=== PATIENT | female | born 1950 | race Caucasian/White ===

== ENCOUNTER 2023-10-12 13:54 | Outpatient (OUT) | payer MEDICARE, SELFPAY ==
--- NOTE | 2023-10-12 13:55 | VEIN_ITS ---
Patient Name: JACQUELIN SORTO MR#: [id number] : 1950 Exam Date: 10/12/2023 Ordering Doctor: DR JB LI M.D. RADIOLOGY REPORT PROCEDURE: VC EXT VENOUS REFLUX KAYLIE LMTD COMPARISON: None. INDICATIONS: I83.813 Pain due to varicose veins of bilateral legs TECHNIQUE: Duplex imaging of the lower extremity to assess the deep and superficial venous system for the presence of deep or superficial venous incompetence and to document the location and severity of disease. The study includes evaluation of the great saphenous vein (GSV), anterior accessory saphenous vein (AASV) and small saphenous vein (SSV). Patient scanned in reverse Trendelenburg and standing. FINDINGS: RIGHT LOWER EXTREMITY: Saphenofemoral Junction Reflux: Yes 7.9mm 3.0 sec GSV: Diam (mm) Reflux/ Time (sec) Proximal Thigh 9.0 Yes 0.9 Mid Thigh 4.0 Yes 2.5 Distal Thigh N/A Prox Calf N/A Mid Calf N/A Saphenopopliteal Junction Reflux: 5.8mm Yes 0.9 SSV: Proximal Calf 5.9 Yes 0.7 Mid Calf 1.9 Yes 0.4 AASV: Not present Thrombi: No acute or chronic thrombus. Compressibility: Normal. Flow: Mild deep venous reflux. Preforator: Dist/med lower leg 3.2 mm, 0.9s reflux. Prox/med lower leg 3.1 mm, 3.3s reflux. Multiple perfs connected to VV in thigh anterior. Largest 3.9 mm. Tech Note: GSV was previously treated. Incompetent varicose vein medial/anterior knee measures 4.1 mm with 0.6s reflux. Varicose vein medial/anterior/distal thigh measures 4.2 mm with 1.5s reflux. LEFT LOWER EXTREMITY: Saphenofemoral Junction Reflux: Yes 8.4 mm 4.8 sec GSV: Diam (mm) Reflux/Time (sec) Proximal Thigh 8.1 Yes 1.5 Mid Thigh 3.0 Yes 0.5 Distal Thigh 3.2 Yes 0.5 Prox Calf 2.4 Yes 0.9 Mid Calf 2.0 Yes 0.4 Saphenopopliteal Junction Relux: 4.1 mm Yes 0.4 SSV: Proximal Calf 6.0 Yes 0.3 Mid Calf 2.4 No AASV: Proximal Thigh 3.9 Yes 1.7 Mid Thigh 2.3 Yes 0.6 Distal Thigh Thrombi: No acute or chronic thrombus. Compressibility: Normal. Flow: Minimal deep venous reflux. Online Communications Manager: Mid medial lower leg 2.6 mm with 0.7s reflux. Prox anterior lower leg 1.8 mm with 0.4s reflux. Tech Note: Edema noted in proximal anterior lower leg in area of pain. Incompetent varicose vein proximal anterior lower leg measures 3.1 mm with 0.5s reflux. CONCLUSION: 1. Venous insufficiency in the remainder of the proximal right great saphenous vein with no associated varicosities 2. Kndt-pm-[id number] venous insufficiency left great saphenous vein with saphenopopliteal junction reflux and dilatation 3. Axpl-bz-brrrppei reflux left anterior accessory saphenous vein without dilatation 4. Bilateral incompetent varicose veins Dictated by: Jb Li MD on 10/12/2023 at 15:23 Approved by: Jb Li MD on 10/12/2023 at 15:28
--- NOTE | 2023-10-12 13:55 | VEIN_ITS ---
Patient Name: JACQUELIN SORTO MR#: [id number] : 1950 Exam Date: 10/12/2023 Ordering Doctor: DR JB LI M.D. RADIOLOGY REPORT PROCEDURE: [facility] [place] - OFFICE VISIT INITIAL COMPARISON: None. PROGRESS NOTES: 72-year-old female who presents with a long history of lower extremity pain swelling and varicose veins going back more than 20 years. The patient has previously been treated in the [facility] with intravenous laser ablation of the right great saphenous vein in 2001 followed by injection sclerotherapy in 2016. The patient reports aching heavy dull pain rating the pain as a 5 on a scale of 1-10. The patient's symptoms are significantly exacerbated by prolonged standing and are only partially relieved by rest, leg elevation, exercise, support stockings which she has worn for many years and over the counter Advil. The patient has had 2 episodes of acute right leg hemorrhage related to razor trauma from pre hemorrhagic veins. The patient denies any signs and symptoms to suggest arterial ischemia. The patient describes a family history significant for hypertension in her mother fluid heart disease in her father. . Fourth grandchildren. Patient's medical history is significant for breast cancer 15 years ago, hypertension, hyperparathyroidism, squamous cell carcinoma. Past surgical history significant for appendectomy, , parathyroidectomy, shoulder surgery, total hysterectomy, left knee replacement. The patient occasionally drinks alcohol. The patient has never smoked. No illicit drug use. No history of deep venous thrombus or pulmonary embolus. See separate history and physical for medication list. The patient has worn compression stockings for 20 years After review of nurse notes, history and physical exam I discussed at length the pathophysiology of venous hypertension and possible treatments, therapies and strategies available. We discussed at length the importance of elevating the lower extremities above the level of the heart, increased physical activity and compression stocking use. We discussed intravenous laser ablation, micro foam chemical ablation and injection sclerotherapy. Risks benefits alternatives were discussed. Surgical interventions including ligation and stripping and phlebectomy were discussed with the patient. The patient's questions were answered. Ultrasound venous reflux study performed the same day was discussed at length with the patient. The report demonstrates mild to moderate left great saphenous vein venous insufficiency. Mild to moderate left anterior accessory saphenous vein venous insufficiency. Bilateral incompetent varicose veins. PHYSICAL EXAM: The right leg demonstrates multiple dilated varicose veins along the anterior and medial thigh, knee and lower leg. Moderate diffuse reticular and spider veins. Scattered pre hemorrhagic veins on the medial and lateral lower leg. Mild hemosiderin staining. No active ulceration. The left leg demonstrates scattered varicose reticular and spider veins. No subcutaneous edema or hemosiderin staining. No active ulceration. Both thighs, legs and feet were symmetrically warm to the touch. Good posterior tibial and dorsalis pedis pulses were present bilaterally. VEIN/VC Facility NEW Comprehensive IMPRESSION: 1. Left great and anterior accessory saphenous vein venous insufficiency with dilatation 2. Bilateral lower extremity varicose veins, right greater than left. Bilateral pre hemorrhagic veins, right greater than left 3. No significant lower extremity subcutaneous edema. Mild hemosiderin staining on the right 4. No flow significant arterial disease 5. CEAP: C4a, Ep, As, Pr PLAN: 1. Possible endovenous laser ablation of the left great saphenous vein followed by left anterior accessory saphenous vein 2. Bilateral micro foam chemical ablation of incompetent varicose veins 3. Injection sclerotherapy bilateral reticular and spider veins 4. Continue long-term use of bilateral near thigh-high 20-30 mm compression stockings 5. Continue leg elevation and physical activity for symptomatic relief Nurse notes, history and physical were reviewed and confirmed, see attached forms. The nurse was present throughout the physical exam and consultation Dictated by: Jb Li MD on 10/12/2023 at 16:18 Approved by: Jb Li MD on 10/12/2023 at 16:36
== END 2023-10-12 13:55 | disposition home or self-care (01) ==
LOC: VC 13:54
PROVIDERS: PCP Internal Medicine; Visit Provider Internal Medicine
DX: I83.813 Varicose veins of bilateral lower extremities with pain (principal)
CPT/HCPCS: 93970; G0463

== ENCOUNTER 2024-01-18 08:56 | Outpatient (OUT) | payer MEDICARE, SELFPAY ==
--- NOTE | 2024-01-17 10:52 | V.VEINS.HP ---
Vital Signs 01/17/24 11:31 01/18/24 09:09 Height 5 ft 3 in Weight 87.09 kg BMI 34.0 BP 158/78 H BP Location Right Brachial BP Position Sitting BP Cuff Size Adult BP Source Manual Cuff Respiration 16 Pulse 92 H Pulse Source Monitor Pulse Oximetry (%) 98 Oxygen Delivery Method Room Air Comment The patient's blood pressure is elevated. Varicose Veins Patient is a 73 year old female in this day for EVLT of leftt GSV. Carlos Garcia MD personally performed the services described in this documentation, as scribed by Veto Allred RN in my presence and it is both accurate and complete. Veto Garcia RN, am scribing for, and in the presence of, Dr. Carlos Yeung and in the presence of the patient. thigh: bilateral (symptoms left > right leg), knee: bilateral, calf: bilateral, ankle: bilateral and beltre: bilateral aching, cramping and dull 5 20 years Worsened in recent months: Yes standing elevating extremities, compression stockings and exercise Reports fatigue, heaviness, limb pain, edema and leg edema History of lower extremity trauma: No Superficial thrombophlebitis: No Family history of varicose veins: yes (Patient's mother) Has patient had previous lower extremity venous surgery: Yes Patient has previously received the following treatment(s) for lower extremity varicose veins: Reports sclerotherapy and laser therapy Does patient have a history of : yes Does patient intend to have future pregnancies: no Has patient had lower extremity venous scan with relux testing: Yes Support hose used: Yes Problems walking or doing physical activity: Yes How does it affect you: decreased ability secondary to pain/edema Do you walk much: Yes Do you stand much: No Review of Systems ROS Narrative Carlos Garcia MD personally performed the services described in this documentation, as scribed by Veto Allred RN in my presence and it is both accurate and complete. Veto Garcia RN, am scribing for, and in the presence of, Dr. Carlos Yeung and in the presence of the patient. Status of ROS 10 or more systems reviewed and unremarkable except as noted in history and below Cardiovascular Reports: edema Integumentary/Breast Reports: skin pain, skin tenderness and changes in skin color Neurological Reports: weakness in extremities PFSH [facility] Medical History (Updated 01/17/24 @ 11:23 by Veto Allred) Renal artery aneurysm ?I72.2 - Aneurysm of renal artery (ICD-10) delivery delivered ?O82 - Encounter for delivery without indication (ICD-10) Pain due to varicose veins of both lower extremities ?I83.813 - Varicose veins of bilateral lower extremities with pain (ICD-10) Squamous cell carcinoma Hyperparathyroidism ?E21.3 - Hyperparathyroidism, unspecified (ICD-10) 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 - Other specified disorders of arteries and arterioles (ICD-10) Hypertension ?I10 - Essential (primary) hypertension (ICD-10) Cataract ?H26.9 - Unspecified cataract (ICD-10) Breast cancer ?C50.919 - Malignant neoplasm of unspecified site of unspecified female breast (ICD-10) Arthritis ?M19.90 - Unspecified osteoarthritis, unspecified site (ICD-10) Anxiety ?F41.9 - Anxiety disorder, unspecified (ICD-10) Surgical History (Updated 01/18/24 @ 10:40 by Veto Allred) Status post ablation of incompetent vein using laser ?Z98.890 - Other specified postprocedural states (ICD-10) History of arthroplasty of left knee ?Z96.652 - Presence of left artificial knee joint (ICD-10) History of tonsillectomy and adenoidectomy ?Z90.89 - Acquired absence of other organs (ICD-10) H/O: hysterectomy ?Z90.710 - Acquired absence of both cervix and uterus (ICD-10) History of surgical removal of squamous cell carcinoma of skin of synagogue region ?Z98.890 - Other specified postprocedural states (ICD-10) ?Z85.828 - Personal history of other malignant neoplasm of skin (ICD-10) H/O parathyroidectomy ?Z98.890 - Other specified postprocedural states (ICD-10) ?Z90.89 - Acquired absence of other organs (ICD-10) Hx of appendectomy ?Z90.49 - Acquired absence of other specified parts of digestive tract (ICD-10) Family History (Updated 01/17/24 @ 11:24 by Veto Allred) Other Family history of hypertension Heart disease Pain due to varicose veins of both lower extremities Social History (Updated 01/17/24 @ 11:24 by Veto Allred) Within the past year, how often did you have a drink containing alcohol: 2-4 times a month Smoking status: Never smoker Non-prescribed substance use: denies use Meds Home Medications and Allergies Home Medications ?Medication ?Instructions ?Recorded ?Confirmed ?Type lorazepam 0.5 mg tablet (Ativan) 0.25 mg PO DAILY PRN anxiety 01/17/24 01/17/24 History multivitamin (Daily Multi-Vitamin 1 tab PO DAILY 01/17/24 01/17/24 History tablet) omeprazole 40 mg capsule,delayed 40 mg PO DAILY 01/17/24 01/17/24 History release triamterene 37.5 1 cap PO DAILY 01/17/24 01/17/24 History mg-hydrochlorothiazide 25 mg capsule zolpidem 5 mg tablet (Ambien) 01/17/24 History Allergies Allergy/AdvReac Type Severity Reaction Status Date / Time TRACY Inhibitors Allergy Severe Swelling Verified 01/17/24 11:28 of Lip/Tongue/Throat doxycycline Allergy Intermediate Rash Verified 01/17/24 11:28 nitrofurantoin Allergy Intermediate Rash Verified 01/17/24 11:28 Sulfa (Sulfonamide Allergy Rash Verified 01/17/24 11:28 Antibiotics) Exam Narrative Exam Narrative: Carlos Garcia MD personally performed the services described in this documentation, as scribed by Veto Allred RN in my presence and it is both accurate and complete. Veto Garcia RN, am scribing for, and in the presence of, Dr. Carlos Yeung and in the presence of the patient. Constitutional Documenting provider has reviewed patient's vital signs: yes Common normals: oriented x3 Cardio Peripheral pulses: posterior tibial pulses present and dorsalis pedis pulses present Extremity Common normals: normal capillary refill General: calf tenderness and edema Right lower extremity: lower leg Right lower leg: inspection and palpation Left lower extremity: lower leg Left lower leg: inspection and palpation Neuro Common normals: oriented x3 Assessment and Plan Assessment and Plan (1) Pain due to varicose veins of both lower extremities: Plan Paitent to return for f/u examination by physician along with left leg limited u/s Carlos Garcia MD personally performed the services described in this documentation, as scribed by Veto Allred RN in my presence and it is both accurate and complete. I, Veto Allred RN, am scribing for, and in the presence of, Dr. Carlos Yeung and in the presence of the patient. Procedures Procedure Instructions Procedures Plan of care: Risks and benefits of the procedure were discussed at length and informed written consent was obtained.? Time-out completed for verification of correct patient, procedure and site.? Staff present during time-out: Veto Allred RN,? Carlos Yeung MD, Charisma Alexandre [facility],. Time Out Time__948 Patient prepped and procedure performed in usual sterile fashion. Risk of injury related to use of Diode laser and/or laser devices?__CR___ ? Serial number of laser used :? [id number] Control panel self test performed, electrical cords in good condition, floor is dry, basin of water available, fire extinguisher in close proximity_CR__ Polycarbonate goggles available and Laser warning signs outside of doors___CR__ Eye protection provided to patient and staff in room_CR___ Use of laser retardant drapes and dull blackened instruments as directed__CR___ Use of nonflammable prep solutions and use of saline soaked sponges to protect tissues as indicated _CR___ Length _20 cm Laser operated by _Dr. Yeung Physician verbal confirmation laser locked in place__CR__ Laser start time (date and time) _01/18/2024@_1002 Laser stop time(date and time) __01/18/2024@__1005 Gaytan _8.0___ Average laser use __1212 Joules Average laser use__151 seconds Pulse continuous ___CR_? Pulse intermittent ___ Amount of Tumescent used _125cc Evaluated patient for signs and symptoms of electrical injury __CR___ ? Skin clear at insertion site __CR___ Patient tolerated procedure well.? Left leg Coban dressing applied to access site.? Applied left thigh high leg compression stocking. Will return on 01/24/2024 for left leg limited venous ultrasound and exam. ICarlos MD personally performed the services described in this documentation, as scribed by Veto Allred RN in my presence and it is both accurate and complete. I, Veto Allred RN, am scribing for, and in the presence of, Dr. Carlos Yeung and in the presence of the patient.
[2024-01-17 11:31] VITALS: BMI 34.0
--- NOTE | 2024-01-17 11:49 | P.DS_ITS ---
Discharge Plan Discharge Disposition: Home, Self-Care Outpatient Diagnostics: VC Facility EST LMTD (Routine) Timeframe: 2 Weeks Facility: [facility] - Location: Vein Center Ordered By: Carlos Yeung VC EXT Venous LT Limited (Routine) Timeframe: 2 Weeks Facility: [facility] - Location: Vein Center Ordered By: Carlos Yeung Follow Up Appointments: 01/24/2024 Plan of Treatment: f/u evaluation with physician along with left leg limited u/s Patient Instructions: Endovenous Ablation (DC) Print Language: Hungarian Discharge Date/Time: 01/18/24 10:41
[2024-01-18] MEDS: LIDOCAINE HCL 1% 100 MG/10 ML MDV INJ (08:59)
[2024-01-18] MEDS: 0.9 % SODIUM CHLORIDE 500 ML, LIDOCAINE HCL 20 ML, SODIUM BICARBONATE 10 MEQ INJ (09:00)
--- NOTE | 2024-01-18 09:02 | VEIN_ITS ---
[address] [address] Patient Name: JACQUELIN SORTO MRN: [id number] date: 1950 Sex: F Assigned Patient Location: Current Patient Location: Accession/Order Number: [id number] Exam Date: 01/18/2024 09:03 Report Date: 01/18/2024 11:49 At the request of: ELPIDIO IRIZARRY Procedure: VC Endovenous Ablation 1VeinLT EXAMINATION: VC Endovenous Ablation 1VeinLT HISTORY: I83.813 - Varicose veins of bilateral lower extremities w... The risks and benefits of the procedure had been previously discussed, and were rediscussed at length. Informed written consent was obtained. Veto Allred RN and Charisma Adrian RDMS assisted. Time out procedure was performed. The left lower extremity was prepared and draped in the usual sterile fashion to allow knee flexion in the sterile field. Duplex ultrasound probe was draped in a sterile cover, sterile transmission gel was used. Venous mapping was performed with the areas of dilation and large tributaries marked. The total length was 20 cm from the entry distal thigh to 3 cm below the Saphenofemoral junction. The diameter of the left great saphenous vein ranged from 8.1 mm. A 30 gauge needle and 1% buffered lidocaine was used to anesthetize the entry site. A 4 mm incision was made with a scalpel and the saphenous vein was entered percutaneously under direct ultrasound guidance with a micropuncture set, a single stick was successful in gaining access. A micro-guide wire was inserted and the needle removed. A micro-set including a dilator was inserted over the microwire and the needle and dilator were removed. A guide wire was inserted through the micro-set and guided through the saphenous vein to the saphenofemoral junction. The dilator was removed and an introducer sheath was inserted over the wire until the end of the sheath entered the saphenofemoral junction. The dilator and wire were removed and the 600 micron fiber was introduced and placed and positioned so that it extended beyond the sheath and was 3 cm distal to the saphenofemoral or saphenopopliteal junction. Final position of the fiber was determined by ultrasound guidance and duplex imaging. Tumescent anesthetic was delivered by ultrasound guidance. 125 cc of fluid was delivered along the entire course of the saphenous vein. The solution consisted of 1000 cc of normal saline with 40 mL of 1% lidocaine and 20 mL of sodium bicarbonate. A final positioning check was made. The energy source was turned on by means of the foot pedal and the fiber and sheath were withdrawn. The total number of Joules delivered was 1212. The laser was active for 151 seconds under continuous pulse, average laser use of 8 J. Laser start time: 10:02 AM Laser stop time: 10:05 AM Date: 01/18/2024. A duplex ultrasound revealed compressibility and flow at the saphenofemoral junction immediately after the procedure. Hemostasis at the access site was achieved. The skin incision of the saphenous vein was closed with a 4 x 4. A compression stocking was applied. Postop instructions were given. A follow up appointment was recommended and scheduled. The patient tolerated the procedure well. Electronically authenticated by: ELPIDIO IRIZARRY Date: 01/18/2024 11:49
[2024-01-18 09:09] VITALS: BP 158/78; PULSE 92; O2SAT 98
--- OUTSIDE RECORDS SUMMARY | 2024-01-18 09:18 | XMS_ITS | CCD ---
Author Organization [facility] Care Team Providers Care Tool Designer Name Role Phone Gonsalo Hubbard MD Primary Care Provider JALEN DELAROSA Attending Unavailable Gonsalo Hubbard Primary Care Unavailable JALEN DELAROSA Attending Unavailable Gonsalo Hubbard Primary Care Unavailable JALEN DELAROSA Attending Unavailable Gonsalo Hubbard Primary Care Unavailable JALEN DELAROSA Attending Unavailable PCP, NONE Primary Care Unavailable JALEN DELAROSA Attending Unavailable Gonsalo Hubbard Primary Care Unavailable Gonsalo Hubbard MD Primary Care Provider KAYLA MATA Attending Unavailable KAYLA MATA Referring Unavailable GONSALO HUBBARD Primary Care Unavailable KAYLA MATA Referring Unavailable GONSALO HUBBARD Primary Care Unavailable GONSALO HUBBARD Primary Care Unavailable SHARON SALDIVAR Attending Unavailable SHARON SALDIVAR Referring Unavailable GONSALO HUBBARD Primary Care Unavailable SHARON SALDIVAR Referring Unavailable Gonsalo Hubbard Admitting Unavailable Gonsalo Hubbard Primary Care Unavailable Gonsalo Hubbard Attending Unavailable Gonsalo Hubbard Referring Unavailable Gonsalo Hubbard MD Unavailable Gonsalo Hubbard MD Primary Care Provider Abhishek TSAI, Eliud Cuevas Unavailable Ifeanyi Leavitt MD Unavailable Sandro Trejo MD Unavailable [phone] GONSALO HUBBARD Referring Unavailable SAMIA SANZ Attending Unavailable GONSALO HUBBARD Attending Unavailable GRAZYNA BERMUDEZ Attending Unavailable GRAZYNA BERMUDEZ Referring Unavailable GONSALO HUBBARD Attending Unavailable Allergies Allergy Classification Reported Allergen(s) Allergy Type Date of Onset Reaction(s) Facility (13 sources) Doxycycline; Translations: [DOXYCYCLINE] Drug Allergy 8 Rash [facility] Work Phone: (13 sources) Sulfonamides (Antibiotic); Translations: [SULFA (SULFONAMIDE ANTIBIOTICS)] Drug Allergy 4 Anaphylaxis, Unknown [facility] (1 source) Doxycycline Drug Allergy 2 [facility] Rep[facility] (1 source) Sulfonamides (Antibiotic) Drug allergy (disorder) 2 [facility]ository (2 sources) Angiotensin-conver ting enzyme inhibitor agent Drug Allergy 3 Angioedema [facility] (2 sources) Nitrofurantoin Drug Allergy 3 GI intolerance [facility] Healthcare Medications Current Medications Medication Drug Class(es) Dates Sig (Normalized) Sig (Original) aluminum hydroxide 80 mg / magnesium trisilicate 14.2 mg chewable tablet (2 sources) Alum Hydroxide-Mag Trisilicate (Gaviscon) 80-14.2 MG chewable tablet Chew 1 tablet if needed. 0 Active ascorbic acid 60 mg / beta carotene 5000 unt / copper sulfate 40 mg / dl-alpha tocopheryl acetate 30 unt / sodium selenite 0.04 mg / zinc oxide 40 mg oral tablet (2 sources) Vitamin C take 1 tablet by mouth once daily Multiple Vitamin (Multivitamin Adult) tablet Take 1 tablet by mouth 1 (one) time each day. 0 Active bifidobacterium infantis 4 mg oral capsule (2 sources) End: 06-30-2023 take 1 capsule by mouth once daily Probiotic Product (Align) capsule Take 1 capsule by mouth 1 (one) time each day at the same time. 0 06/30/2023 Discontinued (Other) citalopram 10 mg oral tablet (12 sources) Serotonin Reuptake Inhibitor take 1 tablet by mouth once daily citalopram (CeleXA) 10 MG tablet Take 10 mg by mouth 1 (one) time each day at the same time. 0 Active Comment on above: Take 10 mg by mouth once daily. eye vitamin supplement (Ocuvite Eye Health Formula) capsule (2 sources) Start: 04-14-2012 take 1 capsule by mouth in the morning eye vitamin supplement (Ocuvite Eye Health Formula) capsule Take 1 capsule by mouth in the morning. 0 04/14/2012 Active fluticasone propionate 0.05 mg/actuat metered dose nasal spray (2 sources) Corticosteroid Start: 02-28-2023 take 2 spray(s) nasal route once daily as needed fluticasone (Flonase) 50 MCG/ACT nasal spray Indications: Seasonal allergic rhinitis, unspecified trigger USE 2 SPRAYS IN EACH NOSTRIL ONCE DAILY NEEDED 48 g 3 02/28/2023 Active hydroCHLOROthiazide 25 mg / triamterene 37.5 mg oral capsule (12 sources) Potassium-sparing Diuretic, Thiazide Diuretic Start: 03-25-2023 take 1 capsule by mouth in the morning triamterene-hydr oCHLOROthiazide (Dyazide) 37.5-25 MG capsule Indications: Essential hypertension (CMS/HCC) Take 1 capsule by mouth in the morning. 90 capsule 3 03/25/2023 Active Start: 09-12-2014 take 1 capsule by mouth once daily triamterene-hydrochlorothiazide 37.5-25 mg per capsule Take 1 capsule by mouth once daily. 0 09/12/2014 Active Comment on above: Take 1 capsule by mo [facility] once daily. levocetirizine dihydrochloride 5 mg oral tablet (2 sources) Histamine-1 Receptor Antagonist take 1 tablet by mouth once daily levocetirizine (Xyzal) 5 MG tablet Take 5 mg by mouth 1 (one) time each day at the same time. 0 Active LORazepam 0.5 mg oral tablet (2 sources) Benzodiazepine Start: 2022 take 1 tablet by mouth every eight hours for anxiety LORazepam (Ativan) 0.5 MG tablet Indications: SIOBHAN (generalized anxiety disorder) ([facility]/HCC) Take 1 tablet (0.5 mg) by mouth every 8 (eight) hours if needed for anxiety 30 tablet 0 04/26/2023 Active MISC NATURAL PRODUCTS PO (2 sources) MISC NATURAL PRO DUCTS PO Take 1 each by mouth if needed. CBD Gummies 0 Active omeprazole 20 mg delayed release oral capsule (2 sources) Proton Pump Inhibitor Start: 2022 take 1 capsule by mouth before mealtime omeprazole (PriLOSEC) [address] capsule Indications: Gastroesophageal reflux disease without esophagitis Take 1 capsule (20 mg) by mouth in the morning. Take before meals. 90 capsule 3 03/25/2023 Active zolpidem tartrate 5 mg oral tablet (12 sources) gamma-Aminobutyric Acid-ergic Agonist Start: 2022 End: 2023 take 1 tablet by mouth once daily zolpidem (Ambien) 5 MG tablet Indications: Primary insomnia Take 1 tablet (5 mg) by mouth 1 (one) time each day at the same time 90 tablet 1 05/05/2023 11/01/2023 Active Start: 09-25-2014 take 1 tablet by twyla th once daily at bedtime zolpidem (AMBIEN) 5 mg tablet Take 1 tablet by mouth daily at bedtime. 0 09/25/2014 Active Comment on above: Take 1 tablet by twyla th daily at bedtime. Completed/Discontinued Medications Medication Drug Class(es) Dates Sig (Normalized) Sig (Original) ALPRAZolam 0.25 mg oral tablet (10 sources) Benzodiazepine Start: 09-03-2014 ALPRAZolam (XANAX) 0.25 mg tablet Take 1 tablet by mouth as needed. 0 09/03/2014 Active Comment on above: Take 1 tablet by twyla th as needed. amoxicillin 500 mg oral capsule (7 sources) Penicillin-class Antibacterial Start: 02-26-2021 amoxicillin (POLYMOX, AMOXIL) 500 mg capsule Take 4 capsules by mouth 1 hour before dental procedure 20 capsule 0 02/26/2021 Active Comment on above: Take 4 capsules by m out 1 hour before dental procedure Ascorbic Acid / Beta Carotene / cuprous oxide / Lutein / sodium selenate / Vitamin E / Zinc Oxide (10 sources) Vitamin C Start: 03-25-2004 OCUVITE TABLET takes one per day 0 03/25/2004 Active Comment on above: takes one per day aspirin 325 mg delayed release oral tablet (2 sources) Platelet Aggregation Inhibitor, Nonsteroidal Anti-inflammatory Drug Start: 12-06-2019 End: 04-01-2020 take 1 tablet by mouth twice daily aspirin, enteric coated (ASPIRIN, ENTERIC COATED) 325 mg EC tablet Take 1 tablet by mouth twice daily. 60 tablet 1 12/06/2019 04/01/2020 Discontinued (Course of therapy completed) Comment on above: Take 1 tablet by twyla th twice daily. docusate sodium 100 mg oral capsule (10 sources) Start: 12-06-2019 take 1 capsule by mouth every twelve hours as needed docusate sodium (COLACE) 100 mg capsule Take 1 capsule by mouth twice daily as needed for Constipation. 60 capsule 0 12/06/2019 Active Comment on above: Take 1 capsule by mo [facility] twice daily as needed for Constipation. lysine 500 mg oral tablet (10 sources) Start: 03-25-2004 L-LYSINE 500MG TABLET takes daily 0 03/25/2004 Active Comment on above: takes daily OTC NUTRITIONAL SUPPLEMENT (10 sources) take 1 tablet by mouth once daily OTC NUTRITIONAL SUPPLEMENT Take 1 tablet by mouth once daily. Allergy medication 0 Active Comment on above: Take 1 tablet by twyla th once daily. Allergy medication potassium chloride 10 meq extended release oral tablet (3 sources) take 1 tablet by mouth twice daily potassium chloride (K-TAB) 10 mEq tablet Take 10 mEq by mouth twice daily. 0 Active Comment on above: Take 10 mEq by mouth twice daily. Problems Active Problems Problem Classification Problem Date Documented Date Episodic/Chronic Acquired foot deformities (2 sources) Hammer toe; Translations: [Other hammer toe(s) (acquired), right foot] Onset: 11-29-2022 11-29-2022 Chronic Anxiety disorders (2 sources) Generalized anxiety disorder; Translations: [Generalized anxiety disorder] Onset: 11-29-2022 11-29-2022 Chronic Aortic; peripheral; and visceral artery aneurysms (15 sources) Aneurysm of renal artery; Translations: [Aneurysm of renal artery] Onset: 09-14-2012 05-11-2021 Chronic Cancer of breast (19 sources) Malignant neoplasm of female breast; Translations: [Malignant neoplasm of unspecified site of unspecified female breast] Onset: 11-09-2007 11-12-2017 Chronic Cancer of breast (15 sources) History of malignant neoplasm of breast; Translations: [Personal history of malignant neoplasm of breast] Onset: 12-02-2017 12-02-2017 Episodic Chronic kidney disease (3 sources) Chronic kidney disease, unspecified; Translations: [Chronic kidney disease stage 3A ] Onset: 12-15-2021 11-29-2022 Chronic Diverticulosis and diverticulitis (2 sources) Diverticular disease; Translations: [Diverticulosis of intestine, part unspecified, without perforation or abscess without bleeding] Onset: 11-29-2022 11-29-2022 Chronic Esophageal disorders (2 sources) Gastroesophageal reflux disease; Translations: [Gastro-esophageal reflux disease without esophagitis] Onset: 11-29-2022 11-29-2022 Chronic Essential hypertension (12 sources) Hypertensive disorder; Translations: [Essential (primary) hypertension] Onset: 09-14-2012 11-29-2022 Chronic Hypertension with complications and secondary hypertension (1 source) Hypertensive chronic kidney disease with stage 1 through stage 4 chronic kidney disease, or unspecified chronic kidney disease; Translations: [Hypertensive chronic kidney disease w stg 1-4/unsp chr kdny] Onset: 12-15-2021 Chronic Mood disorders (2 sources) Mild major depression; Translations: [Major depressive disorder, single episode, mild] Onset: 11-29-2022 11-29-2022 Chronic Nutritional deficiencies (2 sources) Vitamin D deficiency; Translations: [Vitamin D deficiency, unspecified] Onset: 11-29-2022 11-29-2022 Chronic Osteoarthritis (20 sources) Arthritis of wrist; Translations: [Primary osteoarthritis, unspecified wrist] Onset: 11-25-2010 11-25-2010 Chronic Osteoporosis (1 source) Age-related osteoporosis without current pathological fracture; Translations: [Age-related osteoporosis w/o current pathological fracture] Onset: 01-12-2022 Chronic Other circulatory disease (1 source) Other specified disorders of arteries and arterioles; Translations: [Other specified disorders of arteries and arterioles] Onset: 01-12-2022 Chronic Other circulatory disease (1 source) Presence of other vascular implants and grafts; Translations: [Presence of other vascular implants and grafts] Onset: 12-15-2021 Chronic Other connective tissue disease (1 source) Presence of left artificial knee joint; Translations: [Presence of left artificial knee joint] Onset: 12-15-2021 Chronic Other connective tissue disease (2 sources) History of total knee arthroplasty; Translations: [Presence of left artificial knee joint] 04-01-2020 Chronic Other ear and sense organ disorders (12 sources) Sensorineural hearing loss; Translations: [Unspecified sensorineural hearing loss] Onset: 11-26-2004 11-26-2004 Chronic Other endocrine disorders (1 source) Primary hyperparathyroidism; Translations: [Primary hyperparathyroidism] Onset: 12-15-2021 Chronic Other endocrine disorders (2 sources) Primary hyperparathyroidism; Translations: [Primary hyperparathyroidism] Onset: 09-10-2015 04-26-2023 Chronic Other lower respiratory disease (2 sources) Cough; Translations: [Cough, unspecified type] 06-30-2023 Episodic Other nutritional; endocrine; and metabolic disorders (1 source) Obesity, unspecified; Translations: [Obesity, unspecified] Onset: 01-12-2022 Chronic Other nutritional; endocrine; and metabolic disorders (1 source) Body mass index (BMI) 33.0-33.9, adult; Translations: [Body mass index [BMI] 33.0-33.9, adult] Onset: 01-12-2022 Chronic Other nutritional; endocrine; and metabolic disorders (4 sources) Morbid obesity; Translations: [Morbid (severe) obesity due to excess calories] Onset: 11-29-2022 06-30-2023 Chronic Other upper respiratory disease (2 sources) Seasonal allergic rhinitis; Translations: [Other seasonal allergic rhinitis] Onset: 11-29-2022 11-29-2022 Chronic Other upper respiratory infections (2 sources) Viral upper respiratory tract infection; Translations: [Acute upper respiratory infection, unspecified] 06-30-2023 Episodic Residual codes; unclassified (1 source) Pain, unspecified; Translations: [Pain] Onset: 04-12-2023 Episodic Residual codes; unclassified (4 sources) Insomnia; Translations: [Insomnia, unspecified] Onset: 11-29-2022 06-30-2023 Episodic Unclassified (10 sources) DISPOSITION AND FOLLOW-UP Onset: 09-14-2012 05-11-2021 Unclassified (1 source) Personal history of COVID-19; Translations: [Personal history of COVID-19] Onset: 01-12-2022 Unclassified (1 source) Encounter for screening mammogram for malignant neoplasm of breast; Translations: [Encounter for screening mammogram for malignant neoplasm of breast] Onset: 04-19-2023 Viral infection (1 source) COVID-19; Translations: [COVID-19] Onset: 12-15-2021 Past or Other Problems Problem Classification Problem Date Documented Da te Episodic/Chronic Allergic reactions (5 sources) Allergy status to sulfonamides status; Translations: [Allergy status to other antibiotic agents status] Onset: 12-15-2021 11-29-2022 Episodic Joint disorders and dislocations; trauma-related (20 sources) Acute tear of medial meniscus of left knee; Translations: [Other tear of medial meniscus, current injury, left knee, initial encounter] Onset: 10-13-2017 Resolved: 04-26-2023 10-27-2017 Episodic Nonmalignant breast conditions (10 sources) Breasts asymmetrical; Translations: [Disproportion of reconstructed breast] Onset: 12-02-2017 12-02-2017 Episodic Other aftercare (1 source) Other retirement (current) drug therapy; Translations: [Other joint terminal attack controller (current) drug therapy] Onset: 01-12-2022 Episodic Other bone disease and musculoskeletal deformities (1 source) Other specified disorders of bone density and structure, right shoulder; Translations: [Oth disrd of bone density and structure, right shoulder] Onset: 01-12-2022 Episodic Other connective tissue disease (2 sources) Unspecified rotator cuff tear or rupture of right shoulder, not specified as traumatic; Translations: [Unsp rotatr-cuff tear/ruptr of right shoulder, not trauma] Onset: 01-12-2022 Episodic Other diseases of veins and lymphatics (2 sources) Peripheral venous insufficiency; Translations: [Venous insufficiency (chronic) (peripheral)] Onset: 11-29-2022 11-29-2022 Episodic Other nervous system disorders (10 sources) Abnormal gait; Translations: [Unspecified abnormalities of gait and mobility] Onset: 12-12-2019 12-12-2019 Episodic Other non-epithelial cancer of skin (1 source) Personal history of other malignant neoplasm of skin; Translations: [Personal history of other malignant neoplasm of skin] Onset: 12-15-2021 Episodic Other non-traumatic joint disorders (7 sources) Pain of right shoulder joint; Translations: [Pain in right shoulder] Onset: 02-20-2021 02-20-2021 Episodic Other non-traumatic joint disorders (2 sources) Pain in right shoulder; Translations: [Pain in right shoulder] Onset: 01-21-2022 Episodic Other screening for suspected conditions (not mental disorders or infectious disease) (20 sources) Patient encounter status; Translations: [Encounter for screening mammogram for malignant neoplasm of breast] Onset: 07-21-2006 11-24-2020 Episodic Other skin disorders (10 sources) Disorder of skin; Translations: [Hypertrophic disorder of the skin, unspecified] Onset: 03-25-2004 03-25-2004 Episodic Other skin disorders (10 sources) Mass of knee; Translations: [Localized swelling, mass and lump, left lower limb] Onset: 01-05-2018 01-06-2018 Episodic Otitis media and related conditions (10 sources) Dysfunction of eustachian tube; Translations: [Other specified disorders of Eustachian tube, unspecified ear] Onset: 11-26-2004 11-26-2004 Episodic Residual codes; unclassified (8 sources) History of right mastectomy; Translations: [Acquired absence of right breast and nipple] Onset: 12-02-2017 Resolved: 04-26-2023 12-02-2017 Episodic Residual codes; unclassified (1 source) Acquired absence of both cervix and uterus; Translations: [Acquired absence of both cervix and uterus] Onset: 01-12-2022 Episodic Residual codes; unclassified (1 source) Procedure and treatment not carried out because of other contraindication; Translations: [Proc/trtmt not carried out because of contraindication] Onset: 12-15-2021 Episodic Sprains and strains (2 sources) Strain of muscle, fascia and tendon of other parts of biceps, right arm, initial encounter; Translations: [Strain of musc/fasc/tend prt biceps, right arm, init] Onset: 01-12-2022 Episodic Varicose veins of lower extremity (20 sources) Varicose veins of lower limb co-occurrent with edema; Translations: [Varicose veins of unspecified lower extremity with other complications] Onset: 10-28-2015 10-28-2015 Episodic Results Test Name Value Interpretation Reference Range Facility CT ABDOMEN PELVIS W IV CONTR Thai 01-06-2024 CT ABDOMEN PELVIS W IV CONTRAST EXAM: CT ABDOMEN PELVIS W IV CONTRAST History: Left-sided abdominal pain. Diverticulosis. Change in stools. Technique: Multiple contiguous axial images were obtained of the abdomen and pelvis from the level of the lung bases through the ischial tuberosities with contrast. Multiplanar reformats were obtained. Delayed images were obtained. All CT scans at this facility use dose modulation, iterative reconstruction, and/or weight based dosing when appropriate to reduce radiation dose to as low as reasonably achievable. Comparison: None available Findings: Lung bases are clear. Postsurgical changes of cholecystectomy. The liver, spleen, stomach, pancreas, and adrenal glands are within normal limits. The kidneys enhance uniformly. Moderate right renal atrophy. No urinary tract calculi or hydronephrosis. Urinary bladder is suboptimally distended but otherwise unremarkable. The uterus is absent. Abdominal aorta is nonaneurysmal. Mild atherosclerotic calcification of the abdominal aorta. No retroperitoneal or abdominal/pelvic lymphadenopathy. No small bowel obstruction. Colonic diverticuli are identified, most significantly involving the sigmoid colon. No overt colonic mass or pericolonic inflammation. No findings of acute appendicitis. No free fluid or free air. No acute osseous abnormality. Degenerative changes of the lumbar spine. IMPRESSION: No acute abdominal pelvic process. Moderate right renal atrophy. Colonic diverticulosis without diverticulitis. ELECTRONICALLY SIGNED BY: Gonsalo Alvarez DO Normal Not Available Laboratory - Microbiology an d Antimicrobial susceptibilityon 06-30-2023 SARS-CoV-2 (COVID-19) RNA ANGELICA+probe Ql (Unsp spec) Negative [facility] No Panel Informationon 06-30 FLU A Negative [facility] FLU B Negative [facility] MM screening mammo BI w/CADo n 04-19-2023 MM screening mammo BI w/CAD [facility] [address] [place] [address] Mammography Report Signed Patient: Gilda Sorto MR#: [id number] 0 : 1950 Acct:[id number] Age/Sex: 72 / F ADM Date: 04/19/23 Loc: [place] Room: Type: [facility] Attending Dr: Gonsalo Hubbard MD Copies to: Gonsalo Hubbard MD Ordering Provider: Gonsalo Hubbard MD Date of Service: 04/19/23 MM/MM screening mammo BI w/CAD: SCREENING CLINICAL DATA: Screening for malignancy. BILATERAL SCREENING MAMMOGRAMS - FULL FIELD DIGITAL WITH TOMOSYNTHESIS AND CAD Conventional and Tomosynthesis craniocaudal and mediolateral oblique views of both breasts were obtained using low-dose digital technique. Comparison is made to prior studies from 04/16/2022, 11/24/2000, and 11/22/2019. This examination was reviewed with the aid of CAD. There are scattered fibroglandular densities. There is architectural distortion with scarring associated with biopsy clips in the right breast consistent with a history of infected. Benign-appe aring calcifications are present bilaterally. Surgical clips are also noted along the right chest wall consistent with prior axillary lymph node biopsy. There are similar focal asymmetries. There are no dominant masses, typically malignant calcifications or architectural distortion. There has been no significant interval change. MM/MM screening mammo BI w/CAD IMPRESSION: NO MAMMOGRAPHIC EVIDENCE OF MALIGNANCY. ROUTINE FOLLOW-UP IS RECOMMENDED IN ONE YEAR. RESULT CODE: 2 Benign Findings(s) DENSITY CODE: 2 (approximately 25-50% glandular) FOLLOW UP: 1YR The false-negative rate of mammography is approximately 10-percent. Management of a palpable abnormality must be based on clinical grounds. Patient was entered into a reminder system with a target due date for the next mammogram. Impression dictated by: Azam Cason M.D.04/19/2023 1:37 PM Dictation Location: [facility] Transcribed By: ISABELA 04/19/231336 Dictated By: Azam Cason II, MD 04/19/231331 Signed By: 04/19/231336 [facility] CNOVon 04-12-2023 CNOV Office Visit (PLASST ) GILDA SORTO ([id number]) 1950 F Date Time Provider Department 04/12/23 1:00 PM KAYLA MATA During your visit today, we recorded the following information about you: Kayla Mata MD 04/12/2023 4:51 PM Signed PLASTIC SURGERY DEPARTMENT [facility] Hand Surgery Note [x] New referred by []self []physician.......... [] Follow-up CC: ..bilateral wrist/hand pain............ ? HPI: Gilda is a 72 year old female who presents today for bilateral wrist and hand pain. Pain is mostly at the base of the thumb. She has had an injection to the left hand about 11 years ago, which helped with her pain. Job:.retired......... Recreational activities with hands: .beading....... Dominant Hand: right [x] left [] Date onset symptoms: .....years..... Symptoms location -[] RIGHT [] worse -[] LEFT [x] worse Fingers 1[x] 2[] 3[] 4[] 5 [] 1[x] 2[] 3[] 4[] 5 []. []Tingling []Numbness [x]Pain Symptoms location -[] RIGHT [] worse -[] LEFT [] worse Hand [x]Radial []volar [] ulnar [] dorsal [x]Radial []volar [] ulnar [] dorsal wrist []Radial []volar [] ulnar [] dorsal []Radial []volar [] ulnar [] dorsal forearm []Radial []volar [] ulnar [] dorsal []Radial []volar [] ulnar [] dorsal elbow []Radial []volar [] ulnar [] dorsal []Radial []volar [] ulnar [] dorsal arm [] [] shoulder [] [] neck [] [] []Tingling []Numbness [x]Pain Overall PAIN Now 0[] 1[] 2[] 3[x] 4[] 5[] 6[] 7[] 8[] 9[] 10[] Average 0[] 1[] 2[] 3[] 4[] 5[] 6[] 7[] 8[] 9[] 10[] Rest 0[] 1[] 2[] 3[] 4[] 5[] 6[] 7[] 8[] 9[] 10[] Function 0[] 1[] 2[] 3[] 4[] 5[] 6[] 7[] 8[] 9[] 10[] Quality []sharp []dull []aching []sore []taut []pulled []torsion []shooting []pricking []pressing []lacerating []pinching []squeezing []drilling []spasm [] throbbing []burning []cramping []cutting []heavy []itchy []radiating [] electrical []stinging [] cold intolerance How frequently during the day (%): ..100......... Night Symptoms [] Associated Signs/Symptoms Swelling [] Stiffness [x] Weakness [] Prior Trauma? [x]No []Yes Pain? []same []better []worse over time Intervention/Prior Treatment: []no [x]yes [x]Decrease activity level and using heat/ ice []PT/OT,chiropractic treatments, or medically directed home exercise program for..........weeks in the last..........months (date started:...........) []Medications [x]Steroid injection []Splint/cast []Surgery.............. . IMPROVEMENT WITH PREVIOUS STEROID INJECTION: NO [] YES [x] ............% []R []L []R=L []R>L []R Symptoms improved: Tingling [] Numbness [] Pain [x] ANY TINGLING OR NUMBNESS IN THE FEET: NO [] YES [] .............. No results found for: HBA1C Last 10 Encounter BP Readings: Date: BP: 04/16/2022 117/60 11/25/2021 139/89 11/24/2020 130/71 12/05/2019 111/63 11/26/2019 129/61 11/22/2019 123/64 11/22/2019 116/51 11/01/2019 134/57 11/14/2018 134/62 11/01/2018 136/77 CBC Latest Ref Rng AND Units 09/15/2012 11/26/2019 12/06/2019 WBC 3.70 - 11.00 k/uL 8.86 5.18 9.31 RBC 3.90 - 5.20 m/uL 2.86(L) 4.52 3.10(L) HEMOGLOBIN 11.5 - 15.5 g/dL 8.5(L) 14.0 9.5(L) HEMOGLOBIN TOTAL, WHOLE BLOOD 11.5 - 15.5 g/dL - - - HEMATOCRIT 36.0 - 46.0 % 26.9(L) 44.6 30.3(L) MCV 80.0 - 100.0 fL 94.1 98.7 97.7 MCH 26.0 - 34.0 pG 29.7 31.0 30.6 MCHC 30.5 - 36.0 g/dL 31.6 31.4 31.4 RDW-CV 11.5 - 15.0 % 13.4 12.8 12.5 PLATELETS 150 - 400 k/uL 164 259 188 MPV 9.0 - 12.7 fL 9.5 10.2 10.2 BASO% % - 0.8 - ABS NEUT (ANC) 1.45 - 7.50 k/uL - 3.16 - ABS LYMPH 1.00 - 4.00 k/uL - 1.29 - ABS MONO <0.87 k/uL - 0.41 - ABS EOSIN <0.46 k/uL - 0.26 - ABS BASO <0.11 k/uL - 0.04 - DIFF TYPE - - Auto Diff - CMP Latest Ref Rng AND Units 12/08/2019 11/24/2020 11/25/2021 SODIUM 136 - 144 mmol/L 138 138 - POTASSIUM 3.7 - 5.1 mmol/L 4.8 4.5 - CHLORIDE 97 - 105 mmol/L 101 100 - CO2 22 - 30 mmol/L 28 28 - GLUCOSE 74 - 99 mg/dL 100(H) 111(H) - BUN 7 - 21 mg/dL 16 19 - CREATININE 0.58 - 0.96 mg/dL 1.00(H) 1.34(H) - CREATININE (POCT) 0.7 - 1.4 mg/dL - 1.30 1.20 EGFR-ALL OTHER RACES . 55 39 - EGFR- - >60 47 - PROTEIN, TOTAL 6.3 - 8.0 g/dL - - - ALBUMIN 3.9 - 4.9 g/dL - - - CALCIUM, 24 HR URINE 100 - 300 mg/24 hr - - - CALCIUM, TOTAL 8.5 - 10.2 mg/dL 8.6 9.2 - BILIRUBIN, TOTAL 0.2 - 1.3 mg/dL - - - AST 13 - 35 U/L - - - ALT 7 - 38 U/L - - - ALKALINE PHOSPHATASE 34 - 123 U/L - - - YES NO Smoking, vaping, nicotine, cannabis [] [x] Cigarettes/ day.... ? Hormone replacement (contraceptive, post menopause hormone treatment) [] [x] Medication.... Diabetes [] [x] []Type 1? []Type 2 ?Last A1c:..... Systemic inflammatory diseases [] [x] []RA []Gout []Other... Hypertension [] [x] Meds:....... Heart disease or pacemaker [] [x] ............ Family history blood clots [] [x] Personal history blood clots [] [x] Anticoagula (more content not included)... Normal [facility] XR HAND 3V PA/LAT/OBL BILon 04-12-2023 XR HAND 3V PA/LAT/OBL KAYLIE * * *Final Report* * * DATE OF EXAM: Apr 12 2023 12:29PM STX [id number] - XR HAND 3V PA/LAT/OBL KAYLIE / PROCEDURE REASON: Pain * * * * Physician Interpretation * * * * Bilateral hand x-rays: HISTORY: Pain TECHNIQUE: 3 views of both hands were performed. RESULT: Osseous structures are intact, without evidence of an acute fracture. On the RIGHT, moderate joint space narrowing and osteophytosis are present at the triscaphe, first carpometacarpal, first interphalangeal and the second and third distal interphalangeal joints. Smaller osteophytes are present at the first through third metacarpophalangeal, second proximal interphalangeal and the fifth distal interphalangeal joints. No osseous erosions are demonstrated. On the LEFT, moderate joint space narrowing and osteophytosis are present at the triscaphe, first carpometacarpal, first interphalangeal and second distal interphalangeal joints. Smaller osteophytes are present at the first metacarpophalangeal, second proximal interphalangeal and third through fifth distal interphalangeal joints. No osseous erosions are demonstrated. IMPRESSION: 1. Osteoarthritis of both hands and wrists. Twister Doffer: PSCB Transcribe Date/Time: Apr 12 2023 1:52P Dictated by : EDITH LAZO MD This examination was interpreted and the report reviewed and electronically signed by: EDITH LAZO MD on Apr 12 2023 1:54PM EST [id number] Normal [facility] XR WRIST 3V PA/LAT/OBL BILon 04-12-2023 XR WRIST 3V PA/LAT/OBL KAYLIE * * *Final Report* * * DATE OF EXAM: Apr 12 2023 12:29PM STX [id number] - XR WRIST 3V PA/LAT/OBL KAYLIE / PROCEDURE REASON: Pain * * * * Physician Interpretation * * * * Bilateral wrist x-rays: HISTORY: 3 views of both wrists are reviewed. RESULT: Osseous structures are intact, without evidence of an acute fracture. On the RIGHT, moderate joint space narrowing and osteophytosis are present at the triscaphe and first carpometacarpal joints. Osteophyte formation is also noted at the first interphalangeal joint. No osseous erosions are demonstrated. On the LEFT, moderate joint space narrowing and osteophytosis are present at the triscaphe and first carpometacarpal joint. Faint chondrocalcinosis is present. Osteophyte formation is also present at the first interphalangeal and the second proximal interphalangeal joints. No osseous erosions are demonstrated. IMPRESSION: 1. Degenerative arthrosis of both wrists. Twister Doffer: CHARLOTTE Transcribe Date/Time: Apr 12 2023 1:54P Dictated by : EDITH LAZO MD This examination was interpreted and the report reviewed and electronically signed by: EDITH LAZO MD on Apr 12 2023 1:55PM EST [id number] Normal [facility] CNCOon 04-16-2022 CNCO HNO ID: [id number] Author: Mammography Coordinator Service: ? Author Type: Physician Type: Letter Filed: 04/19/2022 11:36 PM Note Text: April 16, 2022 PID: [id number] Gilda Sorto [address] [place] [address] Dear Ms. Sorto, We are pleased to inform you that the results of your recent breast imaging exam on 04/16/2022 are normal. Early detection of cancer is very important. We also understand recommendations regarding breast cancer screening are controversial. Please discuss with your primary care provider which strategy is best for you and whether a mammogram is right for you. Your imaging studies and report will be kept on file at [facility] as part of your permanent medical record and are available for your continuing care. Thank you for allowing us to help in meeting your health care needs. Sincerely, Dr. Perez Interpreting Radiologist [facility] (Normal over 40) Normal [facility] CNOVSPon 04-16-2022 CNOVSP Visit (SP) Office ([facility]) GILDA SORTO ([id number]) 1950 F Date Time Provider Department 04/16/22 12:30 PM [facility] During your visit today, we recorded the following information about you: Temperature Pulse Respiration Blood pressure 98.1 degrees 85/minute 20/minute 117/60 Sue Leblanc MA 04/16/2022 11:54 AM Signed Additional intake questions: Has the patient had fever, nausea, vomiting, diarrhea, constipation, fatigue for > 1 week? No Does the patient have a decreased appetite? No Does patient want to see a [employer]? No (yes to any of above refer patient to schedulers for dietitian appointment) ) Does patient have any new or increased numbness or tingling of extremities? No Is patient interested in fertility information? No Does patient need any prescription refills? No Does patient have an advanced directive in place? Yes, copies are in Epic Electronically Signed By: WESLEY Thomas APRN.[facility] 04/16/2022 2:06 PM Signed ATTENDING PHYSICIAN: Dr. 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 She is presenting today for routine follow up. CURRENT SYSTEMIC THERAPY FOR BREAST CANCER: None PAST THERAPY FOR BREAST CANCER: Right partial mastectomy with SLNBx - 11/27/2007 Adjuvant TC x 4 - 02/29/2008 Radiation therapy - late 2007 Following lung nodules annually INTERVAL HISTORY: Gilda presents today with her and reports that she is doing well. She has no physical concerns today. She denies headaches, diplopia, cough, shortness of breath, bone pain, new lumps/bumps. REVIEW OF SYSTEMS: The remainder of the review of systems is unremarkable. PHYSICAL EXAMINATION: Physical exam listed below was completed in it's entirety today, April 16, 2022 and is unchanged from November 24, 2020 except where noted. General appearance: well appearing, alert, in no acute distress Skin: Skin color, texture, turgor normal, no rashes or lesions Head: unremarkable Neck: Supple, no adenopathy Lungs: lungs clear to auscultation, no wheezing or rhonchi Heart: Negative, RRR Breasts: Right breast exam reveals Partial mastectomy surgical scar, there is no axillary adenopathy, concerning skin changes or palpable lesions. Left breast inspection negative, again there is no axillary adenopathy, concerning skin changes or palpable lesions. Abdomen: Normal abdominal exam, Abdomen soft, non-tender. No masses, organomegaly Extremities:Extremities normal. No deformities or edema. LABS/IMAGING: No labs done at the time of today's exam, mammogram done on 04/16/2022 was unremarkable. IMPRESSION: pT1bN0 triple negative invasive ductal carcinoma of the right breast, diagnosed in 10/2007. She is presenting today for routine follow up s/p right partial mastectomy, adjuvant chemotherapy and radiation currently under observation with no evidence of disease at the time of today's exam. PLAN: After evaluation and review of the ongoing treatment plan, the following referral/recommendation s have been made. (Z12.31) Encounter for screening mammogram for breast cancer (primary encounter diagnosis) (C50.912, Z17.1) Stage 1 breast cancer, ER-, left (HCC) - Encouraged monthly self breast exams - Mammogram Due: 04/2023 - Follow up with myself in 1 year per patient preference - Encouraged to call with any questions or concerns Some elements of all sections of this documentation were copied from my previous note of November 24, 2020 and have been re-examined and updated where appropriate. All elements reflect the medical decision making of today, April 16, 2022. I spent a total of 30 minutes on the date of the service which included preparing to see the patient, [id number] patient care, completing clinical documentation, performing a medically appropriate examination, counseling and educating the patient/family/caregive r, ordering medications, tests, or procedures, communicating with other HCPs (not separately reported), independently interpreting results (not separately reported), communicating results to the patient/family/caregive r, and care coordination (not separately reported). Sharon Saldivar APRN.LACROSSE COACH Referring Provider: SHARON SALDIVAR [[id number]] Allergies As of Date: 04/16/2022 Noted Allergy Reaction SULFA (SULFONAMIDE ANTIBIOTICS) 03/25/2004 10 - Anaphylaxis Comments: rash, trouble breathing DOXYCYCLINE 08/11/2017 2 - Rash Date Reviewed: 04/16/2022 Reviewed by: Sue Leblanc MA - Fully Assessed Reason for Visit: Established Patient [175] Primary Visit Diagnosis:Encounter for screening mammogram for breast cancer [Z12.31] Other Visit Diagnosis:Stage 1 breast cancer, ER-, left (HCC) [C50.912, Z17.1] Order(s):WESLEY (more content not included)... Normal [facility] JAKE SCREENING W TOMOon 04-16 JAKE SCREENING W JOE * * *Final Report* * * DATE OF EXAM: Apr 16 2022 11:12AM CAW 0582 - JAKE SCREENING W JOE / PROCEDURE REASON: Encounter for screening mammogram for breast cancer * * * * Physician Interpretation * * * * RESULT: #[id number] - JAKE SCREENING W JOE BILATERAL DIGITAL SCREENING MAMMOGRAM TOMOSYNTHESIS WITH CAD: 04/16/2022 HISTORY: Encounter For Screening Mammogram For Breast Cancer / Screening Mammogram-Patient reports NO symptoms. SEE TECH NOTE. RESULT: TECHNIQUE: The study was acquired using full field digital technology and interpreted from soft copy. Digital Breast Tomosynthesis (DBT) images were obtained and used to assist in the interpretation of this examination. Current study was also evaluated with a Computer Aided Detection (CAD). Comparison is made to exams dated: 11/24/2020 mammogram - [facility], 11/22/2019 mammogram, 11/14/2018 mammogram - [facility], 11/11/2017 mammogram, and 11/02/2016 mammogram - [facility]. There are scattered fibroglandular elements in both breasts. The patient is status post lumpectomy right breast. The right breast has post-operative findings. The patient is status post reduction left breast. The left breast has post-operative findings. No significant masses, calcifications, or other findings are seen in either breast. IMPRESSION: BENIGN FINDING There is no mammographic evidence of malignancy. A 1 year screening mammogram is recommended. Bernardo garay/ayde:04/16/2022 11:38:26 Pan Pusher(s): RT Mario(R)(M)(BS), [facility] letter sent: Normal over 40 Mammogram BI-RADS: 2 Benign finding Multiple national specialty organizations have released breast cancer screening guidelines for women at average risk for developing breast cancer - guidelines that are based on both evidence and opinion, yet differ on when to start and how often to screen for breast cancer. With representation from Breast Imaging, Internal Medicine, Women's Health, Family Medicine, and Medical/Surgical Oncology, the [facility] has carefully reviewed the data and reached the following consensus: 1) All women should engage in shared decision-making with their providers to decide when to start and how often to screen; 2) All women should have the opportunity to start screening mammography at age 40; 3) For women ages 45-55, we recommend annual screening mammograms; 4) For women ages 55 and over, we support both the transition from an annual to a biennial interval if this aligns more with patient's values and preferences, or continuation with annual screening; 5) All women should discuss with their providers when to stop screening mammograms. Twister Doffer: Ayde Transcribe Date/Time: Apr 16 2022 11:12A Dictated by : BERNARDO PEREZ MD This examination was interpreted and the report reviewed and electronically signed by: BERNARDO PEREZ MD on Apr 16 2022 11:38AM EST [id number] Normal [facility] SARS-CoV-2,INFLUENZA A/B NUC LEI ACID TESTon 12-15-2021 EUA DISCLAIMER Normal [facility] Comment on above: Result Comment: Infl uenza A and Influenza B negative results should be considered presumptive in samples that have a positive SARS-CoV-2 result. This test has been authorized by FDA under an EUA for use by CLIA Certified Moderate and High-Complexity laboratories and Point of Care (POC), i.e., in patient care settings operating under a CLIA Certificate of Waiver, Certificate of Compliance, or Certificate of Accreditation. This test has been authorized only for the simultaneous qualitative detection and differentiation of nucleic acid from SARS-CoV-2, influenza A virus, and influenza B virus and not for any other viruses or pathogens. This test is only authorized for the duration of the declaration that circumstances exist justifying the authorization of emergency use of in vitro diagnostic tests for the detection and/or diagnosis of COVID-19, unless the authorization is terminated or revoked sooner. Performed at [place] [address] FLU A by PCR Negative [facility] FLU B by PCR Negative [facility] SARS-CoV-2 (COVID-19) RNA ANGELICA+probe Ql (Unsp spec) Abnormal NEG [facility] Comment on above: Result Comment: Posi tive for COVID-19 CRITICAL VALUE-PHYSICIAN MUST BE NOTIFIED RESULTS PHONED TO: Carmel Tinajero RN at 0928 VERBAL RESULT VERIFICATION RECEIVED EUA DISCLAIMER [facility] Comment on above: Result Comment: Infl uenza A and Influenza B negative results should be considered presumptive in samples that have a positive SARS-CoV-2 result. This test has been authorized by FDA under an EUA for use by CLIA Certified Moderate and High-Complexity laboratories and Point of Care (POC), i.e., in patient care settings operating under a CLIA Certificate of Waiver, Certificate of Compliance, or Certificate of Accreditation. This test has been authorized only for the simultaneous qualitative detection and differentiation of nucleic acid from SARS-CoV-2, influenza A virus, and influenza B virus and not for any other viruses or pathogens. This test is only authorized for the duration of the declaration that circumstances exist justifying the authorization of emergency use of in vitro diagnostic tests for the detection and/or diagnosis of COVID-19, unless the authorization is terminated or revoked sooner. Performed at [place] [address] FLU A by PCR Negative [facility] FLU B by PCR Negative [facility] SARS-CoV-2 (COVID-19) RNA ANGELICA+probe Ql (Unsp spec) Abnormal [facility] Comment on above: Result Comment: Posi tive for COVID-19 CRTV RESULTS PHONED TO: Jenny Fitzpatrick RN at 0854 VERBAL RESULT VERIFICATION RECEIVED CBC with Diffon 12-09-2021 AB IMMATURE NEUT 0.02 K/UL Normal 0.0-0.1 [facility] ABS BASO 0.02 K/UL Normal 0.00-0.22 [facility] ABS EOS 0.32 K/UL Normal 0-0.45 [facility] ABS NEUTROPHILS 4.34 K/UL Normal 1.8-7.7 [facility] ABS.NEUT.CALCULATED 4.34 K/UL Normal [facility] Comment on above: Result Comment: Perf ormed at [facility] [address] [facility] [address] Basophils/100 WBC (Bld) 0.30 % Normal 0-1 [facility] DIFF TYPE AUTO DIFF Normal [facility] Eosinophils/100 WBC (Bld) 5.10 % High 0-3 [facility] Erythrocyte distribution width (RBC) [Ratio] 12.7 % Normal 11.7-15.0 [facility] Hematocrit (Bld) [Volume fraction] 41.9 % Normal 36-44 [facility] Hemoglobin (Bld) [Mass/Vol] 13.5 g/dL Normal 12.0-15.0 [facility] Lymphocytes (Bld) [#/Vol] 1.15 10*3/uL Low 1.2-3.2 [facility] Lymphocytes/100 WBC (Bld) 18.30 % Low 20-40 [facility] MCH (RBC) [Entitic mass] 31.0 pg Normal 26-34 [facility] MCHC 32.2 % Normal 31-37 [facility] MCV (RBC) [Entitic vol] 96.3 fL Normal 80-100 [facility] MEAN PLT VOL 9.0 CU Normal 7.0-12.6 [facility] Monocytes (Bld) [#/Vol] 0.44 10*3/uL Normal 0-0.8 [facility] Monocytes/100 WBC (Bld) 7.00 % Normal 0-8 [facility] Neutrophils/100 WBC (Bld) 0.30 % Normal 0.0-1.0 [facility] Neutrophils/100 WBC (Bld) 69.00 % Normal 50-70 [facility] Platelets (Bld) [#/Vol] 240 10*3/uL Normal 150-450 [facility] RBC (Bld) [#/Vol] 4.35 10*6/uL Normal 4.0-4.9 [facility] RDW-SD 45.4 FL Normal 37.0-54.0 [facility] WBC (Bld) [#/Vol] 6.3 10*3/uL Normal 4.5-11.0 [facility] COMPREHENSIVE METABOLIC PANE Juanito 12-09-2021 Albumin [Mass/Vol] 4.2 g/dL Normal 3.5-5.0 [facility] Albumin/Globulin [Mass ratio] 1.6 {ratio} Normal 1.5-3.0 [facility] ALP [Catalytic activity/Vol] 80 U/L Normal 35-125 [facility] ALT [Catalytic activity/Vol] 26 U/L Normal 5-40 [facility] Anion gap [Moles/Vol] 7 mmol/L Normal 0-19 [facility] AST [Catalytic activity/Vol] 32 U/L Normal 5-40 [facility] Bilirubin [Mass/Vol] 0.3 mg/dL Normal 0.1-1.2 [facility] Calcium [Mass/Vol] 9.4 mg/dL Normal 8.5-10.4 [facility] Chloride [Moles/Vol] 103 mmol/L Normal 97-107 [facility] CO2 [Moles/Vol] 31 mmol/L Normal 24-31 [facility] Creatinine [Mass/Vol] 1.2 mg/dL Normal 0.4-1.6 [facility] ESTIMATED GFR 48 mL/min/1.73 m2 Normal [facility] Comment on above: Result Comment: CALCULATIONS OF ESTIMATED GFR ARE PERFORMED USING THE 2020 CKD-EPI STUDY REFIT EQUATION WITHOUT THE RACE VARIABLE FOR THE IDMS-TRACEABLE CREATININE METHODS. https://jasn.asnjournals.org/content//ASN.6556222 [address] [facility] [address] [facility] [address] Globulin (S) [Mass/Vol] 2.6 g/dL Normal 1.9-3.7 [facility] Glucose [Mass/Vol] 87 mg/dL Normal 65-99 [facility] Potassium [Moles/Vol] 4.8 mmol/L Normal 3.4-5.1 [facility] Protein [Mass/Vol] 6.8 g/dL Normal 5.9-7.9 [facility] Sodium [Moles/Vol] 141 mmol/L Normal 133-145 [facility] Urea nitrogen [Mass/Vol] 13 mg/dL Normal 8-25 [facility] Urea nitrogen/Creatinine [Mass ratio] 10.8 mg/mg Normal 8-21 [facility] UA-REFLEX TO CULTUREon 12-09 EPI Normal [facility] Comment on above: Result Comment: Occa sional SQUAMOUS Performed at [facility] [address] [facility] [address] RBC NONE SEEN Normal 0-3 [facility] Urinalysis dipstick W Reflex Microscopic panel (U) MANUAL MICROSCOPIC URINES Normal [facility] WBC NONE SEEN Normal 0-3 [facility] Bacteria identified Cx Nom (U) CULTURE NOT INDICATED Normal [facility] Comment on above: Result Comment: CULT URE NOT INDICATED Performed at [facility] [id number] [place] [id number] BILI Negative Normal NEG [facility] Clarity (U) CLEAR Normal [facility] Color (U) YELLOW Normal [facility] GLUC Negative Normal NEG [facility] Hemoglobin Ql (U) Negative Normal NEG [facility] KET Negative Normal NEG [facility] LEUK Negative Normal NEG [facility] NIT Negative Normal NEG [facility] pH (U) 8.0 [pH] Normal 4.6-8.0 [facility] PROT Negative Normal NEG [facility] SP GRAV,URINE 1.015 Normal 1.005-1.030 [facility] URO 0.2 MG/DL Normal 0-1.0 [facility] CREATININE, BLOOD (POC)on Creatinine [Mass/Vol] 1.20 mg/dL 0.7 - 1.4 mg/dL [facility] eGFR (POCT) 48 mL/min/1.73 m2 [facility] CTA ABD/PEL W IVCONon 2021 [facility] MRI Shoulder w/o Righton MRI Shoulder w/o Right HISTORY: Frozen shoulder. Right shoulder pain. COMPARISON: TECHNIQUE: Multiplanar multisequence MRI was performed of the right shoulder without contrast. FINDINGS: Mild degenerative changes of the acromioclavicular joint with undersurface osteophyte formation. The acromion is curved. Coracoclavicular ligament is intact. Trace subacromial/subdeltoid bursal fluid. Low-grade articular surface tear of distal mid and posterior fibers of the supraspinatus tendon at the footprint measuring approximately 5 mm in AP dimension superimposed on mild tendinosis. Mild infraspinatus and subscapularis tendinosis. Teres minor tendon is intact. Mild nonspecific edema within the supraspinatus and infraspinatus muscles possibly representing muscle strain. No atrophy or fatty infiltration of the rotator cuff musculature. Split tear of extra-articular long head biceps tendon. The biceps tendon resides within the bicipital groove. Advanced glenohumeral osteoarthritis including full-thickness cartilage loss of the glenoid and humeral head, marginal osteophyte formation of the humeral head, and remodeling of the glenoid. Diffuse labral degeneration. Small glenohumeral joint effusion with multiple small loose bodies. IMPRESSION: Advanced glenohumeral osteoarthritis. Low-grade articular surface tear of distal mid and posterior fibers of the supraspinatus tendon at the footprint measuring approximately 5 mm in AP dimension superimposed on mild tendinosis. Mild infraspinatus and subscapularis tendinosis. Split tear of long head biceps tendon. Report reported and signed by Gonsalo Alvarez on 10/21/2021 1010 Normal [facility] Complete Blood Count with Au to Diffon 04-21-2021 Basophils (Bld) [#/Vol] 0.03 10*3/uL Normal 0.00-0.20 [facility] Specialist Comment on above: Performed By: #### C BCAD, VITD, LIPD, CMP #### [facility] [address], [place] [id number] Basophils/100 WBC (Bld) 0.5 % Normal [facility] Specialist Comment on above: Performed By: #### C BCAD, VITD, LIPD, CMP #### [facility] [address], [place] [id number] Eosinophils (Bld) [#/Vol] 0.27 10*3/uL Normal 0.02-0.50 [facility] Specialist Comment on above: Performed By: #### C BCAD, VITD, LIPD, CMP #### [facility] [address], [place] [id number] Eosinophils/100 WBC (Bld) 4.6 % Normal [facility] Comment on above: Performed By: #### C BCAD, VITD, LIPD, CMP #### [facility] [address], [place] [id number] Erythrocyte distribution width (RBC) [Ratio] 13.1 % Normal 11.0-15.0 [facility] Specialist Comment on above: Performed By: #### C BCAD, VITD, LIPD, CMP #### [facility] [address], [place] [id number] Hematocrit (Bld) [Volume fraction] 43.9 % Normal 35.0-47.0 [facility] Specialist Comment on above: Performed By: #### C BCAD, VITD, LIPD, CMP #### [facility] [address], [place] [id number] Hemoglobin (Bld) [Mass/Vol] 14.0 g/dL Normal 11.6-15.5 [facility] Specialist Comment on above: Performed By: #### C BCAD, VITD, LIPD, CMP #### [facility] [address], [place] [id number] Lymphocytes (Bld) [#/Vol] 1.9 10*3/uL Normal 0.9-3.9 [facility] Chronic Care Nurse Comment on above: Performed By: #### C BCAD, VITD, LIPD, CMP #### [facility] [address], [place] [id number] Lymphocytes/100 WBC (Bld) 31.8 % Normal [facility] Care Nurse Comment on above: Performed By: #### C BCAD, VITD, LIPD, CMP #### [facility] [address], [place] [id number] MCH (RBC) [Entitic mass] 30.0 pg Normal 27.0-33.0 [facility] Nurse Comment on above: Performed By: #### C BCAD, VITD, LIPD, CMP #### [facility] [address], [place] [id number] MCHC (RBC) [Mass/Vol] 31.9 g/dL Low 32.0-36.0 [facility] Nurse Comment on above: Performed By: #### C BCAD, VITD, LIPD, CMP #### [facility] [address], [place] [id number] MCV (RBC) [Entitic vol] 94 fL Normal 80-100 [facility] Nurse Comment on above: Performed By: #### C BCAD, VITD, LIPD, CMP #### [facility] [address], [place] [id number] Monocytes (Bld) [#/Vol] 0.5 10*3/uL Normal 0.2-0.9 [facility] Comment on above: Performed By: #### C BCAD, VITD, LIPD, CMP #### [facility] [address], [place] [id number] Monocytes/100 WBC (Bld) 7.9 % Normal [facility] Comment on above: Performed By: #### C BCAD, VITD, LIPD, CMP #### [facility] [address], [place] [id number] Neutrophils (Bld) [#/Vol] 3.2 10*3/uL Normal 1.5-7.8 [facility] Comment on above: Performed By: #### C BCAD, VITD, LIPD, CMP #### [facility] [address], [place] [id number] Neutrophils/100 WBC (Bld) 54.9 % Normal [facility] Comment on above: Performed By: #### C BCAD, VITD, LIPD, CMP #### [facility] [address], [place] [id number] Platelet mean volume (Bld) [Entitic vol] 9.90 fL Normal 7.50-12.50 [facility] Comment on above: Performed By: #### C BCAD, VITD, LIPD, CMP #### [facility] [address], [place] [id number] Platelets (Bld) [#/Vol] 255 10*3/uL Normal 140-400 [facility] Specialist Comment on above: Performed By: #### C BCAD, VITD, LIPD, CMP #### [facility] [address], [place] [id number] RBC (Bld) [#/Vol] 4.67 10*6/uL Normal 3.90-5.20 [facility] Comment on above: Performed By: #### C BCAD, VITD, LIPD, CMP #### [facility] [address], [place] [id number] RDW-SD 44.8 fL Normal 37.0-50.0 [facility] Nurse Comment on above: Performed By: #### C BCAD, VITD, LIPD, CMP #### [facility] [address], [place] [id number] WBC (Bld) [#/Vol] 5.8 10*3/uL Normal 3.8-11.0 [facility] [place] [facility] Comment on above: Performed By: #### C BCAD, VITD, LIPD, CMP #### [facility] [address], [place] [id number] Comprehensive Metabolic Pane juanito 04-21-2021 Albumin [Mass/Vol] 4.5 g/dL Normal 3.6-5.1 [facility] [place] [facility] Comment on above: Performed By: #### C BCAD, VITD, LIPD, CMP #### [facility] [address], [place] [id number] Albumin/Globulin [Mass ratio] 2.3 {ratio} Normal 1.0-2.5 [facility] Nurse Comment on above: Performed By: #### C BCAD, VITD, LIPD, CMP #### [facility] [address], [place] [id number] ALP [Catalytic activity/Vol] 96 U/L Normal 35-119 [facility] Nurse Comment on above: Performed By: #### C BCAD, VITD, LIPD, CMP #### [facility] [address], [place] [id number] ALT [Catalytic activity/Vol] 24 U/L Normal 6-33 [facility] Nurse Comment on above: Result Comment: 04/15 Female reference range changed. Performed By: #### C BCAD, VITD, LIPD, CMP #### [facility] [address], [place] [id number] Anion gap [Moles/Vol] 18 mmol/L Normal 12-20 [facility] Nurse Comment on above: Result Comment: Effe ctive 05/21/2019 reference range changed. Performed By: #### C BCAD, VITD, LIPD, CMP #### [facility] [address] [facility] [place] [place] [id number] AST [Catalytic activity/Vol] 30 U/L Normal 9-34 [facility] Comment on above: Performed By: #### C BCAD, VITD, LIPD, CMP #### [facility] [address], [place] [id number] Bilirubin [Mass/Vol] 0.51 mg/dL Normal 0.30-1.20 [facility] Comment on above: Performed By: #### C BCAD, VITD, LIPD, CMP #### [facility] [address], [place] [id number] BUN/CREA 21 Ratio Normal 6-22 [facility] Comment on above: Performed By: #### C BCAD, VITD, LIPD, CMP #### [facility] [address], [place] [id number] Calcium [Mass/Vol] 9.8 mg/dL Normal 8.6-10.2 [facility] Comment on above: Performed By: #### C BCAD, VITD, LIPD, CMP #### [facility] [address], [place] [id number] Chloride [Moles/Vol] 103 mmol/L Normal 98-107 [facility] Comment on above: Performed By: #### C BCAD, VITD, LIPD, CMP #### [facility] [address], [place] [id number] CO2 [Moles/Vol] 26 mmol/L Normal 20-31 [facility] Comment on above: Performed By: #### C BCAD, VITD, LIPD, CMP #### [facility] [address], [place] [id number] Creatinine [Mass/Vol] 1.1 mg/dL Normal 0.6-1.4 [facility] Specialist Comment on above: Performed By: #### C BCAD, VITD, LIPD, CMP #### [facility] [address], [place] [id number] eGFRAA 58 mL/min/1.73m2 Low >60 [facility] Specialist Comment on above: Performed By: #### C BCAD, VITD, LIPD, CMP #### [facility] [address], [place] [id number] eGFRNAA 48 mL/min/1.73m2 Low >60 [facility] Nurse Comment on above: Performed By: #### C BCAD, VITD, LIPD, CMP #### [facility] [address], [place] [id number] Globulin (S) [Mass/Vol] 2.0 g/dL Normal 1.9-3.7 [facility] Nurse Comment on above: Performed By: #### C BCAD, VITD, LIPD, CMP #### [facility] [address], [place] [id number] Glucose [Mass/Vol] 91 mg/dL Normal 65-99 [facility] [place] [facility] Nurse Comment on above: Result Comment: For FASTING Glucose --- ADA reference ranges: Normal 65-99 mg/dl Prediabetes 100-125 Diabetes >/= 126 Performed By: #### C BCAD, VITD, LIPD, CMP #### [facility] [address], [place] [id number] Potassium [Moles/Vol] 4.5 mmol/L Normal 3.5-5.5 [facility] Nurse Comment on above: Performed By: #### C BCAD, VITD, LIPD, CMP #### [facility] [address], [place] [id number] Protein [Mass/Vol] 6.5 g/dL Normal 6.1-8.1 [facility] rn [place] [facility] Nurse Comment on above: Performed By: #### C BCAD, VITD, LIPD, CMP #### [facility] [address], [place] [id number] Sodium [Moles/Vol] 142 mmol/L Normal 135-146 [facility] [place] [facility] Nurse Comment on above: Performed By: #### C BCAD, VITD, LIPD, CMP #### [facility] [address], [place] [id number] Urea nitrogen [Mass/Vol] 24 mg/dL Normal 7-25 [facility] Nurse Comment on above: Performed By: #### C BCAD, VITD, LIPD, CMP #### [facility] [address], [place] [id number] Lipid Panelon 04-21-2021 Cholesterol [Mass/Vol] 182 mg/dL Normal 125-200 [facility] Specialist Comment on above: Result Comment: Low risk < 200mg/dL Borderline risk 201-239 mg/dl High risk > or equal to 240 Performed By: #### C BCAD, VITD, LIPD, CMP #### [facility] [address], [place] [id number] Cholesterol in HDL [Mass/Vol] 62 mg/dL Normal >40 [facility] Specialist Comment on above: Result Comment: High Cardiovascular Risk HDL <40 mg/dL Low Cardiovascular Risk HDL > or equal to 60 mg/dl Performed By: #### C BCAD, VITD, LIPD, CMP #### [facility] [address], [place] [id number] Cholesterol in LDL [Mass/Vol] 98 mg/dL Normal [facility] Specialist Comment on above: Result Comment: LDL ATP III CLASSIFICATION LDL less than 100 mg/dl Optimal LDL 100-129 mg/dl Near or above optimal LDL 130-159 Borderline high LDL 160-189 High LDL greater than 189 mg/dl Very High Performed By: #### C BCAD, VITD, LIPD, CMP #### [facility] [address], [place] [id number] Cholesterol in VLDL [Mass/Vol] 22 mg/dL Normal [facility] Specialist Comment on above: Performed By: #### C BCAD, VITD, LIPD, CMP #### [facility] [address], [place] [id number] Cholesterol.total/Ch olesterol in HDL [Mass ratio] 3 {ratio} Normal [facility] Specialist Comment on above: Performed By: #### C BCAD, VITD, LIPD, CMP #### [facility] [address], [place] [id number] Triglyceride [Mass/Vol] 108 mg/dL Normal 30-150 [facility] Nurse Comment on above: Result Comment: TRIG ATPIII CLASSIFICATIONS TRIG less than 150 mg/dl Normal TRIG 150-199 mg/dl Borderline High TRIG 200-500 mg/dl High TRIG greather than 500 mg/dl Very High Performed By: #### C BCAD, VITD, LIPD, CMP #### [facility] [address], [place] [id number] Microalbumin (with Creat)on 04-21-2021 mALB <1.2 Low [facility] Specialist Comment on above: Result Comment: Unab le to calculate mALB/Crea ratio, mALB is <1.2 mg/dL mALB reference range not established. Performed By: #### m ALBC #### [facility] [address], [place] [id number] UCREA 183 mg/dL Normal 28-217 [facility] Specialist Comment on above: Performed By: #### m ALBC #### [facility] [address], [place] [id number] Q - URINALYSIS,COMPLETEon Appearance (U) CLEAR Normal CLEAR [facility] Specialist Comment on above: Order Comment: [facility] performed at: [facility], [facility], [address] , [address] [place] [address], [address] [place] [address], Process Lead: Clay Sparrow MD [facility] Collection Date/Time: [facility] Results Received Date/Time: [facility] Reported Date/Time: Performed By: #### 3 4F #### [facility] [address] [place] [address] BACTERIA NONE SEEN Normal NONE SEEN [facility] Nurse Comment on above: Order Comment: [facility] performed at: [facility], [facility], [address], [address] [place] [address], [address] [place] [address], Process Lead: Clay Sparrow MD [facility] Date/Time: [facility] Results Received Date/Time: [facility] Reported Date/Time: Performed By: #### 3 4F #### [facility] [address] [place] [address] Bilirubin Ql (U) Negative Normal NEGATIVE [facility] Specialist Comment on above: Order Comment: [facility] performed at: [facility], [facility], [address], [address] [place] [address], [address] [place] [address], Process Lead: Clay Sparrow MD [facility] Date/Time: [facility] Results Received Date/Time: [facility] Reported Date/Time: Performed By: #### 3 4F #### [facility] [address] [place] [address] Color (U) YELLOW Normal YELLOW [facility] Nurse Comment on above: Order Comment: [facility] performed at: [facility], [facility], [address] , [address] [place] [address], [address] [place] [address], Process Lead: Clay Sparrow MD [facility] Date/Time: [facility] Results Received Date/Time: [facility] Reported Date/Time: Performed By: #### 3 4F #### [facility] [address] [place] [address] Glucose Ql (U) Negative Normal NEGATIVE [facility] Chronic Care Nurse Comment on above: Order Comment: [facility] performed at: [facility], [facility], [address] , [address] [place] [address], [address] [place] [address], Process Lead: Clay Sparrow MD [facility] Date/Time: [facility] Results Received Date/Time: [facility] Reported Date/Time: Performed By: #### 3 4F #### [facility] [address] [place] [address] HYALINE CAST NONE SEEN Normal NONE SEEN [facility] Chronic Care Nurse Comment on above: Order Comment: [facility] performed at: [facility], [facility], [address] , [address] [place] [address], [address] [place] [address], Process Lead: Clay Sparrow MD [facility] Date/Time: [facility] Results Received Date/Time: [facility] Reported Date/Time: Performed By: #### 3 4F #### [facility] [address] [place] [address] Ketones Ql (U) Negative Normal NEGATIVE [facility] Chronic Care Nurse Comment on above: Order Comment: [facility] performed at: [facility], [facility], [address] , [address] [place] [address], [address] [place] [address], Process Lead: Clay Sparrow MD [facility] Date/Time: [facility] Results Received Date/Time: [facility] Reported Date/Time: Performed By: #### 3 4F #### [facility] [address] [place] [address] Leukocyte esterase Test strip Ql (U) TRACE Abnormal NEGATIVE [facility] Nurse Comment on above: Order Comment: [facility] performed at: [facility], [facility], [address] , [address] [place] [address], [address] [place] [address], Process Lead: Clay Sparrow MD [facility] Date/Time: [facility] Results Received Date/Time: [facility] Reported Date/Time: Performed By: #### 3 4F #### [facility] [address] [place] [address] Nitrite Ql (U) Negative Normal NEGATIVE [facility] Chronic Care Nurse Comment on above: Order Comment: [facility] performed at: [facility], [facility], [address] , [address] [place] [address], [address] [place] [address], Process Lead: Clay Sparrow MD [facility] Date/Time: [facility] Results Received Date/Time: [facility] Reported Date/Time: Performed By: #### 3 4F #### [facility] [address] [place] [address] OCCULT BLOOD Negative Normal NEGATIVE [facility] Chronic Care Nurse Comment on above: Order Comment: [facility] performed at: [facility], [facility], [address] , [address] [place] [address], [address] [place] [address], Process Lead: Clay Sparrow MD [facility] Date/Time: [facility] Results Received Date/Time: [facility] Reported Date/Time: Performed By: #### 3 4F #### [facility] [address] [place] [address] pH (U) 6.5 [pH] Normal 5.0-8.0 [facility] Nurse Comment on above: Order Comment: [facility] performed at: [facility], [facility], [address] [place] [address], [address] [place] [address], [address] [place] [address], Process Lead: Clay Sparrow MD [facility] Date/Time: [facility] Results Received Date/Time: [facility] Reported Date/Time: Performed By: #### 3 4F #### [facility] [address] [place] [address] Protein Ql (U) Negative Normal NEGATIVE [facility] Specialist Comment on above: Order Comment: [facility] performed at: [facility], [facility], [address] [place] [address], [address] [place] [address], [address] [place] [address], Process Lead: Clay Sparrow MD [facility] Date/Time: [facility] Results Received Date/Time: [facility] Reported Date/Time: Performed By: #### 3 4F #### [facility] [address] [place] [address] RBC NONE SEEN Normal < OR = 2 [facility] Chronic Care Nurse Comment on above: Order Comment: [facility] performed at: [facility], [facility], [address] [place] [address], [address] [place] [address], [address] [place] [address], Process Lead: Clay Sparrow MD [facility] Date/Time: [facility] Results Received Date/Time: [facility] Reported Date/Time: Performed By: #### 3 4F #### [facility] [address] [place] [address] Specific gravity (U) [Rel density] 1.025 Normal 1.001-1.035 [facility] Care Nurse Comment on above: Order Comment: [facility] performed at: [facility], [facility], [address] , [address] [place] [address], [address] [place] [address], Process Lead: Clay Sparrow MD [facility] Date/Time: [facility] Results Received Date/Time: [facility] Reported Date/Time: Performed By: #### 3 4F #### [facility] [address] [facility] [place] [address] SQUAMOUS EPITHELIAL CELLS 0-5 Normal < OR = 5 [facility] Nurse Comment on above: Order Comment: [facility] performed at: [facility], [facility], [address] [facility], [address] [place] [address], [address] [place] [address], Process Lead: Clay Sparrow MD [facility] Date/Time: [facility] Results Received Date/Time: [facility] Reported Date/Time: Performed By: #### 3 4F #### [facility] [address] [place] [address] WBC NONE SEEN Normal < OR = 5 [facility] Nurse Comment on above: Order Comment: [facility] performed at: [facility], [facility], [address] [facility], [address] [place] [address], [address] [place] [address], Process Lead: Clay Sparrow MD [facility] Date/Time: [facility] Results Received Date/Time: [facility] Reported Date/Time: Performed By: #### 3 4F #### [facility] [address] [place] [address] Vitamin D 25-OHon 04-21-2021 VIT D 25 OH 52 ng/ml Normal >29 [facility] Nurse Comment on above: Result Comment: Ashley min D Status Deficiency <20 ng/mL Insufficiency 20-29 ng/mL Optimal 30-100 ng/mL Possible Toxicity >=150 ng/mL Performed By: #### C BCAD, VITD, LIPD, CMP #### [facility] [address] [facility] [place], [place] [id number] XR KNEE GENERAL 4V AP BOTH/P A BOTH/LAT/MERC LTon 12-04-2020 [facility] XR KNEE POST OP 3V AP/LAT/ME RCHANT LTon 04-01-2020 [facility] XR KNEE GENERAL 4V AP BOTH/P A BOTH/LAT/MERC LTon 12-20-2019 [facility] Basic Metabolic Panlon 12-05 Anion gap [Moles/Vol] 8 mmol/L Low 9-18 [facility] Calcium [Mass/Vol] 6.8 mg/dL Low 8.5-10.2 [facility] Chloride [Moles/Vol] 108 mmol/L High 97-105 [facility] CO2 [Moles/Vol] 20 mmol/L Low 22-30 [facility] Creatinine [Mass/Vol] 1.07 mg/dL High 0.58-0.96 [facility] eGFR- Amer. >60 Normal [facility] GFR/1.73 sq M predicted among non-blacks MDRD (S/P/Bld) [Vol rate/Area] 51 . Normal [facility] Comment on above: Result Comment: eGFR (Estimated GFR) Units of measure: mL/min/1.73 meters squared eGFR is derived from the reexpressed MDRD Study equation using the following parameters: serum creatinine, age, gender and race. The creatinine assay has been calibrated to be traceable to IDMS. An eGFR <60 mL/min/1.73m2 for >3 months is consistent with chronic kidney disease. Refer to KDOQI guidelines for clinical interpretation. In patients with unstable renal function, e.g. those with acute kidney injury, the eGFR may not accurately reflect actual GFR. Glucose [Mass/Vol] 145 mg/dL High 74-99 [facility] Comment on above: Result Comment: The [place] [employer] (ADA) provides guidance for cutoff values for fasting glucose and random glucose. The ADA defines fasting as no caloric intake for at least 8 hours. Fasting plasma glucose results between 100 to 125 mg/dL indicate increased risk for diabetes (prediabetes). Fasting plasma glucose results greater than or equal to 126 mg/dL meet the criteria for diagnosis of diabetes. In the absence of unequivocal hyperglycemia, results should be confirmed by repeat testing. In a patient with classic symptoms of hyperglycemia or hyperglycemic crisis, random plasma glucose results greater than or equal to 200 mg/dL meet the criteria for diagnosis of diabetes. Reference: Standards of Medical Care in Diabetes 2016, [place] [employer]. Diabetes Care. 2016.39(Suppl 1). Potassium [Moles/Vol] 3.3 mmol/L Low 3.7-5.1 [facility] Sodium [Moles/Vol] 136 mmol/L Normal 136-[address] [facility] ospital Urea nitrogen [Mass/Vol] 21 mg/dL Normal 7-21 [facility] CBCon 12-06-2019 Absolute nRBC <0.01 [facility]0.01 [facility] distribution width (RBC) [Ratio] 12.5 % Normal 11.5-15.0 [facility] Hematocrit (Bld) [Volume fraction] 30.3 % Low 36.0-46.0 [facility] Hemoglobin (Bld) [Mass/Vol] 9.5 g/dL Low 11.5-15.5 [facility] MCH (RBC) [Entitic mass] 30.6 pG Normal 26.0-34.0 [facility] MCHC (RBC) [Mass/Vol] 31.4 g/dL Normal 30.5-36.0 [facility] MCV (RBC) [Entitic vol] 97.7 fL Normal 80.0-100.0 [facility] Platelet mean volume (Bld) [Entitic vol] 10.2 fL Normal 9.0-12.7 [facility] Platelets (Bld) [#/Vol] 188 10*3/uL Normal 150-400 [facility] RBC (Bld) [#/Vol] 3.10 10*6/uL Low 3.90-5.20 [facility] WBC (Bld) [#/Vol] 9.31 10*3/uL Normal 3.70-11.00 [facility] NURSING PROGon 12-06-2019 NURSING PROG HNO ID: [id number] Author: Tae (Rn) LOAN Alvarenga Service: Nursing Author Type: Registered Nurse Type: Nursing Progress Note Filed: 12/06/2019 4:24 PM Note Text: Nursing Progress Note Patient Name: Gilda Sorto Patient Location: / Daily Note: 0745: awake and sitting up in bed. a/o x3 and denies chest pain, SOB, n/v. +pedal pulse, + flexion/dorsiflexion, L knee dressing C/D/I, denies calf tenderness. Educated on plan of care: PT, pain medication regimen/side effects, incentive spirometer, exercises, SCDs, safety and verbalized understanding. 1047: Pt states she became dizzy after performing curb step w/ PT, pt upright in chair. States sx improved, VSS. Encouraged to increase PO fluids, will con't to monitor. 1152: Msg sent to BUDDY Orr regarding need for BMP order for pt to have drawn outpatient. 1550: DC instructions given to patient. Discussed: dressing/incision care, ISELA hose, safety, follow-up appointment and BMP within 24-48 hours at [facility] lab. Verbalized understanding - all questions answered. This note was completed by: Tae Alvarenga RN [facility] PLAN OF CAREon 12-06-2019 PLAN OF CARE HNO ID: [id number] Author: Carlie Beltre (Bocada) Service: ? Author Type: ? Type: Plan of Care Filed: 12/06/2019 3:10 PM Note Text: The following medications were delivered to the patient: Medication List START taking these medications aspirin, enteric coated 325 mg EC tablet Commonly known as: ASPIRIN, ENTERIC COATED Take 1 tablet by mouth twice daily. docusate sodium 100 mg capsule Commonly known as: COLACE Take 1 capsule by mouth twice daily as needed for Constipation. X oxyCODONE IR 5 mg immediate release tablet Commonly known as: ROXICODONE Take 1-2 tablets by mouth every 4 hours as needed for up to 7 days. CONTINUE taking these medications ALPRAZolam 0.25 mg tablet Commonly known as: XANAX citalopram hydrobromide 10 mg tablet Commonly known as: CeleXA L-LYSINE 500 mg Tab Generic drug: lysine takes daily OCUVITE Tab Generic drug: vitamin A-ascorbic acid-vitamin E-minerals takes one per day OTC NUTRITIONAL SUPPLEMENT triamterene-hydrochloro thiazide 37.5-25 mg per capsule zolpidem 5 mg tablet Commonly known as: AMBIEN You might also be taking other medications not listed above. If you have questions about any of your other medications, talk to the person who prescribed them or your Primary Care Provider. STOP taking these medications diclofenac (EC) 75 mg EC tablet Commonly known as: VOLTAREN mupirocin 2 % ointment Commonly known as: BACTROBAN nitrofurantoin monohydrate and macrocrystal 100 mg capsule Commonly known as: MACROBID Carlie Beltre (Founder Chairman And Chief Creative Officer) PAGER: [email or web address] December 06, 2019 3:10 PM [facility] PROGRESSon 12-06-2019 PROGRESS HNO ID: [id number] Author: Taz Dean Service: Orthopaedic Surgery Author Type: Physician Type: Progress Notes Filed: 12/06/2019 9:52 AM Note Text: ORTHOPAEDIC POSTOP PROGRESS NOTE SERVICE DATE: 12/06/2019 SERVICE TIME: 9:46 AM Subjective Patient states that they are comfortable Denies excessive knee(s) pain. Denies incisional pain. No OQUENDO/F/C/N/V/CP/SOB Objective VITAL SIGNS: BP 115/57 Pulse 79 Temp 36.4 ?C (97.5 ?F) (Oral) Resp 16 Ht 160 cm (5' 3 ) Wt 88.5 kg (195 lb 1.7 oz) SpO2 95% BMI 34.56 kg/m? INTAKE AND OUTPUT: Intake/Output Summary (Last 24 hours) at 12/06/2019 0946 Last data filed at 12/06/2019 0920 Gross per 24 hour Intake 3610 ml Output 1800 ml Net 1810 ml PHYSICAL EXAMINATION: Left Lower Extremity: Dorsalis pedis pulses palpable. Posterior tibial pulses palpable. Dorsi flexion 5/5. Plantar flexion 5/5. Extensor hallucis extension: 5/5. Sensory intact to light touch L1-S1. Dressing clean, dry and intact. Surgical site no drainage and skin edges well approximated. Calves are supple and nontender. Homans is negative Problem Review and Assessment: Patient monitored, no new events overnight. LABS: Recent Labs 12/06/19 0428 HB 9.5* HCT 30.3* DATA: Diagnostic tests reviewed for today's visit: Most recent labs Assessment/Plan S/P Procedure(s) (LRB): ARTHROPLASTY REPLACE JOINT TOTAL KNEE (Left) on 12/05/2019 Hypokalemia Post op acute blood loss anemia---Stable POSTOP PLAN: K supplement today Physical Therapy to increase activity DVT prophylaxis: Intermittent pneumatic compression device (IPCD) and ASA BID for 6 weeks Pain control Case Management for discharge planning--OK to D/C to home today --Check BMP in 24-48 hours to make sure normalizes. F/U with Dr Dean in 2 weeks ACTIVE PROBLEM LIST Unspecified Hypertrophic and Atrophic Condition of Skin Dysfunction of Eustachian Tube Sensorineural Hearing Loss, Unspecified Other Plastic Surgery for Unacceptable Cosmetic Appearance Malignant Neoplasm of Breast (Female), Unspecified Site Wrist Arthritis Renal Artery Aneurysm (Hcc) Hypertension Disposition and Follow-Up Varicose Veins of Leg With Edema Varicose Veins of Leg With Pain Spider Veins of Both Lower Extremities Acute Medial Meniscus Tear of Left Knee Primary Osteoarthritis of Left Knee Breast Asymmetry Between [place] Breast and Reconstructed Breast S/P Partial Mastectomy, Right History of Breast Cancer Mass of Left Knee Tear of Lateral Meniscus of Left Knee Complex Tear of Lateral Meniscus of Left Knee As Current Injury Medication and Non-Pharmacologic VTE Prophylaxis/Anticoagula nts 12/05/19 1300 pneumatic compression stockings ([place]) 12/05/19 1300 graduated compression stockings ([place] VTE Prophylaxis: VTE prophylaxis appropriate POST OPERATIVE COMPLICATIONS: Complicated by: uneventful/none SIGNATURE: Taz Dean DO PATIENT NAME: Gilda Sorto DATE: December 06, 2019 TIME: 9:46 AM PAGER/CONTACT #: ANNIE ETX#[phone] [facility] THERAPY [facility] 12-06-2019 THERAPY NT HNO ID: [id number] Author: Jessica NavasOtElayne Montes Service: ? Author Type: Occupational Therapist Type: Therapy (PT/OT/Speech/Resp) Filed: 12/06/2019 3:16 PM Note Text: Occupational Therapy Evaluation SERVICE DATE: 12/06/2019 SERVICE TIME: 1423 to 1500 ROOM: [place] [address] Recommended Discharge Disposition: Home Recommended Discharge Disposition Comments: Pt has supportive who is able and willing to assist with pt needs Anticipated Discharge Needs: Physical Assist at Home Physical Assist at Home for: Cleaning;Laundry;Meals; Shopping;Transportation (pt states will assist with self care if needed) Recommended Discharge Equipment: No equipment needs anticipated OT Recommendations to Nursing: To Bathroom for ADL?s /and or Toileting;OOB for meals;With assist of 1 person Equipment: Wheeled Walker OT 6 Clicks Score: 23 Precautions/Activity Restrictions: Total Knee Replacement;Weight Bearing Restrictions;Lines/Tube s/Drains;Fall Risk Extremity With Weight Bearing Restricted: Left Lower Extremity Left Lower Extremity Weight Bearing Status: WBAT ASSESSMENT: Pt. Presents with impaired balance, strength, activity tolerance, ADLs and mobility/transfers. Pt. Moving well during session. Pt. Did not require any physical assist with self care tasks or functional transfers/mobility. Pt. Will have support upon DC. Pt. Denies any homegoing concerns at this time. Instructed pt to ambulate once every hour when awake. Pt. Is safe and cleared from OT standpoint to go home, when cleared by medical. Patient Disposition at Start of Session: OOB in Chair;Call Smith in Reach Patient Disposition at End of Session: OOB in Chair;Call Smith in Reach Tolerated Full Session Occupational Therapy Problem List: Education Deficit;Impaired Self Care;Functional Mobility Impairment Patient /Caregiver Goals: Go Home Goals for Plan of Care: Lower Body Bathing with: Modified Independent Lower Body Dressing with: Modified Independent Rehab Potential: Excellent PLAN: Treatment Frequency (times per week): Discontinue Therapy Services Reasons Therapy Services Discontinued: No skilled needs Treatment Interventions: Self Care / Home Management;Functional Mobility Training Plan of Care developed with: Patient;Caregiver TREATMENT INTERVENTIONS: Therapy Diagnosis: Reduced mobility-other;Decrease d activities of daily living (ADL) Interventions Provided: Evaluation;Self Nursing Home Management (79247) $ Evaluation-Low (26974) Billed Units: 1 unit Self Nursing Home Management (79945) Treatment Minutes: 20 1 unit Skilled Intervention(s): Instructed in post-op instructions during ADLs regarding TKA Provided instruction, cuing and facilitation for lower body dressing, pt did not need AE at this time. Assistance only to don shoes including tying and is willing/able to assist Education including sequencing (with cues for technique of donning clothing onto the surgical lower extremity first and to doff last.). Educated pt. In importance of threading LB clothing while sitting down and then standing to pull up LB clothing with solid surface directly behind them (a chair or EOB for example). Also educated pt on importance of not twisting surgical leg to don/doff LB clothing. Pt verbalized understanding. Instructions and demonstration with a long handled shoe horn was used to monique/doff shoes. Instructions were given to wear shoes/slippers/socks over isela hose when ambulating to prevent slipping. Facilitated Patient with maintaining proper balance, education on upright posture and assisted Patient with weight shifting while sitting on the edge of the bed in order to increase strength and balance in preparation for ADL completion and safe toilet transfer. Instructed Patient in anterior weight shifting to increase balance, and required SBA, but no physical cues for hand positioning when completing sit to stand transfer. Instructed/facilitated and provided verbal and tactile cues for transitioning from supine/sitting to standing to allow for clothing management, personal hygiene and skin care. Patient was educated on allowing the body to become acclimated to change in positions (sit to stand) in order to increase safety and independence with task completion and to decrease risk of falling due to low BP. Instructed/facilitated, provided verbal and tactile cues for transitioning from sitting to standing to allow for clothing management, personal hygiene, skin/incision care/observation. Completed commode/toilet transfer with emphasis on safety, positioning and maintaining precautions. Provided instruction, facilitation, verbal and tactile cues as well as SBA. Educated pt. On TKA precautions, including WB status; explanation and demonstration. Pt. Verbalized understanding. Educated pt. In TKA precautions, relating to: -functional transfers (use of leg abrasive worker to assist surgical leg in/out of bed, pushing up from stable surfaces, reaching back for stable surface when sitting, and to sleep on pt.'s back) -dressing (threading surgical leg first when donning LB clothing, using AE as needed and to not cross legs when getting dressed) -self care (using recommended method when transferring into and out of tub/shower, benefit of tub or shower seat/bench w/ leg abrasive worker, importance of grab bars and not bathing alone) -toileting (sitting on elevated toilet seat, and supporting self during transfers w/ stable surface close by) -proper technique for transferring into and out of a car (sliding seat all the way back and reclining seat all the way back to increase space in order to clear the dashboard along w/ proper adherence to surgical precautions) -home management (sliding items across countertop instead of carrying items, standing directly in front of the object while holding onto stable surface when reaching for items, not picking up items from low surfaces, not carrying items while using walker, use of a walker bag and not leaving throw rugs on the floor). Explanation, demonstration and handout provided. Pt. Verbalized understanding. Total Timed Code Treatment Minutes: 20 Total Treatment Time (minutes): 35 SUBJECTIVE: Current Hospital Course: Chart reviewed; pt had L TKA on 12/05/2019 Reason for Occupational Therapy Consult: post acute placement Relevant Past Medical History: HTN, R mastectomy (no BP on R), OA Patient Report: He can help me indicating her for self care. States she has been practicing getting in and out of car and has seat set back. I put on my own (ISELA) hose today. Home Environment Patient Lives With: Spouse Assistance Available: 24 Hour Entry To Home: No Stairs Number Of Stairs To Bed/Bath: 0 Tub/Shower Type: WIS Laundry: main floor, can help Equipment Owned: Cane;Grab Bars-Shower;Wheeled Walker;Shower Bench;Wheelchair;Elevat ed Toilet Seat;Long Handled Shoe Horn;Banana Handler Prior Functional Level: Within Functional Limits Prior Functional Level Comments: IND in all ADLs. Enjoys sitting outside and quilting. Active with no AD OBJECTIVE: Cognition/Communication Deficits Responsiveness: Alert;Awake CURRENT FUNCTIONAL STATUS: Current Activities of Daily Living Assist Level Feeding Independent Grooming Independent(seated) Bathing Upper Body Independent Bathing Lower Body Stand By Assistance Dressing Upper Body Set Up Dressing Lower Body Minimal Assistance Toileting Modified Independent Instrumental Activities of Daily Living Assist Level Meal/Beverage Prep Light Cleaning Laundry Medication Management with Strategies Functional Mobility Assist Level Rolling Supine to Sit Sit to Supine Scooting Sit to Stand Stand By Assistance Stand to Sit Stand By Assistance Bed to Chair Toilet/Commode Modified Independent Functional Mobility Stand By Assistance Wheeled Walker Please see discipline specific clinical documentation flowsheet for complete details for this therapy evaluation/treatment. SIGNATURE: TOMY Edouard/Felipe PATIENT NAME: Gilda Sorto DATE: December 06, 2019 TIME: 3:10 PM [facility] THERAPY NT HNO ID: [id number] Author: Yadira NavasPtElayne Sher Service: Physical Therapy Author Type: Physical Therapist Type: Therapy (PT/OT/Speech/Resp) Filed: 12/06/2019 3:32 PM Note Text: Physical Therapy Treatment SERVICE DATE: 12/06/2019 SERVICE TIME: 1334 to 1402 ROOM: [place] [address] Recommended Discharge Disposition: Outpatient Physical Therapy Anticipated Discharge Needs: Physical Assist at Home Physical Assist at Home for: Cleaning;Laundry;Meals; Stairs;Shopping;Transpo rtation Recommended Discharge Equipment: No equipment needs anticipated PT Recommendations to Nursing: Ambulate with device;To bathroom;In halls;With assist of 1 person Device: Wheeled Walker PT 6 Clicks Score: 24 Precautions/Activity Restrictions: Total Knee Replacement;Weight Bearing Restrictions;Lines/Tube s/Drains;Fall Risk Extremity With Weight Bearing Restricted: Left Lower Extremity Left Lower Extremity Weight Bearing Status: WBAT ASSESSMENT : Orthostatics are performed and normal - see below. Pt is able to perform transfers, supine HEP, gait, and curb step with no new onset of nausea or drop in BP. Pt is cleared for d/c to OP PT today once cleared by OT and medically cleared. Pt requires continued skilled PT to improve ROM, strength, and functional mobility to allow for full return to PLOF. Vital Signs Pre Assessment: BP Pre BP: 122/58 Pre BP Position: Supine Intra Assessment 1: BP Intra 1 Intra BP 1: 130/65 Intra BP Position 1: Sitting Intra Assessment 2: BP Intra 2 Intra BP 2: 127/85 Intra BP Position 2: Standing Patient Disposition at Start of Session: OOB in Chair;Call Smith in Reach;Family Present Patient Disposition at End of Session: OOB in Chair;Call Smith in Reach;Family Present Tolerated Full Session Without limitations Physical Therapy Problem List: Decreased Activity Tolerance;Decreased Range Of Motion;Decreased Strength;Functional Mobility Impairment;Safety Deficits;Pain Patient /Caregiver Goals: Walk;Go Home Goals for Plan of Care: Able to perform HEP with: Independent Transfer sit to/from stand with: Modified Independent Ambulate with: Supervision Distance: 150 Device: Wheeled Walker Ambulate up and down curb step with: Stand By Assistance Device: Wheeled Walker ROM: 5-90 Progress Toward Goals: Progressing as expected Rehab Potential: Excellent PLAN: Treatment Frequency (times per week): 7 Current admission Treatment Interventions: Education;Strengthening ;Energy Conservation Training;Self Care / Home Management;Functional Mobility Training;Modalities;Adriano ma Management;Pain Management Modalities: Ice Plan of Care developed with: Patient TREATMENT INTERVENTIONS: Therapy Diagnosis: Reduced mobility-other;Decrease d activities of daily living (ADL);Muscle Weakness (generalized) Interventions Provided: Therapeutic Exercise (79412);Gait Training (31067) Therapeutic Exercise (58601) Treatment Minutes: 13 1 unit Skilled Intervention(s): Instruction in therapeutic exercise Verbal and tactile cuing provided for supine HEP Education in importance of changing positions slowly, staying active Gait Training (34889) Treatment Minutes: 15 2 units Skilled Intervention(s): Instruction in sit to stand technique with proper hand placement and body positioning at edge of bed/chair, Instruction in stand to sit technique with LE's touching chair/bed and reaching back for surface, Instruction in sequencing, gait pattern, Instruction in correction of gait deviations, Instruction in WB precautions Pt instructed in curb training with use of WW. Pt instructed to have assist to stabilize WW to prevent rolling/movement during the transition.Pt verbalized understanding. Cueing provided for proper sequencing. Total Timed Code Treatment Minutes: 28 Total Treatment Time (minutes): 28 SUBJECTIVE: Current Hospital Course: Chart reviewed and no significant medical updates relevant to therapy were noted Reason for Physical Therapy Consult : s/p L TKR Relevant Past Medical History: HTN, R mastectomy (no BP on R) Patient Report: Pt states she is feeling ready to go home and is excited to do so. Pt states she has no further questions at this point. Home Environment Patient Lives With: Spouse Assistance Available: 24 Hour Entry To Home: No Stairs Number Of Stairs To Bed/Bath: 0 Tub/Shower Type: WIS Laundry: main floor, can help Equipment Owned: Cane;Grab Bars-Shower;Wheeled Walker;Shower Bench;Wheelchair;Elevat ed Toilet Seat;Long Handled Shoe Horn;Banana Handler Prior Functional Level: Within Functional Limits Prior Functional Level Comments: IND in all ADLs. Enjoys sitting outside and quilting. Active with no AD OBJECTIVE: CURRENT FUNCTIONAL STATUS: Current Functional Mobility Assist Level Additional Information Rolling Independent Supine to Sit Modified Independent Sit to Supine Scooting Independent Sit to Stand Stand By Assistance Stand to Sit Stand By Assistance Bed to Chair Minimal Assistance(x2) Bed To Chair Transfer Type: Stand Pivot Bed To Chair Transfer Equipment: Wheeled Walker Toilet/Commode Gait Stand By Assistance Gait Device: Wheeled Walker Gait Distance (feet): 90 Stairs Curb Step Stand By Assistance Wheeled Walker Car Transfer General Deviations/Observations : Rachna decreased -HLM: 7: Walk 25 feet or more I reviewed and agree with the documentation corresponding to this therapy visit. SIGNATURE: Yadira Sher PT DATE: December 06, 2019 TIME: 3:31 PM Please see discipline specific clinical documentation flowsheet for complete details for this therapy evaluation/treatment. SIGNATURE: DAVID Andrews PATIENT NAME: Gilda Sorto DATE: December 06, 2019 TIME: 2:35 PM [facility] THERAPY NT HNO ID: [id number] Author: Yadira (Pt) Christos Service: Physical Therapy Author Type: Physical Therapist Type: Therapy (PT/OT/Speech/Resp) Filed: 12/06/2019 12:23 PM Note Text: Physical Therapy Treatment SERVICE DATE: 12/06/2019 SERVICE TIME: 1010 to 1050 ROOM: [place] [address] Recommended Discharge Disposition: Outpatient Physical Therapy Anticipated Discharge Needs: Physical Assist at Home Physical Assist at Home for: Transportation;Shopping ;Stairs;Meals;Laundry;C leaning Recommended Discharge Equipment: No equipment needs anticipated PT Recommendations to Nursing: Ambulate with device;To bathroom;In halls;With assist of 1 person;Sit at edge of bed Device: Wheeled Walker PT 6 Clicks Score: 22 Precautions/Activity Restrictions: Total Knee Replacement;Weight Bearing Restrictions;Lines/Tube s/Drains;Fall Risk Extremity With Weight Bearing Restricted: Left Lower Extremity Left Lower Extremity Weight Bearing Status: WBAT ASSESSMENT : Patient is sitting in chair just after using commode with RN. Pt states she is feeling well and HEP is performed with pt. Pt has no further paresthesia at this time. Pt ambulates 90', albeit slowly with SBA and performs small curb step with SBA. Immediately following, pt reports nausea and nearby staff member is called to bring chair. Pt is able to stand with SBA until chair arrives and safely sits in chair. BP 90/47. RN notified and pt wheeled back to room and reports feeling much better. PT to treat again in PM to ensure pt safety. Anticipate d/c to OP PT once cleared by RN. Continued skilled need for strength, ROM, and mobility. Patient Disposition at Start of Session: OOB in Chair;Call Smith in Reach Patient Disposition at End of Session: OOB in Chair;Call Smith in Reach;Family Present Tolerance Limited By Physiologic Response Physical Therapy Problem List: Safety Deficits;Impaired Self Care;Decreased Activity Tolerance;Decreased Range Of Motion;Decreased Strength;Functional Mobility Impairment Patient /Caregiver Goals: Go Home;Walk Goals for Plan of Care: Able to perform HEP with: Independent Transfer sit to/from stand with: Modified Independent Ambulate with: Supervision Distance: 150 Device: Wheeled Walker Ambulate up and down curb step with: Stand By Assistance Device: Wheeled Walker ROM: 5-90 Progress Toward Goals: Progressing as expected Rehab Potential: Good PLAN: Treatment Frequency (times per week): 7 Current admission Treatment Interventions: Education;Energy Conservation Training;Strengthening; Functional Mobility Training;Modalities;Adriano ma Management;Pain Management Modalities: Ice Plan of Care developed with: Patient TREATMENT INTERVENTIONS: Therapy Diagnosis: Reduced mobility-other;Decrease d activities of daily living (ADL);Muscle Weakness (generalized);Unsteadin ess on feet Interventions Provided: Therapeutic Exercise (87530);Gait Training (65971) Therapeutic Exercise (61742) Treatment Minutes: 15 1 unit Skilled Intervention(s): Instruction in therapeutic exercise Verbal and tactile cuing provided for proper HEP completion Education in importance of mobility (see flow sheet for exercises completed) Gait Training (14213) Treatment Minutes: 25 2 units Skilled Intervention(s): Instruction in sit to stand technique with proper hand placement and body positioning at edge of bed/chair, Instruction in stand to sit technique with LE's touching chair/bed and reaching back for surface, Instruction in sequencing, gait pattern, Instruction in correction of gait deviations, Instruction in WB precautions, Instruction in stair negotiation and Instruction in use of equipment, cues for sequence and pattern Total Timed Code Treatment Minutes: 40 Total Treatment Time (minutes): 40 SUBJECTIVE: Current Hospital Course: Chart reviewed and no significant medical updates relevant to therapy were noted Reason for Physical Therapy Consult : s/p L TKR Relevant Past Medical History: HTN, R mastectomy (no BP on R) Patient Report: Sorry about that, I feel fine now though re nausea Home Environment Patient Lives With: Spouse Assistance Available: 24 Hour Entry To Home: No Stairs Number Of Stairs To Bed/Bath: 0 Tub/Shower Type: WIS Laundry: main floor, can help Equipment Owned: Cane;Grab Bars-Shower;Wheeled Walker;Shower Bench;Wheelchair;Elevat ed Toilet Seat Prior Functional Level: Within Functional Limits Prior Functional Level Comments: IND in all ADLs. Enjoys sitting outside and quilting. Active with no AD OBJECTIVE: CURRENT FUNCTIONAL STATUS: Current Functional Mobility Assist Level Additional Information Rolling Independent Supine to Sit Modified Independent Sit to Supine Scooting Independent Sit to Stand Stand By Assistance Stand to Sit Stand By Assistance Bed to Chair Minimal Assistance(x2) Bed To Chair Transfer Type: Stand Pivot Bed To Chair Transfer Equipment: Wheeled Walker Toilet/Commode Gait Stand By Assistance Gait Device: Wheeled Walker Gait Distance (feet): 90 Stairs Curb Step Stand By Assistance Wheeled Walker Car Transfer General Deviations/Observations : Rachna decreased JH-HLM: 7: Walk 25 feet or more I reviewed and agree with the documentation corresponding to this therapy visit. SIGNATURE: Yadira Sher PT DATE: December 06, 2019 TIME: 12:23 PM Please see discipline specific clinical documentation flowsheet for complete details for this therapy evaluation/treatment. SIGNATURE: DAVID Andrews PATIENT NAME: Gilda Sorto DATE: December 06, 2019 TIME: 11:10 AM [facility] ANES POSTPROC EVALon 020 ANES POSTPROC EVAL HNO ID: [id number] Author: Bayron Everett Service: ? Author Type: Anesthesiologist Type: Anesthesia Postprocedure Evaluation Filed: 12/05/2019 1:24 PM Note Text: POST ANESTHESIA EVALUATION NOTE : 1950 Procedure Summary Date: 12/05/19 Room / Location: OR03 / OR Anesthesia Start: 732 Anesthesia Stop: 1055 Procedure: ARTHROPLASTY REPLACE JOINT TOTAL KNEE (Left Knee) Diagnosis: Primary osteoarthritis of left knee Surgeon: Taz Dean Responsible Provider: Bayron Everett Anesthesia Type: spinal, regional ASA Status: 2 Anesthesia Type: spinal, regional Last vitals Vitals Value Taken Time BP 101/88 12/05/2019 12:59 PM Temp 36.3 ?C (97.3 ?F) 12/05/2019 12:59 PM Pulse 75 12/05/2019 12:59 PM HR SpO2 88 12/05/2019 12:10 PM Resp 16 12/05/2019 12:59 PM SpO2 93 % 12/05/2019 12:59 PM Post Anesthesia Patient Status Patient Evaluation: PACU. PACU/ICU Patient Condition: stable. Anticipated Disposition: inpatient floor planned admission. Neurological Status: aware and responsive. Pulmonary Status: breathing comfortably on room air Airway Control: returned to baseline unsupported. Cardiovascular Status: stable. Pain Management: clinically adequate - multimodal analgesia pain management approach Postoperative Hydration: acceptable. Intraoperative Events: no significant anesthesia events Post Operative Nausea/Vomiting Status: Anesthetic Observations: no significant anesthetic observations Recommendation: continue current plan of care and further care per PACU/ICU/floor team. SIGNATURE: Bayron Eevrett MD PATIENT NAME: Gilda Sorto DATE: December 05, 2019 TIME: 1:23 PM CSN: [id number] [facility] ANES PRE-OPon 12-05-2019 ANES PRE-OP HNO ID: [id number] Author: Bayron Everett Service: ? Author Type: Anesthesiologist Type: Anesthesia Preprocedure Evaluation Filed: 12/05/2019 7:13 AM Note Text: ANESTHESIOLOGY DAY OF SURGERY NOTE : 1950 Procedure(s) (LRB): ARTHROPLASTY REPLACE JOINT TOTAL KNEE (Left) Surgeon(s): Taz Dean Estimated body mass index is 34.19 kg/m? as calculated from the following: Height as of 11/26/19: 160 cm (5' 3 ). Weight as of this encounter: 87.5 kg (193 lb). Most recent hematocrit and potassium results: Hematocrit 44.6 11/26/2019 Potassium 4.4 11/26/2019 Relevant Problems CARDIO (+) Hypertension (+) Renal artery aneurysm (HCC) (+) Spider veins of both lower extremities (+) Varicose veins of leg with edema (+) Varicose veins of leg with pain NEURO-PSYCH (+) History of breast cancer Other (+) S/P partial mastectomy, right (+) Wrist arthritis I - PHYSICAL EVALUATION AIRWAY Patient intubated: No. Mallampati: II. TM distance: >3 FB. Neck ROM: full ROM without neurological symptoms. Mouth opening: adequate. Short neck: no. Thick neck: no DENTAL Normal dental observations. Dental findings: teeth intact. II - ANESTHESIA PLAN ASA Score: 2 Anesthetic Plan: spinal and regional Anesthetic plan additional comments: (pre op adductor canal block) + MAC Sedation. NPO Status: adequate Monitoring plan: Standard ASA. Postoperative analgesic plan: parenteral or oral opioids, multimodal analgesia and peripheral nerve block. Anesthetic Risks, Benefits, Alternatives, Personnel Discussed. Consent obtained from: patient. Patient / Surrogate agrees to blood products: yes DNR status not reviewed with patient and/or family prior to surgery. Significant changes in the patient condition since the History and Physical, not otherwise documented in primary service progress note: no. Potential Anesthesia issues that may suggest increased risk of complications or contractions to planned procedure: none. Vitals Value Taken Time BP 129/68 12/05/2019 6:51 AM Pulse 81 12/05/2019 6:51 AM Resp 16 12/05/2019 6:51 AM Temp 36.5 ?C (97.7 ?F) 12/05/2019 6:51 AM SpO2 98 % 12/05/2019 6:51 AM Facility-Administered Medications as of 12/05/2019 Medication Dose Route Frequency - lidocaine 10 mg/mL (1 %) 1-2 mg injection (XYLOCAINE) 0.1-0.2 mL INTRADERMAL PRN - lactated ringers infusion 5-30 mL/hr INTRAVENOUS CONTINUOUS - ceFAZolin iv piggyback 2 g in D5W (iso-osmotic) 100 mL (ANCEF) 2 g INTRAVENOUS Pre-Op Once - bupivacaine liposome (PF) 1.3 % (13.3 mg/mL) 133 mg injection (EXPAREL) 133 mg INFILTRATION ONCE - [COMPLETED] acetaminophen 650 mg tab(s) (TYLENOL) 650 mg ORAL Pre-Op Once - [COMPLETED] gabapentin 100 mg cap(s) (NEURONTIN) 100 mg ORAL Pre-Op Once - [COMPLETED] oxyCODONE ER 10 mg tab(s) (OxyCONTIN) 10 mg ORAL Pre-Op Once - scopolamine 1 mg over 3 days 1 Patch (TRANSDERM-SCOP) 1 Patch TRANSDERMAL Pre-Op Once - [START ON 12/06/2019] scopolamine - REMOVE PATCH OTHER ONCE And - scopolamine - VERIFY patch OTHER q 8 H - tranexamic acid irrigation 3000 mg in NaCl 0.9% 100 mL (CYKLOKAPRON) 3,000 mg IRRIGATION ONCE Outpatient Medications as of 12/05/2019 Medication Sig - triamterene-hydrochloro thiazide 37.5-25 mg per capsule Take 1 capsule by mouth once daily. - zolpidem (AMBIEN) 5 mg tablet Take 1 tablet by mouth daily at bedtime. - citalopram hydrobromide 10 mg tablet Take 10 mg by mouth once daily. - L-LYSINE 500MG TABLET takes daily - OCUVITE TABLET takes one per day - diclofenac, EC, (VOLTAREN) 75 mg EC tablet TAKE 1 TABLET BY MOUTH TWICE DAILY ONLY NEEDED. - ALPRAZolam (XANAX) 0.25 mg tablet Take 1 tablet by mouth as needed. I have interviewed and examined the patient. I have reviewed the medical record and/or the pre-anesthesia evaluation, pertinent labs, and test results. This contains updated information obtained within 48 hours of Surgery/Procedure. SIGNATURE: Bayron Everett MD PATIENT NAME: Gilda Sorto DATE: December 05, 2019 TIME: 7:11 AM CSN: [id number] [facility] BRIEF OP NOTon 12-05-2019 BRIEF OP NOT HNO ID: [id number] Author: Taz Dean Service: Orthopaedic Surgery Author Type: Physician Type: Brief Op Note Filed: 12/05/2019 10:38 AM Note Text: TOTAL KNEE ARTHROPLASTY BRIEF OPERATIVE / PROCEDURE NOTE LOG ID: [id number] Surgery/Procedure Date: 12/05/2019 Incision/Procedure Start Time: 8:08 AM Incision Close/Procedure End Time: 10:34 AM Surgeon(s)/Proceduralis t(s) and Vocational Technical Education Director(s): Surgeon(s) and Role: * Taz Dean - Primary Physician Vocational Technical Education Director: Gavin Ballard Procedure(s): Procedure(s) (LRB): ARTHROPLASTY REPLACE JOINT TOTAL KNEE (Left) Anesthesia: Monitored Anesthesia Care with spinal Peripheral Block Type: Saphenous/Adductor Approach: Median parapatellar Findings: Advanced DJD left knee Estimated Blood Loss: 75 mls Specimens: None Complications: None Implant: Implant Name Type Inv. Item Serial No. Life Consultant Lot No. [id number] No. Used Action INSERT PERSONA 6-9 C-D POLYETHYLENE 10MM ARTICULAR POSTERIOR STABILIZED - [id number] Joint - Knee INSERT PERSONA 6-9 C-D POLYETHYLENE 10MM ARTICULAR POSTERIOR STABILIZED [employer] [id number] Left 1 Implanted COMPONENT 29MM ALL POLY PATELLAR PSN - [id number] Joint - Knee COMPONENT 29MM ALL POLY PATELLAR PSN [employer] [id number] Left 1 Implanted COMPONENT PERSONA 6 NARROW COCR FEMORAL CEMENTED POSTERIOR STABILIZE KNEE - [id number] Joint - Knee COMPONENT PERSONA 6 NARROW COCR FEMORAL CEMENTED POSTERIOR STABILIZE KNEE [employer] [id number] Left 1 Implanted BASEPLATE PERSONA 5D D TIVANIUM TIBIAL CEMENTED STEM KNEE LEFT - [id number] Joint BASEPLATE PERSONA 5D D TIVANIUM TIBIAL CEMENTED STEM KNEE LEFT [employer] [id number] Left 1 Implanted CEMENT SIMPLEX P BONE RADIOPAQUE FULL DOSE STERILE - [id number] Cement / Putty CEMENT SIMPLEX P BONE RADIOPAQUE FULL DOSE STERILE [employer] [id number] Left 1 Implanted Bearing Surface: Fixed Fixation: Cemented SSI Risk Factors: NA Constraint: Posterior Stabilized Other: None Pre-Op/Pre-Procedure Diagnosis: DJD left knee Post-Op/Post-Procedure Diagnosis: DJD left knee Weight Bearing Status: Weight Bearing As Tolerated SIGNATURE: Taz Dean DO PATIENT NAME: Gilda Sorto DATE: December 05, 2019 TIME: 10:36 AM PAGER/CONTACT #: [facility] CASE MGT INIT [facility] 2019 CASE MGT INIT [facility] ID: [id number] Author: Yanna (Rn) LOAN Barriga Service: Care Management Author Type: Registered Nurse Type: Care Mgt Initial Assessment Filed: 12/05/2019 1:53 PM Note Text: CARE MANAGEMENT: ASSESSMENT AND DISCHARGE PLAN SERVICE DATE: December 05, 2019 SERVICE TIME: 1:52 PM PRIMARY CARE PHYSICIAN: Gonsalo Hubbard MD ADMISSION STATUS: Ambulatory Surgery MEDICAL: [employer] MEDICARE 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 Last discharge within 30 days: No Advance Directive: Current Advance Directive: Health Care Power of Machine Quilt Stuffer;Living Will In Chart: Yes Up To Date and Valid: Yes Health LiteracyHow often do you need to have someone help you when you read instructions, pamphlets, or other written material from your doctor or pharmacy? : 1 - Never How confident are you filling out medical forms by yourself?: 1 - Extremely If Patient scores > 3 on either question, the following interventions were put into place:: Patient did not score > 3 on either question. Baseline Mental Status Prior to this Illness what was the patient's Baseline Mental Status?: Alert AND Oriented Prior to this illness, has anyone described the patient having any of the following behaviors?: Not Applicable Relationship of the informant to the patient:: Self Functional Status: Independent Does Patient Currently Receive Any Community Services or Home Care?: None Equipment Prior to Admission: Walker;Cane SOCIAL: Living Arrangements: Home Lives With: Spouse Financial Resources: RetiredPrimary Contact: Extended Emergency Contact Information Primary Emergency Contact: Fareed Sorto Address: [address] [address] [facility] Mobile Relation: Spouse Supportive Patient Contact:: Yes Contact Resources: Family Social Needs Food insecurity Worry: Never true Inability: Never true Resources Needed: No Social Needs Financial resource strain: Not hard at all Social Needs Transportation needs Medical: No Non-medical: No Caregiver AssessmentCaregiver is ready, willing and able to meet the patient's needs as recommended by the inter-professional team:: No Caregiver needed Does the patient have an acute stroke diagnosis, or has the patient had a stroke during this admission?: No Patient's transition needs and plan for meeting these needs: Outpatient therapy Patient's perception of need for this admission: knee replacement Medication Adherance I am convinced of the importance of my prescription medication: 0 - Agree Completely I worry that my prescription medication will do more harm than good to me : 0 - Disagree Completely I feel financially burdened by my vqt-hz-xhbmwz expenses for my prescription medication:: 0 - Disagree Completely Risk Score: 0 Patient is categorized as: Low risk < 2 Are you interested in bedside delivery of your medications? Yes Is Patient Psychosocially Complex?: No ASSESSMENT AND PLAN: Medical Needs: Medical Needs: None Psychosocial Needs: Psychosocial Needs: None FREEDOM OF CHOICE EXPLAINED: [place] of Choice Given: No Reason Not Given: No placements necessary POTENTIAL TRANSITION PLANS Outpatient Therapy Patient from home with spouse. Has equipment. Has OP PT on 12/09 at 11:45 in [place]. SIGNATURE: Yanna Barriga RN PATIENT NAME: Gilda Sorto DATE: December 05, 2019 TIME: 1:52 PM PAGER/CONTACT #: [phone] [facility] NURSING PROGon 12-05-2019 NURSING PROG HNO ID: [id number] Author: Ekaterina NavasRn) LOAN Erickson Service: Nursing Author Type: Registered Nurse Type: Nursing Progress Note Filed: 12/05/2019 12:58 PM Note Text: Nursing Progress Note Patient Name: Gilda Sorto Patient Location: AV Surgery/AV Surgery Daily Note: Patient arrived in room 510 via bed transport. Patient alert and oriented x 3. This note was completed by: Ekaterina Erickson RN [facility] OPERATIVE NOon 12-05-2019 OPERATIVE NO HNO ID: [id number] Author: Taz Dean Service: Orthopaedic Surgery Author Type: Physician Type: Operative Report Filed: 12/05/2019 8:42 PM Note Text: [facility] OPERATIVE REPORT PATIENT NAME: Gilda Sorto AGE: [age] year old SEX: female LOG ID: [id number] SURGERY DATE: 12/05/2019 SURGEON: Taz Dean D.O. LICENSED CLINICIAN: Gavin Ballard PA-C, her role in the case was to assist with retraction, leg positioning, and incision closure. No qualified Orthopedic resident was available to assist with this case. PROCEDURE: Left TOTAL KNEE ARTHROPLASTY Procedure(s) (LRB): ARTHROPLASTY REPLACE JOINT TOTAL KNEE (Left) ANESTHESIA: Monitored Anesthesia Care with spinal PRE-OP DIAGNOSIS: Pre-Op Diagnosis Codes: * Primary osteoarthritis of left knee [M17.12] POST-OP DIAGNOSIS: Pre-Op Diagnosis Codes: * Primary osteoarthritis of left knee [M17.12] ESTIMATED BLOOD LOSS: 150 mL SPECIMENS: None DRAINS: None OPERATIVE IMPLANTS: Caty Persona Total Knee System - left SIZE TYPE Posterior stabilized cemented standard femoral component 6N Persona Stemmed cemented natural tibial component D Persona Polyethylene patella component 29 mm Persona Highly cross-linked polyethylene fixed bearing posterior stabilized component 10 mm Persona PROCEDURE:? The patient was correctly identified in the preoperative holding area.? Risks,? benefits,? complications,? expectations,?and? alternatives to the above-listed procedure were explained to the patient.? The patient understood and wished? to? proceed? with? the? surgical intervention.? Under informed and written consent,? the? patient? was taken from the preoperative holding area to the operative? suite. The patient received? the? appropriate? adductor? canal nerve block in the Left lower extremity by the department of anesthesia? under sterile conditions.? Anesthesia was successfully performed. The? patient? did? receive? the?appropriate preoperative IV antibiotic. ?Patient was positioned supine on the operative? table for the Left?total? knee? arthroplasty? procedure.? A well-padded tourniquet was placed over? the? patient's? proximal? Left ? thigh and the Left lower extremity was? sterilely? prepped? and? draped? free? in? usual? standard? surgical fashion.? A sterile Esmarch was used? to? exsanguinate? the Left?lower extremity and the tourniquet was? inflated? to? 250 mmHg.?? Following? this, a standard longitudinal skin incision centered? over? the Left knee and patella was performed with a 10 blade scalpel.? Dissection was taken? down? to? the? extensor? mechanism,? where the standard medial? parapatellar? arthrotomy? was? performed.?? The patella was everted, giving full access and excellent visualization to the Left knee? joint.? At this point, all bony osteophytes were? removed, and the anterior and posterior cruciate ligaments were released.?? The? medial and lateral menisci were? resected, and any? inflamed synovium was resected as well.? The opening femoral canal reamer was then utilized to begin preparation of the distal femur. The distal femoral intramedullary guide austen was?then placed up the shaft of the femur and the distal femoral cutting block was set for a 5-degree valgus cut angle.? Once? the? distal? femoral? cutting block was positioned to take 10 mm of bone off the distal? femur,? the block was pinned in place.? The distal femoral bone resection was then performed.??The? cutting block was removed, and the tibia was translated? anteriorly. The extramedullary tibial cutting guide was then positioned and? set? to? take? 2? millimeters? off? the low side, the more affected compartment. With the cutting block pinned in?appropriate position, the? proximal? tibial? bone? resection? was? performed taking great care not to injure the collateral ligaments, patellar tendon, or the posterior soft tissue structures of the?knee. Following the tibial bone resection, the 10 mm trial extension block was positioned and?confirmed appropriate amount of bone was resected from the tibia and femur. ? At? this? point, attention was placed on the femur. The femoral? sizing? guide was positioned and the patient matched a size 6 femoral component.? The size 6 femoral cutting? block?was then appropriately? positioned and?secured,?aligning? the cutting block up with the epicondylar?axis to?give the?appropriate external rotation for the cuts. With the cutting block in position,? it?was? then pinned in place.? The anterior-posterior femoral bone resections followed? by? the? anterior-posterior chamfer cuts were then performed at this time, and the cutting block was removed.? At? this? point,? attention? was placed back on the tibia. The tibia was again translated forward and the tibial sizing guide? was? used? to? measure the tibia. The tibia measured a size D component.? With a? size D?guide? in? position, the tibia was prepared using the smokestack reamer and keel?punch.? A trial tibial tray was then? secured? in? place.? Attention?was?again placed?back on the femur.? The trial?size 6N femoral? component? was? positioned? and fit well.? At this point, the box cut guide of the trial femoral? component was used to make the femoral box cut.? Once? this was performed, the trial tibial polyethylene components were positioned, and the patient's knee was found to be well stabilized with a 10-mm component giving full? range of motion in flexion and extension as well as no instability with varus or?valgus?stress.? Soft? tissues? were balanced? both? medially? and? laterally? appropriately throughout the full arc of motion indicating the this component? to be the appropriate size polyethylene needed. ? At? this? point, attention was placed on the patella. The patellar bone calipers?were? used?to measure the patient's [place] patella and guide the amount of?bone resection needed.? Following this, the articular side of the patella was? resected?with a?bone saw, taking the appropriate amount of bone from the patella.??The? patellar sizing guide was then positioned?and?the patient?matched a 29-mm patellar component.? The appropriate size patellar guide was?positioned and the 3 gliding pilot instructor holes were drilled. The 29-mm trial patellar component was placed and the knee was reduced and taken through range of? motion. Patellar? tracking? found to be within normal limits with no abnormal? tension? or? subluxation occurred through the hands free range of motion exam. ? At? this? point,?the decision?was made to proceed with?these sizes?for?the definitive? implants.? All the trial implants? were? removed, and the knee was thoroughly irrigated with copious amounts of pulsatile lavage irrigation.?The?posteri or pain block medication was then injected into the posterior, medial, and lateral capsular tissue as well as the periosteal regions of the distal femur and proximal tibia.? Following this,?the cut bone surfaces of the femur, tibia, and patella? were? thoroughly irrigated, cleaned, and dried.? While this process was occuring, the? bone? cement? was? being? mixed on the back table.?? Once the bone cement? was? of? the? appropriate? consistency,? the? patella,? tibia? and? femoral? components? were? impacted?? and? compressed in place with all excess bone cement removed carefully.? A 10-mm? trial? polyethylene component was positioned as the knee was held in full extension? with? axial? load while the bone cement was hardening.? Any remaining bone cement was removed from all three components at this time. Once the bone cement was of? the? appropriate consistency, the trial tibial polyethylene components were used and the patient was found to match a size 10 component. The knee was taken through full range of motion and found?to?be? very stable, and full?flexion?and extension?was? achieved without?any restriction.? There was no varus or valgus instability and the patellar tracking was? appropriate as well. ? At this point, the trial polyethylene component was removed and the tourniquet was? deflated.??? Any? significant? bleeding? was? cauterized? to? obtain?? appropriate? hemostasis.?? Once? the appropriate level hemostasis was achieved,? the? knee? was? thoroughly? irrigated? and? drained? with? copious? amounts? of? pulsatile? lavage? irrigation? once? again.? Once all the fluid was removed,? the? definitive? 10? mm? polyethylene? component? was then secured on the tibial tray? appropriately.?? The? knee was reduced once again and taken through full range of motion and found to be? stable once again with very good range of motion, flexion extension, and very good? soft tissue balancing identified. ? At? this? point,? the final irrigation was performed.? The capsule and? quadriceps? tendon? were repaired using interrupted #1 Ethibond suture followed by interrupted #1?Vicryl suture in a bdprot-ip-sthyk alternating fashion, sealing off the remaining portions of? the? capsule.? Following this, the subcutaneous fat layer was reapproximated? using? #0 Vicryl in interrupted buried fashion to diminish any space.??The subcutaneous?skin was then reapproximated using 2-0 vicryl in an interrupted buried fashion.?The skin? edges were? then reapproximated?using 4-0 Monocryl suture in?a?running?subcuticul ar? fashion.??The?knee was then cleaned and dried and a dressing? was? applied? consisting? of? sterile?Exofin dermal sealant,? followed? by?sterile?4x4s, sterile ABDs, sterile softroll, and a compressive Claus wrap.?The patient was reversed from any sedation by the? primary Anesthesia at this time.? Patient was then transferred to a [facility], and taken to?the recovery room in stable condition having?tolerated the?procedure well.?? Sponge and needle counts were correct.? The case was? clean and? elective.? There were no complications. Incision Start: 8:08 AM Incision Stop: 10:34 AM SIGNATURE: Taz Dean, DATE: December 05, 2019 TIME: 8:33 PM [facility] PT EDon 12-05-2019 PT ED HNO ID: [id number] Author: Jazz (Rn) LOAN Hilario Service: ? Author Type: Registered Nurse Type: Patient Education Filed: 12/05/2019 6:55 AM Note Text: PRE OP LEARNING ASSESSMENT PROCEDURE/SURGERY: left TKR READINESS TO LEARN COGNITIVE ABILITY: Alert and oriented MOTIVATION TO LEARN: Eager FAMILY SUPPORT: None - Unavailable/disinterest ed PATIENT LEARNS BEST BY: Individual Instruction FACTORS AFFECTING LEARNING: None PHYSICAL LIMITATIONS AFFECTING LEARNING: None Normal [facility] THERAPY NTon 12-05-2019 THERAPY NT HNO ID: [id number] Author: Yadira (Pt) Christos Service: Physical Therapy Author Type: Physical Therapist Type: Therapy (PT/OT/Speech/Resp) Filed: 12/05/2019 5:45 PM Note Text: Physical Therapy Evaluation SERVICE DATE: 12/05/2019 SERVICE TIME: to 1703 ROOM: [place] [id number] Recommended Discharge Disposition: Outpatient Physical Therapy Anticipated Discharge Needs: Physical Assist at Home Physical Assist at Home for: Stairs;Safety;Shopping; Transportation;Meals;La undry;Cleaning Recommended Discharge Equipment: No equipment needs anticipated PT Recommendations to Nursing: Ambulate with device;To bathroom;In halls;Transfer to/from chair;OOB for Meals;With assist of 2 people;Sit at edge of bed Device: Wheeled Walker PT 6 Clicks Score: 18 Precautions/Activity Restrictions: Total Knee Replacement;Weight Bearing Restrictions;Lines/Tube s/Drains;Fall Risk Extremity With Weight Bearing Restricted: Left Lower Extremity Left Lower Extremity Weight Bearing Status: WBAT ASSESSMENT : Patient presents with numbness in L knee, knee buckling, and decreased ROM, strength, and activity tolerance which limits her ability to safely ambulate and complete stairs. Pt reports she has been doing HEP already b4 PT arrived and is ready to urinate. Upon standing with min A x2, pt L knee itzel. Pt instructed to use muscles to lock out knee as stand pivot transfer is completed to bedside commode. Pt verbalizes understanding of precautions and importance of mobility. Pt has lost 8lb in past month as she began working out to pre-hab her knee. Anticipate d/c to OP PT tomorrow once cleared on curb step and once medically cleared. Continued skilled PT needed to improve ROM, strength, and activity tolerance to allow for full return to PLOF. Patient Disposition at Start of Session: Supine in Bed;Call Smith in Reach Patient Disposition at End of Session: OOB in Chair;Call Smith in Reach Tolerated Full Session Physical Therapy Problem List: Edema;Pain;Safety Deficits;Impaired Self Care;Decreased Activity Tolerance;Decreased Range Of Motion;Decreased Strength;Functional Mobility Impairment;Balance Impaired Patient /Caregiver Goals: Walk;Go Home Goals for Plan of Care: Able to perform HEP with: Independent Transfer sit to/from stand with: Modified Independent Ambulate with: Supervision Distance: 150 Device: Wheeled Walker Ambulate up and down curb step with: Stand By Assistance Device: Wheeled Walker ROM: 5-90 Rehab Potential: Excellent PLAN: Treatment Frequency (times per week): 7 Current admission Treatment Interventions: Education;Energy Conservation Training;Joint Mobility;Strengthening; Functional Mobility Training;Edema Management;Pain Management Plan of Care developed with: Patient TREATMENT INTERVENTIONS: Therapy Diagnosis: Reduced mobility-other;Decrease d activities of daily living (ADL);Muscle Weakness (generalized);Unsteadin ess on feet;Difficulty walking-musculoskeletal Interventions Provided: Evaluation;Gait Training (20704);Therapeutic Exercise (60109) $ Evaluation-Low (89297) Billed Units: 1 unit Therapeutic Exercise (12651) Treatment Minutes: 10 1 unit Skilled Intervention(s): Instruction in therapeutic exercise Verbal and tactile cuing provided for proper HEP completion Education in knee precautions and pain science Gait Training (90776) Treatment Minutes: 13 1 unit Skilled Intervention(s): Instruction in sit to stand technique with proper hand placement and body positioning at edge of bed/chair, Instruction in stand to sit technique with LE's touching chair/bed and reaching back for surface, Facilitation of L LE movememnt during stand pivot transfer, Instruction in WB precautions and Instruction in use of equipment, cues for sequence and pattern Total Timed Code Treatment Minutes: 23 Total Treatment Time (minutes): 38 SUBJECTIVE: Current Hospital Course: Chart reviewed; pt is a 69yo F s/p L TKR Reason for Physical Therapy Consult : s/p L TKR Relevant Past Medical History: HTN, R mastectomy (no BP on R) Patient Report: I hear day 4-7 are the worst, but I know that that is normal. Home Environment Patient Lives With: Spouse Assistance Available: 24 Hour Entry To Home: No Stairs Number Of Stairs To Bed/Bath: 0 Tub/Shower Type: WIS Laundry: main floor, can help Equipment Owned: Cane;Grab Bars-Shower;Wheeled Walker;Shower Bench;Wheelchair;Elevat ed Toilet Seat Prior Functional Level: Within Functional Limits Prior Functional Level Comments: IND in all ADLs. Enjoys sitting outside and quilting. Active with no AD OBJECTIVE: CURRENT FUNCTIONAL STATUS: Current Functional Mobility Assist Level Additional Information Rolling Independent Supine to Sit Modified Independent Sit to Supine Scooting Independent Sit to Stand Minimal Assistance(x2) Stand to Sit Contact Guard Assistance Bed to Chair Minimal Assistance(x2) Bed To Chair Transfer Type: Stand Pivot Bed To Chair Transfer Equipment: Wheeled Walker Toilet/Commode Gait Stairs Curb Step Car Transfer -HLM: 5: Standing (1 or more minutes) I reviewed and agree with the documentation corresponding to this therapy visit. SIGNATURE: Yadira Sher, PT DATE: December 05, 2019 TIME: 5:45 PM Please see discipline specific clinical documentation flowsheet for complete details for this therapy evaluation/treatment. SIGNATURE: Raymon Owens, SPT PATIENT NAME: Gilda Sorto DATE: December 05, 2019 TIME: 5:30 PM [facility] Type and Screenon 12-05-2019 ABO/RH(D) Positive [facility] CNPNon 12-04-2019 CNPN Telephone ([facility]) GILDA SORTO ([id number]) 1950 F Date Time Provider Department 12/04/19 GAVIN BALLARD) [facility] During your visit today, we recorded the following information about you: Gavin Ballard PA-C 12/04/2019 12:51 PM Signed Per review no recent. 30 day type and screen or confirm blood type. There is a confirm blood type from 2012. Discussed with Dr. Dean and also pre anesthesia SCOTTY Butler and will place orders for patient to get labs on arrival before surgery tomorrow. Patient agreeable to go to lab today but due to michaels virus situation patient was advised to stay at home after michaels virus test. Gavin Ballard PA-C Allergies As of Date: 12/04/2019 Noted Allergy Reaction SULFA (SULFONAMIDE ANTIBIOTICS) 03/25/2004 10 - Anaphylaxis Comments: rash, trouble breathing DOXYCYCLINE 08/11/2017 2 - Rash Date Reviewed: 12/04/2019 Reviewed by: Gavin Velázquez) Nguyen - Fully Assessed Reason for Visit: labs [Other] Prescriptions as of 12/04/2019 Sig: NITROFURANTOIN MONOHYDRATE AND * Take 1 capsule by mouth twice* OTC NUTRITIONAL SUPPLEMENT Take 1 tablet by mouth once d* MUPIROCIN 2 % TOPICAL OINTMENT Apply 0.5 inch with cotton sw* DICLOFENAC SODIUM 75 MG TABLE* TAKE 1 TABLET BY MOUTH TWICE * TRIAMTERENE 37.5 MG-HYDROCHLO* Take 1 capsule by mouth once * ZOLPIDEM 5 MG TABLET Take 1 tablet by mouth daily * ALPRAZOLAM 0.25 MG TABLET Take 1 tablet by mouth as nee* CITALOPRAM 10 MG TABLET Take 10 mg by mouth once guillermo* * L-LYSINE 500 MG TABLET takes daily * OCUVITE TABLET takes one per day Problem List As Of Date 12/04/2019 Noted Resolved SKIN HYPERTRO/ATROPH NOS [L91.9, L90.9] 03/25/2004 DYSFUNCT EUSTACHIAN TUBE [H69.80] 11/26/2004 SENSORNEUR HEAR LOSS NOS [H90.5] 11/26/2004 PLASTIC SURGERY NEC [Z41.1] 07/21/2006 MALIGN NEOPL BREAST NOS [C50.919] 11/09/2007 Wrist arthritis [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 Hypertension [I10] 09/14/2012 More... DISPOSITION AND FOLLOW-UP [V999.01] 09/14/2012 More... Varicose veins of leg with edema [I83.899] 10/28/2015 Varicose veins of leg with pain [I83.819] 11/27/2015 Spider veins of both lower extremities [I83.93] 04/22/2016 Acute medial meniscus tear of left knee [S83.24*10/13/2017 Primary osteoarthritis of left knee [M17.12] 10/13/2017 Breast asymmetry between [place] breast and jennifer*12/02/2017 More... S/P partial mastectomy, right [Z90.11] 12/02/2017 More... History of breast cancer [Z85.3] 12/02/2017 More... Mass of left knee [R22.42] 01/05/2018 Tear of lateral meniscus of left knee [S83.282A]01/06/2018 More... Complex tear of lateral meniscus of left knee a*01/06/2018 Encounter Status:Closed by GAVIN BALLARD on 12/04/19 [facility] NURSING PROGon 11-26-2019 NURSING PROG HNO ID: [id number] Author: Stephanie Cuevas (Rn) LOAN Bryant Service: Anesthesiology Author Type: Registered Nurse Type: Nursing Progress Note Filed: 11/30/2019 10:58 AM Note Text: PACC Nurse Progress Note History AND Physical: PACC Visit Date: 11/26/2019 Labs Within Last 6 Months: CBC: Date 11/26/2019 BMP/CMP: Date 11/26/2019 PT: Date 11/26/2019 PTT: Date 11/26/2019 UA: Date 11/26/2019 Urine C+S: Date 11/26/2019 COVID-19: Date scheduled for 12/03/2019 Imaging Within Last 12 Months: CT Scan chest Date: 11/22/2019 Cardiac Testing: EKG in last 12 Months: Yes: Date: 11/26/2019, Comment: confirmed in EPIC Last Menstrual Period: LMP Date: No LMP recorded Postmenopausal >1yr: N/A, S/P Hysterectomy: Yes , 1990 BMI Percentile (PEDS): N/A Risk Assessment: N/A Anesthesia Review: N/A Narrative: N/A Pre-op Considerations: Renal artery aneurysm Assessment: s/p repair 2012- last imaging 11/2019- stable Vascular OV 11/2019- stable- follow up in 2 years ? ? Hypertension Assessment: controlled BP 129/61 ? ? History of breast cancer Assessment: s/p right part mastectomy and SLNB, chemo and radiation NO BP/IV in right arm Chart Check: COMPLETED COVID-19: Date scheduled for 12/03/2019 Stephanie Bryant RN November 30, 2019 10:58 AM [facility] HOSPon 11-01-2019 HOSP Patient:Gilda Sorto MRN: Height:5' 3 (1.6 m) Weight:193 lb (87.544 kg) Outpatient Medications as of 12/05/19: nitrofurantoin monohydrate and macrocrystal (MACROBID) 100 mg capsule OTC NUTRITIONAL SUPPLEMENT mupirocin (BACTROBAN) 2 % ointment diclofenac, EC, (VOLTAREN) 75 mg EC tablet triamterene-hydrochloro thiazide 37.5-25 mg per capsule zolpidem (AMBIEN) 5 mg tablet ALPRAZolam (XANAX) 0.25 mg tablet citalopram hydrobromide 10 mg tablet L-LYSINE 500MG TABLET OCUVITE TABLET Admission/Clinic Administered Medications as of 12/05/19: lidocaine 10 mg/mL (1 %) 1-2 mg injection (XYLOCAINE) lactated ringers infusion ceFAZolin iv piggyback 2 g in D5W (iso-osmotic) 100 mL (ANCEF) bupivacaine liposome (PF) 1.3 % (13.3 mg/mL) 133 mg injection (EXPAREL) scopolamine 1 mg over 3 days 1 Patch (TRANSDERM-SCOP) scopolamine - REMOVE PATCH scopolamine - VERIFY patch tranexamic acid irrigation 3000 mg in NaCl 0.9% 100 mL (CYKLOKAPRON) Problem List: Unspecified hypertrophic and atrophic condition of skin [L91.9, L90.9] Dysfunction of eustachian tube [H69.80] Sensorineural hearing loss, unspecified [H90.5] Other plastic surgery for unacceptable cosmetic appearance [Z41.1] Malignant neoplasm of breast (female), unspecified site [C50.919] Wrist arthritis [M19.039] Renal artery aneurysm (HCC) [I72.2] Hypertension [I10] DISPOSITION AND FOLLOW-UP [V999.01] Varicose veins of leg with edema [I83.899] Varicose veins of leg with pain [I83.819] Spider veins of both lower extremities [I83.93] Acute medial meniscus tear of left knee [S83.242A] Primary osteoarthritis of left knee [M17.12] Breast asymmetry between [place] breast and reconstructed breast [N65.1] S/P partial mastectomy, right [Z90.11] History of breast cancer [Z85.3] Mass of left knee [R22.42] Tear of lateral meniscus of left knee [S83.282A] Complex tear of lateral meniscus of left knee as current injury [S83.272A] Allergies: Sulfa (Sulfonamide Antibiotics) Doxycycline Date Verified: 12/05/19 Lab Values Lab Value Units Date High Low POTA* 4.4 mmol/L 11/26/2019 5.1 3.7 ALFREDITO* 44.6 % 11/26/2019 46.0 36.0 Progress Notes ([facility]): Gavin Ballard PA-C 12/04/2019 12:51 PM Signed Per review no recent. 30 day type and screen or confirm blood type. There is a confirm blood type from 2012. Discussed with Dr. Dean and also pre anesthesia SCOTTY Butler and will place orders for patient to get labs on arrival before surgery tomorrow. Patient agreeable to go to lab today but due to michaels virus situation patient was advised to stay at home after michaels virus test. Gavin Ballard PA-C Progress Notes ([facility]): Ashleigh Alex APRN.CNP 11/28/2019 8:45 AM Signed Please call patient and advise that on pre-op labs UA showed leukocytes and urine culture revealed possible contaimination Due to surgery being 12/04- will treat with low dose antibiotics for possible infection Rx for Macrobid sent to pharmacy. Advise to start AMBER and take BID for 7 days Thank you Ashleigh Alex APRN.[facility] Na Beltre LPN 11/28/2019 8:56 AM Signed Patient aware. Pharmacy verified. Will steel pickler and start first does this am. Na Beltre LPN Normal [facility] Vital Signs Date Time Vital Sign Value Performing Clinician Faci lity 06-30-2023 09:46-0500 Body mass index (BMI) [Ratio] 35.07 kg/m2 Samia Warren MECHANICAL ENGINEERING PROFESSOR Work Phone: [facility] 06-30-2023 09:46-0500 Body temperature 97.11 [degF] Samia Warren MECHANICAL ENGINEERING PROFESSOR Work Phone: [facility] 06-30-2023 09:46-0500 Body weight 89.81 kg Samia Warren MECHANICAL ENGINEERING PROFESSOR Work Phone: [facility] 06-30-2023 09:46-0500 Diastolic blood pressure 80 mm[Hg] Samia Warren MECHANICAL ENGINEERING PROFESSOR Work Phone: [facility] 06-30-2023 09:46-0500 Heart rate 96 /min Samia Warren MECHANICAL ENGINEERING PROFESSOR Work Phone: [facility] 06-30-2023 09:46-0500 SaO2% (BldA) [Mass fraction] 97 % Samia Warren MECHANICAL ENGINEERING PROFESSOR Work Phone: [facility] 06-30-2023 09:46-0500 Systolic blood pressure 128 mm[Hg] Samia Warren MECHANICAL ENGINEERING PROFESSOR Work Phone: [facility] 04-16-2022 11:52-0500 Body temperature 98.1 [degF] Sharon Saldivar APRN.LACROSSE COACH Work Phone: [facility] 04-16-2022 11:52-0500 Diastolic blood pressure 60 mm[Hg] Sharon Saldivar APRN.LACROSSE COACH Work Phone: [facility] 04-16-2022 11:52-0500 Heart rate 85 /min Sharon Saldivar APRN.LACROSSE COACH Work Phone: [facility] 04-16-2022 11:52-0500 Respiratory rate 20 /min Sharon Saldivar APRN.LACROSSE COACH Work Phone: [facility] 04-16-2022 11:52-0500 SaO2% (BldA) [Mass fraction] 100 % Sharon Saldivar APRN.LACROSSE COACH Work Phone: [facility] 04-16-2022 11:52-0500 Systolic blood pressure 117 mm[Hg] Sharon Saldivar APRN.LACROSSE COACH Work Phone: [facility] Encounters Encounter Date Encounter Type Care Provider Facility Start: 01-06-2024 End: 01-06-2024 ambulatory GRAZYNA BERMUDEZ Not Available Start: 12-28-2023 End: 12-28-2023 ambulatory GRAZYNA CHAVIRATI Not Available Start: 09-26-2023 End: 09-26-2023 ambulatory GONSALO HUBBARD Not Available Start: 06-30-2023 End: 06-30-2023 Office outpatient visit 15 minutes Samia Warren NP Work Phone: [facility] Comment on above: Viral upper respirat ory tract infection (Primary Dx); Cough, unspecified type; Insomnia, unspecified type; Morbid obesity (CMS/HCC); History of breast cancer Start: 06-30-2023 End: 06-30-2023 ambulatory GONSALO HUBBARD Not Available Start: 04-26-2023 End: 04-26-2023 ambulatory GONSALO HUBBARD Not Available Start: 04-19-2023 End: 04-19-2023 ambulatory Gonsalo Hubbard Facility:[facility] Start: 04-12-2023 End: 04-12-2023 ambulatory KAYLA MATA Facility:[facility] Start: 05-04-2022 ambulatory JALEN JOHANFREDIMICHELLEVera Facility :UNKNOWN Start: 04-16-2022 End: 04-16-2022 ambulatory GONSALO HUBBARD Facility:[facility] Start: 04-16-2022 Documentation procedure Mammog samantha Coordinator [facility] Start: 04-16-2022 Letter encounter Mammography Coordinator [facility] Department Start: 04-16-2022 End: 04-16-2022 ambulatory Sharon Saldivar APRN.LACROSSE COACH Work Phone: Hematology/Oncology Comment on above: Encounter for screen ing mammogram for breast cancer (Primary Dx); Stage 1 breast cancer, ER-, left (HCC) Start: 04-16-2022 End: 04-16-2022 Patient encounter procedure Sharon Saldivar APRN.CNP Work Phone: [facility] Start: 04-16-2022 End: 04-16-2022 Subsequent hospital visit by physician [facility] Work Phone: Mammography Comment on above: Encounter for screen ing mammogram for breast cancer [Z12.31] Start: 01-21-2022 ambulatory JALENMARIO PENNE Facility :UNKNOWN Start: 01-12-2022 End: 01-12-2022 ambulatory JALEN FILIE Facility:UNKNOWN Start: 12-15-2021 End: 12-15-2021 ambulatory JALEN PENNE Facility:UNKNOWN Start: 12-09-2021 ambulatory JALENMARIO DELAROSA Facility :UNKNOWN Start: 12-09-2021 Encounter for other preprocedural examination JALENMARIO DELAROSA Facility:UNKNOWN Start: 11-25-2021 End: 11-25-2021 Subsequent hospital visit by physician Mary Ayala F30 (I-Stat) Work Phone: Radiology Start: 11-20-2021 Orders Only Sharon Shirley son RENAL SOCIAL WORKERConchaLACROSSE COACH Work Phone: Hematology/Oncology Comment on above: Encounter for screen ing mammogram for breast cancer (Primary Dx) Start: 09-23-2021 Orders Only Paco aleman MD Work Phone: Vascular Surg Dept Comment on above: Renal artery aneurys m (HCC) (Primary Dx); Abdominal aortic aneurysm without rupture (HCC) Start: 09-21-2021 Telephone encounter Paco Ramirez MD Work Phone: NOC Comment on above: Appointment Start: 12-04-2020 End: 12-04-2020 Subsequent hospital visit by physician Xr [facility] [employer] General Radiology Comment on above: S/P total knee arthr oplasty, left [Z96.652] Start: 04-01-2020 End: 04-01-2020 Subsequent hospital visit by physician Xr [facility] Rej Work Phone: Radiology Comment on above: post op Start: 12-20-2019 End: 12-20-2019 Subsequent hospital visit by physician Xr [facility] [employer] General Radiology Comment on above: Primary osteoarthrit is of left knee [M17.12] Procedures Date Procedure Procedure Detail Performing Clinician Start: 06-30-2023 STATUS COVID-19/FLU Obie chemo Warren NP Work Phone: Start: 04-16-2022 JAKE SCREENING W JOE An vania Saldivar RENAL SOCIAL WORKER.LACROSSE COACH Work Phone: Start: 04-16-2022 Mammography Sharon Sanderson parulross RENAL SOCIAL WORKER.LACROSSE COACH Work Phone: Start: 11-25-2021 Ct angio abd&plvis cntrst mtrl w/wo cntrst img Paco Ramirez MD Work Phone: Start: 11-25-2021 Creatinine [Mass/vol ume] in Serum or Plasma [facility] Provider Start: 12-04-2020 Radiologic exam knee complete 4/more views Taz Dean DO Work Phone: Start: 11-24-2020 Mammography Paco marroquin MD Work Phone: Start: 11-21-2020 Adult depression screening assessment Paco Ramirez MD Work Phone: Start: 11-05-2020 Colonoscopy Samia Warren NP Work Phone: Start: 04-01-2020 Radiologic examinati on knee 3 views Gavin GOODWIN-C Work Phone: Start: 12-20-2019 Radiologic exam knee complete 4/more views Gavin GOODWIN-Angeli Work Phone: Start: 12-05-2019 Antibody screen Start: 12-02-2017 History of mastectomy S/P part ial mastectomy, right Paco Ramirez MD Work Phone: Start: 09-06-2012 Lipid 1996 panel - S compa or Plasma [facility] Plan of Treatment Date Care Activity Detail Author Start: 11-05-2030 Screening for malign ant neoplasm of colon [facility] Start: 04-26-2024 Medicare Annual Well ness (AWV) Medicare Annual Wellness (AWV) [facility] Start: 04-24-2024 End: 04-24-2024 Patient encounter procedure 04/24/2024 1:00 PM EST Office Visit [facility] [address] [place] [id number] Gonsalo Hubbard MD [address] [place] [address] [facility] Start: 11-25-2023 DIABETES SCREEN [facility] Start: 11-25-2023 Diabetes Screening Diabetes Screenin g [facility] Start: 04-16-2023 BP CONTROLLED (<130/80) BP CONTROLLE D (<130/80) [facility] Start: 04-16-2023 End: 05-16-2023 JAKE SCREENING JAKE SCREENING Radiology Routine Encounter for screening mammogram for breast cancer Expected: 04/16/2023, Expires: 05/16/2023 [facility] Work Phone: Comment on above: Expected: 04/16/2023 , Expires: 05/16/2023 Start: 04-16-2023 Mammography [facility] Start: 01-14-2023 Covid-19 Vaccine () Covid-19 Vaccine () [facility] Start: 01-14-2023 Influenza vaccination Influenza Vacc ine (#1) [facility] Start: 05-16-2022 Advance Directive Discussion Advance Directive Discussion [facility] Start: 05-16-2022 Depression Assessment Depression Ass essment [facility] Start: 01-14-2022 Influenza vaccination INFLUENZA (#1) [facility] Start: 11-24-2021 Mammography MAMMOGRAM [facility] Start: 11-21-2021 Adult depression screening assessment DEPRESSION SCREENING [facility] Start: 09-23-2021 End: 11-23-2021 CREATININE BLD CREATININE BLD Lab Routine Renal artery aneurysm (HCC) Expected: 09/23/2021, Expires: 11/23/2021 [facility] Work Phone: Comment on above: Expected: 09/23/2021 , Expires: 11/23/2021 Start: 08-08-2021 COVID-19 VACCINE (3 - Booster for Moderna series) COVID-19 VACCINE (3 - Booster for Moderna series) [facility] Start: 07-11-2021 COVID-19 VACCINE (4 - Booster for Moderna series) COVID-19 VACCINE (4 - Booster for Moderna series) [facility] Start: 05-16-2021 ADVANCE DIRECTIVE DISCUSSION ADVANCE DIRECTIVE DISCUSSION [facility] Start: 05-16-2021 DEPRESSION ASSESSMENT DEPRESSION ASS ESSMENT [facility] Start: 09-06-2017 Lipid 1996 panel - S compa or Plasma Lipid Screening [facility] Start: 09-06-2017 LIPID SCREEN LIPID SCREEN [facility] Start: 2015 BONE DENSITY BONE DENSITY [facility] Start: 2015 Bone Density Screening Bone Density Screening [facility] Start: 2015 PNEUMOCOCCAL: 65+ (1 - PCV) PNEUMOCOCCAL: 65+ (1 - PCV) [facility] Start: 2015 PNEUMOVAX AGE 65 AND OVER WITH 5YR LOOKBACK (#1) PNEUMOVAX AGE 65 AND OVER WITH 5YR LOOKBACK (#1) [facility] Start: 11-08-2014 Urine microalbumin profile DTaP,Tdap,Td Vaccine (1 - Tdap) [facility] Start: 2010 RSV Vaccine (1 - 1-d ose 60+ series) RSV Vaccine (1 - 1-dose 60+ series) [facility] Start: 2000 SHINGRIX VACCINE (1 of 2) SHINGRIX VACCINE (1 of 2) [facility] Start: 1995 COLOGUARD (FIT-DNA) COLOGUARD (FIT-D NA) [facility] Start: 1995 Colonoscopy COLONOSCOPY [facility] Start: 1995 COLORECTAL CANCER SCREENING COLORECTAL CANCER SCREENING [facility] Start: [address] COLONOGRAPHY [facility] Start: 1995 FECAL OCCULT BLOOD FECAL OCCULT BLOO D [facility] Start: 1995 SIGMOIDOSCOPY SIGMOIDOSCOPY [facility] Start: 1969 Urine microalbumin profile DTAP,TDAP,TD (1 - Tdap) [facility] Start: 1968 ANNUAL PCP TEAM OLEOMARGARINE MAKER LOIS DISEASE VISIT ANNUAL PCP TEAM CHRONIC DISEASE VISIT [facility] Start: 1968 BP CONTROLLED (<130/80) BP CONTROLLE D (<130/80) [facility] Start: 1968 HEPATITIS C SCREENING HEPATITIS C SC DAREN [facility] Start: 1950 Screening for malign ant neoplasm of colon [facility] End: 10-23-2022 Ct angio abd&plvis cntrst mtrl w/wo cntrst img CTA ABD/PEL WO/W IVCON Radiology Routine Renal artery aneurysm (HCC) 1 Occurrences starting 09/23/2021 until 10/23/2022 [facility] Work Phone: Comment on above: 1 Occurrences starti ng 09/23/2021 until 10/23/2022 End: 12-20-2022 Screening mammography bi 2-view breast inc cad JAKE SCREENING Radiology Routine Encounter for screening mammogram for breast cancer 1 Occurrences starting 11/20/2021 until 12/20/2022 [facility] Work Phone: Comment on above: 1 Occurrences starti ng 11/20/2021 until 12/20/2022 [facility] Immunizations Immunization Date Immunization Notes Care Provider Sugey hogue 03-19-2023 Influenza, Seasonal, Quadrivalent, Adjuvanted Samia Chadd-Maria Esther MECHANICAL ENGINEERING PROFESSOR Work Phone: [facility] 03-30-2022 SARS-COV-2 (COVID-19 ) vaccine, mRNA, spike protein, LNP, bivalent, PF Samia Chadd-Maria Esther MECHANICAL ENGINEERING PROFESSOR Work Phone: [facility] 03-12-2022 Influenza, High-dose Seasonal, Quadrivalent, Preservative Free Samia Chadd-Maria Esther MECHANICAL ENGINEERING PROFESSOR Work Phone: [facility] 03-12-2022 influenza virus vacc ine, unspecified formulation [facility] 02-12-2021 Influenza, High-dose Seasonal, Quadrivalent, Preservative Free Samia Chadd-Maria Esther MECHANICAL ENGINEERING PROFESSOR Work Phone: [facility] 07-21-2020 COVID-19 vaccine, fu ll dose (MODERNA) Ct (I-Stat) Work Phone: [facility] 06-23-2020 COVID-19 vaccine, fu ll dose (MODERNA) Ct (I-Stat) Work Phone: [facility] 01-17-2020 influenza, high dose seasonal, preservative-free Samia Chadd-Maria Esther MECHANICAL ENGINEERING PROFESSOR Work Phone: [facility] 12-24-2019 zoster vaccine recombinant Samia Sanz-Maria Esther MECHANICAL ENGINEERING PROFESSOR Work Phone: [facility] 10-16-2019 zoster vaccine recombinant Samia Chadd-Maria Esther MECHANICAL ENGINEERING PROFESSOR Work Phone: [facility] 03-19-2019 pneumococcal polysaccharide vaccine, 23 valent Samia Chadd-Maria Esther MECHANICAL ENGINEERING PROFESSOR Work Phone: [facility] 03-01-2017 pneumococcal polysaccharide vaccine, 23 valent Samia Chadd-Maria Esther MECHANICAL ENGINEERING PROFESSOR Work Phone: [facility] 02-13-2017 influenza, injectabl e, quadrivalent, preservative free Samia Sanz-Maria Esther MECHANICAL ENGINEERING PROFESSOR Work Phone: [facility] 12-06-2016 hepatitis A and hepa titis B vaccine Samia Chadd-Maria Esther MECHANICAL ENGINEERING PROFESSOR Work Phone: [facility] 05-28-2016 hepatitis A and hepa titis B vaccine Samia Chadd-Maria Esther MECHANICAL ENGINEERING PROFESSOR Work Phone: [facility] 04-27-2016 hepatitis A and hepa titis B vaccine Samia Chadd-Maria Esther MECHANICAL ENGINEERING PROFESSOR Work Phone: [facility] 04-27-2016 typhoid capsular polysaccharide vaccine Samia Chadd-Maria Esther MECHANICAL ENGINEERING PROFESSOR Work Phone: [facility] 03-24-2015 pneumococcal conjuga te vaccine, 13 valent Samia Chadd-Maria Esther MECHANICAL ENGINEERING PROFESSOR Work Phone: [facility] 03-20-2015 influenza, injectabl e, quadrivalent, preservative free Samia Chadd-Maria Esther MECHANICAL ENGINEERING PROFESSOR Work Phone: [facility] 11-07-2014 tetanus and diphther ia toxoids, adsorbed, preservative free, for adult use (2 Lf of tetanus toxoid and 2 Lf of diphtheria toxoid) Samiaelliot Sanz-Maria Esther MECHANICAL ENGINEERING PROFESSOR Work Phone: [facility] 01-08-2013 zoster vaccine, live Samia Chadd-Maria Esther MECHANICAL ENGINEERING PROFESSOR Work Phone: [facility] Payers Date Payer Category Payer Self-pay 2021 Medicare AETNA MEDICARE A ETNA MEDICARE PPO [id number] 2021-Present [phone] [address] [place] [address] PPO [id number] 2021 Private Health Insurance 101 [id number] 2019 Medicare AETNA MEDICARE A ETNA MEDICARE PPO [id number] 2019-Present [phone] [address] [place] [address] PPO [id number] 2019 Medicare [id number] 1950 Unknown [id number] 93 1950 Unknown [id number] 93 1950 Unknown [id number] 93 1950 Unknown [id number] 93 1950 Unknown [id number] 93 1950 Unknown [id number] 259 1950 Unknown [id number] 259 1950 Unknown [id number] 259 1950 Unknown [id number] 259 1950 Unknown [id number] 259 Unknown [id number] 31 Social History Date Type Detail Facility Start: 05-01-2012 End: 11-29-2022 Tobacco smoking status NHIS Never smoked tobacco [facility] Start: 12-05-2019 End: 11-24-2020 Alcohol intake Current drinker of alcohol (finding) [facility] Start: 11-26-2019 End: 12-05-2019 History SDOH Alcohol Frequency 5 [facility] Start: 11-26-2019 End: 12-05-2019 History SDOH Alcohol Std Drinks 1 [facility] Start: 11-26-2019 History SDOH Alcohol Comment A GLASS OF WINE ALMOST EVERY NIGHT BEFORE BED [facility] Start: 12-05-2019 History SDOH Transport [facility] Start: 1950 Sex Assigned At Not on file [facility] Start: 09-12-2021 End: 09-22-2021 Exposure to SARS-CoV-2 (event) Unable to assess [facility] Start: 11-20-2019 End: 04-16-2022 Exposure to SARS-CoV-2 (event) Not sure [facility] Start: 05-01-2012 End: 11-29-2022 Tobacco use and exposure Smokeless tobacco non-user [facility] Start: 11-26-2019 End: 04-26-2023 History of [facility] Work Phone: Start: 11-26-2019 End: 04-26-2023 Alcohol Use Disorder Identification Test - Consumption [AUDIT-C] [facility] Work Phone: How often to you hav e a drink containing alcohol? 4 or more times a week [facility] Work Phone: How many standard dr inks containing alcohol do you have on a typical day? 1 or 2 [facility] Work Phone: How often do you hav e 6 or more drinks on 1 occasion? Never [facility] Work Phone: How hard is it for y ou to pay for the very basics like food, housing, medical care, and heating Not hard at all [facility] (I/We) worried kev er (my/our) food would run out before (I/we) got money to buy more. Never true [facility] Start: 06-30-2023 Alcohol intake Ex-drinker (finding) [facility] Start: 01-15-2023 Alcohol Comment caffeine: 1-2 cups per day of coffee [facility] Start: 1950 Sex Assigned At Female [facility] Start: 12-07-2022 Gender identity Identifies as female gender (finding) [facility] Medical Equipment Procedure Code Equipment Code Equipment Origin al Text Equipment Identifier Dates Cement Simplex P Bone Radiopaque Full Dose Sterile - [id number] Start: 12-05-2019 Dunlap Cv 6x6in Thk1.65mm Ptfe - [id number] Start: 09-12-2012 Insert Persona 6 -9 C-D Polyethylene 10mm Articular Posterior Stabilized - [id number] Start: 12-05-2019 Component 29mm A ll Poly Patellar Psn - [id number] Start: 12-05-2019 Component Person a 6 Narrow Cocr Femoral Cemented Posterior Stabilize Knee - [id number] Start: 12-05-2019 Baseplate Person a 5d D Tivanium Tibial Cemented Stem Knee Left - [id number] Start: 12-05-2019 Clinical Notes 12-20-2019 to 06-30-2023 Samia Warren NP - 06/30/2023 9:45 AM Micheal Saldivar APRN.LACROSSE COACH - 04/16/2022 12:30 PM Alba Leblanc MA - 04/16/2022 11:51 AM RT Levi(Mason) - 04/16/2022 11:10 AM EST Note Date & Type Note Facility 06-30-2023 History of Present illness Narrative Gilda Sorto is a 73 y.o. female presents for Cough and Nasal Congestion HPI: HPI Pt presents with a cough and runny nose. Loss of voice. When she takes a deep breathe or coughs her chest hurts. This started a few days ago. Headache and ears are crackling. is getting chemo and her son is getting an ablation. Exposed to illness Tuesday evening. SUBJECTIVE: MEDICATIONS: Current Outpatient Medications Medication Instructions Alum Hydroxide-Mag Trisilicate (Gaviscon) 80-14.2 MG chewable tablet 1 tablet, Oral, As needed citalopram (CELEXA) 10 mg, Oral, Every 24 hours eye vitamin supplement (Ocuvite Eye Health Formula) capsule 1 capsule, Oral, Daily fluticasone (Flonase) 50 MCG/ACT nasal spray USE 2 SPRAYS IN EACH NOSTRIL ONCE DAILY NEEDED levocetirizine (XYZAL) 5 mg, Oral, Every 24 hours LORazepam (ATIVAN) 0.5 mg, Oral, Every 8 hours PRN MISC NATURAL PRODUCTS PO 1 each, Oral, As needed, CBD Gummies Multiple Vitamin (Multivitamin Adult) tablet 1 tablet, Oral, Daily omeprazole (PRILOSEC) 20 mg, Oral, Daily before breakfast triamterene-hydroCHLOROthiazide (Dyazide) 37.5-25 MG capsule 1 capsule, Oral, Daily zolpidem (AMBIEN) 5 mg, Oral, Every 24 hours ALLERGIES: Allergies Allergen Reactions Claus Inhibitors Angioedema Doxycycline Rash Nitrofurantoin GI intolerance Sulfa Antibiotics Unknown Other Reaction(s): Difficulty Breathing SOCIAL HISTORY: Social History Tobacco Use Smoking status: Never Smokeless tobacco: Never Vaping Use Vaping Use: Never used Substance Use Topics Alcohol use: Not Currently Alcohol/week: 1.0 standard drink of alcohol Types: 1 Glasses of wine per week Comment: caffeine: 1-2 cups per day of coffee Drug use: Never Depression: Not at risk (04/26/2023) PHQ-2 PHQ-2 Score: 0 MEDICAL HISTORY Past Medical History: Diagnosis Date Anxiety Appendicitis Arthritis Breast cancer (CMS/HCC) Cataract Chicken pox Essential hypertension, benign. Hyperplasia of renal artery Family history of cancer Hallux malleus Hyperplasia of renal artery (CMS/HCC) Hypertension (CMS/HCC) Measles Primary hyperparathyroidism (CMS/HCC) S/P partial mastectomy, right 12/02/2017 Added automatically from request for surgery [id number] Tear of lateral meniscus of knee 01/06/2018 Added automatically from request for surgery [id number] Tonsillitis REVIEW OF SYMPTOMS: Review of Systems Constitutional: Positive for fatigue. Negative for fever. HENT: Positive for congestion, postnasal drip, rhinorrhea, sore throat and voice change. Respiratory: Positive for cough. Neurological: Positive for headaches. OBJECTIVE: Visit Vitals BP 128/80 Pulse 96 Temp 97.1 F Wt 198 lb SpO2 97% BMI 35.07 kg/m Smoking Status Never BSA 2 m Physical Exam Constitutional: Appearance: She is obese. HENT: Right Ear: Tympanic membrane normal. Left Ear: Tympanic membrane normal. Ears: Comments: hoarse Nose: Congestion present. Mouth/Throat: Mouth: Mucous membranes are moist. Cardiovascular: Rate and Rhythm: Normal rate and regular rhythm. Pulmonary: Effort: Pulmonary effort is normal. Breath sounds: Normal breath sounds. Musculoskeletal: Cervical back: Neck supple. Neurological: Mental Status: She is alert. ASSESSMENT AND PLAN: Assessment/Plan Diagnosis Plan 1. Viral upper respiratory tract infection Reviewed negative swab in office today. She continues to use flonase. Try to use nettipot to help clean out sinuses. She is contagious. Avoid exposure to vulnerable people. Discussed typical course of URI. Avoid antibiotics until it has been 7-10 days since onset of symptoms. Discussed supportive care including netti pot, coricidin, OTC medications. Call if no improvement. Let us know if hoarseness persists outside acute illness. 2. Cough, unspecified type STATUS COVID-19/FLU 3. Insomnia, unspecified type 4. Morbid obesity (CMS/HCC) 5. History of breast cancer No follow-ups on file. documented in this encounter [facility] 04-12-2023 Note HNO ID: [id number] Author: Kayla Mata MD Service: ? Author Type: Physician Type: Progress Notes Filed: 04/12/2023 4:51 PM Note Text: PLASTIC SURGERY DEPARTMENT [facility] Hand Surgery Note [x] New referred by []self []physician.......... [] Follow-up CC: ..bilateral wrist/hand pain............ ? HPI: Gilda is a 72 year old female who presents today for bilateral wrist and hand pain. Pain is mostly at the base of the thumb. She has had an injection to the left hand about 11 years ago, which helped with her pain. Job:.retired......... Recreational activities with hands: .beading....... Dominant Hand: right [x] left [] Date onset symptoms: .....years..... Symptoms location -[] RIGHT [] worse -[] LEFT [x] worse Fingers 1[x] 2[] 3[] 4[] 5 [] 1[x] 2[] 3[] 4[] 5 []. []Tingling []Numbness [x]Pain Symptoms location -[] RIGHT [] worse -[] LEFT [] worse Hand [x]Radial []volar [] ulnar [] dorsal [x]Radial []volar [] ulnar [] dorsal wrist []Radial []volar [] ulnar [] dorsal []Radial []volar [] ulnar [] dorsal forearm []Radial []volar [] ulnar [] dorsal []Radial []volar [] ulnar [] dorsal elbow []Radial []volar [] ulnar [] dorsal []Radial []volar [] ulnar [] dorsal arm [] [] shoulder [] [] neck [] [] []Tingling []Numbness [x]Pain Overall PAIN Now 0[] 1[] 2[] 3[x] 4[] 5[] 6[] 7[] 8[] 9[] 10[] Average 0[] 1[] 2[] 3[] 4[] 5[] 6[] 7[] 8[] 9[] 10[] Rest 0[] 1[] 2[] 3[] 4[] 5[] 6[] 7[] 8[] 9[] 10[] Function 0[] 1[] 2[] 3[] 4[] 5[] 6[] 7[] 8[] 9[] 10[] Quality []sharp []dull []aching []sore []taut []pulled []torsion []shooting []pricking []pressing []lacerating []pinching []squeezing []drilling []spasm [] throbbing []burning []cramping []cutting []heavy []itchy []radiating [] electrical []stinging [] cold intolerance How frequently during the day (%): ..100......... Night Symptoms [] Associated Signs/Symptoms Swelling [] Stiffness [x] Weakness [] Prior Trauma? [x]No []Yes Pain? []same []better []worse over time Intervention/Prior Treatment: []no [x]yes [x]Decrease activity level and using heat/ ice []PT/OT,chiropractic treatments, or medically directed home exercise program for..........weeks in the last..........months (date started:...........) []Medications [x]Steroid injection []Splint/cast []Surgery............... IMPROVEMENT WITH PREVIOUS STEROID INJECTION: NO [] YES [x] ............% []R []L []R=L []R>L []R Symptoms improved: Tingling [] Numbness [] Pain [x] ANY TINGLING OR NUMBNESS IN THE FEET: NO [] YES [] .............. No results found for: HBA1C Last 10 Encounter BP Readings: Date: BP: 04/16/2022 117/60 11/25/2021 139/89 11/24/2020 130/71 12/05/2019 111/63 11/26/2019 129/61 11/22/2019 123/64 11/22/2019 116/51 11/01/2019 134/57 11/14/2018 134/62 11/01/2018 136/77 CBC Latest Ref Rng AND Units 09/15/2012 11/26/2019 12/06/2019 WBC 3.70 - 11.00 k/uL 8.86 5.18 9.31 RBC 3.90 - 5.20 m/uL 2.86(L) 4.52 3.10(L) HEMOGLOBIN 11.5 - 15.5 g/dL 8.5(L) 14.0 9.5(L) HEMOGLOBIN TOTAL, WHOLE BLOOD 11.5 - 15.5 g/dL - - - HEMATOCRIT 36.0 - 46.0 % 26.9(L) 44.6 30.3(L) MCV 80.0 - 100.0 fL 94.1 98.7 97.7 MCH 26.0 - 34.0 pG 29.7 31.0 30.6 MCHC 30.5 - 36.0 g/dL 31.6 31.4 31.4 RDW-CV 11.5 - 15.0 % 13.4 12.8 12.5 PLATELETS 150 - 400 k/uL 164 259 188 MPV 9.0 - 12.7 fL 9.5 10.2 10.2 BASO% % - 0.8 - ABS NEUT (ANC) 1.45 - 7.50 k/uL - 3.16 - ABS LYMPH 1.00 - 4.00 k/uL - 1.29 - ABS MONO <0.87 k/uL - 0.41 - ABS EOSIN <0.46 k/uL - 0.26 - ABS BASO <0.11 k/uL - 0.04 - DIFF TYPE - - Auto Diff - CMP Latest Ref Rng AND Units 12/08/2019 11/24/2020 11/25/2021 SODIUM 136 - 144 mmol/L 138 138 - POTASSIUM 3.7 - 5.1 mmol/L 4.8 4.5 - CHLORIDE 97 - 105 mmol/L 101 100 - CO2 22 - 30 mmol/L 28 28 - GLUCOSE 74 - 99 mg/dL 100(H) 111(H) - BUN 7 - 21 mg/dL 16 19 - CREATININE 0.58 - 0.96 mg/dL 1.00(H) 1.34(H) - CREATININE (POCT) 0.7 - 1.4 mg/dL - 1.30 1.20 EGFR-ALL OTHER RACES . 55 39 - EGFR- - >60 47 - PROTEIN, TOTAL 6.3 - 8.0 g/dL - - - ALBUMIN 3.9 - 4.9 g/dL - - - CALCIUM, 24 HR URINE 100 - 300 mg/24 hr - - - CALCIUM, TOTAL 8.5 - 10.2 mg/dL 8.6 9.2 - BILIRUBIN, TOTAL 0.2 - 1.3 mg/dL - - - AST 13 - 35 U/L - - - ALT 7 - 38 U/L - - - ALKALINE PHOSPHATASE 34 - 123 U/L - - - YES NO Smoking, vaping, nicotine, cannabis [] [x] Cigarettes/ day.... ? Hormone replacement (contraceptive, post menopause hormone treatment) [] [x] Medication.... Diabetes [] [x] []Type 1? []Type 2 ?Last A1c:..... Systemic inflammatory diseases [] [x] []RA []Gout []Other... Hypertension [] [x] Meds:....... Heart disease or pacemaker [] [x] ............ Family history blood clots [] [x] Personal history blood clots [] [x] Anticoagulation (aspirin, coumadin, xarelto,etc) [] [x] What........... Reason:........... Immunosuppressants (steroid, biologic meds infusion, etc) [] [x] What........... Reason:........... Upp (more content not included)... [facility] 04-16-2022 Note HNO ID: [id number] Author: Sharon Saldivar APRN.LACROSSE COACH Service: ? Author Type: Nurse Practitioner Type: Progress Notes Filed: 04/16/2022 2:06 PM Note Text: ATTENDING PHYSICIAN: Dr. 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 She is presenting today for routine follow up. CURRENT SYSTEMIC THERAPY FOR BREAST CANCER: None PAST THERAPY FOR BREAST CANCER: Right partial mastectomy with SLNBx - 11/27/2007 Adjuvant TC x 4 - 02/29/2008 Radiation therapy - late 2007 Following lung nodules annually INTERVAL HISTORY: Gilda presents today with her and reports that she is doing well. She has no physical concerns today. She denies headaches, diplopia, cough, shortness of breath, bone pain, new lumps/bumps. REVIEW OF SYSTEMS: The remainder of the review of systems is unremarkable. PHYSICAL EXAMINATION: Physical exam listed below was completed in it's entirety today, April 16, 2022 and is unchanged from November 24, 2020 except where noted. General appearance: well appearing, alert, in no acute distress Skin: Skin color, texture, turgor normal, no rashes or lesions Head: unremarkable Neck: Supple, no adenopathy Lungs: lungs clear to auscultation, no wheezing or rhonchi Heart: Negative, RRR Breasts: Right breast exam reveals Partial mastectomy surgical scar, there is no axillary adenopathy, concerning skin changes or palpable lesions. Left breast inspection negative, again there is no axillary adenopathy, concerning skin changes or palpable lesions. Abdomen: Normal abdominal exam, Abdomen soft, non-tender. No masses, organomegaly Extremities:Extremities normal. No deformities or edema. LABS/IMAGING: No labs done at the time of today's exam, mammogram done on 04/16/2022 was unremarkable. IMPRESSION: pT1bN0 triple negative invasive ductal carcinoma of the right breast, diagnosed in 10/2007. She is presenting today for routine follow up s/p right partial mastectomy, adjuvant chemotherapy and radiation currently under observation with no evidence of disease at the time of today's exam. PLAN: After evaluation and review of the ongoing treatment plan, the following referral/recommendations have been made. (Z12.31) Encounter for screening mammogram for breast cancer (primary encounter diagnosis) (C50.912, Z17.1) Stage 1 breast cancer, ER-, left (HCC) - Encouraged monthly self breast exams - Mammogram Due: 04/2023 - Follow up with myself in 1 year per patient preference - Encouraged to call with any questions or concerns Some elements of all sections of this documentation were copied from my previous note of November 24, 2020 and have been re-examined and updated where appropriate. All elements reflect the medical decision making of today, April 16, 2022. I spent a total of 30 minutes on the date of the service which included preparing to see the patient, [id number] patient care, completing clinical documentation, performing a medically appropriate examination, counseling and educating the patient/family/caregiver, ordering medications, tests, or procedures, communicating with other HCPs (not separately reported), independently interpreting results (not separately reported), communicating results to the patient/family/caregiver, and care coordination (not separately reported). Sharon Saldivar APRN.[facility] 04-16-2022 Note HNO ID: [id number] Author: RT Mario(R) Service: ? Author Type: Technologist Type: Progress Notes Filed: 04/16/2022 11:39 AM Note Text: Radiology Service Progress Note PATIENT NAME: Gilda Sorto DATE OF SERVICE: April 16, 2022 TIME: 11:39 AM PATIENT IDENTITY VERIFICATION COMPLETED USING TWO (2) IDENTIFIERS: Name and Date of confirmed by patient verbally. FALL SCREENING: Has the patient had 2 falls in the last year or 1 fall with injury or currently using an Ambulatory Assistive Device (Walker, Cane, Wheelchair, Crutches, etc.)? No PATIENT GENDER DATA: Female. status: : No status: NO. PATIENT RELEVANT IMPLANT DATA REVIEWED: Yes RADIOLOGY DEPARTMENT: Mammography PERIPHERAL IV DATA: Not applicable SIGNED BY: RT Mario(R) April 16, 2022 11:39 AM [facility] 04-16-2022 History of Present illness Narrative ATTENDING PHYSICIAN: Dr. 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 She is presenting today for routine follow up. CURRENT SYSTEMIC THERAPY FOR BREAST CANCER: None PAST THERAPY FOR BREAST CANCER: Right partial mastectomy with SLNBx - 11/27/2007 Adjuvant TC x 4 - 02/29/2008 Radiation therapy - late 2007 Following lung nodules annually INTERVAL HISTORY: Gilda presents today with her and reports that she is doing well. She has no physical concerns today. She denies headaches, diplopia, cough, shortness of breath, bone pain, new lumps/bumps. REVIEW OF SYSTEMS: The remainder of the review of systems is unremarkable. PHYSICAL EXAMINATION: Physical exam listed below was completed in it's entirety today, April 16, 2022 and is unchanged from November 24, 2020 except where noted. General appearance: well appearing, alert, in no acute distress Skin: Skin color, texture, turgor normal, no rashes or lesions Head: unremarkable Neck: Supple, no adenopathy Lungs: lungs clear to auscultation, no wheezing or rhonchi Heart: Negative, RRR Breasts: Right breast exam reveals Partial mastectomy surgical scar, there is no axillary adenopathy, concerning skin changes or palpable lesions. Left breast inspection negative, again there is no axillary adenopathy, concerning skin changes or palpable lesions. Abdomen: Normal abdominal exam, Abdomen soft, non-tender. No masses, organomegaly Extremities:Extremities normal. No deformities or edema. LABS/IMAGING: No labs done at the time of today's exam, mammogram done on 04/16/2022 was unremarkable. IMPRESSION: pT1bN0 triple negative invasive ductal carcinoma of the right breast, diagnosed in 10/2007. She is presenting today for routine follow up s/p right partial mastectomy, adjuvant chemotherapy and radiation currently under observation with no evidence of disease at the time of today's exam. PLAN: After evaluation and review of the ongoing treatment plan, the following referral/recommendations have been made. (Z12.31) Encounter for screening mammogram for breast cancer (primary encounter diagnosis) (C50.912, Z17.1) Stage 1 breast cancer, ER-, left (HCC) - Encouraged monthly self breast exams - Mammogram Due: 04/2023 - Follow up with myself in 1 year per patient preference - Encouraged to call with any questions or concerns Some elements of all sections of this documentation were copied from my previous note of November 24, 2020 and have been re-examined and updated where appropriate. All elements reflect the medical decision making of today, April 16, 2022. I spent a total of 30 minutes on the date of the service which included preparing to see the patient, [id number] patient care, completing clinical documentation, performing a medically appropriate examination, counseling and educating the patient/family/caregiver, ordering medications, tests, or procedures, communicating with other HCPs (not separately reported), independently interpreting results (not separately reported), communicating results to the patient/family/caregiver, and care coordination (not separately reported). Sharon Saldivar APRN.CNP documented in this encounter [facility] 04-16-2022 Nurse Note Additional intake questions: Has the patient had fever, nausea, vomiting, diarrhea, constipation, fatigue for > 1 week? No Does the patient have a decreased appetite? No Does patient want to see a [employer]? No (yes to any of above refer patient to schedulers for dietitian appointment) ) Does patient have any new or increased numbness or tingling of extremities? No Is patient interested in fertility information? No Does patient need any prescription refills? No Does patient have an advanced directive in place? Yes, copies are in Epic documented in this encounter [facility] 04-16-2022 Miscellaneous Notes April 16, 2022 PID: [id number] Gilda Sorto [address] [place] [address] Dear Ms. Sorto, We are pleased to inform you that the results of your recent breast imaging exam on 04/16/2022 are normal. Early detection of cancer is very important. We also understand recommendations regarding breast cancer screening are controversial. Please discuss with your primary care provider which strategy is best for you and whether a mammogram is right for you. Your imaging studies and report will be kept on file at [facility] as part of your permanent medical record and are available for your continuing care. Thank you for allowing us to help in meeting your health care needs. Sincerely, Dr. Perez Interpreting Radiologist [facility] (Normal over 40) documented in this encounter [facility] 04-16-2022 History of Present illness Narrative Radiology Service Progress Note PATIENT NAME: Gilda Sorto DATE OF SERVICE: April 16, 2022 TIME: 11:39 AM PATIENT IDENTITY VERIFICATION COMPLETED USING TWO (2) IDENTIFIERS: Name and Date of confirmed by patient verbally. FALL SCREENING: Has the patient had 2 falls in the last year or 1 fall with injury or currently using an Ambulatory Assistive Device (Walker, Cane, Wheelchair, Crutches, etc.)? No PATIENT GENDER DATA: Female. status: : No status: NO. PATIENT RELEVANT IMPLANT DATA REVIEWED: Yes RADIOLOGY DEPARTMENT: Mammography PERIPHERAL IV DATA: Not applicable SIGNED BY: RT Mario(R) April 16, 2022 11:39 AM documented in this encounter [facility] 11-25-2021 History of Present illness Narrative Radiology Service Progress Note PATIENT NAME: Gilda Sorto DATE OF SERVICE: November 25, 2021 TIME: 12:30 PM PATIENT IDENTITY VERIFICATION COMPLETED USING TWO (2) IDENTIFIERS: Name and Date of confirmed by patient verbally and Name and Date of confirmed by identification band. FALL SCREENING: Has the patient had 2 falls in the last year or 1 fall with injury or currently using an Ambulatory Assistive Device (Walker, Cane, Wheelchair, Crutches, etc.)? No PATIENT GENDER DATA: Female. status: : No status: NO. PATIENT RELEVANT IMPLANT DATA REVIEWED: Yes RADIOLOGY DEPARTMENT: CT; Exam(s) Completed: Abdomen/Pelvis PERIPHERAL IV DATA: Site assessment: Clean,Dry and Intact, Site disposition Discontinued SIGNED BY: RT Wilfredo(R) November 25, 2021 12:30 PM Radiology Service Progress Note DATE OF SERVICE: November 25, 2021 TIME: 12:06 PM PATIENT WEIGHT: 190LBS PATIENT IDENTITY VERIFICATION COMPLETED USING TWO (2) STANDARD IDENTIFIERS: Name and Date of confirmed by patient verbally and Name and Date of confirmed by identification band. FALL SCREENING: Has the patient had 2 falls in the last year or 1 fall with injury or currently using an Ambulatory Assistive Device (Walker, Cane, Wheelchair, Crutches, etc.)? No PATIENT GENDER DATA: Female. status: : No status: NO. ALLERGIES: Reviewed and unchanged CONTRAST ALLERGY: No EXAM: CT -CONTRAST INDUCED NEPHROPATHY RISK FACTORS: Patient age > 60 years CREATININE: Creatinine Date Value Ref Range Status 11/24/2020 1.34 (H) 0.58 - 0.96 mg/dL Final Creatinine (POCT) Date Value Ref Range Status 11/25/2021 1.20 0.7 - 1.4 mg/dL Final 11/24/2020 1.30 0.7 - 1.4 mg/dL Final eGFR (POCT) Date Value Ref Range Status 11/25/2021 48 mL/min/1.73 m2 Final eGFR- (POCT) Date Value Ref Range Status 11/24/2020 49 mL/min/1.73 m2 Final P.O.C.T. RESULTS: POC done: Yes, See Lab Tab November 25, 2021 TREATMENT: N/A and No Hydration needed. IV SITE: Ambulatory: A peripheral IV was started in the Left antecubital site with a Angio cath: 20 gauge. and A Saline lock was inserted per protocol. IV SITE APPEARANCE: Clean,Dry and Intact SIGNATURE: Carrie Ortiz RN PATIENT NAME: Gilda Sorto DATE: November 25, 2021 TIME: 12:06 PM documented in this encounter [facility] 09-21-2021 Miscellaneous Notes Mrs Sorto called and she would like to schedule her yearly follow up appointment with DR. Ramirez [place] and cell number: [phone] Kind Regards, Nima Wilkinson documented in this encounter [facility] 04-29-2021 Note HISTORY: Bone densit y screening. COMPARISON: None available PROCEDURE: Imaging of the lumbar spine and bilateral hips was obtained for bone density evaluation. FINDINGS: REGION BMD (g/cm??) YOUNG ADULT T-SCORE AGE-MATCHED Z-SCORE LEFT NECK 0.723 -1.1 0.7 RIGHT NECK 0.756 -0.8 1.0 LUMBAR 1.123 0.7 2.9 The mean BMD and corresponding T-score listed above indicate: Osteopenia and places the patient at a mild to moderate increased risk for fracture. There may be a future risk of developing osteoporosis. Recommend follow-up exam in 1 year, sooner as clinically necessary. Comment: The T-score is the primary focus of the interpretation of a patient???s bone mineral density measurement. The T-score is the number of standard deviations and individual is above or below the mean value for a young female having normal bone mass. The WHO defines osteoporosis based on the T-score value: +1.0 to -0.9 : Normal bone mass -1.0 to -2.5 : Osteopenia and thus may be at future risk of fracture. -2.6 to -5.0 : Osteoporosis and at significantly increased risk of fracture. IMPRESSION: OSTEOPENIA : ONE YEAR FOLLOW-UP RECOMMENDED Report reported and signed by Gonsalo Alvarez on 04/29/2021 1247 [facility] 04-01-2020 History of Present illness Narrative Radiology Service Progress Note PATIENT NAME: Gilda Sorto DATE OF SERVICE: April 01, 2020 TIME: 1:04 PM PATIENT IDENTITY VERIFICATION COMPLETED USING TWO (2) IDENTIFIERS: Name and Date of confirmed by patient verbally. FALL SCREENING: Has the patient had 2 falls in the last year or 1 fall with injury or currently using an Ambulatory Assistive Device (Walker, Cane, Wheelchair, Crutches, etc.)? No PATIENT GENDER DATA: Female. status: : No status: NO. PATIENT RELEVANT IMPLANT DATA REVIEWED: Not Applicable RADIOLOGY DEPARTMENT: General X-ray: Exam(s) Completed: Lower Extremity X-Ray(s): Knee, AP / Lat / Merchant Left and Wt. Bearing: PERIPHERAL IV DATA: Not applicable SIGNED BY: Roma Reyez RT April 01, 2020 1:04 PM documented in this encounter [facility] 12-20-2019 History of Present illness Narrative Radiology Service Progress Note PATIENT NAME: Gilda Sorto DATE OF SERVICE: December 20, 2019 TIME: 12:45 PM PATIENT IDENTITY VERIFICATION COMPLETED USING TWO (2) IDENTIFIERS: Name and Date of confirmed by patient verbally. FALL SCREENING: Has the patient had 2 falls in the last year or 1 fall with injury or currently using an Ambulatory Assistive Device (Walker, Cane, Wheelchair, Crutches, etc.)? No PATIENT GENDER DATA: Female. status: : No status: NO. 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 Abdominal aortic aneurysm without rupture (HCC) Abdominal aneurysm without mention of rupture [facility] Diagnosis Encounter for screening mammogram for breast cancer- Primary [facility] Diagnosis Renal artery aneurysm (HCC) Aneurysm of renal artery [facility] Diagnosis Encounter for screening mammogram for breast cancer- Primary Stage 1 breast cancer, ER-, left (HCC) [facility] Diagnosis Encounter for screening mammogram for breast cancer [facility] Diagnosis S/P TKR (total knee replacement), left [facility] Diagnosis Primary osteoarthritis of left knee Primary localized osteoarthrosis, lower leg [facility] Diagnosis S/P total knee arthroplasty, left [facility] Diagnosis Viral upper respiratory tract infection- Primary Acute upper respiratory infections of unspecified site Cough, unspecified type Insomnia, unspecified type Morbid obesity (CMS/HCC) Morbid obesity History of breast cancer Personal history of malignant neoplasm of breast [facility] Diagnostic Procedure Only (Routine) - Pending Review Specialty Diagnoses / Procedures Referred By Elisha tang Referred To Contact [facility] Diagnoses Encounter for screening mammogram for breast cancer Procedures JAKE SCREENING SCREENING MAMMOGRAPHY BI 2-VIEW BREAST INC Sharon Gallagher, RUPERT.LACROSSE COACH [address] [place] [address] [facility] [address] [place] [address] Referral ID Status Reason Start Date Expiration Date Visits Requested Visits Authorized [id number] Pending Review Auto-Generat ed Referral 11/20/2021 12/20/2022 1 1 [facility] Diagnostic Procedure Only (Routine) - Pending Review Specialty Diagnoses / Procedures Referred By Elisha tang Referred To Contact [facility] Diagnoses Encounter for screening mammogram for breast cancer Procedures JAKE SCREENING SCREENING MAMMOGRAPHY BI 2-VIEW BREAST INC Sharon Gallagher APRN.CNP [address] [place] [address] [facility] [address] [facility] [place] [address] Referral ID Status Reason Start Date Expiration Date Visits Requested Visits Authorized [id number] Pending Review Auto-Generat ed Referral 04/16/2023 05/16/2023 1 1 [facility] Summary Purpose Family History No Family History Records FoundNo Family History Records FoundNo Family History Records FoundNo Family History Records FoundNo Family History Records FoundNo Family History Records Found Advance Directives No Advanced Directives Records FoundDocuments on File Type Date 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 Advance Directive(s) Advance Directive(s) 12/05/2019 6:09 AM Advance Directive(s) 04/20/2018 10:36 AM Advance Directive(s) 04/12/2018 2:54 PM Advance Directive(s) 09/18/2012 9:11 PM Documents on File Type Date Recorded 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 Advance Directive(s) Advance Directive(s) 12/05/2019 6:09 AM Advance Directive(s) 04/20/2018 10:36 AM Advance Directive(s) 04/12/2018 2:54 PM Advance Directive(s) 09/18/2012 9:11 PM Documents on File Type Date Recorded 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 Advance Directive(s) 04/12/2018 2:54 PM Advance Directive(s) 09/18/2012 9:11 PM Documents on File Type Date Recorded 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 Advance Directive(s) 04/12/2018 2:54 PM Advance Directive(s) 09/18/2012 9:11 PM Hospital Course Note HNO ID: [id number] Author: Ez Dean Service: Orthopaedic Surgery Author Type: Physician Type: Discharge Summary Filed: 12/06/2019 10:03 AM Note Text: DISCHARGE SUMMARY Patient Name: Gilda Sorto : 1950 ADMISSION DATE: 12/05/2019 DISCHARGE DATE: 12/06/19 Attending Physician: Taz Dean Primary Diagnosis: Primary osteoarthritis of left knee [M17.12] Operations During Hospitalization: Procedure(s) (LRB): ARTHROPLASTY REPLACE JOINT TOTAL KNEE (Left) Procedures During Hospitalization: No procedures performed Hospital Course: Gilda is a 69 year old female complaining of left Knee pain not responsive to a comprehensive course of conservative treatment. Left knee total arthroplasty was proposed and the patient wishes to proceed and was medically cleared prior to the procedure. Patient underwent a Left knee total arthroplasty and was transferred to the PACU in stable condition, She was then admitted to the hospital. Post operatively She did well. Post-operative HgB (more content not included)... Note HNO ID: [id number] Author: Melissa Mccarthy Service: ? Author Type: Nurse Marine Railway Operator Type: Anesthesia Procedure Notes Filed: 12/05/2019 7:44 AM Note Text: ANESTHESIOLOGY PROCEDURE NOTE Peripheral Nerve Block General Information Patient location during procedure: ORTimeout Performed Pre-procedure: timeout performed Consent Obtained: Yes (via Surgical Consent) Patient identity confirmed: patient sedated or unresponsive Reason for block: post-op pain management/at surgeon's request Staffing Anesthesiologist: Bayron Everett Performed by: anesthesiologist Preparation Sterility Preparation: hand hygiene performed prior to procedure, surgical cap used, mask used, sterile drape used during line insertion, skin prep agent completely dried prior to procedure Site Prep: Chloraprep Pre-Procedure Neuro Exam Location: LLE Sensory: sensory deficit and Spinal anesthesia Motor: pre- existing condition and Spinal anesthesia Procedure Details Patient Position: supine Monitoring: Pulse OX, EKG and NI (more content not included)... Note HNO ID: [id number] Author: Melissa Mccarthy Service: ? Author Type: Nurse Marine Railway Operator Type: Anesthesia Procedure Notes Filed: 12/05/2019 7:45 AM Note Text: ANESTHESIOLOGY PROCEDURE NOTE Spinal Block General Information Procedure Start Time/Medication Administration: 12/05/2019 7:39 AM Patient location during procedure: ORTimeout Performed Pre-procedure: timeout performed Consent Obtained: Yes (via Surgical Consent) Patient identity confirmed: arm band Reason for Block: primary surgical anesthetic Staffing DATA PROCESSING MANAGER: Jailene Mccarthy Preparation Sterility Preparation: hand hygiene performed prior to procedure, surgical cap used, mask used, sterile drape used during line insertion, skin prep agent completely dried prior to procedure Site Prep: Duraprep Procedure Details Patient Position: sitting Monitoring: Pulse Ox and NIBP Approach: Midline Location: L3-4 and L4-5 Injection Technique: single-shot Needle Needle Type: pencil-tip Needle Gauge: 25 G Needle Length: 3.5 in Assessment Trang (more content not included)... Procedure Findings Note HNO ID: [id number] Author: Melissa Mccarthy Service: ? Author Type: Nurse Marine Railway Operator Type: Anesthesia Procedure Notes Filed: 12/05/2019 7:44 AM Note Text: ANESTHESIOLOGY PROCEDURE NOTE Peripheral Nerve Block General Information Patient location during procedure: ORTimeout Performed Pre-procedure: timeout performed Consent Obtained: Yes (via Surgical Consent) Patient identity confirmed: patient sedated or unresponsive Reason for block: post-op pain management/at surgeon's request Staffing Anesthesiologist: Bayron Everett Performed by: anesthesiologist Preparation Sterility Preparation: hand hygiene performed prior to procedure, surgical cap used, mask used, sterile drape used during line insertion, skin prep agent completely dried prior to procedure Site Prep: Chloraprep Pre-Procedure Neuro Exam Location: LLE Sensory: sensory deficit and Spinal anesthesia Motor: pre- existing condition and Spinal anesthesia Procedure Details Patient Position: supine Monitoring: Pulse OX, EKG and NI (more content not included)... Note HNO ID: [id number] Author: Melissa Mccarthy Service: ? Author Type: Nurse Marine Railway Operator Type: Anesthesia Procedure Notes Filed: 12/05/2019 7:45 AM Note Text: ANESTHESIOLOGY PROCEDURE NOTE Spinal Block General Information Procedure Start Time/Medication Administration: 12/05/2019 7:39 AM Patient location during procedure: ORTimeout Performed Pre-procedure: timeout performed Consent Obtained: Yes (via Surgical Consent) Patient identity confirmed: arm band Reason for Block: primary surgical anesthetic Staffing DATA PROCESSING MANAGER: Jailene Ernst (Manager Aviation) Fabio Preparation Sterility Preparation: hand hygiene performed prior to procedure, surgical cap used, mask used, sterile drape used during line insertion, skin prep agent completely dried prior to procedure Site Prep: Duraprep Procedure Details Patient Position: sitting Monitoring: Pulse Ox and NIBP Approach: Midline Location: L3-4 and L4-5 Injection Technique: single-shot Needle Needle Type: pencil-tip Needle Gauge: 25 G Needle Length: 3.5 in Assessment Trang (more content not included)... Reason for Referral Specialty Diagnoses / Procedures Referred By Contac t Referred To Contact CT IMAGING Diagnoses Renal artery aneurysm (HCC) Procedures CTA ABD/PEL WO/W IVCON CT ANGIO ABD&PLVIS CNTRST MTRL W/WO CNTRST Paco Haddad MD [address] [place] [address] Ct Imaging Referral ID Status Reason Start Date Expiration Date Visits Requested Visits Authorized [id number] Authorized Auto-Generat ed Referral 09/23/2021 10/23/2022 1 1 Additional Source Comments INFORMATION SOURCE (unrecogn ized section and content) DATE CREATED AUTHOR 12/08/2019 [facility] DATE CREATED AUTHOR AUTHOR'S ORGANIZ ATION 10/22/2021 [facility] Specialist DATE CREATED AUTHOR AUTHOR'S ORGANIZ ATION 05/08/2022 [facility] DATE CREATED AUTHOR AUTHOR'S ORGANIZ ATION 04/14/2023 [facility] DATE CREATED AUTHOR AUTHOR'S ORGANIZ ATION 04/27/2023 [facility] DATE CREATED AUTHOR AUTHOR'S ORGANIZ ATION 01/10/2024 [facility] dical Specialists EPIC Source Comments (unrecognize d section and content) In the event this informatio n is protected by the Federal Confidentiality of Alcohol and Drug Abuse Patient Records regulations: The Federal rules restrict any use of the information to criminally investigate or prosecute any alcohol or drug abuse patient.[facility] the event this information is protected by the Federal Confidentiality of Alcohol and Drug Abuse Patient Records regulations: The Federal rules restrict any use of the information to criminally investigate or prosecute any alcohol or drug abuse patient.[facility] the event this information is protected by the Federal Confidentiality of Alcohol and Drug Abuse Patient Records regulations: The Federal rules restrict any use of the information to criminally investigate or prosecute any alcohol or drug abuse patient.[facility] the event this information is protected by the Federal Confidentiality of Alcohol and Drug Abuse Patient Records regulations: The Federal rules restrict any use of the information to criminally investigate or prosecute any alcohol or drug abuse patient.[facility] the event this information is protected by the Federal Confidentiality of Alcohol and Drug Abuse Patient Records regulations: The Federal rules restrict any use of the information to criminally investigate or prosecute any alcohol or drug abuse patient.[facility] the event this information is protected by the Federal Confidentiality of Alcohol and Drug Abuse Patient Records regulations: The Federal rules restrict any use of the information to criminally investigate or prosecute any alcohol or drug abuse patient.[facility] the event this information is protected by the Federal Confidentiality of Alcohol and Drug Abuse Patient Records regulations: The Federal rules restrict any use of the information to criminally investigate or prosecute any alcohol or drug abuse patient.[facility] the event this information is protected by the Federal Confidentiality of Alcohol and Drug Abuse Patient Records regulations: The Federal rules restrict any use of the information to criminally investigate or prosecute any alcohol or drug abuse patient.[facility] the event this information is protected by the Federal Confidentiality of Alcohol and Drug Abuse Patient Records regulations: The Federal rules restrict any use of the information to criminally investigate or prosecute any alcohol or drug abuse patient.[facility] the event this information is protected by the Federal Confidentiality of Alcohol and Drug Abuse Patient Records regulations: The Federal rules restrict any use of the information to criminally investigate or prosecute any alcohol or drug abuse patient.[facility] Reason for Visit (unrecogniz ed section and content) Reason Comments Appointment Reason Comments Radiology CT Specialty Diagnoses / Procedures Referred By Contac t Referred To Contact CT IMAGING Diagnoses Renal artery aneurysm (HCC) Procedures CTA ABD/PEL WO/W IVCON CT ANGIO ABD&PLVIS CNTRST MTRL W/WO CNTRST Paco Haddad MD [address] [place] [address] Ct Imaging Referral ID Status Reason Start Date Expiration Date V isits Requested Visits Authorized [id number] Closed Auto-Generate d Referral 09/23/2021 10/23/2022 1 1 Reason Comments Established Patient Reason Comments Radiology Mammogram Specialty Diagnoses / Procedures Referred By Contac t Referred To Contact [facility] Diagnoses Encounter for screening mammogram for breast cancer Procedures JAKE SCREENING SCREENING MAMMOGRAPHY BI 2-VIEW BREAST INC Sharon Gallagher, RENAL SOCIAL WORKER.LACROSSE COACH [address] [place] [address] [facility] [address] [place] [address] Referral ID Status Reason Start Date Expiration Date V isits Requested Visits Authorized [id number] Closed Auto-Generate d Referral 11/20/2021 12/20/2022 1 1 Reason Comments Radio Gen RMP Reason Comments Radiology XR Reason Comments Cough Nasal Congestion Care Teams (unrecognized sec tion and content) Tool Designer Relationship Specialty Start Date End Date Gonsalo Hubbard MD [address] [place] [address] PCP - General 08/31/00 Tool Designer Relationship Specialty Start Date End Date Gonsalo Hubbard MD [address] [place] [address] PCP - General 08/31/00 Tool Designer Relationship Specialty Start Date End Date Gonsalo Hubbard MD [address] [place] [address] PCP - General 08/31/00 Tool Designer Relationship Specialty Start Date End Date Gonsalo Hubbard MD [address] [place] [address] PCP - General 08/31/00 Tool Designer Relationship Specialty Start Date End Date Gonsalo Hubbard MD [address] [place] [address] PCP - General 08/31/00 Tool Designer Relationship Specialty Start Date End Date Gonsalo Hubbard MD [address] [place] [address] PCP - General 08/31/00 Tool Designer Relationship Specialty Start Date End Date Gonsalo Hubbard MD [address] [place] [address] PCP - General 08/31/00 Tool Designer Relationship Specialty Start Date End Date Gonsalo Hubbard MD [address] [place] [address] PCP - [employer] 05/16/21 Gonsalo Hubbard MD [address] [place] [address] PCP - General Internal Medicine 12/07/22 Eliud Weiss DPM [address] [place] [address] Referring Physician Podiatry 04/20/23 Ifeanyi Leavitt MD [address] [place] [address] Consulting Physician Dermatology 04/26/23 Sandro Trejo MD [address] [place] [id number] Consulting Physician Ophthalmology 04/26/23 Dr Ramirez [facility] Vascular Surgery 11/25/21 FOR RECORDS PERTAINING TO PATIENTS WHO ARE OR HAVE BEEN ENROLLED IN A CHEMICAL DEPENDENCY/SUBSTANCEABUSE PROGRAM, SOME INFORMATION MAY BE OMITTED. This clinical summary was aggregated from multiple sources. Caution should be exercised in using it in the provision of clinical care. This summary normalizes information from multiple sources, and as a consequence, information in this document may materially change the coding, format and clinical context of patient data. In addition, data may be omitted in some cases. CLINICAL DECISIONS SHOULD BE BASED ON THE PRIMARY CLINICAL RECORDS. [employer] [facility]. provides no warranty or guarantee of the accuracy or completeness of information in this document.
== END 2024-01-18 10:41 | disposition home or self-care (01) ==
LOC: VC 08:58
PROVIDERS: PCP Radiology Diagnostic Radiology; Visit Provider Radiology Diagnostic Radiology
DX: I83.813 Varicose veins of bilateral lower extremities with pain (principal)
CPT/HCPCS: 36478

== ENCOUNTER 2024-01-24 14:26 | Outpatient (OUT) | payer MEDICARE, SELFPAY ==
[2024-01-24 09:42] VITALS: BMI 34.0
--- NOTE | 2024-01-24 09:42 | V.VEINS.HP ---
Vital Signs 01/24/24 09:42 Height 5 ft 3 in Weight 87 kg BMI 34.0 Varicose Veins Patient is a 73 year old female in this day for follow up ultrasoud post EVLT of leftt GSV. Carlos Garcia MD personally performed the services described in this documentation, as scribed by Zandra Mota RVT, RDMS in my presence and it is both accurate and complete. Zandra Garcia RVT, RDMS, am scribing for, and in the presence of, Dr. Carlos Yeung and in the presence of the patient. thigh: bilateral (symptoms left > right leg), knee: bilateral, calf: bilateral, ankle: bilateral and beltre: bilateral aching, cramping and dull 5 20 years Worsened in recent months: Yes standing elevating extremities, compression stockings and exercise Reports fatigue, heaviness, limb pain, edema and leg edema History of lower extremity trauma: No Superficial thrombophlebitis: No Family history of varicose veins: yes (Patient's mother) Has patient had previous lower extremity venous surgery: Yes Patient has previously received the following treatment(s) for lower extremity varicose veins: Reports sclerotherapy and laser therapy Does patient have a history of : yes Does patient intend to have future pregnancies: no Has patient had lower extremity venous scan with relux testing: Yes Support hose used: Yes Problems walking or doing physical activity: Yes How does it affect you: decreased ability secondary to pain/edema Do you walk much: Yes Do you stand much: No Review of Systems ROS Narrative Carlos Garcia MD personally performed the services described in this documentation, as scribed by Zandra Mota RVT, RDMS in my presence and it is both accurate and complete. Zandra Garcia RVT, RDMS, am scribing for, and in the presence of, Dr. Carlos Yeung and in the presence of the patient. Status of ROS 10 or more systems reviewed and unremarkable except as noted in history and below Cardiovascular Reports: edema Integumentary/Breast Reports: skin pain, skin tenderness and changes in skin color Neurological Reports: weakness in extremities [facility] Medical History (Updated 01/24/24 @ 09:44 by Zandra Mota) Phlebitis and thrombophlebitis of superficial vessels of left lower extremity ?I80.02 - Phlebitis and thrombophlebitis of superficial vessels of left lower extremity (ICD-10) Renal artery aneurysm ?I72.2 - Aneurysm of renal artery (ICD-10) delivery delivered ?O82 - Encounter for delivery without indication (ICD-10) Pain due to varicose veins of both lower extremities ?I83.813 - Varicose veins of bilateral lower extremities with pain (ICD-10) Squamous cell carcinoma Hyperparathyroidism ?E21.3 - Hyperparathyroidism, unspecified (ICD-10) 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 - Other specified disorders of arteries and arterioles (ICD-10) Hypertension ?I10 - Essential (primary) hypertension (ICD-10) Cataract ?H26.9 - Unspecified cataract (ICD-10) Breast cancer ?C50.919 - Malignant neoplasm of unspecified site of unspecified female breast (ICD-10) Arthritis ?M19.90 - Unspecified osteoarthritis, unspecified site (ICD-10) Anxiety ?F41.9 - Anxiety disorder, unspecified (ICD-10) Surgical History (Updated 01/18/24 @ 10:40 by Veto Allred) Status post ablation of incompetent vein using laser ?Z98.890 - Other specified postprocedural states (ICD-10) History of arthroplasty of left knee ?Z96.652 - Presence of left artificial knee joint (ICD-10) History of tonsillectomy and adenoidectomy ?Z90.89 - Acquired absence of other organs (ICD-10) H/O: hysterectomy ?Z90.710 - Acquired absence of both cervix and uterus (ICD-10) History of surgical removal of squamous cell carcinoma of skin of rastafarian region ?Z98.890 - Other specified postprocedural states (ICD-10) ?Z85.828 - Personal history of other malignant neoplasm of skin (ICD-10) H/O parathyroidectomy ?Z98.890 - Other specified postprocedural states (ICD-10) ?Z90.89 - Acquired absence of other organs (ICD-10) Hx of appendectomy ?Z90.49 - Acquired absence of other specified parts of digestive tract (ICD-10) Family History (Updated 01/17/24 @ 11:24 by Veto Allred) Other Family history of hypertension Heart disease Pain due to varicose veins of both lower extremities Social History (Updated 01/17/24 @ 11:24 by Veto Allred) Within the past year, how often did you have a drink containing alcohol: 2-4 times a month Smoking status: Never smoker Non-prescribed substance use: denies use Meds Home Medications and Allergies Home Medications ?Medication ?Instructions ?Recorded ?Confirmed ?Type lorazepam 0.5 mg tablet (Ativan) 0.25 mg PO DAILY PRN anxiety 01/17/24 01/17/24 History multivitamin (Daily Multi-Vitamin 1 tab PO DAILY 01/17/24 01/17/24 History tablet) omeprazole 40 mg capsule,delayed 40 mg PO DAILY 01/17/24 01/17/24 History release triamterene 37.5 1 cap PO DAILY 01/17/24 01/17/24 History mg-hydrochlorothiazide 25 mg capsule zolpidem 5 mg tablet (Ambien) 01/17/24 History Allergies Allergy/AdvReac Type Severity Reaction Status Date / Time TRACY Inhibitors Allergy Severe Swelling Verified 01/17/24 11:28 of Lip/Tongue/Throat doxycycline Allergy Intermediate Rash Verified 01/17/24 11:28 nitrofurantoin Allergy Intermediate Rash Verified 01/17/24 11:28 Sulfa (Sulfonamide Allergy Rash Verified 01/17/24 11:28 Antibiotics) Exam Narrative Exam Narrative: Carlos Garcia MD personally performed the services described in this documentation, as scribed by Zandra Mota RVT, RDMS in my presence and it is both accurate and complete. Zandra Garcia RVT, RDMS, am scribing for, and in the presence of, Dr. Carlos Yeung and in the presence of the patient. Constitutional Documenting provider has reviewed patient's vital signs: yes Common normals: oriented x3 Cardio Peripheral pulses: posterior tibial pulses present and dorsalis pedis pulses present Extremity Common normals: normal capillary refill General: calf tenderness and edema Right lower extremity: lower leg Right lower leg: inspection and palpation Left lower extremity: lower leg Left lower leg: inspection and palpation Neuro Common normals: oriented x3 Results Imaging Venous US: Radiologist's impression: The ultrasound demonstrates Heat induced thrombus visualized 2.7cm from the SFJ. The heat induced thrombus extends from groin to distal thigh. Assessment and Plan Assessment and Plan (1) Pain due to varicose veins of both lower extremities: (2) Phlebitis and thrombophlebitis of superficial vessels of left lower extremity: Plan Patient in today for follow up ultrasound of lower extremity following treatment of EVLT of left GSV completed on 01/18/24.
--- NOTE | 2024-01-24 09:45 | W.VEIN ---
Discharge Plan Discharge Disposition: Home, Self-Care Outpatient Diagnostics: VC Endovenous Ablation 1VeinRT (Routine) Timeframe: 2 Weeks Facility: [facility] - Location: [facility] Ordered By: Jb Li Plan of Treatment: EVLT of right leg GSV. Print Language: Togolese
--- NOTE | 2024-01-24 14:27 | VEIN_ITS ---
Patient Name: JACQUELIN SORTO MR#: [id number] : 1950 Exam Date: 01/24/2024 Ordering Doctor: DR ELPIDIO YEUNG M.D. RADIOLOGY REPORT PROCEDURE: VC EXT VENOUS LT LIMITED COMPARISON: None. INDICATIONS: I80.02 - Phlebitis and thrombophlebitis of superficial ve... TECHNIQUE: Lower extremity natarajan scale and Duplex Doppler evaluation of the deep venous system from the inguinal ligament through the calf veins. FINDINGS: REGION: Left lower extremity. THROMBI: Negative for DVT. Heat induced thrombus visualized 2.7cm from the SFJ. The heat induced thrombus extends from groin to distal thigh. COMPRESSIBILITY: Non-compressible segments corresponding to thrombus FLOW: Areas of no flow corresponding to thrombus OTHER: CONCLUSION: 1. Successful post ablation occlusion of left great saphenous vein. Dictated by: Elpidio Yeung M.D. on 01/24/2024 at 15:08 Approved by: Elpidio Yeung M.D. on 01/24/2024 at 15:22
--- NOTE | 2024-01-24 14:27 | VEIN_ITS ---
Patient Name: JACQUELIN SORTO MR#: [id number] : 1950 Exam Date: 01/24/2024 Ordering Doctor: DR ELPIDIO IRIZARRY M.D. RADIOLOGY REPORT PROCEDURE: [facility] - OFFICE VISIT FOLLOW UP COMPARISON: None. PROGRESS NOTES: The patient reports improvement in leg symptoms. There has been interval reduction in varicosities. The patient has followed our recommendations to walk 20-30 minutes once or twice per day since the procedure. Physical exam demonstrates decrease in varicosities of the leg. Persistent varicose are identified along the legs bilaterally. Review of the ultrasound performed the same day demonstrates occlusive thrombus extending throughout the treated vein(s), see separate report, consistent with a successful ablation. No thrombus extending into or beyond the saphenofemoral junction. The patient expressed a desire to proceed with treatment of remaining incompetent varicosities. The patient was informed that treatment was a process and would require several procedures/sessions. VEIN/ Facility EST [facility] IMPRESSION: 1. Successful ablation of the left great saphenous vein(s). 2. Persistent varicose veins and lower extremity symptoms. PLAN: Endovenous laser ablation of right great saphenous vein. Nurse notes, history and physical were reviewed and confirmed, see attached forms. The nurse was present throughout the physical exam and consultation Dictated by: Elpidio Irizarry M.D. on 01/24/2024 at 15:23 Approved by: Elpidio Irizarry M.D. on 01/24/2024 at 15:24
--- OUTSIDE RECORDS SUMMARY | 2024-01-24 14:37 | XMS_ITS | CCD ---
Author Organization [facility] ion Partnership [facility] Care Team Providers Care Emt P Name Role Phone Gonsalo Hubbard MD Primary Care Provider JALEN DELAROSA Attending Unavailable Gonsalo Hubbard Primary Care Unavailable JALEN DELAROSA Attending Unavailable Gonsalo Hubbard Primary Care Unavailable JALEN DELAROSA Attending Unavailable Gonsalo Hubbard Primary Care Unavailable JALEN DELAROSA Attending Unavailable PCP, NONE Primary Care Unavailable JALEN DELAROSA Attending Unavailable Gonsalo Hubbard Primary Care Unavailable Gonsalo Hubbard MD Primary Care Provider [phone] KAYLA MATA Attending Unavailable KAYLA MATA Referring [...] Unavailable Gonsalo Hubbard MD Primary Care Provider [phone] Abhishek TSAI, Eliud Cuevas Unavailable [phone] Ifeanyi Leavitt MD Unavailable [phone] Sandro Trejo MD Unavailable [phone] GONSALO HUBBARD Referring Unavailable SAMIA SANZ Attending Unavailable GONSALO HUBBARD Attending Unavailable GRAZYNA BERMUDEZ Attending Unavailable GRAZYNA BERMUDEZ Referring Unavailable GONSALO HUBBARD Attending Unavailable Allergies Allergy Classification Reported Allergen(s) Allergy Type Date of Onset Reaction(s) Facility (13 sources) Doxycycline; Translations: [DOXYCYCLINE] Drug Allergy 8 Rash [facility] Work Phone: (13 sources) Sulfonamides (Antibiotic); Translations: [SULFA (SULFONAMIDE ANTIBIOTICS)] Drug Allergy 4 Anaphylaxis, Unknown [facility] (1 source) Doxycycline Drug Allergy 2 [facility] (1 source) Sulfonamides (Antibiotic) Drug allergy (disorder) 2 [facility] (2 sources) Angiotensin-conver ting enzyme inhibitor agent Drug Allergy 3 Angioedema [facility] (2 sources) Nitrofurantoin Drug Allergy 3 GI intolerance [facility] Healthcare Medications Current Medications Medication Drug [...] on above: Take 1 capsule by mo [facility] once daily. levocetirizine dihydrochloride 5 mg oral [...] MG tablet Indications: SIOBHAN (generalized anxiety disorder) ([facility]/HCC) Take 1 tablet (0.5 mg) by mouth [...] on above: Take 1 capsule by mo [facility] twice daily as needed for Constipation. lysine [...] 12-02-2017 Episodic Other aftercare (1 source) Other medical terminologist (current) drug therapy; Translations: [Other medical terminologist (current) drug therapy] Onset: 01-12-2022 Episodic Other [...] screening mammo BI w/CAD [facility] [place] [address] [place] [address] Mammography Report Signed Patient: Gilda Sorto MR#: [id number] 0 : 1950 Acct:[id number] Age/Sex: 72 / F ADM Date: 04/19/23 Loc: PA Room: Type: [facility] Attending Dr: Gonsalo Hubbard MD Copies to: [...] Azam Cason M.D.04/19/2023 1:37 PM Dictation Location: [facility] Transcribed By: ISABELA 04/19/231336 Dictated By: Azam Cason II, MD 04/19/231331 Signed By: 04/19/231336 [facility] CNOVon 04-12-2023 CNOV Office Visit (PLASST ) GILDA SORTO ([id number]) 1950 F Date Time Provider Department 04/12/23 1:00 PM KAYLA MATA During your visit today, we recorded the following information about you: Kayla Mata MD 04/12/2023 4:51 PM Signed PLASTIC SURGERY DEPARTMENT [facility] Hand Surgery Note [x] New referred [...] [x] Anticoagula (more content not included)... Normal [facility] XR HAND 3V PA/LAT/OBL BILon 04-12-2023 XR [...] 1. Osteoarthritis of both hands and wrists. Smooth Plater: PSCB Transcribe Date/Time: Apr 12 2023 1:52P Dictated by : EDITH LAZO MD This examination was interpreted and the report reviewed and electronically signed by: EDITH LAZO MD on Apr 12 2023 1:54PM EST [id number] Normal [facility] XR WRIST 3V PA/LAT/OBL BILon 04-12-2023 XR [...] IMPRESSION: 1. Degenerative arthrosis of both wrists. Smooth Plater: CHARLOTTE Transcribe Date/Time: Apr 12 2023 1:54P Dictated by : EDITH LAZO MD This examination was interpreted and the report reviewed and electronically signed by: EDITH LAZO MD on Apr 12 2023 1:55PM EST [id number] Normal [facility] CNCOon 04-16-2022 CNCO HNO ID: [id number] Author: Mammography Coordinator Service: ? Author Type: Physician Type: Letter Filed: 04/19/2022 11:36 PM Note Text: April 16, 2022 PID: [id number] Gilda Sorto [address] [place] [address] Dear Ms. Sorto, We are pleased to [...] report will be kept on file at [facility] as part of your permanent medical record and are available for your continuing care. Thank you for allowing us to help in meeting your health care needs. Sincerely, Dr. Perez Interpreting Radiologist [facility] (Normal over 40) Normal [facility] CNOVSPon 04-16-2022 CNOVSP Visit (SP) Office ([facility]) GILDA SORTO ([id number]) 1950 F Date Time Provider Department 04/16/22 12:30 PM [id number] During your visit today, we recorded the following information about you: Temperature Pulse Respiration Blood pressure 98.1 degrees 85/minute 20/minute 117/60 Sue Leblanc MA 04/16/2022 11:54 AM Signed Additional intake questions: Has the patient had fever, nausea, vomiting, diarrhea, constipation, fatigue for > 1 week? No Does the patient have a decreased appetite? No Does patient want to see a Implementation Architect? No (yes to any of above refer patient to schedulers for dietitian appointment) ) Does patient have any new or increased numbness or tingling of extremities? No Is patient interested in fertility information? No Does patient need any prescription refills? No Does patient have an advanced directive in place? Yes, copies are in Epic Electronically Signed By: WESLEY Thomas APRN.[facility] 04/16/2022 2:06 PM Signed ATTENDING PHYSICIAN: Dr. [...] which included preparing to see the patient, [id number] patient care, completing clinical documentation, performing a medically appropriate examination, counseling and educating the patient/family/caregive r, ordering medications, tests, or procedures, communicating with other HCPs (not separately reported), independently interpreting results (not separately reported), communicating results to the patient/family/caregive r, and care coordination (not separately reported). Sharon Saldivar APRN.UNDERGROUND PRODUCTION FOREPERSON Referring Provider: SHARON SALDIVAR [[id number]] Allergies As of Date: 04/16/2022 Noted Allergy [...] Z17.1] Order(s):WESLEY (more content not included)... Normal [facility] JAKE SCREENING W TOMOon 04-16 JAKE SCREENING W JOE * * *Final Report* * * DATE OF EXAM: Apr 16 2022 11:12AM CAW 0582 - JAKE SCREENING W JOE / PROCEDURE REASON: Encounter for screening mammogram for breast cancer * * * * Physician Interpretation * * * * RESULT: #[id number] - JAKE SCREENING W JOE BILATERAL DIGITAL [...] to exams dated: 11/24/2020 mammogram - [facility], 11/22/2019 mammogram, 11/14/2018 mammogram - [facility], 11/11/2017 mammogram, and 11/02/2016 mammogram - [facility]. There are scattered fibroglandular elements in both [...] screening mammogram is recommended. Bernardo garay/ayde:04/16/2022 11:38:26 Supervisor Industrial Garment(s): RT Mario(R)(M)(BS), [facility] letter sent: [...] Health, Family Medicine, and Medical/Surgical Oncology, the [facility] has carefully reviewed the data and reached [...] their providers when to stop screening mammograms. Smooth Plater: Ayde Transcribe Date/Time: Apr 16 2022 11:12A Dictated by : BERNARDO PEREZ MD This examination was interpreted and the report reviewed and electronically signed by: BERNARDO PEREZ MD on Apr 16 2022 11:38AM EST [id number] Normal [facility] SARS-CoV-2,INFLUENZA A/B NUC LEI ACID TESTon 12-15-2021 EUA DISCLAIMER Normal [facility] Comment on above: Result Comment: Infl [...] is terminated or revoked sooner. Performed at [place] [address] FLU A by PCR Negative [facility] FLU B by PCR Negative [facility] SARS-CoV-2 (COVID-19) RNA ANGELICA+probe Ql (Unsp spec) Abnormal NEG [facility] Comment on above: Result Comment: Posi tive for COVID-19 CRITICAL VALUE-PHYSICIAN MUST BE NOTIFIED RESULTS PHONED TO: Carmel Tinajero RN at 0928 VERBAL RESULT VERIFICATION RECEIVED EUA DISCLAIMER [facility] Comment on above: Result Comment: Infl uenza [...] is terminated or revoked sooner. Performed at [place] [address] FLU A by PCR Negative [facility] FLU B by PCR Negative [facility] SARS-CoV-2 (COVID-19) RNA ANGELICA+probe Ql (Unsp spec) Abnormal [facility] Comment on above: Result Comment: Posi tive for COVID-19 CRTV RESULTS PHONED TO: Jenny Fitzpatrick RN at 0854 VERBAL RESULT VERIFICATION RECEIVED CBC with Diffon 12-09-2021 AB IMMATURE NEUT 0.02 K/UL Normal 0.0-0.1 [facility] ABS BASO 0.02 K/UL Normal 0.00-0.22 [facility] ABS EOS 0.32 K/UL Normal 0-0.45 [facility] ABS NEUTROPHILS 4.34 K/UL Normal 1.8-7.7 [facility] ABS.NEUT.CALCULATED 4.34 K/UL Normal [facility] Comment on above: Result Comment: Perf ormed at [facility] [address] [facility] [address] Basophils/100 WBC (Bld) 0.30 % Normal 0-1 [facility] DIFF TYPE AUTO DIFF Normal [facility] Eosinophils/100 WBC (Bld) 5.10 % High 0-3 [facility] Erythrocyte distribution width (RBC) [Ratio] 12.7 % Normal 11.7-15.0 [facility] Hematocrit (Bld) [Volume fraction] 41.9 % Normal 36-44 [facility] Hemoglobin (Bld) [Mass/Vol] 13.5 g/dL Normal 12.0-15.0 [facility] Lymphocytes (Bld) [#/Vol] 1.15 10*3/uL Low 1.2-3.2 [facility] Lymphocytes/100 WBC (Bld) 18.30 % Low 20-40 [facility] MCH (RBC) [Entitic mass] 31.0 pg Normal 26-34 [facility] MCHC 32.2 % Normal 31-37 [facility] MCV (RBC) [Entitic vol] 96.3 fL Normal 80-100 [facility] MEAN PLT VOL 9.0 CU Normal 7.0-12.6 [facility] Monocytes (Bld) [#/Vol] 0.44 10*3/uL Normal 0-0.8 [facility] Monocytes/100 WBC (Bld) 7.00 % Normal 0-8 [facility] Neutrophils/100 WBC (Bld) 0.30 % Normal 0.0-1.0 [facility] Neutrophils/100 WBC (Bld) 69.00 % Normal 50-70 [facility] Platelets (Bld) [#/Vol] 240 10*3/uL Normal 150-450 [facility] RBC (Bld) [#/Vol] 4.35 10*6/uL Normal 4.0-4.9 [facility] RDW-SD 45.4 FL Normal 37.0-54.0 [facility] WBC (Bld) [#/Vol] 6.3 10*3/uL Normal 4.5-11.0 [facility] COMPREHENSIVE METABOLIC PANE Juanito 12-09-2021 Albumin [Mass/Vol] 4.2 g/dL Normal 3.5-5.0 [facility] Albumin/Globulin [Mass ratio] 1.6 {ratio} Normal 1.5-3.0 [facility] ALP [Catalytic activity/Vol] 80 U/L Normal 35-125 [facility] ALT [Catalytic activity/Vol] 26 U/L Normal 5-40 [facility] Anion gap [Moles/Vol] 7 mmol/L Normal 0-19 [facility] AST [Catalytic activity/Vol] 32 U/L Normal 5-40 [facility] Bilirubin [Mass/Vol] 0.3 mg/dL Normal 0.1-1.2 [facility] Calcium [Mass/Vol] 9.4 mg/dL Normal 8.5-10.4 [facility] Chloride [Moles/Vol] 103 mmol/L Normal 97-107 [facility] CO2 [Moles/Vol] 31 mmol/L Normal 24-31 [facility] Creatinine [Mass/Vol] 1.2 mg/dL Normal 0.4-1.6 [facility] ESTIMATED GFR 48 mL/min/1.73 m2 Normal [facility] Comment on above: Result Comment: CALCULATIONS OF ESTIMATED GFR ARE PERFORMED USING THE 2020 CKD-EPI STUDY REFIT EQUATION WITHOUT THE RACE VARIABLE FOR THE IDMS-TRACEABLE CREATININE METHODS. https://jasn.asnjournals.org/content//ASN.9777948 988 Performed at [facility] [address] [facility] [address] Globulin (S) [Mass/Vol] 2.6 g/dL Normal 1.9-3.7 [facility] Glucose [Mass/Vol] 87 mg/dL Normal 65-99 [facility] Potassium [Moles/Vol] 4.8 mmol/L Normal 3.4-5.1 [facility] Protein [Mass/Vol] 6.8 g/dL Normal 5.9-7.9 [facility] Sodium [Moles/Vol] 141 mmol/L Normal 133-145 [facility] Urea nitrogen [Mass/Vol] 13 mg/dL Normal 8-25 [facility] Urea nitrogen/Creatinine [Mass ratio] 10.8 mg/mg Normal 8-21 [facility] UA-REFLEX TO CULTUREon 12-09 EPI Normal [facility] Comment on above: Result Comment: Occa sional SQUAMOUS Performed at [facility] [address] [facility] [address] RBC NONE SEEN Normal 0-3 [facility] Urinalysis dipstick W Reflex Microscopic panel (U) MANUAL MICROSCOPIC URINES Normal [facility] WBC NONE SEEN Normal 0-3 [facility] Bacteria identified Cx Nom (U) CULTURE NOT INDICATED Normal [facility] Comment on above: Result Comment: CULT URE NOT INDICATED Performed at [facility] [id number] [place] [address] BILI Negative Normal NEG [facility] Clarity (U) CLEAR Normal [facility] Color (U) YELLOW Normal [facility] GLUC Negative Normal NEG [facility] Hemoglobin Ql (U) Negative Normal NEG [facility] KET Negative Normal NEG [facility] LEUK Negative Normal NEG [facility] NIT Negative Normal NEG [facility] pH (U) 8.0 [pH] Normal 4.6-8.0 [facility] PROT Negative Normal NEG [facility] SP GRAV,URINE 1.015 Normal 1.005-1.[address] [facility] URO 0.2 MG/DL Normal 0-1.0 [facility] CREATININE, BLOOD (POC)on Creatinine [Mass/Vol] 1.20 mg/dL 0.7 - 1.4 mg/dL [facility] eGFR (POCT) 48 mL/min/1.73 m2 [facility] CTA ABD/PEL W IVCONon 2021 [facility] MRI Shoulder w/o Righton MRI Shoulder w/o [...] by Gonsalo Alvarez on 10/21/2021 1010 Normal [facility] Complete Blood Count with Au to Diffon 04-21-2021 Basophils (Bld) [#/Vol] 0.03 10*3/uL Normal 0.00-0.20 [facility] Specialist Comment on above: Performed By: #### C BCAD, VITD, LIPD, CMP #### [facility] [address] [place], [place] [id number] Basophils/100 WBC (Bld) 0.5 % Normal [facility] Special[facility] Comment on above: Performed By: #### C BCAD, VITD, LIPD, CMP #### [facility] [address] [place], [place] [id number] Eosinophils (Bld) [#/Vol] 0.27 10*3/uL Normal 0.02-0.50 [facility] Special[facility] Comment on above: Performed By: #### C BCAD, VITD, LIPD, CMP #### [facility] [address] [place], [place] [id number] Eosinophils/100 WBC (Bld) 4.6 % Normal [facility] Comment on above: Performed By: #### C BCAD, VITD, LIPD, CMP #### [facility] [address] [place], [place] [id number] Erythrocyte distribution width (RBC) [Ratio] 13.1 % Normal 11.0-15.0 [facility] Special[facility] Comment on above: Performed By: #### C BCAD, VITD, LIPD, CMP #### [facility] [address] [place], [place] [id number] Hematocrit (Bld) [Volume fraction] 43.9 % Normal 35.0-47.0 [facility] Special[facility] Comment on above: Performed By: #### C BCAD, VITD, LIPD, CMP #### [facility] [address] [place], [place] [id number] Hemoglobin (Bld) [Mass/Vol] 14.0 g/dL Normal 11.6-15.5 [facility] Special[facility] Comment on above: Performed By: #### C BCAD, VITD, LIPD, CMP #### [facility] [address] [place], [place] [id number] Lymphocytes (Bld) [#/Vol] 1.9 10*3/uL Normal 0.9-3.9 [facility] Lab Engineer Comment on above: Performed By: #### C BCAD, VITD, LIPD, CMP #### [facility] [address] [place], [place] [id number] Lymphocytes/100 WBC (Bld) 31.8 % Normal [facility] Lab Engineer Comment on above: Performed By: #### C BCAD, VITD, LIPD, CMP #### [facility] [address] [place], [place] [id number] MCH (RBC) [Entitic mass] 30.0 pg Normal 27.0-33.0 [facility] Lab Engineer Comment on above: Performed By: #### C BCAD, VITD, LIPD, CMP #### [facility] [address] [place], [place] [id number] MCHC (RBC) [Mass/Vol] 31.9 g/dL Low 32.0-36.0 [facility] Lab Engineer Comment on above: Performed By: #### C BCAD, VITD, LIPD, CMP #### [facility] [address] [place], [place] [id number] MCV (RBC) [Entitic vol] 94 fL Normal 80-100 [facility] Lab Engineer Comment on above: Performed By: #### C BCAD, VITD, LIPD, CMP #### [facility] [address] [place], [place] [id number] Monocytes (Bld) [#/Vol] 0.5 10*3/uL Normal 0.2-0.9 [facility] Comment on above: Performed By: #### C BCAD, VITD, LIPD, CMP #### [facility] [address] [place], [place] [id number] Monocytes/100 WBC (Bld) 7.9 % Normal [facility] Comment on above: Performed By: #### C BCAD, VITD, LIPD, CMP #### [facility] [address] [place], [place] [id number] Neutrophils (Bld) [#/Vol] 3.2 10*3/uL Normal 1.5-7.8 [facility] Comment on above: Performed By: #### C BCAD, VITD, LIPD, CMP #### [facility] [address] [place], [place] [id number] Neutrophils/100 WBC (Bld) 54.9 % Normal [facility] Comment on above: Performed By: #### C BCAD, VITD, LIPD, CMP #### [facility] [address] [place], [place] [id number] Platelet mean volume (Bld) [Entitic vol] 9.90 fL Normal 7.50-12.50 [facility] Comment on above: Performed By: #### C BCAD, VITD, LIPD, CMP #### [facility] [address] [place], [place] [id number] Platelets (Bld) [#/Vol] 255 10*3/uL Normal 140-400 [facility] Specialist Comment on above: Performed By: #### C BCAD, VITD, LIPD, CMP #### [facility] [address] [place], [place] [id number] RBC (Bld) [#/Vol] 4.67 10*6/uL Normal 3.90-5.20 [facility] Comment on above: Performed By: #### C BCAD, VITD, LIPD, CMP #### [facility] [address] [place], [place] [id number] RDW-SD 44.8 fL Normal 37.0-50.0 [facility] Lab Engineer Comment on above: Performed By: #### C BCAD, VITD, LIPD, CMP #### [facility] [address] [place], [place] [id number] WBC (Bld) [#/Vol] 5.8 10*3/uL Normal 3.8-11.0 [facility] [place] [facility] Comment on above: Performed By: #### C BCAD, VITD, LIPD, CMP #### [facility] [address] [place], [place] [id number] Comprehensive Metabolic Pane juanito 04-21-2021 Albumin [Mass/Vol] 4.5 g/dL Normal 3.6-5.1 [facility] [place] [facility] Comment on above: Performed By: #### C BCAD, VITD, LIPD, CMP #### [facility] [address] [place], [place] [id number] Albumin/Globulin [Mass ratio] 2.3 {ratio} Normal 1.0-2.5 [facility] Lab Engineer Comment on above: Performed By: #### C BCAD, VITD, LIPD, CMP #### [facility] [address] [place], [place] [id number] ALP [Catalytic activity/Vol] 96 U/L Normal 35-119 [facility] Lab Engineer Comment on above: Performed By: #### C BCAD, VITD, LIPD, CMP #### [facility] [address] [place], [place] [id number] ALT [Catalytic activity/Vol] 24 U/L Normal 6-33 [facility] Lab Engineer Comment on above: Result Comment: 04/15 Female reference range changed. Performed By: #### C BCAD, VITD, LIPD, CMP #### [facility] [address] [place], [place] [id number] Anion gap [Moles/Vol] 18 mmol/L Normal 12-20 [facility] Engineer Comment on above: Result Comment: Effe ctive 05/21/2019 reference range changed. Performed By: #### C BCAD, VITD, LIPD, CMP #### [facility] [address] [facility] [place] [id number] AST [Catalytic activity/Vol] 30 U/L Normal 9-34 [facility] Comment on above: Performed By: #### C BCAD, VITD, LIPD, CMP #### [facility] [address] [place], [place] [id number] Bilirubin [Mass/Vol] 0.51 mg/dL Normal 0.30-1.20 [facility] Comment on above: Performed By: #### C BCAD, VITD, LIPD, CMP #### [facility] [address] [place], [place] [id number] BUN/CREA 21 Ratio Normal 6-22 [facility] Comment on above: Performed By: #### C BCAD, VITD, LIPD, CMP #### [facility] [address] [place], [place] [id number] Calcium [Mass/Vol] 9.8 mg/dL Normal 8.6-10.2 [facility] Comment on above: Performed By: #### C BCAD, VITD, LIPD, CMP #### [facility] [address] [place], [place] [id number] Chloride [Moles/Vol] 103 mmol/L Normal 98-107 [facility] Comment on above: Performed By: #### C BCAD, VITD, LIPD, CMP #### [facility] [address] [place], [place] [id number] CO2 [Moles/Vol] 26 mmol/L Normal 20-31 [facility] Comment on above: Performed By: #### C BCAD, VITD, LIPD, CMP #### [facility] [address] [place], [place] [id number] Creatinine [Mass/Vol] 1.1 mg/dL Normal 0.6-1.4 [facility] Comment on above: Performed By: #### C BCAD, VITD, LIPD, CMP #### [facility] [address] [place], [place] [id number] eGFRAA 58 mL/min/1.73m2 Low >60 [facility] Specialist Comment on above: Performed By: #### C BCAD, VITD, LIPD, CMP #### [facility] [address] [place], [place] [id number] eGFRNAA 48 mL/min/1.73m2 Low >60 [facility] Lab Engineer Comment on above: Performed By: #### C BCAD, VITD, LIPD, CMP #### [facility] [address] [place], [place] [id number] Globulin (S) [Mass/Vol] 2.0 g/dL Normal 1.9-3.7 [facility] Lab Engineer Comment on above: Performed By: #### C BCAD, VITD, LIPD, CMP #### [facility] [address] [place], [place] [id number] Glucose [Mass/Vol] 91 mg/dL Normal 65-99 [facility] [place] [facility] Comment on above: Result Comment: For FASTING Glucose --- ADA reference ranges: Normal 65-99 mg/dl Prediabetes 100-125 Diabetes >/= 126 Performed By: #### C BCAD, VITD, LIPD, CMP #### [facility] [address] [place], [place] [id number] Potassium [Moles/Vol] 4.5 mmol/L Normal 3.5-5.5 [facility] Lab Engineer Comment on above: Performed By: #### C BCAD, VITD, LIPD, CMP #### [facility] [address] [place], [place] [id number] Protein [Mass/Vol] 6.5 g/dL Normal 6.1-8.1 [facility] [place] [facility] Engineer Comment on above: Performed By: #### C BCAD, VITD, LIPD, CMP #### [facility] [address] [place], [place] [id number] Sodium [Moles/Vol] 142 mmol/L Normal 135-146 [facility] [place] [facility] Engineer Comment on above: Performed By: #### C BCAD, VITD, LIPD, CMP #### [facility] [address] [place], [place] [id number] Urea nitrogen [Mass/Vol] 24 mg/dL Normal 7-25 [facility] Lab Engineer Comment on above: Performed By: #### C BCAD, VITD, LIPD, CMP #### [facility] [address] [place], [place] [id number] Lipid Panelon 04-21-2021 Cholesterol [Mass/Vol] 182 mg/dL Normal 125-200 [facility] Specialist Comment on above: Result Comment: Low risk < 200mg/dL Borderline risk 201-239 mg/dl High risk > or equal to 240 Performed By: #### C BCAD, VITD, LIPD, CMP #### [facility] [address] [place], [place] [id number] Cholesterol in HDL [Mass/Vol] 62 mg/dL Normal >40 [facility] Specialist Comment on above: Result Comment: High Cardiovascular Risk HDL <40 mg/dL Low Cardiovascular Risk HDL > or equal to 60 mg/dl Performed By: #### C BCAD, VITD, LIPD, CMP #### [facility] [address] [place], [place] [id number] Cholesterol in LDL [Mass/Vol] 98 mg/dL Normal [facility] Specialist Comment on above: Result Comment: LDL ATP III CLASSIFICATION LDL less than 100 mg/dl Optimal LDL 100-129 mg/dl Near or above optimal LDL 130-159 Borderline high LDL 160-189 High LDL greater than 189 mg/dl Very High Performed By: #### C BCAD, VITD, LIPD, CMP #### [facility] [address] [place], [place] [id number] Cholesterol in VLDL [Mass/Vol] 22 mg/dL Normal [facility] Specialist Comment on above: Performed By: #### C BCAD, VITD, LIPD, CMP #### [facility] [address] [place], [place] [id number] Cholesterol.total/Ch olesterol in HDL [Mass ratio] 3 {ratio} Normal [facility] Specialist Comment on above: Performed By: #### C BCAD, VITD, LIPD, CMP #### [facility] [address], [place] [id number] Triglyceride [Mass/Vol] 108 mg/dL Normal 30-150 [facility] Lab Engineer Comment on above: Result Comment: TRIG ATPIII CLASSIFICATIONS TRIG less than 150 mg/dl Normal TRIG 150-199 mg/dl Borderline High TRIG 200-500 mg/dl High TRIG greather than 500 mg/dl Very High Performed By: #### C BCAD, VITD, LIPD, CMP #### [facility] [address], [place] [id number] Microalbumin (with Creat)on 04-21-2021 mALB <1.[address] [facility] Specialist Comment on above: Result Comment: Unab le to calculate mALB/Crea ratio, mALB is <1.2 mg/dL mALB reference range not established. Performed By: #### m ALBC #### [facility] [address], [place] [id number] UCREA 183 mg/dL Normal 28-217 [facility] Specialist Comment on above: Performed By: #### m ALBC #### [facility] [address], [place] [id number] Q - URINALYSIS,COMPLETEon Appearance (U) CLEAR Normal CLEAR [facility] Specialist Comment on above: Order Comment: [facility] Testing performed at: [facility], [employer] [facility], [address] , [address] [place] [address], [address] [place] [address], Relaster: Clay Sparrow MD [facility] Collection Date/Time: [facility] Results Received Date/Time: [facility] Reported Date/Time: Performed By: #### 3 4F #### [facility] Default [address] [place] [address] BACTERIA NONE SEEN Normal NONE SEEN [facility] Lab Engineer Comment on above: Order Comment: [facility] performed at: [facility], [employer] [facility], [address], [address] [place] [address], [address] [place] [address], Relaster: Clay Sparrow MD [facility] Date/Time: [facility] Results Received Date/Time: [facility] Reported Date/Time: Performed By: #### 3 4F #### [facility] Default [address] [place] [address] Bilirubin Ql (U) Negative Normal NEGATIVE [facility] Specialist Comment on above: Order Comment: [facility] performed at: [facility], [employer] [facility], [address], [address] [place] [address], [address] [place] [address], Relaster: Clay Sparrow MD [facility] Date/Time: [facility] Results Received Date/Time: [facility] Reported Date/Time: Performed By: #### 3 4F #### [facility] Default [address] [place] [address] Color (U) YELLOW Normal YELLOW [facility] Lab Engineer Comment on above: Order Comment: [facility] performed at: [facility], [employer] [facility], [address] , [address] [place] [address], [address] [place] [address], Relaster: Clay Sparrow MD [facility] Date/Time: [facility] Results Received Date/Time: [facility] Reported Date/Time: Performed By: #### 3 4F #### [facility] Default [address] [place] [address] Glucose Ql (U) Negative Normal NEGATIVE [facility] Lab Engineer Comment on above: Order Comment: [facility] performed at: [facility] [employer] [facility], [address] , [address] [place] [address], [address] [place] [address], Relaster: Clay Sparrow MD [facility] Date/Time: [facility] Results Received Date/Time: [facility] Reported Date/Time: Performed By: #### 3 4F #### [facility] Default [address] [place] [address] HYALINE CAST NONE SEEN Normal NONE SEEN [facility] Lab Engineer Comment on above: Order Comment: [facility] performed at: [facility] [employer] [facility], [address] , [address] [place] [address], [address] [place] [address], Relaster: Clay Sparrow MD [facility] Date/Time: [facility] Results Received Date/Time: [facility] Reported Date/Time: Performed By: #### 3 4F #### [facility] Default [address] [place] [address] Ketones Ql (U) Negative Normal NEGATIVE [facility] Lab Engineer Comment on above: Order Comment: [facility] performed at: [facility] [employer] [facility], [address] , [address] [place] [address], [address] [place] [address], Relaster: Clay Sparrow MD [facility] Date/Time: [facility] Results Received Date/Time: [facility] Reported Date/Time: Performed By: #### 3 4F #### [facility] [address] [place] [address] Leukocyte esterase Test strip Ql (U) TRACE Abnormal NEGATIVE [facility] Lab Engineer Comment on above: Order Comment: [facility] performed at: [facility] [employer] [facility], [address] , [address] [place] [address], [address] [place] [address], Relaster: Clay Sparrow MD [facility] Date/Time: [facility] Results Received Date/Time: [facility] Reported Date/Time: Performed By: #### 3 4F #### [facility] Default [address] [place] [address] Nitrite Ql (U) Negative Normal NEGATIVE [facility] Lab Engineer Comment on above: Order Comment: [facility] performed at: [employer] [employer] [facility], [address] , [address] [place] [address], [address] [place] [address], Relaster: Clay Sparrow MD [facility] Collection Date/Time: [facility] Results Received Date/Time: [facility] Reported Date/Time: Performed By: #### 3 4F #### [facility] Default [address] [place] [address] OCCULT BLOOD Negative Normal NEGATIVE [facility] Lab Engineer Comment on above: Order Comment: [facility] performed at: [employer] [employer] [facility], [address] , [address] [place] [address], [address] [place] [address], Relaster: Clay Sparrow MD [facility] Date/Time: [facility] Results Received Date/Time: [facility] Reported Date/Time: Performed By: #### 3 4F #### [facility] Default [address] [place] [address] pH (U) 6.5 [pH] Normal 5.0-8.0 [facility] Lab Engineer Comment on above: Order Comment: [facility] performed at: [facility] [employer] [facility], [address] [place] [address], [address] [place] [address], [address] [place] [address], Relaster: Clay Sparrow MD [facility] Date/Time: [facility] Results Received Date/Time: [facility] Reported Date/Time: Performed By: #### 3 4F #### [facility] [address] [place] [address] Protein Ql (U) Negative Normal NEGATIVE [facility] Specialist Comment on above: Order Comment: [facility] performed at: [facility] [employer] [facility], [address] [place] [address], [address] [place] [address], [address] [place] [address], Relaster: Clay Sparrow MD [facility] Date/Time: [facility] Results Received Date/Time: [facility] Reported Date/Time: Performed By: #### 3 4F #### [facility] Default [address] [place] [address] RBC NONE SEEN Normal < OR = 2 [facility] Lab Engineer Comment on above: Order Comment: [facility] performed at: [employer] [employer] [facility], [address] [place] [address], [address] [place] [address], [address] [place] [address], Relaster: Clay Sparrow MD [facility] Date/Time: [facility] Results Received Date/Time: [facility] Reported Date/Time: Performed By: #### 3 4F #### [facility] Default [address] [place] [address] Specific gravity (U) [Rel density] 1.025 Normal 1.001-1.035 [facility] Lab Engineer Comment on above: Order Comment: [facility] performed at: [facility], [employer] [facility], [address] , [address] [place] [address], [address] [place] [address], Relaster: Clay Sparrow MD [facility] Date/Time: [facility] Results Received Date/Time: [facility] Reported Date/Time: Performed By: #### 3 4F #### [facility] Default [address] [facility] [place] [address] SQUAMOUS EPITHELIAL CELLS 0-5 Normal < OR = 5 [facility] Lab Engineer Comment on above: Order Comment: [facility] performed at: [employer] [employer] [facility], [address] [facility], [address] [place] [address], [address] [place] [address], Relaster: Clay Sparrow MD [facility] Collection Date/Time: [facility] Results Received Date/Time: [facility] Reported Date/Time: Performed By: #### 3 4F #### [facility] Default [address] [place] [address] WBC NONE SEEN Normal < OR = 5 [facility] Lab Engineer Comment on above: Order Comment: [facility] performed at: [employer], [employer] [facility], [address] [facility], [address] [place] [address], [address] [place] [address], Relaster: Clay Sparrow MD [facility] Date/Time: [facility] Results Received Date/Time: [facility] Reported Date/Time: Performed By: #### 3 4F #### [facility] Default [address] [place] [address] Vitamin D 25-OHon 04-21-2021 VIT D 25 OH 52 ng/ml Normal >29 [facility] Lab Engineer Comment on above: Result Comment: Ashley min D Status Deficiency <20 ng/mL Insufficiency 20-29 ng/mL Optimal 30-100 ng/mL Possible Toxicity >=150 ng/mL Performed By: #### C BCAD, VITD, LIPD, CMP #### [facility] [address] [facility] [place], [place] [id number] XR KNEE GENERAL 4V AP BOTH/P A BOTH/LAT/MERC LTon 12-04-2020 [facility] XR KNEE POST OP 3V AP/LAT/ME RCHANT LTon 04-01-2020 [facility] XR KNEE GENERAL 4V AP BOTH/P A BOTH/LAT/MERC LTon 12-20-2019 [facility] Basic Metabolic Panlon 12-05 Anion gap [Moles/Vol] 8 mmol/L Low 9-18 [facility] Calcium [Mass/Vol] 6.8 mg/dL Low 8.5-10.2 [facility] Chloride [Moles/Vol] 108 mmol/L High 97-105 [facility] CO2 [Moles/Vol] 20 mmol/L Low 22-30 [facility] Creatinine [Mass/Vol] 1.07 mg/dL High 0.58-0.96 [facility] eGFR- Amer. >60 Normal [facility] GFR/1.73 sq M predicted among non-blacks MDRD (S/P/Bld) [Vol rate/Area] 51 . Normal [facility] Comment on above: Result Comment: eGFR (Estimated [...] GFR. Glucose [Mass/Vol] 145 mg/dL High 74-99 [facility] Comment on above: Result Comment: The [place] [employer] Association (ADA) provides guidance for cutoff [...] Standards of Medical Care in Diabetes 2016, [place] [employer]. Diabetes Care. 2016.39(Suppl 1). Potassium [Moles/Vol] 3.3 mmol/L Low 3.7-5.1 [facility] Sodium [Moles/Vol] 136 mmol/L Normal 136-144 [facility]ital Urea nitrogen [Mass/Vol] 21 mg/dL Normal 7-21 [facility] CBCon 12-06-2019 Absolute nRBC <0.01 Normal <0.01 [facility] distribution width (RBC) [Ratio] 12.5 % Normal 11.5-15.0 [facility] Hematocrit (Bld) [Volume fraction] 30.3 % Low 36.0-46.0 [facility] Hemoglobin (Bld) [Mass/Vol] 9.5 g/dL Low 11.5-15.5 [facility] MCH (RBC) [Entitic mass] 30.6 pG Normal 26.0-34.0 [facility] MCHC (RBC) [Mass/Vol] 31.4 g/dL Normal 30.5-36.0 [facility] MCV (RBC) [Entitic vol] 97.7 fL Normal 80.0-100.0 [facility] Platelet mean volume (Bld) [Entitic vol] 10.2 fL Normal 9.0-12.7 [facility] Platelets (Bld) [#/Vol] 188 10*3/uL Normal 150-400 [facility] RBC (Bld) [#/Vol] 3.10 10*6/uL Low 3.90-5.20 [facility] WBC (Bld) [#/Vol] 9.31 10*3/uL Normal 3.70-11.00 [facility] NURSING PROGon 12-06-2019 NURSING PROG HNO ID: [id number] Author: Tae (Rn) LOAN Alvarenga Service: Nursing [...] note was completed by: Tae Alvarenga RN [facility] PLAN OF CAREon 12-06-2019 PLAN OF CARE HNO ID: [id number] Author: Carlie Beltre ([employer]) Service: ? Author Type: ? Type: Plan [...] capsule Commonly known as: MACROBID Carlie Beltre (Medical Appointment Clerk) PAGER: [email or web address] December 06, 2019 3:10 PM [facility] PROGRESSon 12-06-2019 PROGRESS HNO ID: [id number] Author: Taz Dean Service: Orthopaedic Surgery Author [...] Osteoarthritis of Left Knee Breast Asymmetry Between [place] Breast and Reconstructed Breast S/P Partial Mastectomy, Right History of Breast Cancer Mass of Left Knee Tear of Lateral Meniscus of Left Knee Complex Tear of Lateral Meniscus of Left Knee As Current Injury Medication and Non-Pharmacologic VTE Prophylaxis/Anticoagula nts 12/05/19 1300 pneumatic compression stockings ([place]) 12/05/19 1300 graduated compression stockings ([place]) VTE Prophylaxis: VTE prophylaxis appropriate POST OPERATIVE COMPLICATIONS: Complicated by: uneventful/none SIGNATURE: Taz Dean DO PATIENT NAME: Gilda Sorto DATE: December 06, 2019 TIME: 9:46 AM PAGER/CONTACT #: ANNIE ETX#[phone] [facility] THERAPY [facility] 12-06-2019 THERAPY NT HNO ID: [id number] Author: Jessica NavasOtElayne Montes Service: ? Author Type: Occupational Therapist Type: Therapy (PT/OT/Speech/Resp) Filed: 12/06/2019 3:16 PM Note Text: Occupational Therapy Evaluation SERVICE DATE: 12/06/2019 SERVICE TIME: 1423 to 1500 ROOM: [place] [address] Recommended Discharge Disposition: Home Recommended Discharge Disposition [...] of daily living (ADL) Interventions Provided: Evaluation;Self Penitentiary Management (02587) $ Evaluation-Low (09769) Billed Units: 1 unit Self Penitentiary Management (50415) Treatment Minutes: 20 1 unit Skilled Intervention(s): [...] relating to: -functional transfers (use of leg client delivery manager to assist surgical leg in/out of bed, [...] of tub or shower seat/bench w/ leg client delivery manager, importance of grab bars and not bathing [...] Walker;Shower Bench;Wheelchair;Elevat ed Toilet Seat;Long Handled Shoe Horn;Managed Services Sales Consultant Prior Functional Level: Within Functional Limits Prior [...] DATE: December 06, 2019 TIME: 3:10 PM [facility] THERAPY NT HNO ID: [id number] Author: Yadira NavasPtElayne Sher Service: Physical Therapy Author Type: Physical Therapist Type: Therapy (PT/OT/Speech/Resp) Filed: 12/06/2019 3:32 PM Note Text: Physical Therapy Treatment SERVICE DATE: 12/06/2019 SERVICE TIME: 1334 to 1402 ROOM: [place] [address] Recommended Discharge Disposition: Outpatient Physical Therapy Anticipated [...] (ADL);Muscle Weakness (generalized) Interventions Provided: Therapeutic Exercise (22977);Gait Training (04263) Therapeutic Exercise (55813) Treatment Minutes: 13 1 unit Skilled Intervention(s): Instruction in therapeutic exercise Verbal and tactile cuing provided for supine HEP Education in importance of changing positions slowly, staying active Gait Training (81628) Treatment Minutes: 15 2 units Skilled Intervention(s): [...] Walker;Shower Bench;Wheelchair;Elevat ed Toilet Seat;Long Handled Shoe Horn;Managed Services Sales Consultant Prior Functional Level: Within Functional Limits Prior [...] DATE: December 06, 2019 TIME: 2:35 PM [facility] THERAPY NT HNO ID: [id number] Author: Yadira (Pt) Christos Service: Physical Therapy Author Type: Physical Therapist Type: Therapy (PT/OT/Speech/Resp) Filed: 12/06/2019 12:23 PM Note Text: Physical Therapy Treatment SERVICE DATE: 12/06/2019 SERVICE TIME: 1010 to 1050 ROOM: [place] [address] Recommended Discharge Disposition: Outpatient Physical Therapy Anticipated [...] ess on feet Interventions Provided: Therapeutic Exercise (25630);Gait Training (48609) Therapeutic Exercise (60633) Treatment Minutes: 15 1 unit Skilled Intervention(s): Instruction in therapeutic exercise Verbal and tactile cuing provided for proper HEP completion Education in importance of mobility (see flow sheet for exercises completed) Gait Training (57478) Treatment Minutes: 25 2 units Skilled Intervention(s): [...] DATE: December 06, 2019 TIME: 11:10 AM [facility] ANES POSTPROC EVALon 020 ANES POSTPROC EVAL HNO ID: [id number] Author: Bayron Everett Service: ? Author Type: [...] further care per PACU/ICU/floor team. SIGNATURE: Bayron Everett MD PATIENT NAME: Gilda Sorto DATE: December 05, 2019 TIME: 1:23 PM CSN: [id number] [facility] ANES PRE-OPon 12-05-2019 ANES PRE-OP HNO ID: [id number] Author: Bayron Everett Service: ? Author Type: [...] December 05, 2019 TIME: 7:11 AM CSN: [id number] [facility] BRIEF OP NOTon 12-05-2019 BRIEF OP NOT HNO ID: [id number] Author: Taz Dean Service: Orthopaedic Surgery Author Type: Physician Type: Brief Op Note Filed: 12/05/2019 10:38 AM Note Text: TOTAL KNEE ARTHROPLASTY BRIEF OPERATIVE / PROCEDURE NOTE LOG ID: [id number] Surgery/Procedure Date: 12/05/2019 Incision/Procedure Start Time: 8:08 AM Incision Close/Procedure End Time: 10:34 AM Surgeon(s)/Proceduralis t(s) and Nurses Educator(s): Surgeon(s) and Role: * Taz Dean - Primary Physician Nurses Educator: Gavin Ballard Procedure(s): Procedure(s) (LRB): ARTHROPLASTY REPLACE JOINT TOTAL KNEE (Left) Anesthesia: Monitored Anesthesia Care with spinal Peripheral Block Type: Saphenous/Adductor Approach: Median parapatellar Findings: Advanced DJD left knee Estimated Blood Loss: 75 mls Specimens: None Complications: None Implant: Implant Name Type Inv. Item Serial No. Plastics Engineering Teacher Lot No. [id number] No. Used Action INSERT PERSONA 6-9 C-D POLYETHYLENE 10MM ARTICULAR POSTERIOR STABILIZED - [id number] Joint - Knee INSERT PERSONA 6-9 C-D POLYETHYLENE 10MM ARTICULAR POSTERIOR STABILIZED [employer] [id number] Left 1 Implanted COMPONENT 29MM ALL POLY PATELLAR PSN - [id number] Joint - Knee COMPONENT 29MM ALL POLY PATELLAR PSN [employer] [id number] Left 1 Implanted COMPONENT PERSONA 6 NARROW COCR FEMORAL CEMENTED POSTERIOR STABILIZE KNEE - [id number] Joint - Knee COMPONENT PERSONA 6 NARROW COCR FEMORAL CEMENTED POSTERIOR STABILIZE KNEE [employer] [id number] Left 1 Implanted BASEPLATE PERSONA 5D D TIVANIUM TIBIAL CEMENTED STEM KNEE LEFT - [id number] Joint BASEPLATE PERSONA 5D D TIVANIUM TIBIAL CEMENTED STEM KNEE LEFT [employer] [id number] Left 1 Implanted CEMENT SIMPLEX P BONE RADIOPAQUE FULL DOSE STERILE - [id number] Cement / Putty CEMENT SIMPLEX P BONE RADIOPAQUE FULL DOSE STERILE STRY/HOW [employer] [id number] Left 1 Implanted Bearing Surface: Fixed Fixation: Cemented SSI Risk Factors: NA Constraint: Posterior Stabilized Other: None Pre-Op/Pre-Procedure Diagnosis: DJD left knee Post-Op/Post-Procedure Diagnosis: DJD left knee Weight Bearing Status: Weight Bearing As Tolerated SIGNATURE: Taz Dean DO PATIENT NAME: Gilda Sorto DATE: December 05, 2019 TIME: 10:36 AM PAGER/CONTACT #: [facility] CASE MGT INIT [facility] 2019 CASE MGT INIT [facility] ID: [id number] Author: Yanna (Rn) LOAN Barriga Service: Care Management Author Type: Registered Nurse Type: Care Mgt Initial Assessment Filed: 12/05/2019 1:53 PM Note Text: CARE MANAGEMENT: ASSESSMENT AND DISCHARGE PLAN SERVICE DATE: December 05, 2019 SERVICE TIME: 1:52 PM PRIMARY CARE PHYSICIAN: Gonsalo Hubbard MD ADMISSION STATUS: Ambulatory Surgery MEDICAL: [employer] MEDICARE 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 Last discharge within 30 days: No Advance Directive: Current Advance Directive: Health Care Power of Application Spec;Living Will In Chart: Yes Up To Date [...] Emergency Contact: Fareed Sorto Address: [address] [place] [address] [facility] Mobile Relation: Spouse Supportive Patient Contact:: Yes [...] Completely I feel financially burdened by my hbi-jw-axcrer expenses for my prescription medication:: 0 - Disagree Completely Risk Score: 0 Patient is categorized as: Low risk < 2 Are you interested in bedside delivery of your medications? Yes Is Patient Psychosocially Complex?: No ASSESSMENT AND PLAN: Medical Needs: Medical Needs: None Psychosocial Needs: Psychosocial Needs: None FREEDOM OF CHOICE EXPLAINED: [place] of Choice Given: No Reason Not Given: No placements necessary POTENTIAL TRANSITION PLANS Outpatient Therapy Patient from home with spouse. Has equipment. Has OP PT on 12/09 at 11:45 in [place]. SIGNATURE: Yanna Barriga RN PATIENT NAME: Gilda Sorto DATE: December 05, 2019 TIME: 1:52 PM PAGER/CONTACT #: [phone] [facility] NURSING PROGon 12-05-2019 NURSING PROG HNO ID: [id number] Author: Ekaterina NavasRn) LOAN Erickson Service: Nursing Author Type: Registered Nurse Type: Nursing Progress Note Filed: 12/05/2019 12:58 PM Note Text: Nursing Progress Note Patient Name: Gilda Sorto Patient Location: AV Surgery/AV Surgery Daily Note: Patient arrived in room 510 via bed transport. Patient alert and oriented x 3. This note was completed by: Ekaterina Erickson RN [facility] OPERATIVE NOon 12-05-2019 OPERATIVE NO HNO ID: [id number] Author: Taz Dean Service: Orthopaedic Surgery Author Type: Physician Type: Operative Report Filed: 12/05/2019 8:42 PM Note Text: [facility] OPERATIVE REPORT PATIENT NAME: Gilda Sorto AGE: [age] year old SEX: female LOG ID: [id number] SURGERY DATE: 12/05/2019 SURGEON: Taz Dean D.O. AUTOMOTIVE MACHINIST APPRENTICE: Gavin Ballard PA-C, her role in the [...] patellar bone calipers?were? used?to measure the patient's [place] patella and guide the amount of?bone resection needed.? Following this, the articular side of the patella was? resected?with a?bone saw, taking the appropriate amount of bone from the patella.??The? patellar sizing guide was then positioned?and?the patient?matched a 29-mm patellar component.? The appropriate size patellar guide was?positioned and the 3 police pilot holes were drilled. The 29-mm trial patellar [...] followed by interrupted #1?Vicryl suture in a [id number] alternating fashion, sealing off the remaining portions [...] time.? Patient was then transferred to a [place] [facility], and taken to?the recovery room in stable condition having?tolerated the?procedure well.?? Sponge and needle counts were correct.? The case was? clean and? elective.? There were no complications. Incision Start: 8:08 AM Incision Stop: 10:34 AM SIGNATURE: Taz Dean, DATE: December 05, 2019 TIME: 8:33 PM [facility] PT EDon 12-05-2019 PT ED HNO ID: [id number] Author: Jazz (Rn) LOAN Hilario Service: ? Author Type: Registered Nurse Type: Patient Education Filed: 12/05/2019 6:55 AM Note Text: PRE OP LEARNING ASSESSMENT PROCEDURE/SURGERY: left TKR READINESS TO LEARN COGNITIVE ABILITY: Alert and oriented MOTIVATION TO LEARN: Eager FAMILY SUPPORT: None - Unavailable/disinterest ed PATIENT LEARNS BEST BY: Individual Instruction FACTORS AFFECTING LEARNING: None PHYSICAL LIMITATIONS AFFECTING LEARNING: None Normal [facility] THERAPY NTon 12-05-2019 THERAPY NT HNO ID: [id number] Author: Yadira (Pt) Christos Service: Physical Therapy Author Type: Physical Therapist Type: Therapy (PT/OT/Speech/Resp) Filed: 12/05/2019 5:45 PM Note Text: Physical Therapy Evaluation SERVICE DATE: 12/05/2019 SERVICE TIME: to 1703 ROOM: [place] [address] Recommended Discharge Disposition: Outpatient Physical Therapy Anticipated [...] on feet;Difficulty walking-musculoskeletal Interventions Provided: Evaluation;Gait Training (58732);Therapeutic Exercise (13521) $ Evaluation-Low ([id number]) Billed Units: 1 unit Therapeutic Exercise (84166) Treatment Minutes: 10 1 unit Skilled Intervention(s): Instruction in therapeutic exercise Verbal and tactile cuing provided for proper HEP completion Education in knee precautions and pain science Gait Training (55131) Treatment Minutes: 13 1 unit Skilled Intervention(s): [...] DATE: December 05, 2019 TIME: 5:30 PM [facility] Type and Screenon 12-05-2019 ABO/RH(D) Positive [facility] CNPNon 12-04-2019 CNPN Telephone (AVPRAD) GILDA SORTO ([id number]) 1950 F Date Time Provider Department 12/04/19 [...] left knee [M17.12] 10/13/2017 Breast asymmetry between [place] breast and jennifer*12/02/2017 More... S/P partial mastectomy, right [Z90.11] 12/02/2017 More... History of breast cancer [Z85.3] 12/02/2017 More... Mass of left knee [R22.42] 01/05/2018 Tear of lateral meniscus of left knee [S83.282A]01/06/2018 More... Complex tear of lateral meniscus of left knee a*01/06/2018 Encounter Status:Closed by GAVIN BALLARD on 12/04/19 [facility] NURSING PROGon 11-26-2019 NURSING PROG HNO ID: [id number] Author: Stephanie Cuevas (Rn) LOAN Bryant Service: [...] Bryant RN November 30, 2019 10:58 AM [facility] HOSPon 11-01-2019 HOSP Patient:Gilda Sorto MRN: [...] of left knee [M17.12] Breast asymmetry between [place] breast and reconstructed breast [N65.1] S/P partial [...] 44.6 % 11/26/2019 46.0 36.0 Progress Notes ([facility]): Gavin Ballard PA-C 12/04/2019 12:51 PM [...] virus test. Gavin Ballard PA-C Progress Notes ([facility]): Ashleigh Alex APRN.CNP 11/28/2019 8:45 AM Signed Please call patient and advise that on pre-op labs UA showed leukocytes and urine culture revealed possible contaimination Due to surgery being 12/04- will treat with low dose antibiotics for possible infection Rx for Macrobid sent to pharmacy. Advise to start AMBER and take BID for 7 days Thank you Ashleigh Alex APRN.[facility] Na Beltre LPN 11/28/2019 8:56 AM Signed Patient aware. Pharmacy verified. Will picket [employer] and [employer] does this am. Na Beltre LPN Normal [facility] Vital Signs Date Time Vital Sign Value Performing Clinician Faci lity 06-30-2023 09:46-0500 Body mass index (BMI) [Ratio] 35.07 kg/m2 Samia Warren DIRECTOR CAREER SERVICES Work Phone: [facility] 06-30-2023 09:46-0500 Body temperature 97.11 [degF] Samia Warren DIRECTOR CAREER SERVICES Work Phone: [facility] 06-30-2023 09:46-0500 Body weight 89.81 kg Samia Warren DIRECTOR CAREER SERVICES Work Phone: [facility] 06-30-2023 09:46-0500 Diastolic blood pressure 80 mm[Hg] Samia Warren DIRECTOR CAREER SERVICES Work Phone: [facility] 06-30-2023 09:46-0500 Heart rate 96 /min Samia Warren DIRECTOR CAREER SERVICES Work Phone: [facility] 06-30-2023 09:46-0500 SaO2% (BldA) [Mass fraction] 97 % Samia Warren DIRECTOR CAREER SERVICES Work Phone: [facility] 06-30-2023 09:46-0500 Systolic blood pressure 128 mm[Hg] Samia Warren DIRECTOR CAREER SERVICES Work Phone: [facility] 04-16-2022 11:52-0500 Body temperature 98.1 [degF] Sharon Saldivar APRN.UNDERGROUND PRODUCTION FOREPERSON Work Phone: [facility] 04-16-2022 11:52-0500 Diastolic blood pressure 60 mm[Hg] Sharon Sladivar APRN.UNDERGROUND PRODUCTION FOREPERSON Work Phone: [facility] 04-16-2022 11:52-0500 Heart rate 85 /min Sharon Saldivar APRN.UNDERGROUND PRODUCTION FOREPERSON Work Phone: [facility] 04-16-2022 11:52-0500 Respiratory rate 20 /min Sharon Saldivar APRN.UNDERGROUND PRODUCTION FOREPERSON Work Phone: [facility] 04-16-2022 11:52-0500 SaO2% (BldA) [Mass fraction] 100 % Sharon Saldivar APRN.UNDERGROUND PRODUCTION FOREPERSON Work Phone: [facility] 04-16-2022 11:52-0500 Systolic blood pressure 117 mm[Hg] Sharon Saldivar APRN.UNDERGROUND PRODUCTION FOREPERSON Work Phone: [facility] Encounters Encounter Date [...] Start: 04-19-2023 End: 04-19-2023 ambulatory Gonsalo Hubbard Facility:[facility] Start: 04-12-2023 End: 04-12-2023 ambulatory KAYLA MATA Facility:[facility] Start: 05-04-2022 ambulatory JALEN JOHANFREDIMICHELLEVera Facility :UNKNOWN Start: 04-16-2022 End: 04-16-2022 ambulatory GONSALO HUBBARD Facility:[facility] Start: 04-16-2022 Documentation procedure Mammog samantha Coordinator [facility] Start: 04-16-2022 Letter encounter Mammography Coordinator [facility] Department Start: 04-16-2022 End: 04-16-2022 ambulatory Sharon Saldivar APRN.UNDERGROUND PRODUCTION FOREPERSON Work Phone: Hematology/Oncology Comment on above: Encounter for screen ing mammogram for breast cancer (Primary Dx); Stage 1 breast cancer, ER-, left (HCC) Start: 04-16-2022 End: 04-16-2022 Patient encounter procedure Sharon Saldivar APRN.CNP Work Phone: [facility] Start: 04-16-2022 End: 04-16-2022 Subsequent [...] Start: 11-20-2021 Orders Only Sharon Shirley son TOEING STOCKINGSConchaUNDERGROUND PRODUCTION FOREPERSON Work Phone: Hematology/Oncology Comment on above: Encounter [...] 12-04-2020 Subsequent hospital visit by physician Xr [facility] [employer] General Radiology Comment on above: S/P total knee arthr oplasty, left [Z96.652] Start: 04-01-2020 End: 04-01-2020 Subsequent hospital visit by physician Xr [facility] [employer] Work Phone: Radiology Comment on above: post op Start: 12-20-2019 End: 12-20-2019 Subsequent hospital visit by physician Xr [facility] [employer] General Radiology Comment on above: Primary osteoarthrit is of left knee [M17.12] Procedures Date Procedure Procedure Detail Performing Clinician Start: 06-30-2023 STATUS COVID-19/FLU Obie chemo Warren NP Work Phone: Start: 04-16-2022 JAKE SCREENING W JOE An vania Saldivar TOEING STOCKINGS.UNDERGROUND PRODUCTION FOREPERSON Work Phone: Start: 04-16-2022 Mammography Sharon Sanderson parulross TOEING STOCKINGS.UNDERGROUND PRODUCTION FOREPERSON Work Phone: Start: 11-25-2021 Ct angio abd&plvis [...] [address] [place] [address] Gonsalo Hubbard MD [address] [place] [address] [facility] Start: 11-25-2023 DIABETES SCREEN [facility]EN [facility] Start: 11-25-2023 Diabetes Screening Diabetes Screenin g [facility] Start: 04-16-2023 BP CONTROLLED (<130/80) BP CONTROLLE D (<130/80) [facility] Start: 04-16-2023 End: 05-16-2023 JAKE SCREENING JAKE SCREENING Radiology Routine Encounter for screening mammogram for breast cancer Expected: 04/16/2023, Expires: 05/16/2023 [facility] Work Phone: Comment on above: Expected: 04/16/2023 , Expires: 05/16/2023 Start: 04-16-2023 Mammography [facility] Start: 01-14-2023 Covid-19 Vaccine () Covid-19 Vaccine () [facility] Start: 01-14-2023 Influenza vaccination Influenza Vacc ine (#1) [facility] Start: 05-16-2022 Advance Directive Discussion Advance Directive Discussion [facility] Start: 05-16-2022 Depression Assessment Depression Ass essment [facility] Start: 01-14-2022 Influenza vaccination INFLUENZA (#1) [facility] Start: 11-24-2021 Mammography MAMMOGRAM [facility] Start: 11-21-2021 Adult depression screening assessment DEPRESSION SCREENING [facility] Start: 09-23-2021 End: 11-23-2021 CREATININE BLD CREATININE BLD Lab Routine Renal artery aneurysm (HCC) Expected: 09/23/2021, Expires: 11/23/2021 [facility] Work Phone: Comment on above: Expected: 09/23/2021 , Expires: 11/23/2021 Start: 08-08-2021 COVID-19 VACCINE (3 - Booster for Moderna series) COVID-19 VACCINE (3 - Booster for Moderna series) [facility] Start: 07-11-2021 COVID-19 VACCINE (4 - Booster for Moderna series) COVID-19 VACCINE (4 - Booster for Moderna series) [facility] Start: 05-16-2021 ADVANCE DIRECTIVE DISCUSSION ADVANCE DIRECTIVE DISCUSSION [facility] Start: 05-16-2021 DEPRESSION ASSESSMENT DEPRESSION ASS ESSMENT [facility] Start: 09-06-2017 Lipid 1996 panel - S compa or Plasma Lipid Screening [facility] Start: 09-06-2017 LIPID SCREEN LIPID SCREEN [facility] Start: 2015 BONE DENSITY BONE DENSITY [facility] Start: 2015 Bone Density Screening Bone Density Screening [facility] Start: 2015 PNEUMOCOCCAL: 65+ (1 - PCV) PNEUMOCOCCAL: 65+ (1 - PCV) [facility] Start: 2015 PNEUMOVAX AGE 65 AND OVER WITH 5YR LOOKBACK (#1) PNEUMOVAX AGE 65 AND OVER WITH 5YR LOOKBACK (#1) [facility] Start: 11-08-2014 Urine microalbumin profile DTaP,Tdap,Td Vaccine (1 - Tdap) [facility] Start: 2010 RSV Vaccine (1 - 1-d ose 60+ series) RSV Vaccine (1 - 1-dose 60+ series) [facility] Start: 2000 SHINGRIX VACCINE (1 of 2) SHINGRIX VACCINE (1 of 2) [facility] Start: 1995 COLOGUARD (FIT-DNA) COLOGUARD (FIT-D NA) [facility] Start: 1995 Colonoscopy COLONOSCOPY [facility] Start: 1995 COLORECTAL CANCER SCREENING COLORECTAL CANCER SCREENING [facility] Start: [address] COLONOGRAPHY [facility] Start: 1995 FECAL OCCULT BLOOD FECAL OCCULT BLOO D [facility] Start: 1995 SIGMOIDOSCOPY SIGMOIDOSCOPY [facility] Start: 1969 Urine microalbumin profile DTAP,TDAP,TD (1 - Tdap) [facility] Start: 1968 ANNUAL PCP TEAM COUNTY ASSESSOR LOIS DISEASE VISIT ANNUAL PCP TEAM CHRONIC DISEASE VISIT [facility] Start: 1968 BP CONTROLLED (<130/80) BP CONTROLLE D (<130/80) [facility] Start: 1968 HEPATITIS C SCREENING HEPATITIS C SC DAREN [facility] Start: 1950 Screening for malign ant neoplasm of colon [facility] End: 10-23-2022 Ct angio abd&plvis cntrst mtrl w/wo cntrst img CTA ABD/PEL WO/W IVCON Radiology Routine Renal artery aneurysm (HCC) 1 Occurrences starting 09/23/2021 until 10/23/2022 [facility] Work Phone: Comment on above: 1 Occurrences starti ng 09/23/2021 until 10/23/2022 End: 12-20-2022 Screening mammography bi 2-view breast inc cad JAKE SCREENING Radiology Routine Encounter for screening mammogram for breast cancer 1 Occurrences starting 11/20/2021 until 12/20/2022 [facility] Work Phone: Comment on above: 1 Occurrences starti ng 11/20/2021 until 12/20/2022 [facility] Immunizations Immunization Date Immunization Notes Care Provider Sugey hogue 03-19-2023 Influenza, Seasonal, Quadrivalent, Adjuvanted Samia Chadd-Maria Esther DIRECTOR CAREER SERVICES Work Phone: [facility] 03-30-2022 SARS-COV-2 (COVID-19 ) vaccine, mRNA, spike protein, LNP, bivalent, PF Samia Chadd-Maria Esther DIRECTOR CAREER SERVICES Work Phone: [facility] 03-12-2022 Influenza, High-dose Seasonal, Quadrivalent, Preservative Free Samia Chadd-Maria Esther DIRECTOR CAREER SERVICES Work Phone: [facility] 03-12-2022 influenza virus vacc ine, unspecified formulation [facility] 02-12-2021 Influenza, High-dose Seasonal, Quadrivalent, Preservative Free Samia Chadd-Maria Esther DIRECTOR CAREER SERVICES Work Phone: [facility] 07-21-2020 COVID-19 vaccine, fu ll dose (MODERNA) Ct (I-Stat) Work Phone: [facility] 06-23-2020 COVID-19 vaccine, fu ll dose (MODERNA) Ct (I-Stat) Work Phone: [facility] 01-17-2020 influenza, high dose seasonal, preservative-free Samia Chadd-Maria Esther DIRECTOR CAREER SERVICES Work Phone: [facility] 12-24-2019 zoster vaccine recombinant Samia Sanz-Maria Esther DIRECTOR CAREER SERVICES Work Phone: [facility] 10-16-2019 zoster vaccine recombinant Samia Chadd-Maria Esther DIRECTOR CAREER SERVICES Work Phone: [facility] 03-19-2019 pneumococcal polysaccharide vaccine, 23 valent Samia Chadd-Maria Esther DIRECTOR CAREER SERVICES Work Phone: [facility] 03-01-2017 pneumococcal polysaccharide vaccine, 23 valent Samia Chadd-Maria Esther DIRECTOR CAREER SERVICES Work Phone: [facility] 02-13-2017 influenza, injectabl e, quadrivalent, preservative free Samia Sanz-Maria Esther DIRECTOR CAREER SERVICES Work Phone: [facility] 12-06-2016 hepatitis A and hepa titis B vaccine Samia Chadd-Maria Esther DIRECTOR CAREER SERVICES Work Phone: [facility] 05-28-2016 hepatitis A and hepa titis B vaccine Samia Chadd-Maria Esther DIRECTOR CAREER SERVICES Work Phone: [facility] 04-27-2016 hepatitis A and hepa titis B vaccine Samia Chadd-Maria Esther DIRECTOR CAREER SERVICES Work Phone: [facility] 04-27-2016 typhoid capsular polysaccharide vaccine Samia Chadd-Maria Esther DIRECTOR CAREER SERVICES Work Phone: [facility] 03-24-2015 pneumococcal conjuga te vaccine, 13 valent Samia Chadd-Maria Esther DIRECTOR CAREER SERVICES Work Phone: [facility] 03-20-2015 influenza, injectabl e, quadrivalent, preservative free Samia Chadd-Maria Esther DIRECTOR CAREER SERVICES Work Phone: [facility] 11-07-2014 tetanus and diphther ia toxoids, adsorbed, preservative free, for adult use (2 Lf of tetanus toxoid and 2 Lf of diphtheria toxoid) Samiaelliot Sanz-Maria Esther DIRECTOR CAREER SERVICES Work Phone: [facility] 01-08-2013 zoster vaccine, live Samia Chadd-Maria Esther DIRECTOR CAREER SERVICES Work Phone: [facility] Payers Date Payer Category Payer Self-pay 2021 Medicare AETNA MEDICARE A ETNA MEDICARE PPO [id number] 2021-Present [phone] [address] [place] [address] PPO [id number] 2021 Private Health Insurance 101 [id number] 2019 Medicare AETNA MEDICARE A ETNA MEDICARE PPO [id number] 2019-Present [phone] [address] [place] [address] PPO [id number] 2019 Medicare [id number] 1950 Unknown [id number] 93 1950 Unknown [id number] 93 1950 Unknown [id number] 93 1950 Unknown [id number] 93 1950 Unknown [id number] 93 1950 Unknown [id number] 259 1950 Unknown [id number] 259 1950 Unknown [id number] 259 1950 Unknown [id number] 259 1950 Unknown [id number] 259 Unknown [id number] 31 Social History Date Type Detail Facility Start: 05-01-2012 End: 11-29-2022 Tobacco smoking status NHIS Never smoked tobacco [facility] Start: 12-05-2019 End: 11-24-2020 Alcohol intake Current drinker of alcohol (finding) [facility] Start: 11-26-2019 End: 12-05-2019 History SDOH Alcohol Frequency 5 [facility] Start: 11-26-2019 End: 12-05-2019 History SDOH Alcohol Std Drinks 1 [facility] Start: 11-26-2019 History SDOH Alcohol Comment A GLASS OF WINE ALMOST EVERY NIGHT BEFORE BED [facility] Start: 12-05-2019 History SDOH [facility] Start: 1950 Sex Assigned At Not on file [facility] Start: 09-12-2021 End: 09-22-2021 Exposure to SARS-CoV-2 (event) Unable to assess [facility] Start: 11-20-2019 End: 04-16-2022 Exposure to SARS-CoV-2 (event) Not sure [facility] Start: 05-01-2012 End: 11-29-2022 Tobacco use and exposure Smokeless tobacco non-user [facility] Start: 11-26-2019 End: 04-26-2023 History of [facility] function [facility] Work Phone: Start: 11-26-2019 End: 04-26-2023 Alcohol Use Disorder Identification Test - Consumption [AUDIT-C] [facility] Work Phone: How often to you hav e a drink containing alcohol? 4 or more times a week [facility] Work Phone: How many standard dr inks containing alcohol do you have on a typical day? 1 or 2 [facility] Work Phone: How often do you hav e 6 or more drinks on 1 occasion? Never [facility] Work Phone: How hard is it for y ou to pay for the very basics like food, housing, medical care, and heating Not hard at all [facility] (I/We) worried kev er (my/our) food would run out before (I/we) got money to buy more. Never true [facility] Start: 06-30-2023 Alcohol intake Ex-drinker (finding) [facility] Start: 01-15-2023 Alcohol Comment caffeine: 1-2 cups per day of coffee [facility] Start: 1950 Sex Assigned At Female [facility] Start: 12-07-2022 Gender identity Identifies as female gender (finding) [facility] Medical Equipment Procedure Code Equipment Code Equipment Origin al Text Equipment Identifier Dates Cement Simplex P Bone Radiopaque Full Dose Sterile - [id number] Start: 12-05-2019 Shepherd Cv 6x6in Thk1.65mm Ptfe - [id number] Start: 09-12-2012 Insert Persona 6 -9 C-D Polyethylene 10mm Articular Posterior Stabilized - [id number] Start: 12-05-2019 Component 29mm A ll Poly Patellar Psn - [id number] Start: 12-05-2019 Component Person a 6 Narrow Cocr Femoral Cemented Posterior Stabilize Knee - [id number] Start: 12-05-2019 Baseplate Person a 5d D Tivanium Tibial Cemented Stem Knee Left - [id number] Start: 12-05-2019 Clinical Notes 12-20-2019 to 06-30-2023 Samia Warren NP - 06/30/2023 9:45 AM Micheal Saldivar APRN.UNDERGROUND PRODUCTION FOREPERSON - 04/16/2022 12:30 PM Alba Leblanc MA [...] 12/02/2017 Added automatically from request for surgery [id number] Tear of lateral meniscus of knee 01/06/2018 Added automatically from request for surgery [id number] Tonsillitis REVIEW OF SYMPTOMS: Review of Systems [...] follow-ups on file. documented in this encounter [facility] 04-12-2023 Note HNO ID: [id number] Author: Kayla Mata MD Service: ? Author Type: Physician Type: Progress Notes Filed: 04/12/2023 4:51 PM Note Text: PLASTIC SURGERY DEPARTMENT [facility] Hand Surgery Note [x] New referred [...] What........... Reason:........... Upp (more content not included)... [facility] 04-16-2022 Note HNO ID: [id number] Author: Sharon Saldivar APRN.UNDERGROUND PRODUCTION FOREPERSON Service: ? Author Type: Nurse Practitioner Type: [...] which included preparing to see the patient, [id number] patient care, completing clinical documentation, performing a medically appropriate examination, counseling and educating the patient/family/caregiver, ordering medications, tests, or procedures, communicating with other HCPs (not separately reported), independently interpreting results (not separately reported), communicating results to the patient/family/caregiver, and care coordination (not separately reported). Sharon Saldivar APRN.[facility] 04-16-2022 Note HNO ID: [id number] Author: RT Mario(R) Service: ? Author Type: [...] RT Mario(R) April 16, 2022 11:39 AM [facility] 04-16-2022 History of Present illness Narrative ATTENDING [...] which included preparing to see the patient, [id number] patient care, completing clinical documentation, performing a medically appropriate examination, counseling and educating the patient/family/caregiver, ordering medications, tests, or procedures, communicating with other HCPs (not separately reported), independently interpreting results (not separately reported), communicating results to the patient/family/caregiver, and care coordination (not separately reported). Sharon Saldivar APRN.CNP documented in this encounter [facility] 04-16-2022 Nurse Note Additional intake questions: Has the patient had fever, nausea, vomiting, diarrhea, constipation, fatigue for > 1 week? No Does the patient have a decreased appetite? No Does patient want to see a Implementation Architect? No (yes to any of above refer patient to schedulers for dietitian appointment) ) Does patient have any new or increased numbness or tingling of extremities? No Is patient interested in fertility information? No Does patient need any prescription refills? No Does patient have an advanced directive in place? Yes, copies are in Epic documented in this encounter [facility] 04-16-2022 Miscellaneous Notes April 16, 2022 PID: [id number] Gilda Sorto [address] [place] [address] Dear Ms. Sorto, We are pleased to [...] report will be kept on file at [facility] as part of your permanent medical record and are available for your continuing care. Thank you for allowing us to help in meeting your health care needs. Sincerely, Dr. Perez Interpreting Radiologist [facility] (Normal over 40) documented in this encounter [facility] 04-16-2022 History of Present illness Narrative Radiology [...] 2022 11:39 AM documented in this encounter [facility] 11-25-2021 History of Present illness Narrative Radiology [...] TIME: 12:06 PM documented in this encounter [facility] 09-21-2021 Miscellaneous Notes Mrs Sorto called and she would like to schedule her yearly follow up appointment with DR. Ramirez Secretary and cell number: [phone] Kind Regards, Nima Wilkinson documented in this encounter [facility] 04-29-2021 Note HISTORY: Bone densit y screening. [...] signed by Gonsalo Alvarez on 04/29/2021 [id number] [facility] 04-01-2020 History of Present illness Narrative Radiology [...] 2020 1:04 PM documented in this encounter [facility] 12-20-2019 History of Present illness Narrative Radiology [...] 2019 12:45 PM documented in this encounter [facility] Evaluation note Diagnosis Renal artery aneurysm (HCC)- Primary Aneurysm of renal artery Abdominal aortic aneurysm without rupture (HCC) Abdominal aneurysm without mention of rupture [facility] Encounter for screening mammogram for breast cancer- Primary [facility] Diagnosis Renal artery aneurysm (HCC) Aneurysm of renal artery [facility] Diagnosis Encounter for screening mammogram for breast cancer- Primary Stage 1 breast cancer, ER-, left (HCC) [facility] Diagnosis Encounter for screening mammogram for breast cancer [facility] Diagnosis S/P TKR (total knee replacement), left [facility] Diagnosis Primary osteoarthritis of left knee Primary localized osteoarthrosis, lower leg [facility] note* Diagnosis S/P total knee arthroplasty, left documented in this encounter [facility] Diagnosis Viral upper respiratory tract infection- [...] MAMMOGRAPHY BI 2-VIEW BREAST INC Sharon Gallagher, RUPERT.UNDERGROUND PRODUCTION FOREPERSON [address] [place] [address] Br Imaging [address] [place] [address] Referral ID Status Reason Start Date Expiration Date Visits Requested Visits Authorized [id number] Pending Review Auto-Generat ed Referral 11/20/2021 12/20/2022 1 1 [facility] Diagnostic Procedure Only (Routine) - Pending Review Specialty Diagnoses / Procedures Referred By Elisha tang Referred To Contact BR IMAGING Diagnoses Encounter for screening mammogram for breast cancer Procedures JAKE SCREENING SCREENING MAMMOGRAPHY BI 2-VIEW BREAST INC Sharon Gallagher APRN.CNP [address] [place] [address] Br Imaging [address] [facility] [place] [address] Referral ID Status Reason Start Date Expiration Date Visits Requested Visits Authorized [id number] Pending Review Auto-Generat ed Referral 04/16/2023 05/16/2023 1 1 [facility] Summary Purpose Family History No Family History Records FoundNo Family History Records FoundNo Family History Records FoundNo Family History Records FoundNo Family History Records FoundNo Family History Records Found Advance Directives No Advanced Directives Records FoundDocuments on File Type Date Recorded Patient Optical Sales Associate Expl anation Advance Directive(s) Advance Directive(s) 12/05/2019 6:09 AM Advance Directive(s) 04/20/2018 10:36 AM Advance Directive(s) 04/12/2018 2:54 PM Advance Directive(s) 09/18/2012 9:11 PM Documents on File Type Date Recorded Patient Optical Sales Associate Expl anation Advance Directive(s) Advance Directive(s) 12/05/2019 6:09 AM Advance Directive(s) 04/20/2018 10:36 AM Advance Directive(s) 04/12/2018 2:54 PM Advance Directive(s) 09/18/2012 9:11 PM Documents on File Type Date Recorded Patient Optical Sales Associate Expl anation Advance Directive(s) 04/12/2018 2:54 PM Advance Directive(s) 09/18/2012 9:11 PM Documents on File Type Date Recorded Patient Optical Sales Associate Expl anation Advance Directive(s) 04/12/2018 2:54 PM Advance Directive(s) 09/18/2012 9:11 PM Hospital Course Note HNO ID: [id number] Author: Ez Dean Service: Orthopaedic Surgery Author [...] (more content not included)... Note HNO ID: [id number] Author: Melissa Mccarthy Service: ? Author Type: Nurse Health Club Manager Type: Anesthesia Procedure Notes Filed: 12/05/2019 7:44 [...] (more content not included)... Note HNO ID: [id number] Author: Melissa Mccarthy Service: ? Author Type: Nurse Health Club Manager Type: Anesthesia Procedure Notes Filed: 12/05/2019 7:45 AM Note Text: ANESTHESIOLOGY PROCEDURE NOTE Spinal Block General Information Procedure Start Time/Medication Administration: 12/05/2019 7:39 AM Patient location during procedure: ORTimeout Performed Pre-procedure: timeout performed Consent Obtained: Yes (via Surgical Consent) Patient identity confirmed: arm band Reason for Block: primary surgical anesthetic Staffing EDUCATION PARAPROFESSIONAL: Jailene Mccarthy Preparation Sterility Preparation: hand hygiene [...] not included)... Procedure Findings Note HNO ID: [id number] Author: Melissa Mccarthy Service: ? Author Type: Nurse Health Club Manager Type: Anesthesia Procedure Notes Filed: 12/05/2019 7:44 [...] (more content not included)... Note HNO ID: [id number] Author: Melissa Mccarthy Service: ? Author Type: Nurse Health Club Manager Type: Anesthesia Procedure Notes Filed: 12/05/2019 7:45 AM Note Text: ANESTHESIOLOGY PROCEDURE NOTE Spinal Block General Information Procedure Start Time/Medication Administration: 12/05/2019 7:39 AM Patient location during procedure: ORTimeout Performed Pre-procedure: timeout performed Consent Obtained: Yes (via Surgical Consent) Patient identity confirmed: arm band Reason for Block: primary surgical anesthetic Staffing EDUCATION PARAPROFESSIONAL: Jailene Ernst (Practice Performance Manager) Fabio Preparation Sterility Preparation: hand hygiene performed [...] CNTRST MTRL W/WO CNTRST Paco Haddad MD [address] [place] [address] Ct Imaging Referral ID Status Reason Start Date Expiration Date Visits Requested Visits Authorized [id number] Authorized Auto-Generat ed Referral 09/23/2021 10/23/2022 1 1 Additional Source Comments INFORMATION SOURCE (unrecogn ized section and content) DATE CREATED AUTHOR 12/08/2019 [facility] DATE CREATED AUTHOR AUTHOR'S ORGANIZ ATION 10/22/2021 [facility] Me dical Specialist DATE CREATED AUTHOR AUTHOR'S ORGANIZ ATION 05/08/2022 [facility] DATE CREATED AUTHOR AUTHOR'S ORGANIZ ATION 04/14/2023 [facility] DATE CREATED AUTHOR AUTHOR'S ORGANIZ ATION 04/27/2023 [facility] DATE CREATED AUTHOR AUTHOR'S ORGANIZ ATION 01/10/2024 [facility] dical Specialists EPIC Source Comments (unrecognize d section and content) In the event this informatio n is protected by the Federal Confidentiality of Alcohol and Drug Abuse Patient Records regulations: The Federal rules restrict any use of the information to criminally investigate or prosecute any alcohol or drug abuse patient.[facility] the event this information is protected by the Federal Confidentiality of Alcohol and Drug Abuse Patient Records regulations: The Federal rules restrict any use of the information to criminally investigate or prosecute any alcohol or drug abuse patient.[facility] Campus[facility] the event this information is protected by the Federal Confidentiality of Alcohol and Drug Abuse Patient Records regulations: The Federal rules restrict any use of the information to criminally investigate or prosecute any alcohol or drug abuse patient.[facility] the event this information is protected by the Federal Confidentiality of Alcohol and Drug Abuse Patient Records regulations: The Federal rules restrict any use of the information to criminally investigate or prosecute any alcohol or drug abuse patient.[facility] Campus[facility] the event this information is protected by the Federal Confidentiality of Alcohol and Drug Abuse Patient Records regulations: The Federal rules restrict any use of the information to criminally investigate or prosecute any alcohol or drug abuse patient.[facility] the event this information is protected by the Federal Confidentiality of Alcohol and Drug Abuse Patient Records regulations: The Federal rules restrict any use of the information to criminally investigate or prosecute any alcohol or drug abuse patient.[facility] the event this information is protected by the Federal Confidentiality of Alcohol and Drug Abuse Patient Records regulations: The Federal rules restrict any use of the information to criminally investigate or prosecute any alcohol or drug abuse patient.[facility] Campus[facility] the event this information is protected by the Federal Confidentiality of Alcohol and Drug Abuse Patient Records regulations: The Federal rules restrict any use of the information to criminally investigate or prosecute any alcohol or drug abuse patient.[facility] Campus[facility] the event this information is protected by the Federal Confidentiality of Alcohol and Drug Abuse Patient Records regulations: The Federal rules restrict any use of the information to criminally investigate or prosecute any alcohol or drug abuse patient.[facility] Campus[facility] the event this information is protected by the Federal Confidentiality of Alcohol and Drug Abuse Patient Records regulations: The Federal rules restrict any use of the information to criminally investigate or prosecute any alcohol or drug abuse patient.[facility] Reason for Visit (unrecogniz ed section and content) Reason Comments Appointment Reason Comments Radiology CT Specialty Diagnoses / Procedures Referred By Contac t Referred To Contact CT IMAGING Diagnoses Renal artery aneurysm (HCC) Procedures CTA ABD/PEL WO/W IVCON CT ANGIO ABD&PLVIS CNTRST MTRL W/WO CNTRST Paco Haddad MD [address] [place] [address] Ct Imaging Referral ID Status Reason Start Date Expiration Date V isits Requested Visits Authorized [id number] Closed Auto-Generate d Referral 09/23/2021 10/23/2022 1 1 Reason Comments Established Patient Reason Comments Radiology Mammogram Specialty Diagnoses / Procedures Referred By Contac t Referred To Contact BR IMAGING Diagnoses Encounter for screening mammogram for breast cancer Procedures JAKE SCREENING SCREENING MAMMOGRAPHY BI 2-VIEW BREAST INC Sharon Gallagher, TOEING STOCKINGS.UNDERGROUND PRODUCTION FOREPERSON [address] [place] [address] Br Imaging [address] [place] [address] Referral ID Status Reason Start Date Expiration Date V isits Requested Visits Authorized [id number] Closed Auto-Generate d Referral 11/20/2021 12/20/2022 1 1 Reason Comments Radio Gen RMP Reason Comments Radiology XR Reason Comments Cough Nasal Congestion Care Teams (unrecognized sec tion and content) Emt P Relationship Specialty Start Date End Date Gonsalo Hubbard MD [address] [place] [address] PCP - General 08/31/00 Emt P Relationship Specialty Start Date End Date Gonsalo Hubbard MD [address] [place] [address] PCP - General 08/31/00 Emt P Relationship Specialty Start Date End Date Gonsalo Hubbard MD [address] [place] [address] PCP - General 08/31/00 Emt P Relationship Specialty Start Date End Date Gonsalo Hubbard MD [address] [place] [address] PCP - General 08/31/00 Emt P Relationship Specialty Start Date End Date Gonsalo Hubbard MD [address] [place] [address] PCP - General 08/31/00 Emt P Relationship Specialty Start Date End Date Gonsalo Hubbard MD [address] [place] [address] PCP - General 08/31/00 Emt P Relationship Specialty Start Date End Date Gonsalo Hubbard MD [address] [place] [address] PCP - General 08/31/00 Emt P Relationship Specialty Start Date End Date Gonsalo Hubbard MD [address] [place] [address] PCP - [employer] 05/16/21 Gonsalo Hubbard MD [address] [place] [address] PCP - General Internal Medicine 12/07/22 Eliud Weiss DPM [address] [place] [address] Referring Physician Podiatry 04/20/23 Ifeanyi Leavitt MD [address] [place] [address] Consulting Physician Dermatology 04/26/23 Sandro Trejo MD [address] [place] [address] Consulting Physician Ophthalmology 04/26/23 Dr Ramirez [facility] Vascular Surgery 11/25/21 FOR RECORDS PERTAINING [...] BE BASED ON THE PRIMARY CLINICAL RECORDS. [employer] [facility]. provides no warranty or guarantee of the accuracy or completeness of information in this document.
== END 2024-01-24 14:27 | disposition home or self-care (01) ==
LOC: VC 14:26
PROVIDERS: PCP Radiology Diagnostic Radiology; Visit Provider Radiology Diagnostic Radiology
DX: I80.02 Phlebitis and thrombophlebitis of superficial vessels of left lower extremity (principal)
CPT/HCPCS: 93971; G0463

== ENCOUNTER 2024-02-02 10:24 | Outpatient (OUT) | payer MEDICARE, SELFPAY ==
--- NOTE | 2024-02-01 08:39 | V.VEINS.HP ---
Vital Signs 02/02/24 10:29 02/02/24 11:13 Height 5 ft 4 in Weight 95.708 kg BP 126/74 BP Location Left Brachial BP Position Sitting BP Cuff Size Adult BP Source Manual Cuff Respiration 18 Pulse 85 Pulse Source Monitor Pulse Oximetry (%) 98 Oxygen Delivery Method Room Air Comment The patient's blood pressure is elevated. Varicose Veins Patient in this day for microfoam chemical ablation right leg Jb Garcia MD personally performed the services described in this documentation, as scribed by Veto Allred RN in my presence and it is both accurate and complete. IVeto RN, am scribing for, and in the presence of, Dr. Jb Li and in the presence of the patient. thigh: bilateral (symptoms left > right leg), knee: bilateral, calf: bilateral, ankle: bilateral and beltre: bilateral aching, cramping and dull 5 20 years Worsened in recent months: Yes standing elevating extremities, compression stockings and exercise Reports fatigue, heaviness, limb pain, edema and leg edema History of lower extremity trauma: No Superficial thrombophlebitis: No Family history of varicose veins: yes (Patient's mother) Has patient had previous lower extremity venous surgery: Yes Patient has previously received the following treatment(s) for lower extremity varicose veins: Reports sclerotherapy and laser therapy Does patient have a history of : yes Does patient intend to have future pregnancies: no Has patient had lower extremity venous scan with relux testing: Yes Support hose used: Yes Problems walking or doing physical activity: Yes How does it affect you: decreased ability secondary to pain/edema Do you walk much: Yes Do you stand much: No Review of Systems ROS Narrative Jb Garcia MD personally performed the services described in this documentation, as scribed by Veto Allred RN in my presence and it is both accurate and complete. Veto Garcia RN, am scribing for, and in the presence of, Dr. Jb Li and in the presence of the patient. Status of ROS 10 or more systems reviewed and unremarkable except as noted in history and below Cardiovascular Reports: edema Integumentary/Breast Reports: skin pain, skin tenderness and changes in skin color Neurological Reports: weakness in extremities [facility] Medical History (Updated 01/24/24 @ 09:44 by Zandra Mota) Phlebitis and thrombophlebitis of superficial vessels of left lower extremity ?I80.02 - Phlebitis and thrombophlebitis of superficial vessels of left lower extremity (ICD-10) Renal artery aneurysm ?I72.2 - Aneurysm of renal artery (ICD-10) delivery delivered ?O82 - Encounter for delivery without indication (ICD-10) Pain due to varicose veins of both lower extremities ?I83.813 - Varicose veins of bilateral lower extremities with pain (ICD-10) Squamous cell carcinoma Hyperparathyroidism ?E21.3 - Hyperparathyroidism, unspecified (ICD-10) 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 - Other specified disorders of arteries and arterioles (ICD-10) Hypertension ?I10 - Essential (primary) hypertension (ICD-10) Cataract ?H26.9 - Unspecified cataract (ICD-10) Breast cancer ?C50.919 - Malignant neoplasm of unspecified site of unspecified female breast (ICD-10) Arthritis ?M19.90 - Unspecified osteoarthritis, unspecified site (ICD-10) Anxiety ?F41.9 - Anxiety disorder, unspecified (ICD-10) Surgical History (Updated 02/02/24 @ 12:54 by Veto Allred) S/P sclerotherapy of varicose veins ?Z98.890 - Other specified postprocedural states (ICD-10) ?Z86.79 - Personal history of other diseases of the circulatory system (ICD-10) Status post ablation of incompetent vein using laser ?Z98.890 - Other specified postprocedural states (ICD-10) History of arthroplasty of left knee ?Z96.652 - Presence of left artificial knee joint (ICD-10) History of tonsillectomy and adenoidectomy ?Z90.89 - Acquired absence of other organs (ICD-10) H/O: hysterectomy ?Z90.710 - Acquired absence of both cervix and uterus (ICD-10) History of surgical removal of squamous cell carcinoma of skin of christianity region ?Z98.890 - Other specified postprocedural states (ICD-10) ?Z85.828 - Personal history of other malignant neoplasm of skin (ICD-10) H/O parathyroidectomy ?Z98.890 - Other specified postprocedural states (ICD-10) ?Z90.89 - Acquired absence of other organs (ICD-10) Hx of appendectomy ?Z90.49 - Acquired absence of other specified parts of digestive tract (ICD-10) Family History (Updated 01/17/24 @ 11:24 by Veto Allred) Other Family history of hypertension Heart disease Pain due to varicose veins of both lower extremities Social History (Updated 01/17/24 @ 11:24 by Veto Allred) Within the past year, how often did you have a drink containing alcohol: 2-4 times a month Smoking status: Never smoker Non-prescribed substance use: denies use Meds Home Medications and Allergies Home Medications ?Medication ?Instructions ?Recorded ?Confirmed ?Type lorazepam 0.5 mg tablet (Ativan) 0.25 mg PO DAILY PRN anxiety 01/17/24 01/17/24 History multivitamin (Daily Multi-Vitamin 1 tab PO DAILY 01/17/24 01/17/24 History tablet) omeprazole 40 mg capsule,delayed 40 mg PO DAILY 01/17/24 01/17/24 History release triamterene 37.5 1 cap PO DAILY 01/17/24 01/17/24 History mg-hydrochlorothiazide 25 mg capsule zolpidem 5 mg tablet (Ambien) 01/17/24 History Allergies Allergy/AdvReac Type Severity Reaction Status Date / Time TRACY Inhibitors Allergy Severe Swelling Verified 01/17/24 11:28 of Lip/Tongue/Throat doxycycline Allergy Intermediate Rash Verified 01/17/24 11:28 nitrofurantoin Allergy Intermediate Rash Verified 01/17/24 11:28 Sulfa (Sulfonamide Allergy Rash Verified 01/17/24 11:28 Antibiotics) Exam Narrative Exam Narrative: IJb MD personally performed the services described in this documentation, as scribed by Veto Allred RN in my presence and it is both accurate and complete. Veto Garcia RN, am scribing for, and in the presence of, Dr. Jb Li and in the presence of the patient. Constitutional Documenting provider has reviewed patient's vital signs: yes Common normals: oriented x3 Cardio Peripheral pulses: posterior tibial pulses present and dorsalis pedis pulses present Extremity Common normals: normal capillary refill General: calf tenderness and edema Right lower extremity: lower leg Right lower leg: inspection and palpation Left lower extremity: lower leg Left lower leg: inspection and palpation Neuro Common normals: oriented x3 Assessment and Plan Assessment and Plan (1) Pain due to varicose veins of both lower extremities: Plan f/u evaluation with physician along with Jb Garcia MD personally performed the services described in this documentation, as scribed by Veto Allred RN in my presence and it is both accurate and complete. Veto Garcia RN, am scribing for, and in the presence of, Dr. Jb Li and in the presence of the patient. Procedures Procedure Instructions Procedures Right leg microfoam chemical ablation/Varithena: Risks and benefits of the procedure were discussed at length and informed written consent was obtained.? Time-out procedure was performed and the correct patient and procedure were confirmed.? Staff present during time-out: Veto Allred RN and Jb iL MD.? Patient prepped and procedure performed in usual sterile fashion.? Patient was placed in Trendelenburg prior to Polidocanol/Varithena injections. Sclerosing Agent:?? 15cc 1% Polidocanol/Varithena Site Injected: Right lecc varithena administered in to 5mm section of distal GSV 4cc varithena administered in to an 8mm varicose vein distal medial right thigh 4cc varithena administered in to a 3mm varicose vein mid anterior right beltre Number of Injections:? 3 The patient tolerated the procedure well without complication.? Hemostasis was obtained and thigh-high compression stocking was applied with foam pads.? Instructed patient to wear stocking for at least 96 hours and sleep with it and only remove for showering.? The patient was instructed to? wear stocking for 2 weeks.? Patient verbalizes understanding and states they will comply.? Patient was given post-procedure instructions. Patient was discharged in good condition.? Scheduled to undergo limited venous ultrasound and? exam on 02/07/2024 Jb Garcia MD personally performed the services described in this documentation, as scribed by Veto Allred RN in my presence and it is both accurate and complete. Veto Garcia RN, am scribing for, and in the presence of, Dr. Jb Li and in the presence of the patient.
--- NOTE | 2024-02-01 08:46 | W.VEIN ---
Discharge Plan Discharge Disposition: Home, Self-Care Outpatient Diagnostics: VC INJ Foam Sclerosant WUS SUPERVISOR INSULATION (Routine) Timeframe: 2 Weeks Facility: [facility] - Location[facility] Ordered By: Jb Li Follow Up Appointments: 02/08/2024 Plan of Treatment: f/u evaluation with physician along with right leg limited u/s Patient Instructions: Polidocanol (By injection) (Nickia, Anjelthena) Print Language: Vietnamese Discharge Date/Time: 02/02/24 11:51
--- NOTE | 2024-02-02 10:25 | VEIN_ITS ---
[address] [address] Patient Name: JACQUELIN SORTO MRN: [id number] date: 1950 Sex: F Assigned Patient Location: Current Patient Location: Accession/Order Number: [id number] Exam Date: 02/02/2024 10:25 Report Date: 02/02/2024 12:37 At the request of: JABARI SAENZ Procedure: VC INJ Foam Sclerosant [employer] ATTORNEY PROCEDURE: VC INJ Foam Sclerosant [employer]US [employer]OR[employer] ATTORNEY COMPARISON: None. HISTORY: I83.813 - Varicose veins of bilateral lower extremities w... Pre-operative Diagnosis: CEAP class C4a venous insufficiency with pain, tenderness, edema and incompetent right great saphenous and varicose vein(s), chronic venous insufficiency right leg secondary to venous incompetence Post-operative Diagnosis: CEAP class C4a venous insufficiency with pain, tenderness, edema and incompetent right great saphenous and varicose vein(s), chronic venous insufficiency right leg secondary to venous incompetence Procedure Performed: 1. Ultrasound-guided microfoam chemical ablation with Varithenaregistered 2. Intraoperative ultrasound guidance Anesthesia: None Indications for Procedure: 73-year-old female who presents with a long history of lower extremity pain, swelling and varicose veins with hemosiderin staining. The patient failed conservative medical therapy including medical compression stockings, exercise and analgesics. Prior procedures include vein stripping. Multiple incompetent varicosities of the right leg. Duplex scan showed reflux and enlarged diameters up to 8 mm. The patient underwent informed consent including management options where the complications of infection, bleeding, pain, and skin injury were discussed. Particular attention was spent discussing thrombus extension and deep vein thrombosis as well as the possibility of pulmonary embolus and treatment with oral or injectable blood thinners. Procedure: The patient walked to the procedure room. All applicable staff donned appropriate apparel. A procedure timeout was performed to confirm correct patient, correct extremity, correct procedure, and correct room set-up including presence of all applicable supplies, devices, and drugs. A duplex ultrasound, performed by myself confirmed the location and incompetence of branch saphenous varicosities and their course was marked on the skin together with the dilated tributaries. The extent of treatment of the vein and the associated varicosities was determined through ultrasound mapping. The skin was prepped and then punctured with a butterfly needle and advanced under ultrasound guidance. The Varithenaregistered canister was activated and the canister was primed and purged as required in the instructions for use. Varithenaregistered was drawn into a sterile syringe. The following injections were made: 7 cc injected into the right great saphenous vein measuring 5 mm 4 cc injected into a 8 mm varicose vein distal medial right thigh 4 cc injected into a 3 mm varicose vein mid anterior right beltre Varithenaregistered was slowly administered at 0.5-1.0 cc/second with close observation by ultrasound of its course in the vessels. Total volume utilized was: 15cc. Following administration of Varithenaregistered the leg was elevated and the patient was asked to repeatedly dorsiflex the ankle to limit flow of Varithenaregistered into perforating veins. Once appropriate spasm had been confirmed in the treated veins, the vascular catheter was removed from the leg and light pressure was applied over the puncture site for hemostasis. The common femoral and deep superficial veins were then evaluated for flow and compressibility prior to dressing placement. The lower extremity was kept elevated at 45 degrees above the horizontal and cording material was applied over the saphenous segments and tributaries to allow for eccentric compression over the target vessels including the targeted saphenous vein(s). A multilayer dressing was applied consisting of foam pads, coban and thigh-high 20-30 mm Hg compression elastic support hose were placed on the patient. The leg was lowered only after compression had been applied and the patient was immediately ambulatory. The patient ambulated 10 minutes under supervision and was without apparent concerns at time of release. Post-care instructions include advising patient to keep post-treatment bandages in place and dry for 48 hours, avoid extended periods of inactivity, avoid heavy exercise for one week, wear compression stockings on the treated leg continuously for two weeks, to walk daily for 10 minutes over the next month. The patient was instructed to take an anti-inflammatory medicine as needed and to follow up for color duplex scan of the Saphenous veins, the treated branch saphenous varicosities, the adjacent deep veins, and additional treatment within 7 days. PERSONNEL: Veto Allred RN Electronically authenticated by: JABARI SAENZ Date: 02/02/2024 12:37
[2024-02-02 10:29] VITALS: BP 126/74; PULSE 85; O2SAT 98
--- OUTSIDE RECORDS SUMMARY | 2024-02-02 10:30 | XMS_ITS | CCD ---
Author Organization [facility] Care Team Providers Care Gore Stitcher Name Role Phone Gonsalo Hubbard MD Primary [...] Leavitt MD Unavailable Sandro Trejo MD Unavailable [phone] GONSALO HUBBARD Referring Unavailable SAMIA SANZ Attending Unavailable GONSALO HUBBARD Attending Unavailable GRAZYNA BERMUDEZ Attending Unavailable GRAZYNA BERMUDEZ Referring Unavailable GONSALO HUBBARD Attending Unavailable Zaki JACK, Gonsalo Ch Primary Care Provider Allergies Allergy Classification Reported Allergen(s) Allergy Type Date of Onset Reaction(s) Facility (14 sources) Doxycycline; Translations: [DOXYCYCLINE] Drug Allergy 8 Rash [facility] Work Phone: (14 sources) Sulfonamides (Antibiotic); Translations: [SULFA (SULFONAMIDE ANTIBIOTICS)] Drug Allergy 4 Anaphylaxis, Unknown [facility] (1 source) Doxycycline Drug Allergy 2 [facility] (1 source) Sulfonamides (Antibiotic) Drug allergy (disorder) 2 [facility] (2 sources) Angiotensin-conver ting enzyme inhibitor agent Drug Allergy 3 Angioedema [facility] (2 sources) Nitrofurantoin Drug Allergy 3 GI intolerance [facility] Medications Current Medications Medication Drug Class(es) Dates Sig (Normalized) Sig (Original) ALPRAZolam 0.25 mg oral tablet (11 sources) Benzodiazepine Start: 09-03-2014 ALPRAZolam (XANAX) 0.25 mg tablet Take 1 tablet by mouth as needed. 09/03/2014 Active Comment on above: Take 1 tablet by twyla as needed. aluminum hydroxide 80 mg / magnesium trisilicate 14.2 mg chewable tablet (2 sources) Alum Hydroxide-Mag Trisilicate (Gaviscon) 80-14.2 MG chewable tablet Chew 1 tablet if needed. 0 Active amoxicillin 500 mg oral capsule (8 sources) Penicillin-class Antibacterial Start: 02-26-2021 amoxicillin (POLYMOX, AMOXIL) 500 mg capsule Take 4 capsules by mouth 1 hour before dental procedure 20 capsule 02/26/2021 Active Comment on above: Take 4 capsules by [facility] 1 hour before dental procedure ascorbic acid 60 mg / beta carotene 5000 unt / copper sulfate 40 mg / dl-alpha tocopheryl acetate 30 unt / sodium selenite 0.04 mg / zinc oxide 40 mg oral tablet (2 sources) Vitamin C take 1 tablet by mouth once daily Multiple Vitamin (Multivitamin Adult) tablet Take 1 tablet by mouth 1 (one) time each day. 0 Active Ascorbic Acid / Beta Carotene / cuprous oxide / Lutein / sodium selenate / Vitamin E / Zinc Oxide (11 sources) Vitamin C Start: 03-25-2004 OCUVITE TABLET takes one per day 0 03/25/2004 Active Comment on above: takes one per day bifidobacterium infantis 4 mg oral capsule (2 sources) End: 06-30-2023 take 1 capsule by mouth once daily Probiotic Product (Align) capsule Take 1 capsule by mouth 1 (one) time each day at the same time. 0 06/30/2023 Discontinued (Other) citalopram 10 mg oral tablet (13 sources) Serotonin Reuptake Inhibitor take 1 tablet by mouth once daily citalopram hydrobromide 10 mg tablet Take 10 mg by mouth once daily. Active Comment on above: Take 10 mg by mouth once daily. docusate sodium 100 mg oral capsule (11 sources) Start: 12-06-2019 take 1 capsule by mouth every twelve hours as needed docusate sodium (COLACE) 100 mg capsule Take 1 capsule by mouth twice daily as needed for Constipation. 60 capsule 12/06/2019 Active Comment on above: Take 1 capsule by mo ut twice daily as needed for Constipation. eye vitamin supplement (Ocuvite Eye Health Formula) [...] mg / triamterene 37.5 mg oral capsule (13 sources) Potassium-sparing Diuretic, Thiazide Diuretic Start: 03-25-2023 take 1 capsule by mouth in the morning triamterene-hydr oCHLOROthiazide (Dyazide) 37.5-25 MG capsule Indications: Essential hypertension (CMS/HCC) Take 1 capsule by mouth in the morning. 90 capsule 3 03/25/2023 Active Start: 09-12-2014 take 1 capsule by mouth once daily triamterene-hydrochlorothiazide 37.5-25 mg per capsule Take 1 capsule by mouth once daily. 09/12/2014 Active Comment on above: Take 1 capsule by mo ut once daily. levocetirizine dihydrochloride 5 mg oral [...] MG tablet Indications: SIOBHAN (generalized anxiety disorder) ([facility]) Take 1 tablet (0.5 mg) by mouth every 8 (eight) hours if needed for anxiety 30 tablet 0 04/26/2023 Active lysine 500 mg oral tablet (11 sources) Start: 2003 L-LYSINE 500MG TABLET takes daily 0 03/25/2004 Active Comment on above: takes daily MISC NATURAL PRODUCTS PO (2 sources) MISC [...] before meals. 90 capsule 3 03/25/2023 Active OTC NUTRITIONAL SUPPLEMENT (11 sources) take 1 tablet by mouth once daily OTC NUTRITIONAL SUPPLEMENT Take 1 tablet by mouth once daily. Allergy medication Active take 1 tablet by mouth once guillermo y OTC NUTRITIONAL SUPPLEMENT Take 1 tablet by mouth once daily. Allergy medication 0 Active Comment on above: Take 1 tablet by twyla th once daily. Allergy medication potassium chloride 10 meq extended release oral tablet (4 sources) take 1 tablet by mouth twice daily potassium chloride (K-TAB) 10 mEq tablet Take 10 mEq by mouth twice daily. Active Comment on above: Take 10 mEq by mouth twice daily. zolpidem tartrate 5 mg oral tablet (13 sources) gamma-Aminobutyric Acid-ergic Agonist Start: 09-25-2014 End: 11-01-2023 take 1 tablet by mouth once daily zolpidem (Ambien) 5 MG tablet Indications: Primary insomnia Take 1 tablet (5 mg) by mouth 1 (one) time each day at the same time 90 tablet 1 05/05/2023 11/01/2023 Active Comment on above: Take 1 tablet by twyla th daily at bedtime. Completed/Discontinued Medications Medication Drug Class(es) Dates Sig (Normalized) Sig (Original) aspirin 325 mg delayed release oral tablet [...] 1 tablet by twyla th twice daily. Problems Active Problems Problem Classification Problem Date Documented Date Episodic/Chronic Acquired foot deformities (2 sources) Hammer toe; Translations: [Other hammer toe(s) (acquired), right foot] Onset: 11-29-2022 11-29-2022 Chronic Anxiety disorders (2 sources) Generalized anxiety disorder; Translations: [Generalized anxiety disorder] Onset: 11-29-2022 11-29-2022 Chronic Aortic; peripheral; and visceral artery aneurysms (16 sources) Aneurysm of renal artery; Translations: [Aneurysm of renal artery] Onset: 09-14-2012 05-11-2021 Chronic Cancer of breast (20 sources) Malignant neoplasm of female breast; Translations: [Malignant neoplasm of unspecified site of unspecified female breast] Onset: 11-09-2007 11-12-2017 Chronic Chronic kidney disease (3 sources) Chronic kidney disease, unspecified; Translations: [Chronic kidney disease stage 3A ] Onset: 12-15-2021 11-29-2022 Chronic Diverticulosis and diverticulitis (2 sources) Diverticular disease; Translations: [Diverticulosis of intestine, part unspecified, without perforation or abscess without bleeding] Onset: 11-29-2022 11-29-2022 Chronic Esophageal disorders (2 sources) Gastroesophageal reflux disease; Translations: [Gastro-esophageal reflux disease without esophagitis] Onset: 11-29-2022 11-29-2022 Chronic Essential hypertension (13 sources) Hypertensive disorder; Translations: [Essential (primary) hypertension] [...] Chronic Other ear and sense organ disorders (13 sources) Sensorineural hearing loss; Translations: [Unspecified sensorineural [...] Chronic Other nutritional; endocrine; and metabolic disorders (5 sources) Morbid obesity; Translations: [Morbid (severe) obesity [...] Translations: [Insomnia, unspecified] Onset: 11-29-2022 06-30-2023 Episodic Residual codes; unclassified (1 source) Pain; Translations: [Pain, unspecified] 04-12-2023 Episodic Unclassified (11 sources) DISPOSITION AND FOLLOW-UP Onset: 09-14-2012 05-11-2021 [...] antibiotic agents status] Onset: 12-15-2021 11-29-2022 Episodic Cancer of breast (16 sources) History of malignant neoplasm of breast; Translations: [Personal history of malignant neoplasm of breast] Onset: 12-02-2017 12-02-2017 Episodic Joint disorders and dislocations; trauma-related (20 sources) Acute tear of medial meniscus of left knee; Translations: [Other tear of medial meniscus, current injury, left knee, initial encounter] Onset: 10-13-2017 Resolved: 04-26-2023 10-27-2017 Episodic Nonmalignant breast conditions (11 sources) Breasts asymmetrical; Translations: [Disproportion of reconstructed breast] Onset: 12-02-2017 12-02-2017 Episodic Other aftercare (1 source) Other medical terminologist (current) drug therapy; Translations: [Other assisted (current) drug therapy] Onset: 01-12-2022 Episodic Other [...] 11-29-2022 11-29-2022 Episodic Other nervous system disorders (11 sources) Abnormal gait; Translations: [Unspecified abnormalities of gait and mobility] Onset: 12-12-2019 12-12-2019 Episodic Other non-epithelial cancer of skin (1 source) Personal history of other malignant neoplasm of skin; Translations: [Personal history of other malignant neoplasm of skin] Onset: 12-15-2021 Episodic Other non-traumatic joint disorders (8 sources) Pain of right shoulder joint; Translations: [...] Onset: 07-21-2006 11-24-2020 Episodic Other skin disorders (11 sources) Disorder of skin; Translations: [Hypertrophic disorder of the skin, unspecified] Onset: 03-25-2004 03-25-2004 Episodic Other skin disorders (11 sources) Mass of knee; Translations: [Localized swelling, mass and lump, left lower limb] Onset: 01-05-2018 01-06-2018 Episodic Otitis media and related conditions (11 sources) Dysfunction of eustachian tube; Translations: [Other specified disorders of Eustachian tube, unspecified ear] Onset: 11-26-2004 11-26-2004 Episodic Residual codes; unclassified (9 sources) History of right mastectomy; Translations: [Acquired [...] diverticulosis without diverticulitis. ELECTRONICALLY SIGNED BY: Gonsalo Alvarez, Normal Not Available Laboratory - Microbiology an d Antimicrobial susceptibilityon 06-30-2023 SARS-CoV-2 (COVID-19) RNA ANGELICA+probe Ql (Unsp spec) Negative [facility] No Panel Informationon 06-30 FLU A Negative [facility] FLU B Negative [facility] MM screening mammo BI w/CADo n 04-19-2023 MM screening mammo BI w/CAD [facility] Main [place] [address] [place] [address] Mammography Report Signed Patient: Gilda Sorto MR#: [id number] 0 : 1950 Acct:[id number] Age/Sex: 72 / F ADM Date: 04/19/23 Loc: [place] Room: Type: [facility] Attending Dr: Gonsalo Hubbard MD Copies to: [...] Azam Cason M.D.04/19/2023 1:37 PM Dictation Location: [facility] Transcribed By: ISABELA 04/19/231336 Dictated By: Azam Cason II, MD 04/19/231331 Signed By: 04/19/231336 [facility] CNOVon 04-12-2023 CNOV Office Visit (PLASST ) GILDA SORTO ([id number]) 1950 F Date Time Provider Department 04/12/23 1:00 PM KAYLA MATA During your visit today, we recorded the following information about you: Kayla Mata MD 04/12/2023 4:51 PM Signed PLASTIC SURGERY DEPARTMENT [facility] Hand Surgery Note [x] New referred by [...] [x] Anticoagula (more content not included)... Normal [facility] No Panel Informationon 04-12 Radiology Study observation (narrative) [facility] XR HAND 3V PA/LAT/OBL BILon 04-12-2023 XR [...] 1. Osteoarthritis of both hands and wrists. Financial Services Sales Representative: CHARLOTTE Transcribe Date/Time: Apr 12 2023 1:52P Dictated by : EDITH LAZO MD This examination was interpreted and the report reviewed and electronically signed by: EDITH LAZO MD on Apr 12 2023 1:54PM EST [id number] Normal [facility] XR Hand - bilateral PA and L ateral and Obliqueon 04-12-2023 IMPRESSION: 1. Osteoarthritis of both hands and wrists. Financial Services Sales Representative: CHARLOTTE Transcribe Date/Time: Apr 12 2023 1:52P Dictated by : EDITH LAZO MD This examination was interpreted and the report reviewed and electronically signed by: EDITH LAZO MD on Apr 12 2023 1:54PM [facility] DIVISION OF RADIOLOGY * * *Final Report* * * DATE [...] interphalangeal joints. No osseous erosions are demonstrated. DIVISION OF RADIOLOGY Provider, [facility] - 04/12/2023 * * *Final Report* * * DATE [...] interphalangeal joints. No osseous erosions are demonstrated. IMPRESSION IMPRESSION: 1. Osteoarthritis of both hands and wrists. Financial Services Sales Representative: CHARLOTTE Transcribe Date/Time: Apr 12 2023 1:52P Dictated by : EDITH LAZO MD This examination was interpreted and the report reviewed and electronically signed by: EDITH LAZO MD on Apr 12 2023 1:54PM EST [facility] XR Hand - bilateral PA and L ateral and ObliqueOrdered By: [facility] Provider on 04-12-2023 [facility] XR WRIST 3V PA/LAT/OBL BILon 04-12-2023 XR [...] IMPRESSION: 1. Degenerative arthrosis of both wrists. Financial Services Sales Representative: [facility] Transcribe Date/Time: Apr 12 2023 1:54P Dictated by : EDITH LAZO MD This examination was interpreted and the report reviewed and electronically signed by: EDITH LAZO MD on Apr 12 2023 1:55PM EST [id number] Normal [facility] XR Wrist - bilateral PA and Lateral and Obliqueon 04-12-2023 IMPRESSION: 1. Degenerative arthrosis of both wrists. Financial Services Sales Representative: CHARLOTTE Transcribe Date/Time: Apr 12 2023 1:54P Dictated by : EDITH LAZO MD This examination was interpreted and the report reviewed and electronically signed by: EDITH LAZO MD on Apr 12 2023 1:55PM EST DIVISION OF RADIOLOGY * * *Final Report* * * DATE [...] interphalangeal joints. No osseous erosions are demonstrated. DIVISION OF RADIOLOGY Provider, [facility] - 04/12/2023 * * *Final Report* * * DATE [...] interphalangeal joints. No osseous erosions are demonstrated. IMPRESSION IMPRESSION: 1. Degenerative arthrosis of both wrists. Financial Services Sales Representative: CHARLOTTE Transcribe Date/Time: Apr 12 2023 1:54P Dictated by : EDITH LAZO MD This examination was interpreted and the report reviewed and electronically signed by: EDITH LAZO MD on Apr 12 2023 1:55PM EST [facility] CNCOon 04-16-2022 CNCO HNO ID: [id number] Author: Mammography Coordinator Service: ? Author Type: Physician Type: Letter Filed: 04/19/2022 11:36 PM Note Text: April 16, 2022 PID: [id number] Gilda Sorto [address] [place] [address] Dear Ms. Sorto, We are pleased to [...] report will be kept on file at [facility] as part of your permanent medical record and are available for your continuing care. Thank you for allowing us to help in meeting your health care needs. Sincerely, Dr. Perez Interpreting Radiologist [facility] (Normal over 40) Normal [facility] CNOVSPon 04-16-2022 CNOVSP Visit (SP) Office (HEMCA4) GILDA SORTO ([id number]) 1950 F Date Time Provider Department 04/16/22 12:30 PM SHARON SALDIVAR [facility] During your visit today, we recorded the following information about you: Temperature Pulse Respiration Blood pressure 98.1 degrees 85/minute 20/minute 117/60 Sue Leblanc MA 04/16/2022 11:54 AM Signed Additional intake questions: Has the patient had fever, nausea, vomiting, diarrhea, constipation, fatigue for > 1 week? No Does the patient have a decreased appetite? No Does patient want to see a Bulb Tester? No (yes to any of above refer patient to schedulers for dietitian appointment) ) Does patient have any new or increased numbness or tingling of extremities? No Is patient interested in fertility information? No Does patient need any prescription refills? No Does patient have an advanced directive in place? Yes, copies are in Epic Electronically Signed By: WESLEY Thomas APRN.FOOD BEVERAGE SUPERVISOR 04/16/2022 2:06 PM Signed ATTENDING PHYSICIAN: Dr. [...] which included preparing to see the patient, [id number] patient care, completing clinical documentation, performing a medically appropriate examination, counseling and educating the patient/family/caregive r, ordering medications, tests, or procedures, communicating with other HCPs (not separately reported), independently interpreting results (not separately reported), communicating results to the patient/family/caregive r, and care coordination (not separately reported). Sharon Saldivar APRN.[facility] Referring Provider: SHARON SALDIVAR [[id number]] Allergies As of Date: 04/16/2022 Noted Allergy [...] Z17.1] Order(s):WESLEY (more content not included)... Normal [facility] JAKE SCREENING W TOMOon 04-16 JAKE SCREENING W JOE * * *Final Report* * * DATE OF EXAM: Apr 16 2022 11:12AM CAW 0582 - JAKE SCREENING W JOE / PROCEDURE REASON: Encounter for screening mammogram for breast cancer * * * * Physician Interpretation * * * * RESULT: #[id number] - JAKE SCREENING W JOE BILATERAL DIGITAL [...] to exams dated: 11/24/2020 mammogram - [facility], 11/22/2019 mammogram, 11/14/2018 mammogram - [facility], 11/11/2017 mammogram, and 11/02/2016 mammogram - [facility]. There are scattered fibroglandular elements in both [...] screening mammogram is recommended. Bernardo garay/ayde:04/16/2022 11:38:26 Transfer Car Operator Drier(s): RT Mario(Mason)(M)(BS), [facility] letter sent: Normal over 40 Mammogram BI-RADS: [...] Health, Family Medicine, and Medical/Surgical Oncology, the [facility] has carefully reviewed the data and reached [...] their providers when to stop screening mammograms. Financial Services Sales Representative: Ayde Transcribe Date/Time: Apr 16 2022 11:12A Dictated by : BERNARDO PEREZ MD This examination was interpreted and the report reviewed and electronically signed by: BERNARDO PEREZ MD on Apr 16 2022 11:38AM EST [id number] [facility] SARS-CoV-2,INFLUENZA A/B NUC LEI ACID TESTon 12-15-2021 EUA DISCLAIMER [facility] Comment on above: Result [...] is terminated or revoked sooner. Performed [place] [facility] [address] [facility] [address] FLU A by PCR Negative [facility] FLU B by PCR Negative [facility] SARS-CoV-2 (COVID-19) RNA ANGELICA+probe Ql (Unsp spec) Abnormal NEG [facility] Comment on above: Result Comment: Posi tive for COVID-19 CRITICAL VALUE-PHYSICIAN MUST BE NOTIFIED RESULTS PHONED TO: Carmel Tinajero RN at 0928 VERBAL RESULT VERIFICATION RECEIVED EUA DISCLAIMER Normal [facility] Comment on above: Result Comment: [...] is terminated or revoked sooner. Performed at [place] [address] FLU A by PCR Negative Normal [facility] FLU B by PCR Negative Normal [facility] SARS-CoV-2 (COVID-19) RNA ANGELICA+probe Ql (Unsp spec) Abnormal NEG [facility] Comment on above: Result Comment: Posi tive for COVID-19 CRTV RESULTS PHONED TO: Jenny Fitzpatrick RN at 0854 VERBAL RESULT VERIFICATION RECEIVED CBC with Diffon 12-09-2021 AB IMMATURE NEUT 0.02 K/UL Normal 0.0-0.1 [facility] ABS BASO 0.02 K/UL Normal 0.00-0.22 [facility] ABS EOS 0.32 K/UL Normal 0-0.45 [facility] ABS NEUTROPHILS 4.34 K/UL Normal 1.8-7.7 [facility] ABS.NEUT.CALCULATED 4.34 K/UL Normal [facility] Comment on above: Result Comment: Perf ormed at [address] [address] Basophils/100 WBC (Bld) 0.30 % Normal 0-1 [...] WBC (Bld) [#/Vol] 6.3 10*3/uL Normal 4.5-11.[address] [facility] COMPREHENSIVE METABOLIC PANE Juanito 12-09-2021 Albumin [Mass/Vol] 4.2 g/dL Normal 3.5-5.[address] [facility] Albumin/Globulin [Mass ratio] 1.6 {ratio} Normal [...] Hospital Calcium [Mass/Vol] 9.4 mg/dL Normal 8.5-10.[address] [facility] Chloride [Moles/Vol] 103 mmol/L Normal 97-107 [facility] CO2 [Moles/Vol] 31 mmol/L Normal 24-31 [facility] Creatinine [Mass/Vol] 1.2 mg/dL Normal 0.4-1.6 [facility] ESTIMATED GFR 48 mL/min/1.73 m2 Normal [facility] Comment on above: Result Comment: CALCULATIONS OF ESTIMATED GFR ARE PERFORMED USING THE 2020 CKD-EPI STUDY REFIT EQUATION WITHOUT THE RACE VARIABLE FOR THE IDMS-TRACEABLE CREATININE METHODS. https://jasn.asnjournals.org/content/early//ASN.5740043 988 Performed at [place] [address] Globulin (S) [Mass/Vol] 2.6 g/dL Normal 1.9-3.7 [facility] Glucose [Mass/Vol] 87 mg/dL Normal 65-[address] [facility] Potassium [Moles/Vol] 4.8 mmol/L Normal 3.4-5.1 [facility] Protein [Mass/Vol] 6.8 g/dL Normal 5.9-7.[address] [facility] Sodium [Moles/Vol] 141 mmol/L Normal 133-[address] [facility] Urea nitrogen [Mass/Vol] 13 mg/dL Normal 8-25 [facility] Urea nitrogen/Creatinine [Mass ratio] 10.8 mg/mg Normal 8-21 [facility] UA-REFLEX TO CULTUREon 12-09 EPI Normal [facility] Comment on above: Result Comment: Occa sional SQUAMOUS Performed at [address] [address] RBC NONE SEEN Normal 0-3 [facility] Urinalysis dipstick W Reflex Microscopic panel (U) MANUAL MICROSCOPIC URINES Normal [facility] WBC NONE SEEN Normal 0-3 [facility] Bacteria identified Cx Nom (U) CULTURE NOT INDICATED Normal [facility] Comment on above: Result Comment: CULT URE NOT INDICATED Performed at [address] [address] BILI Negative Normal NEG [facility] Clarity (U) CLEAR Normal [facility] Color (U) YELLOW Normal [facility] GLUC Negative Normal NEG [facility] Hemoglobin Ql (U) Negative Normal NEG [facility] KET Negative Normal NEG [facility] LEUK Negative Normal NEG [facility] NIT Negative Normal NEG [facility] pH (U) 8.0 [pH] Normal 4.6-8.0 [facility] PROT Negative Normal NEG [facility] SP GRAV,URINE 1.015 Normal 1.005-1.030 [facility] URO 0.2 MG/DL Normal 0-1.0 [facility] CREATININE, BLOOD (POC)on Creatinine [Mass/Vol] 1.20 mg/dL 0.7 - 1.4 mg/dL [facility] eGFR (POCT) 48 mL/min/1.73 m2 [facility] CTA ABD/PEL W IVCONon 2021 [facility] MRI Shoulder w/o Righton MRI Shoulder w/o [...] by Gonsalo Alvarez on 10/21/2021 1010 Normal [facility] Specialist Complete Blood Count with Au to Diffon 04-21-2021 Basophils (Bld) [#/Vol] 0.03 10*3/uL Normal 0.00-0.20 [facility] Comment on above: Performed By: #### C BCAD, VITD, LIPD, CMP #### [facility] [address] [place], [place] [id number] Basophils/100 WBC (Bld) 0.5 % Normal [facility] Specialist Comment on above: Performed By: #### C BCAD, VITD, LIPD, CMP #### [facility] [address] [place], [place] [id number] Eosinophils (Bld) [#/Vol] 0.27 10*3/uL Normal 0.02-0.50 [facility] Specialist Comment on above: Performed By: #### C BCAD, VITD, LIPD, CMP #### [facility] [address] [place], [place] [id number] Eosinophils/100 WBC (Bld) 4.6 % Normal [facility] [employer] Comment on above: Performed By: #### C BCAD, VITD, LIPD, CMP #### [facility] [address] [place], [place] [id number] Erythrocyte distribution width (RBC) [Ratio] 13.1 % Normal 11.0-15.0 [facility] Specialist Comment on above: Performed By: #### C BCAD, VITD, LIPD, CMP #### [facility] [address] [place], [place] [id number] Hematocrit (Bld) [Volume fraction] 43.9 % Normal 35.0-47.0 [facility] Specialist Comment on above: Performed By: #### C BCAD, VITD, LIPD, CMP #### [facility] [address] [place], [place] [id number] Hemoglobin (Bld) [Mass/Vol] 14.0 g/dL Normal 11.6-15.5 [facility] Specialist Comment on above: Performed By: #### C BCAD, VITD, LIPD, CMP #### [facility] [address] [place], [place] [id number] Lymphocytes (Bld) [#/Vol] 1.9 10*3/uL Normal 0.9-3.9 [facility] Specialist Comment on above: Performed By: #### C BCAD, VITD, LIPD, CMP #### [facility] [address] [place], [place] [id number] Lymphocytes/100 WBC (Bld) 31.8 % Normal [facility] Specialist Comment on above: Performed By: #### C BCAD, VITD, LIPD, CMP #### [facility] [address], [place] [id number] MCH (RBC) [Entitic mass] 30.0 pg Normal 27.0-33.0 [facility] Specialist Comment on above: Performed By: #### C BCAD, VITD, LIPD, CMP #### [facility] [address], [place] [id number] MCHC (RBC) [Mass/Vol] 31.9 g/dL Low 32.0-36.0 [facility] Specialist Comment on above: Performed By: #### C BCAD, VITD, LIPD, CMP #### [facility] [address], [place] [id number] MCV (RBC) [Entitic vol] 94 fL Normal 80-100 [facility] [employer] Comment on above: Performed By: #### C BCAD, VITD, LIPD, CMP #### [facility] [address], [place] [id number] Monocytes (Bld) [#/Vol] 0.5 10*3/uL Normal 0.2-0.9 [facility] Specialist Comment on above: Performed By: #### C BCAD, VITD, LIPD, CMP #### [facility] [address] [place], [place] [id number] Monocytes/100 WBC (Bld) 7.9 % Normal [facility] Specialist Comment on above: Performed By: #### C BCAD, VITD, LIPD, CMP #### [facility] [address], [place] [id number] Neutrophils (Bld) [#/Vol] 3.2 10*3/uL Normal 1.5-7.8 [facility] Comment on above: Performed By: #### C BCAD, VITD, LIPD, CMP #### [facility] [address] [place], [place] [id number] Neutrophils/100 WBC (Bld) 54.9 % Normal [facility] Comment on above: Performed By: #### C BCAD, VITD, LIPD, CMP #### [facility] [address], [place] [id number] Platelet mean volume (Bld) [Entitic vol] 9.90 fL Normal 7.50-12.50 [facility] Comment on above: Performed By: #### C BCAD, VITD, LIPD, CMP #### [facility] [address], [place] [id number] Platelets (Bld) [#/Vol] 255 10*3/uL Normal 140-400 [facility] Comment on above: Performed By: #### C BCAD, VITD, LIPD, CMP #### [facility] [address], [place] [id number] RBC (Bld) [#/Vol] 4.67 10*6/uL Normal 3.90-5.20 [facility] Comment on above: Performed By: #### C BCAD, VITD, LIPD, CMP #### [facility] [address], [place] [id number] RDW-SD 44.8 fL Normal 37.0-50.0 [facility] Comment on above: Performed By: #### C BCAD, VITD, LIPD, CMP #### [facility] [address], [place] [id number] WBC (Bld) [#/Vol] 5.8 10*3/uL Normal 3.8-11.0 [facility] Comment on above: Performed By: #### C BCAD, VITD, LIPD, CMP #### [facility] [address], [place] [id number] Comprehensive Metabolic Pane [facility] 04-21-2021 Albumin [Mass/Vol] 4.5 g/dL Normal 3.6-5.1 [facility] Comment on above: Performed By: #### C BCAD, VITD, LIPD, CMP #### [facility] [address], [place] [id number] Albumin/Globulin [Mass ratio] 2.3 {ratio} Normal 1.0-2.5 [facility] Comment on above: Performed By: #### C BCAD, VITD, LIPD, CMP #### [facility] [address], [place] [id number] ALP [Catalytic activity/Vol] 96 U/L Normal 35-119 [facility] Comment on above: Performed By: #### C BCAD, VITD, LIPD, CMP #### [facility] [address], [place] [id number] ALT [Catalytic activity/Vol] 24 U/L Normal 6-33 [facility] Comment on above: Result Comment: 04/15 Female reference range changed. Performed By: #### C BCAD, VITD, LIPD, CMP #### [facility] [address], [place] [id number] Anion gap [Moles/Vol] 18 mmol/L Normal 12-20 [facility] Specialist Comment on above: Result Comment: Effe ctive 05/21/2019 reference range changed. Performed By: #### C BCAD, VITD, LIPD, CMP #### [facility] [address], [place] [id number] AST [Catalytic activity/Vol] 30 U/L Normal 9-34 [facility] Specialist Comment on above: Performed By: #### C BCAD, VITD, LIPD, CMP #### [facility] [address], [place] [id number] Bilirubin [Mass/Vol] 0.51 mg/dL Normal 0.30-1.20 [facility] Comment on above: Performed By: #### C BCAD, VITD, LIPD, CMP #### [facility] [address], [place] [id number] BUN/CREA 21 Ratio Normal 6-22 [facility] Specialist Comment on above: Performed By: #### C BCAD, VITD, LIPD, CMP #### [facility] [address], [place] [id number] Calcium [Mass/Vol] 9.8 mg/dL Normal 8.6-10.2 [facility] Comment on above: Performed By: #### C BCAD, VITD, LIPD, CMP #### [facility] [address], [place] [id number] Chloride [Moles/Vol] 103 mmol/L Normal 98-107 [facility] Comment on above: Performed By: #### C BCAD, VITD, LIPD, CMP #### [facility] [address], [place] [id number] CO2 [Moles/Vol] 26 mmol/L Normal 20-31 [facility] Comment on above: Performed By: #### C BCAD, VITD, LIPD, CMP #### [facility] [address], [place] [id number] Creatinine [Mass/Vol] 1.1 mg/dL Normal 0.6-1.4 [facility] Specialist Comment on above: Performed By: #### C BCAD, VITD, LIPD, CMP #### [facility] [address], [place] [id number] eGFRAA 58 mL/min/1.73m2 Low >60 [facility] Specialist Comment on above: Performed By: #### C BCAD, VITD, LIPD, CMP #### [facility] [address], [place] [id number] eGFRNAA 48 mL/min/1.73m2 Low >60 [facility] Specialist Comment on above: Performed By: #### C BCAD, VITD, LIPD, CMP #### [facility] [address], [place] [id number] Globulin (S) [Mass/Vol] 2.0 g/dL Normal 1.9-3.7 [facility] Specialist Comment on above: Performed By: #### C BCAD, VITD, LIPD, CMP #### [facility] [address], [place] [id number] Glucose [Mass/Vol] 91 mg/dL Normal 65-99 [facility] [employer] Comment on above: Result Comment: For FASTING Glucose --- ADA reference ranges: Normal 65-99 mg/dl Prediabetes 100-125 Diabetes >/= 126 Performed By: #### C BCAD, VITD, LIPD, CMP #### [facility] [address], [place] [id number] Potassium [Moles/Vol] 4.5 mmol/L Normal 3.5-5.5 [facility] [employer] Comment on above: Performed By: #### C BCAD, VITD, LIPD, CMP #### [facility] [address], [place] [id number] Protein [Mass/Vol] 6.5 g/dL Normal 6.1-8.1 [facility] [employer] Comment on above: Performed By: #### C BCAD, VITD, LIPD, CMP #### [facility] [address], [place] [id number] Sodium [Moles/Vol] 142 mmol/L Normal 135-146 [facility] [employer] Comment on above: Performed By: #### C BCAD, VITD, LIPD, CMP #### [facility] [address], [place] [id number] Urea nitrogen [Mass/Vol] 24 mg/dL Normal 7-25 [facility] [employer] Comment on above: Performed By: #### C BCAD, VITD, LIPD, CMP #### [facility] [address], [place] [id number] Lipid Panelon 04-21-2021 Cholesterol [Mass/Vol] 182 mg/dL Normal 125-200 [facility] [employer] Comment on above: Result Comment: Low risk < 200mg/dL Borderline risk 201-239 mg/dl High risk > or equal to 240 Performed By: #### C BCAD, VITD, LIPD, CMP #### [facility] [address], [place] [id number] Cholesterol in HDL [Mass/Vol] 62 mg/dL Normal >40 [facility] [employer] Comment on above: Result Comment: High Cardiovascular Risk HDL <40 mg/dL Low Cardiovascular Risk HDL > or equal to 60 mg/dl Performed By: #### C BCAD, VITD, LIPD, CMP #### [facility] [address], [place] [id number] Cholesterol in LDL [Mass/Vol] 98 mg/dL Normal [facility] Specialist Comment on above: Result Comment: LDL ATP III CLASSIFICATION LDL less than 100 mg/dl Optimal LDL 100-129 mg/dl Near or above optimal LDL 130-159 Borderline high LDL 160-189 High LDL greater than 189 mg/dl Very High Performed By: #### C BCAD, VITD, LIPD, CMP #### [facility] [address], [place] [id number] Cholesterol in VLDL [Mass/Vol] 22 mg/dL Normal [facility] Specialist Comment on above: Performed By: #### C BCAD, VITD, LIPD, CMP #### [facility] [address], [place] [id number] Cholesterol.total/Ch olesterol in HDL [Mass ratio] 3 {ratio} Normal [facility] Specialist Comment on above: Performed By: #### C BCAD, VITD, LIPD, CMP #### [facility] [address], [place] [id number] Triglyceride [Mass/Vol] 108 mg/dL Normal 30-150 [facility] [employer] Comment on above: Result Comment: TRIG ATPIII CLASSIFICATIONS TRIG less than 150 mg/dl Normal TRIG 150-199 mg/dl Borderline High TRIG 200-500 mg/dl High TRIG greather than 500 mg/dl Very High Performed By: #### C BCAD, VITD, LIPD, CMP #### [facility] [address], [place] [id number] Microalbumin (with Creat)on 04-21-2021 mALB <1.2 Low [facility] Specialist Comment on above: Result Comment: Unab le to calculate mALB/Crea ratio, mALB is <1.2 mg/dL mALB reference range not established. Performed By: #### m ALBC #### [facility] [address], [place] [id number] UCREA 183 mg/dL Normal 28-217 [facility] [employer] Comment on above: Performed By: #### m ALBC #### [facility] [address] [facility] [place] [place] [id number] Q - URINALYSIS,COMPLETEon Appearance (U) CLEAR Normal CLEAR [facility] [employer] Comment on above: Order Comment: [facility] performed at: QPT, [facility], [address], [address] [place] [address], [address] [place] [address], Build Technician: Clay Sparrow MD [facility] Date/Time: [facility] Results Received Date/Time: [facility] Reported Date/Time: Performed By: #### 3 4F #### [facility] [address] [place] [address] BACTERIA NONE SEEN Normal NONE SEEN [facility] [employer] Comment on above: Order Comment: [facility] performed at: QPT, [facility], [address], [address] [place] [address], [address] [place] [address], Build Technician: Clay Sparrow MD [facility] Date/Time: [facility] Results Received Date/Time: [facility] Reported Date/Time: Performed By: #### 3 4F #### [facility] [address] [place] [address] Bilirubin Ql (U) Negative Normal NEGATIVE [facility] [employer] Comment on above: Order Comment: [facility] performed at: [facility]PT, [facility], [address], [address] [place] [address], [address] [place] [address], Build Technician: Clay Sparrow MD [facility] Date/Time: [facility] Results Received Date/Time: [facility] Reported Date/Time: Performed By: #### 3 4F #### [facility] [address] [place] [address] Color (U) YELLOW Normal YELLOW [facility] [employer] Comment on above: Order Comment: [facility] performed at: [employer], [facility], [address], [address] [place] [address], [address] [place] [address], Build Technician: Clay Sparrow MD [facility] Date/Time: [facility] Results Received Date/Time: [facility] Reported Date/Time: Performed By: #### 3 4F #### [facility] [address] [place] [address] Glucose Ql (U) Negative Normal NEGATIVE [facility] [employer] Comment on above: Order Comment: [facility] performed at: [employer], [facility], [address] [place] [address], [address] [place] [address], Build Technician: Clay Sparrow MD [facility] Date/Time: [facility] Results Received Date/Time: [facility] Reported Date/Time: Performed By: #### 3 4F #### [facility] [address] [place] [address] HYALINE CAST NONE SEEN Normal NONE SEEN [facility] [employer] Comment on above: Order Comment: [facility] performed at: [employer], [facility], [address] , [address] [place] [address], [address] [place] [address], Build Technician: Clay Sparrow MD [facility] Date/Time: [facility] Results Received Date/Time: [facility] Reported Date/Time: Performed By: #### 3 4F #### [facility] [address] [place] [address] Ketones Ql (U) Negative Normal NEGATIVE [facility] [employer] Comment on above: Order Comment: [facility] performed at: [employer], [facility], [address] , [address] [place] [address], [address] [place] [address], Build Technician: Clay Sparrow MD [facility] Date/Time: [facility] Results Received Date/Time: [facility] Reported Date/Time: Performed By: #### 3 4F #### [facility] [address] [place] [address] Leukocyte esterase Test strip Ql (U) TRACE Abnormal NEGATIVE [facility] [employer] Comment on above: Order Comment: [facility] performed at: [employer], [facility], [address] [place] [address], [address] [place] [address], [address] [place] [address], Build Technician: Clay Sparrow MD [facility] Date/Time: [facility] Results Received Date/Time: [facility] Reported Date/Time: Performed By: #### 3 4F #### [facility] [address] [place] [address] Nitrite Ql (U) Negative Normal NEGATIVE [facility] Specialist Comment on above: Order Comment: [facility] performed at: [employer], [facility], [address] [place] [address], [address] [place] [address], [address] [place] [address], Build Technician: Clay Sparrow MD [facility] Date/Time: [facility] Results Received Date/Time: [facility] Reported Date/Time: Performed By: #### 3 4F #### [facility] [address] [place] [address] OCCULT BLOOD Negative Normal NEGATIVE [facility] [employer] Comment on above: Order Comment: [facility] performed at: [employer], [facility], [address] [place] [address], [address] [place] [address], [address] [place] [address], Build Technician: Clay Sparrow MD [facility] Date/Time: [facility] Results Received Date/Time: [facility] Reported Date/Time: Performed By: #### 3 4F #### [facility] [address] [place] [address] pH (U) 6.5 [pH] Normal 5.0-8.0 [facility] [employer] Comment on above: Order Comment: [facility] performed at: [employer], [facility], [address] [place] [address], [address] [place] [address], [address] [place] [address], Build Technician: Clay Sparrow MD [facility] Date/Time: [facility] Results Received Date/Time: [facility] Reported Date/Time: Performed By: #### 3 4F #### [facility] [address] [place] [address] Protein Ql (U) Negative Normal NEGATIVE [facility] Specialist Comment on above: Order Comment: [facility] performed at: [employer], [facility], [address] [place] [address], [address] [place] [address], [address] [place] [address], Build Technician: Clay Sparrow MD [facility] Date/Time: [facility] Results Received Date/Time: [facility] Reported Date/Time: Performed By: #### 3 4F #### [facility] [address] [place] [address] RBC NONE SEEN Normal < OR = 2 [facility] [employer] Comment on above: Order Comment: [facility] performed at: [employer], [facility], [address] [place] [address], [address] [place] [address], [address] [place] [address], Build Technician: Clay Sparrow MD [facility] Date/Time: [facility] Results Received Date/Time: [facility] Reported Date/Time: Performed By: #### 3 4F #### [facility] [address] [place] [address] Specific gravity (U) [Rel density] 1.025 Normal 1.001-1.035 [facility] [employer] Comment on above: Order Comment: [facility] performed at: [employer], [facility], [address] [place] [address], [address] [place] [address], [address] [place] [address], Build Technician: Clay Sparrow MD [facility] Date/Time: [facility] Results Received Date/Time: [facility] Reported Date/Time: Performed By: #### 3 4F #### [facility] [address] [place] [address] SQUAMOUS EPITHELIAL CELLS 0-5 Normal < OR = 5 [facility] [employer] Comment on above: Order Comment: [facility] performed at: [facility], [facility], [address], [address] [place], [address], Build Technician: Clay Sparrow MD [facility] Date/Time: [facility] Results Received Date/Time: [facility] Reported Date/Time: Performed By: #### 3 4F #### [facility] [address] [place] [address] WBC NONE SEEN Normal < OR = 5 [facility] [employer] Comment on above: Order Comment: [facility] performed at: [facility], [facility], [address], [address] [place], [address], Build Technician: Clay Sparrow MD [facility] Date/Time: [facility] Results Received Date/Time: [facility] Reported Date/Time: Performed By: #### 3 4F #### [facility] [address] [place] [address] Vitamin D 25-OHon 04-21-2021 VIT D 25 OH 52 ng/ml Normal >29 [facility] [employer] Comment on above: Result Comment: Ashley min D Status Deficiency <20 ng/mL Insufficiency 20-29 ng/mL Optimal 30-100 ng/mL Possible Toxicity >=150 ng/mL Performed By: #### C BCAD, VITD, LIPD, CMP #### [facility] [address] [place], [place] [id number] XR KNEE GENERAL 4V AP BOTH/P A BOTH/LAT/MERC LTon 12-04-2020 [facility] XR KNEE POST OP 3V AP/LAT/ME RCHANT LTon 04-01-2020 [facility] XR KNEE GENERAL 4V AP BOTH/P A BOTH/LAT/MERC LTon 12-20-2019 [facility] Basic Metabolic Panlon 12-05 Anion gap [Moles/Vol] 8 mmol/L Low 9-18 [facility] Calcium [Mass/Vol] 6.8 mg/dL Low 8.5-10.2 [facility] Chloride [Moles/Vol] 108 mmol/L High 97-105 [facility] CO2 [Moles/Vol] 20 mmol/L Low 22-30 [facility] Creatinine [Mass/Vol] 1.07 mg/dL High 0.58-0.96 [facility] eGFR- Amer. >60 Normal [facility] GFR/1.73 sq M predicted among non-blacks MDRD (S/P/Bld) [Vol rate/Area] 51 . Normal [facility] Comment on above: Result Comment: eGFR [...] GFR. Glucose [Mass/Vol] 145 mg/dL High 74-99 [facility] Comment on above: Result Comment: The [place] Diabetes Association (ADA) provides guidance for cutoff [...] Standards of Medical Care in Diabetes 2016, [place] Diabetes Association. Diabetes Care. 2016.39(Suppl 1). Potassium [Moles/Vol] 3.3 mmol/L Low 3.7-5.1 [facility] Sodium [Moles/Vol] 136 mmol/L Normal 136-144 [facility] Urea nitrogen [Mass/Vol] 21 mg/dL Normal 7-21 [facility] CBCon 12-06-2019 Absolute nRBC <0.01 Normal <0.01 [facility] Erythrocyte distribution width (RBC) [Ratio] 12.5 % Normal 11.5-15.0 [facility] Hematocrit (Bld) [Volume fraction] 30.3 % Low 36.0-46.0 [facility] Hemoglobin (Bld) [Mass/Vol] 9.5 g/dL Low 11.5-15.5 [facility] MCH (RBC) [Entitic mass] 30.6 pG Normal 26.0-34.0 [facility] MCHC (RBC) [Mass/Vol] 31.4 g/dL Normal 30.5-36.0 [facility] MCV (RBC) [Entitic vol] 97.7 fL Normal 80.0-100.0 [facility] Platelet mean volume (Bld) [Entitic vol] 10.2 fL Normal 9.0[facility]7 [facility]lets (Bld) [#/Vol] 188 10*3/uL Normal 150-400 [facility] RBC (Bld) [#/Vol] 3.10 10*6/uL Low 3.90-5.20 [facility] WBC (Bld) [#/Vol] 9.31 10*3/uL Normal 3.70-11.00 [facility] NURSING PROGon 12-06-2019 NURSING PROG HNO ID: [id number] Author: Tae (Rn) LOAN Alvarenga Service: Nursing Author Type: Registered Nurse Type: Nursing Progress Note Filed: 12/06/2019 4:24 PM Note Text: Nursing Progress Note Patient Name: Gilda Sorto Patient Location: [facility]/ Daily Note: 0745: awake and sitting up [...] note was completed by: Tae Alvarenga RN [facility] PLAN OF CAREon 12-06-2019 PLAN OF CARE HNO ID: [id number] Author: Carlie Beltre ([employer]) Service: ? Author Type: ? Type: Plan [...] capsule Commonly known as: MACROBID Carlie Beltre ([employer]) PAGER: [email or web address] December 06, 2019 3:10 PM [facility] PROGRESSon 12-06-2019 PROGRESS HNO ID: [id number] Author: Taz Dean Service: Orthopaedic Surgery Author [...] Osteoarthritis of Left Knee Breast Asymmetry Between [place] Breast and Reconstructed Breast S/P Partial Mastectomy, Right History of Breast Cancer Mass of Left Knee Tear of Lateral Meniscus of Left Knee Complex Tear of Lateral Meniscus of Left Knee As Current Injury Medication and Non-Pharmacologic VTE Prophylaxis/Anticoagula nts 12/05/19 1300 pneumatic compression stockings ([place]) 12/05/19 1300 graduated compression stockings ([place], [place]) VTE Prophylaxis: VTE prophylaxis appropriate POST OPERATIVE COMPLICATIONS: Complicated by: uneventful/none SIGNATURE: Taz Dean DO PATIENT NAME: Gilda Sorto DATE: December 06, 2019 TIME: 9:46 AM PAGER/CONTACT #: ANNIE ETX#[phone] [facility] THERAPY NTon 12-06-2019 THERAPY NT HNO ID: [id number] Author: Jessica (Ot) Simon Service: ? Author Type: Occupational Therapist Type: Therapy (PT/OT/Speech/Resp) Filed: 12/06/2019 3:16 PM Note Text: Occupational Therapy Evaluation SERVICE DATE: 12/06/2019 SERVICE TIME: 1423 to 1500 ROOM: [place] [address] Recommended Discharge Disposition: Home Recommended Discharge Disposition [...] of daily living (ADL) Interventions Provided: Evaluation;Self Alf Management (45643) $ Evaluation-Low (53548) Billed Units: 1 unit Self Alf Management (77122) Treatment Minutes: 20 1 unit Skilled Intervention(s): [...] relating to: -functional transfers (use of leg staff physical therapist to assist surgical leg in/out of bed, [...] of tub or shower seat/bench w/ leg staff physical therapist, importance of grab bars and not bathing [...] Walker;Shower Bench;Wheelchair;Elevat ed Toilet Seat;Long Handled Shoe Horn;Mammography Supervisor Prior Functional Level: Within Functional Limits Prior [...] DATE: December 06, 2019 TIME: 3:10 PM Normal [facility] THERAPY NT HNO ID: [id number] Author: Yadira NavasPtElayne Sher Service: Physical Therapy Author Type: Physical Therapist Type: Therapy (PT/OT/Speech/Resp) Filed: 12/06/2019 3:32 PM Note Text: Physical Therapy Treatment SERVICE DATE: 12/06/2019 SERVICE TIME: 1334 to 1402 ROOM: [place] [address] Recommended Discharge Disposition: Outpatient Physical Therapy Anticipated [...] (ADL);Muscle Weakness (generalized) Interventions Provided: Therapeutic Exercise (50551);Gait Training (65082) Therapeutic Exercise (49340) Treatment Minutes: 13 1 unit Skilled Intervention(s): Instruction in therapeutic exercise Verbal and tactile cuing provided for supine HEP Education in importance of changing positions slowly, staying active Gait Training (04957) Treatment Minutes: 15 2 units Skilled Intervention(s): [...] Walker;Shower Bench;Wheelchair;Elevat ed Toilet Seat;Long Handled Shoe Horn;Mammography Supervisor Prior Functional Level: Within Functional Limits Prior [...] SPT PATIENT NAME: Gilda Sorto DATE: December 06, 2019 TIME: 2:35 PM [facility] THERAPY NT HNO ID: [id number] Author: Yadira (PtElayne Sher Service: Physical Therapy Author Type: Physical Therapist Type: Therapy (PT/OT/Speech/Resp) Filed: 12/06/2019 12:23 PM Note Text: Physical Therapy Treatment SERVICE DATE: 12/06/2019 SERVICE TIME: 1010 to 1050 ROOM: [place] [address] Recommended Discharge Disposition: Outpatient Physical Therapy Anticipated [...] ess on feet Interventions Provided: Therapeutic Exercise (16267);Gait Training (46306) Therapeutic Exercise (12522) Treatment Minutes: 15 1 unit Skilled Intervention(s): Instruction in therapeutic exercise Verbal and tactile cuing provided for proper HEP completion Education in importance of mobility (see flow sheet for exercises completed) Gait Training (24673) Treatment Minutes: 25 2 units Skilled Intervention(s): [...] DATE: December 06, 2019 TIME: 11:10 AM [facility] ANES POSTPROC EVALon 020 ANES POSTPROC EVAL HNO ID: [id number] Author: Bayron Everett Service: ? Author Type: Anesthesiologist Type: Anesthesia Postprocedure Evaluation Filed: 12/05/2019 1:24 PM Note Text: POST ANESTHESIA EVALUATION NOTE : 1950 Procedure Summary Date: 12/05/19 Room / Location: OR03 / AV OR Anesthesia Start: 732 Anesthesia Stop: 1055 [...] December 05, 2019 TIME: 1:23 PM CSN: [id number] [facility] ANES PRE-OPon 12-05-2019 ANES PRE-OP HNO ID: [id number] Author: Bayron Soloriojitendra Service: ? Author Type: Anesthesiologist Type: Anesthesia [...] December 05, 2019 TIME: 7:11 AM CSN: [id number] [facility] BRIEF OP NOTon 12-05-2019 BRIEF OP NOT HNO ID: [id number] Author: Taz Dean Service: Orthopaedic Surgery Author Type: Physician Type: Brief Op Note Filed: 12/05/2019 10:38 AM Note Text: TOTAL KNEE ARTHROPLASTY BRIEF OPERATIVE / PROCEDURE NOTE LOG ID: [id number] Surgery/Procedure Date: 12/05/2019 Incision/Procedure Start Time: 8:08 AM Incision Close/Procedure End Time: 10:34 AM Surgeon(s)/Proceduralis t(s) and Microstrategy Architect Developer(s): Surgeon(s) and Role: * Taz Dean - Primary Physician Microstrategy Architect Developer: Gavin Ballard Procedure(s): Procedure(s) (LRB): ARTHROPLASTY REPLACE JOINT TOTAL KNEE (Left) Anesthesia: Monitored Anesthesia Care with spinal Peripheral Block Type: Saphenous/Adductor Approach: Median parapatellar Findings: Advanced DJD left knee Estimated Blood Loss: 75 mls Specimens: None Complications: None Implant: Implant Name Type Inv. Item Serial No. Laborer Shellfish Processing Lot No. LRB No. Used Action INSERT PERSONA 6-9 C-D POLYETHYLENE 10MM ARTICULAR POSTERIOR STABILIZED - [id number] Joint - Knee INSERT PERSONA 6-9 C-D POLYETHYLENE 10MM ARTICULAR POSTERIOR STABILIZED [employer] [id number] Left 1 Implanted COMPONENT 29MM ALL POLY PATELLAR PSN - [id number] Joint - Knee COMPONENT 29MM ALL POLY PATELLAR PSN [employer] [id number] Left 1 Implanted COMPONENT PERSONA 6 NARROW COCR FEMORAL CEMENTED POSTERIOR STABILIZE KNEE - [id number] Joint - Knee COMPONENT PERSONA 6 NARROW COCR FEMORAL CEMENTED POSTERIOR STABILIZE KNEE [employer] [id number] Left 1 Implanted BASEPLATE PERSONA 5D D TIVANIUM TIBIAL CEMENTED STEM KNEE LEFT - [id number] Joint BASEPLATE PERSONA 5D D TIVANIUM TIBIAL CEMENTED STEM KNEE LEFT [employer] [id number] Left 1 Implanted CEMENT SIMPLEX P BONE RADIOPAQUE FULL DOSE STERILE - [id number] Cement / Putty CEMENT SIMPLEX P BONE RADIOPAQUE FULL DOSE STERILE STRY/HOW [employer] [id number] Left 1 Implanted Bearing Surface: Fixed Fixation: Cemented SSI Risk Factors: NA Constraint: Posterior Stabilized Other: None Pre-Op/Pre-Procedure Diagnosis: DJD left knee Post-Op/Post-Procedure Diagnosis: DJD left knee Weight Bearing Status: Weight Bearing As Tolerated SIGNATURE: Taz Dean DO PATIENT NAME: Gilda Sorto DATE: December 05, 2019 TIME: 10:36 AM PAGER/CONTACT #: [facility] CASE MGT INIT [facility] 2019 CASE MGT INIT [facility] HNO ID: [id number] Author: Yanna (Rn) LOAN Barriga Service: Care Management Author Type: Registered Nurse Type: Care Mgt Initial Assessment Filed: 12/05/2019 1:53 PM Note Text: CARE MANAGEMENT: ASSESSMENT AND DISCHARGE PLAN SERVICE DATE: December 05, 2019 SERVICE TIME: 1:52 PM PRIMARY CARE PHYSICIAN: Gonsalo Hubbard MD ADMISSION STATUS: Ambulatory Surgery MEDICAL: [employer] MEDICARE 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 Last discharge within 30 days: No Advance Directive: Current Advance Directive: Health Care Power of Home And Family Living Professor;Living Will In Chart: Yes Up To Date [...] Emergency Contact: Fareed Sorto Address: [address] [place] [address] [facility] Mobile Relation: Spouse Supportive Patient [...] Completely I feel financially burdened by my qbx-od-vnczso expenses for my prescription medication:: 0 - Disagree Completely Risk Score: 0 Patient is categorized as: Low risk < 2 Are you interested in bedside delivery of your medications? Yes Is Patient Psychosocially Complex?: No ASSESSMENT AND PLAN: Medical Needs: Medical Needs: None Psychosocial Needs: Psychosocial Needs: None FREEDOM OF CHOICE EXPLAINED: [place] of Choice Given: No Reason Not Given: No placements necessary POTENTIAL TRANSITION PLANS Outpatient Therapy Patient from home with spouse. Has equipment. Has OP PT on 12/09 at 11:45 in [place]. SIGNATURE: Yanna Barriga RN PATIENT NAME: Gilda Sorto DATE: December 05, 2019 TIME: 1:52 PM PAGER/CONTACT #: [phone] [facility] NURSING PROGon 12-05-2019 NURSING PROG HNO ID: [id number] Author: Ekaterina NavasRn) LOAN Erickson Service: Nursing Author Type: Registered Nurse Type: Nursing Progress Note Filed: 12/05/2019 12:58 PM Note Text: Nursing Progress Note Patient Name: Gilda Sorto Patient Location: AV Surgery/AV Surgery Daily Note: Patient arrived in room 510 via bed transport. Patient alert and oriented x 3. This note was completed by: Ekaterina Erickson RN [facility] OPERATIVE NOon 12-05-2019 OPERATIVE NO HNO ID: [id number] Author: Taz Dean Service: Orthopaedic Surgery Author Type: Physician Type: Operative Report Filed: 12/05/2019 8:42 PM Note Text: [facility] OPERATIVE REPORT PATIENT NAME: Gilda Sorto AGE: [age] year old SEX: female LOG ID: [id number] SURGERY DATE: 12/05/2019 SURGEON: Taz Dean D.O. CUTTING MACHINE TENDER: Gavin Ballard PA-C, her role in the [...] position, the tibia was prepared using the 24Symbolsstack reamer and keel?punch.? A trial tibial tray [...] patellar bone calipers?were? used?to measure the patient's [place] patella and guide the amount of?bone resection needed.? Following this, the articular side of the patella was? resected?with a?bone saw, taking the appropriate amount of bone from the patella.??The? patellar sizing guide was then positioned?and?the patient?matched a 29-mm patellar component.? The appropriate size patellar guide was?positioned and the 3 airline pilot/first officer holes were drilled. The 29-mm trial patellar [...] followed by interrupted #1?Vicryl suture in a itnzji-na-fdqev alternating fashion, sealing off the remaining portions [...] AM Incision Stop: 10:34 AM SIGNATURE: Taz Dean DO DATE: December 05, 2019 TIME: 8:33 PM [facility] PT ED 12-05-2019 PT ED HNO ID: [id number] Author: Jazz (Rn) LOAN Hilario Service: ? Author Type: Registered Nurse Type: Patient Education Filed: 12/05/2019 6:55 AM Note Text: PRE OP LEARNING ASSESSMENT PROCEDURE/SURGERY: left TKR READINESS TO LEARN COGNITIVE ABILITY: Alert and oriented MOTIVATION TO LEARN: Eager FAMILY SUPPORT: None - Unavailable/disinterest ed PATIENT LEARNS BEST BY: Individual Instruction FACTORS AFFECTING LEARNING: None PHYSICAL LIMITATIONS AFFECTING LEARNING: None [facility] THERAPY NTon 12-05-2019 THERAPY NT HNO ID: [id number] Author: Yadira NavasPtElayne Sher Service: Physical Therapy Author Type: Physical Therapist Type: Therapy (PT/OT/Speech/Resp) Filed: 12/05/2019 5:45 PM Note Text: Physical Therapy Evaluation SERVICE DATE: 12/05/2019 SERVICE TIME: to 1703 ROOM: [place] [address] Recommended Discharge Disposition: Outpatient Physical Therapy Anticipated [...] on feet;Difficulty walking-musculoskeletal Interventions Provided: Evaluation;Gait Training (32714);Therapeutic Exercise (97133) $ Evaluation-Low (11909) Billed Units: 1 unit Therapeutic Exercise (67994) Treatment Minutes: 10 1 unit Skilled Intervention(s): Instruction in therapeutic exercise Verbal and tactile cuing provided for proper HEP completion Education in knee precautions and pain science Gait Training (29851) Treatment Minutes: 13 1 unit Skilled Intervention(s): [...] Toilet/Commode Gait Stairs Curb Step Car Transfer [facility]: 5: Standing (1 or more minutes) I reviewed and agree with the documentation corresponding to this therapy visit. SIGNATURE: Yadira Sher, MARLON DATE: December 05, 2019 TIME: 5:45 PM Please see discipline specific clinical documentation flowsheet for complete details for this therapy evaluation/treatment. SIGNATURE: Raymon Owens, SPT PATIENT NAME: Gilda Sorto DATE: December 05, 2019 TIME: 5:30 PM [facility] Type and Screenon 12-05-2019 ABO/RH(D) Positive [facility] CNPNon 12-04-2019 CNPN Telephone (AVPRAD) NOREENGILDA Melissa ([id number]) 1950 F Date Time Provider Department 12/04/19 GAVIN BALLARD PA-C During your visit today, we recorded the following information about you: Gavin Ballard PA-C 12/04/2019 12:51 PM Signed Per review no recent. 30 day type and screen or confirm blood type. There is a confirm blood type from 2013. Discussed with Dr. Dean and also pre [...] Rash Date Reviewed: 12/04/2019 Reviewed by: Gavin Ballard - Fully Assessed Reason for Visit: labs [...] left knee [M17.12] 10/13/2017 Breast asymmetry between [place] breast and jennifer*12/02/2017 More... S/P partial mastectomy, right [Z90.11] 12/02/2017 More... History of breast cancer [Z85.3] 12/02/2017 More... Mass of left knee [R22.42] 01/05/2018 Tear of lateral meniscus of left knee [S83.282A]01/06/2018 More... Complex tear of lateral meniscus of left knee a*01/06/2018 Encounter Status:Closed by GAVIN BALLARD Felipe on 12/04/19 [facility] NURSING PROGon 11-26-2019 NURSING PROG HNO ID: [id number] Author: Stephanie Cuevas (Rn) Manny RN Service: Anesthesiology Author Type: Registered Nurse Type: [...] Bryant RN November 30, 2019 10:58 AM [facility] HOSPon 11-01-2019 HOSP Patient:Gilda Sorto MRN: [...] of left knee [M17.12] Breast asymmetry between [place] breast and reconstructed breast [N65.1] S/P partial [...] 44.6 % 11/26/2019 46.0 36.0 Progress Notes ( PROVIDER ADULT): Gavin Ballard PA-C 12/04/2019 12:51 PM Signed Per review no recent. 30 day type and screen or confirm blood type. There is a confirm blood type from 2013. Discussed with Dr. Dean and also pre anesthesia SCOTTY Butler and will place orders for patient to get labs on arrival before surgery tomorrow. Patient agreeable to go to lab today but due to michaels virus situation patient was advised to stay at home after michaels virus test. Gavin Ballard PA-C Progress Notes ([facility] PROV ADULT): Ashleigh Alex APRN.FOOD BEVERAGE SUPERVISOR 11/28/2019 8:45 AM Signed Please call patient and advise that on pre-op labs UA showed leukocytes and urine culture revealed possible contaimination Due to surgery being 12/04- will treat with low dose antibiotics for possible infection Rx for Macrobid sent to pharmacy. Advise to start AMBER and take BID for 7 days Thank you Ashleigh Alex APRN.[facility] Na Beltre LPN 11/28/2019 8:56 AM Signed Patient aware. Pharmacy verified. Will picker / packer and start first does this am. Na Beltre LPN Normal [facility] Vital Signs Date Time Vital Sign Value Performing Clinician Dexter redman 06-30-2023 09:46-0500 Body mass index (BMI) [Ratio] 35.07 kg/m2 Samia Warren METHODS ENGINEER Work Phone: [facility] 06-30-2023 09:46-0500 Body temperature 97.11 [degF] Samia Warren METHODS ENGINEER Work Phone: [facility] 06-30-2023 09:46-0500 Body weight 89.81 kg Samia Warren METHODS ENGINEER Work Phone: [facility] 06-30-2023 09:46-0500 Diastolic blood pressure 80 mm[Hg] Samia Warren METHODS ENGINEER Work Phone: [facility] 06-30-2023 09:46-0500 Heart rate 96 /min Samia Warren METHODS ENGINEER Work Phone: [facility] 06-30-2023 09:46-0500 SaO2% (BldA) [Mass fraction] 97 % Samia Warren METHODS ENGINEER Work Phone: [facility] 06-30-2023 09:46-0500 Systolic blood pressure 128 mm[Hg] Samia Warren METHODS ENGINEER Work Phone: [facility] 04-16-2022 11:52-0500 Body temperature 98.1 [degF] Sharon Saldivar FISH FRYER.FOOD BEVERAGE SUPERVISOR Work Phone: [facility] 04-16-2022 11:52-0500 Diastolic blood pressure 60 mm[Hg] Sharon Villanuevaerson FISH FRYER.FOOD BEVERAGE SUPERVISOR Work Phone: [facility] 04-16-2022 11:52-0500 Heart rate 85 /min Sharon Saldivar FISH FRYER.FOOD BEVERAGE SUPERVISOR Work Phone: [facility] 04-16-2022 11:52-0500 Respiratory rate 20 /min Sharon Saldivar FISH FRYER.FOOD BEVERAGE SUPERVISOR Work Phone: [facility] 04-16-2022 11:52-0500 SaO2% (BldA) [Mass fraction] 100 % Sharon Saldivar FISH FRYER.FOOD BEVERAGE SUPERVISOR Work Phone: [facility] 04-16-2022 11:52-0500 Systolic blood pressure 117 mm[Hg] Sharon Saldivar FISH FRYER.FOOD BEVERAGE SUPERVISOR Work Phone: [facility] Encounters Encounter Date Encounter Type Care Provider Facility Start: 01-06-2024 End: 01-06-2024 ambulatory GRAZYNA R RISALITI Not Available Start: 12-28-2023 End: 12-28-2023 ambulatory GRAZYNA R RISALITI Not Available Start: 09-26-2023 End: 09-26-2023 ambulatory GONSALO HUBBARD Not Available Start: 06-30-2023 End: 06-30-2023 Office outpatient visit 15 minutes Samia Warren METHODS ENGINEER Work Phone: [facility] Comment on above: Viral upper respirat ory tract infection (Primary Dx); Cough, unspecified type; Insomnia, unspecified type; Morbid obesity (CMS/HCC); History of breast cancer Start: 06-30-2023 End: 06-30-2023 ambulatory GONSALO HUBBARD Not Available Start: 04-26-2023 End: 04-26-2023 ambulatory GONSALO HUBBARD Not Available Start: 04-19-2023 End: 04-19-2023 ambulatory Gonsalo Hubbard Facility:[facility] Start: 04-12-2023 End: 04-12-2023 ambulatory KAYLA ESPERANZA Facility:[facility] Start: 04-12-2023 End: 04-12-2023 Subsequent hospital visit by physician Xr [facility] Work Phone: Radiology Comment on above: Pain [R52] Start: 05-04-2022 ambulatory JALEN SMITHMICHELLEVera Facility :UNKNOWN Start: 04-16-2022 End: 04-16-2022 ambulatory GONSALO HUBBARD Facility:[facility] Start: 04-16-2022 Documentation procedure Mammog samantha Coordinator [facility] Start: 04-16-2022 Letter encounter Mammography Coordinator [facility] Department Start: 04-16-2022 End: 04-16-2022 ambulatory Sharon Saldivar APRN.CNP Work Phone: Hematology/Oncology Comment on above: Encounter for screen ing mammogram for breast cancer (Primary Dx); Stage 1 breast cancer, ER-, left (HCC) Start: 04-16-2022 End: 04-16-2022 Patient encounter procedure Sharon Saldivar APRN.CNP Work Phone: [facility] Start: 04-16-2022 End: 04-16-2022 Subsequent hospital visit by physician [facility] Work Phone: Mammography Comment on above: Encounter for screen ing mammogram for breast cancer [Z12.31] Start: 01-21-2022 ambulatory JALEN PENNE Facility :UNKNOWN Start: 01-12-2022 End: 01-12-2022 ambulatory JALENMARIO PRADOBEMICHELLEE Facility:UNKNOWN Start: 12-15-2021 End: 12-15-2021 ambulatory JALENMARIO PENNE Facility:UNKNOWN Start: 12-09-2021 ambulatory JALEN DELAROSA Facility :UNKNOWN Start: 12-09-2021 Encounter for other preprocedural examination JALEN DELAROSA Facility:UNKNOWN Start: 11-25-2021 End: 11-25-2021 Subsequent hospital visit by physician Mary Ayala F30 (I-Stat) Work Phone: Radiology Start: 11-20-2021 Orders Only Sharon castelan FISH FRYER.FOOD BEVERAGE SUPERVISOR Work Phone: Hematology/Oncology Comment on above: Encounter [...] 12-04-2020 Subsequent hospital visit by physician Xr [facility] [employer] General Radiology Comment on above: S/P total knee arthr oplasty, left [Z96.652] Start: 04-01-2020 End: 04-01-2020 Subsequent hospital visit by physician Xr [facility] Work Phone: Radiology Comment on above: post op Start: 12-20-2019 End: 12-20-2019 Subsequent hospital visit by physician Xr [facility] General Radiology Comment on above: Primary osteoarthrit is of left knee [M17.12] Procedures Date Procedure Procedure Detail Performing Clinician Start: 06-30-2023 STATUS COVID-19/FLU Obie tlin E Chadd-Maria Esther METHODS ENGINEER Work Phone: Start: 04-12-2023 Radex hand minimum 3 views Kayla Mata MD Work Phone: Start: 04-16-2022 JAKE SCREENING W JOE Saldivar FISH FRYER.FOOD BEVERAGE SUPERVISOR Work Phone: Start: 04-16-2022 Mammography Sharon Hernandez FISH FRYER.FOOD BEVERAGE SUPERVISOR Work Phone: Start: 11-25-2021 Ct angio abd&plvis [...] 04-01-2020 Radiologic examinati on knee 3 views Gavincharli Ballard PA-C Work Phone: Start: 12-20-2019 Radiologic exam knee complete 4/more views Gavin Ballard PA-C Work Phone: Start: 12-05-2019 Antibody screen Start: 12-02-2017 History of mastectomy S/P part ial mastectomy, right Paco Ramirez MD Work Phone: Start: 09-06-2012 Lipid 1996 panel - S compa or Plasma [facility] Plan of Treatment Date Care Activity Detail Author Start: 11-05-2030 Screening for malign ant neoplasm of colon [facility] Start: 12-09-2024 Diabetes Screening Diabetes Screenin g [facility] Start: 04-26-2024 Medicare Annual Well ness (AWV) Medicare Annual Wellness (AWV) [facility] Start: 04-24-2024 End: 04-24-2024 Patient encounter procedure 04/24/2024 1:00 PM EST Office Visit [facility] [address] [place] [address] Gonsalo Hubbard MD [address] [place] [address] [facility] Start: 01-15-2024 Covid-19 Vaccine (6 - 2023-24 season) Covid-19 Vaccine ( season) [facility] Start: 01-15-2024 Influenza vaccination Influenza Vacc ine (#1) [facility] Start: 11-25-2023 DIABETES SCREEN [facility]EN [facility] Start: 11-25-2023 Diabetes Screening Diabetes Screenin g [facility] Start: 05-16-2023 Advance Directive Discussion Advance Directive Discussion [facility] Start: 04-16-2023 BP CONTROLLED (<130/80) BP CONTROLLE D (<130/80) [facility] Start: 04-16-2023 End: 05-16-2023 JAKE SCREENING JAKE SCREENING Radiology Routine Encounter for screening mammogram for breast cancer Expected: 04/16/2023, Expires: 05/16/2023 [facility] Work Phone: Comment on above: Expected: 04/16/2023 , Expires: 05/16/2023 Start: 04-16-2023 Mammography [facility] Start: 04-16-2023 Screening for malign ant neoplasm of breast Mammogram Screening [facility] Start: 01-14-2023 Covid-19 Vaccine ( season) Covid-19 Vaccine ( season) [facility] Start: 01-14-2023 Influenza vaccination Influenza Vacc ine (#1) [facility] Start: 05-16-2022 Advance Directive Discussion Advance Directive Discussion [facility] Start: 05-16-2022 Depression Assessment Depression Ass essment [facility] Start: 01-14-2022 Influenza vaccination INFLUENZA (#1) [facility] Start: 11-24-2021 Mammography MAMMOGRAM [facility] Start: 11-21-2021 Adult depression screening assessment DEPRESSION SCREENING [facility] Start: 09-23-2021 End: 11-23-2021 CREATININE BLD CREATININE BLD Lab Routine Renal artery aneurysm (HCC) Expected: 09/23/2021, Expires: 11/23/2021 [facility] Work Phone: Comment on above: Expected: 09/23/2021 , Expires: 11/23/2021 Start: 08-08-2021 COVID-19 VACCINE (3 - Booster for Moderna series) COVID-19 VACCINE (3 - Booster for Moderna series) [facility] Start: 07-11-2021 COVID-19 VACCINE (4 - Booster for Moderna series) COVID-19 VACCINE (4 - Booster for Moderna series) [facility] Start: 05-16-2021 ADVANCE DIRECTIVE DISCUSSION ADVANCE DIRECTIVE DISCUSSION [facility] Start: 05-16-2021 DEPRESSION ASSESSMENT DEPRESSION ASS ESSMENT [facility] Start: 09-06-2017 Lipid 1996 panel - S compa or Plasma Lipid Screening [facility] Start: 09-06-2017 Lipid panel Lipid Screening [facility] Start: 09-06-2017 LIPID SCREEN LIPID SCREEN [facility] Start: 2015 BONE DENSITY BONE DENSITY [facility] Start: 2015 Bone Density Screening Bone Density Screening [facility] Start: 2015 PNEUMOCOCCAL: 65+ (1 - PCV) PNEUMOCOCCAL: 65+ (1 - PCV) [facility] Start: 2015 PNEUMOVAX AGE 65 AND OVER WITH 5YR LOOKBACK (#1) PNEUMOVAX AGE 65 AND OVER WITH 5YR LOOKBACK (#1) [facility] Start: 2015 Screening for osteoporosis Bone Density Screening [facility] Start: 11-08-2014 Urine microalbumin profile DTaP,Tdap,Td Vaccine (1 - Tdap) [facility] Start: 2010 RSV Vaccine (1 - 1-d ose 60+ series) RSV Vaccine (1 - 1-dose 60+ series) [facility] Start: 2000 SHINGRIX VACCINE (1 of 2) SHINGRIX VACCINE (1 of 2) [facility] Start: 1995 COLOGUARD (FIT-DNA) COLOGUARD (FIT-D NA) [facility] Start: 1995 Colonoscopy COLONOSCOPY [facility] Start: 1995 COLORECTAL CANCER SCREENING COLORECTAL CANCER SCREENING [facility] Start: [address] COLONOGRAPHY [facility] Start: 1995 FECAL OCCULT BLOOD FECAL OCCULT BLOO D [facility] Start: 1995 Screening for malign ant neoplasm of colon [facility] Start: 1995 SIGMOIDOSCOPY SIGMOIDOSCOPY [facility] Start: 1969 Urine microalbumin profile DTAP,TDAP,TD (1 - Tdap) [facility] Start: 1968 ANNUAL PCP TEAM PUMPER GAUGER LOIS DISEASE VISIT ANNUAL PCP TEAM CHRONIC DISEASE VISIT [facility] Start: 1968 Anxiety Screening Anxiety Screening [facility] Start: 1968 BP CONTROLLED (<130/80) BP CONTROLLE D (<130/80) [facility] Start: 1968 Depression Screening Depression Scre ening [facility] Start: 1968 HEPATITIS C SCREENING HEPATITIS C [facility] Start: 1968 Hepatitis C screening Hepatitis C [facility] Start: 1950 Screening for malign ant neoplasm of colon [facility] End: 10-23-2022 Ct angio abd&plvis cntrst mtrl w/wo cntrst img CTA ABD/PEL WO/W IVCON Radiology Routine Renal artery aneurysm (HCC) 1 Occurrences starting 09/23/2021 until 10/23/2022 [facility] Work Phone: Comment on above: 1 Occurrences starti ng 09/23/2021 until 10/23/2022 End: 12-20-2022 Screening mammography bi 2-view breast inc cad JAKE SCREENING Radiology Routine Encounter for screening mammogram for breast cancer 1 Occurrences starting 11/20/2021 until 12/20/2022 [facility] Work Phone: Comment on above: 1 Occurrences starti ng 11/20/2021 until 12/20/2022 [facility] Immunizations Immunization Date Immunization Notes Care Provider Sugey hogue 03-19-2023 Influenza, Seasonal, Quadrivalent, Adjuvanted Samia Warren METHODS ENGINEER Work Phone: [facility] 03-19-2023 influenza virus vaccine, unspecified formulation Xr [place] Work Phone: [facility] 03-30-2022 SARS-COV-2 (COVID-19 ) vaccine, mRNA, spike protein, LNP, bivalent, PF Samia Warren METHODS ENGINEER Work Phone: [facility] 03-12-2022 Influenza, High-dose Seasonal, Quadrivalent, Preservative Free Samia Warren METHODS ENGINEER Work Phone: [facility] 03-12-2022 influenza virus vaccine, unspecified formulation [facility] 02-12-2021 Influenza, High-dose Seasonal, Quadrivalent, Preservative Free Samia Chadd-Maria Esther METHODS ENGINEER Work Phone: [facility] 07-21-2020 COVID-19 vaccine, fu ll dose (MODERNA) Ct (I-Stat) Work Phone: [facility] 06-23-2020 COVID-19 vaccine, fu ll dose (MODERNA) Ct (I-Stat) Work Phone: [facility] 01-17-2020 influenza, high dose seasonal, preservative-free Samia Chadd-Maria Esther METHODS ENGINEER Work Phone: [facility] 12-24-2019 zoster vaccine recombinant Samia Chadd-Maria Esther METHODS ENGINEER Work Phone: [facility] 10-16-2019 zoster vaccine recombinant Samia Chadd-Maria Esther METHODS ENGINEER Work Phone: [facility] 03-19-2019 pneumococcal polysaccharide vaccine, 23 valent Samia Chadd-Maria Esther METHODS ENGINEER Work Phone: [facility] 03-01-2017 pneumococcal polysaccharide vaccine, 23 valent Samia Chadd-Maria Esther METHODS ENGINEER Work Phone: [facility] 02-13-2017 influenza, injectabl e, quadrivalent, preservative free Samia Chadd-Maria Esther METHODS ENGINEER Work Phone: [facility] 12-06-2016 hepatitis A and hepatitis B vaccine Samia Chadd-Maria Esther METHODS ENGINEER Work Phone: [facility] 05-28-2016 hepatitis A and hepatitis B vaccine Samia Chadd-Maria Esther METHODS ENGINEER Work Phone: [facility] 04-27-2016 hepatitis A and hepatitis B vaccine Samia Chadd-Maria Esther METHODS ENGINEER Work Phone: [facility] 04-27-2016 typhoid capsular polysaccharide vaccine Samia Chadd-Maria Esther METHODS ENGINEER Work Phone: [facility] 03-24-2015 pneumococcal conjuga te vaccine, 13 valent Samia Warren METHODS ENGINEER Work Phone: [facility] 03-20-2015 influenza, injectabl e, quadrivalent, preservative free Samia Warren METHODS ENGINEER Work Phone: [facility] 11-07-2014 tetanus and diphther ia toxoids, adsorbed, preservative free, for adult use (2 Lf of tetanus toxoid and 2 Lf of diphtheria toxoid) Samia Warren METHODS ENGINEER Work Phone: [facility] 01-08-2013 zoster vaccine, live Samia Warren METHODS ENGINEER Work Phone: [facility] Payers Date Payer Category Payer Self-pay 2021 Medicare AETNA MEDICARE A ETNA MEDICARE PPO [id number] 2021-Present [phone] [address] [place] [address] O [id number] 2021 Private Health Insurance 101 [id number] 2019 Medicare AETNA MEDICARE A ETNA MEDICARE PPO [id number] 2019-Present [phone] [address] [place] [address] PPO [id number] 2019 Medicare [id number] 1950 Unknown [id number] 93 1950 Unknown [id number] 1950 Unknown [id number] 93 1950 Unknown [id number] 93 1950 Unknown [id number] 93 1950 Unknown [id number] 259 1950 Unknown [id number] [id number] 259 1950 Unknown [id number] [id number] 259 1950 Unknown [id number] [id number] 259 1950 Unknown [id number] 259 Unknown [id number] 31 Social History Date Type Detail Facility Start: 05-01-2012 End: 04-12-2023 Tobacco smoking status NHIS Never smoked tobacco [facility] Start: 11-24-2020 End: 04-12-2023 Alcohol intake Current drinker of alcohol (finding) [facility] Start: 11-26-2019 End: 12-05-2019 History SDOH Alcohol Frequency 5 [facility] Start: 11-26-2019 End: 12-05-2019 History SDOH Alcohol Std Drinks 1 [facility] Start: 11-26-2019 History SDOH Alcohol Comment A GLASS OF WINE ALMOST EVERY NIGHT BEFORE BED [facility] Start: 12-05-2019 History SDOH Transport Med 2 [facility] Start: 1950 Sex Assigned At Not on file [facility] Start: 09-12-2021 End: 09-22-2021 Exposure to SARS-CoV-2 (event) Unable to assess [facility] Start: 11-20-2019 End: 04-16-2022 Exposure to SARS-CoV-2 (event) Not sure [facility] Start: 05-01-2012 End: 04-12-2023 Tobacco use and exposure Smokeless tobacco non-user [facility] Start: 11-26-2019 End: 04-12-2023 History of Social function [facility] Work Phone: Start: 11-26-2019 End: 04-12-2023 Alcohol Use Disorder Identification Test - Consumption [AUDIT-C] [facility] Work Phone: How often to you hav e a drink containing alcohol? 4 or more times a week [facility] Work Phone: How many standard dr inks containing alcohol do you have on a typical day? 1 or 2 [facility] Work Phone: How often do you hav e 6 or more drinks on 1 occasion? Never [facility] Work Phone: How hard is it for y ou to pay for the very basics like food, housing, medical care, and heating Not hard at all [facility] (I/We) worried kev (my/our) food would run out before (I/we) got money to buy more. Never true [facility] Start: 06-30-2023 Alcohol intake Ex-drinker (finding) [facility] Start: 01-15-2023 Alcohol Comment caffeine: 1-2 cups per day of coffee [facility] Start: 1950 Sex Assigned At Female [facility] Start: 12-07-2022 Gender identity Identifies as female gender (finding) [facility] Medical Equipment Procedure Code Equipment Code Equipment Origin al Text Equipment Identifier Dates Cement Simplex P Bone Radiopaque Full Dose Sterile - [id number] Start: 12-05-2019 [place] Cv 6x6in Thk1.65mm Ptfe - [id number] Start: 09-12-2012 Insert Persona 6 -9 C-D Polyethylene 10mm Articular Posterior Stabilized - [id number] Start: 12-05-2019 Component 29mm A ll Poly Patellar Psn - [id number] Start: 12-05-2019 Component Person a 6 Narrow Cocr Femoral Cemented Posterior Stabilize Knee - [id number] Start: 12-05-2019 Baseplate Person a 5d D Tivanium Tibial Cemented Stem Knee Left - [id number] hayward Start: 12-05-2019 Clinical Notes 12-20-2019 to 06-30-2023 Samia Warren NP - 06/30/2023 9:45 AM Micheal Saldivar APRN.AMARI - 04/16/2022 12:30 PM Alba Leblanc MA - 04/16/2022 11:51 AM RT Levi(R) - 04/16/2022 11:10 AM EST Note Date [...] 12/02/2017 Added automatically from request for surgery [id number] Tear of lateral meniscus of knee 01/06/2018 Added automatically from request for surgery [id number] Tonsillitis REVIEW OF SYMPTOMS: Review of Systems [...] follow-ups on file. documented in this encounter [facility] 04-12-2023 Note HNO ID: [id number] Author: Kayla Mata MD Service: ? Author Type: Physician Type: Progress Notes Filed: 04/12/2023 4:51 PM Note Text: PLASTIC SURGERY DEPARTMENT [facility] Hand Surgery Note [x] New referred by [...] What........... Reason:........... Upp (more content not included)... [facility] 04-16-2022 Note HNO ID: [id number] Author: Sharon Saldivar APRN.FOOD BEVERAGE SUPERVISOR Service: ? Author Type: Nurse Practitioner Type: [...] which included preparing to see the patient, [id number] patient care, completing clinical documentation, performing a medically appropriate examination, counseling and educating the patient/family/caregiver, ordering medications, tests, or procedures, communicating with other HCPs (not separately reported), independently interpreting results (not separately reported), communicating results to the patient/family/caregiver, and care coordination (not separately reported). Sharon Saldivar APRN.[facility] 04-16-2022 Note HNO ID: [id number] Author: RT Mario(R) Service: ? Author Type: [...] RT Mario(R) April 16, 2022 11:39 AM [facility] 04-16-2022 History of Present illness Narrative [...] which included preparing to see the patient, [id number] patient care, completing clinical documentation, performing a medically appropriate examination, counseling and educating the patient/family/caregiver, ordering medications, tests, or procedures, communicating with other HCPs (not separately reported), independently interpreting results (not separately reported), communicating results to the patient/family/caregiver, and care coordination (not separately reported). Sharon Saldivar APRN.CNP documented in this encounter [facility] 04-16-2022 Nurse Note Additional intake questions: Has the patient had fever, nausea, vomiting, diarrhea, constipation, fatigue for > 1 week? No Does the patient have a decreased appetite? No Does patient want to see a Bulb Tester? No (yes to any of above refer patient to schedulers for dietitian appointment) ) Does patient have any new or increased numbness or tingling of extremities? No Is patient interested in fertility information? No Does patient need any prescription refills? No Does patient have an advanced directive in place? Yes, copies are in [facility] documented in this encounter [facility] 04-16-2022 Miscellaneous Notes April 16, 2022 PID: [id number] Gilda Sorto [address] [place] [address] Dear Ms. Sorto, We are pleased to [...] report will be kept on file at [facility] as part of your permanent medical record and are available for your continuing care. Thank you for allowing us to help in meeting your health care needs. Sincerely, Dr. Perez Interpreting Radiologist [facility] (Normal over 40) documented in this encounter [facility] 04-16-2022 History of Present illness Narrative Radiology [...] 2022 11:39 AM documented in this encounter [facility] 11-25-2021 History of Present illness Narrative Radiology [...] TIME: 12:06 PM documented in this encounter [facility] 09-21-2021 Miscellaneous Notes Mrs Sorto called and she would like to schedule her yearly follow up appointment with DR. James Diana and cell number: [phone] Kind Regards, Nima Wilkinson documented in this encounter [facility] 04-29-2021 Note HISTORY: Bone densit y screening. [...] signed by Gonsalo Alvarez on 04/29/2021 [id number] [facility] 04-01-2020 History of Present illness Narrative Radiology [...] IV DATA: Not applicable SIGNED BY: Roma Reeyz RT April 01, 2020 1:04 PM documented in this encounter [facility] 12-20-2019 History of Present illness Narrative Radiology [...] IV DATA: Not applicable SIGNED BY: Altagracia Nguyen Rt December 20, 2019 12:45 PM documented in this encounter [facility] Evaluation note Diagnosis Renal artery aneurysm (HCC)- Primary Aneurysm of renal artery Abdominal aortic aneurysm without rupture (HCC) Abdominal aneurysm without mention of rupture [facility] [place] [facility] Diagnosis Encounter for screening mammogram for breast cancer- Primary [facility] [place] [facility] Diagnosis Renal artery aneurysm (HCC) Aneurysm of renal artery [facility] Diagnosis Encounter for screening mammogram for breast cancer- Primary Stage 1 breast cancer, ER-, left (HCC) [facility] Diagnosis Encounter for screening mammogram for breast cancer [facility] Diagnosis S/P TKR (total knee replacement), left [facility] Diagnosis Primary osteoarthritis of left knee Primary localized osteoarthrosis, lower leg [facility] S/P total knee arthroplasty, left [facility] Diagnosis Viral upper respiratory tract infection- Primary Acute upper respiratory infections of unspecified site Cough, unspecified type Insomnia, unspecified type Morbid obesity (CMS/HCC) Morbid obesity History of breast cancer Personal history of malignant neoplasm of breast documented in this encounter [facility]* Diagnosis Preop examination- Primary Preoperative examination, unspecified Primary osteoarthritis of left knee Primary localized osteoarthrosis, lower leg Renal artery aneurysm (HCC) Aneurysm of renal artery Essential hypertension Unspecified essential hypertension History of breast cancer Personal history of malignant neoplasm of breast Pain Generalized pain documented in this encounter [facility] for referral (narrative)* Diagnostic Procedure Only (Routine) - Pending Review Specialty Diagnoses / Procedures Referred By Elisha tang Referred To Contact BR IMAGING Diagnoses Encounter for screening mammogram for breast cancer Procedures JAKE SCREENING SCREENING MAMMOGRAPHY BI 2-VIEW BREAST INC Sharon Gallagher APRN.CNP [address] [place] [id number] [facility] [address] [place] [address] Referral ID Status Reason Start Date Expiration Date Visits Requested Visits Authorized [id number] Pending Review Auto-Generat ed Referral 11/20/2021 12/20/2022 1 1 [facility] (n[facility] Diagnostic Procedure Only (Routine) - Pending Review Specialty Diagnoses / Procedures Referred By Elisha tang Referred To Contact [facility] Diagnoses Encounter for screening mammogram for breast cancer Procedures JAKE SCREENING SCREENING MAMMOGRAPHY BI 2-VIEW BREAST INC Sharon Gallagher APRN.CNP [address] [address] [facility] [email or web address] [address] Referral ID Status Reason Start Date Expiration Date Visits Requested Visits Authorized [id number] Pending Review Auto-Generat ed Referral 04/16/2023 05/16/2023 1 [facility] Diagnostic Procedure Only (Routine) - Closed Specialty Diagnoses / Procedures Referred By Contac t Referred To Contact XR IMAGING Diagnoses Pain Procedures XR WRIST GENERAL 3V PA/LAT/OBL BILATERAL RADEX WRIST COMPLETE MINIMUM 3 VIEWS Kayla Mata MD [address] [facility] [place] [place] [address] [place] [address] Referral ID Status Reason Start Date Expiration Date V isits Requested Visits Authorized [id number] Closed Auto-Generate d Referral 03/21/2023 04/19/2024 1 1 * Diagnostic Procedure Only (Routine) - Closed Specialty Diagnoses / Procedures Referred By Contac t Referred To Contact XR IMAGING Diagnoses Pain Procedures XR HAND GENERAL 3V PA/LAT/OBL BILATERAL RADEX HAND MINIMUM 3 VIEWS Kayla Mata MD [address] [place] [address] [place] [address] Referral ID Status Reason Start Date Expiration Date V isits Requested Visits Authorized [id number] Closed Auto-Generate d Referral 03/21/2023 04/19/2024 1 1 [facility] Summary Purpose Family History No Family History Records FoundNo Family History Records FoundNo Family History Records FoundNo Family History Records FoundNo Family History Records FoundNo Family History Records Found Advance Directives Documents on File Type Date Recorded 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 Advance Directive(s) Advance Directive(s) 12/05/2019 6:09 AM Advance Directive(s) 04/20/2018 10:36 AM Advance Directive(s) 04/12/2018 2:54 PM Advance Directive(s) 09/18/2012 9:11 PM Documents on File Type Date Recorded 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 Advance Directive(s) Advance Directive(s) 12/05/2019 6:09 AM Advance Directive(s) 04/20/2018 10:36 AM Advance Directive(s) 04/12/2018 2:54 PM Advance Directive(s) 09/18/2012 9:11 PM Documents on File Type Date Recorded 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 Note HNO ID: [id number] Author: Melissa Mccarthy Service: ? Author Type: Nurse Manufacturing Accountant Type: Anesthesia Procedure Notes Filed: 12/05/2019 7:44 [...] (more content not included)... Note HNO ID: [id number] Author: Melissa Mccarthy Service: ? Author Type: Nurse Manufacturing Accountant Type: Anesthesia Procedure Notes Filed: 12/05/2019 7:45 AM Note Text: ANESTHESIOLOGY PROCEDURE NOTE Spinal Block General Information Procedure Start Time/Medication Administration: 12/05/2019 7:39 AM Patient location during procedure: ORTimeout Performed Pre-procedure: timeout performed Consent Obtained: Yes (via Surgical Consent) Patient identity confirmed: arm band Reason for Block: primary surgical anesthetic Staffing UNIX CONSULTANT: Jailene Mccarthy Preparation Sterility Preparation: hand hygiene [...] not included)... Procedure Findings Note HNO ID: [id number] Author: Melissa Mccarthy Service: ? Author Type: Nurse Manufacturing Accountant Type: Anesthesia Procedure Notes Filed: 12/05/2019 7:44 [...] (more content not included)... Note HNO ID: [id number] Author: Melissa Mccarthy Service: ? Author Type: Nurse Manufacturing Accountant Type: Anesthesia Procedure Notes Filed: 12/05/2019 7:45 AM Note Text: ANESTHESIOLOGY PROCEDURE NOTE Spinal Block General Information Procedure Start Time/Medication Administration: 12/05/2019 7:39 AM Patient location during procedure: ORTimeout Performed Pre-procedure: timeout performed Consent Obtained: Yes (via Surgical Consent) Patient identity confirmed: arm band Reason for Block: primary surgical anesthetic Staffing UNIX CONSULTANT: Jailene NavasBlack Top RakerElayne Mccarthy Preparation Sterility Preparation: hand hygiene performed [...] Referral Specialty Diagnoses / Procedures Referred By Elisha t Referred To Contact CT IMAGING Diagnoses Renal artery aneurysm (HCC) Procedures CTA ABD/PEL WO/W IVCON CT ANGIO ABD&PLVIS CNTRST MTRL W/WO CNTRST Paco Haddad MD [address] [place] [address] Ct Imaging Referral ID Status Reason Start Date Expiration Date Visits Requested Visits Authorized [id number] Authorized Auto-Generat ed Referral 09/23/2021 10/23/2022 1 1 Additional Source Comments INFORMATION SOURCE (unrecogn ized section and content) DATE CREATED AUTHOR 12/08/2019 [facility] DATE CREATED AUTHOR AUTHOR'S ORGANIZ ATION 10/22/2021 [facility] dical Specialist DATE CREATED AUTHOR AUTHOR'S ORGANIZ ATION 05/08/2022 [facility] DATE CREATED AUTHOR AUTHOR'S ORGANIZ ATION 04/14/2023 [facility] DATE CREATED AUTHOR AUTHOR'S ORGANIZ ATION 04/27/2023 [facility] DATE CREATED AUTHOR AUTHOR'S ORGANIZ ATION 01/10/2024 [facility] dical Specialists EPIC Source Comments (unrecognize d section and content) In the event this informatio n is protected by the Federal Confidentiality of Alcohol and Drug Abuse Patient Records regulations: The Federal rules restrict any use of the information to criminally investigate or prosecute any alcohol or drug abuse patient.[facility] the event this information is protected by the Federal Confidentiality of Alcohol and Drug Abuse Patient Records regulations: The Federal rules restrict any use of the information to criminally investigate or prosecute any alcohol or drug abuse patient.[facility] the event this information is protected by the Federal Confidentiality of Alcohol and Drug Abuse Patient Records regulations: The Federal rules restrict any use of the information to criminally investigate or prosecute any alcohol or drug abuse patient.[facility] the event this information is protected by the Federal Confidentiality of Alcohol and Drug Abuse Patient Records regulations: The Federal rules restrict any use of the information to criminally investigate or prosecute any alcohol or drug abuse patient.[facility] the event this information is protected by the Federal Confidentiality of Alcohol and Drug Abuse Patient Records regulations: The Federal rules restrict any use of the information to criminally investigate or prosecute any alcohol or drug abuse patient.[facility] the event this information is protected by the Federal Confidentiality of Alcohol and Drug Abuse Patient Records regulations: The Federal rules restrict any use of the information to criminally investigate or prosecute any alcohol or drug abuse patient.[facility] the event this information is protected by the Federal Confidentiality of Alcohol and Drug Abuse Patient Records regulations: The Federal rules restrict any use of the information to criminally investigate or prosecute any alcohol or drug abuse patient.[facility] the event this information is protected by the Federal Confidentiality of Alcohol and Drug Abuse Patient Records regulations: The Federal rules restrict any use of the information to criminally investigate or prosecute any alcohol or drug abuse patient.[facility] the event this information is protected by the Federal Confidentiality of Alcohol and Drug Abuse Patient Records regulations: The Federal rules restrict any use of the information to criminally investigate or prosecute any alcohol or drug abuse patient.[facility] the event this information is protected by the Federal Confidentiality of Alcohol and Drug Abuse Patient Records regulations: The Federal rules restrict any use of the information to criminally investigate or prosecute any alcohol or drug abuse patient.[facility] the event this information is protected by the Federal Confidentiality of Alcohol and Drug Abuse Patient Records regulations: The Federal rules restrict any use of the information to criminally investigate or prosecute any alcohol or drug abuse patient.[facility] Reason for Visit (unrecogniz ed section and content) Reason Comments Appointment Reason Comments Radiology CT Specialty Diagnoses / Procedures Referred By Contac t Referred To Contact CT IMAGING Diagnoses Renal artery aneurysm (HCC) Procedures CTA ABD/PEL WO/W IVCON CT ANGIO ABD&PLVIS CNTRST MTRL W/WO CNTRST Paco Haddad MD [address] [place] [address] Ct Imaging Referral ID Status Reason Start Date Expiration Date V isits Requested Visits Authorized [id number] Closed Auto-Generate d Referral 09/23/2021 10/23/2022 1 1 Reason Comments Established Patient Reason Comments Radiology Mammogram Specialty Diagnoses / Procedures Referred By Contac t Referred To Contact [facility] Diagnoses Encounter for screening mammogram for breast cancer Procedures JAKE SCREENING SCREENING MAMMOGRAPHY BI 2-VIEW BREAST INC Sharon Gallagher, FISH FRYER.FOOD BEVERAGE SUPERVISOR [address] [facility] [address] [place] [address] [facility] [address] [place] [address] Referral ID Status Reason Start Date Expiration Date V isits Requested Visits Authorized [id number] Closed Auto-Generate d Referral 11/20/2021 12/20/2022 1 1 Reason Comments Radio Gen RMP Reason Comments Radiology XR Reason Comments Cough Nasal Congestion Reason Comments Radio Gen RMP Radiology Service Pr ogress NotePATIENT NAME: Gilda SortoMRN: [id number] OF SERVICE: April 12, 2023TIME: 12:30 PMPATIENT IDENTITY VERIFICATION COMPLETED USING TWO (2) IDENTIFIERS: Name and Date of confirmed by patient verbally.FALL SCREENING: Has the patient had 2 falls in the last year or 1 fall with injury or currently using an Ambulatory Assistive Device (Walker, Cane, Wheelchair, Crutches, etc.)? NoPATIENT GENDER DATA: Female. status: : No Br Specialty Diagnoses / Procedures Referred By Contac t Referred To Contact XR IMAGING Diagnoses Pain Procedures XR WRIST GENERAL 3V PA/LAT/OBL BILATERAL RADEX WRIST COMPLETE MINIMUM 3 VIEWS Kayla Mata MD [address] [place] [address] [place] [address] Referral ID Status Reason Start Date Expiration Date V isits Requested Visits Authorized [id number] Closed Auto-Generate d Referral 03/21/2023 04/19/2024 1 1 Care Teams (unrecognized sec tion and content) Gore Stitcher Relationship Specialty Start Date End Date Gonsalo Hubbard MD [address] [facility] [address] [place] [address] PCP - General 08/31/00 Gore Stitcher Relationship Specialty Start Date End Date Gonsalo Hubbard MD [address] [place] [address] PCP - General 08/31/00 Gore Stitcher Relationship Specialty Start Date End Date Gonsalo Hubbard MD [address] [place] [address] PCP - General 08/31/00 Gore Stitcher Relationship Specialty Start Date End Date Gonsalo Hubbard MD [address] [place] [address] PCP - General 08/31/00 Gore Stitcher Relationship Specialty Start Date End Date Gonsalo Hubbard MD [address] [place] [address] PCP - General 08/31/00 Gore Stitcher Relationship Specialty Start Date End Date Gonsalo Hubbard MD [address] [place] [address] PCP - General 08/31/00 Gore Stitcher Relationship Specialty Start Date End Date Gonsalo Hubbard MD [address] [place] [address] PCP - General 08/31/00 Gore Stitcher Relationship Specialty Start Date End Date Gonsalo Hubbard MD [address] [place] [address] PCP - [employer] 05/16/21 Gonsalo Hubbard MD [address] [place] [address] PCP - General Internal Medicine 12/07/22 Eliud Weiss DPM [address] [place] [address] Referring Physician Podiatry 04/20/23 Ifeanyi Leavitt MD [address] [place] [address] Consulting Physician Dermatology 04/26/23 Sandro Trejo MD [address] [place] [address] [place] [address] Consulting Physician Ophthalmology 04/26/23 Dr Ramirez [facility] Vascular Surgery 11/25/21 Gore Stitcher Relationship Specialty Start Date End Date Gonsalo Hubbard MD [address] [address] [place] [address] PCP - General 08/31/00 FOR RECORDS PERTAINING TO PATIENTS WHO ARE [...] BE BASED ON THE PRIMARY CLINICAL RECORDS. [facility] [employer] [facility]. provides no warranty or guarantee of the accuracy or completeness of information in this document.
== END 2024-02-02 11:51 | disposition home or self-care (01) ==
LOC: VC 10:24
PROVIDERS: PCP Radiology Diagnostic Radiology; Visit Provider Radiology Diagnostic Radiology
DX: I83.813 Varicose veins of bilateral lower extremities with pain (principal)
CPT/HCPCS: 36466

== ENCOUNTER 2024-02-08 10:05 | Outpatient (OUT) | payer MEDICARE, SELFPAY ==
--- NOTE | 2024-02-08 09:25 | VEINCLINIC_ITS ---
Vital Signs 02/08/24 10:10 Height 5 ft 4 in Weight 95.7 kg BMI 36.2 Varicose Veins Patient in today for follow up ultrasound of right lower extremity following treatment of Varithena/microfoam completed on 02/02/24. Carlos Garcia MD personally performed the services described in this documentation, as scribed by Charisma Alexandre RDMS in my presence and it is both accurate and complete. Charisma Garcia RDMS, am scribing for, and in the presence of, Dr. Thania Yeung and in the presence of the patient. thigh: bilateral (symptoms left > right leg), knee: bilateral, calf: bilateral, ankle: bilateral and beltre: bilateral aching, cramping and dull 5 20 years Worsened in recent months: Yes standing elevating extremities, compression stockings and exercise Reports fatigue, heaviness, limb pain, edema and leg edema History of lower extremity trauma: No Superficial thrombophlebitis: No Family history of varicose veins: yes (Patient's mother) Has patient had previous lower extremity venous surgery: Yes Patient has previously received the following treatment(s) for lower extremity varicose veins: Reports sclerotherapy and laser therapy Does patient have a history of : yes Does patient intend to have future pregnancies: no Has patient had lower extremity venous scan with relux testing: Yes Support hose used: Yes Problems walking or doing physical activity: Yes How does it affect you: decreased ability secondary to pain/edema Do you walk much: Yes Do you stand much: No Review of Systems ROS Narrative Carlos Garcia MD personally performed the services described in this documentation, as scribed by Charisma Alexandre RDMS in my presence and it is both accurate and complete. Charisma Garcia RDMS, am scribing for, and in the presence of, Dr. Thania Yeung and in the presence of the patient. Status of ROS 10 or more systems reviewed and unremark able except as noted in history and below Cardiovascular Reports: edema Integumentary/Breast Reports: skin pain, skin tenderness and changes in skin color Neurological Reports: weakness in extremities [facility] Medical History (Updated 02/08/24 @ 09:26 by Charisma Alexandre) Phlebitis and thrombophlebitis of superficial vessels of right lower extremity ?I80.01 - Phlebitis and thrombophlebitis of superficial vessels of right lower extremity (ICD-10) Phlebitis and thrombophlebitis of superficial vessels of left lower extremity ?I80.02 - Phlebitis and thrombophlebitis of superficial vessels of left lower extremity (ICD-10) Renal artery aneurysm ?I72.2 - Aneurysm of renal artery (ICD-10) delivery delivered ?O82 - Encounter for delivery without indication (ICD-10) Pain due to varicose veins of both lower extremities ?I83.813 - Varicose veins of bilateral lower extremities with pain (ICD-10) Squamous cell carcinoma Hyperparathyroidism ?E21.3 - Hyperparathyroidism, unspecified (ICD-10) 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 - Other specified disorders of arteries and arterioles (ICD-10) Hypertension ?I10 - Essential (primary) hypertension (ICD-10) Cataract ?H26.9 - Unspecified cataract (ICD-10) Breast cancer ?C50.919 - Malignant neoplasm of unspecified site of unspecified female breast (ICD-10) Arthritis ?M19.90 - Unspecified osteoarthritis, unspecified site (ICD-10) Anxiety ?F41.9 - Anxiety disorder, unspecified (ICD-10) Surgical History (Updated 02/02/24 @ 12:54 by Veto Allred) S/P sclerotherapy of varicose veins ?Z98.890 - Other specified postprocedural states (ICD-10) ?Z86.79 - Personal history of other diseases of the circulatory system (ICD- 10) Status post ablation of incompetent vein using laser ?Z98.890 - Other specified postprocedural states (ICD-10) History of arthroplasty of left knee ?Z96.652 - Presence of left artificial knee joint (ICD-10) History of tonsillectomy and adenoidectomy ?Z90.89 - Acquired absence of other organs (ICD-10) H/O: hysterectomy ?Z90.710 - Acquired absence of both cervix and uterus (ICD-10) History of surgical removal of squamous cell carcinoma of skin of gnosticism region ?Z98.890 - Other specified postprocedural states (ICD-10) ?Z85.828 - Personal history of other malignant neoplasm of skin (ICD-10) H/O parathyroidectomy ?Z98.890 - Other specified postprocedural states (ICD-10) ?Z90.89 - Acquired absence of other organs (ICD-10) Hx of appendectomy ?Z90.49 - Acquired absence of other specified parts of digestive tract (ICD- 10) Family History (Updated 01/17/24 @ 11:24 by Veto Allred) Other Family history of hypertension Heart disease Pain due to varicose veins of both lower extremities Social History (Updated 01/17/24 @ 11:24 by Veto Allred) Within the past year, how often did you have a drink containing alcohol: 2-4 times a month Smoking status: Never smoker Non-prescribed substance use: denies use Meds Home Medications and Allergies Home Medications ?Medication ?Instructions ?Recorded ?Confirmed ?Type lorazepam 0.5 mg tablet (Ativan) 0.25 mg PO DAILY PRN anxiety 01/17/24 01/17/24 History multivitamin (Daily Multi-Vitamin 1 tab PO DAILY 01/17/24 01/17/24 History tablet) omeprazole 40 mg capsule,delayed 40 mg PO DAILY 01/17/24 01/17/24 History release triamterene 37.5 1 cap PO DAILY 01/17/24 01/17/24 History mg-hydrochlorothiazide 25 mg capsule zolpidem 5 mg tablet (Ambien) 01/17/24 History Allergies Allergy/AdvReac Type Severity Reaction Status Date / Time TRACY Inhibitors Allergy Severe Swelling Verified 01/17/24 11:28 of Lip/Tongue/Throat doxycycline Allergy Intermediate Rash Verified 01/17/24 11:28 nitrofurantoin Allergy Intermediate Rash Verified 01/17/24 11:28 Sulfa (Sulfonamide Allergy Rash Verified 01/17/24 11:28 Antibiotics) Exam Narrative Exam Narrative: ICarlos MD personally performed the services described in this documentation, as scribed by Charisma Alexandre RDMS in my presence and it is both accurate and complete. IChraisma RDMS, am scribing for, and in the presence of, Dr. Thania Yeung and in the presence of the patient. Constitutional Documenting provider has reviewed patient's vital signs: yes Common normals: oriented x3 Cardio Peripheral pulses: posterior tibial pulses present and dorsalis pedis pulses present Extremity Common normals: normal capillary refill General: calf tenderness and edema Right lower extremity: lower leg Right lower leg: inspection and palpation Left lower extremity: lower leg Left lower leg: inspection and palpation Neuro Common normals: oriented x3 Results Imaging Venous US: Radiologist's impression: Chemically induced thrombus in multiple varicose veins in right leg. Carlos Garcia MD personally performed the services described in this documentation, as scribed by Charisma Alexandre RDMS in my presence and it is both accurate and complete. Charisma Garcia RDMS am scribing for, and in the presence of, Dr. Thania Yeung and in the presence of the patient. Assessment and Plan Assessment and Plan (1) Phlebitis and thrombophlebitis of superficial vessels of right lower extremity: Plan Plan is for patient to return for Varithena/microfoam of right leg on 02/23/24. Carlos Garcia MD personally performed the services described in this documentation, as scribed by Charisma Alexandre RDMS in my presence and it is both accurate and complete. Charisma Garcia RDMS am scribing for, and in the presence of, Dr. Thania Yeung and in the presence of the patient.
[2024-02-08 10:10] VITALS: BMI 36.2
--- OUTSIDE RECORDS SUMMARY | 2024-02-08 10:10 | XMS_ITS | CCD ---
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 Name Role Phone Gonsalo Hubbard MD Primary [...] Gonsalo Hubbard MD Primary Care Provider Abhishek TASI, Eliud Cuevas Unavailable Ifeanyi Leavitt MD Unavailable [phone] Sandro Trejo MD Unavailable [phone] GONSALO HUBBARD Referring Unavailable SAMIA SANZ Attending Unavailable GONSALO HUBBARD Attending Unavailable GRAZYNA BERMUDEZ Attending Unavailable GRAZYNA BERMUDEZ Referring Unavailable GONSALO HUBBARD Attending Unavailable Zaki JACK, Gonsalo Ch Primary Care Provider [phone] Allergies Allergy Classification Reported Allergen(s) Allergy Type Date of Onset Reaction(s) Facility (14 sources) Doxycycline; Translations: [DOXYCYCLINE] Drug Allergy 8 Rash [facility] Work Phone: (14 sources) Sulfonamides (Antibiotic); Translations: [SULFA (SULFONAMIDE ANTIBIOTICS)] Drug Allergy 4 Anaphylaxis, Unknown [facility] (1 source) Doxycycline Drug Allergy 2 [facility] (1 source) Sulfonamides (Antibiotic) Drug allergy (disorder) 2 [facility] (2 sources) Angiotensin-conver ting enzyme [...] Comment on above: Take 4 capsules by [facility] 1 hour before dental procedure ascorbic acid [...] SIOBHAN (generalized anxiety disorder) (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; Translations: [Other care home (current) drug therapy] Onset: 01-12-2022 Episodic Other [...] n 04-19-2023 MM screening mammo BI w/CAD [facility] Main [place] [address] [place] [address] Mammography Report Signed Patient: Gilda Sorto MR#: [id number] 0 : 1950 Acct:[id number] Age/Sex: 72 / F ADM Date: 04/19/23 Loc: [place] Room: Type: [facility] Attending Dr: Gonsalo Hubbard MD Copies to: [...] Azam Cason M.D.04/19/2023 1:37 PM Dictation Location: [facility] Transcribed By: ISABELA 04/19/231336 Dictated By: Azam Cason II, MD 04/19/231331 Signed By: 04/19/231336 [facility] CNOVon 04-12-2023 CNOV Office Visit (PLASST ) GILDA SORTO ([id number]) 1950 F Date Time Provider Department 04/12/23 1:00 PM KAYLA MATA During your visit today, we recorded the following information about you: Kayla Mata MD 04/12/2023 4:51 PM Signed PLASTIC SURGERY DEPARTMENT [facility] Hand Surgery Note [x] New [...] [x] Anticoagula (more content not included)... Normal [facility] No Panel Informationon 04-12 Radiology Study observation (narrative) [facility] XR HAND 3V PA/LAT/OBL BILon 04-12-2023 XR [...] 1. Osteoarthritis of both hands and wrists. Pedicab Driver: CHARLOTTE Transcribe Date/Time: Apr 12 2023 1:52P Dictated by : EDITH LAZO MD This examination was interpreted and the report reviewed and electronically signed by: EDITH LAZO MD on Apr 12 2023 1:54PM EST [id number] Normal [facility] XR Hand - bilateral PA and L ateral and Obliqueon 04-12-2023 IMPRESSION: 1. Osteoarthritis of both hands and wrists. Pedicab Driver: CHARLOTTE Transcribe Date/Time: Apr 12 2023 1:52P Dictated by : EDITH LAZO MD This examination was interpreted and the report reviewed and electronically signed by: EDITH LAZO MD on Apr 12 2023 1:54PM [facility] DIVISION OF RADIOLOGY * * *Final Report* [...] erosions are demonstrated. DIVISION OF RADIOLOGY Provider, [facility] - 04/12/2023 * * *Final Report* [...] 1. Osteoarthritis of both hands and wrists. Pedicab Driver: CHARLOTTE Transcribe Date/Time: Apr 12 2023 1:52P Dictated by : EDITH LAZO MD This examination was interpreted and the report reviewed and electronically signed by: EDITH LAZO MD on Apr 12 2023 1:54PM EST [facility] XR Hand - bilateral PA and L ateral and ObliqueOrdered By: Ccf Provider on 04-12-2023 [facility] XR WRIST 3V PA/LAT/OBL BILon 04-12-2023 XR [...] IMPRESSION: 1. Degenerative arthrosis of both wrists. Pedicab Driver: [facility] Transcribe Date/Time: Apr 12 2023 1:54P Dictated by : EDITH LAZO MD This examination was interpreted and the report reviewed and electronically signed by: EDITH LAZO MD on Apr 12 2023 1:55PM EST [id number] Normal [facility] XR Wrist - bilateral PA and Lateral and Obliqueon 04-12-2023 IMPRESSION: 1. Degenerative arthrosis of both wrists. Pedicab Driver: CHARLOTTE Transcribe Date/Time: Apr 12 2023 1:54P [...] erosions are demonstrated. DIVISION OF RADIOLOGY Provider, [facility] - 04/12/2023 * * *Final Report* [...] IMPRESSION: 1. Degenerative arthrosis of both wrists. Pedicab Driver: CHARLOTTE Transcribe Date/Time: Apr 12 2023 1:54P Dictated by : EDITH LAZO MD This examination was interpreted and the report reviewed and electronically signed by: EDITH LAZO MD on Apr 12 2023 1:55PM EST [facility] CNCOon 04-16-2022 CNCO HNO ID: [id number] Author: Mammography Coordinator Service: ? Author Type: Physician Type: Letter Filed: 04/19/2022 11:36 PM Note Text: April 16, 2022 PID: [id number] Gilda Sorto [address] [place] [address] Dear Ms. Sorto, We are pleased to [...] report will be kept on file at [facility] as part of your permanent medical record and are available for your continuing care. Thank you for allowing us to help in meeting your health care needs. Sincerely, Dr. Perez Interpreting Radiologist [facility] (Normal over 40) Normal [facility] CNOVSPon 04-16-2022 CNOVSP Visit (SP) Office (HEMCA4) GILDA SORTO ([id number]) 1950 F Date Time Provider Department 04/16/22 12:30 PM SHARON SALDIVAR [facility] During your visit today, we recorded the following information about you: Temperature Pulse Respiration Blood pressure 98.1 degrees 85/minute 20/minute 117/60 Sue Leblanc MA 04/16/2022 11:54 AM Signed Additional intake questions: Has the patient had fever, nausea, vomiting, diarrhea, constipation, fatigue for > 1 week? No Does the patient have a decreased appetite? No Does patient want to see a Foundation Drill Operator Helper? No (yes to any of above refer patient to schedulers for dietitian appointment) ) Does patient have any new or increased numbness or tingling of extremities? No Is patient interested in fertility information? No Does patient need any prescription refills? No Does patient have an advanced directive in place? Yes, copies are in Epic Electronically Signed By: WESLEY Thomas APRN.SCRIPT WRITER 04/16/2022 2:06 PM Signed ATTENDING PHYSICIAN: Dr. [...] which included preparing to see the patient, [id number] patient care, completing clinical documentation, performing a medically appropriate examination, counseling and educating the patient/family/caregive r, ordering medications, tests, or procedures, communicating with other HCPs (not separately reported), independently interpreting results (not separately reported), communicating results to the patient/family/caregive r, and care coordination (not separately reported). Sharon Saldivar APRN.[facility] Referring Provider: SHARON SALDIVAR [[id number]] Allergies As of Date: 04/16/2022 Noted Allergy [...] Z17.1] Order(s):WESLEY (more content not included)... Normal [facility] JAKE SCREENING W TOMOon 04-16 JAKE SCREENING W JOE * * *Final Report* * * DATE OF EXAM: Apr 16 2022 11:12AM CAW 0582 - JAKE SCREENING W JOE / PROCEDURE REASON: Encounter for screening mammogram for breast cancer * * * * Physician Interpretation * * * * RESULT: #[id number] - JAKE SCREENING W JOE BILATERAL DIGITAL [...] to exams dated: 11/24/2020 mammogram - [facility], 11/22/2019 mammogram, 11/14/2018 mammogram - [facility], 11/11/2017 mammogram, and 11/02/2016 mammogram - [facility]. There are scattered fibroglandular elements [...] screening mammogram is recommended. Bernardo garay/ayde:04/16/2022 11:38:26 [place] Cutter(s): RT Mario(Mason)(M)(BS), [facility] letter sent: Normal over 40 Mammogram [...] Health, Family Medicine, and Medical/Surgical Oncology, the [facility] has carefully reviewed the data and reached [...] their providers when to stop screening mammograms. Pedicab Driver: Ayde Transcribe Date/Time: Apr 16 2022 11:12A Dictated by : BERNARDO PEREZ MD This examination was interpreted and the report reviewed and electronically signed by: BERNARDO PEREZ MD on Apr 16 2022 11:38AM EST [id number] [facility] SARS-CoV-2,INFLUENZA A/B NUC LEI ACID TESTon 12-15-2021 EUA DISCLAIMER [facility] Comment on above: Result Comment: [...] is terminated or revoked sooner. Performed at [facility] [address] [facility] [address] FLU A by PCR Negative [facility] FLU B by PCR Negative [facility] SARS-CoV-2 (COVID-19) RNA ANGELICA+probe Ql (Unsp spec) Abnormal NEG [facility] Comment on above: Result Comment: Posi tive for COVID-19 CRITICAL VALUE-PHYSICIAN MUST BE NOTIFIED RESULTS PHONED TO: Carmel Tinajero RN at 0928 VERBAL RESULT VERIFICATION RECEIVED EUA DISCLAIMER Normal [facility] Comment on above: Result [...] is terminated or revoked sooner. Performed at [place] [address] FLU A by PCR Negative Normal [facility] FLU B by PCR Negative Normal [facility] SARS-CoV-2 (COVID-19) RNA ANGELICA+probe Ql (Unsp spec) Abnormal NEG [facility] Comment on above: Result Comment: Posi tive for COVID-19 CRTV RESULTS PHONED TO: Jenny Fitzaptrick RN at 0854 VERBAL RESULT VERIFICATION RECEIVED CBC with Diffon 12-09-2021 AB IMMATURE NEUT 0.02 K/UL Normal 0.0-0.1 [facility] ABS BASO 0.02 K/UL Normal 0.00-0.22 [facility] ABS EOS 0.32 K/UL Normal 0-0.45 [facility] ABS NEUTROPHILS 4.34 K/UL Normal 1.8-7.7 [facility] ABS.NEUT.CALCULATED 4.34 K/UL Normal [facility] Comment on above: Result Comment: Perf ormed at [address] [address] Basophils/100 WBC (Bld) 0.30 % Normal 0-1 [facility] DIFF TYPE AUTO DIFF Normal [facility] Eosinophils/100 WBC (Bld) 5.10 % High 0-3 [facility] Erythrocyte distribution width (RBC) [Ratio] 12.7 % Normal 11.7-15.0 [facility] Hematocrit (Bld) [Volume fraction] 41.9 % Normal 36-44 [facility] Hemoglobin (Bld) [Mass/Vol] 13.5 g/dL Normal 12.0-15.0 [facility] Lymphocytes (Bld) [#/Vol] 1.15 10*3/uL Low 1.2-3.2 [facility] Lymphocytes/100 WBC (Bld) 18.30 % Low 20-40 [facility] MCH (RBC) [Entitic mass] 31.0 pg Normal 26-34 [facility] MCHC 32.2 % Normal 31-37 [facility] MCV (RBC) [Entitic vol] 96.3 fL Normal 80-100 [facility] MEAN PLT VOL 9.0 CU Normal 7.0-12.6 [facility] Monocytes (Bld) [#/Vol] 0.44 10*3/uL Normal 0-0.8 [facility] Monocytes/100 WBC (Bld) 7.00 % Normal 0-8 [facility] Neutrophils/100 WBC (Bld) 0.30 % Normal 0.0-1.0 [facility] Neutrophils/100 WBC (Bld) 69.00 % Normal 50-70 [facility] Platelets (Bld) [#/Vol] 240 10*3/uL Normal 150-450 [facility] RBC (Bld) [#/Vol] 4.35 10*6/uL Normal 4.0-4.9 [facility] RDW-SD 45.4 FL Normal 37.0-54.0 [facility] WBC (Bld) [#/Vol] 6.3 10*3/uL Normal 4.5-11.0 [facility] COMPREHENSIVE METABOLIC PANE Juanito 12-09-2021 Albumin [Mass/Vol] 4.2 g/dL Normal 3.5-5.0 [facility] Albumin/Globulin [Mass ratio] 1.6 {ratio} Normal 1.5-3.0 [facility] ALP [Catalytic activity/Vol] 80 U/L Normal 35-125 [facility] ALT [Catalytic activity/Vol] 26 U/L Normal 5-40 [facility] Anion gap [Moles/Vol] 7 mmol/L Normal 0-19 [facility] AST [Catalytic activity/Vol] 32 U/L Normal 5-40 [facility] Bilirubin [Mass/Vol] 0.3 mg/dL Normal 0.1-1.2 [facility] Calcium [Mass/Vol] 9.4 mg/dL Normal 8.5-10.4 [facility] Chloride [Moles/Vol] 103 mmol/L Normal 97-107 [facility] CO2 [Moles/Vol] 31 mmol/L Normal 24-31 [facility] Creatinine [Mass/Vol] 1.2 mg/dL Normal 0.4-1.6 [facility] ESTIMATED GFR 48 mL/min/1.73 m2 Normal [facility] Comment on above: Result Comment: CALCULATIONS OF ESTIMATED GFR ARE PERFORMED USING THE 2020 CKD-EPI STUDY REFIT EQUATION WITHOUT THE RACE VARIABLE FOR THE IDMS-TRACEABLE CREATININE METHODS. https://jasn.asnjournals.org/content/early//ASN.3482350 988 Performed at [place] [address] Globulin (S) [Mass/Vol] 2.6 g/dL Normal 1.9-3.7 [facility] Glucose [Mass/Vol] 87 mg/dL Normal 65-99 [facility] Potassium [Moles/Vol] 4.8 mmol/L Normal 3.4-5.1 [facility] Protein [Mass/Vol] 6.8 g/dL Normal 5.9-7.9 [facility] Sodium [Moles/Vol] 141 mmol/L Normal 133-145 [facility] Urea nitrogen [Mass/Vol] 13 mg/dL Normal 8-25 [facility] Urea nitrogen/Creatinine [Mass ratio] 10.8 mg/mg Normal 8-21 [facility] UA-REFLEX TO CULTUREon 12-09 EPI Normal [facility] Comment on above: Result Comment: Occa sional SQUAMOUS Performed at [address] [address] RBC NONE SEEN Normal 0-3 [facility] Urinalysis dipstick W Reflex Microscopic panel (U) MANUAL MICROSCOPIC URINES Normal [facility] WBC NONE SEEN Normal 0-3 [facility] Bacteria identified Cx Nom (U) CULTURE NOT INDICATED Normal [facility] Comment on above: Result Comment: CULT URE NOT INDICATED Performed at [address] [address] BILI Negative Normal NEG [facility] Clarity (U) CLEAR Normal [facility] Color (U) YELLOW Normal [facility] GLUC Negative Normal NEG [facility] Hemoglobin Ql (U) Negative Normal NEG [facility] KET Negative Normal NEG [facility] LEUK Negative Normal NEG [facility] NIT Negative Normal NEG [facility] pH (U) 8.0 [pH] Normal 4.6-8.0 [facility] PROT Negative Normal NEG [facility] SP GRAV,URINE 1.015 Normal 1.005-1.030 [facility] URO 0.2 MG/DL Normal 0-1.0 [facility] CREATININE, BLOOD (POC)on Creatinine [Mass/Vol] 1.20 mg/dL 0.7 - 1.4 mg/dL [facility] eGFR (POCT) 48 mL/min/1.73 m2 [facility] CTA ABD/PEL W IVCONon 2021 [facility] MRI Shoulder w/o Righton MRI Shoulder w/o [...] 10/21/2021 1010 Normal [facility] Specialist Complete Blood Count with Au to Diffon 04-21-2021 Basophils (Bld) [#/Vol] 0.03 10*3/uL Normal 0.00-0.20 [facility] Comment on above: Performed By: #### C BCAD, VITD, LIPD, CMP #### [facility] [address] [place], [place] [id number] Basophils/100 WBC (Bld) 0.5 % Normal [facility] Specialist Comment on above: Performed By: #### C BCAD, VITD, LIPD, CMP #### [facility] [address] [place], [place] [id number] Eosinophils (Bld) [#/Vol] 0.27 10*3/uL Normal 0.02-0.50 [facility] Specialist Comment on above: Performed By: #### C BCAD, VITD, LIPD, CMP #### [facility] [address] [place], [place] [id number] Eosinophils/100 WBC (Bld) 4.6 % Normal [facility] Comment on above: Performed By: #### C BCAD, VITD, LIPD, CMP #### [facility] [address] [place], [place] [id number] Erythrocyte distribution width (RBC) [Ratio] 13.1 % Normal 11.0-15.0 [facility] Specialist Comment on above: Performed By: #### C BCAD, VITD, LIPD, CMP #### [facility] [address] [place], [place] [id number] Hematocrit (Bld) [Volume fraction] 43.9 % Normal 35.0-47.0 [facility] Specialist Comment on above: Performed By: #### C BCAD, VITD, LIPD, CMP #### [facility] [address] [place], [place] [id number] Hemoglobin (Bld) [Mass/Vol] 14.0 g/dL Normal 11.6-15.5 [facility] Specialist Comment on above: Performed By: #### C BCAD, VITD, LIPD, CMP #### [facility] [address] [place], [place] [id number] Lymphocytes (Bld) [#/Vol] 1.9 10*3/uL Normal 0.9-3.9 [facility] Specialist Comment on above: Performed By: #### C BCAD, VITD, LIPD, CMP #### [facility] [address] [place], [place] [id number] Lymphocytes/100 WBC (Bld) 31.8 % Normal [facility] Specialist Comment on above: Performed By: #### C BCAD, VITD, LIPD, CMP #### [facility] [address] [place], [place] [id number] MCH (RBC) [Entitic mass] 30.0 pg Normal 27.0-33.0 [facility] Specialist Comment on above: Performed By: #### C BCAD, VITD, LIPD, CMP #### [facility] [address] [place], [place] [id number] MCHC (RBC) [Mass/Vol] 31.9 g/dL Low 32.0-36.0 [facility] Specialist Comment on above: Performed By: #### C BCAD, VITD, LIPD, CMP #### [facility] [address] [place], [place] [id number] MCV (RBC) [Entitic vol] 94 fL Normal 80-100 [facility] Comment on above: Performed By: #### C BCAD, VITD, LIPD, CMP #### [facility] [address] [place], [place] [id number] Monocytes (Bld) [#/Vol] 0.5 10*3/uL Normal 0.2-0.9 [facility] Specialist Comment on above: Performed By: #### C BCAD, VITD, LIPD, CMP #### [facility] [address] [place], [place] [id number] Monocytes/100 WBC (Bld) 7.9 % Normal [facility] Specialist Comment on above: Performed By: #### C BCAD, VITD, LIPD, CMP #### [facility] [address] [place], [place] [id number] Neutrophils (Bld) [#/Vol] 3.2 10*3/uL Normal 1.5-7.8 [facility] Comment on above: Performed By: #### C BCAD, VITD, LIPD, CMP #### [facility] [address] [place], [place] [id number] Neutrophils/100 WBC (Bld) 54.9 % Normal [facility] Comment on above: Performed By: #### C BCAD, VITD, LIPD, CMP #### [facility] [address] [place], [place] [id number] Platelet mean volume (Bld) [Entitic vol] 9.90 fL Normal 7.50-12.50 [facility] Comment on above: Performed By: #### C BCAD, VITD, LIPD, CMP #### [facility] [address] [place], [place] [id number] Platelets (Bld) [#/Vol] 255 10*3/uL Normal 140-400 [facility] Comment on above: Performed By: #### C BCAD, VITD, LIPD, CMP #### [facility] [address] [place], [place] [id number] RBC (Bld) [#/Vol] 4.67 10*6/uL Normal 3.90-5.20 [facility] Comment on above: Performed By: #### C BCAD, VITD, LIPD, CMP #### [facility] [address] [place], [place] [id number] RDW-SD 44.8 fL Normal 37.0-50.0 [facility] Comment on above: Performed By: #### C BCAD, VITD, LIPD, CMP #### [facility] [address] [place], [place] [id number] WBC (Bld) [#/Vol] 5.8 10*3/uL Normal 3.8-11.0 [facility] Comment on above: Performed By: #### C BCAD, VITD, LIPD, CMP #### [facility] [address] [place], [place] [id number] Comprehensive Metabolic Pane [facility] 04-21-2021 Albumin [Mass/Vol] 4.5 g/dL Normal 3.6-5.1 [facility] Comment on above: Performed By: #### C BCAD, VITD, LIPD, CMP #### [facility] [address] [place], [place] [id number] Albumin/Globulin [Mass ratio] 2.3 {ratio} Normal 1.0-2.5 [facility] Comment on above: Performed By: #### C BCAD, VITD, LIPD, CMP #### [facility] [address] [place], [place] [id number] ALP [Catalytic activity/Vol] 96 U/L Normal 35-119 [facility] Comment on above: Performed By: #### C BCAD, VITD, LIPD, CMP #### [facility] [address] [place], [place] [id number] ALT [Catalytic activity/Vol] 24 U/L Normal 6-33 [facility] Comment on above: Result Comment: 04/15 Female reference range changed. Performed By: #### C BCAD, VITD, LIPD, CMP #### [facility] [address] [place], [place] [id number] Anion gap [Moles/Vol] 18 mmol/L Normal 12-20 [facility] Specialist Comment on above: Result Comment: Effe ctive 05/21/2019 reference range changed. Performed By: #### C BCAD, VITD, LIPD, CMP #### [facility] [address] [place], [place] [id number] AST [Catalytic activity/Vol] 30 U/L Normal 9-34 [facility] Specialist Comment on above: Performed By: #### C BCAD, VITD, LIPD, CMP #### [facility] [address] [place], [place] [id number] Bilirubin [Mass/Vol] 0.51 mg/dL Normal 0.30-1.20 [facility] Comment on above: Performed By: #### C BCAD, VITD, LIPD, CMP #### [facility] [address] [place], [place] [id number] BUN/CREA 21 Ratio Normal 6-22 [facility] Specialist Comment on above: Performed By: #### C BCAD, VITD, LIPD, CMP #### [facility] [address] [place], [place] [id number] Calcium [Mass/Vol] 9.8 mg/dL Normal 8.6-10.2 [facility] Comment on above: Performed By: #### C BCAD, VITD, LIPD, CMP #### [facility] [address] [place], [place] [id number] Chloride [Moles/Vol] 103 mmol/L Normal 98-107 [facility] Comment on above: Performed By: #### C BCAD, VITD, LIPD, CMP #### [facility] [address] [place], [place] [id number] CO2 [Moles/Vol] 26 mmol/L Normal 20-31 [facility] Comment on above: Performed By: #### C BCAD, VITD, LIPD, CMP #### [facility] [address] [place], [place] [id number] Creatinine [Mass/Vol] 1.1 mg/dL Normal 0.6-1.4 [facility] Specialist Comment on above: Performed By: #### C BCAD, VITD, LIPD, CMP #### [facility] [address] [place], [place] [id number] eGFRAA 58 mL/min/1.73m2 Low >60 [facility] Specialist Comment on above: Performed By: #### C BCAD, VITD, LIPD, CMP #### [facility] [address] [place], [place] [id number] eGFRNAA 48 mL/min/1.73m2 Low >60 [facility] Specialist Comment on above: Performed By: #### C BCAD, VITD, LIPD, CMP #### [facility] [address] [place], [place] [id number] Globulin (S) [Mass/Vol] 2.0 g/dL Normal 1.9-3.7 [facility] Specialist Comment on above: Performed By: #### C BCAD, VITD, LIPD, CMP #### [facility] [address] [place], [place] [id number] Glucose [Mass/Vol] 91 mg/dL Normal 65-99 [facility] Comment on above: Result Comment: For FASTING Glucose --- ADA reference ranges: Normal 65-99 mg/dl Prediabetes 100-125 Diabetes >/= 126 Performed By: #### C BCAD, VITD, LIPD, CMP #### [facility] [address] [place], [place] [id number] Potassium [Moles/Vol] 4.5 mmol/L Normal 3.5-5.5 [facility] Comment on above: Performed By: #### C BCAD, VITD, LIPD, CMP #### [facility] [address] [place], [place] [id number] Protein [Mass/Vol] 6.5 g/dL Normal 6.1-8.1 [facility] Comment on above: Performed By: #### C BCAD, VITD, LIPD, CMP #### [facility] [address] [place], [place] [id number] Sodium [Moles/Vol] 142 mmol/L Normal 135-146 [facility] Comment on above: Performed By: #### C BCAD, VITD, LIPD, CMP #### [facility] [address] [place], [place] [id number] Urea nitrogen [Mass/Vol] 24 mg/dL Normal 7-25 [facility] Comment on above: Performed By: #### C BCAD, VITD, LIPD, CMP #### [facility] [address] [place], [place] [id number] Lipid Panelon 04-21-2021 Cholesterol [Mass/Vol] 182 mg/dL Normal 125-200 [facility] Comment on above: Result Comment: Low risk < 200mg/dL Borderline risk 201-239 mg/dl High risk > or equal to 240 Performed By: #### C BCAD, VITD, LIPD, CMP #### [facility] [address] [place], [place] [id number] Cholesterol in HDL [Mass/Vol] 62 mg/dL Normal >40 [facility] Comment on above: Result Comment: High Cardiovascular Risk HDL <40 mg/dL Low Cardiovascular Risk HDL > or equal to 60 mg/dl Performed By: #### C BCAD, VITD, LIPD, CMP #### [facility] [address] [place], [place] [id number] Cholesterol in LDL [Mass/Vol] 98 mg/dL Normal [facility] Specialist Comment on above: Result Comment: LDL ATP III CLASSIFICATION LDL less than 100 mg/dl Optimal LDL 100-129 mg/dl Near or above optimal LDL 130-159 Borderline high LDL 160-189 High LDL greater than 189 mg/dl Very High Performed By: #### C BCAD, VITD, LIPD, CMP #### [facility] [address] [place], [place] [id number] Cholesterol in VLDL [Mass/Vol] 22 mg/dL Normal [facility] Specialist Comment on above: Performed By: #### C BCAD, VITD, LIPD, CMP #### [facility] Laboratory [address] [place], [place] [id number] Cholesterol.total/Ch olesterol in HDL [Mass ratio] 3 {ratio} Normal [facility] Specialist Comment on above: Performed By: #### C BCAD, VITD, LIPD, CMP #### [facility] [address] [place], [place] [id number] Triglyceride [Mass/Vol] 108 mg/dL Normal 30-150 [facility] Nnp Comment on above: Result Comment: TRIG ATPIII CLASSIFICATIONS TRIG less than 150 mg/dl Normal TRIG 150-199 mg/dl Borderline High TRIG 200-500 mg/dl High TRIG greather than 500 mg/dl Very High Performed By: #### C BCAD, VITD, LIPD, CMP #### [facility] [address] [place], [place] [id number] Microalbumin (with Creat)on 04-21-2021 mALB <1.2 Low [facility] Specialist Comment on above: Result Comment: Unab le to calculate mALB/Crea ratio, mALB is <1.2 mg/dL mALB reference range not established. Performed By: #### m ALBC #### [facility] [address] [place], [place] [id number] UCREA 183 mg/dL Normal 28-217 [facility] Nnp Comment on above: Performed By: #### m ALBC #### [facility] [address] [facility] [place], [place] [id number] Q - URINALYSIS,COMPLETEon Appearance (U) CLEAR Normal CLEAR [facility] Nnp Comment on above: Order Comment: [facility] Testing performed at: QPT, [email or web address] [facility], [address], [address] [place] [address], [address] [place] [address], Project Estimator: Clay Sparrow MD [facility] Collection Date/Time: [facility] Results Received Date/Time: [facility] Reported Date/Time: Performed By: #### 3 4F #### [facility] Default [address] [place] [address] BACTERIA NONE SEEN Normal NONE SEEN [facility] Nnp Comment on above: Order Comment: [facility] Testing performed at: QPT, [facility], [address], [address] [place] [address], [address] [place] [address], Project Estimator: Clay Sparrow MD [facility] Collection Date/Time: [facility] Results Received Date/Time: [facility] Reported Date/Time: Performed By: #### 3 4F #### [facility] Default [address] [place] [address] Bilirubin Ql (U) Negative Normal NEGATIVE [facility] Nnp Comment on above: Order Comment: [facility] Testing performed at: QPT, [email or web address] [facility], [address], [address] [place] [address], [address] [place] [address], Project Estimator: Clay Sparrow MD [facility] Collection Date/Time: [facility] Results Received Date/Time: [facility] Reported Date/Time: Performed By: #### 3 4F #### [facility] Default [address] [place] [address] Color (U) YELLOW Normal YELLOW [facility] Nnp Comment on above: Order Comment: [facility] Testing performed at: [employer], [email or web address] [facility], [address], [address] [place] [address], [address] [place] [address], Project Estimator: Clay Sparrow MD [facility] Collection Date/Time: [facility] Results Received Date/Time: [facility] Reported Date/Time: Performed By: #### 3 4F #### [facility] Default [address] [place] [address] Glucose Ql (U) Negative Normal NEGATIVE [facility] Nnp Comment on above: Order Comment: [facility] Testing performed at: [employer], [email or web address] [facility], [address] [place] [address], [address] [place] [address], Project Estimator: Clay Sparrow MD [facility] Collection Date/Time: [facility] Results Received Date/Time: [facility] Reported Date/Time: Performed By: #### 3 4F #### [facility] Default [address] [place] [address] HYALINE CAST NONE SEEN Normal NONE SEEN [facility] Nnp Comment on above: Order Comment: [facility] performed at: [employer], [email or web address] [facility], [address] , [address] [place] [address], [address] [place] [address], Project Estimator: Clay Sparrow MD [facility] Collection Date/Time: [facility] Results Received Date/Time: [facility] Reported Date/Time: Performed By: #### 3 4F #### [facility] Default [address] [place] [address] Ketones Ql (U) Negative Normal NEGATIVE [facility] Nnp Comment on above: Order Comment: [facility] performed at: [employer], [email or web address] [facility], [address] , [address] [place] [address], [address] [place] [address], Project Estimator: Clay Sparrow MD [facility] Collection Date/Time: [facility] Results Received Date/Time: [facility] Reported Date/Time: Performed By: #### 3 4F #### [facility] Default [address] [place] [address] Leukocyte esterase Test strip Ql (U) TRACE Abnormal NEGATIVE [facility] Nnp Comment on above: Order Comment: [facility] Testing performed at: [employer], [email or web address] [facility], [address] [place] [address], [address] [place] [address], [address] [place] [address], Project Estimator: Clay Sparrow MD [facility] Collection Date/Time: [facility] Results Received Date/Time: [facility] Reported Date/Time: Performed By: #### 3 4F #### [facility] Default [address] [place] [address] Nitrite Ql (U) Negative Normal NEGATIVE [facility] Specialist Comment on above: Order Comment: [facility] Testing performed at: [employer], [email or web address] [facility], [address] [place] [address], [address] [place] [address], [address] [place] [address], Project Estimator: Clay Sparrow MD [facility] Collection Date/Time: [facility] Results Received Date/Time: [facility] Reported Date/Time: Performed By: #### 3 4F #### [facility] Default [address] [place] [address] OCCULT BLOOD Negative Normal NEGATIVE [facility] Nnp Comment on above: Order Comment: [facility] Testing performed at: [employer], [email or web address] [facility], [address] [place] [address], [address] [place] [address], [address] [place] [address], Project Estimator: Clay Sparrow MD [facility] Collection Date/Time: [facility] Results Received Date/Time: [facility] Reported Date/Time: Performed By: #### 3 4F #### [facility] Default [address] [place] [address] pH (U) 6.5 [pH] Normal 5.0-8.0 [facility] Nnp Comment on above: Order Comment: [facility] performed at: [employer], [email or web address] [facility], [address] [place] [address], [address] [place] [address], [address] [place] [address], Project Estimator: Clay Sparrow MD [facility] Collection Date/Time: [facility] Results Received Date/Time: [facility] Reported Date/Time: Performed By: #### 3 4F #### [facility] Default [address] [place] [address] Protein Ql (U) Negative Normal NEGATIVE [facility] Specialist Comment on above: Order Comment: [facility] Testing performed at: [employer], [email or web address] [facility], [address] [place] [address], [address] [place] [address], [address] [place] [address], Project Estimator: Clay Sparrow MD [facility] Collection Date/Time: [facility] Results Received Date/Time: [facility] Reported Date/Time: Performed By: #### 3 4F #### [facility] Default [address] [place] [address] RBC NONE SEEN Normal < OR = 2 [facility] Nnp Comment on above: Order Comment: [facility] Testing performed at: [employer], [email or web address] [facility], [address] [place] [address], [address] [place] [address], [address] [place] [address], Project Estimator: Clay Sparrow MD [facility] Collection Date/Time: [facility] Results Received Date/Time: [facility] Reported Date/Time: Performed By: #### 3 4F #### [facility] Default [address] [place] [address] Specific gravity (U) [Rel density] 1.025 Normal 1.001-1.035 [facility] Nnp Comment on above: Order Comment: [facility] Testing performed at: [employer], [email or web address] [facility], [address] [place] [address], [address] [place] [address], [address] [place] [address], Project Estimator: Clay Sparrow MD [facility] Collection Date/Time: [facility] Results Received Date/Time: [facility] Reported Date/Time: Performed By: #### 3 4F #### [facility] Default [address] [place] [address] SQUAMOUS EPITHELIAL CELLS 0-5 Normal < OR = 5 [facility] Nnp Comment on above: Order Comment: [facility] performed at: QPT, [email or web address] [facility], [address], [address] [place], [address], Project Estimator: Clay Sparrow MD [facility] Collection Date/Time: [facility] Results Received Date/Time: [facility] Reported Date/Time: Performed By: #### 3 4F #### [facility] Default [address] [place] [address] WBC NONE SEEN Normal < OR = 5 [facility] Nnp Comment on above: Order Comment: [facility] Testing performed at: QPT, [email or web address] [facility], [address], [address] [place], [address], Project Estimator: Clay Sparrow MD [facility] Collection Date/Time: [facility] Results Received Date/Time: [facility] Reported Date/Time: Performed By: #### 3 4F #### [facility] Default [address] [place] [address] Vitamin D 25-OHon 04-21-2021 VIT D 25 OH 52 ng/ml Normal >29 [facility] Nnp Comment on above: Result Comment: Ashley min D Status Deficiency <20 ng/mL Insufficiency 20-29 ng/mL Optimal 30-100 ng/mL Possible Toxicity >=150 ng/mL Performed By: #### C BCAD, VITD, LIPD, CMP #### [facility] [address] [place], [place] [id number] XR KNEE GENERAL 4V AP BOTH/P A BOTH/LAT/MERC LTon 12-04-2020 [facility] XR KNEE POST OP 3V AP/LAT/ME RCHANT LTon 04-01-2020 [facility] XR KNEE GENERAL 4V AP BOTH/P A BOTH/LAT/MERC LTon 12-20-2019 [facility] Basic Metabolic Panlon 12-05 Anion gap [Moles/Vol] 8 mmol/L Low 9-18 [facility] Calcium [Mass/Vol] 6.8 mg/dL Low 8.5-10.2 [facility] Chloride [Moles/Vol] 108 mmol/L High 97-105 [facility] CO2 [Moles/Vol] 20 mmol/L Low 22-30 [facility] Creatinine [Mass/Vol] 1.07 mg/dL High 0.58-0.96 [facility] eGFR- Amer. >60 Normal [facility] GFR/1.73 sq M predicted among non-blacks MDRD (S/P/Bld) [Vol rate/Area] 51 . Normal [facility] Comment on above: Result Comment: [...] GFR. Glucose [Mass/Vol] 145 mg/dL High 74-99 [facility] Comment on above: Result Comment: The [place] [employer] (ADA) provides guidance for cutoff [...] Standards of Medical Care in Diabetes 2016, [place] [employer]. Diabetes Care. 2016.39(Suppl 1). Potassium [Moles/Vol] 3.3 mmol/L Low 3.7-5.1 [facility] Sodium [Moles/Vol] 136 mmol/L Normal 136-144 [facility] Urea nitrogen [Mass/Vol] 21 mg/dL Normal 7-21 [facility] CBCon 12-06-2019 Absolute nRBC <0.01 Normal <0.01 [facility] Erythrocyte distribution width (RBC) [Ratio] 12.5 % Normal 11.5-15.0 [facility] Hematocrit (Bld) [Volume fraction] 30.3 % Low 36.0-46.0 [facility] Hemoglobin (Bld) [Mass/Vol] 9.5 g/dL Low 11.5-15.5 [facility] MCH (RBC) [Entitic mass] 30.6 pG Normal 26.0-34.0 [facility] MCHC (RBC) [Mass/Vol] 31.4 g/dL Normal 30.5-36.0 [facility] MCV (RBC) [Entitic vol] 97.7 fL Normal 80.0-100.0 [facility] Platelet mean volume (Bld) [Entitic vol] 10.2 fL Normal 9.0-12.7 [facility] Plate[facility] (Bld) [#/Vol] 188 10*3/uL Normal 150-400 [facility] RBC (Bld) [#/Vol] 3.10 10*6/uL Low 3.90-5.20 [facility] WBC (Bld) [#/Vol] 9.31 10*3/uL Normal 3.70-11.00 [facility] NURSING PROGon 12-06-2019 NURSING PROG HNO ID: [id number] Author: Tae (Rn) LOAN lAvarenga Service: Nursing Author Type: Registered Nurse Type: Nursing Progress Note Filed: 12/06/2019 4:24 PM Note Text: Nursing Progress Note Patient Name: Gilda Sorto Patient Location: [facility]/ Daily Note: 0745: awake and sitting up [...] note was completed by: Tae Alvarenga RN [facility] PLAN OF CAREon 12-06-2019 PLAN OF CARE HNO ID: [id number] Author: Carlie Beltre (popchips) Service: ? Author Type: ? Type: Plan [...] capsule Commonly known as: MACROBID Carlie Beltre (popchips) PAGER: margarita December 06, 2019 3:10 PM [facility] PROGRESSon 12-06-2019 PROGRESS HNO ID: [id number] Author: Taz Dean Service: Orthopaedic Surgery Author [...] Osteoarthritis of Left Knee Breast Asymmetry Between [place] Breast and Reconstructed Breast S/P Partial Mastectomy, Right History of Breast Cancer Mass of Left Knee Tear of Lateral Meniscus of Left Knee Complex Tear of Lateral Meniscus of Left Knee As Current Injury Medication and Non-Pharmacologic VTE Prophylaxis/Anticoagula nts 12/05/19 1300 pneumatic compression stockings ([place]) 12/05/19 1300 graduated compression stockings ([place]) VTE Prophylaxis: VTE prophylaxis appropriate POST OPERATIVE COMPLICATIONS: Complicated by: uneventful/none SIGNATURE: Taz Dean DO PATIENT NAME: Gilda Sorto DATE: December 06, 2019 TIME: 9:46 AM PAGER/CONTACT #: ANNIE ETX#[phone] [facility] THERAPY NTon 12-06-2019 THERAPY NT HNO ID: [id number] Author: Jessica (Ot) Simon Service: ? Author Type: Occupational Therapist Type: Therapy (PT/OT/Speech/Resp) Filed: 12/06/2019 3:16 PM Note Text: Occupational Therapy Evaluation SERVICE DATE: 12/06/2019 SERVICE TIME: 1423 to 1500 ROOM: [place] [address] Recommended Discharge Disposition: Home Recommended Discharge Disposition [...] of daily living (ADL) Interventions Provided: Evaluation;Self Mcc Management (20138) $ Evaluation-Low (82123) Billed Units: 1 unit Self Mcc Management (66988) Treatment Minutes: 20 1 unit Skilled Intervention(s): [...] relating to: -functional transfers (use of leg tank pumper panelboard to assist surgical leg in/out of bed, [...] of tub or shower seat/bench w/ leg tank pumper panelboard, importance of grab bars and not bathing [...] Walker;Shower Bench;Wheelchair;Elevat ed Toilet Seat;Long Handled Shoe Horn;[employer] Farmer Prior Functional Level: Within Functional Limits Prior [...] December 06, 2019 TIME: 3:10 PM Normal [facility] THERAPY NT HNO ID: [id number] Author: Yadira NavasPtElayne Sher Service: Physical Therapy Author Type: Physical Therapist Type: Therapy (PT/OT/Speech/Resp) Filed: 12/06/2019 3:32 PM Note Text: Physical Therapy Treatment SERVICE DATE: 12/06/2019 SERVICE TIME: 1334 to 1402 ROOM: [place] [address] Recommended Discharge Disposition: Outpatient Physical Therapy Anticipated [...] (ADL);Muscle Weakness (generalized) Interventions Provided: Therapeutic Exercise (33602);Gait Training (31601) Therapeutic Exercise (09998) Treatment Minutes: 13 1 unit Skilled Intervention(s): Instruction in therapeutic exercise Verbal and tactile cuing provided for supine HEP Education in importance of changing positions slowly, staying active Gait Training (35507) Treatment Minutes: 15 2 units Skilled Intervention(s): [...] Walker;Shower Bench;Wheelchair;Elevat ed Toilet Seat;Long Handled Shoe Horn;[employer] Farmer Prior Functional Level: Within Functional Limits Prior [...] DATE: December 06, 2019 TIME: 2:35 PM [facility] THERAPY NT HNO ID: [id number] Author: Yadira (PtElayne Sher Service: Physical Therapy Author Type: Physical Therapist Type: Therapy (PT/OT/Speech/Resp) Filed: 12/06/2019 12:23 PM Note Text: Physical Therapy Treatment SERVICE DATE: 12/06/2019 SERVICE TIME: 1010 to 1050 ROOM: [place] [address] Recommended Discharge Disposition: Outpatient Physical Therapy Anticipated [...] ess on feet Interventions Provided: Therapeutic Exercise (16983);Gait Training (65204) Therapeutic Exercise (20389) Treatment Minutes: 15 1 unit Skilled Intervention(s): Instruction in therapeutic exercise Verbal and tactile cuing provided for proper HEP completion Education in importance of mobility (see flow sheet for exercises completed) Gait Training (02837) Treatment Minutes: 25 2 units Skilled Intervention(s): [...] DATE: December 06, 2019 TIME: 11:10 AM [facility] ANES POSTPROC EVALon 020 ANES POSTPROC EVAL HNO ID: [id number] Author: Bayron Everett Service: ? Author Type: [...] December 05, 2019 TIME: 1:23 PM CSN: [id number] [facility] ANES PRE-OPon 12-05-2019 ANES PRE-OP HNO ID: [id number] Author: Bayron Soloriojitendra Service: ? Author Type: [...] December 05, 2019 TIME: 7:11 AM CSN: [id number] [facility] BRIEF OP NOTon 12-05-2019 BRIEF OP NOT HNO ID: [id number] Author: Taz Dean Service: Orthopaedic Surgery Author Type: Physician Type: Brief Op Note Filed: 12/05/2019 10:38 AM Note Text: TOTAL KNEE ARTHROPLASTY BRIEF OPERATIVE / PROCEDURE NOTE LOG ID: [id number] Surgery/Procedure Date: 12/05/2019 Incision/Procedure Start Time: 8:08 AM Incision Close/Procedure End Time: 10:34 AM Surgeon(s)/Proceduralis t(s) and Maintenance Parts Technician(s): Surgeon(s) and Role: * Taz Dean - Primary Physician Maintenance Parts Technician: Gavin Ballard Procedure(s): Procedure(s) (LRB): ARTHROPLASTY REPLACE JOINT TOTAL KNEE (Left) Anesthesia: Monitored Anesthesia Care with spinal Peripheral Block Type: Saphenous/Adductor Approach: Median parapatellar Findings: Advanced DJD left knee Estimated Blood Loss: 75 mls Specimens: None Complications: None Implant: Implant Name Type Inv. Item Serial No. Restorative Coordinator Lot No. [id number] No. Used Action INSERT PERSONA 6-9 C-D POLYETHYLENE 10MM ARTICULAR POSTERIOR STABILIZED - [id number] Joint - Knee INSERT PERSONA 6-9 C-D POLYETHYLENE 10MM ARTICULAR POSTERIOR STABILIZED [employer] [id number] Left 1 Implanted COMPONENT 29MM ALL POLY PATELLAR PSN - [id number] Joint - Knee COMPONENT 29MM ALL POLY PATELLAR PSN [employer] [id number] Left 1 Implanted COMPONENT PERSONA 6 NARROW COCR FEMORAL CEMENTED POSTERIOR STABILIZE KNEE - [id number] Joint - Knee COMPONENT PERSONA 6 NARROW COCR FEMORAL CEMENTED POSTERIOR STABILIZE KNEE [employer] [id number] Left 1 Implanted BASEPLATE PERSONA 5D D TIVANIUM TIBIAL CEMENTED STEM KNEE LEFT - [id number] Joint BASEPLATE PERSONA 5D D TIVANIUM TIBIAL CEMENTED STEM KNEE LEFT [employer] [id number] Left 1 Implanted CEMENT SIMPLEX P BONE RADIOPAQUE FULL DOSE STERILE - [id number] Cement / Putty CEMENT SIMPLEX P BONE RADIOPAQUE FULL DOSE STERILE STRY/[employer] [id number] Left 1 Implanted Bearing Surface: Fixed Fixation: Cemented SSI Risk Factors: NA Constraint: Posterior Stabilized Other: None Pre-Op/Pre-Procedure Diagnosis: DJD left knee Post-Op/Post-Procedure Diagnosis: DJD left knee Weight Bearing Status: Weight Bearing As Tolerated SIGNATURE: Taz Dean DO PATIENT NAME: Gilda Sorto DATE: December 05, 2019 TIME: 10:36 AM PAGER/CONTACT #: [facility] CASE MGT INIT [facility] 2019 CASE MGT INIT [facility] HNO ID: [id number] Author: Yanna (Rn) LOAN Barriga Service: Care Management Author Type: Registered Nurse Type: Care Mgt Initial Assessment Filed: 12/05/2019 1:53 PM Note Text: CARE MANAGEMENT: ASSESSMENT AND DISCHARGE PLAN SERVICE DATE: December 05, 2019 SERVICE TIME: 1:52 PM PRIMARY CARE PHYSICIAN: Gonsalo Hubbard MD ADMISSION STATUS: Ambulatory Surgery MEDICAL: [employer] MEDICARE 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 Last discharge within 30 days: No Advance Directive: Current Advance Directive: Health Care Power of Bead Supervisor;Living Will In Chart: Yes Up To Date [...] Sorto Address: [address] [place] [address] [facility] Mobile Relation: Spouse Supportive Patient Contact:: Yes [...] Completely I feel financially burdened by my [id number] expenses for my prescription medication:: 0 - Disagree Completely Risk Score: 0 Patient is categorized as: Low risk < 2 Are you interested in bedside delivery of your medications? Yes Is Patient Psychosocially Complex?: No ASSESSMENT AND PLAN: Medical Needs: Medical Needs: None Psychosocial Needs: Psychosocial Needs: None FREEDOM OF CHOICE EXPLAINED: [place] of Choice Given: No Reason Not Given: No placements necessary POTENTIAL TRANSITION PLANS Outpatient Therapy Patient from home with spouse. Has equipment. Has OP PT on 12/09 at 11:45 in [place]. SIGNATURE: Yanna Barriga RN PATIENT NAME: Gilda Sorto DATE: December 05, 2019 TIME: 1:52 PM PAGER/CONTACT #: [phone] [facility] NURSING PROGon 12-05-2019 NURSING PROG HNO ID: [id number] Author: Ekaterina NavasRn) LOAN Erickson Service: Nursing Author Type: Registered Nurse Type: Nursing Progress Note Filed: 12/05/2019 12:58 PM Note Text: Nursing Progress Note Patient Name: Gilda Sorto Patient Location: AV Surgery/AV Surgery Daily Note: Patient arrived in room 510 via bed transport. Patient alert and oriented x 3. This note was completed by: Ekaterina Erickson RN [facility] OPERATIVE NOon 12-05-2019 OPERATIVE NO HNO ID: [id number] Author: Taz Dean Service: Orthopaedic Surgery Author Type: Physician Type: Operative Report Filed: 12/05/2019 8:42 PM Note Text: [facility] OPERATIVE REPORT PATIENT NAME: Glida Sorto AGE: [age] year old SEX: female LOG ID: [id number] SURGERY DATE: 12/05/2019 SURGEON: Taz Dean D.O. PRINCIPAL NETWORK ARCHITECT: Gavin Ballard PA-C, her role in the [...] position, the tibia was prepared using the SEPMAG Technologiesstack reamer and keel?punch.? A trial tibial tray [...] patellar bone calipers?were? used?to measure the patient's [place] patella and guide the amount of?bone resection needed.? Following this, the articular side of the patella was? resected?with a?bone saw, taking the appropriate amount of bone from the patella.??The? patellar sizing guide was then positioned?and?the patient?matched a 29-mm patellar component.? The appropriate size patellar guide was?positioned and the 3 pilot captain holes were drilled. The 29-mm trial patellar [...] followed by interrupted #1?Vicryl suture in a [id number] alternating fashion, sealing off the remaining portions [...] time.? Patient was then transferred to a [facility], and taken to?the recovery room in stable condition having?tolerated the?procedure well.?? Sponge and needle counts were correct.? The case was? clean and? elective.? There were no complications. Incision Start: 8:08 AM Incision Stop: 10:34 AM SIGNATURE: Taz Dean DO DATE: December 05, 2019 TIME: 8:33 PM [facility] PT ED 12-05-2019 PT ED HNO ID: [id number] Author: Jazz (Rn) LOAN Hilario Service: ? Author Type: Registered Nurse Type: Patient Education Filed: 12/05/2019 6:55 AM Note Text: PRE OP LEARNING ASSESSMENT PROCEDURE/SURGERY: left TKR READINESS TO LEARN COGNITIVE ABILITY: Alert and oriented MOTIVATION TO LEARN: Eager FAMILY SUPPORT: None - Unavailable/disinterest ed PATIENT LEARNS BEST BY: Individual Instruction FACTORS AFFECTING LEARNING: None PHYSICAL LIMITATIONS AFFECTING LEARNING: None [facility] THERAPY NTon 12-05-2019 THERAPY NT HNO ID: [id number] Author: Yadira NavasPtElayne Sher Service: Physical Therapy Author Type: Physical Therapist Type: Therapy (PT/OT/Speech/Resp) Filed: 12/05/2019 5:45 PM Note Text: Physical Therapy Evaluation SERVICE DATE: 12/05/2019 SERVICE TIME: to 1703 ROOM: [place] [address] Recommended Discharge Disposition: Outpatient Physical Therapy Anticipated [...] on feet;Difficulty walking-musculoskeletal Interventions Provided: Evaluation;Gait Training (99253);Therapeutic Exercise (80101) $ Evaluation-Low (43604) Billed Units: 1 unit Therapeutic Exercise (29641) Treatment Minutes: 10 1 unit Skilled Intervention(s): Instruction in therapeutic exercise Verbal and tactile cuing provided for proper HEP completion Education in knee precautions and pain science Gait Training (46548) Treatment Minutes: 13 1 unit Skilled Intervention(s): [...] Toilet/Commode Gait Stairs Curb Step Car Transfer [facility]: 5: Standing (1 or more minutes) I reviewed and agree with the documentation corresponding to this therapy visit. SIGNATURE: Yadira Sher, MARLON DATE: December 05, 2019 TIME: 5:45 PM Please see discipline specific clinical documentation flowsheet for complete details for this therapy evaluation/treatment. SIGNATURE: Raymon Owens, SPT PATIENT NAME: Gilda Sorto DATE: December 05, 2019 TIME: 5:30 PM [facility] Type and Screenon 12-05-2019 ABO/RH(D) Positive [facility] CNPNon 12-04-2019 CNPN Telephone (AVPRAD) NOREENGILDA Melissa ([id number]) 1950 F Date Time Provider Department 12/04/19 [...] left knee [M17.12] 10/13/2017 Breast asymmetry between [place] breast and jennifer*12/02/2017 More... S/P partial mastectomy, right [Z90.11] 12/02/2017 More... History of breast cancer [Z85.3] 12/02/2017 More... Mass of left knee [R22.42] 01/05/2018 Tear of lateral meniscus of left knee [S83.282A]01/06/2018 More... Complex tear of lateral meniscus of left knee a*01/06/2018 Encounter Status:Closed by GAVIN BALLARD Felipe on 12/04/19 [facility] NURSING PROGon 11-26-2019 NURSING PROG HNO ID: [id number] Author: Stephanie Cuevas (Rn) Manny RN Service: [...] Bryant RN November 30, 2019 10:58 AM [facility] HOSPon 11-01-2019 HOSP Patient:Gilda Sorto MRN: [...] of left knee [M17.12] Breast asymmetry between [place] breast and reconstructed breast [N65.1] S/P partial [...] virus test. Gavin Ballard PA-C Progress Notes ([facility] ADULT): Ashleigh Alex APRN.SCRIPT WRITER 11/28/2019 8:45 AM Signed Please call patient and advise that on pre-op labs UA showed leukocytes and urine culture revealed possible contaimination Due to surgery being 12/04- will treat with low dose antibiotics for possible infection Rx for Macrobid sent to pharmacy. Advise to start AMBER and take BID for 7 days Thank you Ashleigh Alex APRN.[facility] Na Beltre LPN 11/28/2019 8:56 AM Signed Patient aware. Pharmacy verified. 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 Na Beltre LPN Normal [facility] Vital Signs Date Time Vital Sign Value Performing Clinician Dexter redman 06-30-2023 09:46-0500 Body mass index (BMI) [Ratio] 35.07 kg/m2 Samia Warren JIG AND FIXTURE MAKER Work Phone: [facility] 06-30-2023 09:46-0500 Body temperature 97.11 [degF] Samia Warren J[employer] AND FIXTURE MAKER Work Phone: [facility] 06-30-2023 09:46-0500 Body weight 89.81 kg Samia Warren [employer] AND FIXT[employer] MAKER Work Phone: [facility] 06-30-2023 09:46-0500 Diastolic blood pressure 80 mm[Hg] Samia Warren J[employer] AND FIXTURE MAKER Work Phone: [facility] 06-30-2023 09:46-0500 Heart rate 96 /min Samia Warren [employer] AND [employer]TURE MAKER Work Phone: [facility] 06-30-2023 09:46-0500 SaO2% (BldA) [Mass fraction] 97 % Samia Warren [employer] AND FIXTURE MAKER Work Phone: [facility] 06-30-2023 09:46-0500 Systolic blood pressure 128 mm[Hg] Samia Warren [employer] AND FIXTURE MAKER Work Phone: [facility] 04-16-2022 11:52-0500 Body temperature 98.1 [degF] Sharon Saldivar ELECTRONIC WARFARE TECHNICIAN.SCRIPT WRITER Work Phone: [facility] 04-16-2022 11:52-0500 Diastolic blood pressure 60 mm[Hg] Sharon Villanuevaerson ELECTRONIC WARFARE TECHNICIAN.SCRIPT WRITER Work Phone: [facility] 04-16-2022 11:52-0500 Heart rate 85 /min Sharon Saldivar ELECTRONIC WARFARE TECHNICIAN.SCRIPT WRITER Work Phone: [facility] 04-16-2022 11:52-0500 Respiratory rate 20 /min Sharon Saldivar ELECTRONIC WARFARE TECHNICIAN.SCRIPT WRITER Work Phone: [facility] 04-16-2022 11:52-0500 SaO2% (BldA) [Mass fraction] 100 % Sharon Saldivar ELECTRONIC WARFARE TECHNICIAN.SCRIPT WRITER Work Phone: [facility] 04-16-2022 11:52-0500 Systolic blood pressure 117 mm[Hg] Sharon Saldivar ELECTRONIC WARFARE TECHNICIAN.SCRIPT WRITER Work Phone: [facility] Encounters Encounter Date Encounter Type Care Provider Facility Start: 01-06-2024 End: 01-06-2024 ambulatory GRAZYNA R RISALITI Not Available Start: 12-28-2023 End: 12-28-2023 ambulatory GRAZYNA R RISALITI Not Available Start: 09-26-2023 End: 09-26-2023 ambulatory GONSALO HUBBARD Not Available Start: 06-30-2023 End: 06-30-2023 Office outpatient visit 15 minutes Samia Warren J[employer] AND FIXTURE MAKER Work Phone: [facility] Comment on above: Viral upper respirat ory tract infection (Primary Dx); Cough, unspecified type; Insomnia, unspecified type; Morbid obesity (CMS/HCC); History of breast cancer Start: 06-30-2023 End: 06-30-2023 ambulatory GONSALO HUBBARD Not Available Start: 04-26-2023 End: 04-26-2023 ambulatory GONSALO HUBBARD Not Available Start: 04-19-2023 End: 04-19-2023 ambulatory Gonsalo Hubbard Facility:[facility] Start: 04-12-2023 End: 04-12-2023 ambulatory KYALA ESPERANZA Facility:[facility] Start: 04-12-2023 End: 04-12-2023 Subsequent hospital visit by physician Xr [facility] Work Phone: Radiology Comment on above: Pain [R52] Start: 05-04-2022 ambulatory JALEN SMITHMICHELLEVera Facility :UNKNOWN Start: 04-16-2022 End: 04-16-2022 ambulatory GONSALO HUBBARD Facility:[facility] Start: 04-16-2022 Documentation procedure Mammog samantha Coordinator [facility] Start: 04-16-2022 Letter encounter Mammography Coordinator [facility] Department Start: 04-16-2022 End: 04-16-2022 ambulatory Sharon Saldivar APRN.CNP Work Phone: Hematology/Oncology Comment on above: Encounter for screen ing mammogram for breast cancer (Primary Dx); Stage 1 breast cancer, ER-, left (HCC) Start: 04-16-2022 End: 04-16-2022 Patient encounter procedure Sharon Saldivar APRN.CNP Work Phone: [facility] Start: 04-16-2022 End: 04-16-2022 [...] Radiology Start: 11-20-2021 Orders Only Sharon castelan ELECTRONIC WARFARE TECHNICIAN.SCRIPT WRITER Work Phone: Hematology/Oncology Comment on above: Encounter [...] 12-04-2020 Subsequent hospital visit by physician Xr [facility] [employer] [facility] General Radiology Comment on above: S/P total knee arthr oplasty, left [Z96.652] Start: 04-01-2020 End: 04-01-2020 Subsequent hospital visit by physician Xr [facility] Rej Work Phone: Radiology Comment on above: post op Start: 12-20-2019 End: 12-20-2019 Subsequent hospital visit by physician Xr [facility] General Radiology Comment on above: Primary osteoarthrit is of left knee [M17.12] Procedures Date Procedure Procedure Detail Performing Clinician Start: 06-30-2023 STATUS COVID-19/FLU Obie tlin E Chadd-Maria Esther JIG AND FIXTURE MAKER Work Phone: Start: 04-12-2023 Radex hand minimum 3 views Kayla Mata MD Work Phone: Start: 04-16-2022 JAKE SCREENING W JOE Saldivar ELECTRONIC WARFARE TECHNICIAN.SCRIPT WRITER Work Phone: Start: 04-16-2022 Mammography Sharon Hernandez ELECTRONIC WARFARE TECHNICIAN.SCRIPT WRITER Work Phone: Start: 11-25-2021 Ct angio abd&plvis [...] of mastectomy S/P part ial mastectomy, right aPco Ramirez MD Work Phone: Start: 09-06-2012 Lipid 1996 panel - S compa or Plasma [facility] Plan of Treatment Date Care Activity Detail Author Start: 11-05-2030 Screening for malign ant neoplasm of colon [facility] Start: 12-09-2024 Diabetes Screening Diabetes Screenin g [facility] Start: 04-26-2024 Medicare Annual Well ness (AWV) Medicare Annual Wellness (AWV) [facility] Start: 04-24-2024 End: 04-24-2024 Patient encounter procedure 04/24/2024 1:00 PM EST Office Visit [facility] [address] [place] [address] Gonsalo Hubbard MD [address] [place] [address] [facility] Start: 01-15-2024 Covid-19 Vaccine (6 - 2023-24 season) Covid-19 Vaccine ( season) [facility] Start: 01-15-2024 Influenza vaccination Influenza Vacc ine (#1) [facility] Start: 11-25-2023 DIABETES SCREEN DIABETES SCREEN [facility] Start: 11-25-2023 Diabetes Screening Diabetes Screenin g [facility] Start: 05-16-2023 Advance Directive Discussion Advance Directive Discussion [facility] Start: 04-16-2023 BP CONTROLLED (<130/80) BP CONTROLLE D (<130/80) [facility] Start: 04-16-2023 End: 05-16-2023 JAKE SCREENING JAKE SCREENING Radiology Routine Encounter for screening mammogram for breast cancer Expected: 04/16/2023, Expires: 05/16/2023 [facility] Work Phone: Comment on above: Expected: 04/16/2023 , Expires: 05/16/2023 Start: 04-16-2023 Mammography [facility] Start: 04-16-2023 Screening for malign ant neoplasm of breast Mammogram Screening [facility] Start: 01-14-2023 Covid-19 Vaccine ( season) Covid-19 Vaccine ( season) [facility] Start: 01-14-2023 Influenza vaccination Influenza Vacc ine (#1) [facility] Start: 05-16-2022 Advance Directive Discussion Advance Directive Discussion [facility] Start: 05-16-2022 Depression Assessment Depression Ass essment [facility] Start: 01-14-2022 Influenza vaccination INFLUENZA (#1) [facility] Start: 11-24-2021 Mammography MAMMOGRAM [facility] Start: 11-21-2021 Adult depression screening assessment DEPRESSION SCREENING [facility] Start: 09-23-2021 End: 11-23-2021 CREATININE BLD CREATININE BLD Lab Routine Renal artery aneurysm (HCC) Expected: 09/23/2021, Expires: 11/23/2021 [facility] Work Phone: Comment on above: Expected: 09/23/2021 , Expires: 11/23/2021 Start: 08-08-2021 COVID-19 VACCINE (3 - Booster for Moderna series) COVID-19 VACCINE (3 - Booster for Moderna series) [facility] Start: 07-11-2021 COVID-19 VACCINE (4 - Booster for Moderna series) COVID-19 VACCINE (4 - Booster for Moderna series) [facility] Start: 05-16-2021 ADVANCE DIRECTIVE DISCUSSION ADVANCE DIRECTIVE DISCUSSION [facility] Start: 05-16-2021 DEPRESSION ASSESSMENT DEPRESSION ASS ESSMENT [facility] Start: 09-06-2017 Lipid 1996 panel - S compa or Plasma Lipid Screening [facility] Start: 09-06-2017 Lipid panel Lipid Screening [facility] Start: 09-06-2017 LIPID SCREEN LIPID SCREEN [facility] Start: 2015 BONE DENSITY BONE DENSITY [facility] Start: 2015 Bone Density Screening Bone Density Screening [facility] Start: 2015 PNEUMOCOCCAL: 65+ (1 - PCV) PNEUMOCOCCAL: 65+ (1 - PCV) [facility] Start: 2015 PNEUMOVAX AGE 65 AND OVER WITH 5YR LOOKBACK (#1) PNEUMOVAX AGE 65 AND OVER WITH 5YR LOOKBACK (#1) [facility] Start: 2015 Screening for osteoporosis Bone Density Screening [facility] Start: 11-08-2014 Urine microalbumin profile DTaP,Tdap,Td Vaccine (1 - Tdap) [facility] Start: 2010 RSV Vaccine (1 - 1-d ose 60+ series) RSV Vaccine (1 - 1-dose 60+ series) [facility] Start: 2000 SHINGRIX VACCINE (1 of 2) SHINGRIX VACCINE (1 of 2) [facility] Start: 1995 COLOGUARD (FIT-DNA) COLOGUARD (FIT-D NA) [facility] Start: 1995 Colonoscopy COLONOSCOPY [facility] Start: 1995 COLORECTAL CANCER SCREENING COLORECTAL CANCER SCREENING [facility] Start: [address] COLONOGRAPHY [facility] Start: 1995 FECAL OCCULT BLOOD FECAL OCCULT BLOO D [facility] Start: 1995 Screening for malign ant neoplasm of colon [facility] Start: 1995 SIGMOIDOSCOPY SIGMOIDOSCOPY [facility] Start: 1969 Urine microalbumin profile DTAP,TDAP,TD (1 - Tdap) [facility] Start: 1968 ANNUAL PCP TEAM CARD DOFFER LOIS DISEASE VISIT ANNUAL PCP TEAM CHRONIC DISEASE VISIT [facility] Start: 1968 Anxiety Screening Anxiety Screening [facility] Start: 1968 BP CONTROLLED (<130/80) BP CONTROLLE D (<130/80) [facility] Start: 1968 Depression Screening Depression Scre ening [facility] Start: 1968 HEPATITIS C SCREENING HEPATITIS C [facility] Start: 1968 Hepatitis C screening Hepatitis C [facility] Start: 1950 Screening for malign ant neoplasm of colon [facility] End: 10-23-2022 Ct angio abd&plvis cntrst mtrl w/wo cntrst img CTA ABD/PEL WO/W IVCON Radiology Routine Renal artery aneurysm (HCC) 1 Occurrences starting 09/23/2021 until 10/23/2022 [facility] Work Phone: Comment on above: 1 Occurrences starti ng 09/23/2021 until 10/23/2022 End: 12-20-2022 Screening mammography bi 2-view breast inc cad JAKE SCREENING Radiology Routine Encounter for screening mammogram for breast cancer 1 Occurrences starting 11/20/2021 until 12/20/2022 [facility] Work Phone: Comment on above: 1 Occurrences starti ng 11/20/2021 until 12/20/2022 [facility] Immunizations Immunization Date Immunization Notes Care Provider Sugey hogue 03-19-2023 Influenza, Seasonal, Quadrivalent, Adjuvanted Samia Warren J[employer] AND FIXTURE MAKER Work Phone: [facility] 03-19-2023 influenza virus vaccine, unspecified formulation Xr [place] Work Phone: [facility] 03-30-2022 SARS-COV-2 (COVID-19 ) vaccine, mRNA, spike protein, LNP, bivalent, PF Samia Warren [employer] AND FIXTURE MAKER Work Phone: [facility] 03-12-2022 Influenza, High-dose Seasonal, Quadrivalent, Preservative Free Samia Warren J[employer] AND FIXTURE MAKER Work Phone: [facility] 03-12-2022 influenza virus vaccine, unspecified formulation Xr [facility] 02-12-2021 Influenza, High-dose Seasonal, Quadrivalent, Preservative Free Samia Chadd-Maria Esther JIG AND FIXTURE MAKER Work Phone: [facility] 07-21-2020 COVID-19 vaccine, fu ll dose (MODERNA) Ct (I-Stat) Work Phone: [facility] 06-23-2020 COVID-19 vaccine, fu ll dose (MODERNA) Ct (I-Stat) Work Phone: [facility] 01-17-2020 influenza, high dose seasonal, preservative-free Samia Chadd-Maria Esther J[employer] AND FIXTURE MAKER Work Phone: [facility] 12-24-2019 zoster vaccine recombinant Samia Chadd-Maria Esther [employer] MAKER Work Phone: [facility] 10-16-2019 zoster vaccine recombinant Samia Chadd-Maria Esther J[employer] AND [employer]TURE MAKER Work Phone: [facility] 03-19-2019 pneumococcal polysaccharide vaccine, 23 valent Samia Chadd-Maria Esther J[employer] AND FIXTURE MAKER Work Phone: [facility] 03-01-2017 pneumococcal polysaccharide vaccine, 23 valent Samia Chadd-Maria Esther J[employer] AND FIXTURE MAKER Work Phone: [facility] 02-13-2017 influenza, injectabl e, quadrivalent, preservative free Samia Chadd-Maria Esther JIG AND FIXTURE MAKER Work Phone: [facility] 12-06-2016 hepatitis A and hepatitis B vaccine Samia Chadd-Maria Esther J[employer] AND FIXTURE MAKER Work Phone: [facility] 05-28-2016 hepatitis A and hepatitis B vaccine Samia Chadd-Maria Esther J[employer] AND FIXTURE MAKER Work Phone: [facility] 04-27-2016 hepatitis A and hepatitis B vaccine Samia Chadd-Maria Esther J[employer] AND FIXTURE MAKER Work Phone: [facility] 04-27-2016 typhoid capsular polysaccharide vaccine Samia Chadd-Maria Esther J[employer] AND FIXTURE MAKER Work Phone: [facility] 03-24-2015 pneumococcal conjuga te vaccine, 13 valent Samia Warren J[employer] AND FIXTURE MAKER Work Phone: [facility] 03-20-2015 influenza, injectabl e, quadrivalent, preservative free Samia Warren JIG AND FIXTURE MAKER Work Phone: [facility] 11-07-2014 tetanus and diphther ia toxoids, adsorbed, preservative free, for adult use (2 Lf of tetanus toxoid and 2 Lf of diphtheria toxoid) Samia Warren J[employer] AND FIXTURE MAKER Work Phone: [facility] 01-08-2013 zoster vaccine, live Samia Warren [employer] AND FIXTURE MAKER Work Phone: [facility] Payers Date Payer Category Payer Self-pay 2021 Medicare AETNA MEDICARE A ETNA MEDICARE PPO [id number] 2021-Present [phone] [address] [place] [address] O [id number] 2021 Private Health Insurance 101 [id number] 2019 Medicare AETNA MEDICARE A ETNA MEDICARE PPO [id number] 2019-Present [phone] [address] [place] [address] PPO [id number] 2019 Medicare [id number] 1950 Unknown [id number] 93 1950 Unknown [id number] 1950 Unknown [id number] 93 1950 Unknown [id number] 93 1950 Unknown [id number] 93 1950 Unknown [id number] 259 1950 Unknown [id number] 259 1950 Unknown [id number] 259 1950 Unknown [id number] 259 1950 Unknown [id number] 259 Unknown [id number] 31 Social History Date Type Detail Facility Start: 05-01-2012 End: 04-12-2023 Tobacco smoking status NHIS Never smoked tobacco [facility] Start: 11-24-2020 End: 04-12-2023 Alcohol intake Current drinker of alcohol (finding) [facility] Start: 11-26-2019 End: 12-05-2019 History SDOH Alcohol Frequency 5 [facility] Start: 11-26-2019 End: 12-05-2019 History SDOH Alcohol Std Drinks 1 [facility] Start: 11-26-2019 History SDOH Alcohol Comment A GLASS OF WINE ALMOST EVERY NIGHT BEFORE BED [facility] Start: 12-05-2019 History SDOH Transport Med 2 [facility] Start: 1950 Sex Assigned At Not on file [facility] Start: 09-12-2021 End: 09-22-2021 Exposure to SARS-CoV-2 (event) Unable to assess [facility] Start: 11-20-2019 End: 04-16-2022 Exposure to SARS-CoV-2 (event) Not sure [facility] Start: 05-01-2012 End: 04-12-2023 Tobacco use and exposure Smokeless tobacco non-user [facility] Start: 11-26-2019 End: 04-12-2023 History of Social function [facility] Work Phone: Start: 11-26-2019 End: 04-12-2023 Alcohol Use Disorder Identification Test - Consumption [AUDIT-C] [facility] Work Phone: How often to you hav e a drink containing alcohol? 4 or more times a week [facility] Work Phone: How many standard dr inks containing alcohol do you have on a typical day? 1 or 2 [facility] Work Phone: How often do you hav e 6 or more drinks on 1 occasion? Never [facility] Work Phone: How hard is it for y ou to pay for the very basics like food, housing, medical care, and heating Not hard at all [facility] (I/We) worried kev (my/our) food would run out before (I/we) got money to buy more. Never true [facility] Start: 06-30-2023 Alcohol intake Ex-drinker (finding) [facility] Start: 01-15-2023 Alcohol Comment caffeine: 1-2 cups per day of coffee [facility] Start: 1950 Sex Assigned At Female [facility] Start: 12-07-2022 Gender identity Identifies as female gender (finding) [facility] Medical Equipment Procedure Code Equipment Code Equipment Origin al Text Equipment Identifier Dates Cement Simplex P Bone Radiopaque Full Dose Sterile - [id number] Start: 12-05-2019 [place] Cv 6x6in Thk1.65mm Ptfe - [id number] Start: 09-12-2012 Insert Persona 6 -9 C-D Polyethylene 10mm Articular Posterior Stabilized - [id number] Start: 12-05-2019 Component 29mm A ll Poly Patellar Psn - [id number] Start: 12-05-2019 Component Person a 6 Narrow Cocr Femoral Cemented Posterior Stabilize Knee - [id number] Start: 12-05-2019 Baseplate Person a 5d D Tivanium Tibial Cemented Stem Knee Left - [id number] Start: 12-05-2019 Clinical Notes 12-20-2019 to 06-30-2023 [...] 12/02/2017 Added automatically from request for surgery [id number] Tear of lateral meniscus of knee 01/06/2018 Added automatically from request for surgery [id number] Tonsillitis REVIEW OF SYMPTOMS: Review of Systems [...] follow-ups on file. documented in this encounter [facility] 04-12-2023 Note HNO ID: [id number] Author: Kayla Mata MD Service: ? Author Type: Physician Type: Progress Notes Filed: 04/12/2023 4:51 PM Note Text: PLASTIC SURGERY DEPARTMENT [facility] Hand Surgery Note [x] New [...] What........... Reason:........... Upp (more content not included)... [facility] 04-16-2022 Note HNO ID: [id number] Author: Sharon Saldivar APRN.SCRIPT WRITER Service: ? Author Type: Nurse Practitioner Type: [...] which included preparing to see the patient, [id number] patient care, completing clinical documentation, performing a medically appropriate examination, counseling and educating the patient/family/caregiver, ordering medications, tests, or procedures, communicating with other HCPs (not separately reported), independently interpreting results (not separately reported), communicating results to the patient/family/caregiver, and care coordination (not separately reported). Sharon Saldivar APRN.[facility] 04-16-2022 Note HNO ID: [id number] Author: RT Mario(R) Service: ? Author Type: [...] RT Mario(R) April 16, 2022 11:39 AM [facility] 04-16-2022 History of Present illness [...] which included preparing to see the patient, [id number] patient care, completing clinical documentation, performing a medically appropriate examination, counseling and educating the patient/family/caregiver, ordering medications, tests, or procedures, communicating with other HCPs (not separately reported), independently interpreting results (not separately reported), communicating results to the patient/family/caregiver, and care coordination (not separately reported). Sharon Saldivar APRN.CNP documented in this encounter [facility] 04-16-2022 Nurse Note Additional intake questions: Has the patient had fever, nausea, vomiting, diarrhea, constipation, fatigue for > 1 week? No Does the patient have a decreased appetite? No Does patient want to see a Foundation Drill Operator Helper? No (yes to any of above refer patient to schedulers for dietitian appointment) ) Does patient have any new or increased numbness or tingling of extremities? No Is patient interested in fertility information? No Does patient need any prescription refills? No Does patient have an advanced directive in place? Yes, copies are in [facility] documented in this encounter [facility] 04-16-2022 Miscellaneous Notes April 16, 2022 PID: [id number] Gilda Sorto [address] [place] [address] Dear Ms. Sorto, We are pleased to [...] report will be kept on file at [facility] as part of your permanent medical record and are available for your continuing care. Thank you for allowing us to help in meeting your health care needs. Sincerely, Dr. Perez Interpreting Radiologist [facility] (Normal over 40) documented in this encounter [facility] 04-16-2022 History of Present illness Narrative Radiology [...] 2022 11:39 AM documented in this encounter [facility] 11-25-2021 History of Present illness Narrative Radiology [...] TIME: 12:06 PM documented in this encounter [facility] 09-21-2021 Miscellaneous Notes Mrs Sorto called and she would like to schedule her yearly follow up appointment with DR. James Diana and cell number: [phone] Kind Regards, Nima Wilkinson documented in this encounter [facility] 04-29-2021 Note HISTORY: Bone densit y screening. [...] signed by Gonsalo Alvarez on 04/29/2021 1247 [facility] 04-01-2020 History of Present illness Narrative Radiology [...] 2020 1:04 PM documented in this encounter [facility] 12-20-2019 History of Present illness Narrative Radiology [...] 2019 12:45 PM documented in this encounter [facility] Evaluation note Diagnosis Renal artery aneurysm (HCC)- Primary Aneurysm of renal artery Abdominal aortic aneurysm without rupture (HCC) Abdominal aneurysm without mention of rupture [facility] Diagnosis Encounter for screening mammogram for breast cancer- Primary [facility] Diagnosis Renal artery aneurysm (HCC) Aneurysm of renal artery [facility] Diagnosis Encounter for screening mammogram for breast cancer- Primary Stage 1 breast cancer, ER-, left (HCC) [facility] Diagnosis Encounter for screening mammogram for breast cancer [facility] Diagnosis S/P TKR (total knee replacement), left [facility] Diagnosis Primary osteoarthritis of left knee Primary localized osteoarthrosis, lower leg [facility] S/P total knee arthroplasty, left [facility] Diagnosis Viral upper respiratory tract infection- Primary Acute upper respiratory infections of unspecified site Cough, unspecified type Insomnia, unspecified type Morbid obesity (CMS/HCC) Morbid obesity History of breast cancer Personal history of malignant neoplasm of breast documented in this encounter [facility]* Diagnosis Preop examination- Primary Preoperative examination, unspecified Primary osteoarthritis of left knee Primary localized osteoarthrosis, lower leg Renal artery aneurysm (HCC) Aneurysm of renal artery Essential hypertension Unspecified essential hypertension History of breast cancer Personal history of malignant neoplasm of breast Pain Generalized pain documented in this encounter [facility] for referral (narrative)* Diagnostic Procedure Only (Routine) - Pending Review Specialty Diagnoses / Procedures Referred By Elisha tang Referred To Contact BR IMAGING Diagnoses Encounter for screening mammogram for breast cancer Procedures JAKE SCREENING SCREENING MAMMOGRAPHY BI 2-VIEW BREAST INC Sharon Gallagher APRN.CNP [address] [place] [id number] [facility] [address] [place] [address] Referral ID Status Reason Start Date Expiration Date Visits Requested Visits Authorized [id number] Pending Review Auto-Generat ed Referral 11/20/2021 12/20/2022 1 1 [facility] for referral (narrative)* Diagnostic Procedure Only (Routine) - Pending Review Specialty Diagnoses / Procedures Referred By Elisha tang Referred To Contact BR IMAGING Diagnoses Encounter for screening mammogram for breast cancer Procedures JAKE SCREENING SCREENING MAMMOGRAPHY BI 2-VIEW BREAST INC Sharon Gallagher APRN.CNP [address] [address] [facility] [address] [place] [address] Referral ID Status Reason Start Date Expiration Date Visits Requested Visits Authorized [id number] Pending Review Auto-Generat ed Referral 04/16/2023 05/16/2023 1 [facility] Diagnostic Procedure Only (Routine) - Closed Specialty Diagnoses / Procedures Referred By Contac t Referred To Contact XR IMAGING Diagnoses Pain Procedures XR WRIST GENERAL 3V PA/LAT/OBL BILATERAL RADEX WRIST COMPLETE MINIMUM 3 VIEWS Kayla Mata MD [address] [place] [address] [place] [address] Referral ID Status Reason Start Date Expiration Date V isits Requested Visits Authorized [id number] Closed Auto-Generate d Referral 03/21/2023 04/19/2024 1 1 * Diagnostic Procedure Only (Routine) - Closed Specialty Diagnoses / Procedures Referred By Contac t Referred To Contact XR IMAGING Diagnoses Pain Procedures XR HAND GENERAL 3V PA/LAT/OBL BILATERAL RADEX HAND MINIMUM 3 VIEWS Kayla Mata MD [address] [place] [address] [place] [address] Referral ID Status Reason Start Date Expiration Date V isits Requested Visits Authorized [id number] Closed Auto-Generate d Referral 03/21/2023 04/19/2024 1 1 [facility] Summary Purpose Family History No Family History Records FoundNo Family History Records FoundNo Family History Records FoundNo Family History Records FoundNo Family History Records FoundNo Family History Records Found Advance Directives Documents on File Type Date Recorded Patient Furniture Reproducer Expl anation Advance Directive(s) Advance Directive(s) 12/05/2019 6:09 AM Advance Directive(s) 04/20/2018 10:36 AM Advance Directive(s) 04/12/2018 2:54 PM Advance Directive(s) 09/18/2012 9:11 PM Documents on File Type Date Recorded Patient Furniture Reproducer Expl anation Advance Directive(s) Advance Directive(s) 12/05/2019 6:09 AM Advance Directive(s) 04/20/2018 10:36 AM Advance Directive(s) 04/12/2018 2:54 PM Advance Directive(s) 09/18/2012 9:11 PM Documents on File Type Date Recorded Patient Furniture Reproducer Expl anation Advance Directive(s) 04/12/2018 2:54 PM Advance Directive(s) 09/18/2012 9:11 PM Documents on File Type Date Recorded Patient Furniture 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 Note HNO ID: [id number] Author: Melissa Mccarthy Service: ? Author Type: Nurse Cloth Spreader Screen Printing Type: Anesthesia Procedure Notes Filed: 12/05/2019 7:44 [...] (more content not included)... Note HNO ID: [id number] Author: Melissa Mccarthy Service: ? 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 AUTOMATIC SPINNING LATHE: Jailene Mccarthy Preparation Sterility Preparation: hand hygiene [...] not included)... Procedure Findings Note HNO ID: [id number] Author: Melissa Mccarthy Service: ? Author Type: Nurse Cloth Spreader Screen Printing Type: Anesthesia Procedure Notes Filed: 12/05/2019 7:44 [...] (more content not included)... Note HNO ID: [id number] Author: Melissa Mccarthy Service: ? 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 AUTOMATIC SPINNING LATHE: Jailene NavasHelminthology TeacherElayne Mccarthy Preparation Sterility Preparation: hand hygiene performed [...] CNTRST MTRL W/WO CNTRST Paco Haddad MD [address] [place] [address] Ct Imaging Referral ID Status Reason Start Date Expiration Date Visits Requested Visits Authorized [id number] Authorized Auto-Generat ed Referral 09/23/2021 10/23/2022 1 1 Additional Source Comments INFORMATION SOURCE (unrecogn ized section and content) DATE CREATED AUTHOR 12/08/2019 [facility] DATE CREATED AUTHOR AUTHOR'S ORGANIZ ATION 10/22/2021 [facility] dical Specialist DATE CREATED AUTHOR AUTHOR'S ORGANIZ ATION 05/08/2022 [facility] DATE CREATED AUTHOR AUTHOR'S ORGANIZ ATION 04/14/2023 [facility] DATE CREATED AUTHOR AUTHOR'S ORGANIZ ATION 04/27/2023 [facility] DATE CREATED AUTHOR AUTHOR'S ORGANIZ ATION 01/10/2024 [facility] dical Specialists EPIC Source Comments (unrecognize d section and content) In the event this informatio n is protected by the Federal Confidentiality of Alcohol and Drug Abuse Patient Records regulations: The Federal rules restrict any use of the information to criminally investigate or prosecute any alcohol or drug abuse patient.[facility] the event this information is protected by the Federal Confidentiality of Alcohol and Drug Abuse Patient Records regulations: The Federal rules restrict any use of the information to criminally investigate or prosecute any alcohol or drug abuse patient.[facility] the event this information is protected by the Federal Confidentiality of Alcohol and Drug Abuse Patient Records regulations: The Federal rules restrict any use of the information to criminally investigate or prosecute any alcohol or drug abuse patient.[facility] the event this information is protected by the Federal Confidentiality of Alcohol and Drug Abuse Patient Records regulations: The Federal rules restrict any use of the information to criminally investigate or prosecute any alcohol or drug abuse patient.[facility] the event this information is protected by the Federal Confidentiality of Alcohol and Drug Abuse Patient Records regulations: The Federal rules restrict any use of the information to criminally investigate or prosecute any alcohol or drug abuse patient.[facility] the event this information is protected by the Federal Confidentiality of Alcohol and Drug Abuse Patient Records regulations: The Federal rules restrict any use of the information to criminally investigate or prosecute any alcohol or drug abuse patient.[facility] the event this information is protected by the Federal Confidentiality of Alcohol and Drug Abuse Patient Records regulations: The Federal rules restrict any use of the information to criminally investigate or prosecute any alcohol or drug abuse patient.[facility] the event this information is protected by the Federal Confidentiality of Alcohol and Drug Abuse Patient Records regulations: The Federal rules restrict any use of the information to criminally investigate or prosecute any alcohol or drug abuse patient.[facility] the event this information is protected by the Federal Confidentiality of Alcohol and Drug Abuse Patient Records regulations: The Federal rules restrict any use of the information to criminally investigate or prosecute any alcohol or drug abuse patient.[facility] the event this information is protected by the Federal Confidentiality of Alcohol and Drug Abuse Patient Records regulations: The Federal rules restrict any use of the information to criminally investigate or prosecute any alcohol or drug abuse patient.[facility] the event this information is protected by the Federal Confidentiality of Alcohol and Drug Abuse Patient Records regulations: The Federal rules restrict any use of the information to criminally investigate or prosecute any alcohol or drug abuse patient.[facility] Reason for Visit (unrecogniz ed section and content) Reason Comments Appointment Reason Comments Radiology CT Specialty Diagnoses / Procedures Referred By Contac t Referred To Contact CT IMAGING Diagnoses Renal artery aneurysm (HCC) Procedures CTA ABD/PEL WO/W IVCON CT ANGIO ABD&PLVIS CNTRST MTRL W/WO CNTRST Paco Haddad MD [address] [place] [address] Ct Imaging Referral ID Status Reason Start Date Expiration Date V isits Requested Visits Authorized [id number] Closed Auto-Generate d Referral 09/23/2021 10/23/2022 1 1 Reason Comments Established Patient Reason Comments Radiology Mammogram Specialty Diagnoses / Procedures Referred By Contac t Referred To Contact BR IMAGING Diagnoses Encounter for screening mammogram for breast cancer Procedures JAKE SCREENING SCREENING MAMMOGRAPHY BI 2-VIEW BREAST INC Sharon Gallagher, ELECTRONIC WARFARE TECHNICIAN.SCRIPT WRITER [address] [place] [address] Br Imaging [address] [place] [address] Referral ID Status Reason Start Date Expiration Date V isits Requested Visits Authorized [id number] Closed Auto-Generate d Referral 11/20/2021 12/20/2022 1 1 Reason Comments Radio Gen RMP Reason Comments Radiology XR Reason Comments Cough Nasal Congestion Reason Comments Radio Gen RMP Radiology Service Pr ogress NotePATIENT NAME: Gilda SortoMRN: [id number] OF SERVICE: April 12, 2023TIME: 12:30 PMPATIENT [...] MINIMUM 3 VIEWS Kayla Mata MD [address] [place] [address] [place] [address] Referral ID Status Reason Start Date Expiration Date V isits Requested Visits Authorized [id number] Closed Auto-Generate d Referral 03/21/2023 04/19/2024 1 1 Care Teams (unrecognized sec tion and content) Terminal Superintendent Relationship Specialty Start Date End Date Gonsalo Hubbard MD [address] [facility] [address] [place] [address] PCP - General 08/31/00 Terminal Superintendent Relationship Specialty Start Date End Date Gonsalo Hubbard MD [address] [place] [address] PCP - General 08/31/00 Terminal Superintendent Relationship Specialty Start Date End Date Gonsalo Hubbard MD [address] [place] [address] PCP - General 08/31/00 Terminal Superintendent Relationship Specialty Start Date End Date Gonsalo Hubbard MD [address] [place] [address] PCP - General 08/31/00 Terminal Superintendent Relationship Specialty Start Date End Date Gonsalo Hubbard MD [address] [place] [address] PCP - General 08/31/00 Terminal Superintendent Relationship Specialty Start Date End Date Gonsalo Hubbard MD [address] [place] [address] PCP - General 08/31/00 Terminal Superintendent Relationship Specialty Start Date End Date Gonsalo Hubbard MD [address] [place] [address] PCP - General 08/31/00 Terminal Superintendent Relationship Specialty Start Date End Date Gonsalo Hubbard MD [address] [place] [address] PCP - [employer] 05/16/21 Gonsalo Hubbard MD [address] [place] [address] PCP - General Internal Medicine 12/07/22 Eliud Weiss DPM [address] [place] [address] Referring Physician Podiatry 04/20/23 Ifeanyi Leavitt MD [address] [place] [address] Consulting Physician Dermatology 04/26/23 Sandro Trejo MD [address] [place] [address] [place] [address] Consulting Physician Ophthalmology 04/26/23 Dr Ramirez [facility] Vascular Surgery 11/25/21 Terminal Superintendent Relationship Specialty Start Date End Date Gonsalo Hubbard MD [address] [address] [place] [address] PCP - General 08/31/00 FOR RECORDS PERTAINING [...] BE BASED ON THE PRIMARY CLINICAL RECORDS. [facility] reviews [facility]. provides no warranty or guarantee of the accuracy or completeness of information in this document.
--- NOTE | 2024-02-08 10:15 | VEIN_ITS ---
Patient Name: JACQUELIN SORTO MR#: [id number] : 1950 Exam Date: 02/08/2024 Ordering Doctor: DR JABARI SAENZ M.D. RADIOLOGY REPORT PROCEDURE: VC EXT VENOUS RT LMTD COMPARISON: None. INDICATIONS: I80.01 - Phlebitis and thrombophlebitis of superficial veins right leg TECHNIQUE: Lower extremity natarajan scale and Duplex Doppler evaluation of the deep venous system from the inguinal ligament through the calf veins. FINDINGS: REGION: Right lower extremity. THROMBI: Negative for DVT. Chemically induced thrombus in multiple varicose veins in right leg. COMPRESSIBILITY: Non-compressible segments corresponding to thrombus FLOW: Areas of no flow corresponding to thrombus OTHER: Patent varicose vein mid medial lower leg measures 4.1 mm. CONCLUSION: 1. Successful post ablation occlusion of right leg treated branch saphenous varicosities. Dictated by: Carlos Yeung M.D. on 02/08/2024 at 14:14 Approved by: Carlos Yeung M.D. on 02/08/2024 at 14:15
--- NOTE | 2024-02-08 10:15 | VEIN_ITS ---
Patient Name: JACQUELIN SORTO MR#: [id number] : 1950 Exam Date: 02/08/2024 Ordering Doctor: DR JABARI SAENZ M.D. RADIOLOGY REPORT PROCEDURE: [facility] EST LMTD [facility] - OFFICE VISIT FOLLOW UP [facility] PROGRESS NOTES: The patient reports improvement in leg symptoms. There has been interval reduction in varicosities. The patient has followed our recommendations to walk 20-30 minutes once or twice per day since the procedure. Physical exam demonstrates decrease in varicosities of the leg. Persistent varicosities are identified along the right and left leg. Review of the ultrasound performed the same day demonstrates occlusive thrombus extending throughout the treated vein(s), see separate report, consistent with a successful ablation. No thrombus extending into or beyond the saphenofemoral junction. The patient expressed a desire to proceed with treatment of remaining abnormal varicosities. The patient was informed that treatment was a process and would require several procedures/sessions. [facility]: 1. Successful ablation of the right leg treated branch saphenous vein(s). 2. Persistent bilateral lower extremity varicose veins and lower extremity symptoms. PLAN: 1. Microfoam chemical ablation of right leg branch saphenous varicosities. Nurse notes, history and physical were reviewed and confirmed, see attached forms. The nurse was present throughout the physical exam and consultation Dictated by: Carlos Yeung M.D. on 02/08/2024 at 14:15 Approved by: Carlos Yeung M.D. on 02/08/2024 at 14:16
--- NOTE | 2024-02-08 14:06 | P.DS_ITS ---
Discharge Plan Discharge Disposition: Home, Self-Care Outpatient Diagnostics: VC INJ Foam Sclerosant WUParam TORCH OPERATOR (Routine) Timeframe: 1 Month Facility: [facility] - Location: [facility] Ordered By: Carlos Yeung Follow Up Appointments: 02/23/24 Plan of Treatment: Varithena/microfoam of right leg Print Language: Serbian Discharge Date/Time: 02/08/24 14:07
== END 2024-02-08 14:07 | disposition home or self-care (01) ==
PROVIDERS: PCP Radiology Diagnostic Radiology; Visit Provider Radiology Diagnostic Radiology
DX: I80.01 Phlebitis and thrombophlebitis of superficial vessels of right lower extremity (principal)
CPT/HCPCS: 93971; G0463

== ENCOUNTER 2024-02-23 11:27 | Outpatient (OUT) | payer MEDICARE, SELFPAY ==
--- NOTE | 2024-02-21 12:56 | VEINCLINIC_ITS ---
Vital Signs 02/23/24 12:24 BP 120/72 BP Location Right Brachial BP Position Sitting BP Cuff Size Adult BP Source Manual Cuff Respiration 16 Pulse 72 Pulse Source Monitor Pulse Oximetry (%) 96 Comment The patient's blood pressure is elevated. Varicose Veins Patient in today for microfoam chemical ablation left leg Carlos Garcia MD personally performed the services described in this documentation, as scribed by Veto Allred RN in my presence and it is both accurate and complete. Veto Garcia RN, am scribing for, and in the presence of, Dr. Carlos Yeung and in the presence of the patient. thigh: bilateral (symptoms left > right leg), knee: bilateral, calf: bilateral, ankle: bilateral and beltre: bilateral aching, cramping and dull 5 20 years Worsened in recent months: Yes standing elevating extremities, compression stockings and exercise Reports fatigue, heaviness, limb pain, edema and leg edema History of lower extremity trauma: No Superficial thrombophlebitis: No Family history of varicose veins: yes (Patient's mother) Has patient had previous lower extremity venous surgery: Yes Patient has previously received the following treatment(s) for lower extremity varicose veins: Reports sclerotherapy and laser therapy Does patient have a history of : yes Does patient intend to have future pregnancies: no Has patient had lower extremity venous scan with relux testing: Yes Support hose used: Yes Problems walking or doing physical activity: Yes How does it affect you: decreased ability secondary to pain/edema Do you walk much: Yes Do you stand much: No Review of Systems ROS Narrative Carlos Garcia MD personally performed the services described in this documentation, as scribed by Veto Allred RN in my presence and it is both accurate and complete. Veto Garcia RN, am scribing for, and in the presence of, Dr. Carlos Yeung and in the presence of the patient. Status of ROS 10 or more systems reviewed and unremark able except as noted in history and below Cardiovascular Reports: edema Integumentary/Breast Reports: skin pain, skin tenderness and changes in skin color Neurological Reports: weakness in extremities [facility] Medical History (Updated 02/08/24 @ 09:26 by Charisma Alexandre) Phlebitis and thrombophlebitis of superficial vessels of right lower extremity ?I80.01 - Phlebitis and thrombophlebitis of superficial vessels of right lower extremity (ICD-10) Phlebitis and thrombophlebitis of superficial vessels of left lower extremity ?I80.02 - Phlebitis and thrombophlebitis of superficial vessels of left lower extremity (ICD-10) Renal artery aneurysm ?I72.2 - Aneurysm of renal artery (ICD-10) delivery delivered ?O82 - Encounter for delivery without indication (ICD-10) Pain due to varicose veins of both lower extremities ?I83.813 - Varicose veins of bilateral lower extremities with pain (ICD-10) Squamous cell carcinoma Hyperparathyroidism ?E21.3 - Hyperparathyroidism, unspecified (ICD-10) 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 - Other specified disorders of arteries and arterioles (ICD-10) Hypertension ?I10 - Essential (primary) hypertension (ICD-10) Cataract ?H26.9 - Unspecified cataract (ICD-10) Breast cancer ?C50.919 - Malignant neoplasm of unspecified site of unspecified female breast (ICD-10) Arthritis ?M19.90 - Unspecified osteoarthritis, unspecified site (ICD-10) Anxiety ?F41.9 - Anxiety disorder, unspecified (ICD-10) Surgical History (Updated 02/23/24 @ 12:56 by Veto Allred) S/P sclerotherapy of varicose veins ?Z98.890 - Other specified postprocedural states (ICD-10) ?Z86.79 - Personal history of other diseases of the circulatory system (ICD- 10) S/P sclerotherapy of varicose veins ?Z98.890 - Other specified postprocedural states (ICD-10) ?Z86.79 - Personal history of other diseases of the circulatory system (ICD- 10) Status post ablation of incompetent vein using laser ?Z98.890 - Other specified postprocedural states (ICD-10) History of arthroplasty of left knee ?Z96.652 - Presence of left artificial knee joint (ICD-10) History of tonsillectomy and adenoidectomy ?Z90.89 - Acquired absence of other organs (ICD-10) H/O: hysterectomy ?Z90.710 - Acquired absence of both cervix and uterus (ICD-10) History of surgical removal of squamous cell carcinoma of skin of episcopal region ?Z98.890 - Other specified postprocedural states (ICD-10) ?Z85.828 - Personal history of other malignant neoplasm of skin (ICD-10) H/O parathyroidectomy ?Z98.890 - Other specified postprocedural states (ICD-10) ?Z90.89 - Acquired absence of other organs (ICD-10) Hx of appendectomy ?Z90.49 - Acquired absence of other specified parts of digestive tract (ICD- 10) Family History (Updated 01/17/24 @ 11:24 by Veto Allred) Other Family history of hypertension Heart disease Pain due to varicose veins of both lower extremities Social History (Updated 01/17/24 @ 11:24 by Veto Allred) Within the past year, how often did you have a drink containing alcohol: 2-4 times a month Smoking status: Never smoker Non-prescribed substance use: denies use Meds Home Medications and Allergies Home Medications ?Medication ?Instructions ?Recorded ?Confirmed ?Type lorazepam 0.5 mg tablet (Ativan) 0.25 mg PO DAILY PRN anxiety 01/17/24 01/17/24 History multivitamin (Daily Multi-Vitamin 1 tab PO DAILY 01/17/24 01/17/24 History tablet) omeprazole 40 mg capsule,delayed 40 mg PO DAILY 01/17/24 01/17/24 History release triamterene 37.5 1 cap PO DAILY 01/17/24 01/17/24 History mg-hydrochlorothiazide 25 mg capsule zolpidem 5 mg tablet (Ambien) 01/17/24 History Allergies Allergy/AdvReac Type Severity Reaction Status Date / Time TRACY Inhibitors Allergy Severe Swelling Verified 01/17/24 11:28 of Lip/Tongue/Throat doxycycline Allergy Intermediate Rash Verified 01/17/24 11:28 nitrofurantoin Allergy Intermediate Rash Verified 01/17/24 11:28 Sulfa (Sulfonamide Allergy Rash Verified 01/17/24 11:28 Antibiotics) Exam Narrative Exam Narrative: ICarlos MD personally performed the services described in this documentation, as scribed by Veto Allred RN in my presence and it is both accurate and complete. IVeto RN, am scribing for, and in the presence of, Dr. Carlos Yeung and in the presence of the patient. Constitutional Documenting provider has reviewed patient's vital signs: yes Common normals: oriented x3 Cardio Peripheral pulses: posterior tibial pulses present and dorsalis pedis pulses present Extremity Common normals: normal capillary refill General: calf tenderness and edema Right lower extremity: lower leg Right lower leg: inspection and palpation Left lower extremity: lower leg Left lower leg: inspection and palpation Neuro Common normals: oriented x3 Assessment and Plan Assessment and Plan (1) Pain due to varicose veins of both lower extremities: Plan f/u evaluation with physician along with left leg limited u/s Carlos Garcia MD personally performed the services described in this documentation, as scribed by Veto Allred RN in my presence and it is both accurate and complete. IVeto RN, am scribing for, and in the presence of, Dr. Carlos Yeung and in the presence of the patient. Procedures Procedure Instructions Procedures Left leg microfoam chemical ablation/Varithena: Risks and benefits of the procedure were discussed at length and informed written consent was obtained.? Time-out procedure was performed and the correct patient and procedure were confirmed.? Staff present during time-out: Veto Allred RN and Carlos Yeung MD.? Patient prepped and procedure performed in usual sterile fashion.? Patient was placed in Trendelenburg prior to Polidocanol/Varithena injections. Sclerosing Agent:?? 14cc 1% Polidocanol/Varithena Site Injected: left le Number of Injections:? 4cc varithena administered in to a 4mm varicose vein medial ankle 6cc varithena administered in to a 4mm varicose vein distal medial lower leg 4cc varithena administered in to a 4mm varicose vein distal medial upper leg The patient tolerated the procedure well without complication.? Hemostasis was obtained and thigh-high compression stocking was applied with foam pads.? Instructed patient to wear stocking for at least 96 hours and sleep with it and only remove for showering.? The patient was instructed to? wear stocking for 2 weeks.? Patient verbalizes understanding and states they will comply.? Patient was given post-procedure instructions. Patient was discharged in good condition.? Scheduled to undergo limited venous ultrasound and? exam on 03/01/2024. Carlos Garcia MD personally performed the services described in this documentation, as scribed by Veto Allred RN in my presence and it is both accurate and complete. I, Veto Allred RN, am scribing for, and in the presence of, Dr. Carlos Yeung and in the presence of the patient.
--- NOTE | 2024-02-21 13:03 | W.VEIN ---
Discharge Plan Discharge Disposition: Home, Self-Care Outpatient Diagnostics: [facility] Facility EST LMTD (Routine) Timeframe: 2 Weeks Facility: [facility] - Location: [facility] Center Ordered By: Carlos Yeung VC EXT Venous LT Limited (Routine) Timeframe: 2 Weeks Facility: [facility] - Location: Vein Center Ordered By: Carlos Yeung Follow Up Appointments: 03/01/2024 Plan of Treatment: f/u examination with physician along with left leg limited u/s Patient Instructions: Polidocanol (By injection) (Asclera, Varithena) Print Language: Slovenian Discharge Date/Time: 02/23/24 13:01
--- NOTE | 2024-02-23 11:28 | VEIN_ITS ---
[address] [address] Patient Name: JACQUELIN SORTO MRN: [id number] date: 1950 Sex: F Assigned Patient Location: Current Patient Location: Accession/Order Number: [id number] Exam Date: 02/23/2024 11:30 Report Date: 02/23/2024 13:15 At the request of: JABARI SAENZ Procedure: VC INJ Foam Sclerosant WUS FRENCH DRAWER PROCEDURE: VC INJ Foam Sclerosant WUS FRENCH DRAWER HISTORY: I83.813 - Varicose veins of bilateral lower extremities w... Pre-operative Diagnosis: CEAP class C4a venous insufficiency with pain, tenderness, edema and incompetent branch saphenous vein(s), chronic venous insufficiency left leg secondary to venous incompetence Post-operative Diagnosis: CEAP class C4a venous insufficiency with pain, tenderness, edema and incompetent branch saphenous vein(s), chronic venous insufficiency left leg secondary to venous incompetence Procedure Performed: 1. Ultrasound-guided microfoam chemical ablation with Varithenaregistered 2. Intraoperative ultrasound guidance Physician: Elpidio Yeung M.D. Anesthesia: None Indications for Procedure: 73 year old female. Symptoms including lower extremity pain, swelling, dilated bulging veins for many years despite conservative medical therapy including medical compression stockings, exercise and analgesics. Prior procedures include endovenous laser ablation and microfoam chemical ablation. Multiple incompetent varicosities of the left leg. Duplex scan showed reflux and enlarged diameters up to 4 mL mm. The patient underwent informed consent including management options where the complications of infection, bleeding, pain, and skin injury were discussed. Particular attention was spent discussing thrombus extension and deep vein thrombosis as well as the possibility of pulmonary embolus and treatment with oral or injectable blood thinners. Procedure: The patient walked to the procedure room. All applicable staff donned appropriate apparel. A procedure timeout was performed to confirm correct patient, correct extremity, correct procedure, and correct room set-up including presence of all applicable supplies, devices, and drugs. A duplex ultrasound, performed by myself confirmed the location and incompetence of branch saphenous varicosities and their course was marked on the skin together with the dilated tributaries. The extent of treatment of the vein and the associated varicosities was determined through ultrasound mapping. The skin was prepped and then punctured with a butterfly needle and advanced under ultrasound guidance. The Varithenaregistered canister was activated and the canister was primed and purged as required in the instructions for use. Varithenaregistered was drawn into a sterile syringe. Varithenaregistered was slowly administered at 0.5-1.0 cc/second with close observation by ultrasound of its course in the vessels. Total volume utilized was: 15 mL (4 mL into a 4 mm varicosity medial to the ankle; 6 mL into a 4 mm varicosity distal medial lower leg; 3 mL into a 4 mm varicosity mid upper leg). Following administration of Varithenaregistered the leg was elevated and the patient was asked to repeatedly dorsiflex the ankle to limit flow of Varithenaregistered into perforating veins. Once appropriate spasm had been confirmed in the treated veins, the vascular catheter was removed from the leg and light pressure was applied over the puncture site for hemostasis. The common femoral and deep superficial veins were then evaluated for flow and compressibility prior to dressing placement. The lower extremity was kept elevated at 45 degrees above the horizontal and cording material was applied over the saphenous segments and tributaries to allow for eccentric compression over the target vessels including the targeted saphenous vein(s). A multilayer dressing was applied consisting of foam pads, coban and thigh-high 20-30 mm Hg compression elastic support hose were placed on the patient. The leg was lowered only after compression had been applied and the patient was immediately ambulatory. The patient ambulated 10 minutes under supervision and was without apparent concerns at time of release. Post-care instructions include advising patient to keep post-treatment bandages in place and dry for 48 hours, avoid extended periods of inactivity, avoid heavy exercise for one week, wear compression stockings on the treated leg continuously for two weeks, to walk daily for 10 minutes over the next month. The patient was instructed to take an anti-inflammatory medicine as needed and to follow up for color duplex scan of the Saphenous veins, the treated branch saphenous varicosities, the adjacent deep veins, and additional treatment within 7 days. PERSONNEL: Veto Allred RN, Charisma Alexandre RDMS Electronically authenticated by: ELPIDIO YEUNG Date: 02/23/2024 13:15
--- OUTSIDE RECORDS SUMMARY | 2024-02-23 11:38 | XMS_ITS | CCD ---
Author Organization [facility] CliniSyid Care Team Providers Care Planer Tailer Name Role Phone Gonsalo Hubbard MD Primary [...] Unavailable SHARON SALDIVAR Referring Unavailable Gonsalo Hubbard MD Unavailable Gonsalo Hubbard MD Primary Care Provider [phone] Abhishek TSAI, Eliud Cuevas Unavailable [phone] Ifeanyi Leavitt MD Unavailable Sandro Trejo MD Unavailable GONSALO HUBBARD Referring Unavailable SAMIA SANZ Attending Unavailable GONSALO HUBBARD Attending Unavailable GRAZYNA BERMUDEZ Attending Unavailable GRAZYNA BERMUDEZ Referring Unavailable GONSALO HUBBARD Attending Unavailable Gonsalo Hubbard MD Primary Care Provider Gonsalo Hubbard Primary Care Unavailable Juan Lundberg Attending Unavailable Juan Lundberg Admitting Unavailable Gonsalo Hubbard Admitting Unavailable Gonsalo Hubbard Referring Unavailable Gonsalo Hubbard Attending Unavailable Gonsalo Hubbard Primary Care Unavailable Allergies Allergy Classification Reported Allergen(s) Allergy Type Date of Onset Reaction(s) Facility (14 sources) Doxycycline; Translations: [DOXYCYCLINE] Drug Allergy 8 Rash [facility] Work Phone: (14 sources) Sulfonamides (Antibiotic); Translations: [SULFA (SULFONAMIDE ANTIBIOTICS)] Drug Allergy 4 Anaphylaxis, Unknown [facility] (2 sources) Angiotensin-conver ting enzyme inhibitor agent Drug Allergy 3 Angioedema [facility] (2 sources) Nitrofurantoin Drug Allergy 3 GI intolerance [facility] (1 source) Doxycycline Drug Allergy 4 [facility] Repository (1 source) Sulfonamides (Antibiotic) Drug allergy (disorder) 4 [facility] Repository Medications Current Medications Medication Drug Class(es) Dates [...] m out 1 hour before dental procedure ascorbic acid [...] on above: Take 1 capsule by mo uth once daily. levocetirizine dihydrochloride 5 mg oral [...] MG tablet Indications: SIOBHAN (generalized anxiety disorder) ([facility]) Take 1 tablet (0.5 mg) by mouth [...] on above: Take 1 tablet by twyla once daily. Allergy medication potassium chloride 10 [...] 12-02-2017 Episodic Other aftercare (1 source) Other watermelon inspector (current) drug therapy; Translations: [Other halfway (current) drug therapy] Onset: 01-12-2022 Episodic Other [...] Test Name Value Interpretation Reference Range Facility XR knee RT 4V*on 02-21-2024 XR knee RT 4V* [facility] [place] [address] XRay Report Signed Patient: Gilda Sorto MR#: [id number] 0 : 1950 Acct:[id number] Age/Sex: 73 / F ADM Date: 02/21/24 Loc: ER Room: Type: [facility] ER Attending Dr: Copies to: Juan Lundberg APRN Ordering Provider: Juan Lundberg APRN Date of Service: 02/21/24 XR/XR wrist LT min 3V*: Fall ([id number]) XR/XR knee RT 4V*: Fall LEFT WRIST - 4 views, right knee 4 views CLINICAL HISTORY: Fall today. Anterior abrasion/bruising pain to left wrist. Burning bruising to anterior right knee. COMPARISON: None FINDINGS: Left wrist: No focal soft tissue abnormality. Bones are grossly demineralized. Likely remote injury involving the styloid process of the ulna. Degenerative changes involving the carpus with severe degenerative changes involving the scaphotrapezial joint and CMC joint of the thumb. Right knee: Anterior soft tissue swelling. No significant joint effusion. Mild degenerative changes without acute bony process. XR/XR wrist LT min 3V* IMPRESSION: RIGHT WRIST DEMONSTRATES DEGENERATIVE CHANGES INVOLVING THE CARPUS WITH PRESUMED REMOTE INJURY INVOLVING THE STYLOID PROCESS OF THE ULNA. CORRELATION WITH AREA OF PAIN IS RECOMMENDED. RIGHT KNEE DEMONSTRATES ANTERIOR SOFT TISSUE SWELLING WITH MILD DEGENERATIVE CHANGE. NO ACUTE BONY PROCESS IS NOTED. Impression dictated by: Alexis Rosa Jr., D.OConcha02/21/2024 1:44 PM Dictation Location: [place] [address] Transcribed By: [facility] 02/21/24 1344 Dictated By: Alexis Rosa Jr, DO 02/21/24 1342 Signed By: 02/21/24 1344 Normal [facility] CT ABDOMEN PELVIS W IV CONTR Thai [...] n 04-19-2023 MM screening mammo BI w/CAD [facility] [place] [address] [place] [address] Mammography Report Signed Patient: Gilda Sorto MR#: [id number] 0 : 1950 Acct:[id number] Age/Sex: 72 / F ADM Date: 04/19/23 Loc: MD Room: Type: [facility] Attending Dr: Gonsalo Hubbard MD Copies [...] Azam Cason M.D.04/19/2023 1:37 PM Dictation Location: [facility] Transcribed By: ISABELA 04/19/231336 Dictated By: Azam Cason II, MD 04/19/231331 Signed By: 04/19/231336 Normal [facility] CNOVon 04-12-2023 CNOV Office Visit (PLASST ) GILDA SORTO ([id number]) 1950 F Date Time Provider Department 04/12/23 1:00 PM KAYLA MATA During your visit today, we recorded the following information about you: Kayla Mata MD 04/12/2023 4:51 PM Signed PLASTIC SURGERY DEPARTMENT [facility] Hand Surgery Note [x] New referred by [...] [x] Anticoagula (more content not included)... Normal [facility] No Panel Informationon 04-12 Radiology Study observation (narrative) [facility] XR HAND 3V PA/LAT/OBL BILon 04-12-2023 [...] 1. Osteoarthritis of both hands and wrists. Visual Effects Editor: CHARLOTTE Transcribe Date/Time: Apr 12 2023 1:52P Dictated by : EDITH LAZO MD This examination was interpreted and the report reviewed and electronically signed by: EDITH LAZO MD on Apr 12 2023 1:54PM EST [id number] Normal [facility] XR Hand - bilateral PA and L ateral and Obliqueon 04-12-2023 IMPRESSION: 1. Osteoarthritis of both hands and wrists. Visual Effects Editor: CHARLOTTE Transcribe Date/Time: Apr 12 2023 1:52P Dictated by : EDITH LAZO MD This examination was interpreted and the report reviewed and electronically signed by: EDITH LAZO MD on Apr 12 2023 1:54PM [facility] DIVISION OF RADIOLOGY * * *Final Report* [...] erosions are demonstrated. DIVISION OF RADIOLOGY Provider, [facility] - 04/12/2023 * * *Final Report* [...] 1. Osteoarthritis of both hands and wrists. Visual Effects Editor: CHARLOTTE Transcribe Date/Time: Apr 12 2023 1:52P Dictated by : EDITH LAZO MD This examination was interpreted and the report reviewed and electronically signed by: EDITH LAZO MD on Apr 12 2023 1:54PM EST [facility] XR Hand - bilateral PA and L ateral and ObliqueOrdered By: [facility]cf Provider on 04-12-2023 [facility] XR WRIST 3V PA/LAT/OBL BILon 04-12-2023 [...] IMPRESSION: 1. Degenerative arthrosis of both wrists. Visual Effects Editor: CHARLOTTE Transcribe Date/Time: Apr 12 2023 1:54P Dictated by : EDITH LAZO MD This examination was interpreted and the report reviewed and electronically signed by: EDITH LAZO MD on Apr 12 2023 1:55PM EST [id number] Normal [facility] XR Wrist - bilateral PA and Lateral and Obliqueon 04-12-2023 IMPRESSION: 1. Degenerative arthrosis of both wrists. Visual Effects Editor: CHARLOTTE Transcribe Date/Time: Apr 12 2023 1:54P Dictated by : EDITH LAZO MD This examination was interpreted and the report reviewed and electronically signed by: EDITH LAZO MD on Apr 12 2023 1:55PM [facility] DIVISION OF RADIOLOGY * * *Final Report* [...] erosions are demonstrated. DIVISION OF RADIOLOGY Provider, [facility]23 * * *Final Report* * [...] IMPRESSION: 1. Degenerative arthrosis of both wrists. Visual Effects Editor: PSCB Transcribe Date/Time: Apr 12 2023 1:54P Dictated by : EDITH LAZO MD This examination was interpreted and the report reviewed and electronically signed by: EDITH LAZO MD on Apr 12 2023 1:55PM [facility] CNCOon 04-16-2022 CNCO HNO ID: [id number] Author: Mammography Coordinator Service: ? Author Type: Physician Type: Letter Filed: 04/19/2022 11:36 PM Note Text: April 16, 2022 PID: [id number] Gilda Sorto [address] [facility] [place] [address] Dear Ms. Sorto, We are pleased to [...] report will be kept on file at [facility] as part of your permanent medical record and are available for your continuing care. Thank you for allowing us to help in meeting your health care needs. Sincerely, Dr. Perez Interpreting Radiologist [facility] (Normal over 40) Normal [facility] CNOVSPon 04-16-2022 CNOVSP Visit (SP) Office (HEMCA4) GILDA SORTO ([id number]) 1950 F Date Time Provider Department 04/16/22 12:30 PM SHARON SALDIVAR HEMCA4 During your visit today, we recorded the following information about you: Temperature Pulse Respiration Blood pressure 98.1 degrees 85/minute 20/minute 117/60 Sue Leblanc MA 04/16/2022 11:54 AM Signed Additional intake questions: Has the patient had fever, nausea, vomiting, diarrhea, constipation, fatigue for > 1 week? No Does the patient have a decreased appetite? No Does patient want to see a Cutter Operator Helper? No (yes to any of above refer patient to schedulers for dietitian appointment) ) Does patient have any new or increased numbness or tingling of extremities? No Is patient interested in fertility information? No Does patient need any prescription refills? No Does patient have an advanced directive in place? Yes, copies are in Epic Electronically Signed By: WESLEY Thomas APRN.[facility] 04/16/2022 2:06 PM Signed ATTENDING PHYSICIAN: Dr. [...] which included preparing to see the patient, [id number] patient care, completing clinical documentation, performing a medically appropriate examination, counseling and educating the patient/family/caregive r, ordering medications, tests, or procedures, communicating with other HCPs (not separately reported), independently interpreting results (not separately reported), communicating results to the patient/family/caregive r, and care coordination (not separately reported). Sharon Saldivar APRN.[facility] Referring Provider: SHARON SALDIVAR [[id number]] Allergies As of Date: 04/16/2022 Noted Allergy [...] Z17.1] Order(s):WESLEY (more content not included)... Normal [facility] SCREENING W TOMOon 04-16 JAKE SCREENING W JOE * * *Final Report* * * DATE OF EXAM: Apr 16 2022 11:12AM CAW 0582 - JAKE SCREENING W JOE / PROCEDURE REASON: Encounter for screening mammogram for breast cancer * * * * Physician Interpretation * * * * RESULT: #[id number] - JAKE SCREENING W JOE BILATERAL DIGITAL [...] to exams dated: 11/24/2020 mammogram - [facility], 11/22/2019 mammogram, 11/14/2018 [facility], 11/11/2017 mammogram, and 11/02/2016 mammogram - [facility]. There are scattered fibroglandular elements [...] 1 year screening mammogram is recommended. Bernardo Perez M.D. ay/ayde:04/16/2022 11:38:26 Patrol Driver(s): RT Mario(Mason)(Ericka)(BS), [facility] letter sent: Normal over 40 [...] Health, Family Medicine, and Medical/Surgical Oncology, the [facility] has carefully reviewed the data and [...] their providers when to stop screening mammograms. Visual Effects Editor: Ayde Transcribe Date/Time: Apr 16 2022 11:12A Dictated by : BERNARDO PEREZ MD This examination was interpreted and the report reviewed and electronically signed by: BERNARDO PEREZ MD on Apr 16 2022 11:38AM EST [id number] Normal [facility] SARS-CoV-2,INFLUENZA A/B [facility] ACID TESTon 12-15-2021 EUA DISCLAIMER [facility] Comment on above: Result Comment: Infl uenza [...] is terminated or revoked sooner. Performed at [facility] [address] [facility] [address] FLU A by PCR Negative [facility] FLU B by PCR Negative [facility] SARS-CoV-2 (COVID-19) RNA ANGELICA+probe Ql (Unsp spec) Abnormal NEG [facility] Comment on above: Result Comment: Posi tive for COVID-19 CRITICAL VALUE-PHYSICIAN MUST BE NOTIFIED RESULTS PHONED TO: Carmel Tinajero RN at 0928 VERBAL RESULT VERIFICATION RECEIVED EUA DISCLAIMER [facility] Comment on above: Result Comment: [...] is terminated or revoked sooner. Performed at [place] [id number] [place] [id number] FLU A by PCR Negative Normal [facility] FLU B by PCR Negative Normal [facility] SARS-CoV-2 (COVID-19) RNA ANGELICA+probe Ql (Unsp spec) Abnormal NEG [facility] Comment on above: Result Comment: Posi tive for COVID-19 CRTV RESULTS PHONED TO: Jenny Fitzpatrick RN at 0854 VERBAL RESULT VERIFICATION RECEIVED CBC with Diffon 12-09-2021 AB IMMATURE NEUT 0.02 K/UL Normal 0.0-0.1 [facility] ABS BASO 0.02 K/UL Normal 0.00-0.22 [facility] ABS EOS 0.32 K/UL Normal 0-0.45 [facility] ABS NEUTROPHILS 4.34 K/UL Normal 1.8-7.7 [facility] ABS.NEUT.CALCULATED 4.34 K/UL Normal [facility] Comment on above: Result Comment: Perf ormed at [place] [id number] [facility] [address] Basophils/100 WBC (Bld) 0.30 % Normal 0-1 [facility] DIFF TYPE AUTO DIFF Normal [facility] Eosinophils/100 WBC (Bld) 5.10 % High 0-3 [facility] Erythrocyte distribution width (RBC) [Ratio] 12.7 % Normal 11.7-15.0 [facility] Hematocrit (Bld) [Volume fraction] 41.9 % Normal 36-44 [facility] Hemoglobin (Bld) [Mass/Vol] 13.5 g/dL Normal 12.0-15.0 [facility] Lymphocytes (Bld) [#/Vol] 1.15 10*3/uL Low 1.2-3.2 [facility] Lymphocytes/100 WBC (Bld) 18.30 % Low 20-40 [facility] MCH (RBC) [Entitic mass] 31.0 pg Normal 26-34 [facility] MCHC 32.2 % Normal 31-37 [facility] MCV (RBC) [Entitic vol] 96.3 fL Normal 80-100 [facility] MEAN PLT VOL 9.0 CU Normal 7.0-12.6 [facility] Monocytes (Bld) [#/Vol] 0.44 10*3/uL Normal 0-0.8 [facility] Monocytes/100 WBC (Bld) 7.00 % Normal 0-8 [facility] Neutrophils/100 WBC (Bld) 0.30 % Normal 0.0-1.0 [facility] Neutrophils/100 WBC (Bld) 69.00 % Normal 50-70 [facility] Platelets (Bld) [#/Vol] 240 10*3/uL Normal 150-450 [facility] RBC (Bld) [#/Vol] 4.35 10*6/uL Normal 4.0-4.9 [facility] RDW-SD 45.4 FL Normal 37.0-54.0 [facility] WBC (Bld) [#/Vol] 6.3 10*3/uL Normal 4.5-11.0 [facility] COMPREHENSIVE METABOLIC PANE Juanito 12-09-2021 Albumin [Mass/Vol] 4.2 g/dL Normal 3.5-5.0 [facility] Albumin/Globulin [Mass ratio] 1.6 {ratio} Normal 1.5-3.0 [facility] ALP [Catalytic activity/Vol] 80 U/L Normal 35-125 [facility] ALT [Catalytic activity/Vol] 26 U/L Normal 5-40 [facility] Anion gap [Moles/Vol] 7 mmol/L Normal 0-19 [facility] AST [Catalytic activity/Vol] 32 U/L Normal 5-40 [facility] Bilirubin [Mass/Vol] 0.3 mg/dL Normal 0.1-1.2 [facility] Calcium [Mass/Vol] 9.4 mg/dL Normal 8.5-10.4 [facility] Chloride [Moles/Vol] 103 mmol/L Normal 97-107 [facility] CO2 [Moles/Vol] 31 mmol/L Normal 24-31 [facility] Creatinine [Mass/Vol] 1.2 mg/dL Normal 0.4-1.6 [facility] ESTIMATED GFR 48 mL/min/1.73 m2 Normal [facility] Comment on above: Result Comment: CALCULATIONS OF ESTIMATED GFR ARE PERFORMED USING THE 2020 CKD-EPI STUDY REFIT EQUATION WITHOUT THE RACE VARIABLE FOR THE IDMS-TRACEABLE CREATININE METHODS. https://jasn.asnjournals.org/content/early/ASN.4980041 988 Performed at [place] [address] Globulin (S) [Mass/Vol] 2.6 g/dL Normal 1.9-3.7 [facility] Glucose [Mass/Vol] 87 mg/dL Normal 65-99 [facility] Potassium [Moles/Vol] 4.8 mmol/L Normal 3.4-5.1 [facility] Protein [Mass/Vol] 6.8 g/dL Normal 5.9-7.9 [facility] Sodium [Moles/Vol] 141 mmol/L Normal 133-145 [facility] Urea nitrogen [Mass/Vol] 13 mg/dL Normal 8-25 [facility] Urea nitrogen/Creatinine [Mass ratio] 10.8 mg/mg Normal 8-21 [facility] UA-REFLEX TO CULTUREon 12-09 EPI Normal [facility] Comment on above: Result Comment: Occa sional SQUAMOUS Performed at [place] [address] RBC NONE SEEN Normal 0-3 [facility] Urinalysis dipstick W Reflex Microscopic panel (U) MANUAL MICROSCOPIC URINES Normal [facility] WBC NONE SEEN Normal 0-3 [facility] Bacteria identified Cx Nom (U) CULTURE NOT INDICATED Normal [facility] Comment on above: Result Comment: CULT URE NOT INDICATED Performed at [address] [address] BILI Negative Normal NEG [facility] Clarity (U) CLEAR Normal [facility] Color (U) YELLOW Normal [facility] GLUC Negative Normal NEG [facility] Hemoglobin Ql (U) Negative Normal NEG [facility] KET Negative Normal NEG [facility] LEUK Negative Normal NEG [facility] NIT Negative Normal NEG [facility] pH (U) 8.0 [pH] Normal 4.6-8.0 [facility] PROT Negative Normal NEG [facility] SP GRAV,URINE 1.015 Normal 1.005-1.030 [facility] URO 0.2 MG/DL Normal 0-1.0 [facility] CREATININE, BLOOD (POC)on Creatinine [Mass/Vol] 1.20 mg/dL 0.7 - 1.4 mg/dL [facility] eGFR (POCT) 48 mL/min/1.73 m2 [facility] CTA ABD/PEL W IVCONon 2021 [facility] MRI Shoulder w/o Righton MRI Shoulder [...] by Gonsalo Alvarez on 10/21/2021 1010 Normal [facility] Specialist Complete Blood Count with Au to Diffon 04-21-2021 Basophils (Bld) [#/Vol] 0.03 10*3/uL Normal 0.00-0.20 [facility] Specialist Comment on above: Performed By: #### C BCAD, VITD, LIPD, CMP #### [facility] [address] [place], [place] [phone] Basophils/100 WBC (Bld) 0.5 % Normal [facility] Specialist Comment on above: Performed By: #### C BCAD, VITD, LIPD, CMP #### [facility] [address], [place] [phone] Eosinophils (Bld) [#/Vol] 0.27 10*3/uL Normal 0.02-0.50 [facility] Specialist Comment on above: Performed By: #### C BCAD, VITD, LIPD, CMP #### [facility] [address], [place] [phone] Eosinophils/100 WBC (Bld) 4.6 % Normal [facility] Specialist Comment on above: Performed By: #### C BCAD, VITD, LIPD, CMP #### [facility] [address], [place] [phone] Erythrocyte distribution width (RBC) [Ratio] 13.1 % Normal 11.0-15.0 [facility] Specialist Comment on above: Performed By: #### C BCAD, VITD, LIPD, CMP #### [facility] [address], [place] [phone] Hematocrit (Bld) [Volume fraction] 43.9 % Normal 35.0-47.0 [facility] Specialist Comment on above: Performed By: #### C BCAD, VITD, LIPD, CMP #### [facility] [address], [place] [phone] Hemoglobin (Bld) [Mass/Vol] 14.0 g/dL Normal 11.6-15.5 [facility] Specialist Comment on above: Performed By: #### C BCAD, VITD, LIPD, CMP #### [facility] [address] [place], [place] [id number] Lymphocytes (Bld) [#/Vol] 1.9 10*3/uL Normal 0.9-3.9 [facility] Specialist Comment on above: Performed By: #### C BCAD, VITD, LIPD, CMP #### [facility] [address], [place] [phone] Lymphocytes/100 WBC (Bld) 31.8 % Normal [facility] Specialist Comment on above: Performed By: #### C BCAD, VITD, LIPD, CMP #### [facility] [address], [place] [id number] MCH (RBC) [Entitic mass] 30.0 pg Normal 27.0-33.0 [facility] Specialist Comment on above: Performed By: #### C BCAD, VITD, LIPD, CMP #### [facility] [address], [place] [phone] MCHC (RBC) [Mass/Vol] 31.9 g/dL Low 32.0-36.0 [facility] Specialist Comment on above: Performed By: #### C BCAD, VITD, LIPD, CMP #### [facility] [address], [place] [id number] MCV (RBC) [Entitic vol] 94 fL Normal 80-100 [facility] Specialist Comment on above: Performed By: #### C BCAD, VITD, LIPD, CMP #### [facility] [address], [place] [id number] Monocytes (Bld) [#/Vol] 0.5 10*3/uL Normal 0.2-0.9 [facility] Specialist Comment on above: Performed By: #### C BCAD, VITD, LIPD, CMP #### [facility] [address], [place] [id number] Monocytes/100 WBC (Bld) 7.9 % Normal [facility] Specialist Comment on above: Performed By: #### C BCAD, VITD, LIPD, CMP #### [facility] [address], [place] [id number] Neutrophils (Bld) [#/Vol] 3.2 10*3/uL Normal 1.5-7.8 [facility] Specialist Comment on above: Performed By: #### C BCAD, VITD, LIPD, CMP #### [facility] [address], [place] [phone] Neutrophils/100 WBC (Bld) 54.9 % Normal [facility] Comment on above: Performed By: #### C BCAD, VITD, LIPD, CMP #### [facility] [address], [place] [id number] Platelet mean volume (Bld) [Entitic vol] 9.90 fL Normal 7.50-12.50 [facility] Comment on above: Performed By: #### C BCAD, VITD, LIPD, CMP #### [facility] [address], [place] [id number] Platelets (Bld) [#/Vol] 255 10*3/uL Normal 140-400 [facility] Specialist Comment on above: Performed By: #### C BCAD, VITD, LIPD, CMP #### [facility] [address], [place] [phone] RBC (Bld) [#/Vol] 4.67 10*6/uL Normal 3.90-5.20 [facility] Specialist Comment on above: Performed By: #### C BCAD, VITD, LIPD, CMP #### [facility] [address], [place] [id number] RDW-SD 44.8 fL Normal 37.0-50.0 [facility] Specialist Comment on above: Performed By: #### C BCAD, VITD, LIPD, CMP #### [facility] [address], [place] [id number] WBC (Bld) [#/Vol] 5.8 10*3/uL Normal 3.8-11.0 [facility] Comment on above: Performed By: #### C BCAD, VITD, LIPD, CMP #### [facility] [address], [place] [id number] Comprehensive Metabolic Pane juanito 04-21-2021 Albumin [Mass/Vol] 4.5 g/dL Normal 3.6-5.1 [facility] Comment on above: Performed By: #### C BCAD, VITD, LIPD, CMP #### [facility] [address], [place] [phone] Albumin/Globulin [Mass ratio] 2.3 {ratio} Normal 1.0-2.5 [facility] Specialist Comment on above: Performed By: #### C BCAD, VITD, LIPD, CMP #### [facility] [address], [place] [id number] ALP [Catalytic activity/Vol] 96 U/L Normal 35-119 [facility] Specialist Comment on above: Performed By: #### C BCAD, VITD, LIPD, CMP #### [facility] [address], [place] [id number] ALT [Catalytic activity/Vol] 24 U/L Normal 6-33 [facility] Specialist Comment on above: Result Comment: 04/15 Female reference range changed. Performed By: #### C BCAD, VITD, LIPD, CMP #### [facility] [address], [place] [id number] Anion gap [Moles/Vol] 18 mmol/L Normal 12-20 [facility] Specialist Comment on above: Result Comment: Effe ctive 05/21/2019 reference range changed. Performed By: #### C BCAD, VITD, LIPD, CMP #### [facility] [address], [place] [id number] AST [Catalytic activity/Vol] 30 U/L Normal 9-34 [facility] Specialist Comment on above: Performed By: #### C BCAD, VITD, LIPD, CMP #### [facility] [address], [place] [id number] Bilirubin [Mass/Vol] 0.51 mg/dL Normal 0.30-1.20 [facility] Comment on above: Performed By: #### C BCAD, VITD, LIPD, CMP #### [facility] [address], [place] [id number] BUN/CREA 21 Ratio Normal 6-22 [facility] Specialist Comment on above: Performed By: #### C BCAD, VITD, LIPD, CMP #### [facility] [address], [place] [id number] Calcium [Mass/Vol] 9.8 mg/dL Normal 8.6-10.2 [place] Sliver Cutter Comment on above: Performed By: #### C BCAD, VITD, LIPD, CMP #### [facility] [address], [place] [id number] Chloride [Moles/Vol] 103 mmol/L Normal 98-107 [facility] on above: Performed By: #### C BCAD, VITD, LIPD, CMP #### [facility] [address], [place] [id number] CO2 [Moles/Vol] 26 mmol/L Normal 20-31 [facility] Sliver Cutter Comment on above: Performed By: #### C BCAD, VITD, LIPD, CMP #### [facility] [address], [place] [id number] Creatinine [Mass/Vol] 1.1 mg/dL Normal 0.6-1.4 [facility] Sliver Cutter Comment on above: Performed By: #### C BCAD, VITD, LIPD, CMP #### [facility] [address], [place] [id number] eGFRAA 58 mL/min/1.73m2 Low >60 [facility] Sliver Cutter Comment on above: Performed By: #### C BCAD, VITD, LIPD, CMP #### [facility] [address], [place] [id number] eGFRNAA 48 mL/min/1.73m2 Low >60 [facility] Sliver Cutter Comment on above: Performed By: #### C BCAD, VITD, LIPD, CMP #### [facility] [address], [place] [id number] Globulin (S) [Mass/Vol] 2.0 g/dL Normal 1.9-3.7 [facility] Sliver Cutter Comment on above: Performed By: #### C BCAD, VITD, LIPD, CMP #### [facility] [address], [place] [id number] Glucose [Mass/Vol] 91 mg/dL Normal 65-99 [place] Sliver Cutter Comment on above: Result Comment: For FASTING Glucose --- ADA reference ranges: Normal 65-99 mg/dl Prediabetes 100-125 Diabetes >/= 126 Performed By: #### C BCAD, VITD, LIPD, CMP #### [facility] [address], [place] [id number] Potassium [Moles/Vol] 4.5 mmol/L Normal 3.5-5.5 [facility] Sliver Cutter Comment on above: Performed By: #### C BCAD, VITD, LIPD, CMP #### [facility] [address], [place] [id number] Protein [Mass/Vol] 6.5 g/dL Normal 6.1-8.1 [facility] rn [place] Sliver Cutter Comment on above: Performed By: #### C BCAD, VITD, LIPD, CMP #### [facility] [address], [place] [id number] Sodium [Moles/Vol] 142 mmol/L Normal 135-146 [facility] Sliver Cutter Comment on above: Performed By: #### C BCAD, VITD, LIPD, CMP #### [facility] [address], [place] [id number] Urea nitrogen [Mass/Vol] 24 mg/dL Normal 7-25 [facility] Sliver Cutter Comment on above: Performed By: #### C BCAD, VITD, LIPD, CMP #### [facility] [address], [place] [id number] Lipid Panelon 04-21-2021 Cholesterol [Mass/Vol] 182 mg/dL Normal 125-200 [facility] Sliver Cutter Comment on above: Result Comment: Low risk < 200mg/dL Borderline risk 201-239 mg/dl High risk > or equal to 240 Performed By: #### C BCAD, VITD, LIPD, CMP #### [facility] [address], [place] [id number] Cholesterol in HDL [Mass/Vol] 62 mg/dL Normal >40 [facility] Sliver Cutter Comment on above: Result Comment: High Cardiovascular Risk HDL <40 mg/dL Low Cardiovascular Risk HDL > or equal to 60 mg/dl Performed By: #### C BCAD, VITD, LIPD, CMP #### [facility] [address], [place] [id number] Cholesterol in LDL [Mass/Vol] 98 mg/dL Normal [facility] Specialist Comment on above: Result Comment: LDL ATP III CLASSIFICATION LDL less than 100 mg/dl Optimal LDL 100-129 mg/dl Near or above optimal LDL 130-159 Borderline high LDL 160-189 High LDL greater than 189 mg/dl Very High Performed By: #### C BCAD, VITD, LIPD, CMP #### [facility] [address], [place] [id number] Cholesterol in VLDL [Mass/Vol] 22 mg/dL Normal [facility] Specialist Comment on above: Performed By: #### C BCAD, VITD, LIPD, CMP #### [facility] [address], [place] [id number] Cholesterol.total/Ch olesterol in HDL [Mass ratio] 3 {ratio} Normal [facility] Specialist Comment on above: Performed By: #### C BCAD, VITD, LIPD, CMP #### [facility] [address], [place] [id number] Triglyceride [Mass/Vol] 108 mg/dL Normal 30-150 [facility] Specialist Comment on above: Result Comment: TRIG ATPIII CLASSIFICATIONS TRIG less than 150 mg/dl Normal TRIG 150-199 mg/dl Borderline High TRIG 200-500 mg/dl High TRIG greather than 500 mg/dl Very High Performed By: #### C BCAD, VITD, LIPD, CMP #### [facility] [address], [place] [id number] Microalbumin (with Creat)on 04-21-2021 mALB <1.2 Low [facility] Specialist Comment on above: Result Comment: Unab le to calculate mALB/Crea ratio, mALB is <1.2 mg/dL mALB reference range not established. Performed By: #### m ALBC #### [facility] [address], [place] [id number] UCREA 183 mg/dL Normal 28-217 [facility] Specialist Comment on above: Performed By: #### m ALBC #### [facility] [address], [place] [id number] Q - URINALYSIS,COMPLETEon Appearance (U) CLEAR Normal CLEAR [place] [facility]utter Comment on above: Order Comment: [facility] performed at: [employer], [facility] [facility], [address] , [address] [place] [address], [address] [place] [address], Vending Machine Collector: Clay Sparrow MD [facility] Date/Time: [facility] Results Received Date/Time: [facility] Reported Date/Time: Performed By: #### 3 4F #### [facility] Default [address] [place] [address] BACTERIA NONE SEEN Normal NONE SEEN [facility] Sliver Cutter Comment on above: Order Comment: [facility] performed at: [employer], [facility] [facility], [address], [address] [place] [address], [address] [place] [address], Vending Machine Collector: Clay Sparrow MD [facility] Date/Time: [facility] Results Received Date/Time: [facility] Reported Date/Time: Performed By: #### 3 4F #### [facility] [address] [place] [address] Bilirubin Ql (U) Negative Normal NEGATIVE [facility] Sliver Cutter Comment on above: Order Comment: [facility] performed at: [employer], [facility] [employer] [facility], [address] , [address] [place] [address], [address] [place] [address], Vending Machine Collector: Clay Sparrow MD [facility] Date/Time: [facility] Results Received Date/Time: [facility] Reported Date/Time: Performed By: #### 3 4F #### [facility] [address] [place] [address] Color (U) YELLOW Normal YELLOW [facility] Sliver Cutter Comment on above: Order Comment: [facility] performed at: [employer], [facility] [facility], [address] , [address] [place] [address], [address] [place] [address], Vending Machine Collector: Clay Sparrow MD [facility] Date/Time: [facility] Results Received Date/Time: [facility] Reported Date/Time: Performed By: #### 3 4F #### [facility] [address] [place] [address] Glucose Ql (U) Negative Normal NEGATIVE [facility] Sliver Cutter Comment on above: Order Comment: [facility] performed at: Q, [facility] [facility], [address] [facility], [address] [place] [address], [address] [place] [address], Vending Machine Collector: Clay Sparrow MD [facility] Date/Time: [facility] Results Received Date/Time: [facility] Reported Date/Time: Performed By: #### 3 4F #### [facility] [address] [place] [address] HYALINE CAST NONE SEEN Normal NONE SEEN [facility] Sliver Cutter Comment on above: Order Comment: [facility] performed at: [facility], [facility] [facility], [address] [place] [address], [address] [place] [address], [address] [place] [address], Vending Machine Collector: Clay Sparrow MD [facility] Date/Time: [facility] Results Received Date/Time: [facility] Reported Date/Time: Performed By: #### 3 4F #### [facility] [address] [place] [address] Ketones Ql (U) Negative Normal NEGATIVE [facility] Sliver Cutter Comment on above: Order Comment: [facility] performed at: [facility], [facility] [facility], [address] [facility], [address] [place] [address], [address] [place] [address], Vending Machine Collector: Clay Sparrow MD [facility] Date/Time: [facility] Results Received Date/Time: [facility] Reported Date/Time: Performed By: #### 3 4F #### [facility] [address] [place] [address] Leukocyte esterase Test strip Ql (U) TRACE Abnormal NEGATIVE [facility] Sliver Cutter Comment on above: Order Comment: [facility] performed at: [employer], [facility], [address] [facility], [address] [place] [address], [address] [place] [address], Vending Machine Collector: Clay Sparrow MD [facility] Date/Time: [facility] Results Received Date/Time: [facility] Reported Date/Time: Performed By: #### 3 4F #### [facility] [address] [place] [address] Nitrite Ql (U) Negative Normal NEGATIVE [facility] Sliver Cutter Comment on above: Order Comment: [facility] performed at: [employer], [facility] [employer] [facility], [address] , [address] [place] [address], [address] [place] [address], Vending Machine Collector: Clay Sparrow MD [facility] Date/Time: [facility] Results Received Date/Time: [facility] Reported Date/Time: Performed By: #### 3 4F #### [facility] [address] [place] [address] OCCULT BLOOD Negative Normal NEGATIVE [facility] Sliver Cutter Comment on above: Order Comment: [facility] performed at: [employer], [facility] [employer], [address] , [address] [place] [address], [address] [place] [address], Vending Machine Collector: Clay Sparrow MD [facility] Date/Time: [facility] Results Received Date/Time: [facility] Reported Date/Time: Performed By: #### 3 4F #### [facility] [address] [place] [address] pH (U) 6.5 [pH] Normal 5.0-8.0 [facility] Sliver Cutter Comment on above: Order Comment: [facility] performed at: [employer], [facility] [employer] [facility], [address] , [address] [place] [address], [address] [place] [address], Vending Machine Collector: Clay Sparrow MD [facility] Date/Time: [facility] Results Received Date/Time: [facility] Reported Date/Time: Performed By: #### 3 4F #### [facility] [address] [place] [address] Protein Ql (U) Negative Normal NEGATIVE [facility] Specialist Comment on above: Order Comment: [facility] performed at: [facility], [facility] [facility], [address] [facility], [address] [place] [address], [address] [place] [address], Vending Machine Collector: Clay Sparrow MD [facility] Date/Time: [facility] Results Received Date/Time: [facility] Reported Date/Time: Performed By: #### 3 4F #### [facility] [address] [place] [address] RBC NONE SEEN Normal < OR = 2 [facility] Sliver Cutter Comment on above: Order Comment: [facility] performed at: [facility], [facility] [facility], [address] [place] [address], [address] [place] [address], [address] [place] [address], Vending Machine Collector: Clay Sparrow MD [facility] Date/Time: [facility] Results Received Date/Time: [facility] Reported Date/Time: Performed By: #### 3 4F #### [facility] [address] [place] [address] Specific gravity (U) [Rel density] 1.025 Normal 1.001-1.035 [facility] Sliver Cutter Comment on above: Order Comment: [facility] performed at: [facility], [facility] [facility], [address] [place] [address], [address] [place] [address], [address] [place] [address], Vending Machine Collector: Clay Sparrow MD [facility] Date/Time: [facility] Results Received Date/Time: [facility] Reported Date/Time: Performed By: #### 3 4F #### [facility] [address] [place] [address] SQUAMOUS EPITHELIAL CELLS 0-5 Normal < OR = 5 [facility] Sliver Cutter Comment on above: Order Comment: [facility] performed at: [facility], [facility] [employer] [facility], [address] [place] [address], [address] [place] [address], [phone], Vending Machine Collector: Clay Sparrow MD [facility] Date/Time: [facility] Results Received Date/Time: [facility] Reported Date/Time: Performed By: #### 3 4F #### [facility] [address] [place] [address] WBC NONE SEEN Normal < OR = 5 [facility] Sliver Cutter Comment on above: Order Comment: [facility] performed at: [facility], [employer] [facility], [address], [address] [place], [address], Vending Machine Collector: Clay Sparrow MD [facility] Date/Time: [facility] Results Received Date/Time: [facility] Reported Date/Time: Performed By: #### 3 4F #### [facility] [address] [place] [address] Vitamin D 25-OHon 04-21-2021 VIT D 25 OH 52 ng/ml Normal >29 [facility] Sliver Cutter Comment on above: Result Comment: Ashley min D Status Deficiency <20 ng/mL Insufficiency 20-29 ng/mL Optimal 30-100 ng/mL Possible Toxicity >=150 ng/mL Performed By: #### C BCAD, VITD, LIPD, CMP #### [facility] [address] [place], [place] [id number] XR KNEE GENERAL 4V AP BOTH/P A BOTH/LAT/MERC LTon 12-04-2020 [facility] XR KNEE POST OP 3V AP/LAT/ME RCHANT LTon 04-01-2020 [facility] XR KNEE GENERAL 4V AP BOTH/P A BOTH/LAT/MERC LTon 12-20-2019 [facility] Basic Metabolic Panlon 12-05 Anion gap [Moles/Vol] 8 mmol/L Low 9-18 [facility] Calcium [Mass/Vol] 6.8 mg/dL Low 8.5-10.2 [facility] Chloride [Moles/Vol] 108 mmol/L High 97-105 [facility] CO2 [Moles/Vol] 20 mmol/L Low 22-30 [facility] Creatinine [Mass/Vol] 1.07 mg/dL High 0.58-0.96 [facility] eGFR- Amer. >60 Normal [facility] GFR/1.73 sq M predicted among non-blacks MDRD (S/P/Bld) [Vol rate/Area] 51 . Normal [facility] Comment on above: Result Comment: eGFR [...] ospital Comment on above: Result Comment: The [place] Diabetes Association (ADA) provides guidance for cutoff [...] Standards of Medical Care in Diabetes 2016, [place] Diabetes Association. Diabetes Care. 2016.39(Suppl 1). Potassium [Moles/Vol] 3.3 mmol/L Low 3.7-5.1 [facility] Sodium [Moles/Vol] 136 mmol/L Normal 136-144 [facility] Urea nitrogen [Mass/Vol] 21 mg/dL Normal 7-21 [facility] CBCon 12-06-2019 Absolute nRBC <0.01 Normal <0.01 [facility] Erythrocyte distribution width (RBC) [Ratio] 12.5 % Normal 11.5-15.0 [facility] Hematocrit (Bld) [Volume fraction] 30.3 % Low 36.0-46.0 [facility] Hemoglobin (Bld) [Mass/Vol] 9.5 g/dL Low 11.5-15.5 [facility] MCH (RBC) [Entitic mass] 30.6 pG Normal 26.0-34.0 [facility] MCHC (RBC) [Mass/Vol] 31.4 g/dL Normal 30.5-36.0 [facility] MCV (RBC) [Entitic vol] 97.7 fL Normal 80.0-100.0 [facility] Platelet mean volume (Bld) [Entitic vol] 10.2 fL Normal 9.0-12.7 [facility] (Bld[facility] [#/Vol] 188 10*3/uL Normal 150-400 [facility] RBC (Bld) [#/Vol] 3.10 10*6/uL Low 3.90-5.20 [facility] WBC (Bld) [#/Vol] 9.31 10*3/uL Normal 3.70-11.00 [facility] NURSING PROGon 12-06-2019 NURSING PROG HNO ID: [id number] Author: Tae (Rn) LOAN Alvarenga Service: Nursing Author Type: Registered Nurse Type: Nursing Progress Note Filed: 12/06/2019 4:24 PM Note Text: Nursing Progress Note Patient Name: Gilda Sorto Patient Location: [facility]/ Daily Note: 0745: awake and sitting up [...] note was completed by: Tae Alvarenga RN [facility] PLAN OF CAREon 12-06-2019 PLAN OF CARE HNO ID: [id number] Author: Carlie Beltre ([employer]) Service: ? Author Type: ? Type: Plan [...] capsule Commonly known as: MACROBID Carlie Beltre ([employer]) PAGER: [email or web address] December 06, 2019 3:10 PM [facility] PROGRESSon 12-06-2019 PROGRESS HNO ID: [id number] Author: Taz Dean Service: Orthopaedic Surgery Author [...] Osteoarthritis of Left Knee Breast Asymmetry Between [place] Breast and Reconstructed Breast S/P Partial Mastectomy, Right History of Breast Cancer Mass of Left Knee Tear of Lateral Meniscus of Left Knee Complex Tear of Lateral Meniscus of Left Knee As Current Injury Medication and Non-Pharmacologic VTE Prophylaxis/Anticoagula nts 12/05/19 1300 pneumatic compression stockings (me,mt) 12/05/19 1300 graduated compression stockings ([place]) VTE Prophylaxis: VTE prophylaxis appropriate POST OPERATIVE COMPLICATIONS: Complicated by: uneventful/none SIGNATURE: Taz Dean DO PATIENT NAME: Gilda Sorto DATE: December 06, 2019 TIME: 9:46 AM PAGER/CONTACT #: NA [phone] [facility] THERAPY [facility] 12-06-2019 THERAPY NT HNO ID: [id number] Author: Jessica (Ot) Simon Service: ? Author Type: Occupational Therapist Type: Therapy (PT/OT/Speech/Resp) Filed: 12/06/2019 3:16 PM Note Text: Occupational Therapy Evaluation SERVICE DATE: 12/06/2019 SERVICE TIME: 1423 to 1500 ROOM: [place] [address] Recommended Discharge Disposition: Home Recommended Discharge Disposition [...] of daily living (ADL) Interventions Provided: Evaluation;Self Assisted Management (16586) $ Evaluation-Low (15196) Billed Units: 1 unit Self Assisted Management (63374) Treatment Minutes: 20 1 unit Skilled Intervention(s): [...] relating to: -functional transfers (use of leg hydraulic blocker to assist surgical leg in/out of bed, [...] of tub or shower seat/bench w/ leg hydraulic blocker, importance of grab bars and not bathing [...] Walker;Shower Bench;Wheelchair;Elevat ed Toilet Seat;Long Handled Shoe Horn;Platform Mill Supervisor Prior Functional Level: Within Functional Limits [...] December 06, 2019 TIME: 3:10 PM Normal [facility] THERAPY NT HNO ID: [id number] Author: Yadira NavasPtElayne Sher Service: Physical Therapy Author Type: Physical Therapist Type: Therapy (PT/OT/Speech/Resp) Filed: 12/06/2019 3:32 PM Note Text: Physical Therapy Treatment SERVICE DATE: 12/06/2019 SERVICE TIME: 1334 to 1402 ROOM: [place] [address] Recommended Discharge Disposition: Outpatient Physical Therapy Anticipated [...] (ADL);Muscle Weakness (generalized) Interventions Provided: Therapeutic Exercise (28871);Gait Training (46365) Therapeutic Exercise (32881) Treatment Minutes: 13 1 unit Skilled Intervention(s): Instruction in therapeutic exercise Verbal and tactile cuing provided for supine HEP Education in importance of changing positions slowly, staying active Gait Training (03562) Treatment Minutes: 15 2 units Skilled Intervention(s): [...] Walker;Shower Bench;Wheelchair;Elevat ed Toilet Seat;Long Handled Shoe Horn;Platform Mill Supervisor Prior Functional Level: Within Functional Limits [...] details for this therapy evaluation/treatment. SIGNATURE: Raymon Owens SPT PATIENT NAME: Gilda Sorto DATE: December 06, 2019 TIME: 2:35 PM [facility] THERAPY NT HNO ID: [id number] Author: Yadira Sher Service: Physical Therapy Author Type: Physical Therapist Type: Therapy (PT/OT/Speech/Resp) Filed: 12/06/2019 12:23 PM Note Text: Physical Therapy Treatment SERVICE DATE: 12/06/2019 SERVICE TIME: 1010 to 1050 ROOM: [place] [address] Recommended Discharge Disposition: Outpatient Physical Therapy Anticipated [...] ess on feet Interventions Provided: Therapeutic Exercise (49080);Gait Training (29276) Therapeutic Exercise (78151) Treatment Minutes: 15 1 unit Skilled Intervention(s): Instruction in therapeutic exercise Verbal and tactile cuing provided for proper HEP completion Education in importance of mobility (see flow sheet for exercises completed) Gait Training (68285) Treatment Minutes: 25 2 units Skilled Intervention(s): [...] DATE: December 06, 2019 TIME: 11:10 AM [facility] ANES POSTPROC EVALon 020 ANES POSTPROC EVAL HNO ID: [id number] Author: Bayron Everett Service: ? Author Type: [...] December 05, 2019 TIME: 1:23 PM CSN: [id number] [facility] ANES PRE-OPon 12-05-2019 ANES PRE-OP HNO ID: [id number] Author: Bayron Everett Service: ? Author Type: [...] December 05, 2019 TIME: 7:11 AM CSN: [id number] [facility] BRIEF OP NOTon 12-05-2019 BRIEF OP NOT HNO ID: [id number] Author: Taz Dean Service: Orthopaedic Surgery Author Type: Physician Type: Brief Op Note Filed: 12/05/2019 10:38 AM Note Text: TOTAL KNEE ARTHROPLASTY BRIEF OPERATIVE / PROCEDURE NOTE LOG ID: [id number] Surgery/Procedure Date: 12/05/2019 Incision/Procedure Start Time: 8:08 AM Incision Close/Procedure End Time: 10:34 AM Surgeon(s)/Proceduralis t(s) and Clinical Manager(s): Surgeon(s) and Role: * Taz Dean - Primary Physician Clinical Manager: Gavin Ballard Procedure(s): Procedure(s) (LRB): ARTHROPLASTY REPLACE JOINT TOTAL KNEE (Left) Anesthesia: Monitored Anesthesia Care with spinal Peripheral Block Type: Saphenous/Adductor Approach: Median parapatellar Findings: Advanced DJD left knee Estimated Blood Loss: 75 mls Specimens: None Complications: None Implant: Implant Name Type Inv. Item Serial No. Software Analyst Lot No. [id number] No. Used Action INSERT PERSONA 6-9 C-D POLYETHYLENE 10MM ARTICULAR POSTERIOR STABILIZED - [id number] Joint - Knee INSERT PERSONA 6-9 C-D POLYETHYLENE 10MM ARTICULAR POSTERIOR STABILIZED [employer] [id number] Left 1 Implanted COMPONENT 29MM ALL POLY PATELLAR PSN - [id number] Joint - Knee COMPONENT 29MM ALL POLY PATELLAR PSN [employer] [id number] Left 1 Implanted COMPONENT PERSONA 6 NARROW COCR FEMORAL CEMENTED POSTERIOR STABILIZE KNEE - [id number] Joint - Knee COMPONENT PERSONA 6 NARROW COCR FEMORAL CEMENTED POSTERIOR STABILIZE KNEE [employer] [id number] Left 1 Implanted BASEPLATE PERSONA 5D D TIVANIUM TIBIAL CEMENTED STEM KNEE LEFT - [id number] Joint BASEPLATE PERSONA 5D D TIVANIUM TIBIAL CEMENTED STEM KNEE LEFT [employer] [id number] Left 1 Implanted CEMENT SIMPLEX P BONE RADIOPAQUE FULL DOSE STERILE - [id number] Cement / Putty CEMENT SIMPLEX P BONE RADIOPAQUE FULL DOSE STERILE STRY/[employer] [id number] Left 1 Implanted Bearing Surface: Fixed Fixation: Cemented SSI Risk Factors: NA Constraint: Posterior Stabilized Other: None Pre-Op/Pre-Procedure Diagnosis: DJD left knee Post-Op/Post-Procedure Diagnosis: DJD left knee Weight Bearing Status: Weight Bearing As Tolerated SIGNATURE: Taz Dean DO PATIENT NAME: Gilda Sorto DATE: December 05, 2019 TIME: 10:36 AM PAGER/CONTACT #: Chloé [facility] CASE MGT INIT Yovani 2019 CASE MGT INIT ISA HNO ID: [id number] Author: Yanna (Rn) LOAN Barriga Service: Care Management Author Type: Registered Nurse Type: Care Mgt Initial Assessment Filed: 12/05/2019 1:53 PM Note Text: CARE MANAGEMENT: ASSESSMENT AND DISCHARGE PLAN SERVICE DATE: December 05, 2019 SERVICE TIME: 1:52 PM PRIMARY CARE PHYSICIAN: Gonsalo Hubbard MD ADMISSION STATUS: Ambulatory Surgery MEDICAL: [employer] MEDICARE 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 Last discharge within 30 days: No Advance Directive: Current Advance Directive: Health Care Power of Basket Sorter;Living Will In Chart: Yes Up To Date [...] Emergency Contact: Fareed Sorto Address: [address] [place] [address] [facility] Mobile Relation: Spouse Supportive Patient [...] Completely I feel financially burdened by my [id number] expenses for my prescription medication:: 0 - Disagree Completely Risk Score: 0 Patient is categorized as: Low risk < 2 Are you interested in bedside delivery of your medications? Yes Is Patient Psychosocially Complex?: No ASSESSMENT AND PLAN: Medical Needs: Medical Needs: None Psychosocial Needs: Psychosocial Needs: None FREEDOM OF CHOICE EXPLAINED: [place] of Choice Given: No Reason Not Given: No placements necessary POTENTIAL TRANSITION PLANS Outpatient Therapy Patient from home with spouse. Has equipment. Has OP PT on 12/09 at 11:45 in [place]. SIGNATURE: Yanna Barriga RN PATIENT NAME: Gilda Sorto DATE: December 05, 2019 TIME: 1:52 PM PAGER/CONTACT #: [phone] [facility] NURSING PROGon 12-05-2019 NURSING PROG HNO ID: [id number] Author: Ekaterina NavasRn) LOAN Erickson Service: Nursing Author Type: Registered Nurse Type: Nursing Progress Note Filed: 12/05/2019 12:58 PM Note Text: Nursing Progress Note Patient Name: Gilda Sorto Patient Location: AV Surgery/AV Surgery Daily Note: Patient arrived in room 510 via bed transport. Patient alert and oriented x 3. This note was completed by: Ekaterina Erickson RN [facility] OPERATIVE NOon 12-05-2019 OPERATIVE NO HNO ID: [id number] Author: Taz Dean Service: Orthopaedic Surgery Author Type: Physician Type: Operative Report Filed: 12/05/2019 8:42 PM Note Text: [facility] OPERATIVE REPORT PATIENT NAME: Gilda Sorto AGE: [age] year old SEX: female LOG ID: [id number] SURGERY DATE: 12/05/2019 SURGEON: Taz Dean D.O. CLAIMS COUNSEL: Gavin Ballard PA-C, her role in the [...] position, the tibia was prepared using the VIOSOstack reamer and keel?punch.? A trial tibial tray [...] patellar bone calipers?were? used?to measure the patient's ivanof bay patella and guide the amount of?bone resection needed.? Following this, the articular side of the patella was? resected?with a?bone saw, taking the appropriate amount of bone from the patella.??The? patellar sizing guide was then positioned?and?the patient?matched a 29-mm patellar component.? The appropriate size patellar guide was?positioned and the 3 instructor pilot holes were drilled. The 29-mm trial [...] followed by interrupted #1?Vicryl suture in a [id number] alternating fashion, sealing off the remaining portions [...] time.? Patient was then transferred to a the orthopedic specialty hospital, and taken to?the recovery room in stable condition having?tolerated the?procedure well.?? Sponge and needle counts were correct.? The case was? clean and? elective.? There were no complications. Incision Start: 8:08 AM Incision Stop: 10:34 AM SIGNATURE: Taz Dean DO DATE: December 05, 2019 TIME: 8:33 PM [facility] PT EDon 12-05-2019 PT ED HNO ID: [id number] Author: Jazz NavasRn) LOAN Hilario Service: ? Author Type: Registered Nurse Type: Patient Education Filed: 12/05/2019 6:55 AM Note Text: PRE OP LEARNING ASSESSMENT PROCEDURE/SURGERY: left TKR READINESS TO LEARN COGNITIVE ABILITY: Alert and oriented MOTIVATION TO LEARN: Eager FAMILY SUPPORT: None - Unavailable/disinterest ed PATIENT LEARNS BEST BY: Individual Instruction FACTORS AFFECTING LEARNING: None PHYSICAL LIMITATIONS AFFECTING LEARNING: None [facility] THERAPY NTon 12-05-2019 THERAPY NT HNO ID: [id number] Author: Yadira NavasPt) Christos Service: Physical Therapy Author Type: Physical Therapist Type: Therapy (PT/OT/Speech/Resp) Filed: 12/05/2019 5:45 PM Note Text: Physical Therapy Evaluation SERVICE DATE: 12/05/2019 SERVICE TIME: to 1703 ROOM: [place] [address] Recommended Discharge Disposition: Outpatient Physical Therapy Anticipated [...] on feet;Difficulty walking-musculoskeletal Interventions Provided: Evaluation;Gait Training (17385);Therapeutic Exercise (13439) $ Evaluation-Low (99040) Billed Units: 1 unit Therapeutic Exercise (56519) Treatment Minutes: 10 1 unit Skilled Intervention(s): Instruction in therapeutic exercise Verbal and tactile cuing provided for proper HEP completion Education in knee precautions and pain science Gait Training (54595) Treatment Minutes: 13 1 unit Skilled Intervention(s): [...] Toilet/Commode Gait Stairs Curb Step Car Transfer -M: 5: Standing (1 or more minutes) I reviewed and agree with the documentation corresponding to this therapy visit. SIGNATURE: Yadira Sher PT DATE: December 05, 2019 TIME: 5:45 PM Please see discipline specific clinical documentation flowsheet for complete details for this therapy evaluation/treatment. SIGNATURE: Raymon Owens, DAVID PATIENT NAME: Gilda Sorto DATE: December 05, 2019 TIME: 5:30 PM [facility] Type and Screenon 12-05-2019 ABO/RH(D) Positive [facility] CNPNon 12-04-2019 CNPN Telephone (AVPRAD) GILDA SORTO ([id number]) 1950 F Date Time Provider Department 12/04/19 GAVIN BALLARD) BERNARAD During your visit today, we recorded the [...] at home after michaels virus test. Gavin aBllard PA-C Allergies As of Date: 12/04/2019 Noted [...] left knee [M17.12] 10/13/2017 Breast asymmetry between ivanof bay breast and jennifer*12/02/2017 More... S/P partial mastectomy, right [Z90.11] 12/02/2017 More... History of breast cancer [Z85.3] 12/02/2017 More... Mass of left knee [R22.42] 01/05/2018 Tear of lateral meniscus of left knee [S83.282A]01/06/2018 More... Complex tear of lateral meniscus of left knee a*01/06/2018 Encounter Status:Closed by GAVIN BALLARD on 12/04/19 [facility] NURSING PROGon 11-26-2019 NURSING PROG HNO ID: [id number] Author: Stephanie Cuevas (Rn) Manny RN Service: [...] Bryant RN November 30, 2019 10:58 AM [facility] HOSPon 11-01-2019 HOSP Patient:Gilda Sorto MRN: [...] of left knee [M17.12] Breast asymmetry between ivanof bay breast and reconstructed breast [N65.1] S/P partial [...] 44.6 % 11/26/2019 46.0 36.0 Progress Notes (AV PROVIDER ADULT): Gavin Ballard PA-C 12/04/2019 12:51 [...] virus test. Gavin Ballard PA-C Progress Notes ([facility] [place] PROV ADULT): Ashleigh Alex APRN.AMARI 11/28/2019 8:45 AM Signed Please call patient and advise that on pre-op labs UA showed leukocytes and urine culture revealed possible contaimination Due to surgery being 12/04- will treat with low dose antibiotics for possible infection Rx for Macrobid sent to pharmacy. Advise to start AMBER and take BID for 7 days Thank you Ashleigh Alex APRN.[facility] Na Beltre LPN 11/28/2019 8:56 AM Signed Patient aware. Pharmacy verified. Will package pick up and start first does this am. Na Beltre LPN [facility] Vital Signs Date Time Vital Sign Value Performing Clinician Dexter redman 06-30-2023 09:46-0500 Body mass index (BMI) [Ratio] 35.07 kg/m2 Samia Warren COMMUNITY HEALTH WORKER Work Phone: [facility] 06-30-2023 09:46-0500 Body temperature 97.11 [degF] Samia Warren COMMUNITY HEALTH WORKER Work Phone: [facility] 06-30-2023 09:46-0500 Body weight 89.81 kg Samia Warren COMMUNITY HEALTH WORKER Work Phone: [facility] 06-30-2023 09:46-0500 Diastolic blood pressure 80 mm[Hg] Samia Warren COMMUNITY HEALTH WORKER Work Phone: [facility] 06-30-2023 09:46-0500 Heart rate 96 /min Samia Warren COMMUNITY HEALTH WORKER Work Phone: [facility] 06-30-2023 09:46-0500 SaO2% (BldA) [Mass fraction] 97 % Samia Warren COMMUNITY HEALTH WORKER Work Phone: [facility] 06-30-2023 09:46-0500 Systolic blood pressure 128 mm[Hg] Samia Warren COMMUNITY HEALTH WORKER Work Phone: [facility] 04-16-2022 11:52-0500 Body temperature 98.1 [degF] Sharon Saldivar EMPLOYMENT REPRESENTATIVE.WRECKING SUPERVISOR Work Phone: [facility] 04-16-2022 11:52-0500 Diastolic blood pressure 60 mm[Hg] Sharon Saldivar EMPLOYMENT REPRESENTATIVE.WRECKING SUPERVISOR Work Phone: [facility] 04-16-2022 11:52-0500 Heart rate 85 /min Sharon Saldivar EMPLOYMENT REPRESENTATIVE.WRECKING SUPERVISOR Work Phone: [facility] 04-16-2022 11:52-0500 Respiratory rate 20 /min Sharon Saldivar EMPLOYMENT REPRESENTATIVE.WRECKING SUPERVISOR Work Phone: [facility] 04-16-2022 11:52-0500 SaO2% (BldA) [Mass fraction] 100 % Sharon Saldivar EMPLOYMENT REPRESENTATIVE.WRECKING SUPERVISOR Work Phone: [facility] 04-16-2022 11:52-0500 Systolic blood pressure 117 mm[Hg] Sharon Saldivar EMPLOYMENT REPRESENTATIVE.WRECKING SUPERVISOR Work Phone: [facility] Encounters Encounter Date Encounter Type Care Provider Facility Start: 02-21-2024 End: 02-21-2024 Emergency department patient visit Gonsalo [place] Facility:[facility] Start: 01-06-2024 End: 01-06-2024 ambulatory GRAZYNA R RISALITI Not Available Start: 12-28-2023 End: 12-28-2023 ambulatory GRAZYNA R RISALITI Not Available Start: 09-26-2023 End: 09-26-2023 ambulatory [facility] Not Available Start: 06-30-2023 End: 06-30-2023 Office outpatient visit 15 minutes Samia Warren COMMUNITY HEALTH WORKER Work Phone: [facility] Comment on above: Viral upper respirat ory tract infection (Primary Dx); Cough, unspecified type; Insomnia, unspecified type; Morbid obesity ([facility]); History of breast cancer Start: 06-30-2023 End: 06-30-2023 ambulatory GONSALO HUBBARD Not Available Start: 04-26-2023 End: 04-26-2023 ambulatory GONSALO HUBBARD Not Available Start: 04-19-2023 End: 04-19-2023 ambulatory Gonsalo Hubbard Facility:[facility] Start: 04-12-2023 End: 04-12-2023 ambulatory KAYLA ESPERANZA Facility:[facility] Start: 04-12-2023 End: 04-12-2023 Subsequent hospital visit by physician Xr [facility] Work Phone: Radiology Comment on above: Pain [R52] Start: 05-04-2022 ambulatory JALEN SMITHMICHELLEVera Facility :UNKNOWN Start: 04-16-2022 End: 04-16-2022 ambulatory GONSALO HUBBARD Facility:[facility] Start: 04-16-2022 Documentation procedure Mammog samantha Coordinator [facility] Start: 04-16-2022 Letter encounter Mammography Coordinator [facility] Department Start: 04-16-2022 End: 04-16-2022 ambulatory Sharon Saldivar APRN.WRECKING SUPERVISOR Work Phone: Hematology/Oncology Comment on above: Encounter for screen ing mammogram for breast cancer (Primary Dx); Stage 1 breast cancer, ER-, left (HCC) Start: 04-16-2022 End: 04-16-2022 Patient encounter procedure Sharon Saldivar APRN.WRECKING SUPERVISOR Work Phone: [facility] Start: 04-16-2022 End: 04-16-2022 Subsequent hospital visit by physician [facility] Work Phone: Mammography Comment on above: Encounter for screen ing mammogram for breast cancer [Z12.31] Start: 01-21-2022 ambulatory JALEN GOBEMICHELLEE Facility :UNKNOWN Start: 01-12-2022 End: 01-12-2022 ambulatory JALEN GOBEZIE Facility:UNKNOWN Start: 12-15-2021 End: 12-15-2021 ambulatory JALEN GOBEZIE Facility:UNKNOWN Start: 12-09-2021 ambulatory JALEN GOBEZIE Facility :UNKNOWN Start: 12-09-2021 Encounter for other preprocedural examination JALEN DELAROSA Facility:UNKNOWN Start: 11-25-2021 End: 11-25-2021 Subsequent hospital visit by physician [facility] F30 (I-Stat) Work Phone: Radiology Start: 11-20-2021 Orders Only Sharon Shirley son EMPLOYMENT REPRESENTATIVE.WRECKING SUPERVISOR Work Phone: Hematology/Oncology Comment on above: [...] 12-04-2020 Subsequent hospital visit by physician Xr [facility] [employer] General Radiology Comment on above: S/P total knee arthr oplasty, left [Z96.652] Start: 04-01-2020 End: 04-01-2020 Subsequent hospital visit by physician Xr [facility] Work Phone: Radiology Comment on above: post op Start: 12-20-2019 End: 12-20-2019 Subsequent hospital visit by physician Xr [facility] [employer] General Radiology Comment on above: Primary osteoarthrit is of left knee [M17.12] Procedures Date Procedure Procedure Detail Performing Clinician Start: 06-30-2023 STATUS COVID-19/FLU Obie tlin E Briana COMMUNITY HEALTH WORKER Work Phone: Start: 04-12-2023 Radex hand minimum 3 views Kayla Mata MD Work Phone: Start: 04-16-2022 JAKE SCREENING W JOE Saldivar EMPLOYMENT REPRESENTATIVE.WRECKING SUPERVISOR Work Phone: Start: 04-16-2022 Mammography Sharon Hernandez EMPLOYMENT REPRESENTATIVE.WRECKING SUPERVISOR Work Phone: Start: 11-25-2021 Ct angio [...] Radiologic examinati on knee 3 views Gavin GOODWIN-Angeli Work Phone: Start: 12-20-2019 Radiologic exam knee [...] Start: 12-09-2024 Diabetes Screening Diabetes Screenin g [facility] Start: 04-26-2024 Medicare Annual Well ness (AWV) Medicare Annual Wellness (AWV) [facility] Start: 04-24-2024 End: 04-24-2024 Patient encounter procedure 04/24/2024 1:00 PM EST Office Visit [facility] [address] [place] [address] Gonsalo Hubbard MD [address] [place] [address] [facility] Start: 01-15-2024 Covid-19 Vaccine ( season) Covid-19 Vaccine ( season) [facility] Start: 01-15-2024 Influenza vaccination Influenza Vacc ine (#1) [facility] Start: 11-25-2023 DIABETES SCREEN [facility]EN [facility] Start: 11-25-2023 Diabetes Screening Diabetes Screenin g [facility] Start: 05-16-2023 Advance Directive Discussion Advance Directive Discussion [facility] Start: 04-16-2023 BP CONTROLLED (<130/80) BP CONTROLLE D (<130/80) [facility] Start: 04-16-2023 End: 05-16-2023 JAKE SCREENING JAKE SCREENING Radiology Routine Encounter for screening mammogram for breast cancer Expected: 04/16/2023, Expires: 05/16/2023 [facility] Work Phone: Comment on above: Expected: 04/16/2023 , Expires: 05/16/2023 Start: 04-16-2023 Mammography [facility] Start: 04-16-2023 Screening for malign ant neoplasm of breast Mammogram Screening [facility] Start: 01-14-2023 Covid-19 Vaccine ( season) Covid-19 Vaccine ( season) [facility] Start: 01-14-2023 Influenza vaccination Influenza Vacc ine (#1) [facility] Start: 05-16-2022 Advance Directive Discussion Advance Directive Discussion [facility] Start: 05-16-2022 Depression Assessment Depression Ass essment [facility] Start: 01-14-2022 Influenza vaccination INFLUENZA (#1) [facility] Start: 11-24-2021 Mammography MAMMOGRAM [facility] Start: 11-21-2021 Adult depression screening assessment DEPRESSION SCREENING [facility] Start: 09-23-2021 End: 11-23-2021 CREATININE BLD CREATININE BLD Lab Routine Renal artery aneurysm (HCC) Expected: 09/23/2021, Expires: 11/23/2021 [facility] Work Phone: Comment on above: Expected: 09/23/2021 , Expires: 11/23/2021 Start: 08-08-2021 COVID-19 VACCINE (3 - Booster for Moderna series) COVID-19 VACCINE (3 - Booster for Moderna series) [facility] Start: 07-11-2021 COVID-19 VACCINE (4 - Booster for Moderna series) COVID-19 VACCINE (4 - Booster for Moderna series) [facility] Start: 05-16-2021 ADVANCE DIRECTIVE DISCUSSION ADVANCE DIRECTIVE DISCUSSION [facility] Start: 05-16-2021 DEPRESSION ASSESSMENT DEPRESSION ASS ESSMENT [facility] Start: 09-06-2017 Lipid 1996 panel - S compa or Plasma Lipid Screening [facility] Start: 09-06-2017 Lipid panel Lipid Screening [facility] Start: 09-06-2017 LIPID SCREEN LIPID SCREEN [facility] Start: 2015 BONE DENSITY BONE DENSITY [facility] Start: 2015 Bone Density Screening Bone Density Screening [facility] Start: 2015 PNEUMOCOCCAL: 65+ (1 - PCV) PNEUMOCOCCAL: 65+ (1 - PCV) [facility] Start: 2015 PNEUMOVAX AGE 65 AND OVER WITH 5YR LOOKBACK (#1) PNEUMOVAX AGE 65 AND OVER WITH 5YR LOOKBACK (#1) [facility] Start: 2015 Screening for osteoporosis Bone Density Screening [facility] Start: 11-08-2014 Urine microalbumin profile DTaP,Tdap,Td Vaccine (1 - Tdap) [facility] Start: 2010 RSV Vaccine (1 - 1-d ose 60+ series) RSV Vaccine (1 - 1-dose 60+ series) [facility] Start: 2000 SHINGRIX VACCINE (1 of 2) SHINGRIX VACCINE (1 of 2) [facility] Start: 1995 COLOGUARD (FIT-DNA) COLOGUARD (FIT-D NA) [facility] Start: 1995 Colonoscopy COLONOSCOPY [facility] Start: 1995 COLORECTAL CANCER SCREENING COLORECTAL CANCER SCREENING [facility] Start: [address] COLONOGRAPHY [facility] Start: 1995 FECAL OCCULT BLOOD FECAL OCCULT BLOO D [facility] Start: 1995 Screening for malign ant neoplasm of colon [facility] Start: 1995 SIGMOIDOSCOPY SIGMOIDOSCOPY [facility] Start: 1969 Urine microalbumin profile DTAP,TDAP,TD (1 - Tdap) [facility] Start: 1968 ANNUAL PCP TEAM BEVERAGE SALES CONSULTANT [place] DISEASE VISIT ANNUAL PCP TEAM CHRONIC DISEASE VISIT [facility] Start: 1968 Anxiety Screening Anxiety Screening [facility] Start: 1968 BP CONTROLLED (<130/80) BP CONTROLLE D (<130/80) [facility] Start: 1968 Depression Screening Depression Scre ening [facility] Start: 1968 HEPATITIS C SCREENING HEPATITIS C [facility] Start: 1968 Hepatitis C screening Hepatitis C [facility] Start: 1950 Screening for malign ant neoplasm of colon [facility] End: 10-23-2022 Ct angio abd&plvis cntrst mtrl w/wo cntrst img CTA ABD/PEL WO/W IVCON Radiology Routine Renal artery aneurysm (HCC) 1 Occurrences starting 09/23/2021 until 10/23/2022 [facility] Work Phone: Comment on above: 1 Occurrences starti ng 09/23/2021 until 10/23/2022 End: 12-20-2022 Screening mammography bi 2-view breast inc cad JAKE SCREENING Radiology Routine Encounter for screening mammogram for breast cancer 1 Occurrences starting 11/20/2021 until 12/20/2022 [facility] Work Phone: Comment on above: 1 Occurrences starti ng 11/20/2021 until 12/20/2022 [facility] Immunizations Immunization Date Immunization Notes Care Provider Sugey hogue 03-19-2023 Influenza, Seasonal, Quadrivalent, Adjuvanted Samia Warren COMMUNITY HEALTH WORKER Work Phone: [facility] 03-19-2023 influenza virus vaccine, unspecified formulation [facility] [place] Work Phone: [facility] 03-30-2022 SARS-COV-2 (COVID-19 ) vaccine, mRNA, spike protein, LNP, bivalent, PF Samia Warren COMMUNITY HEALTH WORKER Work Phone: [facility] 03-12-2022 Influenza, High-dose Seasonal, Quadrivalent, Preservative Free Samia Warren NP Work Phone: [facility] 03-12-2022 influenza virus vaccine, unspecified formulation Xr Commons [facility] 02-12-2021 Influenza, High-dose Seasonal, Quadrivalent, Preservative Free Samia Chadd-Maria Esther COMMUNITY HEALTH WORKER Work Phone: [facility] 07-21-2020 COVID-19 vaccine, fu ll dose (MODERNA) Ct (I-Stat) Work Phone: [facility] 06-23-2020 COVID-19 vaccine, fu ll dose (MODERNA) Ct (I-Stat) Work Phone: [facility] 01-17-2020 influenza, high dose seasonal, preservative-free Samia Chadd-Maria Esther COMMUNITY HEALTH WORKER Work Phone: [facility] 12-24-2019 zoster vaccine recombinant Samia Chadd-Maria Esther COMMUNITY HEALTH WORKER Work Phone: [facility] 10-16-2019 zoster vaccine recombinant Samia Chadd-Maria Esther COMMUNITY HEALTH WORKER Work Phone: [facility] 03-19-2019 pneumococcal polysaccharide vaccine, 23 valent Samia Chadd-Maria Esther COMMUNITY HEALTH WORKER Work Phone: [facility] 03-01-2017 pneumococcal polysaccharide vaccine, 23 valent Smaia Chadd-Maria Esther COMMUNITY HEALTH WORKER Work Phone: [facility] 02-13-2017 influenza, injectabl e, quadrivalent, preservative free Samia Chadd-Maria Esther COMMUNITY HEALTH WORKER Work Phone: [facility] 12-06-2016 hepatitis A and hepatitis B vaccine Samia Chadd-Maria Esther COMMUNITY HEALTH WORKER Work Phone: [facility] 05-28-2016 hepatitis A and hepatitis B vaccine Samia Chadd-Maria Esther COMMUNITY HEALTH WORKER Work Phone: [facility] 04-27-2016 hepatitis A and hepatitis B vaccine Samia Chadd-Maria Esther COMMUNITY HEALTH WORKER Work Phone: [facility] 04-27-2016 typhoid capsular polysaccharide vaccine Samia Chadd-Maria Esther COMMUNITY HEALTH WORKER Work Phone: [facility] 03-24-2015 pneumococcal conjuga te vaccine, 13 valent Samia Warren COMMUNITY HEALTH WORKER Work Phone: [facility] 03-20-2015 influenza, injectabl e, quadrivalent, preservative free Samia Warren COMMUNITY HEALTH WORKER Work Phone: [facility] 11-07-2014 tetanus and diphther ia toxoids, adsorbed, preservative free, for adult use (2 Lf of tetanus toxoid and 2 Lf of diphtheria toxoid) Samia Warren COMMUNITY HEALTH WORKER Work Phone: [facility] 01-08-2013 zoster vaccine, live Samia Warren COMMUNITY HEALTH WORKER Work Phone: [facility] Payers Date Payer Category Payer Self-pay 2021 Medicare AETNA MEDICARE A ETNA MEDICARE PPO [id number] 2021-Present [phone] [address] [place] [address] O [id number] 2021 Private Health Insurance 101 [id number] 2019 Medicare AETNA MEDICARE A ETNA MEDICARE PPO [id number] 2019-Present [phone] [address] [place] [address] PPO [id number] 2019 Medicare [id number] 1950 Unknown [id number] 1950 Unknown [id number] 1950 Unknown [id number] 93 1950 Unknown [id number] 93 1950 Unknown [id number] 93 1950 Unknown [id number] 259 1950 Unknown [id number] 259 1950 Unknown [id number] 259 1950 Unknown [id number] 259 1950 Unknown [id number] 259 Unknown [id number] 31 Unknown [id number] 31 Social History Date Type Detail Facility Start: 05-01-2012 End: 04-12-2023 Tobacco smoking status NHIS Never smoked tobacco [facility] Start: 11-24-2020 End: 04-12-2023 Alcohol intake Current drinker of alcohol (finding) [facility] Start: 11-26-2019 End: 12-05-2019 History SDOH Alcohol Frequency 5 [facility] Start: 11-26-2019 End: 12-05-2019 History SDOH Alcohol Std Drinks 1 [facility] Start: 11-26-2019 History SDOH Alcohol Comment A GLASS OF WINE ALMOST EVERY NIGHT BEFORE BED [facility] Start: 12-05-2019 History SDOH Transport Med 2 [place] [facility] Start: 1950 Sex Assigned At Not on file [facility] Start: 09-12-2021 End: 09-22-2021 Exposure to SARS-CoV-2 (event) Unable to assess [facility] Start: 11-20-2019 End: 04-16-2022 Exposure to SARS-CoV-2 (event) Not sure [facility] Start: 05-01-2012 End: 04-12-2023 Tobacco use and exposure Smokeless tobacco non-user [facility] Start: 11-26-2019 End: 04-12-2023 History of Social function [facility] lois Work Phone: Start: 11-26-2019 End: 04-12-2023 Alcohol Use Disorder Identification Test - Consumption [AUDIT-C] [facility] Work Phone: How often to you hav e a drink containing alcohol? 4 or more times a week [facility] Work Phone: How many standard dr inks containing alcohol do you have on a typical day? 1 or 2 [facility] Work Phone: How often do you hav e 6 or more drinks on 1 occasion? Never [facility] Work Phone: How hard is it for y ou to pay for the very basics like food, housing, medical care, and heating Not hard at all [facility] (I/We) worried kev figueroa (my/our) food would run out before (I/we) got money to buy more. Never true [facility] Start: 06-30-2023 Alcohol intake Ex-drinker (finding) [facility] Start: 01-15-2023 Alcohol Comment caffeine: 1-2 cups per day of coffee [facility] Start: 1950 Sex Assigned At Female [facility] Start: 12-07-2022 Gender identity Identifies as female gender (finding) [facility] Medical Equipment Procedure Code Equipment Code Equipment Origin al Text Equipment Identifier Dates Cement Simplex P Bone Radiopaque Full Dose Sterile - [id number] Start: 12-05-2019 [place] Cv 6x6in Thk1.65mm Ptfe - [id number] Start: 09-12-2012 Insert Persona 6 -9 C-D Polyethylene 10mm Articular Posterior Stabilized - [id number] Start: 12-05-2019 Component 29mm A ll Poly Patellar Psn - [id number] Start: 12-05-2019 Component Person a 6 Narrow Cocr Femoral Cemented Posterior Stabilize Knee - [id number] Start: 12-05-2019 Baseplate Person a 5d D Tivanium Tibial Cemented Stem Knee Left - [id number] Start: 12-05-2019 Clinical Notes 12-20-2019 to 06-30-2023 Samia Warren NP - 06/30/2023 9:45 AM Micheal Saldivar APRN.AMARI - 04/16/2022 12:30 PM Alba Leblanc MA - 04/16/2022 11:51 AM Violette Flood, (R) - 04/16/2022 11:10 AM EST Note Date [...] 12/02/2017 Added automatically from request for surgery [id number] Tear of lateral meniscus of knee 01/06/2018 Added automatically from request for surgery [id number] Tonsillitis REVIEW OF SYMPTOMS: Review of Systems [...] follow-ups on file. documented in this encounter [facility] 04-12-2023 Note HNO ID: [id number] Author: Kayla Mata MD Service: ? Author Type: Physician Type: Progress Notes Filed: 04/12/2023 4:51 PM Note Text: PLASTIC SURGERY DEPARTMENT [facility] Hand Surgery Note [x] New referred by [...] What........... Reason:........... Upp (more content not included)... [facility] 04-16-2022 Note HNO ID: [id number] Author: Sharon Saldivar APRN.WRECKING SUPERVISOR Service: ? Author Type: Nurse Practitioner [...] which included preparing to see the patient, [id number] patient care, completing clinical documentation, performing a medically appropriate examination, counseling and educating the patient/family/caregiver, ordering medications, tests, or procedures, communicating with other HCPs (not separately reported), independently interpreting results (not separately reported), communicating results to the patient/family/caregiver, and care coordination (not separately reported). Sharon Saldivar APRN.[facility] 04-16-2022 Note HNO ID: [id number] Author: RT Mario(R) Service: ? Author Type: [...] RT Mario(R) April 16, 2022 11:39 AM [facility] 04-16-2022 History of Present illness Narrative [...] which included preparing to see the patient, [id number] patient care, completing clinical documentation, performing a medically appropriate examination, counseling and educating the patient/family/caregiver, ordering medications, tests, or procedures, communicating with other HCPs (not separately reported), independently interpreting results (not separately reported), communicating results to the patient/family/caregiver, and care coordination (not separately reported). Sharon Saldivar APRN.CNP documented in this encounter [facility] 04-16-2022 Nurse Note Additional intake questions: Has the patient had fever, nausea, vomiting, diarrhea, constipation, fatigue for > 1 week? No Does the patient have a decreased appetite? No Does patient want to see a Cutter Operator Helper? No (yes to any of above refer patient to schedulers for dietitian appointment) ) Does patient have any new or increased numbness or tingling of extremities? No Is patient interested in fertility information? No Does patient need any prescription refills? No Does patient have an advanced directive in place? Yes, copies are in [facility] documented in this encounter [facility] 04-16-2022 Miscellaneous Notes April 16, 2022 PID: [id number] Gilda Sorto [address] [place] [address] Dear Ms. Sorto, We are pleased to [...] report will be kept on file at [facility] as part of your permanent medical record and are available for your continuing care. Thank you for allowing us to help in meeting your health care needs. Sincerely, Dr. Perez Interpreting Radiologist [facility] (Normal over 40) documented in this encounter [facility] 04-16-2022 History of Present illness Narrative [...] 2022 11:39 AM documented in this encounter [facility] 11-25-2021 History of Present illness Narrative [...] TIME: 12:06 PM documented in this encounter [facility] 09-21-2021 Miscellaneous Notes Mrs Sorto called and she would like to schedule her yearly follow up appointment with DR. Ramirez [place] and cell number: [phone] Nima Boggs Wilkinson documented in this encounter [facility] 04-29-2021 Note HISTORY: Bone densit y [...] RECOMMENDED Report reported and signed by Gonsalo Alavrez on 04/29/2021 1247 [facility]utter 04-01-2020 History of Present illness Narrative Radiology [...] 2020 1:04 PM documented in this encounter [facility] 12-20-2019 History of Present illness Narrative [...] 2019 12:45 PM documented in this encounter [facility] Evaluation note Diagnosis Renal artery aneurysm (HCC)- Primary Aneurysm of renal artery Abdominal aortic aneurysm without rupture (HCC) Abdominal aneurysm without mention of rupture [facility] Diagnosis Encounter for screening mammogram for breast cancer- Primary [facility] Diagnosis Renal artery aneurysm (HCC) Aneurysm of renal artery [facility] Diagnosis Encounter for screening mammogram for breast cancer- Primary Stage 1 breast cancer, ER-, left (HCC) [facility] Encounter for screening mammogram for breast cancer [facility] Diagnosis S/P TKR (total knee replacement), left [facility] Diagnosis Primary osteoarthritis of left knee Primary localized osteoarthrosis, lower leg [facility]* Diagnosis S/P total knee arthroplasty, left [facility] Diagnosis Viral upper respiratory tract infection- Primary Acute upper respiratory infections of unspecified site Cough, unspecified type Insomnia, unspecified type Morbid obesity (CMS/HCC) Morbid obesity History of breast cancer Personal history of malignant neoplasm of breast documented in this encounter [facility]* Diagnosis Preop examination- Primary Preoperative examination, unspecified Primary osteoarthritis of left knee Primary localized osteoarthrosis, lower leg Renal artery aneurysm (HCC) Aneurysm of renal artery Essential hypertension Unspecified essential hypertension History of breast cancer Personal history of malignant neoplasm of breast Pain Generalized pain documented in this encounter [facility] for referral (narrative)* Diagnostic Procedure Only (Routine) - Pending Review Specialty Diagnoses / Procedures Referred By Elisha tang Referred To Contact BR IMAGING Diagnoses Encounter for screening mammogram for breast cancer Procedures JAKE SCREENING SCREENING MAMMOGRAPHY BI 2-VIEW BREAST INC Sharon Gallagher APRN.WRECKING SUPERVISOR [address] [place] [id number] [place] [address] Referral ID Status Reason Start Date Expiration Date Visits Requested Visits Authorized [id number] Pending Review Auto-Generat ed Referral 11/20/2021 12/20/2022 1 1 [facility] for referral (narrative)* Diagnostic Procedure Only (Routine) - Pending Review Specialty Diagnoses / Procedures Referred By Elisha tang Referred To Contact BR IMAGING Diagnoses Encounter for screening mammogram for breast cancer Procedures JAKE SCREENING SCREENING MAMMOGRAPHY BI 2-VIEW BREAST INC Sharon Gallagher APRN.WRECKING SUPERVISOR [address] [address] [place] [address] Referral ID Status Reason Start Date Expiration Date Visits Requested Visits Authorized [id number] Pending Review Auto-Generat ed Referral 04/16/2023 05/16/2023 1 1 [facility] Diagnostic Procedure Only (Routine) - Closed Specialty Diagnoses / Procedures Referred By Contac t Referred To Contact XR IMAGING Diagnoses Pain Procedures XR WRIST GENERAL 3V PA/LAT/OBL BILATERAL RADEX WRIST COMPLETE MINIMUM 3 VIEWS Kayla Mata MD [address] [place] [address] [place] [address] Referral ID Status Reason Start Date Expiration Date V isits Requested Visits Authorized [id number] Closed Auto-Generate d Referral 03/21/2023 04/19/2024 1 1 * Diagnostic Procedure Only (Routine) - Closed Specialty Diagnoses / Procedures Referred By Contella t Referred To Contact XR IMAGING Diagnoses Pain Procedures XR HAND GENERAL 3V PA/LAT/OBL BILATERAL RADEX HAND MINIMUM 3 VIEWS Kalya Mata MD [address] [place] [address] [place] [address] Referral ID Status Reason Start Date Expiration Date V isits Requested Visits Authorized [id number] Closed Auto-Generate d Referral 03/21/2023 04/19/2024 1 1 [facility] Summary Purpose Family History No Family History Records FoundNo Family History Records FoundNo Family History Records FoundNo Family History Records FoundNo Family History Records FoundNo Family History Records Found Advance Directives No Advanced Directives Records FoundDocuments on File Type Date 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 Advance Directive(s) Advance Directive(s) 12/05/2019 6:09 AM Advance Directive(s) 04/20/2018 10:36 AM Advance Directive(s) 04/12/2018 2:54 PM Advance Directive(s) 09/18/2012 9:11 PM Documents on File Type Date 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 Advance Directive(s) Advance Directive(s) 12/05/2019 6:09 AM Advance Directive(s) 04/20/2018 10:36 AM Advance Directive(s) 04/12/2018 2:54 PM Advance Directive(s) 09/18/2012 9:11 PM Documents on File Type Date 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 Note HNO ID: [id number] Author: Melissa Mccarthy Service: ? Author Type: Nurse Medical Assisting Program Director Type: Anesthesia Procedure Notes Filed: 12/05/2019 7:44 [...] (more content not included)... Note HNO ID: [id number] Author: Melissa Mccarthy Service: ? Author Type: Nurse Medical Assisting Program Director Type: Anesthesia Procedure Notes Filed: 12/05/2019 7:45 AM Note Text: ANESTHESIOLOGY PROCEDURE NOTE Spinal Block General Information Procedure Start Time/Medication Administration: 12/05/2019 7:39 AM Patient location during procedure: ORTimeout Performed Pre-procedure: timeout performed Consent Obtained: Yes (via Surgical Consent) Patient identity confirmed: arm band Reason for Block: primary surgical anesthetic Staffing FLATWORK IRONER: Jailene Mccarthy Preparation Sterility Preparation: hand hygiene [...] not included)... Procedure Findings Note HNO ID: [id number] Author: Melissa Mccarthy Service: ? Author Type: Nurse Medical Assisting Program Director Type: Anesthesia Procedure Notes Filed: 12/05/2019 7:44 [...] (more content not included)... Note HNO ID: [id number] Author: Melissa Mccarthy Service: ? Author Type: Nurse Medical Assisting Program Director Type: Anesthesia Procedure Notes Filed: 12/05/2019 7:45 AM Note Text: ANESTHESIOLOGY PROCEDURE NOTE Spinal Block General Information Procedure Start Time/Medication Administration: 12/05/2019 7:39 AM Patient location during procedure: ORTimeout Performed Pre-procedure: timeout performed Consent Obtained: Yes (via Surgical Consent) Patient identity confirmed: arm band Reason for Block: primary surgical anesthetic Staffing FLATWORK IRONER: Jailene NavasCurrency ExaminerElayne Mccarthy Preparation Sterility Preparation: hand hygiene performed [...] CNTRST MTRL W/WO CNTRST Paco Haddad MD [id number] Imaging Referral ID Status Reason Start Date Expiration Date Visits Requested Visits Authorized [id number] Authorized Auto-Generat ed Referral 09/23/2021 10/23/2022 1 1 Additional Source Comments INFORMATION SOURCE (unrecogn ized section and content) DATE CREATED AUTHOR 12/08/2019 [facility] DATE CREATED AUTHOR AUTHOR'S ORGANIZ ATION 10/22/2021 [facility] dical Specialist DATE CREATED AUTHOR AUTHOR'S ORGANIZ ATION 05/08/2022 [facility] em DATE CREATED AUTHOR AUTHOR'S ORGANIZ ATION 04/14/2023 [facility] DATE CREATED AUTHOR AUTHOR'S ORGANIZ ATION 01/10/2024 [facility] dical Specialists EPIC DATE CREATED AUTHOR AUTHOR'S ORGANIZ ATION 02/23/2024 [facility] ys[facility] Group Source Comments (unrecognize d section and content) In the event this informatio n is protected by the Federal Confidentiality of Alcohol and Drug Abuse Patient Records regulations: The Federal rules restrict any use of the information to criminally investigate or prosecute any alcohol or drug abuse patient.[facility] the event this information is protected by the Federal Confidentiality of Alcohol and Drug Abuse Patient Records regulations: The Federal rules restrict any use of the information to criminally investigate or prosecute any alcohol or drug abuse patient.[facility] the event this information is protected by the Federal Confidentiality of Alcohol and Drug Abuse Patient Records regulations: The Federal rules restrict any use of the information to criminally investigate or prosecute any alcohol or drug abuse patient.[facility] the event this information is protected by the Federal Confidentiality of Alcohol and Drug Abuse Patient Records regulations: The Federal rules restrict any use of the information to criminally investigate or prosecute any alcohol or drug abuse patient.[facility] the event this information is protected by the Federal Confidentiality of Alcohol and Drug Abuse Patient Records regulations: The Federal rules restrict any use of the information to criminally investigate or prosecute any alcohol or drug abuse patient.[facility] the event this information is protected by the Federal Confidentiality of Alcohol and Drug Abuse Patient Records regulations: The Federal rules restrict any use of the information to criminally investigate or prosecute any alcohol or drug abuse patient.[facility] the event this information is protected by the Federal Confidentiality of Alcohol and Drug Abuse Patient Records regulations: The Federal rules restrict any use of the information to criminally investigate or prosecute any alcohol or drug abuse patient.[facility] the event this information is protected by the Federal Confidentiality of Alcohol and Drug Abuse Patient Records regulations: The Federal rules restrict any use of the information to criminally investigate or prosecute any alcohol or drug abuse patient.[facility] the event this information is protected by the Federal Confidentiality of Alcohol and Drug Abuse Patient Records regulations: The Federal rules restrict any use of the information to criminally investigate or prosecute any alcohol or drug abuse patient.[facility] the event this information is protected by the Federal Confidentiality of Alcohol and Drug Abuse Patient Records regulations: The Federal rules restrict any use of the information to criminally investigate or prosecute any alcohol or drug abuse patient.[facility] the event this information is protected by the Federal Confidentiality of Alcohol and Drug Abuse Patient Records regulations: The Federal rules restrict any use of the information to criminally investigate or prosecute any alcohol or drug abuse patient.[facility] Reason for Visit (unrecogniz ed section and content) Reason Comments Appointment Reason Comments Radiology CT Specialty Diagnoses / Procedures Referred By Contac t Referred To Contact CT IMAGING Diagnoses Renal artery aneurysm (HCC) Procedures CTA ABD/PEL WO/W IVCON CT ANGIO ABD&PLVIS CNTRST MTRL W/WO CNTRST Paco Haddad MD [address] [place] [address] Ct Imaging Referral ID Status Reason Start Date Expiration Date V isits Requested Visits Authorized [id number] Closed Auto-Generate d Referral 09/23/2021 10/23/2022 1 1 Reason Comments Established Patient Reason Comments Radiology Mammogram Specialty Diagnoses / Procedures Referred By Contac t Referred To Contact BR IMAGING Diagnoses Encounter for screening mammogram for breast cancer Procedures JAKE SCREENING SCREENING MAMMOGRAPHY BI 2-VIEW BREAST INC Sharon Gallagher, EMPLOYMENT REPRESENTATIVE.WRECKING SUPERVISOR [address] [facility] [address] [place] [address] Br Imaging [address] [place] [address] Referral ID Status Reason Start Date Expiration Date V isits Requested Visits Authorized [id number] Closed Auto-Generate d Referral 11/20/2021 12/20/2022 1 1 Reason Comments Radio Gen RMP Reason Comments Radiology XR Reason Comments Cough Nasal Congestion Reason Comments Radio Gen RMP Radiology Service Pr ogress NotePATIENT NAME: Gilda SortoMRN: [id number] OF SERVICE: April 12, 2023TIME: 12:30 PMPATIENT [...] COMPLETE MINIMUM 3 VIEWS Kayla Mata MD [address] [place] [address] [place] [address] Referral ID Status Reason Start Date Expiration Date V isits Requested Visits Authorized [id number] Closed Auto-Generate d Referral 03/21/2023 04/19/2024 1 1 Care Teams (unrecognized sec tion and content) Planer Tailer Relationship Specialty Start Date End Date Gonsalo Hubbard MD [address] [place] [address] PCP - General 08/31/00 Planer Tailer Relationship Specialty Start Date End Date Gonsalo Hubbard MD [address] [place] [address] PCP - General 08/31/00 Planer Tailer Relationship Specialty Start Date End Date Gonsalo Hubbard MD [address] [place] [address] PCP - General 08/31/00 Planer Tailer Relationship Specialty Start Date End Date Gonsalo Hubbard MD [address] [place] [address] PCP - General 08/31/00 Planer Tailer Relationship Specialty Start Date End Date Gonsalo Hubbard MD [address] [place] [address] PCP - General 08/31/00 Planer Tailer Relationship Specialty Start Date End Date Gonsalo Hubbard MD [address] [place] [address] PCP - General 08/31/00 Planer Tailer Relationship Specialty Start Date End Date Gonsalo Hubbard MD [address] [place] [address] PCP - General 08/31/00 Planer Tailer Relationship Specialty Start Date End Date Gonsalo Hubbard MD [address] [place] [address] PCP - [employer] 05/16/21 Gonsalo Hubbard MD [address] [place] [address] PCP - General Internal Medicine 12/07/22 Eliud Weiss DPM [address] [facility] [address] [place] [address] Referring Physician Podiatry 04/20/23 Ifeanyi Leavitt MD [address] [place] [address] Consulting Physician Dermatology 04/26/23 Sandro Trejo MD [address] [place] [address] Consulting Physician Ophthalmology 04/26/23 Dr Ramirez [facility] Vascular Surgery 11/25/21 Planer Tailer Relationship Specialty Start Date End Date Gonsalo Hubbard MD [address] [facility] [address] [place] [address] PCP - General 08/31/00 FOR RECORDS PERTAINING [...] BE BASED ON THE PRIMARY CLINICAL RECORDS. [employer] provides no warranty or guarantee of the accuracy or completeness of information in this document.
[2024-02-23 12:24] VITALS: BP 120/72; PULSE 72; O2SAT 96
== END 2024-02-23 13:01 | disposition home or self-care (01) ==
LOC: VC 11:27
PROVIDERS: PCP Radiology Diagnostic Radiology; Visit Provider Radiology Diagnostic Radiology
DX: I83.813 Varicose veins of bilateral lower extremities with pain (principal)
CPT/HCPCS: 36466

== ENCOUNTER 2024-03-01 11:30 | Outpatient (OUT) | payer MEDICARE, SELFPAY ==
[2024-03-01 08:02] VITALS: BMI 35.2
--- NOTE | 2024-03-01 08:02 | VEINCLINIC_ITS ---
Vital Signs 03/01/24 08:02 Height 5 ft 4 in Weight 93 kg BMI 35.2 Varicose Veins Patient in today for follow up ultrasound post microfoam chemical ablation left leg Jb Garcia MD personally performed the services described in this documentation, as scribed by Zandra Mota RVT, RDMS in my presence and it is both accurate and complete. Zandra Garcia RVT, RDMS, am scribing for, and in the presence of, Dr. Jb Li and in the presence of the patient.. thigh: bilateral (symptoms left > right leg), knee: bilateral, calf: bilateral, ankle: bilateral and beltre: bilateral aching, cramping and dull 5 20 years Worsened in recent months: Yes standing elevating extremities, compression stockings and exercise Reports fatigue, heaviness, limb pain, edema and leg edema History of lower extremity trauma: No Superficial thrombophlebitis: No Family history of varicose veins: yes (Patient's mother) Has patient had previous lower extremity venous surgery: Yes Patient has previously received the following treatment(s) for lower extremity varicose veins: Reports sclerotherapy and laser therapy Does patient have a history of : yes Does patient intend to have future pregnancies: no Has patient had lower extremity venous scan with relux testing: Yes Support hose used: Yes Problems walking or doing physical activity: Yes How does it affect you: decreased ability secondary to pain/edema Do you walk much: Yes Do you stand much: No Review of Systems ROS Narrative Jb Garcia MD personally performed the services described in this documentation, as scribed by Zandra Mota RVT, RDMS in my presence and it is both accurate and complete. I, Zandra Mota RVT, RDMS, am scribing for, and in the presence of, Dr. Jb Li and in the presence of the patient. Status of ROS 10 or more systems reviewed and unremark able except as noted in history and below Cardiovascular Reports: edema Integumentary/Breast Reports: skin pain, skin tenderness and changes in skin color Neurological Reports: weakness in extremities [facility] Medical History (Updated 02/08/24 @ 09:26 by Charisma Alexandre) Phlebitis and thrombophlebitis of superficial vessels of right lower extremity ?I80.01 - Phlebitis and thrombophlebitis of superficial vessels of right lower extremity (ICD-10) Phlebitis and thrombophlebitis of superficial vessels of left lower extremity ?I80.02 - Phlebitis and thrombophlebitis of superficial vessels of left lower extremity (ICD-10) Renal artery aneurysm ?I72.2 - Aneurysm of renal artery (ICD-10) delivery delivered ?O82 - Encounter for delivery without indication (ICD-10) Pain due to varicose veins of both lower extremities ?I83.813 - Varicose veins of bilateral lower extremities with pain (ICD-10) Squamous cell carcinoma Hyperparathyroidism ?E21.3 - Hyperparathyroidism, unspecified (ICD-10) 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 - Other specified disorders of arteries and arterioles (ICD-10) Hypertension ?I10 - Essential (primary) hypertension (ICD-10) Cataract ?H26.9 - Unspecified cataract (ICD-10) Breast cancer ?C50.919 - Malignant neoplasm of unspecified site of unspecified female breast (ICD-10) Arthritis ?M19.90 - Unspecified osteoarthritis, unspecified site (ICD-10) Anxiety ?F41.9 - Anxiety disorder, unspecified (ICD-10) Surgical History (Updated 02/23/24 @ 12:56 by Veto Allred) S/P sclerotherapy of varicose veins ?Z98.890 - Other specified postprocedural states (ICD-10) ?Z86.79 - Personal history of other diseases of the circulatory system (ICD- 10) S/P sclerotherapy of varicose veins ?Z98.890 - Other specified postprocedural states (ICD-10) ?Z86.79 - Personal history of other diseases of the circulatory system (ICD- 10) Status post ablation of incompetent vein using laser ?Z98.890 - Other specified postprocedural states (ICD-10) History of arthroplasty of left knee ?Z96.652 - Presence of left artificial knee joint (ICD-10) History of tonsillectomy and adenoidectomy ?Z90.89 - Acquired absence of other organs (ICD-10) H/O: hysterectomy ?Z90.710 - Acquired absence of both cervix and uterus (ICD-10) History of surgical removal of squamous cell carcinoma of skin of amish region ?Z98.890 - Other specified postprocedural states (ICD-10) ?Z85.828 - Personal history of other malignant neoplasm of skin (ICD-10) H/O parathyroidectomy ?Z98.890 - Other specified postprocedural states (ICD-10) ?Z90.89 - Acquired absence of other organs (ICD-10) Hx of appendectomy ?Z90.49 - Acquired absence of other specified parts of digestive tract (ICD- 10) Family History (Updated 01/17/24 @ 11:24 by Veto Allred) Other Family history of hypertension Heart disease Pain due to varicose veins of both lower extremities Social History (Updated 01/17/24 @ 11:24 by Veto Allred) Within the past year, how often did you have a drink containing alcohol: 2-4 times a month Smoking status: Never smoker Non-prescribed substance use: denies use Meds Home Medications and Allergies Home Medications ?Medication ?Instructions ?Recorded ?Confirmed ?Type lorazepam 0.5 mg tablet (Ativan) 0.25 mg PO DAILY PRN anxiety 01/17/24 01/17/24 History multivitamin (Daily Multi-Vitamin 1 tab PO DAILY 01/17/24 01/17/24 History tablet) omeprazole 40 mg capsule,delayed 40 mg PO DAILY 01/17/24 01/17/24 History release triamterene 37.5 1 cap PO DAILY 01/17/24 01/17/24 History mg-hydrochlorothiazide 25 mg capsule zolpidem 5 mg tablet (Ambien) 01/17/24 History Allergies Allergy/AdvReac Type Severity Reaction Status Date / Time TRACY Inhibitors Allergy Severe Swelling Verified 01/17/24 11:28 of Lip/Tongue/Throat doxycycline Allergy Intermediate Rash Verified 01/17/24 11:28 nitrofurantoin Allergy Intermediate Rash Verified 01/17/24 11:28 Sulfa (Sulfonamide Allergy Rash Verified 01/17/24 11:28 Antibiotics) Exam Narrative Exam Narrative: IJb MD personally performed the services described in this documentation, as scribed by aZndra Mota RVT, RDMS in my presence and it is both accurate and complete. IZandra RVT, RDMS, am scribing for, and in the presence of, Dr. Jb Li and in the presence of the patient. Constitutional Documenting provider has reviewed patient's vital signs: yes Common normals: oriented x3 Cardio Peripheral pulses: posterior tibial pulses present and dorsalis pedis pulses present Extremity Common normals: normal capillary refill General: calf tenderness and edema Right lower extremity: lower leg Right lower leg: inspection and palpation Left lower extremity: lower leg Left lower leg: inspection and palpation Neuro Common normals: oriented x3 Results Imaging Venous US: Radiologist's impression: The ultrasound demostrates Varithena induced thrombus visualized at medial ankle, dist/med calf, and mid/med thigh. Assessment and Plan Assessment and Plan (1) Phlebitis and thrombophlebitis of superficial vessels of left lower extremity: Plan Patient in today for follow up ultrasound of lower extremity following treatment of Varithena/microfoam completed on 02/23/24. IJb MD personally performed the services described in this documentation, as scribed by Zandra Mota RVT, RDMS in my presence and it is both accurate and complete. Zandra Garcia RVT, RDMS, am scribing for, and in the presence of, Dr. Jb Li and in the presence of the patient.
--- NOTE | 2024-03-01 08:04 | W.VEIN ---
Discharge Plan Discharge Disposition: Home, Self-Care Outpatient Diagnostics: VC INJ Sclerosing SOLMULT Vein (Routine) Timeframe: 2 Weeks Facility: [facility] - Location: [facility] Center Ordered By: Jb Li Follow Up Appointments: 03/21/24. Plan of Treatment: Sclerotherapy Print Language: Irish Discharge Date/Time: 03/01/24 12:07
--- NOTE | 2024-03-01 11:32 | VEIN_ITS ---
Patient Name: JACQUELIN SORTO MR#: [id number] : 1950 Exam Date: 03/01/2024 Ordering Doctor: DR ELPIDIO IRIZARRY M.D. RADIOLOGY REPORT PROCEDURE: VC EXT VENOUS LT LIMITED COMPARISON: VC EXT VENOUS LT LIMITED, 01/24/2024. INDICATIONS: I80.02 - Phlebitis and thrombophlebitis of superficial ve... TECHNIQUE: Lower extremity natarajan scale and Duplex Doppler evaluation of the deep venous system from the inguinal ligament through the calf veins. FINDINGS: REGION: Left lower extremity. THROMBI: Negative for DVT. Varithena induced thrombus visualized at medial ankle, dist/med calf, and mid/med thigh. COMPRESSIBILITY: Non-compressible segments corresponding to thrombus FLOW: Areas of no flow corresponding to thrombus OTHER: No varicose veins remain. CONCLUSION: Post ablation occlusion of the treated left leg varicose veins. No deep vein thrombus or residual varicose veins. Dictated by: Jb Li MD on 03/01/2024 at 11:57 Approved by: Jb Li MD on 03/01/2024 at 11:57
--- NOTE | 2024-03-01 11:32 | VEIN_ITS ---
Patient Name: JACQUELIN SORTO MR#: [id number] : 1950 Exam Date: 03/01/2024 Ordering Doctor: DR ELPIDIO IRIZARRY M.D. RADIOLOGY REPORT PROCEDURE: [facility] - OFFICE VISIT FOLLOW UP COMPARISON: [facility], 01/24/2024. PROGRESS NOTES: The patient reports no significant problems following micro foam chemical ablation of incompetent left leg varicose veins. The patient did have an accident resulting in significant soreness to the right lower leg with bruising however the patient reports no fracture was seen on x-ray. Multiple bilateral thrombosed varicose veins. Residual reticular and spider veins are observed. Mild subcutaneous edema. Extensive hemosiderin staining. There is moderate bruising of the right lower leg involving the medial anterior and lateral portions of mid to distal leg related to trauma. Review of the ultrasound performed the same day demonstrates occlusive thrombus extending throughout the treated left leg varicose veins with no deep vein thrombus. The patient expressed a desire to proceed with treatment of reticular and spider veins with injection sclerotherapy but would like to take a pause to let her right leg bruising heel. [facility] [place] IMPRESSION: 1. Successful ablation of the incompetent treated left leg varicose veins. 2. Persistent bilateral reticular and spider veins. PLAN: Injection sclerotherapy bilateral reticular and spider veins Nurse notes, history and physical were reviewed and confirmed, see attached forms. The nurse was present throughout the physical exam and consultation Dictated by: Jb Li MD on 03/01/2024 at 13:07 Approved by: Jb Li MD on 03/01/2024 at 13:09
--- OUTSIDE RECORDS SUMMARY | 2024-03-01 11:32 | XMS_ITS | CCD ---
Author Organization [facility] Care Team Providers Care Moisture Meter Operator Name Role Phone Gonsalo Hubbard MD Primary Care Provider JALEN DELAROSA Attending Unavailable Gonsalo Hubbard Primary Care Unavailable JALEN DELAROSA Attending Unavailable Gonsalo Hubbard Primary Care Unavailable JALEN DELAROSA Attending Unavailable Gonsalo Hubbard Primary Care Unavailable JALEN DELAROSA Attending Unavailable PCP, NONE Primary Care Unavailable JALEN DELAROSA Attending Unavailable Gonsalo Hubbard Primary Care Unavailable Gonsalo Hubbard MD Primary Care Provider [phone] KAYLA MATA Attending Unavailable KAYLA MATA Referring Unavailable GONSALO HUBBARD Primary Care Unavailable KAYLA MATA Referring Unavailable GONSALO HUBBARD Primary Care Unavailable GONSALO HUBBARD Primary Care Unavailable SHARON SALDIVAR Attending Unavailable SHARON SALDIVAR Referring Unavailable GONSALO HUBBARD Primary Care Unavailable SHARON SALDIVAR Referring Unavailable Gonsalo Hubbard MD Unavailable Gonsalo Hubbard MD Primary Care Provider Abhishek TSAI, Eliud R Unavailable Ifeanyi Leavitt MD Unavailable [phone] Sandro Trejo MD Unavailable [phone] GONSALO HUBBARD Referring Unavailable SAMIA SANZ Attending Unavailable GONSALO HUBBARD Attending Unavailable GRAZYNA BERMUDEZ Attending Unavailable GRAZYNA BERMUDEZ Referring Unavailable GONSALO HUBBARD Attending Unavailable Gonsalo Hubbard MD Primary Care Provider [phone] Gonsalo Hubbard Primary Care Unavailable Juan Lundberg Attending Unavailable Juan Lundberg Admitting Unavailable Gonsalo Hubbard Admitting Unavailable Gonsalo Hubbard Referring Unavailable Gonsalo Hubbard Attending Unavailable Gonsalo Hubbard Primary Care Unavailable MD Gonsalo Hubbard Primary Care Provider RUPERT Lundberg Emergency Provider [phone] Allergies Allergy Classification Reported Allergen(s) Allergy Type Date of Onset Reaction(s) Facility (15 sources) Doxycycline; Translations: [DOXYCYCLINE] Drug Allergy 8 Rash [facility] Work Phone: (15 sources) Sulfonamides (Antibiotic); Translations: [SULFA (SULFONAMIDE ANTIBIOTICS)] Drug Allergy 4 Anaphylaxis, Unknown [facility] (2 sources) Angiotensin-conver ting enzyme inhibitor agent Drug Allergy 3 Angioedema [facility] (2 sources) Nitrofurantoin Drug Allergy 3 GI intolerance [facility] (1 source) Doxycycline Drug Allergy 4 [facility] (1 source) Sulfonamides (Antibiotic) Drug allergy (disorder) 4 [facility] Medications Current Medications Medication Drug [...] Comment on above: Take 4 capsules by out 1 hour before dental procedure ascorbic [...] Discontinued (Other) citalopram 10 mg oral tablet (14 sources) Serotonin Reuptake Inhibitor Start: 01-01-2018 take 10 mg by mouth once daily Citalopram Active 10 MG PO Daily January 01, 2018 12:00am Comment on above: Take 10 mg by mouth once daily. docusate sodium 100 mg oral capsule (11 sources) Start: 12-06-2019 take 1 capsule by mouth every twelve hours as needed docusate sodium (COLACE) 100 mg capsule Take 1 capsule by mouth twice daily as needed for Constipation. 60 capsule 12/06/2019 Active Comment on above: Take 1 capsule by mo [facility] twice daily as needed for Constipation. eye vitamin supplement (Ocuvite Eye Health Formula) capsule (2 sources) Start: 04-14-2012 take 1 capsule by mouth in the morning eye vitamin supplement (Ocuvite Eye Health Formula) capsule Take 1 capsule by mouth in the morning. 0 04/14/2012 Active fexofenadine hydrochloride 180 mg oral tablet (1 source) Histamine-1 Receptor Antagonist Start: 01-01-2018 take 1 tablet by mouth once daily Fexofenadine (Lotus Allergy) 180 mg Tablet Active 180 MG PO Daily January 01, 2018 12:00am fluticasone propionate 0.05 mg/actuat metered dose nasal spray (2 sources) Corticosteroid Start: 02-28-2023 take 2 spray(s) nasal route once daily as needed fluticasone (Flonase) 50 MCG/ACT nasal spray Indications: Seasonal allergic rhinitis, unspecified trigger USE 2 SPRAYS IN EACH NOSTRIL ONCE DAILY NEEDED 48 g 3 02/28/2023 Active hydroCHLOROthiazide 25 mg / triamterene 37.5 mg oral capsule (14 sources) Potassium-sparing Diuretic, Thiazide Diuretic Start: 03-25-2023 take 1 capsule by mouth in the morning triamterene-hydr oCHLOROthiazide (Dyazide) 37.5-25 MG capsule Indications: Essential hypertension (CMS/HCC) Take 1 capsule by mouth in the morning. 90 capsule 3 03/25/2023 Active Start: 09-12-2014 take 1 capsule by mouth once daily Triamterene-Hydrochlorothiazid (Dyazide) 37.5-25 mg Capsule Active 1 CAP PO Daily January 01, 2018 12:00am Comment on above: Take 1 capsule by mo [facility] once daily. levocetirizine dihydrochloride 5 mg [...] MG tablet Indications: SIOBHAN (generalized anxiety disorder) (CMS/HCC) Take 1 tablet (0.5 mg) by mouth every 8 (eight) hours if needed for anxiety 30 tablet 0 04/26/2023 Active lysine 500 mg oral tablet (12 sources) Start: 2003 take 500 mg by mouth once daily Lysine Active 500 MG PO Daily January 01, 2018 12:00am Comment on above: takes daily MISC NATURAL [...] twyla once daily. Allergy medication potassium chloride 20 meq extended release oral tablet (5 sources) Start: 11-21-2021 take 1 tablet by mouth twice daily Potassium Chloride (K-Tab) 20 mEq tablet extended release Active 20 MEQ PO Twice daily November 21, 2021 12:00am take 1 tablet by mouth twice conor ly potassium chloride (K-TAB) 10 mEq tablet Take 10 mEq by mouth twice daily. Active Comment on above: Take 10 mEq by mouth twice daily. Vit C-Vit O-Pjuluw-Wly-Om-3 (Ocuvite) 236-96-7-150 xd-zyqr-rb-mg Capsule (1 source) Start: 01-01-2018 take 1 capsule by mouth once daily Vit C-Vit S-Bgfhgl-Jjr-Om-3 (Ocuvite) 879-52-6-150 ze-ytcr-uk-mg Capsule Active 1 CAP PO Daily January 01, 2018 12:00am zolpidem tartrate 5 mg oral tablet (13 [...] Drug Class(es) Dates Sig (Normalized) Sig (Original) [id number] 200 actuat albuterol 0.09 mg/actuat metered dose inhaler (1 source) beta2-Adrenergic Agonist Start: 01-01-2018 End: 01-01-2018 take 1 puff(s) by inhalation every four to six hours Albuterol Sulfate (Ventolin Hfa) 90 mcg/actuation Hfa Aerosol Inhaler Discontinued 2 PUFF INHALATION EVERY 4-6 HOURS January 01, 2018 12:00am January 01, 2018 11:00am aspirin 325 mg delayed release oral tablet [...] foot] Onset: 11-29-2022 11-29-2022 Chronic Anxiety disorders (3 sources) Generalized anxiety disorder; Translations: [Generalized anxiety [...] [Essential (primary) hypertension] Onset: 09-14-2012 11-29-2022 Chronic Fluid and electrolyte disorders (1 source) Hypokalemia; Translations: [Hypokalemia] 11-21-2021 Episodic Hypertension with complications and secondary hypertension (1 [...] [Primary hyperparathyroidism] Onset: 09-10-2015 04-26-2023 Chronic Other injuries and conditions due to external causes (1 source) Contusion; Translations: [Other injury of unspecified body region, initial encounter] 02-21-2024 Episodic Other lower respiratory disease (2 sources) Cough; [...] 12-02-2017 Episodic Other aftercare (1 source) Other long term care administrator (current) drug therapy; Translations: [Other long term care administrator (current) drug therapy] Onset: 01-12-2022 Episodic Other [...] RT 4V*on 02-21-2024 XR knee RT 4V* [facility] [place] [address] [place] [address] XRay Report Signed Patient: Gilda Sorto MR#: [id number] 0 : 1950 Acct:[id number] Age/Sex: 73 / F ADM Date: 02/21/24 Loc: ER Room: Type: [facility] ER Attending Dr: Copies to: Juan Lundberg APRN Ordering Provider: Juan Lundberg APRN Date of Service: 02/21/24 XR/XR wrist LT min 3V*: Fall ([id number]) XR/XR knee RT 4V*: Fall LEFT WRIST [...] Rosa Jr., D.OConcha02/21/2024 1:44 PM Dictation Location: [facility] Transcribed By: [facility] 02/21/24 1344 Dictated By: Alexis Rosa Jr, DO 02/21/24 1342 Signed By: 02/21/24 1344 Normal [facility] CT ABDOMEN PELVIS W IV [...] (COVID-19) RNA ANGELICA+probe Ql (Unsp spec) Negative [facility] No Panel Informationon 06-30 FLU A Negative [facility] FLU B Negative [facility] MM screening mammo BI w/CADo n 04-19-2023 MM screening mammo BI w/CAD [facility] [place] [address] [place] [address] Mammography Report Signed Patient: Gilda Sorto MR#: [id number] 0 : 1950 Acct:[id number] Age/Sex: 72 / F ADM Date: 04/19/23 Loc: [place] Room: Type: [facility] Attending Dr: Gonsalo Hubbard MD Copies [...] Azam Cason M.D.04/19/2023 1:37 PM Dictation Location: [facility] Transcribed By: ISABELA 04/19/23 7110 Dictated By: Azam Cason II, MD 04/19/231331 Signed By: 04/19/231336 Normal [facility] CNOVon 04-12-2023 CNOV Office Visit (PLASST ) NOREEN,GILDA Torres ([id number]) 1950 F Date Time Provider Department 04/12/23 1:00 PM KAYLA MATA During your visit today, we recorded the following information about you: Kayla Mata MD 04/12/2023 4:51 PM Signed PLASTIC SURGERY DEPARTMENT [facility] Hand Surgery Note [x] New referred [...] [x] Anticoagula (more content not included)... Normal [facility] No Panel Informationon 04-12 Radiology Study observation (narrative) [facility] XR HAND 3V PA/LAT/OBL BILon 04-12-2023 [...] 1. Osteoarthritis of both hands and wrists. Vending Machine Repairer: CHARLOTTE Transcribe Date/Time: Apr 12 2023 1:52P Dictated by : EDITH LAZO MD This examination was interpreted and the report reviewed and electronically signed by: EDITH LAZO MD on Apr 12 2023 1:54PM EST [id number] Normal [facility] XR Hand - bilateral PA and L ateral and Obliqueon 04-12-2023 IMPRESSION: 1. Osteoarthritis of both hands and wrists. Vending Machine Repairer: PSCMagda Transcribe Date/Time: Apr 12 2023 1:52P Dictated by : EDITH LAZO MD This examination was interpreted and the report reviewed and electronically signed by: EDITH LAZO MD on Apr 12 2023 1:54PM EST DIVISION OF RADIOLOGY * * *Final [...] erosions are demonstrated. DIVISION OF RADIOLOGY Provider, [facility] - 04/12/2023 * * *Final [...] 1. Osteoarthritis of both hands and wrists. Vending Machine Repairer: CHARLOTTE Transcribe Date/Time: Apr 12 2023 1:52P Dictated by : EDITH LAZO MD This examination was interpreted and the report reviewed and electronically signed by: EDITH LAZO MD on Apr 12 2023 1:54PM EST [facility] XR Hand - bilateral PA and L ateral and ObliqueOrdered By: [facility] Provider on 04-12-2023 [facility] XR WRIST 3V PA/LAT/OBL BILon 04-12-2023 [...] IMPRESSION: 1. Degenerative arthrosis of both wrists. Vending Machine Repairer: CHARLOTTE Transcribe Date/Time: Apr 12 2023 1:54P Dictated by : EDITH LAZO MD This examination was interpreted and the report reviewed and electronically signed by: EDITH LAZO MD on Apr 12 2023 1:55PM EST [id number] Normal [facility] XR Wrist - bilateral PA and Lateral and Obliqueon 04-12-2023 IMPRESSION: 1. Degenerative arthrosis of both wrists. Vending Machine Repairer: CHARLOTTE Transcribe Date/Time: Apr 12 2023 1:54P [...] erosions are demonstrated. DIVISION OF RADIOLOGY Provider, [facility] - 04/12/2023 * * *Final [...] IMPRESSION: 1. Degenerative arthrosis of both wrists. Vending Machine Repairer: CHARLOTTE Transcribe Date/Time: Apr 12 2023 1:54P Dictated by : EDITH LAZO MD This examination was interpreted and the report reviewed and electronically signed by: EDITH LAZO MD on Apr 12 2023 1:55PM [facility] CNCOon 04-16-2022 CNCO HNO ID: [id number] Author: Mammography Coordinator Service: ? Author Type: Physician Type: Letter Filed: 04/19/2022 11:36 PM Note Text: April 16, 2022 PID: [id number] Gilda Sorto [address] [place] [address] Dear Ms. Sorto, We are pleased to [...] report will be kept on file at [facility] as part of your permanent medical record and are available for your continuing care. Thank you for allowing us to help in meeting your health care needs. Sincerely, Dr. Perez Interpreting Radiologist [facility] (Normal over 40) Normal [facility] CNOVSPon 04-16-2022 CNOVSP Visit (SP) Office (HEMCA4) GILDA SORTO ([id number]) 1950 F Date Time Provider Department 04/16/22 12:30 PM SHARON SALDIVAR HEMCA4 During your visit today, we recorded the following information about you: Temperature Pulse Respiration Blood pressure 98.1 degrees 85/minute 20/minute 117/60 [facility] [place] 04/16/2022 11:54 AM Signed Additional intake questions: Has the patient had fever, nausea, vomiting, diarrhea, constipation, fatigue for > 1 week? No Does the patient have a decreased appetite? No Does patient want to see a Development Team Lead? No (yes to any of above refer patient to schedulers for dietitian appointment) ) Does patient have any new or increased numbness or tingling of extremities? No Is patient interested in fertility information? No Does patient need any prescription refills? No Does patient have an advanced directive in place? Yes, copies are in [facility] Electronically Signed By: WESLEY Thomas APRN.[facility] 04/16/2022 2:06 PM Signed ATTENDING PHYSICIAN: [...] which included preparing to see the patient, [id number] patient care, completing clinical documentation, performing a medically appropriate examination, counseling and educating the patient/family/caregive r, ordering medications, tests, or procedures, communicating with other HCPs (not separately reported), independently interpreting results (not separately reported), communicating results to the patient/family/caregive r, and care coordination (not separately reported). Sharon Saldivar APRN.[facility] Referring Provider: SHARON SALDIVAR [[id number]] Allergies As of Date: 04/16/2022 Noted Allergy [...] Z17.1] Order(s):WESLEY (more content not included)... Normal [facility] JAKE SCREENING W TOMOon 04-16 JAKE SCREENING W JOE * * *Final Report* * * DATE OF EXAM: Apr 16 2022 11:12AM CAW 0582 - JAKE SCREENING W JOE / PROCEDURE REASON: Encounter for screening mammogram for breast cancer * * * * Physician Interpretation * * * * RESULT: #[id number] - [facility] SCREENING W JOE BILATERAL DIGITAL SCREENING MAMMOGRAM [...] to exams dated: 11/24/2020 mammogram - [facility], 11/22/2019 mammogram, 11/14/2018 mammogram - [facility], 11/11/2017 mammogram, and 11/02/2016 mammogram - [facility]. There are scattered fibroglandular elements in [...] screening mammogram is recommended. Bernardo garay/ayde:04/16/2022 11:38:26 Congressional Representative(s): RT Mario(R)(M)(BS), [facility] letter sent: Normal over 40 Mammogram [...] Health, Family Medicine, and Medical/Surgical Oncology, the [facility] has carefully reviewed the data and [...] their providers when to stop screening mammograms. Vending Machine Repairer: Ayde Transcribe Date/Time: Apr 16 2022 11:12A Dictated by : BERNARDO PEREZ MD This examination was interpreted and the report reviewed and electronically signed by: BERNARDO PEREZ MD on Apr 16 2022 11:38AM EST [id number] Normal [facility] SARS-CoV-2,INFLUENZA A/B NUC LEIC ACID TESTon 12-15-2021 EUA DISCLAIMER [facility] Comment on above: Result Comment: [...] is terminated or revoked sooner. Performed at [facility] [address] [place] [id number] FLU A by PCR Negative [facility] FLU B by PCR Negative [facility] SARS-CoV-2 (COVID-19) RNA ANGELICA+probe Ql (Unsp spec) Abnormal NEG [facility] Comment on above: Result Comment: Posi tive for COVID-19 CRITICAL VALUE-PHYSICIAN MUST BE NOTIFIED RESULTS PHONED TO: Carmel Tinajero RN at 0928 VERBAL RESULT VERIFICATION RECEIVED EUA DISCLAIMER [facility] Comment on above: Result Comment: [...] is terminated or revoked sooner. Performed at [place] [address] FLU A by PCR Negative Normal [facility] FLU B by PCR Negative Normal [facility] SARS-CoV-2 (COVID-19) RNA ANGELICA+probe Ql (Unsp spec) Abnormal NEG [facility] Comment on above: Result Comment: Posi tive for COVID-19 CRTV RESULTS PHONED TO: Jenny Fitzpatrick RN at 0854 VERBAL RESULT VERIFICATION RECEIVED CBC with Diffon 12-09-2021 AB IMMATURE NEUT 0.02 K/UL Normal 0.0-0.1 [facility] ABS BASO 0.02 K/UL Normal 0.00-0.22 [facility] ABS EOS 0.32 K/UL Normal 0-0.45 [facility] ABS NEUTROPHILS 4.34 K/UL Normal 1.8-7.7 [facility] ABS.NEUT.CALCULATED 4.34 K/UL Normal [facility] Comment on above: Result Comment: Perf ormed at [place] [id number] [facility] [address] Basophils/100 WBC (Bld) 0.30 % Normal 0-1 [facility] DIFF TYPE AUTO DIFF Normal [facility] Eosinophils/100 WBC (Bld) 5.10 % High 0-3 [facility] Erythrocyte distribution width (RBC) [Ratio] 12.7 % Normal 11.7-15.0 [facility] Hematocrit (Bld) [Volume fraction] 41.9 % Normal 36-44 [facility] Hemoglobin (Bld) [Mass/Vol] 13.5 g/dL Normal 12.0-15.0 [facility] Lymphocytes (Bld) [#/Vol] 1.15 10*3/uL Low 1.2-3.2 [facility] Lymphocytes/100 WBC (Bld) 18.30 % Low 20-40 [facility] MCH (RBC) [Entitic mass] 31.0 pg Normal 26-34 [facility] MCHC 32.2 % Normal 31-37 [facility] MCV (RBC) [Entitic vol] 96.3 fL Normal 80-100 [facility] MEAN PLT VOL 9.0 CU Normal 7.0-12.6 [facility] Monocytes (Bld) [#/Vol] 0.44 10*3/uL Normal 0-0.8 [facility] Monocytes/100 WBC (Bld) 7.00 % Normal 0-8 [facility] Neutrophils/100 WBC (Bld) 0.30 % Normal 0.0-1.0 [facility] Neutrophils/100 WBC (Bld) 69.00 % Normal 50-70 [facility] Platelets (Bld) [#/Vol] 240 10*3/uL Normal 150-450 [facility] RBC (Bld) [#/Vol] 4.35 10*6/uL Normal 4.0-4.9 [facility] RDW-SD 45.4 FL Normal 37.0-54.0 [facility] WBC (Bld) [#/Vol] 6.3 10*3/uL Normal 4.5-11.0 [facility] COMPREHENSIVE METABOLIC PANE Juanito 12-09-2021 Albumin [Mass/Vol] 4.2 g/dL Normal 3.5-5.0 [facility] Albumin/Globulin [Mass ratio] 1.6 {ratio} Normal 1.5-3.0 [facility] ALP [Catalytic activity/Vol] 80 U/L Normal 35-125 [facility] ALT [Catalytic activity/Vol] 26 U/L Normal 5-40 [facility] Anion gap [Moles/Vol] 7 mmol/L Normal 0-19 [facility] AST [Catalytic activity/Vol] 32 U/L Normal 5-40 [facility] Bilirubin [Mass/Vol] 0.3 mg/dL Normal 0.1-1.2 [facility] Calcium [Mass/Vol] 9.4 mg/dL Normal 8.5-10.4 [facility] Chloride [Moles/Vol] 103 mmol/L Normal 97-107 [facility] CO2 [Moles/Vol] 31 mmol/L Normal 24-31 [facility] Creatinine [Mass/Vol] 1.2 mg/dL Normal 0.4-1.6 [facility] ESTIMATED GFR 48 mL/min/1.73 m2 Normal [facility] Comment on above: Result Comment: CALCULATIONS OF ESTIMATED GFR ARE PERFORMED USING THE 2020 CKD-EPI STUDY REFIT EQUATION WITHOUT THE RACE VARIABLE FOR THE IDMS-TRACEABLE CREATININE METHODS. https://jasn.asnjournals.org/content//ASN.3382352 988 Performed at [place] [address] Globulin (S) [Mass/Vol] 2.6 g/dL Normal 1.9-3.7 [facility] Glucose [Mass/Vol] 87 mg/dL Normal 65-99 [facility] Potassium [Moles/Vol] 4.8 mmol/L Normal 3.4-5.1 [facility] Protein [Mass/Vol] 6.8 g/dL Normal 5.9-7.9 [facility] Sodium [Moles/Vol] 141 mmol/L Normal 133-145 [facility] Urea nitrogen [Mass/Vol] 13 mg/dL Normal 8-25 [facility] Urea nitrogen/Creatinine [Mass ratio] 10.8 mg/mg Normal 8-21 [facility] UA-REFLEX TO CULTUREon 12-09 EPI Normal [facility] Comment on above: Result Comment: Occa sional SQUAMOUS Performed at [place] [id number] RBC NONE SEEN Normal 0-3 [facility] Urinalysis dipstick W Reflex Microscopic panel (U) MANUAL MICROSCOPIC URINES Normal [facility] WBC NONE SEEN Normal 0-3 [facility] Bacteria identified Cx Nom (U) CULTURE NOT INDICATED Normal [facility] Comment on above: Result Comment: CULT URE NOT INDICATED Performed at [place] [id number] BILI Negative Normal NEG [facility] Clarity (U) CLEAR Normal [facility] Color (U) YELLOW Normal [facility] GLUC Negative Normal NEG [facility] Hemoglobin Ql (U) Negative Normal NEG [facility] KET Negative Normal NEG [facility] LEUK Negative Normal NEG [facility] NIT Negative Normal NEG [facility] pH (U) 8.0 [pH] Normal 4.6-8.0 [facility] PROT Negative Normal NEG [facility] SP GRAV,URINE 1.015 Normal 1.005-1.030 [facility] URO 0.2 MG/DL Normal 0-1.0 [facility] CREATININE, BLOOD (POC)on Creatinine [Mass/Vol] 1.20 mg/dL 0.7 - 1.4 mg/dL [facility] eGFR (POCT) 48 mL/min/1.73 m2 [facility] CTA ABD/PEL W IVCONon 2021 [facility] MRI Shoulder w/o Righton MRI Shoulder [...] by Gonsalo Alvarez on 10/21/2021 1010 Normal [facility] Complete Blood Count with Au to Diffon 04-21-2021 Basophils (Bld) [#/Vol] 0.03 10*3/uL Normal 0.00-0.20 [facility] Comment on above: Performed By: #### C BCAD, VITD, LIPD, CMP #### [facility] [address], [place] [id number] Basophils/100 WBC (Bld) 0.5 % Normal [facility] Special[facility] Comment on above: Performed By: #### C BCAD, VITD, LIPD, CMP #### [facility] [address], [place] [id number] Eosinophils (Bld) [#/Vol] 0.27 10*3/uL Normal 0.02-0.50 [facility] Comment on above: Performed By: #### C BCAD, VITD, LIPD, CMP #### [facility] [address], [place] [id number] Eosinophils/100 WBC (Bld) 4.6 % Normal [facility] Comment on above: Performed By: #### C BCAD, VITD, LIPD, CMP #### [facility] [address], [place] [id number] Erythrocyte distribution width (RBC) [Ratio] 13.1 % Normal 11.0-15.0 [facility] Comment on above: Performed By: #### C BCAD, VITD, LIPD, CMP #### [facility] [address], [place] [id number] Hematocrit (Bld) [Volume fraction] 43.9 % Normal 35.0-47.0 [facility] Comment on above: Performed By: #### C BCAD, VITD, LIPD, CMP #### [facility] [address], [place] [id number] Hemoglobin (Bld) [Mass/Vol] 14.0 g/dL Normal 11.6-15.5 [facility] Comment on above: Performed By: #### C BCAD, VITD, LIPD, CMP #### [facility] [address], [place] [id number] Lymphocytes (Bld) [#/Vol] 1.9 10*3/uL Normal 0.9-3.9 [facility] Comment on above: Performed By: #### C BCAD, VITD, LIPD, CMP #### [facility] [address], [place] [id number] Lymphocytes/100 WBC (Bld) 31.8 % Normal [facility] Comment on above: Performed By: #### C BCAD, VITD, LIPD, CMP #### [facility] [address], [place] [id number] MCH (RBC) [Entitic mass] 30.0 pg Normal 27.0-33.0 [facility] Comment on above: Performed By: #### C BCAD, VITD, LIPD, CMP #### [facility] [address], [place] [id number] MCHC (RBC) [Mass/Vol] 31.9 g/dL Low 32.0-36.0 [facility] Specialist Comment on above: Performed By: #### C BCAD, VITD, LIPD, CMP #### [facility] [address], [place] [id number] MCV (RBC) [Entitic vol] 94 fL Normal 80-100 [facility] Specialist Comment on above: Performed By: #### C BCAD, VITD, LIPD, CMP #### [facility] [address], [place] [id number] Monocytes (Bld) [#/Vol] 0.5 10*3/uL Normal 0.2-0.9 [facility] Specialist Comment on above: Performed By: #### C BCAD, VITD, LIPD, CMP #### [facility] [address], [place] [id number] Monocytes/100 WBC (Bld) 7.9 % Normal [facility] Specialist Comment on above: Performed By: #### C BCAD, VITD, LIPD, CMP #### [facility] [address], [place] [id number] Neutrophils (Bld) [#/Vol] 3.2 10*3/uL Normal 1.5-7.8 [facility] Specialist Comment on above: Performed By: #### C BCAD, VITD, LIPD, CMP #### [facility] [address], [place] [id number] Neutrophils/100 WBC (Bld) 54.9 % Normal [facility] Specialist Comment on above: Performed By: #### C BCAD, VITD, LIPD, CMP #### [facility] [address], [place] [id number] Platelet mean volume (Bld) [Entitic vol] 9.90 fL Normal 7.50-12.50 [facility] Specialist Comment on above: Performed By: #### C BCAD, VITD, LIPD, CMP #### [facility] [address], [place] [id number] Platelets (Bld) [#/Vol] 255 10*3/uL Normal 140-400 [facility] Specialist Comment on above: Performed By: #### C BCAD, VITD, LIPD, CMP #### [facility] [address], [place] [id number] RBC (Bld) [#/Vol] 4.67 10*6/uL Normal 3.90-5.20 [facility] Fire Inspector Comment on above: Performed By: #### C BCAD, VITD, LIPD, CMP #### [facility] [address], [place] [id number] RDW-SD 44.8 fL Normal 37.0-50.0 [facility] Specialist Comment on above: Performed By: #### C BCAD, VITD, LIPD, CMP #### [facility] [address], [place] [id number] WBC (Bld) [#/Vol] 5.8 10*3/uL Normal 3.8-11.0 [facility] Fire Inspector Comment on above: Performed By: #### C BCAD, VITD, LIPD, CMP #### [facility] [address], [place] [id number] Comprehensive Metabolic Pane [facility] 04-21-2021 Albumin [Mass/Vol] 4.5 g/dL Normal 3.6-5.1 [facility] Fire Inspector Comment on above: Performed By: #### C BCAD, VITD, LIPD, CMP #### [facility] [address], [place] [id number] Albumin/Globulin [Mass ratio] 2.3 {ratio} Normal 1.0-2.5 [facility] Fire Inspector Comment on above: Performed By: #### C BCAD, VITD, LIPD, CMP #### [facility] [address], [place] [id number] ALP [Catalytic activity/Vol] 96 U/L Normal 35-119 [facility] Comment on above: Performed By: #### C BCAD, VITD, LIPD, CMP #### [facility] [address], [place] [id number] ALT [Catalytic activity/Vol] 24 U/L Normal 6-33 [facility] Comment on above: Result Comment: 04/15 Female reference range changed. Performed By: #### C BCAD, VITD, LIPD, CMP #### [facility] [address], [place] [id number] Anion gap [Moles/Vol] 18 mmol/L Normal 12-20 [facility] Comment on above: Result Comment: Effe ctive 05/21/2019 reference range changed. Performed By: #### C BCAD, VITD, LIPD, CMP #### [facility] [address], [place] [id number] AST [Catalytic activity/Vol] 30 U/L Normal 9-34 [facility] Comment on above: Performed By: #### C BCAD, VITD, LIPD, CMP #### [facility] [address], [place] [id number] Bilirubin [Mass/Vol] 0.51 mg/dL Normal 0.30-1.20 [facility] Comment on above: Performed By: #### C BCAD, VITD, LIPD, CMP #### [facility] [address], [place] [id number] BUN/CREA 21 Ratio Normal 6-22 [facility] Comment on above: Performed By: #### C BCAD, VITD, LIPD, CMP #### [facility] [address], [place] [id number] Calcium [Mass/Vol] 9.8 mg/dL Normal 8.6-10.2 [facility] Comment on above: Performed By: #### C BCAD, VITD, LIPD, CMP #### [facility] [address], [place] [id number] Chloride [Moles/Vol] 103 mmol/L Normal 98-107 [facility] Comment on above: Performed By: #### C BCAD, VITD, LIPD, CMP #### [facility] [address], [place] [id number] CO2 [Moles/Vol] 26 mmol/L Normal 20-31 [facility] Specialist Comment on above: Performed By: #### C BCAD, VITD, LIPD, CMP #### [facility] [address], [place] [id number] Creatinine [Mass/Vol] 1.1 mg/dL Normal 0.6-1.4 [facility] Specialist Comment on above: Performed By: #### C BCAD, VITD, LIPD, CMP #### [facility] [address], [place] [id number] eGFRAA 58 mL/min/1.73m2 Low >60 [facility] Specialist Comment on above: Performed By: #### C BCAD, VITD, LIPD, CMP #### [facility] [address], [place] [id number] eGFRNAA 48 mL/min/1.73m2 Low >60 [facility] Specialist Comment on above: Performed By: #### C BCAD, VITD, LIPD, CMP #### [facility] [address], [place] [id number] Globulin (S) [Mass/Vol] 2.0 g/dL Normal 1.9-3.7 [facility] Specialist Comment on above: Performed By: #### C BCAD, VITD, LIPD, CMP #### [facility] [address], [place] [id number] Glucose [Mass/Vol] 91 mg/dL Normal 65-99 [facility] Comment on above: Result Comment: For FASTING Glucose --- ADA reference ranges: Normal 65-99 mg/dl Prediabetes 100-125 Diabetes >/= 126 Performed By: #### C BCAD, VITD, LIPD, CMP #### [facility] [address], [place] [id number] Potassium [Moles/Vol] 4.5 mmol/L Normal 3.5-5.5 [place] Fire Inspector Comment on above: Performed By: #### C BCAD, VITD, LIPD, CMP #### [facility] [address], [place] [id number] Protein [Mass/Vol] 6.5 g/dL Normal 6.1-8.1 [facility] [place] Fire Inspector Comment on above: Performed By: #### C BCAD, VITD, LIPD, CMP #### [facility] [address], [place] [id number] Sodium [Moles/Vol] 142 mmol/L Normal 135-146 [facility] [place] Fire Inspector Comment on above: Performed By: #### C BCAD, VITD, LIPD, CMP #### [facility] [address], [place] [id number] Urea nitrogen [Mass/Vol] 24 mg/dL Normal 7-25 [facility] Fire Inspector Comment on above: Performed By: #### C BCAD, VITD, LIPD, CMP #### [facility] [address], [place] [id number] Lipid Panelon 04-21-2021 Cholesterol [Mass/Vol] 182 mg/dL Normal 125-200 [facility] Fire Inspector Comment on above: Result Comment: Low risk < 200mg/dL Borderline risk 201-239 mg/dl High risk > or equal to 240 Performed By: #### C BCAD, VITD, LIPD, CMP #### [facility] [address], [place] [id number] Cholesterol in HDL [Mass/Vol] 62 mg/dL Normal >40 [facility] Fire Inspector Comment on above: Result Comment: High Cardiovascular Risk HDL <40 mg/dL Low Cardiovascular Risk HDL > or equal to 60 mg/dl Performed By: #### C BCAD, VITD, LIPD, CMP #### [facility] [address], [place] [id number] Cholesterol in LDL [Mass/Vol] 98 mg/dL Normal [facility] Fire Inspector Comment on above: Result Comment: LDL ATP III CLASSIFICATION LDL less than 100 mg/dl Optimal LDL 100-129 mg/dl Near or above optimal LDL 130-159 Borderline high LDL 160-189 High LDL greater than 189 mg/dl Very High Performed By: #### C BCAD, VITD, LIPD, CMP #### [facility] [address], [place] [id number] Cholesterol in VLDL [Mass/Vol] 22 mg/dL Normal [facility] Specialist Comment on above: Performed By: #### C BCAD, VITD, LIPD, CMP #### [facility] [address], [place] [id number] Cholesterol.total/Ch olesterol in HDL [Mass ratio] 3 {ratio} Normal [facility] Specialist Comment on above: Performed By: #### C BCAD, VITD, LIPD, CMP #### [facility] [address], [place] [id number] Triglyceride [Mass/Vol] 108 mg/dL Normal 30-150 [facility] Specialist Comment on above: Result Comment: TRIG ATPIII CLASSIFICATIONS TRIG less than 150 mg/dl Normal TRIG 150-199 mg/dl Borderline High TRIG 200-500 mg/dl High TRIG greather than 500 mg/dl Very High Performed By: #### C BCAD, VITD, LIPD, CMP #### [facility] [address], [place] [id number] Microalbumin (with Creat)on 04-21-2021 mALB <1.2 Low [facility] Specialist Comment on above: Result Comment: Unab le to calculate mALB/Crea ratio, mALB is <1.2 mg/dL mALB reference range not established. Performed By: #### m ALBC #### [facility] [address], [place] [id number] UCREA 183 mg/dL Normal 28-217 [facility] Specialist Comment on above: Performed By: #### m ALBC #### [facility] [address], [place] [id number] Q - URINALYSIS,COMPLETEon Appearance (U) CLEAR Normal CLEAR [facility] Specialist Comment on above: Order Comment: [facility] performed at: [facility], [facility], [address] [facility], [address] [place] [address], [place], [address], Tmr Teacher: Clay Sparrow MD [facility] Collection Date/Time: [id number] [facility] Results Received Date/Time: [facility] Reported Date/Time: Performed By: #### 3 4F #### [facility] Default [address] [place] [address] BACTERIA NONE SEEN Normal NONE SEEN [facility] Fire Inspector Comment on above: Order Comment: [facility] performed at: [facility], [employer] [facility], [address] [place] [address], [address] [place] [address], [address] [place] [address], Tmr Teacher: Clay Sparrow MD [facility] Date/Time: [facility] Results Received Date/Time: [facility] Reported Date/Time: Performed By: #### 3 4F #### [facility] [address] [place] [address] Bilirubin Ql (U) Negative Normal NEGATIVE [facility] Specialist Comment on above: Order Comment: [facility] performed at: [facility], [employer] [facility], [address] [place] [address], [address] [place] [address], [address] [place] [address], Tmr Teacher: Clay Sparrow MD [facility] Date/Time: [facility] Results Received Date/Time: [facility] Reported Date/Time: Performed By: #### 3 4F #### [facility] [address] [place] [address] Color (U) YELLOW Normal YELLOW [facility] Fire Inspector Comment on above: Order Comment: [facility] performed at: [facility], [employer] [facility], [address] [place] [address], [address] [place] [address], [address] [place] [address], Tmr Teacher: Clay Sparrow MD [facility] Date/Time: [facility] Results Received Date/Time: [facility] Reported Date/Time: Performed By: #### 3 4F #### [facility] [address] [place] [address] Glucose Ql (U) Negative Normal NEGATIVE [facility] Specialist Comment on above: Order Comment: [facility] performed at: [facility], [employer] [facility], [address] [place] [address], [address] [place] [address], [address] [place] [address], Tmr Teacher: Clay Sparrow MD [facility] Date/Time: [facility] Results Received Date/Time: [facility] Reported Date/Time: Performed By: #### 3 4F #### [facility] [address] [place] [address] HYALINE CAST NONE SEEN Normal NONE SEEN [facility] Fire Inspector Comment on above: Order Comment: [facility] performed at: [employer], [employer] [facility], [address] [place] [address], [address] [place] [address], [address] [place] [address], Tmr Teacher: Clay Sparrow MD [facility] Date/Time: [facility] Results Received Date/Time: [facility] Reported Date/Time: Performed By: #### 3 4F #### [facility] [address] [place] [address] Ketones Ql (U) Negative Normal NEGATIVE [facility] Fire Inspector Comment on above: Order Comment: [facility] performed at: [employer], [employer] [facility], [address] [place] [address], [address] [place] [address], [address] [place] [address], Tmr Teacher: Clay Sparrow MD [facility] Date/Time: [facility] Results Received Date/Time: [facility] Reported Date/Time: Performed By: #### 3 4F #### [facility] [address] [place] [address] Leukocyte esterase Test strip Ql (U) TRACE Abnormal NEGATIVE [facility] Specialist Comment on above: Order Comment: [facility] performed at: [employer], [employer] [facility], [address] [place] [address], [address] [place] [address], [address] [place] [address], Tmr Teacher: Clay Sparrow MD [facility] Date/Time: [facility] Results Received Date/Time: [facility] Reported Date/Time: Performed By: #### 3 4F #### [facility] [address] [place] [address] Nitrite Ql (U) Negative Normal NEGATIVE [facility] Fire Inspector Comment on above: Order Comment: [facility] performed at: [facility], [employer] [facility], [address] [place] [address], [address] [place] [address], [address] [place] [address], Tmr Teacher: Clay Sparrow MD [facility] Date/Time: [facility] Results Received Date/Time: [facility] Reported Date/Time: Performed By: #### 3 4F #### [facility] [address] [place] [address] OCCULT BLOOD Negative Normal NEGATIVE [facility] Fire Inspector Comment on above: Order Comment: [facility] performed at: [facility], [employer] [facility], [address] [place] [address], [address] [place] [address], [address] [place] [address], Tmr Teacher: Clay Sparrow MD [facility] Date/Time: [facility] Results Received Date/Time: [facility] Reported Date/Time: Performed By: #### 3 4F #### [facility] [address] [place] [address] pH (U) 6.5 [pH] Normal 5.0-8.0 [facility] Fire Inspector Comment on above: Order Comment: [facility] performed at: [facility], [employer] [facility], [address] [place] [address], [address] [place] [address], [address] [place] [address], Tmr Teacher: Clay Sparrow MD [facility] Date/Time: [facility] Results Received Date/Time: [facility] Reported Date/Time: Performed By: #### 3 4F #### [facility] [address] [place] [address] Protein Ql (U) Negative Normal NEGATIVE [facility] Fire Inspector Comment on above: Order Comment: [facility] performed at: [facility], [employer] [facility], [address] [place] [address], [address] [place] [address], [address] [place] [address], Tmr Teacher: Clay Sparrow MD [facility] Date/Time: [facility] Results Received Date/Time: [facility] Reported Date/Time: Performed By: #### 3 4F #### [facility] [address] [place] [address] RBC NONE SEEN Normal < OR = 2 [facility] Fire Inspector Comment on above: Order Comment: [facility] performed at: [place], [employer] [facility], [address] [facility], [address] [place] [address], [address] [place] [address], Tmr Teacher: Clay Sparrow MD [facility] Date/Time: [facility] Results Received Date/Time: [facility] Reported Date/Time: Performed By: #### 3 4F #### [facility] [address] [place] [address] Specific gravity (U) [Rel density] 1.025 Normal 1.001-1.035 [facility] Fire Inspector Comment on above: Order Comment: [facility] performed at: [place], [employer] [facility], [address] [place] [address], [address] [place] [address], [address] [place] [address], Tmr Teacher: Clay Sparrow MD [facility] Date/Time: [facility] Results Received Date/Time: [facility] Reported Date/Time: Performed By: #### 3 4F #### [facility] [address] [place] [address] SQUAMOUS EPITHELIAL CELLS 0-5 Normal < OR = 5 [facility] Fire Inspector Comment on above: Order Comment: [facility] performed at: [place], [employer] [facility], [address] [place] [address], [address] [place] [address], [address] [place] [address], Tmr Teacher: Clay Sparrow MD [facility] Date/Time: [facility] Results Received Date/Time: [facility] Reported Date/Time: Performed By: #### 3 4F #### [facility] [address] [place] [address] WBC NONE SEEN Normal < OR = 5 [facility] Fire Inspector Comment on above: Order Comment: [facility] performed at: [facility], [facility], [address], [address] [facility], [place], [address], Tmr Teacher: Clay Sparrow MD [facility] Date/Time: [facility] Results Received Date/Time: [facility] Reported Date/Time: Performed By: #### 3 4F #### [facility] Default [address] [place] [address] Vitamin D 25-OHon 04-21-2021 VIT D 25 OH 52 ng/ml Normal >29 [facility] Fire Inspector Comment on above: Result Comment: Ashley min D Status Deficiency <20 ng/mL Insufficiency 20-29 ng/mL Optimal 30-100 ng/mL Possible Toxicity >=150 ng/mL Performed By: #### C BCAD, VITD, LIPD, CMP #### [facility] [address] [place] [id number] XR KNEE GENERAL 4V AP BOTH/P A BOTH/LAT/MERC LTon 12-04-2020 [facility] XR KNEE POST OP 3V AP/LAT/ME RCHANT LTon 04-01-2020 [facility] XR KNEE GENERAL 4V AP BOTH/P A BOTH/LAT/MERC LTon 12-20-2019 [facility] Basic Metabolic Panlon 12-05 Anion gap [Moles/Vol] 8 mmol/L Low 9-18 [facility] Calcium [Mass/Vol] 6.8 mg/dL Low 8.5-10.2 [facility] Chloride [Moles/Vol] 108 mmol/L High 97-105 [facility] CO2 [Moles/Vol] 20 mmol/L Low 22-30 [facility] Creatinine [Mass/Vol] 1.07 mg/dL High 0.58-0.96 [facility] eGFR- Amer. >60 Normal [facility] GFR/1.73 sq M predicted among non-blacks MDRD (S/P/Bld) [Vol rate/Area] 51 . Normal [facility] Comment on above: Result Comment: eGFR (Estimated [...] ospital Comment on above: Result Comment: The [place] Diabetes Association (ADA) provides guidance for cutoff [...] Standards of Medical Care in Diabetes 2016, [place] [employer]. Diabetes Care. 2016.39(Suppl 1). Potassium [Moles/Vol] 3.3 mmol/L Low 3.7-5.1 [facility] Sodium [Moles/Vol] 136 mmol/L Normal 136-144 [facility] Urea nitrogen [Mass/Vol] 21 mg/dL Normal 7-21 [facility] CBCon 12-06-2019 Absolute nRBC <0.01 Normal <0.01 [facility] Erythrocyte distribution width (RBC) [Ratio] 12.5 % Normal 11.5-15.0 [facility] Hematocrit (Bld) [Volume fraction] 30.3 % Low 36.0-46.0 [facility] Hemoglobin (Bld) [Mass/Vol] 9.5 g/dL Low 11.5-15.5 [facility] MCH (RBC) [Entitic mass] 30.6 pG Normal 26.0-34.0 [facility] MCHC (RBC) [Mass/Vol] 31.4 g/dL Normal 30.5-36.0 [facility] MCV (RBC) [Entitic vol] 97.7 fL Normal 80.0-100.0 [facility] Platelet mean volume (Bld) [Entitic vol] 10.2 fL Normal 9.0-12.7 [facility] l Platelets (Bld) [#/Vol] 188 10*3/uL Normal 150-400 [facility] RBC (Bld) [#/Vol] 3.10 10*6/uL Low 3.90-5.20 [facility] WBC (Bld) [#/Vol] 9.31 10*3/uL Normal 3.70-11.00 [facility] NURSING PROGon 12-06-2019 NURSING PROG HNO ID: [id number] Author: Tae (Rn) LOAN Alvarenga Service: Nursing Author Type: Registered Nurse Type: Nursing Progress Note Filed: 12/06/2019 4:24 PM Note Text: Nursing Progress Note Patient Name: Gilda Sorto Patient Location: [facility]/ Daily Note: 0745: awake and sitting up [...] CAREon 12-06-2019 PLAN OF CARE HNO ID: [id number] Author: Carlie Beltre ([employer]) Service: ? Author Type: ? 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, Right History of Breast Cancer Mass of Left Knee Tear of Lateral Meniscus of Left Knee Complex Tear of Lateral Meniscus of Left Knee As Current Injury Medication and Non-Pharmacologic VTE Prophylaxis/Anticoagula nts 12/05/19 1300 pneumatic compression stockings ([place]) 12/05/19 1300 graduated compression stockings ([place]) VTE Prophylaxis: VTE prophylaxis appropriate POST OPERATIVE COMPLICATIONS: Complicated by: uneventful/none SIGNATURE: Taz Dean DO PATIENT NAME: Gilda Sorto DATE: December 06, 2019 TIME: 9:46 AM PAGER/CONTACT #: ANNIE MARCUS#[phone] [facility] THERAPY NTon 12-06-2019 THERAPY NT HNO ID: [id number] Author: Jessica (Ot) Simon Service: ? Author Type: Occupational Therapist Type: Therapy (PT/OT/Speech/Resp) Filed: 12/06/2019 3:16 PM Note Text: Occupational Therapy Evaluation SERVICE DATE: 12/06/2019 SERVICE TIME: 1423 to 1500 ROOM: [place] [address] Recommended Discharge Disposition: Home Recommended Discharge Disposition [...] (ADL) Interventions Provided: Evaluation;Self Nursing Home Management (04883) $ Evaluation-Low (95403) Billed Units: 1 unit Self Nursing Home Management (30588) Treatment Minutes: 20 1 unit Skilled Intervention(s): [...] relating to: -functional transfers (use of leg certification engineer to assist surgical leg in/out of bed, [...] of tub or shower seat/bench w/ leg certification engineer, importance of grab bars and not bathing [...] Walker;Shower Bench;Wheelchair;Elevat ed Toilet Seat;Long Handled Shoe Horn;Spinner Open End Prior Functional Level: Within Functional Limits Prior [...] [facility] THERAPY NT HNO ID: [id number] Author: Yadira NavasPtElayne Sher Service: Physical Therapy Author Type: Physical Therapist Type: Therapy (PT/OT/Speech/Resp) Filed: 12/06/2019 3:32 PM Note Text: Physical Therapy Treatment SERVICE DATE: 12/06/2019 SERVICE TIME: 1334 to 1402 ROOM: [place] [address] Recommended Discharge Disposition: Outpatient Physical Therapy Anticipated [...] mobility to allow for full return to OF. Vital Signs Pre Assessment: BP Pre BP: [...] (ADL);Muscle Weakness (generalized) Interventions Provided: Therapeutic Exercise (52786);Gait Training (88918) Therapeutic Exercise (22316) Treatment Minutes: 13 1 unit Skilled Intervention(s): Instruction in therapeutic exercise Verbal and tactile cuing provided for supine HEP Education in importance of changing positions slowly, staying active Gait Training (95112) Treatment Minutes: 15 2 units Skilled Intervention(s): [...] Walker;Shower Bench;Wheelchair;Elevat ed Toilet Seat;Long Handled Shoe Horn;Spinner Open End Prior Functional Level: Within Functional Limits Prior [...] visit. SIGNATURE: Yadira Sher, PT DATE: December 06, 2019 TIME: 3:31 PM Please see discipline specific clinical documentation flowsheet for complete details for this therapy evaluation/treatment. SIGNATURE: Raymon Owens SPT PATIENT NAME: Gilda Sorto DATE: December 06, 2019 TIME: 2:35 PM [facility] THERAPY NT HNO ID: [id number] Author: Yadira NavasPtElayne Sher Service: Physical Therapy Author Type: Physical Therapist Type: Therapy (PT/OT/Speech/Resp) Filed: 12/06/2019 12:23 PM Note Text: Physical Therapy Treatment SERVICE DATE: 12/06/2019 SERVICE TIME: 1010 to 1050 ROOM: [place] [address] Recommended Discharge Disposition: Outpatient Physical Therapy Anticipated [...] ess on feet Interventions Provided: Therapeutic Exercise (89185);Gait Training (32187) Therapeutic Exercise (81629) Treatment Minutes: 15 1 unit Skilled Intervention(s): Instruction in therapeutic exercise Verbal and tactile cuing provided for proper HEP completion Education in importance of mobility (see flow sheet for exercises completed) Gait Training (24480) Treatment Minutes: 25 2 units Skilled Intervention(s): [...] DATE: December 06, 2019 TIME: 11:10 AM Normal [facility] ANES POSTPROC EVALon 020 ANES POSTPROC EVAL HNO ID: [id number] Author: Bayron Everett Service: ? Author Type: [...] December 05, 2019 TIME: 1:23 PM CSN: [id number] [facility] ANES PRE-OPon 12-05-2019 ANES PRE-OP HNO ID: [id number] Author: Bayron Everett Service: ? Author Type: [...] December 05, 2019 TIME: 7:11 AM CSN: [id number] [facility] BRIEF OP NOTon 12-05-2019 BRIEF OP NOT HNO ID: [id number] Author: Taz Dean Service: Orthopaedic Surgery Author Type: Physician Type: Brief Op Note Filed: 12/05/2019 10:38 AM Note Text: TOTAL KNEE ARTHROPLASTY BRIEF OPERATIVE / PROCEDURE NOTE LOG ID: [id number] Surgery/Procedure Date: 12/05/2019 Incision/Procedure Start Time: 8:08 AM Incision Close/Procedure End Time: 10:34 AM Surgeon(s)/Proceduralis t(s) and Garage Door Opener Installer(s): Surgeon(s) and Role: * Taz Dean - Primary Physician Garage Door Opener Installer: Gavin Ballard Procedure(s): Procedure(s) (LRB): ARTHROPLASTY REPLACE JOINT TOTAL KNEE (Left) Anesthesia: Monitored Anesthesia Care with spinal Peripheral Block Type: Saphenous/Adductor Approach: Median parapatellar Findings: Advanced DJD left knee Estimated Blood Loss: 75 mls Specimens: None Complications: None Implant: Implant Name Type Inv. Item Serial No. Sack Filler Lot No. LRB No. Used Action INSERT PERSONA 6-9 C-D POLYETHYLENE 10MM ARTICULAR POSTERIOR STABILIZED - [id number] Joint - Knee INSERT PERSONA 6-9 C-D POLYETHYLENE 10MM ARTICULAR POSTERIOR STABILIZED [employer] [id number] Left 1 Implanted COMPONENT 29MM ALL POLY PATELLAR PSN - [id number] Joint - Knee COMPONENT 29MM ALL POLY PATELLAR PSN [employer] [id number] Left 1 Implanted COMPONENT PERSONA 6 NARROW COCR FEMORAL CEMENTED POSTERIOR STABILIZE KNEE - [id number] Joint - Knee COMPONENT PERSONA 6 NARROW COCR FEMORAL CEMENTED POSTERIOR STABILIZE KNEE [employer] [id number] Left 1 Implanted BASEPLATE PERSONA 5D D TIVANIUM TIBIAL CEMENTED STEM KNEE LEFT - [id number] Joint BASEPLATE PERSONA 5D D TIVANIUM TIBIAL CEMENTED STEM KNEE LEFT [employer] [id number] Left 1 Implanted CEMENT SIMPLEX P BONE RADIOPAQUE FULL DOSE STERILE - [id number] Cement / Putty CEMENT SIMPLEX P BONE RADIOPAQUE FULL DOSE STERILE [employer] [id number] Left 1 Implanted Bearing Surface: Fixed Fixation: Cemented SSI Risk Factors: NA Constraint: Posterior Stabilized Other: None Pre-Op/Pre-Procedure Diagnosis: DJD left knee Post-Op/Post-Procedure Diagnosis: DJD left knee Weight Bearing Status: Weight Bearing As Tolerated SIGNATURE: Taz Dean DO PATIENT NAME: Gilda Sorto DATE: December 05, 2019 TIME: 10:36 AM PAGER/CONTACT #: [facility] CASE MGT INIT 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 Last discharge within 30 days: No Advance Directive: Current Advance Directive: Health Care Power of Bait Digger;Living Will In Chart: Yes Up To Date [...] Contact: Fareed Sorto Address: [address] [place] [address] [facility] Mobile Relation: Spouse Supportive Patient Contact:: Yes [...] Completely I feel financially burdened by my mvz-po-mjzrjs expenses for my prescription medication:: 0 - Disagree Completely Risk Score: 0 Patient is categorized as: Low risk < 2 Are you interested in bedside delivery of your medications? Yes Is Patient Psychosocially Complex?: No ASSESSMENT AND PLAN: Medical Needs: Medical Needs: None Psychosocial Needs: Psychosocial Needs: None FREEDOM OF CHOICE EXPLAINED: [place] of Choice Given: No Reason Not Given: No placements necessary POTENTIAL TRANSITION PLANS Outpatient Therapy Patient from home with spouse. Has equipment. Has OP PT on 12/09 at 11:45 in [place]. SIGNATURE: Yanna Barriga RN PATIENT NAME: Gilda Sorto DATE: December 05, 2019 TIME: 1:52 PM PAGER/CONTACT #: [phone] [facility] NURSING PROGon 12-05-2019 NURSING PROG HNO ID: [id number] Author: Ekaterina Garvin) LOAN Erickson Service: Nursing Author Type: Registered [...] OPERATIVE NOon 12-05-2019 OPERATIVE NO HNO ID: [id number] Author: Taz Dean Service: Orthopaedic Surgery Author Type: Physician Type: Operative Report Filed: 12/05/2019 8:42 PM Note Text: [facility] OPERATIVE REPORT PATIENT NAME: Gilda Sorto AGE: [age] year old SEX: female LOG ID: [id number] SURGERY DATE: 12/05/2019 SURGEON: Taz Dean D.O. SOLID TIRE TUBER MACHINE OPERATOR: Gavin Ballard PA-C, her role in the [...] patellar bone calipers?were? used?to measure the patient's soboba patella and guide the amount of?bone resection needed.? Following this, the articular side of the patella was? resected?with a?bone saw, taking the appropriate amount of bone from the patella.??The? patellar sizing guide was then positioned?and?the patient?matched a 29-mm patellar component.? The appropriate size patellar guide was?positioned and the 3 private secretary holes were drilled. The 29-mm trial patellar [...] followed by interrupted #1?Vicryl suture in a ocdizx-od-xwdcq alternating fashion, sealing off the remaining portions [...] this time.? Patient was then transferred to [facility], and taken to?the recovery room in stable condition having?tolerated the?procedure well.?? Sponge and needle counts were correct.? The case was? clean and? elective.? There were no complications. Incision Start: 8:08 AM Incision Stop: 10:34 AM SIGNATURE: Taz Dean DO DATE: December 05, 2019 TIME: 8:33 PM [facility] PT ED 12-05-2019 PT ED HNO ID: [id number] Author: Jazz (Rn) LOAN Hilario Service: ? Author Type: Registered Nurse Type: Patient Education Filed: 12/05/2019 6:55 AM Note Text: PRE OP LEARNING ASSESSMENT PROCEDURE/SURGERY: left TKR READINESS TO LEARN COGNITIVE ABILITY: Alert and oriented MOTIVATION TO LEARN: Eager FAMILY SUPPORT: None - Unavailable/disinterest ed PATIENT LEARNS BEST BY: Individual Instruction FACTORS AFFECTING LEARNING: None PHYSICAL LIMITATIONS AFFECTING LEARNING: None [facility] THERAPY NTon 12-05-2019 THERAPY NT HNO ID: [id number] Author: Yadira NavasPtElayne Sher Service: Physical Therapy Author Type: Physical Therapist Type: Therapy (PT/OT/Speech/Resp) Filed: 12/05/2019 5:45 PM Note Text: Physical Therapy Evaluation SERVICE DATE: 12/05/2019 SERVICE TIME: to 1703 ROOM: [place] [address] Recommended Discharge Disposition: Outpatient Physical Therapy Anticipated [...] on feet;Difficulty walking-musculoskeletal Interventions Provided: Evaluation;Gait Training (03313);Therapeutic Exercise (92513) $ Evaluation-Low (30253) Billed Units: 1 unit Therapeutic Exercise (80495) Treatment Minutes: 10 1 unit Skilled Intervention(s): Instruction in therapeutic exercise Verbal and tactile cuing provided for proper HEP completion Education in knee precautions and pain science Gait Training (10303) Treatment Minutes: 13 1 unit Skilled Intervention(s): [...] Toilet/Commode Gait Stairs Curb Step Car Transfer JH-HLM: 5: Standing (1 or more minutes) I reviewed and agree with the documentation corresponding to this therapy visit. SIGNATURE: Yadira Sher PT DATE: December 05, 2019 TIME: 5:45 PM Please see discipline specific clinical documentation flowsheet for complete details for this therapy evaluation/treatment. SIGNATURE: Raymon Owens, SPT PATIENT NAME: Gilda Sorto DATE: December 05, 2019 TIME: 5:30 PM Normal [facility] Type and Screenon 12-05-2019 ABO/RH(D) Positive [facility] CNPTeresa 12-04-2019 CNPN Telephone (AVPRAD) GILDA SORTO ([id number]) 1950 F Date Time Provider Department 12/04/19 [...] left knee [M17.12] 10/13/2017 Breast asymmetry between soboba breast and jennifer*12/02/2017 More... S/P partial mastectomy, right [Z90.11] 12/02/2017 More... History of breast cancer [Z85.3] 12/02/2017 More... Mass of left knee [R22.42] 01/05/2018 Tear of lateral meniscus of left knee [S83.282A]01/06/2018 More... Complex tear of lateral meniscus of left knee a*01/06/2018 Encounter Status:Closed by GAVIN BALLARD on 12/04/19 [facility] NURSING PROGon 11-26-2019 NURSING PROG HNO ID: [id number] Author: Stephanie Cuevas (Rn) LOAN Bryant Service: [...] of left knee [M17.12] Breast asymmetry between soboba breast and reconstructed breast [N65.1] S/P partial [...] Notes ([facility] [place] PROV ADULT): Ashleigh Alex APRN.BAIT DIGGER 11/28/2019 8:45 AM Signed Please call patient and advise that on pre-op labs UA showed leukocytes and urine culture revealed possible contaimination Due to surgery being 12/04- will treat with low dose antibiotics for possible infection Rx for Macrobid sent to pharmacy. Advise to start AMBER and take BID for 7 days Thank you Ashleigh Alex APRN.[facility] Na Beltre LPN 11/28/2019 8:56 AM Signed Patient aware. Pharmacy verified. 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 Na Beltre LPN [facility] Vital Signs Date Time Vital Sign Value Performing Clinician Facility 02-21-2024 12:55-0400 Body height 160.02 cm MD Gonsalo Hubbard Work Phone: [facility] 02-21-2024 12:55-0400 Body temperature 97.8 [degF] MD Gonsalo Hubbard Work Phone: [facility] 02-21-2024 12:55-0400 Body weight 91 kg MD Gonsalo Hubbard Work Phone: [facility] 02-21-2024 12:55-0400 Diastolic blood pressure 87 mm[Hg] MD Gonsalo Hubbard Work Phone: [facility] 02-21-2024 12:55-0400 Heart rate 93 /min MD Gonsalo Hubbard Work Phone: [facility] 02-21-2024 12:55-0400 Respiratory rate 18 /min MD Gonsalo Hubbard Work Phone: [facility] 02-21-2024 12:55-0400 SaO2% (BldA) [Mass fraction] 99 % MD Gonsalo Hubbard Work Phone: [facility] 02-21-2024 12:55-0400 Systolic blood pressure 145 mm[Hg] MD Gonsalo Hubbard Work Phone: [facility] 06-30-2023 09:46-0500 Body mass index (BMI) [Ratio] 35.07 kg/m2 Samia Warren NUCLEAR LICENSING ENGINEER Work Phone: [facility] 06-30-2023 09:46-0500 Body temperature 97.11 [degF] Samia Guanon NUCLEAR LICENSING ENGINEER Work Phone: [facility] 06-30-2023 09:46-0500 Body weight 89.81 kg Samia Warren NUCLEAR LICENSING ENGINEER Work Phone: [facility] 06-30-2023 09:46-0500 Diastolic blood pressure 80 mm[Hg] Samia Guanon NUCLEAR LICENSING ENGINEER Work Phone: [facility] 06-30-2023 09:46-0500 Heart rate 96 /min Samia Guanon NUCLEAR LICENSING ENGINEER Work Phone: [facility] 06-30-2023 09:46-0500 SaO2% (BldA) [Mass fraction] 97 % Samia Warren NUCLEAR LICENSING ENGINEER Work Phone: [facility] 06-30-2023 09:46-0500 Systolic blood pressure 128 mm[Hg] Samia Guanon NUCLEAR LICENSING ENGINEER Work Phone: [facility] 04-16-2022 11:52-0500 Body temperature 98.1 [degF] Sharon Saldivar APRN.BAIT DIGGER Work Phone: [facility] 04-16-2022 11:52-0500 Diastolic blood pressure 60 mm[Hg] Sharon Saldivar APRN.BAIT DIGGER Work Phone: [facility] 04-16-2022 11:52-0500 Heart rate 85 /min Sharon Saldivar APRN.BAIT DIGGER Work Phone: [facility] 04-16-2022 11:52-0500 Respiratory rate 20 /min Sharon Saldivar APRN.BAIT DIGGER Work Phone: [facility] 04-16-2022 11:52-0500 SaO2% (BldA) [Mass fraction] 100 % Sharon Saldivar APRN.BAIT DIGGER Work Phone: [facility] 04-16-2022 11:52-0500 Systolic blood pressure 117 mm[Hg] Sharon Saldivar APRN.BAIT DIGGER Work Phone: [facility] Encounters Encounter Date Encounter Type Care Provider Facility Start: 02-21-2024 End: 02-21-2024 Emergency department patient visit Gonsalo Hubbard Facility:[facility] Start: 01-06-2024 End: 01-06-2024 ambulatory GRAZYNA R RISALITI Not Available Start: 12-28-2023 End: 12-28-2023 ambulatory GRAZYNA R RISALITI Not Available Start: 09-26-2023 End: 09-26-2023 ambulatory GONSALO HUBBARD Not Available Start: 06-30-2023 End: 06-30-2023 Office outpatient visit 15 minutes Samia Warren NP Work Phone: [facility] Comment on above: Viral upper respirat ory tract infection (Primary Dx); Cough, unspecified type; Insomnia, unspecified type; Morbid obesity (CMS/HCC); History of breast cancer Start: 06-30-2023 End: 06-30-2023 ambulatory GONSALO HUBBARD Not Available Start: 04-26-2023 End: 04-26-2023 ambulatory GONSALO HUBBARD Not Available Start: 04-19-2023 End: 04-19-2023 ambulatory Gonsalo Hubbard Facility:[facility] Start: 04-12-2023 End: 04-12-2023 ambulatory KAYLA MATA Facility:[facility] Start: 04-12-2023 End: 04-12-2023 Subsequent hospital visit by physician [facility] [employer] Work Phone: Radiology Comment on above: Pain [R52] Start: 05-04-2022 ambulatory JALEN DELAROSA Facility :UNKNOWN Start: 04-16-2022 End: 04-16-2022 ambulatory GONSALO HUBBARD Facility:[facility] Start: 04-16-2022 Documentation procedure Mammog samantha Coordinator [facility] Start: 04-16-2022 Letter encounter Mammography Coordinator [facility] Department Start: 04-16-2022 End: 04-16-2022 ambulatory Sharon Saldivar APRN.BAIT DIGGER Work Phone: Hematology/Oncology Comment on above: Encounter for screen ing mammogram for breast cancer (Primary Dx); Stage 1 breast cancer, ER-, left (HCC) Start: 04-16-2022 End: 04-16-2022 Patient encounter procedure Sharon Saldivar RUPERT.BAIT DIGGER Work Phone: [facility] Start: 04-16-2022 End: 04-16-2022 Subsequent hospital visit by physician [facility] Work Phone: Mammography Comment on above: Encounter for screen ing mammogram for breast cancer [Z12.31] Start: 01-21-2022 ambulatory JALEN GOBEZIE Facility :UNKNOWN Start: 01-12-2022 End: 01-12-2022 ambulatory JALEN GOBEZIE Facility:UNKNOWN Start: 12-15-2021 End: 12-15-2021 ambulatory JALEN GOBEZIE Facility:UNKNOWN Start: 12-09-2021 ambulatory JALEN GOBEZIE Facility :UNKNOWN Start: 12-09-2021 Encounter for other preprocedural examination JALEN GOBEZIE Facility:UNKNOWN Start: 11-25-2021 End: 11-25-2021 Subsequent hospital visit by physician Mary Main F30 (I-Stat) Work Phone: Radiology Start: 11-20-2021 Orders Only Sharon Shirley flip FAJARDON.BAIT DIGGER Work Phone: Hematology/Oncology Comment on above: Encounter [...] 12-04-2020 [facility] Comment on above: S/P total knee arthr oplasty, left [Z96.652] Start: 04-01-2020 End: 04-01-2020 Subsequent hospital visit by physician Xr [facility] Work Phone: Radiology Comment on above: post op Start: 12-20-2019 End: 12-20-2019 Subsequent hospital visit by physician Xr [facility] General Radiology Comment on above: Primary osteoarthrit is of left knee [M17.12] Procedures Date Procedure Procedure Detail Performing Clinician Start: 02-21-2024 Plain X-ray of left wrist MD Gonsalo Hubbard Work Phone: Start: 02-21-2024 X-ray of right knee, four views MD Gonsalo Hubbard Work Phone: Start: 06-30-2023 STATUS COVID-19/FLU Obie Warren NUCLEAR LICENSING ENGINEER Work Phone: Start: 04-12-2023 Radex hand minimum 3 views Kayla Mata MD Work Phone: Start: 04-16-2022 JAKE SCREENING W JOE Saldivar CHIEF CONTRACT OFFICER.BAIT DIGGER Work Phone: Start: 04-16-2022 Mammography Sharon Hernandez CHIEF CONTRACT OFFICER.BAIT DIGGER Work Phone: Start: 11-25-2021 Ct angio abd&plvis [...] Work Phone: Start: 11-05-2020 Colonoscopy Samia Warren NUCLEAR LICENSING ENGINEER Work Phone: Start: 04-01-2020 Radiologic examinati on knee 3 views Gavin Ballard PA-C Work Phone: Start: 12-20-2019 Radiologic [...] Screening for malign ant neoplasm of colon [facility] Start: 12-09-2024 Diabetes Screening Diabetes Screenin g [facility] Start: 04-26-2024 Medicare Annual Well ness (AWV) Medicare Annual Wellness (AWV) [facility] Start: 04-24-2024 End: 04-24-2024 Patient encounter procedure 04/24/2024 1:00 PM EST Office Visit [facility] [address] [facility] [address] [place] [id number] Gonsalo Hubbard MD [address] [facility] [address] [place] [address] [facility] Start: 01-15-2024 Covid-19 Vaccine ( season) Covid-19 Vaccine ( season) [facility] Start: 01-15-2024 Influenza vaccination Influenza Vacc ine (#1) [facility] Start: 11-25-2023 DIABETES SCREEN DIABETES SCREEN [facility] Start: 11-25-2023 Diabetes Screening Diabetes Screenin g [facility] Start: 05-16-2023 Advance Directive Discussion Advance Directive Discussion [facility] Start: 04-16-2023 BP CONTROLLED (<130/80) BP CONTROLLE D (<130/80) [facility] Start: 04-16-2023 End: 05-16-2023 AJKE SCREENING JAKE SCREENING Radiology Routine Encounter for screening mammogram for breast cancer Expected: 04/16/2023, Expires: 05/16/2023 [facility] Work Phone: Comment on above: Expected: 04/16/2023 , Expires: 05/16/2023 Start: 04-16-2023 Mammography [facility] Start: 04-16-2023 Screening for malign ant neoplasm of breast Mammogram Screening [facility] Start: 01-14-2023 Covid-19 Vaccine ( season) Covid-19 Vaccine ( season) [facility] Start: 01-14-2023 Influenza vaccination Influenza Vacc ine (#1) [facility] Start: 05-16-2022 Advance Directive Discussion Advance Directive Discussion [facility] Start: 05-16-2022 Depression Assessment Depression Ass essment [facility] Start: 01-14-2022 Influenza vaccination INFLUENZA (#1) [facility] Start: 11-24-2021 Mammography MAMMOGRAM [facility] Start: 11-21-2021 Adult depression screening assessment DEPRESSION SCREENING [facility] Start: 09-23-2021 End: 11-23-2021 CREATININE BLD CREATININE BLD Lab Routine Renal artery aneurysm (HCC) Expected: 09/23/2021, Expires: 11/23/2021 [facility] Work Phone: Comment on above: Expected: 09/23/2021 , Expires: 11/23/2021 Start: 08-08-2021 COVID-19 VACCINE (3 - Booster for Moderna series) COVID-19 VACCINE (3 - Booster for Moderna series) [facility] Start: 07-11-2021 COVID-19 VACCINE (4 - Booster for Moderna series) COVID-19 VACCINE (4 - Booster for Moderna series) [facility] Start: 05-16-2021 ADVANCE DIRECTIVE DISCUSSION ADVANCE DIRECTIVE DISCUSSION [facility] Start: 05-16-2021 DEPRESSION ASSESSMENT DEPRESSION ASS ESSMENT [facility] Start: 09-06-2017 Lipid 1996 panel - S compa or Plasma Lipid Screening [facility] Start: 09-06-2017 Lipid panel Lipid Screening [facility] Start: 09-06-2017 LIPID SCREEN LIPID SCREEN [facility] Start: 2015 BONE DENSITY BONE DENSITY [facility] Start: 2015 Bone Density Screening Bone Density Screening [facility] Start: 2015 PNEUMOCOCCAL: 65+ (1 - PCV) PNEUMOCOCCAL: 65+ (1 - PCV) [facility] Start: 2015 PNEUMOVAX AGE 65 AND OVER WITH 5YR LOOKBACK (#1) PNEUMOVAX AGE 65 AND OVER WITH 5YR LOOKBACK (#1) [facility] Start: 2015 Screening for osteoporosis Bone Density Screening [facility] Start: 11-08-2014 Urine microalbumin profile DTaP,Tdap,Td Vaccine (1 - Tdap) [facility] Start: 2010 RSV Vaccine (1 - 1-d ose 60+ series) RSV Vaccine (1 - 1-dose 60+ series) [facility] Start: 2000 SHINGRIX VACCINE (1 of 2) SHINGRIX VACCINE (1 of 2) [facility] Start: 1995 COLOGUARD (FIT-DNA) COLOGUARD (FIT-D NA) [facility] Start: 1995 Colonoscopy COLONOSCOPY [facility] Start: 1995 COLORECTAL CANCER SCREENING COLORECTAL CANCER SCREENING [facility] Start: [address] COLONOGRAPHY [facility] Start: 1995 FECAL OCCULT BLOOD FECAL OCCULT BLOO D [facility] Start: 1995 Screening for malign ant neoplasm of colon [facility] Start: 1995 SIGMOIDOSCOPY SIGMOIDOSCOPY [facility] Start: 1969 Urine microalbumin profile DTAP,TDAP,TD (1 - Tdap) [facility] Start: 1968 ANNUAL PCP TEAM FRYER OPERATOR LOIS DISEASE VISIT ANNUAL PCP TEAM CHRONIC DISEASE VISIT [facility] Start: 1968 Anxiety Screening Anxiety Screening [facility] Start: 1968 BP CONTROLLED (<130/80) BP CONTROLLE D (<130/80) [facility] Start: 1968 Depression Screening Depression Scre ening [facility] Start: 1968 HEPATITIS C SCREENING HEPATITIS C [facility] Start: 1968 Hepatitis C screening Hepatitis C [facility] Start: 1950 Screening for malign ant neoplasm of colon [facility] End: 10-23-2022 Ct angio abd&plvis cntrst mtrl w/wo cntrst img CTA ABD/PEL WO/W IVCON Radiology Routine Renal artery aneurysm (HCC) 1 Occurrences starting 09/23/2021 until 10/23/2022 [facility] Work Phone: Comment on above: 1 Occurrences starti ng 09/23/2021 until 10/23/2022 Patient Education General Trauma (DC) [facility] Work Phone: Patient referral [facility] Work Phone: End: 12-20-2022 Screening mammography bi 2-view breast inc cad JAKE SCREENING Radiology Routine Encounter for screening mammogram for breast cancer 1 Occurrences starting 11/20/2021 until 12/20/2022 [facility] Work Phone: Comment on above: 1 Occurrences starti ng 11/20/2021 until 12/20/2022 [facility]izations Immunization Date Immunization Notes Care Provider Sugey anaya 03-19-2023 Influenza, Seasonal, Quadrivalent, Adjuvanted Samia Warren NUCLEAR LICENSING ENGINEER Work Phone: [facility] 03-19-2023 influenza virus vaccine, unspecified formulation [facility] [place] Work Phone: [facility] 03-30-2022 SARS-COV-2 (COVID-19 ) vaccine, mRNA, spike protein, LNP, bivalent, PF Samia Chadd-Maria Esther NUCLEAR LICENSING ENGINEER Work Phone: [facility] 03-12-2022 Influenza, High-dose Seasonal, Quadrivalent, Preservative Free Samia Chadd-Maria Esther NUCLEAR LICENSING ENGINEER Work Phone: [facility] 03-12-2022 influenza virus vaccine, unspecified formulation [facility] 03-10-2021 COVID-19 mRNA-1273 (Moderna) MD Gonsalo Hubbard Work Phone: [facility] 02-12-2021 Influenza, High-dose Seasonal, Quadrivalent, Preservative Free Samia Chadd-Maria Esther NUCLEAR LICENSING ENGINEER Work Phone: [facility] 07-21-2020 COVID-19 vaccine, fu ll dose (MODERNA) Ct (I-Stat) Work Phone: [facility] 06-23-2020 COVID-19 vaccine, fu ll dose (MODERNA) Ct (I-Stat) Work Phone: [facility] 01-17-2020 influenza, high dose seasonal, preservative-free Samia Chadd-Maria Esther NUCLEAR LICENSING ENGINEER Work Phone: [facility] 12-24-2019 zoster vaccine recombinant Samia Chadd-Maria Esther NUCLEAR LICENSING ENGINEER Work Phone: [facility] 10-16-2019 zoster vaccine recombinant Samia Chadd-Maria Esther NUCLEAR LICENSING ENGINEER Work Phone: [facility] 03-19-2019 pneumococcal polysaccharide vaccine, 23 valent Samia Chadd-Maria Esther NUCLEAR LICENSING ENGINEER Work Phone: [facility] 03-01-2017 pneumococcal polysaccharide vaccine, 23 valent Samia Chadd-Maria Esther NUCLEAR LICENSING ENGINEER Work Phone: [facility] 02-13-2017 influenza, injectabl e, quadrivalent, preservative free Samia Chadd-Maria Esther NUCLEAR LICENSING ENGINEER Work Phone: [facility] 12-06-2016 hepatitis A and hepatitis B vaccine Samia Chadd-Maria Esther NUCLEAR LICENSING ENGINEER Work Phone: [facility] 05-28-2016 hepatitis A and hepatitis B vaccine Samia Chadd-Maria Esther NUCLEAR LICENSING ENGINEER Work Phone: [facility] 04-27-2016 hepatitis A and hepatitis B vaccine Samia Chadd-Maria Esther NUCLEAR LICENSING ENGINEER Work Phone: [facility] 04-27-2016 typhoid capsular polysaccharide vaccine Samia Chadd-Maria Esther NUCLEAR LICENSING ENGINEER Work Phone: [facility] 03-24-2015 pneumococcal conjuga te vaccine, 13 valent Samia Chadd-Maria Esther NUCLEAR LICENSING ENGINEER Work Phone: [facility] 03-20-2015 influenza, injectabl e, quadrivalent, preservative free Samia Chadd-Maria Esther NUCLEAR LICENSING ENGINEER Work Phone: [facility] 11-07-2014 tetanus and diphther ia toxoids, adsorbed, preservative free, for adult use (2 Lf of tetanus toxoid and 2 Lf of diphtheria toxoid) Samia Chadd-Maria Esther NUCLEAR LICENSING ENGINEER Work Phone: [facility] 01-08-2013 zoster vaccine, live Samia Warren NUCLEAR LICENSING ENGINEER Work Phone: [facility] Healthcare Payers Date Payer Category Payer Self-pay 2021 Medicare AETNA MEDICARE A ETNA MEDICARE PPO [id number] 2021-Present [phone] [address] [place] [address] PPO [id number] 2021 Private Health Insurance 101 [id number] 2019 Medicare AETNA MEDICARE A ETNA MEDICARE PPO [id number] 2019-Present [phone] [address] [place] [address] PPO [id number] 2019 Medicare [id number] 1950 Unknown [id number] 93 1950 Unknown [id number] 1950 Unknown [id number] 93 1950 Unknown [id number] [id number] 1950 Unknown [id number] 93 1950 Unknown [id number] [id number] 259 1950 Unknown [id number] [id number] 259 1950 Unknown [id number] [id number] 259 1950 Unknown [id number] [id number] 259 1950 Unknown [id number] [id number] 259 Medicare Medicare [id number] Unknown [id number] 31 Unknown [id number] 31 Social History Date Type Detail Facility Start: 05-01-2012 End: 02-21-2024 Tobacco smoking status NHIS Never smoked tobacco [facility] Start: 11-24-2020 End: 04-12-2023 Alcohol intake Current drinker of alcohol (finding) [facility] Start: 11-26-2019 End: 12-05-2019 History SDOH Alcohol Frequency 5 [facility] Start: 11-26-2019 End: 12-05-2019 History SDOH Alcohol Std Drinks 1 [facility] Start: 11-26-2019 History SDOH Alcohol Comment A GLASS OF WINE ALMOST EVERY NIGHT BEFORE BED [facility] Start: 12-05-2019 History SDOH Transport Med 2 [place] [facility] Start: 1950 Sex Assigned At Not on file [facility] Start: 09-12-2021 End: 09-22-2021 Exposure to SARS-CoV-2 (event) Unable to assess [facility] Start: 11-20-2019 End: 04-16-2022 Exposure to SARS-CoV-2 (event) Not sure [facility] Start: 05-01-2012 End: 04-12-2023 Tobacco use and exposure Smokeless tobacco non-user [facility] Start: 11-26-2019 End: 04-12-2023 [facility]: Start: 11-26-2019 End: 04-12-2023 Alcohol Use Disorder Identification Test - Consumption [AUDIT-C] [facility] Work Phone: How often to you hav e a drink containing alcohol? 4 or more times a week [facility] Work Phone: How many standard dr inks containing alcohol do you have on a typical day? 1 or 2 [facility] Work Phone: How often do you hav e 6 or more drinks on 1 occasion? Never [facility] Work Phone: How hard is it for y ou to pay for the very basics like food, housing, medical care, and heating Not hard at all [facility] (I/We) worried kev er (my/our) food would run out before (I/we) got money to buy more. Never true [facility] Start: 06-30-2023 Alcohol intake Ex-drinker (finding) [facility] Start: 01-15-2023 Alcohol Comment caffeine: 1-2 cups per day of coffee [facility] Start: 1950 Sex Assigned At Female [facility] Start: 12-07-2022 Gender identity Identifies as female gender (finding) [facility] Medical Equipment Procedure Code Equipment Code Equipment Origin al Text Equipment Identifier Dates Cement Simplex P Bone Radiopaque Full Dose Sterile - [id number] Start: 12-05-2019 [place] Cv 6x6in Thk1.65mm Ptfe - [id number] Start: 09-12-2012 Insert Persona 6 -9 C-D Polyethylene 10mm Articular Posterior Stabilized - [id number] Start: 12-05-2019 Component 29mm A ll Poly Patellar Psn - [id number] Start: 12-05-2019 Component Person a 6 Narrow Cocr Femoral Cemented Posterior Stabilize Knee - [id number] Start: 12-05-2019 Baseplate Person a 5d D Tivanium Tibial Cemented Stem Knee Left - [id number] Start: 12-05-2019 Clinical Notes 12-20-2019 to 06-30-2023 [...] 12/02/2017 Added automatically from request for surgery [id number] Tear of lateral meniscus of knee 01/06/2018 Added automatically from request for surgery [id number] Tonsillitis REVIEW OF SYMPTOMS: Review of Systems [...] follow-ups on file. documented in this encounter [facility] 04-12-2023 Note HNO ID: [id number] Author: Kayla Mata MD Service: ? Author Type: Physician Type: Progress Notes Filed: 04/12/2023 4:51 PM Note Text: PLASTIC SURGERY DEPARTMENT [facility] Hand Surgery Note [x] New referred [...] What........... Reason:........... Upp (more content not included)... [facility] 04-16-2022 Note HNO ID: [id number] Author: Sharon Saldivar APRN.BAIT DIGGER Service: ? Author Type: Nurse Practitioner Type: [...] which included preparing to see the patient, [id number] patient care, completing clinical documentation, performing a medically appropriate examination, counseling and educating the patient/family/caregiver, ordering medications, tests, or procedures, communicating with other HCPs (not separately reported), independently interpreting results (not separately reported), communicating results to the patient/family/caregiver, and care coordination (not separately reported). Sharon Saldivar APRN.[facility] 04-16-2022 Note HNO ID: [id number] Author: RT Mario(Mason) Service: ? Author Type: Technologist Type: Progress [...] IV DATA: Not applicable SIGNED BY: RT Mario(Mason) April 16, 2022 11:39 AM [facility] 04-16-2022 History of Present illness [...] which included preparing to see the patient, [id number] patient care, completing clinical documentation, performing a medically appropriate examination, counseling and educating the patient/family/caregiver, ordering medications, tests, or procedures, communicating with other HCPs (not separately reported), independently interpreting results (not separately reported), communicating results to the patient/family/caregiver, and care coordination (not separately reported). Sharon Saldivar APRN.AMARI documented in this encounter [facility] 04-16-2022 Nurse Note Additional intake questions: Has the patient had fever, nausea, vomiting, diarrhea, constipation, fatigue for > 1 week? No Does the patient have a decreased appetite? No Does patient want to see a Development Team Lead? No (yes to any of above refer patient to schedulers for dietitian appointment) ) Does patient have any new or increased numbness or tingling of extremities? No Is patient interested in fertility information? No Does patient need any prescription refills? No Does patient have an advanced directive in place? Yes, copies are in Epic documented in this encounter [facility] 04-16-2022 Miscellaneous Notes April 16, 2022 PID: [id number] Gilda Sorto [address] [place] [address] Dear Ms. Sorto, We are pleased to [...] report will be kept on file at [facility] as part of your permanent medical record and are available for your continuing care. Thank you for allowing us to help in meeting your health care needs. Sincerely, Dr. Perez Interpreting Radiologist [facility] (Normal over 40) documented in this encounter [facility] 04-16-2022 History of Present illness Narrative [...] 2022 11:39 AM documented in this encounter [facility] 11-25-2021 History of Present illness Narrative [...] TIME: 12:06 PM documented in this encounter [facility] 09-21-2021 Miscellaneous Notes Mrs Sorto called and she would like to schedule her yearly follow up appointment with DR. Ramirez [place] and cell number: [phone] Kind Regards, Nima Wilkinson documented in this encounter [facility] 04-29-2021 Note HISTORY: Bone densit y [...] signed by Gonsalo Alvarez on 04/29/2021 [id number] [facility] Fire Inspector 04-01-2020 History of Present illness Narrative Radiology [...] 2020 1:04 PM documented in this encounter [facility] 12-20-2019 History of Present illness Narrative [...] 2019 12:45 PM documented in this encounter [facility] Evaluation note Diagnosis Renal artery aneurysm (HCC)- Primary Aneurysm of renal artery Abdominal aortic aneurysm without rupture (HCC) Abdominal aneurysm without mention of rupture [facility] [place] Diagnosis Encounter for screening mammogram for breast cancer- Primary [facility] [place] [facility]* Diagnosis Renal artery aneurysm (HCC) Aneurysm of renal artery documented in this encounter [facility] note* Diagnosis Encounter for screening mammogram for breast cancer- Primary Stage 1 breast cancer, ER-, left (HCC) documented in this encounter [facility] note* Diagnosis Encounter for screening mammogram for breast cancer [facility] [place] [facility]* Diagnosis S/P TKR (total knee replacement), left [facility] [place] [facility]* Diagnosis Primary osteoarthritis of left knee Primary localized osteoarthrosis, lower leg [facility] [place] [facility]* Diagnosis S/P total knee arthroplasty, left [facility] [place] [facility]* Diagnosis Viral upper respiratory tract infection- Primary Acute upper respiratory infections of unspecified site Cough, unspecified type Insomnia, unspecified type Morbid obesity (CMS/HCC) Morbid obesity History of breast cancer Personal history of malignant neoplasm of breast [facility] [place] [facility]* Diagnosis Preop examination- Primary Preoperative examination, unspecified Primary osteoarthritis of left knee Primary localized osteoarthrosis, lower leg Renal artery aneurysm (HCC) Aneurysm of renal artery Essential hypertension Unspecified essential hypertension History of breast cancer Personal history of malignant neoplasm of breast Pain Generalized pain [facility] note[facility] assessment [facility] Work Phone: Reason for referral (narrative)* Diagnostic Procedure Only (Routine) - Pending Review Specialty Diagnoses / Procedures Referred By Contac t Referred To Contact [facility] Diagnoses Encounter for screening mammogram for breast cancer Procedures JAKE SCREENING SCREENING MAMMOGRAPHY BI 2-VIEW BREAST INC [facility] Arcenio RUPERT Herrera.BAIT DIGGER [address] [address] [facility] [address] [place] [address] Referral ID Status Reason Start Date Expiration Date Visits Requested Visits Authorized [id number] Pending Review Auto-Generat ed Referral 11/20/2021 12/20/2022 1 1 [facility] for referral (narrative)* Diagnostic Procedure Only (Routine) - Pending Review Specialty Diagnoses / Procedures Referred By Radhaac t Referred To Contact BR IMAG[facility] Diagnoses Encounter for screening mammogram for breast cancer Procedures JAKE SCREENING SCREENING MAMMOGRAPHY BI 2-VIEW BREAST INC [facility] Sharon Saldivar APRN.BAIT DIGGER [address] [address] [facility] [address] [place] [address] Referral ID Status Reason Start Date Expiration Date Visits Requested Visits Authorized [id number] Pending Review Auto-Generat ed Referral 04/16/2023 05/16/2023 1 1 [facility] for referral (narrative)* Diagnostic Procedure Only (Routine) - Closed Specialty Diagnoses / Procedures Referred By Contac t Referred To Contact XR IMAGING Diagnoses Pain Procedures XR WRIST GENERAL 3V PA/LAT/OBL BILATERAL RADEX WRIST COMPLETE MINIMUM 3 VIEWS Kayla Mata MD [address] [place] [address] [place] [address] Referral ID Status Reason Start Date Expiration Date V isits Requested Visits Authorized [id number] Closed Auto-Generate d Referral 03/21/2023 04/19/2024 1 1 * Diagnostic Procedure Only (Routine) - Closed Specialty Diagnoses / Procedures Referred By Contac t Referred To Contact XR IMAGING Diagnoses Pain Procedures XR HAND GENERAL 3V PA/LAT/OBL BILATERAL RADEX HAND MINIMUM 3 VIEWS Kayla Mata MD [address] [place] [address] Referral ID Status Reason Start Date Expiration Date V isits Requested Visits Authorized [id number] Closed Auto-Generate d Referral 03/21/2023 04/19/2024 1 1 [facility] Summary Purpose Family History Relationship Condition Age at Onset Recorded Date/T devon father Unknown Heart disease Unknown Advance Directives Documents on File Type Date Recorded 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 Advance Directive(s) Advance Directive(s) 12/05/2019 6:09 AM Advance Directive(s) 04/20/2018 10:36 AM Advance Directive(s) 04/12/2018 2:54 PM Advance Directive(s) 09/18/2012 9:11 PM Documents on File Type Date Recorded 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 Advance Directive(s) Advance Directive(s) 12/05/2019 6:09 AM Advance Directive(s) 04/20/2018 10:36 AM Advance Directive(s) 04/12/2018 2:54 PM Advance Directive(s) 09/18/2012 9:11 PM Documents on File Type Date Recorded 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 Note HNO ID: [id number] Author: Melissa Mccarthy Service: ? Author Type: Nurse Extension Agent Type: Anesthesia Procedure Notes Filed: 12/05/2019 7:44 [...] (more content not included)... Note HNO ID: [id number] Author: Melissa Mccarthy Service: ? Author Type: Nurse Extension Agent Type: Anesthesia Procedure Notes Filed: 12/05/2019 7:45 AM Note Text: ANESTHESIOLOGY PROCEDURE NOTE Spinal Block General Information Procedure Start Time/Medication Administration: 12/05/2019 7:39 AM Patient location during procedure: ORTimeout Performed Pre-procedure: timeout performed Consent Obtained: Yes (via Surgical Consent) Patient identity confirmed: arm band Reason for Block: primary surgical anesthetic Staffing ENVELOPE PRESS OPERATOR: Jailene Mccarthy Preparation Sterility Preparation: hand hygiene [...] not included)... Procedure Findings Note HNO ID: [id number] Author: Melissa Mccarthy Service: ? Author Type: Nurse Extension Agent Type: Anesthesia Procedure Notes Filed: 12/05/2019 7:44 [...] (more content not included)... Note HNO ID: [id number] Author: Melissa Mccarthy Service: ? Author Type: Nurse Extension Agent Type: Anesthesia Procedure Notes Filed: 12/05/2019 7:45 AM Note Text: ANESTHESIOLOGY PROCEDURE NOTE Spinal Block General Information Procedure Start Time/Medication Administration: 12/05/2019 7:39 AM Patient location during procedure: ORTimeout Performed Pre-procedure: timeout performed Consent Obtained: Yes (via Surgical Consent) Patient identity confirmed: arm band Reason for Block: primary surgical anesthetic Staffing ENVELOPE PRESS OPERATOR: Jailene Ernst (Customer Manager) Fabio Preparation Sterility Preparation: hand hygiene [...] CNTRST MTRL W/WO CNTRST Paco Haddad MD [address] Imaging Referral ID Status Reason Start Date Expiration Date Visits Requested Visits Authorized [id number] Authorized Auto-Generat ed Referral 09/23/2021 10/23/2022 1 1 Chief Complaint and Reason for Visit Chief Complaint Fall, knee injury Additional Source Comments INFORMATION SOURCE (unrecogn ized section and content) DATE CREATED AUTHOR 12/08/2019 [facility] DATE CREATED AUTHOR AUTHOR'S ORGANIZ ATION 10/22/2021 [facility] dical Specialist DATE CREATED AUTHOR AUTHOR'S ORGANIZ ATION 05/08/2022 [facility] DATE CREATED AUTHOR AUTHOR'S ORGANIZ ATION 04/14/2023 [facility] DATE CREATED AUTHOR AUTHOR'S ORGANIZ ATION 01/10/2024 [facility] dical Specialists EPIC DATE CREATED AUTHOR AUTHOR'S ORGANIZ ATION 02/23/2024 [facility] Source Comments (unrecognize d section and content) In the event this informatio n is protected by the Federal Confidentiality of Alcohol and Drug Abuse Patient Records regulations: The Federal rules restrict any use of the information to criminally investigate or prosecute any alcohol or drug abuse patient.[facility] the event this information is protected by the Federal Confidentiality of Alcohol and Drug Abuse Patient Records regulations: The Federal rules restrict any use of the information to criminally investigate or prosecute any alcohol or drug abuse patient.[facility] the event this information is protected by the Federal Confidentiality of Alcohol and Drug Abuse Patient Records regulations: The Federal rules restrict any use of the information to criminally investigate or prosecute any alcohol or drug abuse patient.[facility] the event this information is protected by the Federal Confidentiality of Alcohol and Drug Abuse Patient Records regulations: The Federal rules restrict any use of the information to criminally investigate or prosecute any alcohol or drug abuse patient.[facility] the event this information is protected by the Federal Confidentiality of Alcohol and Drug Abuse Patient Records regulations: The Federal rules restrict any use of the information to criminally investigate or prosecute any alcohol or drug abuse patient.[facility] the event this information is protected by the Federal Confidentiality of Alcohol and Drug Abuse Patient Records regulations: The Federal rules restrict any use of the information to criminally investigate or prosecute any alcohol or drug abuse patient.[facility] the event this information is protected by the Federal Confidentiality of Alcohol and Drug Abuse Patient Records regulations: The Federal rules restrict any use of the information to criminally investigate or prosecute any alcohol or drug abuse patient.[facility] the event this information is protected by the Federal Confidentiality of Alcohol and Drug Abuse Patient Records regulations: The Federal rules restrict any use of the information to criminally investigate or prosecute any alcohol or drug abuse patient.[facility] the event this information is protected by the Federal Confidentiality of Alcohol and Drug Abuse Patient Records regulations: The Federal rules restrict any use of the information to criminally investigate or prosecute any alcohol or drug abuse patient.[facility] the event this information is protected by the Federal Confidentiality of Alcohol and Drug Abuse Patient Records regulations: The Federal rules restrict any use of the information to criminally investigate or prosecute any alcohol or drug abuse patient.[facility] the event this information is protected by the Federal Confidentiality of Alcohol and Drug Abuse Patient Records regulations: The Federal rules restrict any use of the information to criminally investigate or prosecute any alcohol or drug abuse patient.[facility] Reason for Visit (unrecogniz ed section and content) Reason Comments Appointment Reason Comments Radiology CT Specialty Diagnoses / Procedures Referred By Contac t Referred To Contact CT IMAGING Diagnoses Renal artery aneurysm (HCC) Procedures CTA ABD/PEL WO/W IVCON CT ANGIO ABD&PLVIS CNTRST MTRL W/WO CNTRST Paco Haddad MD [address] [place] [address] Ct Imaging Referral ID Status Reason Start Date Expiration Date V isits Requested Visits Authorized [id number] Closed Auto-Generate d Referral 09/23/2021 10/23/2022 1 1 Reason Comments Established Patient Reason Comments Radiology Mammogram Specialty Diagnoses / Procedures Referred By Contac t Referred To Contact [facility] Diagnoses Encounter for screening mammogram for breast cancer Procedures JAKE SCREENING SCREENING MAMMOGRAPHY BI 2-VIEW BREAST INC Sharon Gallagher, RUPERT.BAIT DIGGER [address] [place] [address] [facility] [address] [place] [address] Referral ID Status Reason Start Date Expiration Date V isits Requested Visits Authorized [id number] Closed Auto-Generate d Referral 11/20/2021 12/20/2022 1 1 Reason Comments Radio Gen RMP Reason Comments Radiology XR Reason Comments Cough Nasal Congestion Reason Comments Radio Gen RMP Radiology Service Pr ogress NotePATIENT NAME: Gilda SortoMRN: [id number] OF SERVICE: April 12, 2023TIME: 12:30 PMPATIENT [...] MINIMUM 3 VIEWS Kayla Mata MD [address] [place] [address] [place] [address] Referral ID Status Reason Start Date Expiration Date V isits Requested Visits Authorized [id number] Closed Auto-Generate d Referral 03/21/2023 04/19/2024 1 1 Care Teams (unrecognized sec tion and content) Moisture Meter Operator Relationship Specialty Start Date End Date Gonsalo Hubbard MD [address] [place] [address] PCP - General 08/31/00 Moisture Meter Operator Relationship Specialty Start Date End Date Gonsalo Hubabrd MD [address] [place] [address] PCP - General 08/31/00 Moisture Meter Operator Relationship Specialty Start Date End Date Gonsalo Hubbard MD [address] [place] [address] PCP - General 08/31/00 Moisture Meter Operator Relationship Specialty Start Date End Date Gonsalo Hubbard MD [address] [place] [address] PCP - General 08/31/00 Moisture Meter Operator Relationship Specialty Start Date End Date Gonsalo Hubbard MD [address] [place] [address] PCP - General 08/31/00 Moisture Meter Operator Relationship Specialty Start Date End Date Gonsalo Hubbard MD [address] [place] [address] PCP - General 08/31/00 Moisture Meter Operator Relationship Specialty Start Date End Date Gonsalo Hbubard MD [address] [place] [address] PCP - General 08/31/00 Moisture Meter Operator Relationship Specialty Start Date End Date Gonsalo Hubbard MD [address] [place] [address] PCP - [employer] 05/16/21 Gonsalo Hubbard MD [address] [place] [address] PCP - General Internal Medicine 12/07/22 Eliud Weiss DPM [address] [place] [address] Referring Physician Podiatry 04/20/23 Ifeanyi Leavitt MD [address] [place] [address] Consulting Physician Dermatology 04/26/23 [place] [address] [place] [address] Consulting Physician Ophthalmology 04/26/23 Dr Ramirez [facility] Surgery 11/25/21 Moisture Meter Operator Relationship Specialty Start Date End Date Gonsalo Hubbard MD [address] [place] [address] [place] [address] PCP - General 08/31/00 Team Status: Active Member Role Status Dates Gonsalo Hubbard MD Primary Care Provider Active Team Status: Inactive Member Role Status Dates Gonsalo Hubbard MD Primary Care Provider Active St art: February 21, 2024 End: February 21, 2024 Juan Lundberg APRN Emergency Provider Active Start: February 21, 2024 End: February 21, 2024 Goals (unrecognized section and content) Goals may be documented in a n alternate section FOR RECORDS PERTAINING TO PATIENTS WHO ARE [...] BE BASED ON THE PRIMARY CLINICAL RECORDS. [facility] [employer] [facility]. provides no warranty or guarantee of the accuracy or completeness of information in this document.
== END 2024-03-01 12:07 | disposition home or self-care (01) ==
PROVIDERS: PCP Radiology Diagnostic Radiology; Visit Provider Radiology Diagnostic Radiology
DX: I80.02 Phlebitis and thrombophlebitis of superficial vessels of left lower extremity (principal)
CPT/HCPCS: 93971; G0463

== ENCOUNTER 2024-03-21 13:01 | Outpatient (OUT) | payer MEDICARE, SELFPAY ==
--- NOTE | 2024-03-20 08:39 | VEINCLINIC_ITS ---
Vital Signs 03/21/24 13:48 BP 128/74 BP Location Left Brachial BP Position Sitting BP Cuff Size Adult BP Source Manual Cuff Respiration 16 Pulse 74 Pulse Source Monitor Pulse Oximetry (%) 99 Oxygen Delivery Method Room Air Comment The patient's blood pressure is elevated. Varicose Veins Patient in today for sclerotherapy Jb Garcia MD personally performed the services described in this documentation, as scribed by Veto Allred RN in my presence and it is both accurate and complete. IVeto RN, am scribing for, and in the presence of, Dr. Jb Li and in the presence of the patient. thigh: bilateral (symptoms left > right leg), knee: bilateral, calf: bilateral, ankle: bilateral and ebltre: bilateral aching, cramping and dull 5 20 years Worsened in recent months: Yes standing elevating extremities, compression stockings and exercise Reports fatigue, heaviness, limb pain, edema and leg edema History of lower extremity trauma: No Superficial thrombophlebitis: No Family history of varicose veins: yes (Patient's mother) Has patient had previous lower extremity venous surgery: Yes Patient has previously received the following treatment(s) for lower extremity varicose veins: Reports sclerotherapy and laser therapy Does patient have a history of : yes Does patient intend to have future pregnancies: no Has patient had lower extremity venous scan with relux testing: Yes Support hose used: Yes Problems walking or doing physical activity: Yes How does it affect you: decreased ability secondary to pain/edema Do you walk much: Yes Do you stand much: No Review of Systems ROS Narrative Jb Garcia MD personally performed the services described in this documentation, as scribed by Veto Allred RN in my presence and it is both accurate and complete. IVeto RN, am scribing for, and in the presence of, Dr. Jb Li and in the presence of the patient. Status of ROS 10 or more systems reviewed and unremark able except as noted in history and below Cardiovascular Reports: edema Integumentary/Breast Reports: skin pain, skin tenderness and changes in skin color Neurological Reports: weakness in extremities [facility] Medical History (Updated 02/08/24 @ 09:26 by Charisma Alexandre) Phlebitis and thrombophlebitis of superficial vessels of right lower extremity ?I80.01 - Phlebitis and thrombophlebitis of superficial vessels of right lower extremity (ICD-10) Phlebitis and thrombophlebitis of superficial vessels of left lower extremity ?I80.02 - Phlebitis and thrombophlebitis of superficial vessels of left lower extremity (ICD-10) Renal artery aneurysm ?I72.2 - Aneurysm of renal artery (ICD-10) delivery delivered ?O82 - Encounter for delivery without indication (ICD-10) Pain due to varicose veins of both lower extremities ?I83.813 - Varicose veins of bilateral lower extremities with pain (ICD-10) Squamous cell carcinoma Hyperparathyroidism ?E21.3 - Hyperparathyroidism, unspecified (ICD-10) 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 - Other specified disorders of arteries and arterioles (ICD-10) Hypertension ?I10 - Essential (primary) hypertension (ICD-10) Cataract ?H26.9 - Unspecified cataract (ICD-10) Breast cancer ?C50.919 - Malignant neoplasm of unspecified site of unspecified female breast (ICD-10) Arthritis ?M19.90 - Unspecified osteoarthritis, unspecified site (ICD-10) Anxiety ?F41.9 - Anxiety disorder, unspecified (ICD-10) Surgical History (Updated 03/21/24 @ 13:49 by Veto Allred) S/P sclerotherapy of varicose veins ?Z98.890 - Other specified postprocedural states (ICD-10) ?Z86.79 - Personal history of other diseases of the circulatory system (ICD- 10) S/P sclerotherapy of varicose veins ?Z98.890 - Other specified postprocedural states (ICD-10) ?Z86.79 - Personal history of other diseases of the circulatory system (ICD- 10) S/P sclerotherapy of varicose veins ?Z98.890 - Other specified postprocedural states (ICD-10) ?Z86.79 - Personal history of other diseases of the circulatory system (ICD- 10) Status post ablation of incompetent vein using laser ?Z98.890 - Other specified postprocedural states (ICD-10) History of arthroplasty of left knee ?Z96.652 - Presence of left artificial knee joint (ICD-10) History of tonsillectomy and adenoidectomy ?Z90.89 - Acquired absence of other organs (ICD-10) H/O: hysterectomy ?Z90.710 - Acquired absence of both cervix and uterus (ICD-10) History of surgical removal of squamous cell carcinoma of skin of [place] ?Z98.890 - Other specified postprocedural states (ICD-10) ?Z85.828 - Personal history of other malignant neoplasm of skin (ICD-10) H/O parathyroidectomy ?Z98.890 - Other specified postprocedural states (ICD-10) ?Z90.89 - Acquired absence of other organs (ICD-10) Hx of appendectomy ?Z90.49 - Acquired absence of other specified parts of digestive tract (ICD- 10) Family History (Updated 01/17/24 @ 11:24 by Veto Allred) Other Family history of hypertension Heart disease Pain due to varicose veins of both lower extremities Social History (Updated 01/17/24 @ 11:24 by Veto Allred) Within the past year, how often did you have a drink containing alcohol: 2-4 times a month Smoking status: Never smoker Non-prescribed substance use: denies use Meds Home Medications and Allergies Home Medications ?Medication ?Instructions ?Recorded ?Confirmed ?Type lorazepam 0.5 mg tablet (Ativan) 0.25 mg PO DAILY PRN anxiety 01/17/24 01/17/24 History multivitamin (Daily Multi-Vitamin 1 tab PO DAILY 01/17/24 01/17/24 History tablet) omeprazole 40 mg capsule,delayed 40 mg PO DAILY 01/17/24 01/17/24 History release triamterene 37.5 1 cap PO DAILY 01/17/24 01/17/24 History mg-hydrochlorothiazide 25 mg capsule zolpidem 5 mg tablet (Ambien) 01/17/24 History Allergies Allergy/AdvReac Type Severity Reaction Status Date / Time TRACY Inhibitors Allergy Severe Swelling Verified 01/17/24 11:28 of Lip/Tongue/Throat doxycycline Allergy Intermediate Rash Verified 01/17/24 11:28 nitrofurantoin Allergy Intermediate Rash Verified 01/17/24 11:28 Sulfa (Sulfonamide Allergy Rash Verified 01/17/24 11:28 Antibiotics) Exam Narrative Exam Narrative: IJb MD personally performed the services described in this documentation, as scribed by Veto Allred RN in my presence and it is both accurate and complete. I, Veto Allred RN, am scribing for, and in the presence of, Dr. Jb Li and in the presence of the patient. Constitutional Documenting provider has reviewed patient's vital signs: yes Common normals: oriented x3 Cardio Peripheral pulses: posterior tibial pulses present and dorsalis pedis pulses present Extremity Common normals: normal capillary refill General: calf tenderness and edema Right lower extremity: lower leg Right lower leg: inspection and palpation Left lower extremity: lower leg Left lower leg: inspection and palpation Neuro Common normals: oriented x3 Assessment and Plan Assessment and Plan (1) Pain due to varicose veins of both lower extremities: Plan additional sclerotherapy Jb Garcia MD personally performed the services described in this documentation, as scribed by Veto Allred RN in my presence and it is both accurate and complete. Veto Garcia RN, am scribing for, and in the presence of, Dr. Jb Li and in the presence of the patient. Procedures Procedure Instructions Procedures sclerotherapy: Risks and benefits of the procedure were discussed at length and informed written consent was obtained.? Time-out procedure was performed and the correct patient and procedure were confirmed.? Staff present during time-out: Veto Allred RN and Jb Li MD.? Patient prepped and procedure performed in usual sterile fashion. Injections performed by and Veto Allred RN Sclerosing Agent:?? 4cc 0.5% Polidocanol Site Injected: right leg Number of Injections: 21 Anesthesia: Supercooled air The patient tolerated the procedure well without complication.? Hemostasis was obtained and thigh-high compression stocking was applied by patient.? Instructed patient to wear stocking for at least 96 hours and sleep with it and only remove for showering.? Will wear stocking for 2 weeks.? The patient verbalizes understanding and states they will comply.? Patient was given post-procedure instructions. Patient was discharged in good condition.? Scheduled to undergo additional injection sclerotherapy on 03/28/2024. Jb Garcia MD personally performed the services described in this documentation, as scribed by Veto Allred RN in my presence and it is both accurate and complete. Veto Garcia RN, am scribing for, and in the presence of, Dr. Jb Li and in the presence of the patient.
--- NOTE | 2024-03-20 08:44 | W.VEIN ---
Discharge Plan Discharge Disposition: Home, Self-Care Outpatient Diagnostics: VC INJ Sclerosing SOLMULT Vein (Routine) Timeframe: 2 Weeks Facility: [facility] - Location: [facility] Ordered By: Jb Li Plan of Treatment: additional sclerotherapy Patient Instructions: Polidocanol (By injection) Print Language: Djiboutian Discharge Date/Time: 03/21/24 13:51
--- NOTE | 2024-03-21 13:04 | VEIN_ITS ---
[address] [address] Patient Name: JACQUELIN SORTO MRN: [id number] date: 1950 Sex: F Assigned Patient Location: VC Current Patient Location: Accession/Order Number: [id number] Exam Date: 03/21/2024 13:05 Report Date: 03/21/2024 14:02 At the request of: JABARI SAENZ Procedure: VC INJ Sclerosing SOLMULT Vein EXAMINATION: VC INJ Sclerosing SOLMULT Vein HISTORY: I83.813 - Varicose veins of bilateral lower extremities w... COMPARISON: No relevant comparison available. TECHNIQUE: The risks and benefits of the procedure were explained at length to the patient and informed written consent was obtained. was present and assisted. The procedure was performed under sterile technique. The patient's leg was wrapped with Coban and postprocedural verbal and written instructions provided. SCLEROSANT: 4 cc, 0.5% polidocanol VEIN(S) INJECTED: 21 veins in the right leg VISUALIZATION: Ultrasound was not used to visualize the sclerosant ANESTHESIA: Supercooled air COMPLICATIONS: None VEIN/VC INJ Sclerosing SOLMULT Vein IMPRESSION: Technically successful sclerotherapy as described Electronically authenticated by: JABARI SAENZ Date: 03/21/2024 14:02
[2024-03-21 13:48] VITALS: BP 128/74; PULSE 74; O2SAT 99
== END 2024-03-21 13:51 | disposition home or self-care (01) ==
LOC: VC 13:01
PROVIDERS: PCP Radiology Diagnostic Radiology; Visit Provider Radiology Diagnostic Radiology
DX: I83.813 Varicose veins of bilateral lower extremities with pain (principal)
CPT/HCPCS: 36471

== ENCOUNTER 2024-03-28 08:55 | Outpatient (OUT) | payer MEDICARE, SELFPAY ==
--- NOTE | 2024-03-27 13:53 | V.VEINS.HP ---
Vital Signs 03/28/24 09:10 BP 118/74 BP Location Right Brachial BP Position Sitting BP Cuff Size Adult BP Source Manual Cuff Respiration 16 Pulse 82 Pulse Source Monitor Pulse Oximetry (%) 98 Oxygen Delivery Method Room Air Varicose Veins Patient in today for sclerotherapy Jb Garcia MD personally performed the services described in this documentation, as scribed by Veto Allred RN in my presence and it is both accurate and complete. IVeto RN, am scribing for, and in the presence of, Dr. Jb Li and in the presence of the patient. thigh: bilateral (symptoms left > right leg), knee: bilateral, calf: bilateral, ankle: bilateral and beltre: bilateral aching, cramping and dull 5 20 years Worsened in recent months: Yes standing elevating extremities, compression stockings and exercise Reports fatigue, heaviness, limb pain, edema and leg edema History of lower extremity trauma: No Superficial thrombophlebitis: No Family history of varicose veins: yes (Patient's mother) Has patient had previous lower extremity venous surgery: Yes Patient has previously received the following treatment(s) for lower extremity varicose veins: Reports sclerotherapy and laser therapy Does patient have a history of : yes Does patient intend to have future pregnancies: no Has patient had lower extremity venous scan with relux testing: Yes Support hose used: Yes Problems walking or doing physical activity: Yes How does it affect you: decreased ability secondary to pain/edema Do you walk much: Yes Do you stand much: No Review of Systems ROS Narrative Jb Garcia MD personally performed the services described in this documentation, as scribed by Veto Allred RN in my presence and it is both accurate and complete. IVeto RN, am scribing for, and in the presence of, Dr. Jb Li and in the presence of the patient. Status of ROS 10 or more systems reviewed and unremarkable except as noted in history and below Cardiovascular Reports: edema Integumentary/Breast Reports: skin pain, skin tenderness and changes in skin color Neurological Reports: weakness in extremities [facility] Medical History (Updated 02/08/24 @ 09:26 by Charisma Alexandre) Phlebitis and thrombophlebitis of superficial vessels of right lower extremity ?I80.01 - Phlebitis and thrombophlebitis of superficial vessels of right lower extremity (ICD-10) Phlebitis and thrombophlebitis of superficial vessels of left lower extremity ?I80.02 - Phlebitis and thrombophlebitis of superficial vessels of left lower extremity (ICD-10) Renal artery aneurysm ?I72.2 - Aneurysm of renal artery (ICD-10) delivery delivered ?O82 - Encounter for delivery without indication (ICD-10) Pain due to varicose veins of both lower extremities ?I83.813 - Varicose veins of bilateral lower extremities with pain (ICD-10) Squamous cell carcinoma Hyperparathyroidism ?E21.3 - Hyperparathyroidism, unspecified (ICD-10) 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 - Other specified disorders of arteries and arterioles (ICD-10) Hypertension ?I10 - Essential (primary) hypertension (ICD-10) Cataract ?H26.9 - Unspecified cataract (ICD-10) Breast cancer ?C50.919 - Malignant neoplasm of unspecified site of unspecified female breast (ICD-10) Arthritis ?M19.90 - Unspecified osteoarthritis, unspecified site (ICD-10) Anxiety ?F41.9 - Anxiety disorder, unspecified (ICD-10) Surgical History (Updated 03/28/24 @ 10:54 by Veto Allred) S/P sclerotherapy of varicose veins ?Z98.890 - Other specified postprocedural states (ICD-10) ?Z86.79 - Personal history of other diseases of the circulatory system (ICD-10) S/P sclerotherapy of varicose veins ?Z98.890 - Other specified postprocedural states (ICD-10) ?Z86.79 - Personal history of other diseases of the circulatory system (ICD-10) S/P sclerotherapy of varicose veins ?Z98.890 - Other specified postprocedural states (ICD-10) ?Z86.79 - Personal history of other diseases of the circulatory system (ICD-10) S/P sclerotherapy of varicose veins ?Z98.890 - Other specified postprocedural states (ICD-10) ?Z86.79 - Personal history of other diseases of the circulatory system (ICD-10) Status post ablation of incompetent vein using laser ?Z98.890 - Other specified postprocedural states (ICD-10) History of arthroplasty of left knee ?Z96.652 - Presence of left artificial knee joint (ICD-10) History of tonsillectomy and adenoidectomy ?Z90.89 - Acquired absence of other organs (ICD-10) H/O: hysterectomy ?Z90.710 - Acquired absence of both cervix and uterus (ICD-10) History of surgical removal of squamous cell carcinoma of skin of [place] region ?Z98.890 - Other specified postprocedural states (ICD-10) ?Z85.828 - Personal history of other malignant neoplasm of skin (ICD-10) H/O parathyroidectomy ?Z98.890 - Other specified postprocedural states (ICD-10) ?Z90.89 - Acquired absence of other organs (ICD-10) Hx of appendectomy ?Z90.49 - Acquired absence of other specified parts of digestive tract (ICD-10) Family History (Updated 01/17/24 @ 11:24 by Veto Allred) Other Family history of hypertension Heart disease Pain due to varicose veins of both lower extremities Social History (Updated 01/17/24 @ 11:24 by Veto Allred) Within the past year, how often did you have a drink containing alcohol: 2-4 times a month Smoking status: Never smoker Non-prescribed substance use: denies use Meds Home Medications and Allergies Home Medications ?Medication ?Instructions ?Recorded ?Confirmed ?Type lorazepam 0.5 mg tablet (Ativan) 0.25 mg PO DAILY PRN anxiety 01/17/24 01/17/24 History multivitamin (Daily Multi-Vitamin 1 tab PO DAILY 01/17/24 01/17/24 History tablet) omeprazole 40 mg capsule,delayed 40 mg PO DAILY 01/17/24 01/17/24 History release triamterene 37.5 1 cap PO DAILY 01/17/24 01/17/24 History mg-hydrochlorothiazide 25 mg capsule zolpidem 5 mg tablet (Ambien) 01/17/24 History Allergies Allergy/AdvReac Type Severity Reaction Status Date / Time TRACY Inhibitors Allergy Severe Swelling Verified 01/17/24 11:28 of Lip/Tongue/Throat doxycycline Allergy Intermediate Rash Verified 01/17/24 11:28 nitrofurantoin Allergy Intermediate Rash Verified 01/17/24 11:28 Sulfa (Sulfonamide Allergy Rash Verified 01/17/24 11:28 Antibiotics) Exam Narrative Exam Narrative: Jb Garcia MD personally performed the services described in this documentation, as scribed by Veto Allred RN in my presence and it is both accurate and complete. I, Veto Allred RN, am scribing for, and in the presence of, Dr. Jb Li and in the presence of the patient. Constitutional Documenting provider has reviewed patient's vital signs: yes Common normals: oriented x3 Cardio Peripheral pulses: posterior tibial pulses present and dorsalis pedis pulses present Extremity Common normals: normal capillary refill General: calf tenderness and edema Right lower extremity: lower leg Right lower leg: inspection and palpation Left lower extremity: lower leg Left lower leg: inspection and palpation Neuro Common normals: oriented x3 Assessment and Plan Assessment and Plan (1) Pain due to varicose veins of both lower extremities: Plan additional sclerotherapy IJb MD personally performed the services described in this documentation, as scribed by Veto Allred RN in my presence and it is both accurate and complete. I, Veto Allred RN, am scribing for, and in the presence of, Dr. Jb Li and in the presence of the patient. Procedures Procedure Instructions Procedures sclerotherapy: Risks and benefits of the procedure were discussed at length and informed written consent was obtained.? Time-out procedure was performed and the correct patient and procedure were confirmed.? Staff present during time-out: Veto Allred RN and Jb Li MD.? Patient prepped and procedure performed in usual sterile fashion. Injections performed by and Veto Allred RN Sclerosing Agent:?? 4cc 0.5% Polidocanol Site Injected: 22 Number of Injections: left leg Anesthesia: Supercooled air The patient tolerated the procedure well without complication.? Hemostasis was obtained and thigh-high compression stocking was applied by patient.? Instructed patient to wear stocking for at least 96 hours and sleep with it and only remove for showering.? Will wear stocking for 2 weeks.? The patient verbalizes understanding and states they will comply.? Patient was given post-procedure instructions. Patient was discharged in good condition.? Scheduled to undergo additional injection sclerotherapy on I, Jb Li MD personally performed the services described in this documentation, as scribed by Veto Allred RN in my presence and it is both accurate and complete. I, Veto Allred RN, am scribing for, and in the presence of, Dr. Jb Li and in the presence of the patient.
--- NOTE | 2024-03-27 13:54 | P.DS_ITS ---
Discharge Plan Discharge Disposition: Home, Self-Care Follow Up Appointments: 04/04/2024 Plan of Treatment: additional sclerotherapy Patient Instructions: Polidocanol (By injection) (Taty Jolley) Print Language: Bulgarian Discharge Date/Time: 03/28/24 12:41
--- NOTE | 2024-03-28 08:56 | VEIN_ITS ---
[address] [address] Patient Name: JACQUELIN SORTO MRN: [id number] date: 1950 Sex: F Assigned Patient Location: Current Patient Location: Accession/Order Number: [id number] Exam Date: 03/28/2024 09:00 Report Date: 03/28/2024 11:10 At the request of: JABARI SAENZ Procedure: VC INJ Sclerosing SOLMULT Vein EXAMINATION: VC INJ Sclerosing SOLMULT Vein HISTORY: I83.813 - Varicose veins of bilateral lower extremities w... COMPARISON: No relevant comparison available. TECHNIQUE: The risks and benefits of the procedure were explained at length to the patient and informed written consent was obtained. Veto Allred was present and assisted. The procedure was performed under sterile technique. The patient's leg was wrapped with Coban and postprocedural verbal and written instructions provided. SCLEROSANT: 4 cc, 0.5% polidocanol VEIN(S) INJECTED: 28 veins in the left leg VISUALIZATION: Ultrasound was not used to visualize the sclerosant ANESTHESIA: Supercooled air COMPLICATIONS: None VEIN/VC INJ Sclerosing SOLMULT Vein IMPRESSION: Technically successful sclerotherapy as described Electronically authenticated by: JABARI SAENZ Date: 03/28/2024 11:10
[2024-03-28 09:10] VITALS: BP 118/74; PULSE 82; O2SAT 98
--- OUTSIDE RECORDS SUMMARY | 2024-03-28 09:17 | XMS_ITS | CCD ---
Author Organization [facility] Care Team Providers Care Php Developer Name Role Phone Zaki JACK, Gonsalo Ch Primary Care Provider [phone] JALEN DELAROSA Attending Unavailable Gonsalo Hubbard Primary Care Unavailable JALEN DELAROSA Attending Unavailable Gonsalo Hubbard Primary Care Unavailable JALEN DELAROSA Attending Unavailable Gonsalo Hubbard Primary Care Unavailable JALEN DELAROSA Attending Unavailable PCP, NONE Primary Care Unavailable JALEN DELAROSA Attending Unavailable Gonsalo Hubbard Primary Care Unavailable Gonsalo Hubbard MD Primary Care Provider Gonsalo Hubbard MD Unavailable Gonsalo Hubbard MD Primary Care Provider [phone] Abhishek DPM, Eliud R Unavailable Dagmar JACK, Ifeanyi Unavailable Maya JACK, Sandro Gamez Unavailable Gonsalo Hubbard MD Primary Care Provider MD Gonsalo Hubbard Primary Care Provider [phone] RUPERT Lundberg Emergency Provider Gonsalo Hubbard Primary Care Unavailable Juan Lundberg Attending Unavailable Juan Lundberg Admitting Unavailable Gonsalo Hubbard Admitting Unavailable Gonsalo Hubbard Referring Unavailable Gonsalo Hubbard Attending Unavailable Gonsalo Hubbard Primary Care Unavailable GONSALO HUBBARD Referring Unavailable SAMIA SANZ Attending Unavailable GONSALO HUBBARD Attending Unavailable GONSALO HUBBARD Attending Unavailable GRAZYNA BERMUDEZ Attending Unavailable GRAZYNA BERMUDEZ Referring Unavailable KEMAR BLANDON Attending Unavailable WORKKEMAR MEZA M Referring Unavailable WORKKEMAR MEZA Attending Unavailable GONSALO HUBBARD Referring Unavailable KEMAR BLANDON Referring Unavailable GONSALO HUBBARD Primary Care Unavailable DELFIN SEARS Attending Unavailable GONSALO HUBBARD Primary Care Unavailable KAYLA MATA Referring Unavailable KAYLA MATA Attending Unavailable KAYLA MATA Referring Unavailable GONSALO HUBBARD Primary Care Unavailable Allergies Allergy Classification Reported Allergen(s) Allergy Type Date of Onset Reaction(s) Facility (20 sources) Doxycycline; Translations: [DOXYCYCLINE] Drug Allergy 8 Rash [facility] Work Phone: (20 sources) Sulfonamides (Antibiotic); Translations: [SULFA (SULFONAMIDE ANTIBIOTICS)] Drug Allergy 4 Anaphylaxis, Unknown [facility] (6 sources) Angiotensin-conver ting enzyme inhibitor agent Drug Allergy 3 Angioedema [facility] (6 sources) Nitrofurantoin Drug Allergy 3 GI intolerance [facility] (1 source) Doxycycline Drug Allergy 4 [facility] (1 source) Sulfonamides (Antibiotic) Drug allergy (disorder) 4 [facility] Medications Current Medications Medication Drug Class(es) Dates Sig (Normalized) Sig (Original) acetaminophen 325 mg / oxyCODONE hydrochloride 5 mg oral tablet (3 sources) Opioid Agonist Start: 02-28-2024 End: 03-06-2024 take 1 tablet by mouth every six hours as needed for pain oxyCODONE-acetamin ophen (PERCOCET) 5-325 mg tablet TAKE 1 TABLET BY MOUTH EVERY 6 HOURS NEEDED FOR MODERATE OR SEVERE PAIN FOR UP TO 7 DAYS 02/28/2024 Active aluminum hydroxide 80 mg / magnesium trisilicate 14.2 mg chewable tablet (2 sources) Alum Hydroxide-M ag Trisilicate (Gaviscon) 80-14.2 MG chewable tablet Chew 1 tablet if needed. 0 Active ascorbic acid 60 mg / beta carotene 5000 unt / copper sulfate 40 mg / dl-alpha tocopheryl acetate 30 unt / sodium selenite 0.04 mg / zinc oxide 40 mg oral tablet (6 sources) Vitamin C take 1 tablet by mouth once daily Multiple Vitamin (Multivitamin Adult) tablet Take 1 tablet by mouth 1 (one) time each day. Active Ascorbic Acid / Beta Carotene / cuprous oxide / Lutein / sodium selenate / Vitamin E / Zinc Oxide (12 sources) Vitamin C Start: 03-25-2004 OCUVITE TABLET [...] Discontinued (Other) citalopram 10 mg oral tablet (19 sources) Serotonin Reuptake Inhibitor Start: 01-01-2018 End: 03-19-2024 take 1 tablet by mouth once daily citalopram (CeleXA) 10 MG tablet Indications: Mild major depression (HCC) (CMS/HCC) Take 1 tablet (10 mg) by mouth 1 (one) time each day at the same time 90 tablet 3 08/04/2023 Active Comment on above: Take 10 mg by mouth once daily. eye vitamin supplement (Ocuvite Eye Health Formula) capsule (6 sources) Start: 04-14-2012 take 1 capsule by mouth in the morning eye vitamin supplement (Ocuvite Eye Health Formula) capsule Take 1 capsule by mouth in the morning. 04/14/2012 Active Start: 04-14-2012 take 1 capsule by mo [facility] in the morning eye vitamin supplement (Ocuvite [...] propionate 0.05 mg/actuat metered dose nasal spray (7 sources) Corticosteroid Start: 09-21-2023 take 2 spray(s) nasal route once daily as needed fluticasone (FLONASE) 50 mcg/actuation nasal spray USE 2 SPRAYS IN EACH NOSTRIL ONCE DAILY NEEDED 09/21/2023 Active Start: 09-21-2023 take 2 spray(s) nasa l route once daily as needed fluticasone (Flonase) 50 MCG/ACT nasal spray Indications: Seasonal allergic rhinitis, unspecified trigger USE 2 SPRAYS IN EACH NOSTRIL ONCE DAILY NEEDED 48 g 3 09/21/2023 Active Start: 02-28-2023 take 2 spray(s) nasa l route once daily as needed fluticasone (Flonase) 50 MCG/ACT nasal spray Indications: Seasonal allergic rhinitis, unspecified trigger USE 2 SPRAYS IN EACH NOSTRIL ONCE DAILY NEEDED 48 g 3 02/28/2023 Active hydroCHLOROthiazide 25 mg / triamterene 37.5 mg oral capsule (19 sources) Potassium-sparing Diuretic, Thiazide Diuretic Start: 03-25-2023 take 1 capsule by mouth in the morning triamterene-hydroCHLOROthiazide (Dyazide) 37.5-25 MG capsule Indications: Essential hypertension (CMS/HCC) Take 1 capsule by mouth in the morning. 90 capsule 3 03/25/2023 Active Start: 09-12-2014 take 1 capsule by mouth once daily in the morning triamterene-hydroCHLOROthiazide (Dyazide ) 37.5-25 MG capsule Indications: Essential hypertension (CMS/HCC) TAKE 1 CAPSULE BY MOUTH EVERY MORNING 90 capsule 3 03/09/2024 Active Comment on above: Take 1 capsule by mo [facility] once daily. hydrOXYzine hydrochloride 25 mg oral tablet (1 source) Antihistamine Start: 023 take 1 tablet by mouth every eight hours as needed hydrOXYzine HCl (ATARAX) 25 mg tablet Take 25 mg by mouth three times a day as needed. 07/01/2022 Active levocetirizine dihydrochloride 5 mg oral tablet (6 sources) Histamine-1 Receptor Antagonist take 1 tablet by mouth once daily levocetirizine (Xyzal) 5 MG tablet Take 5 mg by mouth 1 (one) time each day at the same time. Active LORazepam 0.5 mg oral tablet (7 sources) Benzodiazepine Start: 024 take 1 tablet by mouth every eight hours for anxiety LORazepam (Ativan) 0.5 MG tablet Indications: SIOBHAN (generalized anxiety disorder) (CMS/HCC) Take 1 tablet (0.5 mg) by mouth every 8 (eight) hours if needed for anxiety 30 tablet 2 11/01/2023 Active Start: 04-26-2023 take 1 tablet by twyla every eight hours for anxiety LORazepam (Ativan) 0.5 MG tablet Indications: SIOBHAN (generalized anxiety disorder) (CMS/HCC) Take 1 tablet (0.5 mg) by mouth every 8 (eight) hours if needed for anxiety 30 tablet 0 04/26/2023 Active lysine 500 mg oral tablet (13 sources) Start: 03-25-2004 L-LYSINE 500MG TABLET takes daily 0 03/25/2004 Active Comment on above: takes daily methylPREDNISolone 4 mg oral tablet (1 source) Corticosteroid Start: 07-01-2022 methylPREDNISo lone (MEDROL) 4 mg Follow schedule on package instructions 07/01/2022 Active MISC NATURAL PRODUCTS PO (6 sources) MISC NATURAL PRO DUCTS PO Take 1 each by mouth if needed. CBD Gummies Active MISC NATURAL PRO DUCTS PO Take 1 each by mouth if needed. CBD Gummies 0 Active omeprazole 20 mg delayed release oral capsule (7 sources) Proton Pump Inhibitor Start: 03-25-2023 take 1 capsule by mouth before mealtime omeprazole (PriLOSEC) [address] capsule Indications: Gastroesophageal reflux disease without esophagitis Take 1 capsule (20 mg) by mouth in the morning. Take before meals. 90 capsule 3 03/25/2023 Active OTC NUTRITIONAL SUPPLEMENT (12 sources) take 1 tablet by mouth once daily OTC NUTRITIONAL SUPPLEMENT Take 1 tablet by mouth once daily. Allergy medication Active take 1 tablet by mouth once guillermo y OTC NUTRITIONAL SUPPLEMENT Take 1 tablet by mouth once daily. Allergy medication 0 Active Comment on above: Take 1 tablet by twyla once daily. Allergy medication potassium chloride 20 meq extended release oral tablet (6 sources) Start: 11-21-2021 take 1 tablet by mouth twice daily Potassium Chloride (K-Tab) 20 mEq tablet extended release Active 20 MEQ PO Twice daily November 21, 2021 12:00am End: 03-19-2024 take 1 tablet by mouth twice daily potassium chloride (K-TAB) 10 mEq tablet Take 10 mEq by mouth twice daily. 03/19/2024 Discontinued Comment on above: Take 10 mEq by mouth twice daily. Probiotic Product (ALIGN PO) (4 sources) take 1 capsule by mouth once daily Probiotic Product (ALIGN PO) Take 1 capsule by mouth Daily Active Vit C-Vit Y-Lljepa-Nnz-Om-3 (Ocuvite) 203-54-9-150 wd-iyxe-bc-mg Capsule (1 source) Start: 01-01-2018 take 1 capsule by mouth once daily Vit C-Vit H-Vkqybl-Cxj-Om-3 (Ocuvite) 957-60-5-150 ef-aldv-zh-mg Capsule Active 1 CAP PO Daily January 01, 2018 12:00am zolpidem tartrate 5 mg oral tablet (18 sources) gamma-Aminobutyric Acid-ergic Agonist Start: 09-25-2014 End: 11-01-2023 take 1 tablet by mouth once daily at bedtime zolpidem (AMBIEN) 5 mg tablet Take 1 tablet by mouth daily at bedtime. 09/25/2014 Active Comment on above: Take 1 tablet by twyla th daily at bedtime. Completed/Discontinued Medications Medication Drug Class(es) Dates Sig (Normalized) Sig (Original) [id number] actuat albuterol 0.09 mg/actuat metered dose inhaler (1 source) beta2-Adrenergic Agonist Start: 01-01-2018 End: 01-01-2018 take 1 puff(s) by inhalation every four to six hours Albuterol Sulfate (Ventolin Hfa) 90 mcg/actuation Hfa Aerosol Inhaler Discontinued 2 PUFF INHALATION EVERY 4-6 HOURS January 01, 2018 12:00am January 01, 2018 11:00am ALPRAZolam 0.25 mg oral tablet (12 sources) Benzodiazepine Start: 09-03-2014 End: 03-19-2024 ALPRAZolam (XANAX) 0.25 mg tablet Take 1 tablet by mouth as needed. 09/03/2014 03/19/2024 Discontinued Comment on above: Take 1 tablet by twyla th as needed. amoxicillin 500 mg oral capsule (9 sources) Penicillin-class Antibacterial Start: 02-26-2021 End: 03-19-2024 amoxicillin (POLYMOX, AMOXIL) 500 mg capsule Take 4 capsules by mouth 1 hour before dental procedure 20 capsule 02/26/2021 03/19/2024 Discontinued Comment on above: Take 4 capsules by m out 1 hour before dental procedure aspirin 325 mg delayed release oral tablet [...] daily. docusate sodium 100 mg oral capsule (12 sources) Start: 12-06-2019 End: 03-19-2024 take 1 capsule by mouth every twelve hours as needed docusate sodium (COLACE) 100 mg capsule Take 1 capsule by mouth twice daily as needed for Constipation. 60 capsule 12/06/2019 03/19/2024 Discontinued Comment on above: Take 1 capsule by [facility] twice daily as needed for Constipation. Lidocaine (2 sources) Antiarrhythmic, Amide Local Anesthetic Start: 03-19-2024 End: 03-19-2024 lidocaine 10 mg/mL (1 %) 15 mg injection (XYLOCAINE) Start: 03-19-2024 End: 03-19-2024 15 mg (1.5 mL), OTHER, ONCE, 1 dose, On Tue03/19/24 at 1500 triamcinolone acetonide 10 mg/ml injectable suspension (2 sources) Corticosteroid Start: 03-19-2024 End: 03-19-2024 triamcinolone acetonide 20 mg injection (KeNALog 10) Start: 03-19-2024 End: 03-19-2024 20 mg, INTRALESIONAL, ONCE, 1 dose, On Tue03/19/24 at 1500 Problems Active Problems Problem Classification Problem Date Documented Date Episodic/Chronic Acquired foot deformities (6 sources) Hammer toe; Translations: [Other hammer toe(s) (acquired), right foot] Onset: 11-29-2022 11-29-2022 Chronic Anxiety disorders (7 sources) Generalized anxiety disorder; Translations: [Generalized anxiety disorder] Onset: 11-29-2022 11-29-2022 Chronic Aortic; peripheral; and visceral artery aneurysms (20 sources) Aneurysm of renal artery; Translations: [Aneurysm of renal artery] Onset: 09-14-2012 05-11-2021 Chronic Cancer of breast (20 sources) Malignant neoplasm of female breast; Translations: [Malignant neoplasm of unspecified site of unspecified female breast] Onset: 11-09-2007 11-12-2017 Chronic Chronic kidney disease (7 sources) Chronic kidney disease, unspecified; Translations: [Chronic kidney disease stage 3A ] Onset: 12-15-2021 11-29-2022 Chronic Diverticulosis and diverticulitis (6 sources) Diverticular disease; Translations: [Diverticulosis of intestine, part unspecified, without perforation or abscess without bleeding] Onset: 11-29-2022 11-29-2022 Chronic Esophageal disorders (6 sources) Gastroesophageal reflux disease; Translations: [Gastro-esophageal reflux disease without esophagitis] Onset: 11-29-2022 11-29-2022 Chronic Essential hypertension (18 sources) Hypertensive disorder; Translations: [Essential (primary) hypertension] Onset: 09-14-2012 11-29-2022 Chronic Fluid and electrolyte disorders (1 source) Hypokalemia; Translations: [Hypokalemia] 11-21-2021 Episodic Hypertension with complications and secondary hypertension (1 source) Hypertensive chronic kidney disease with stage 1 through stage 4 chronic kidney disease, or unspecified chronic kidney disease; Translations: [Hypertensive chronic kidney disease w stg 1-4/unsp chr kdny] Onset: 12-15-2021 Chronic Mood disorders (6 sources) Mild major depression; Translations: [Major depressive disorder, single episode, mild] Onset: 11-29-2022 11-29-2022 Chronic Nutritional deficiencies (6 sources) Vitamin D deficiency; Translations: [Vitamin D [...] left artificial knee joint] 04-01-2020 Chronic Other connective tissue disease (2 sources) Pain of right lower leg; Translations: [Pain in right lower leg] 02-28-2024 Episodic Other connective tissue disease (2 sources) Pain in right lower limb; Translations: [Pain in right leg] 03-14-2024 Episodic Other connective tissue disease (1 source) Pain of bilateral hands; Translations: [Pain in right hand] 03-19-2024 Episodic Other connective tissue disease (1 source) Pain in right hand; Translations: [Pain in both hands] Onset: 03-19-2024 Episodic Other connective tissue disease (1 source) Pain in left hand; Translations: [Pain in both hands] Onset: 03-19-2024 Episodic Other ear and sense organ disorders (18 sources) Sensorineural hearing loss; Translations: [Unspecified sensorineural hearing loss] Onset: 11-26-2004 11-26-2004 Chronic Other endocrine disorders (1 source) Primary hyperparathyroidism; Translations: [Primary hyperparathyroidism] Onset: 12-15-2021 Chronic Other endocrine disorders (6 sources) Primary hyperparathyroidism; Translations: [Primary hyperparathyroidism] Onset: 09-10-2015 04-26-2023 Chronic Other injuries and conditions due to external causes (1 source) Contusion; Translations: [Other injury of unspecified body region, initial encounter] 02-21-2024 Episodic Other lower respiratory disease (2 sources) Cough; Translations: [Cough, unspecified type] 06-30-2023 Episodic Other non-traumatic joint disorders (1 source) Pain in right knee; Translations: [Pain in right knee] Onset: 02-21-2024 Episodic Other nutritional; endocrine; and metabolic disorders (1 source) Obesity, unspecified; Translations: [Obesity, unspecified] Onset: 01-12-2022 Chronic Other nutritional; endocrine; and metabolic disorders (1 source) Body mass index (BMI) 33.0-33.9, adult; Translations: [Body mass index [BMI] 33.0-33.9, adult] Onset: 01-12-2022 Chronic Other nutritional; endocrine; and metabolic disorders (10 sources) Morbid obesity; Translations: [Morbid (severe) obesity due to excess calories] Onset: 11-29-2022 06-30-2023 Chronic Other upper respiratory disease (6 sources) Seasonal allergic rhinitis; Translations: [Other seasonal allergic rhinitis] Onset: 11-29-2022 11-29-2022 Chronic Other upper respiratory infections (2 sources) Viral upper respiratory tract infection; Translations: [Acute upper respiratory infection, unspecified] 06-30-2023 Episodic Residual codes; unclassified (1 source) Pain; Translations: [Pain, unspecified] 04-12-2023 Episodic Superficial injury; contusion (8 sources) Right lower leg contusion; Translations: [Contusion of right lower leg, initial encounter] Onset: 02-21-2024 02-28-2024 Episodic Unclassified (12 sources) DISPOSITION AND FOLLOW-UP Onset: 09-14-2012 05-11-2021 [...] Date Documented Da te Episodic/Chronic Allergic reactions (9 sources) Allergy status to sulfonamides status; Translations: [Allergy status to other antibiotic agents status] Onset: 12-15-2021 11-29-2022 Episodic Cancer of breast (20 sources) History of malignant neoplasm of breast; Translations: [Personal history of malignant neoplasm of breast] Onset: 12-02-2017 12-02-2017 Episodic Joint disorders and dislocations; trauma-related (20 sources) Acute tear of medial meniscus of left knee; Translations: [Other tear of medial meniscus, current injury, left knee, initial encounter] Onset: 10-13-2017 Resolved: 04-26-2023 10-27-2017 Episodic Nonmalignant breast conditions (12 sources) Breasts asymmetrical; Translations: [Disproportion of reconstructed breast] Onset: 12-02-2017 12-02-2017 Episodic Other aftercare (1 source) Other chcf (current) drug therapy; Translations: [Other chcf (current) drug therapy] Onset: 01-12-2022 Episodic Other [...] Episodic Other diseases of veins and lymphatics (6 sources) Peripheral venous insufficiency; Translations: [Venous insufficiency (chronic) (peripheral)] Onset: 11-29-2022 11-29-2022 Episodic Other nervous system disorders (12 sources) Abnormal gait; Translations: [Unspecified abnormalities of gait and mobility] Onset: 12-12-2019 12-12-2019 Episodic Other non-epithelial cancer of skin (1 source) Personal history of other malignant neoplasm of skin; Translations: [Personal history of other malignant neoplasm of skin] Onset: 12-15-2021 Episodic Other non-traumatic joint disorders (9 sources) Pain of right shoulder joint; Translations: [...] Onset: 07-21-2006 11-24-2020 Episodic Other skin disorders (12 sources) Disorder of skin; Translations: [Hypertrophic disorder of the skin, unspecified] Onset: 03-25-2004 03-25-2004 Episodic Other skin disorders (12 sources) Mass of knee; Translations: [Localized swelling, mass and lump, left lower limb] Onset: 01-05-2018 01-06-2018 Episodic Otitis media and related conditions (12 sources) Dysfunction of eustachian tube; Translations: [Other specified disorders of Eustachian tube, unspecified ear] Onset: 11-26-2004 11-26-2004 Episodic Residual codes; unclassified (14 sources) History of right mastectomy; Translations: [Acquired [...] out because of contraindication] Onset: 12-15-2021 Episodic Residual codes; unclassified (8 sources) Insomnia; Translations: [Insomnia, unspecified] Onset: 11-29-2022 06-30-2023 Episodic Residual codes; unclassified (1 source) Pain, unspecified; Translations: [Pain] Onset: 04-12-2023 Episodic Sprains and strains (2 sources) Strain [...] Test Name Value Interpretation Reference Range Facility OV 03-19-2024 [facility] Office Visit (PLASMN ) GILDA SORTO ([id number]) 1950 F Date Time Provider Department 03/19/24 10:40 AM DELFIN SEARS [facility] During your visit today, we recorded the following information about you: Temperature Pulse Blood pressure Weight 98.2 degrees 89/minute 130/67 88.5 kg Height 1.6 m Delfin Sears PA-C 03/19/2024 2:52 PM Signed PLASTIC SURGERY DEPARTMENT [facility] Hand Surgery Note [x] New referred by []self []physician.......... [] Follow-up CC: ..bilateral wrist/hand pain............ ? HPI: Gilda is a 73 year old female who presents today for bilateral wrist and hand pain. Patient states that her left hand is hurting significantly more than her right but would like injections in each one. She was last seen by Dr. Mata on 04/12/24 where she had bilateral CMCJ injections to her thumbs. The pain just started coming back this past month. Job:.retired......... Recreational activities with hands: .beading....... Dominant [...] PREVIOUS STEROID INJECTION: NO [] YES [x] .....100.......% []R []L []R=L []R>L []R Symptoms improved: Tingling [] Numbness [] Pain [x] ANY TINGLING OR NUMBNESS IN THE FEET: NO [] YES [] .............. No results found for: HBA1C Last 10 Encounter BP Readings: Date: BP: 04/16/2022 117/60 11/25/2021 139/89 11/24/2020 130/71 12/05/2019 111/63 11/26/2019 129/61 11/22/2019 123/64 11/22/2019 116/51 11/01/2019 134/57 11/14/2018 134/62 11/01/2018 136/77 Latest Ref Rng AND Units 09/15/2012 11/26/2019 12/06/2019 CBC WBC 3.70 - 11.00 k/uL 8.86 5.18 9.31 RBC 3.90 - 5.20 m/uL 2.86 4.52 3.10 Hemoglobin 11.5 - 15.5 g/dL 8.5 14.0 9.5 Hematocrit 36.0 - 46.0 % 26.9 44.6 30.3 MCV 80.0 - 100.0 fL 94.1 98.7 97.7 MCH 26.0 - 34.0 pG 29.7 31.0 30.6 MCHC 30.5 - 36.0 g/dL 31.6 31.4 31.4 RDW-CV 11.5 - 15.0 % 13.4 12.8 12.5 Platelet Count 150 - 400 k/uL 164 259 188 MPV 9.0 - 12.7 fL 9.5 10.2 10.2 Baso% % 0.8 Abs Neut (ANC) 1.45 - 7.50 k/uL 3.16 Abs Lymph 1.00 - 4.00 k/uL 1.29 Abs [place] <0.87 k/uL 0.41 Abs Eosin <0.46 k/uL 0.26 Abs Baso <0.11 k/uL 0.04 Diff Type Auto Diff Latest Ref Rng AND Units 11/24/2020 11/24/2020 11/25/2021 CMP Sodium 136 - 144 mmol/L 138 Potassium 3.7 - 5.1 mmol/L 4.5 Chloride 97 - 105 mmol/L 100 CO2 22 - 30 mmol/L 28 Glucose 74 - 99 mg/dL 111 BUN 7 - 21 mg/dL 19 Creatinine 0.58 - 0.96 mg/dL 1.34 Creatinine (POCT) 0.7 - 1.4 mg/dL 1.30 1.20 EGFR-All Other Races . 39 EGFR- 47 Calcium 8.5 - 10.2 mg/dL 9.2 YES NO Smoking, vaping, nicotine, cannabis [] [...] biologic meds infusion, etc) [] [x] What........... Reason:.... (more content not included)... Normal [facility] CT LOWER EXTREMITY RIGHT WO IV CONTRASTon 03-16-2024 CT LOWER EXTREMITY RIGHT WO IV CONTRAST EXAMINATION: CT LOWER EXTREMITY RIGHT WO IV CONTRAST HISTORY: tibia/fibula contusion, traumatic hematoma, pain TECHNIQUE: Multiple axial images were obtained of the right lower extremity without contrast from the level of the knee through ankle. Multiplanar reformats were obtained. All CT scans at this facility use dose modulation, iterative reconstruction, and/or weight based dosing when appropriate to reduce radiation dose to as low as reasonably achievable. COMPARISON: Radiographs February 28, 2024 FINDINGS: No evidence of recent fracture. Myotendinous structures appear intact. Nonspecific fluid collection in the anterior subcutaneous soft tissues in the infrapatellar region through the level of the tibial tuberosity measures approximately 1.5 cm in AP dimension by 3.5 cm in transverse dimension by at least 6.3 cm in craniocaudal dimension and most likely represents a hematoma. Mild subcutaneous soft tissue edema of the distal lower extremity/ankle. No soft tissue mass. IMPRESSION: Anterior subcutaneous soft tissue fluid collection most likely representing a hematoma. ELECTRONICALLY SIGNED BY: Gonsalo Alvarez DO Normal Not Available XR TIBIA FIBULA 2 VIEWS [facility] 02-28-2024 XR TIBIA FIBULA 2 VIEWS RIGHT XR - RT TIB FIB 2 VIEWS Reason for exam: Right anterior mid to upper tib fib pain, brusiing, swelling Views: 4 Findings: The alignment is normal. No fracture, dislocation or other acute pathology is demonstrated. No soft tissue abnormalities are seen. Impression: Negative exam. Dictated on: 02/28/2024 2:39 PM This report has been electronically signed and approved by the interpreting Radiologist. Electronically Signed Jonny Villagran M.D. 2024-02-28 14:40:53 Normal Not Available XR knee RT 4V*on 02-21-2024 XR knee RT 4V* [facility] [place] [address] [place] [address] XRay Report Signed Patient: Gilda Sorto MR#: [id number] 0 : 1950 Acct:[id number] Age/Sex: 73 / F ADM Date: 02/21/24 Loc: ER Room: Type: [facility] ER Attending Dr: Copies to: Juan Lundberg APRN Ordering Provider: Juan Lundberg APRN Date of Service: 02/21/24 XR/XR wrist LT min 3V*: Fall ([id number]) XR/XR knee RT 4V*: Fall LEFT WRIST [...] NOTED. Impression dictated by: Alexis Rosa Jr., D.O.02/21/2024 1:44 PM Dictation Location: [place] [address] Transcribed By: [facility] 02/21/24 1344 Dictated By: Alexis Rosa Jr, DO 02/21/24 1342 Signed By: 02/21/24 1344 Normal [facility] [facility] ABDOMEN PELVIS W IV [...] n 04-19-2023 MM screening mammo BI w/CAD [facility] [place] [address] [place] [address] Mammography Report Signed Patient: Gilda Sorto MR#: [id number] 0 : 1950 Acct:[id number] Age/Sex: 72 / F ADM Date: 04/19/23 Loc: [place] Room: Type: [facility] Attending Dr: Gonsalo Hubbard MD Copies to: [...] Azam Cason M.D.04/19/2023 1:37 PM Dictation Location: [facility] Transcribed By: [facility] 04/19/231336 Dictated By: Azam Cason II, MD 04/19/231331 Signed By: 04/19/23 133 Normal [facility] CNOVon 04-12-2023 CNOV Office Visit (PLASST ) GILDA SORTO ([id number]) 1950 F Date Time Provider Department 04/12/23 1:00 PM KAYLA MATA During your visit today, we recorded the following information about you: Kayla Mata MD 04/12/2023 4:51 PM Signed PLASTIC SURGERY DEPARTMENT [facility] Hand Surgery Note [x] New [...] [x] Anticoagula (more content not included)... Normal [facility] No Panel Informationon 04-12 Radiology Study observation (narrative) [facility] XR HAND 3V PA/LAT/OBL BILon [...] 1. Osteoarthritis of both hands and wrists. Primary Care Pediatrician: [place] Transcribe Date/Time: Apr 12 2023 1:52P Dictated by : EDITH LAZO MD This examination was interpreted and the report reviewed and electronically signed by: EDITH LAZO MD on Apr 12 2023 1:54PM EST [id number] Normal [facility] XR Hand - bilateral PA and L ateral and Obliqueon 04-12-2023 IMPRESSION: 1. Osteoarthritis of both hands and wrists. Primary Care Pediatrician: [place] Transcribe Date/Time: Apr 12 2023 1:52P [...] erosions are demonstrated. DIVISION OF RADIOLOGY Provider, [facility] - 04/12/2023 * * *Final [...] 1. Osteoarthritis of both hands and wrists. Primary Care Pediatrician: [place] Transcribe Date/Time: Apr 12 2023 1:52P Dictated by : EDITH LAZO MD This examination was interpreted and the report reviewed and electronically signed by: EDITH LAZO MD on Apr 12 2023 1:54PM EST [facility] XR Hand - bilateral PA and L ateral and ObliqueOrdered By: [facility] Provider on 04-12-2023 [facility] XR WRIST 3V PA/LAT/OBL BILon [...] IMPRESSION: 1. Degenerative arthrosis of both wrists. Primary Care Pediatrician: [place] Transcribe Date/Time: Apr 12 2023 1:54P Dictated by : EDITH LAZO MD This examination was interpreted and the report reviewed and electronically signed by: EDITH LAZO MD on Apr 12 2023 1:55PM EST [id number] Normal [facility] XR Wrist - bilateral PA and Lateral and Obliqueon 04-12-2023 IMPRESSION: 1. Degenerative arthrosis of both wrists. Primary Care Pediatrician: [place] Transcribe Date/Time: Apr 12 2023 1:54P [...] erosions are demonstrated. DIVISION OF RADIOLOGY Provider, [facility] - 04/12/2023 * * *Final [...] IMPRESSION: 1. Degenerative arthrosis of both wrists. Primary Care Pediatrician: [place] Transcribe Date/Time: Apr 12 2023 1:54P Dictated by : EDITH LAZO MD This examination was interpreted and the report reviewed and electronically signed by: EDITH LAZO MD on Apr 12 2023 1:55PM EST [facility] JAKE SCREENING W TOMOon 04-16 [facility] SARS-CoV-2,INFLUENZA A/B NUC LEIC ACID TESTon 12-15-[address] EUA [address] [facility] Comment on above: Result [...] is terminated or revoked sooner. Performed at [facility] [address] [facility] [address] FLU A by PCR Negative [facility] FLU B by PCR Negative [facility] SARS-CoV-2 (COVID-19) RNA ANGELICA+probe Ql (Unsp spec) Abnormal NEG [facility] Comment on above: Result Comment: Posi tive for COVID-19 CRITICAL VALUE-PHYSICIAN MUST BE NOTIFIED RESULTS PHONED TO: Carmel Tinajero RN at 0928 VERBAL RESULT VERIFICATION RECEIVED EUA DISCLAIMER Normal [facility] Comment on above: Result Comment: [...] is terminated or revoked sooner. Performed at [facility] [id number] [place] [address] FLU A by PCR Negative Normal [facility] FLU B by PCR Negative Normal [facility] SARS-CoV-2 (COVID-19) RNA ANGELICA+probe Ql (Unsp spec) Abnormal NEG [facility] Comment on above: Result Comment: Posi tive for COVID-19 CRTV RESULTS PHONED TO: Jenny Fitzpatrick RN at 0854 VERBAL RESULT VERIFICATION RECEIVED CBC with Diffon 12-09-2021 AB IMMATURE NEUT 0.02 K/UL Normal 0.0-0.1 [facility] ABS BASO 0.02 K/UL Normal 0.00-0.22 [facility] ABS EOS 0.32 K/UL Normal 0-0.45 [facility] ABS NEUTROPHILS 4.34 K/UL Normal 1.8-7.7 [facility] ABS.NEUT.CALCULATED 4.34 K/UL Normal [facility] Comment on above: Result Comment: Perf ormed at [facility] [id number] [place] [address] Basophils/100 WBC (Bld) 0.30 % Normal 0-1 [facility] DIFF TYPE AUTO DIFF Normal [facility] Eosinophils/100 WBC (Bld) 5.10 % High 0-3 [facility] Erythrocyte distribution width (RBC) [Ratio] 12.7 % Normal 11.7-15.0 [facility] Hematocrit (Bld) [Volume fraction] 41.9 % Normal 36-44 [facility] Hemoglobin (Bld) [Mass/Vol] 13.5 g/dL Normal 12.0-15.0 [facility] Lymphocytes (Bld) [#/Vol] 1.15 10*3/uL Low 1.2-3.2 [facility] Lymphocytes/100 WBC (Bld) 18.30 % Low 20-40 [facility] MCH (RBC) [Entitic mass] 31.0 pg Normal 26-34 [facility] MCHC 32.2 % Normal 31-37 [facility] MCV (RBC) [Entitic vol] 96.3 fL Normal 80-100 [facility] MEAN PLT VOL 9.0 CU Normal 7.0-12.6 [facility] Monocytes (Bld) [#/Vol] 0.44 10*3/uL Normal 0-0.8 [facility] Monocytes/100 WBC (Bld) 7.00 % Normal 0-8 [facility] Neutrophils/100 WBC (Bld) 0.30 % Normal 0.0-1.0 [facility] Neutrophils/100 WBC (Bld) 69.00 % Normal 50-70 [facility] Platelets (Bld) [#/Vol] 240 10*3/uL Normal 150-450 [facility] RBC (Bld) [#/Vol] 4.35 10*6/uL Normal 4.0-4.9 [facility] RDW-SD 45.4 FL Normal 37.0-54.0 [facility] WBC (Bld) [#/Vol] 6.3 10*3/uL Normal 4.5-11.0 [facility] COMPREHENSIVE METABOLIC PANE Juanito 12-09-2021 Albumin [Mass/Vol] 4.2 g/dL Normal 3.5-5.0 [facility] Albumin/Globulin [Mass ratio] 1.6 {ratio} Normal 1.5-3.0 [facility] ALP [Catalytic activity/Vol] 80 U/L Normal 35-125 [facility] ALT [Catalytic activity/Vol] 26 U/L Normal 5-40 [facility] Anion gap [Moles/Vol] 7 mmol/L Normal 0-19 [facility] AST [Catalytic activity/Vol] 32 U/L Normal 5-40 [facility] Bilirubin [Mass/Vol] 0.3 mg/dL Normal 0.1-1.2 [facility] Calcium [Mass/Vol] 9.4 mg/dL Normal 8.5-10.4 [facility] Chloride [Moles/Vol] 103 mmol/L Normal 97-107 [facility] CO2 [Moles/Vol] 31 mmol/L Normal 24-31 [facility] Creatinine [Mass/Vol] 1.2 mg/dL Normal 0.4-1.6 [facility] ESTIMATED GFR 48 mL/min/1.73 m2 Normal [facility] Comment on above: Result Comment: CALCULATIONS OF ESTIMATED GFR ARE PERFORMED USING THE 2020 CKD-EPI STUDY REFIT EQUATION WITHOUT THE RACE VARIABLE FOR THE IDMS-TRACEABLE CREATININE METHODS. https://jasn.asnjournals.org/content//ASN.5480558 988 Performed at [facility] [id number] [place] [address] Globulin (S) [Mass/Vol] 2.6 g/dL Normal 1.9-3.7 [facility] Glucose [Mass/Vol] 87 mg/dL Normal 65-99 [facility] Potassium [Moles/Vol] 4.8 mmol/L Normal 3.4-5.1 [facility] Protein [Mass/Vol] 6.8 g/dL Normal 5.9-7.9 [facility] Sodium [Moles/Vol] 141 mmol/L Normal 133-145 [facility] Urea nitrogen [Mass/Vol] 13 mg/dL Normal 8-25 [facility] Urea nitrogen/Creatinine [Mass ratio] 10.8 mg/mg Normal 8-21 [facility] UA-REFLEX TO CULTUREon 12-09 EPI Normal [facility] Comment on above: Result Comment: Occa sional SQUAMOUS Performed at [facility] [address] [facility] [address] RBC NONE SEEN Normal 0-3 [facility] Urinalysis dipstick W Reflex Microscopic panel (U) MANUAL MICROSCOPIC URINES Normal [facility] WBC NONE SEEN Normal 0-3 [facility] Bacteria identified Cx Nom (U) CULTURE NOT INDICATED Normal [facility] Comment on above: Result Comment: CULT URE NOT INDICATED Performed at [facility] [address] [facility] [address] BILI Negative Normal NEG [facility] Clarity (U) CLEAR Normal [facility] Color (U) YELLOW Normal [facility] GLUC Negative Normal NEG [facility] Hemoglobin Ql (U) Negative Normal NEG [facility] KET Negative Normal NEG [facility] LEUK Negative Normal NEG [facility] NIT Negative Normal NEG [facility] pH (U) 8.0 [pH] Normal 4.6-8.0 [facility] PROT Negative Normal NEG [facility] SP GRAV,URINE 1.015 Normal 1.005-1.030 [facility] URO 0.2 MG/DL Normal 0-1.0 [facility] CREATININE, BLOOD (POC)on Creatinine [Mass/Vol] 1.20 mg/dL 0.7 - 1.4 mg/dL [facility] eGFR (POCT) 48 mL/min/1.73 m2 [facility] CTA ABD/PEL W IVCONon 2021 [facility] MRI Shoulder w/o Righton MRI Shoulder [...] by Gonsalo Alvarez on 10/21/2021 1010 Normal [facility] Specialist Complete Blood Count with Au to Diffon 04-21-2021 Basophils (Bld) [#/Vol] 0.03 10*3/uL Normal 0.00-0.20 [facility] Comment on above: Performed By: #### C BCAD, VITD, LIPD, CMP #### [facility] [address] [place], [place] [id number] Basophils/100 WBC (Bld) 0.5 % Normal [facility] Specialist Comment on above: Performed By: #### C BCAD, VITD, LIPD, CMP #### [facility] [address] [place], [place] [id number] Eosinophils (Bld) [#/Vol] 0.27 10*3/uL Normal 0.02-0.50 [facility] Comment on above: Performed By: #### C BCAD, VITD, LIPD, CMP #### [facility] [address] [place], [place] [id number] Eosinophils/100 WBC (Bld) 4.6 % Normal [facility] 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 Comment on above: Performed By: #### C BCAD, VITD, LIPD, CMP #### [facility] [address] [place], [place] [id number] Erythrocyte distribution width (RBC) [Ratio] 13.1 % Normal 11.0-15.0 [facility] Comment on above: Performed By: #### C BCAD, VITD, LIPD, CMP #### [facility] [address] [place], [place] [id number] Hematocrit (Bld) [Volume fraction] 43.9 % Normal 35.0-47.0 [facility] Specialist Comment on above: Performed By: #### C BCAD, VITD, LIPD, CMP #### [facility] [address] [place], [place] [id number] Hemoglobin (Bld) [Mass/Vol] 14.0 g/dL Normal 11.6-15.5 [facility] Comment on above: Performed By: #### C BCAD, VITD, LIPD, CMP #### [facility] [address] [place], [place] [id number] Lymphocytes (Bld) [#/Vol] 1.9 10*3/uL Normal 0.9-3.9 [facility] Comment on above: Performed By: #### C BCAD, VITD, LIPD, CMP #### [facility] [address] [place], [place] [id number] Lymphocytes/100 WBC (Bld) 31.8 % Normal [facility] Specialist Comment on above: Performed By: #### C BCAD, VITD, LIPD, CMP #### [facility] [address] [place], [place] [id number] MCH (RBC) [Entitic mass] 30.0 pg Normal 27.0-33.0 [facility] Comment on above: Performed By: #### C BCAD, VITD, LIPD, CMP #### [facility] [address] [place], [place] [id number] MCHC (RBC) [Mass/Vol] 31.9 g/dL Low 32.0-36.0 [facility] Comment on above: Performed By: #### C BCAD, VITD, LIPD, CMP #### [facility] [address] [place], [place] [id number] MCV (RBC) [Entitic vol] 94 fL Normal 80-100 [facility] Specialist Comment on above: Performed By: #### C BCAD, VITD, LIPD, CMP #### [facility] [address] [place], [place] [id number] Monocytes (Bld) [#/Vol] 0.5 10*3/uL Normal 0.2-0.9 [facility] Specialist Comment on above: Performed By: #### C BCAD, VITD, LIPD, CMP #### [facility] [address] [place], [place] [id number] Monocytes/100 WBC (Bld) 7.9 % Normal [facility] Comment on above: Performed By: #### C BCAD, VITD, LIPD, CMP #### [facility] [address] [place], [place] [id number] Neutrophils (Bld) [#/Vol] 3.2 10*3/uL Normal 1.5-7.8 [facility] Special[facility] Comment on above: Performed By: #### C BCAD, VITD, LIPD, CMP #### [facility] [address] [place], [place] [id number] Neutrophils/100 WBC (Bld) 54.9 % Normal [facility] Comment on above: Performed By: #### C BCAD, VITD, LIPD, CMP #### [facility] [address] [place], [place] [id number] Platelet mean volume (Bld) [Entitic vol] 9.90 fL Normal 7.50-12.50 [facility] Comment on above: Performed By: #### C BCAD, VITD, LIPD, CMP #### [facility] [address] [place], [place] [id number] Platelets (Bld) [#/Vol] 255 10*3/uL Normal 140-400 [facility] Comment on above: Performed By: #### C BCAD, VITD, LIPD, CMP #### [facility] [address] [place], [place] [id number] RBC (Bld) [#/Vol] 4.67 10*6/uL Normal 3.90-5.20 [facility] Comment on above: Performed By: #### C BCAD, VITD, LIPD, CMP #### [facility] [address] [place], [place] [id number] RDW-SD 44.8 fL Normal 37.0-50.0 [facility] Specialist Comment on above: Performed By: #### C BCAD, VITD, LIPD, CMP #### [facility] [address] [place], [place] [phone] WBC (Bld) [#/Vol] 5.8 10*3/uL Normal 3.8-11.0 [facility] Comment on above: Performed By: #### C BCAD, VITD, LIPD, CMP #### [facility] [address] [place], [place] [id number] Comprehensive Metabolic Pane juanito 04-21-2021 Albumin [Mass/Vol] 4.5 g/dL Normal 3.6-5.1 [facility] Comment on above: Performed By: #### C BCAD, VITD, LIPD, CMP #### [facility] [address] [place], [place] [id number] Albumin/Globulin [Mass ratio] 2.3 {ratio} Normal 1.0-2.5 [facility] Comment on above: Performed By: #### C BCAD, VITD, LIPD, CMP #### [facility] [address] [place], [place] [id number] ALP [Catalytic activity/Vol] 96 U/L Normal 35-119 [facility] Comment on above: Performed By: #### C BCAD, VITD, LIPD, CMP #### [facility] [address] [place], [place] [id number] ALT [Catalytic activity/Vol] 24 U/L Normal 6-33 [facility] Comment on above: Result Comment: 04/15 Female reference range changed. Performed By: #### C BCAD, VITD, LIPD, CMP #### [facility] [address] [place], [place] [id number] Anion gap [Moles/Vol] 18 mmol/L Normal 12-20 [facility] Comment on above: Result Comment: Effe ctive 05/21/2019 reference range changed. Performed By: #### C BCAD, VITD, LIPD, CMP #### [facility] [address] [place], [place] [id number] AST [Catalytic activity/Vol] 30 U/L Normal 9-34 [facility] Specialist Comment on above: Performed By: #### C BCAD, VITD, LIPD, CMP #### [facility] [address] [place], [place] [id number] Bilirubin [Mass/Vol] 0.51 mg/dL Normal 0.30-1.20 [facility] Comment on above: Performed By: #### C BCAD, VITD, LIPD, CMP #### [facility] [address] [place], [place] [id number] BUN/CREA 21 Ratio Normal 6-22 [facility] Specialist Comment on above: Performed By: #### C BCAD, VITD, LIPD, CMP #### [facility] [address] [place], [place] [id number] Calcium [Mass/Vol] 9.8 mg/dL Normal 8.6-10.2 [facility] Comment on above: Performed By: #### C BCAD, VITD, LIPD, CMP #### [facility] [address] [place], [place] [id number] Chloride [Moles/Vol] 103 mmol/L Normal 98-107 [facility] Comment on above: Performed By: #### C BCAD, VITD, LIPD, CMP #### [facility] [address] [place], [place] [id number] CO2 [Moles/Vol] 26 mmol/L Normal 20-31 [facility] Specialist Comment on above: Performed By: #### C BCAD, VITD, LIPD, CMP #### [facility] [address] [place], [place] [id number] Creatinine [Mass/Vol] 1.1 mg/dL Normal 0.6-1.4 [facility] Special[facility] Comment on above: Performed By: #### C BCAD, VITD, LIPD, CMP #### [facility] [address] [place], [place] [id number] eGFRAA 58 mL/min/1.73m2 Low >60 [facility] Specialist Comment on above: Performed By: #### C BCAD, VITD, LIPD, CMP #### [facility] [address] [place], [place] [id number] eGFRNAA 48 mL/min/1.73m2 Low >60 [facility] Specialist Comment on above: Performed By: #### C BCAD, VITD, LIPD, CMP #### [facility] [address] [place], [place] [id number] Globulin (S) [Mass/Vol] 2.0 g/dL Normal 1.9-3.7 [facility] 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 Comment on above: Performed By: #### C BCAD, VITD, LIPD, CMP #### [facility] [address] [place], [place] [id number] Glucose [Mass/Vol] 91 mg/dL Normal 65-99 [facility] 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 Comment on above: Result Comment: For FASTING Glucose --- ADA reference ranges: Normal 65-99 mg/dl Prediabetes 100-125 Diabetes >/= 126 Performed By: #### C BCAD, VITD, LIPD, CMP #### [facility] [address] [place], [place] [id number] Potassium [Moles/Vol] 4.5 mmol/L Normal 3.5-5.5 [facility] 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 Comment on above: Performed By: #### C BCAD, VITD, LIPD, CMP #### [facility] [address] [place], [place] [id number] Protein [Mass/Vol] 6.5 g/dL Normal 6.1-8.1 [facility] 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 Comment on above: Performed By: #### C BCAD, VITD, LIPD, CMP #### [facility] [address] [place], [place] [id number] Sodium [Moles/Vol] 142 mmol/L Normal 135-146 [facility] 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 Comment on above: Performed By: #### C BCAD, VITD, LIPD, CMP #### [facility] [address] [place], [place] [id number] Urea nitrogen [Mass/Vol] 24 mg/dL Normal 7-25 [facility] 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 Comment on above: Performed By: #### C BCAD, VITD, LIPD, CMP #### [facility] [address] [place], [place] [id number] Lipid Panelon 04-21-2021 Cholesterol [Mass/Vol] 182 mg/dL Normal 125-200 [facility] 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 Comment on above: Result Comment: Low risk < 200mg/dL Borderline risk 201-239 mg/dl High risk > or equal to 240 Performed By: #### C BCAD, VITD, LIPD, CMP #### [facility] [address] [place], [place] [id number] Cholesterol in HDL [Mass/Vol] 62 mg/dL Normal >40 [facility] Specialist Comment on above: Result Comment: High Cardiovascular Risk HDL <40 mg/dL Low Cardiovascular Risk HDL > or equal to 60 mg/dl Performed By: #### C BCAD, VITD, LIPD, CMP #### [facility] [address] [place], [place] [id number] Cholesterol in LDL [Mass/Vol] 98 mg/dL Normal [facility] 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 Comment on above: Result Comment: LDL ATP III CLASSIFICATION LDL less than 100 mg/dl Optimal LDL 100-129 mg/dl Near or above optimal LDL 130-159 Borderline high LDL 160-189 High LDL greater than 189 mg/dl Very High Performed By: #### C BCAD, VITD, LIPD, CMP #### [facility] [address] [place], [place] [id number] Cholesterol in VLDL [Mass/Vol] 22 mg/dL Normal [facility] 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 Comment on above: Performed By: #### C BCAD, VITD, LIPD, CMP #### [facility] [address] [place], [place] [id number] Cholesterol.total/Ch olesterol in HDL [Mass ratio] 3 {ratio} Normal [facility] Specialist Comment on above: Performed By: #### C BCAD, VITD, LIPD, CMP #### [facility] [address] [place], [place] [id number] Triglyceride [Mass/Vol] 108 mg/dL Normal 30-150 [facility] 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 Comment on above: Result Comment: TRIG ATPIII CLASSIFICATIONS TRIG less than 150 mg/dl Normal TRIG 150-199 mg/dl Borderline High TRIG 200-500 mg/dl High TRIG greather than 500 mg/dl Very High Performed By: #### C BCAD, VITD, LIPD, CMP #### [facility] [address] [place], [place] [id number] Microalbumin (with Creat)on 04-21-2021 mALB <1.2 Low [facility] Specialist Comment on above: Result Comment: Unab le to calculate mALB/Crea ratio, mALB is <1.2 mg/dL mALB reference range not established. Performed By: #### m ALBC #### [facility] [address] [facility] [place] [id number] UCREA 183 mg/dL Normal 28-217 [facility] 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 Comment on above: Performed By: #### m ALB #### [facility] [address] [place], [place] [id number] Q - URINALYSIS,COMPLETEon Appearance (U) CLEAR Normal CLEAR [facility] 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 Comment on above: Order Comment: [facility] performed at: [employer] [facility], [address] , [address] [place] [address], [address] [place] [address], Speech And Hearing Director: Clay Sparrow MD [facility] Date/Time: [facility] Results Received Date/Time: [facility] Reported Date/Time: Performed By: #### 3 4F #### [facility] [address] [place] [address] BACTERIA NONE SEEN Normal NONE SEEN [facility] 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 Comment on above: Order Comment: [facility] performed at: [employer] [facility], [address], [address] [place] [address], [address] [place] [address], Speech And Hearing Director: Clay Sparrow MD [facility] Date/Time: [facility] Results Received Date/Time: [facility] Reported Date/Time: Performed By: #### 3 4F #### [facility] [address] [place] [address] Bilirubin Ql (U) Negative Normal NEGATIVE [facility] 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 Comment on above: Order Comment: [facility] performed at: [employer] [facility], [address], [address] [place] [address], [address] [place] [address], Speech And Hearing Director: Clay Sparrow MD [facility] Date/Time: [facility] Results Received Date/Time: [facility] Reported Date/Time: Performed By: #### 3 4F #### [facility] [address] [place] [address] Color (U) YELLOW Normal YELLOW [facility] 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 Comment on above: Order Comment: [facility] performed at: [employer], [employer] [facility], [address] [place] [address], [address] [place] [address], [address] [place] [address], Speech And Hearing Director: Clay Sparrow MD [facility] Date/Time: [facility] Results Received Date/Time: [facility] Reported Date/Time: Performed By: #### 3 4F #### [facility] [address] [place] [address] Glucose Ql (U) Negative Normal NEGATIVE [facility]io 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 Comment on above: Order Comment: [facility] performed at: [employer], [employer] [facility], [address] [place] [address], [address] [place] [address], [address] [place] [place] [address], Speech And Hearing Director: Clay Sparrow MD [facility] Date/Time: [facility] Results Received Date/Time: [facility] Reported Date/Time: Performed By: #### 3 4F #### [facility] Default [address] [place] [address] HYALINE CAST NONE SEEN Normal NONE SEEN [facility] 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 Comment on above: Order Comment: [facility] Testing performed at: [employer] [facility], [address] [facility], [address] [place] [address], [address] [place] [address], Speech And Hearing Director: Clay Sparrow MD [facility] Date/Time: [facility] Results Received Date/Time: [facility] Reported Date/Time: Performed By: #### 3 4F #### [facility] Default [address] [place] [address] Ketones Ql (U) Negative Normal NEGATIVE [facility] 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 Comment on above: Order Comment: [facility] Testing performed at: [employer] [facility], [address] [place] [address], [address] [place] [address], [address] [place] [address], Speech And Hearing Director: Clay Sparrow MD [facility] Date/Time: [facility] Results Received Date/Time: [facility] Reported Date/Time: Performed By: #### 3 4F #### [facility] Default [address] [place] [address] Leukocyte esterase Test strip Ql (U) TRACE Abnormal NEGATIVE [facility] Specialist Comment on above: Order Comment: [facility] Testing performed at: [facility], [facility], [address] [place] [address], [address] [place] [address], [address] [place] [address], Speech And Hearing Director: Clay Sparrow MD [facility] Date/Time: [facility] Results Received Date/Time: [facility] Reported Date/Time: Performed By: #### 3 4F #### [facility] Default [address] [place] [address] Nitrite Ql (U) Negative Normal NEGATIVE [facility] Specialist Comment on above: Order Comment: [facility] Testing performed at: [facility], [facility], [address] [place] [address], [address] [place] [address], [address] [place] [address], Speech And Hearing Director: Clay Sparrow MD [facility] Date/Time: [facility] Results Received Date/Time: [facility] Reported Date/Time: Performed By: #### 3 4F #### [facility] Default [address] [place] [address] OCCULT BLOOD Negative Normal NEGATIVE [facility] 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 Comment on above: Order Comment: [facility] Testing performed at: [facility], [facility], [address] [facility], [address] [place] [address], [address] [place] [address], Speech And Hearing Director: Clay Sparrow MD [facility] Date/Time: [facility] Results Received Date/Time: [facility] Reported Date/Time: Performed By: #### 3 4F #### [facility] Default [address] [place] [address] pH (U) 6.5 [pH] Normal 5.0-8.0 [facility] 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 Comment on above: Order Comment: [facility] Testing performed at: [facility], [facility], [address] , [address] [place] [address], [address] [place] [address], Speech And Hearing Director: Clay Sparrow MD [facility] Date/Time: [facility] Results Received Date/Time: [facility] Reported Date/Time: Performed By: #### 3 4F #### [facility] Default [address] [place] [address] Protein Ql (U) Negative Normal NEGATIVE [facility] Specialist Comment on above: Order Comment: [facility] Testing performed at: [employer] [facility], [address] [facility], [address] [place] [address], [address] [place] [address], Speech And Hearing Director: Clay Sparrow MD [facility] Date/Time: [facility] Results Received Date/Time: [facility] Reported Date/Time: Performed By: #### 3 4F #### [facility] Default [address] [place] [address] RBC NONE SEEN Normal < OR = 2 [facility] 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 Comment on above: Order Comment: [facility] performed at: [employer] [facility], [address] [place] [address], [address] [place] [address], [address] [place] [address], Speech And Hearing Director: Clay Sparrow MD [facility] Date/Time: [facility] Results Received Date/Time: [facility] Reported Date/Time: Performed By: #### 3 4F #### [facility] Default [address] [place] [address] Specific gravity (U) [Rel density] 1.025 Normal 1.001-1.035 [facility] 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 Comment on above: Order Comment: [facility] performed at: [employer] [facility], [address] [facility], [address] [place] [address], [address] [place] [address], Speech And Hearing Director: Clay Sparrow MD [facility] Date/Time: [facility] Results Received Date/Time: [facility] Reported Date/Time: Performed By: #### 3 4F #### [facility] Default [address] [place] [address] SQUAMOUS EPITHELIAL CELLS 0-5 Normal < OR = 5 [facility] 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 Comment on above: Order Comment: [facility] performed at: [employer] [facility], [address], [address] [place], [place], [address] [place] [address], Speech And Hearing Director: Clay Sparrow MD [facility] Date/Time: [facility] Results Received Date/Time: [facility] Reported Date/Time: Performed By: #### 3 4F #### [facility] Default [address] [place] [address] WBC NONE SEEN Normal < OR = 5 [facility] 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 Comment on above: Order Comment: [facility] Testing performed at: [facility], [address] , [address] [place], [place], [address] [place] [address], Speech And Hearing Director: Clay Sparrow MD [facility] Date/Time: [facility] Results Received Date/Time: [facility] Reported Date/Time: Performed By: #### 3 4F #### [facility] Default [address] [place] [address] Vitamin D 25-OHon 04-21-2021 VIT D 25 OH 52 ng/ml Normal >29 [facility] 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 Comment on above: Result Comment: Ashley min D Status Deficiency <20 ng/mL Insufficiency 20-29 ng/mL Optimal 30-100 ng/mL Possible Toxicity >=150 ng/mL Performed By: #### C BCAD, VITD, LIPD, CMP #### [facility] [address] [place], [place] [id number] XR KNEE GENERAL 4V AP BOTH/P A BOTH/LAT/MERC LTon 12-04-2020 [facility] XR KNEE POST OP 3V AP/LAT/ME RCHANT LTon 04-01-2020 [facility] XR KNEE GENERAL 4V AP BOTH/P A BOTH/LAT/MERC LTon 12-20-2019 [facility] Basic Metabolic Panlon 12-05 Anion gap [Moles/Vol] 8 mmol/L Low 9-18 [facility] Calcium [Mass/Vol] 6.8 mg/dL Low 8.5-10.2 [facility] Chloride [Moles/Vol] 108 mmol/L High 97-105 [facility] CO2 [Moles/Vol] 20 mmol/L Low 22-30 [facility] Creatinine [Mass/Vol] 1.07 mg/dL High 0.58-0.96 [facility] eGFR- Amer. >60 Normal [facility] GFR/1.73 sq M predicted among non-blacks MDRD (S/P/Bld) [Vol rate/Area] 51 . Normal [facility] Comment on above: Result Comment: eGFR [...] ospital Comment on above: Result Comment: [place] Diabetes Association (ADA) provides guidance for cutoff [...] Standards of Medical Care in Diabetes 2016, [place] Diabetes Association. Diabetes Care. 2016.39(Suppl 1). Potassium [Moles/Vol] 3.3 mmol/L Low 3.7-5.1 [facility] Sodium [Moles/Vol] 136 mmol/L Normal 136-144 [facility] Urea nitrogen [Mass/Vol] 21 mg/dL Normal 7-21 [facility] CBCon 12-06-2019 Absolute nRBC <0.01 [facility]0.01 [facility] width (RBC) [Ratio] 12.5 % Normal 11.5-15.0 [facility] Hematocrit (Bld) [Volume fraction] 30.3 % Low 36.0-46.0 [facility] Hemoglobin (Bld) [Mass/Vol] 9.5 g/dL Low 11.5-15.5 [facility] MCH (RBC) [Entitic mass] 30.6 pG Normal 26.0-34.0 [facility] MCHC (RBC) [Mass/Vol] 31.4 g/dL Normal 30.5-36.0 [facility] MCV (RBC) [Entitic vol] 97.7 fL Normal 80.0-100.0 [facility] Platelet mean volume (Bld) [Entitic vol] 10.2 fL Normal 9.0-12.7 [facility] Platelets (Bld) [#/Vol] 188 10*3/uL Normal 150-400 [facility] RBC (Bld) [#/Vol] 3.10 10*6/uL Low 3.90-5.20 [facility] WBC (Bld) [#/Vol] 9.31 10*3/uL Normal 3.70-11.00 [facility] NURSING PROGon 12-06-2019 NURSING PROG HNO ID: [id number] Author: Tae (Rn) LOAN Alvarenga Service: Nursing [...] appointment and BMP within 24-48 hours at F lab. Verbalized understanding - all questions answered. This note was completed by: Tae Alvarenga RN [facility] PLAN OF CAREon 12-06-2019 PLAN OF CARE HNO ID: [id number] Author: Carlie Beltre (Specialist Icu) Service: ? Author Type: ? Type: Plan [...] capsule Commonly known as: MACROBID Carlie Beltre (Specialist Icu) PAGER: [email or web address] December 06, 2019 3:10 PM Normal [facility] PROGRESSon 12-06-2019 PROGRESS HNO ID: [id number] Author: Taz Dean Service: Orthopaedic Surgery Author [...] Osteoarthritis of Left Knee Breast Asymmetry Between [place] Breast and Reconstructed Breast S/P Partial Mastectomy, Right History of Breast Cancer Mass of Left Knee Tear of Lateral Meniscus of Left Knee Complex Tear of Lateral Meniscus of Left Knee As Current Injury Medication and Non-Pharmacologic VTE Prophylaxis/Anticoagula nts 12/05/19 1300 pneumatic compression stockings ([place]) 12/05/19 1300 graduated compression stockings ([place]) VTE Prophylaxis: VTE prophylaxis appropriate POST OPERATIVE COMPLICATIONS: Complicated by: uneventful/none SIGNATURE: Taz Dean DO PATIENT NAME: Gilda Sorto DATE: December 06, 2019 TIME: 9:46 AM PAGER/CONTACT #: ANNIE [phone] [facility] THERAPY [facility] 12-06-2019 THERAPY NT HNO ID: [id number] Author: Jessica (Ot) Simon Service: ? Author Type: Occupational Therapist Type: Therapy (PT/OT/Speech/Resp) Filed: 12/06/2019 3:16 PM Note Text: Occupational Therapy Evaluation SERVICE DATE: 12/06/2019 SERVICE TIME: 1423 to 1500 ROOM: [place] [address] Recommended Discharge Disposition: Home Recommended Discharge Disposition [...] of daily living (ADL) Interventions Provided: Evaluation;Self Intermediate Management (76535) $ Evaluation-Low (30980) Billed Units: 1 unit Self Intermediate Management (99455) Treatment Minutes: 20 1 unit Skilled Intervention(s): [...] relating to: -functional transfers (use of leg court collections officer to assist surgical leg in/out of bed, [...] of tub or shower seat/bench w/ leg court collections officer, importance of grab bars and not bathing [...] Walker;Shower Bench;Wheelchair;Elevat ed Toilet Seat;Long Handled Shoe Horn;Fastener Technologist Prior Functional Level: Within Functional Limits Prior [...] DATE: December 06, 2019 TIME: 3:10 PM [facility] THERAPY NT HNO ID: [id number] Author: Yadira NavasPtElayne Sher Service: Physical Therapy Author Type: Physical Therapist Type: Therapy (PT/OT/Speech/Resp) Filed: 12/06/2019 3:32 PM Note Text: Physical Therapy Treatment SERVICE DATE: 12/06/2019 SERVICE TIME: 2034 to 1402 ROOM: [place] [address] Recommended Discharge Disposition: Outpatient Physical Therapy Anticipated [...] (ADL);Muscle Weakness (generalized) Interventions Provided: Therapeutic Exercise (57935);Gait Training (64947) Therapeutic Exercise (73309) Treatment Minutes: 13 1 unit Skilled Intervention(s): Instruction in therapeutic exercise Verbal and tactile cuing provided for supine HEP Education in importance of changing positions slowly, staying active Gait Training (63986) Treatment Minutes: 15 2 units Skilled Intervention(s): [...] Walker;Shower Bench;Wheelchair;Elevat ed Toilet Seat;Long Handled Shoe Horn;Fastener Technologist Prior Functional Level: Within Functional Limits Prior [...] DATE: December 06, 2019 TIME: 2:35 PM [facility] THERAPY NT HNO ID: [id number] Author: Yadira (Pt) Christos Service: Physical Therapy Author Type: Physical Therapist Type: Therapy (PT/OT/Speech/Resp) Filed: 12/06/2019 12:23 PM Note Text: Physical Therapy Treatment SERVICE DATE: 12/06/2019 SERVICE TIME: 1010 to 1050 ROOM: [place] [address] Recommended Discharge Disposition: Outpatient Physical Therapy Anticipated [...] ess on feet Interventions Provided: Therapeutic Exercise (58883);Gait Training (56446) Therapeutic Exercise (30585) Treatment Minutes: 15 1 unit Skilled Intervention(s): Instruction in therapeutic exercise Verbal and tactile cuing provided for proper HEP completion Education in importance of mobility (see flow sheet for exercises completed) Gait Training (97804) Treatment Minutes: 25 2 units Skilled Intervention(s): [...] DATE: December 06, 2019 TIME: 11:10 AM [facility] ANES POSTPROC EVALon 020 [facility] POSTPROC EVAL HNO ID: [id number] Author: Bayron Everett Service: ? Author Type: [...] December 05, 2019 TIME: 1:23 PM CSN: [id number] [facility] ANES PRE-OPon 12-05-2019 ANES PRE-OP HNO ID: [id number] Author: Bayron Everett Service: ? Author Type: [...] December 05, 2019 TIME: 7:11 AM CSN: [id number] [facility] BRIEF OP NOTon 12-05-2019 BRIEF OP NOT HNO ID: [id number] Author: Taz Dean Service: Orthopaedic Surgery Author Type: Physician Type: Brief Op Note Filed: 12/05/2019 10:38 AM Note Text: TOTAL KNEE ARTHROPLASTY BRIEF OPERATIVE / PROCEDURE NOTE LOG ID: [id number] Surgery/Procedure Date: 12/05/2019 Incision/Procedure Start Time: 8:08 AM Incision Close/Procedure End Time: 10:34 AM Surgeon(s)/Proceduralis t(s) and Diet Counselor(s): Surgeon(s) and Role: * Taz Dean - Primary Physician Diet Counselor: Gavin Ballard Procedure(s): Procedure(s) (LRB): ARTHROPLASTY REPLACE JOINT TOTAL KNEE (Left) Anesthesia: Monitored Anesthesia Care with spinal Peripheral Block Type: Saphenous/Adductor Approach: Median parapatellar Findings: Advanced DJD left knee Estimated Blood Loss: 75 mls Specimens: None Complications: None Implant: Implant Name Type Inv. Item Serial No. Income Tax Investigator Lot No. [id number] No. Used Action INSERT PERSONA 6-9 C-D POLYETHYLENE 10MM ARTICULAR POSTERIOR STABILIZED - [id number] Joint - Knee INSERT PERSONA 6-9 C-D POLYETHYLENE 10MM ARTICULAR POSTERIOR STABILIZED [employer] [id number] Left 1 Implanted COMPONENT 29MM ALL POLY PATELLAR PSN - [id number] Joint - Knee COMPONENT 29MM ALL POLY PATELLAR PSN [employer] [id number] Left 1 Implanted COMPONENT PERSONA 6 NARROW COCR FEMORAL CEMENTED POSTERIOR STABILIZE KNEE - [id number] Joint - Knee COMPONENT PERSONA 6 NARROW COCR FEMORAL CEMENTED POSTERIOR STABILIZE KNEE [employer] [id number] Left 1 Implanted BASEPLATE PERSONA 5D D TIVANIUM TIBIAL CEMENTED STEM KNEE LEFT - [id number] Joint BASEPLATE PERSONA 5D D TIVANIUM TIBIAL CEMENTED STEM KNEE LEFT [employer] [id number] Left 1 Implanted CEMENT SIMPLEX P BONE RADIOPAQUE FULL DOSE STERILE - [id number] Cement / Putty CEMENT SIMPLEX P BONE RADIOPAQUE FULL DOSE STERILE STRY/[facility] [id number] Left 1 Implanted Bearing Surface: Fixed Fixation: Cemented SSI Risk Factors: NA Constraint: Posterior Stabilized Other: None Pre-Op/Pre-Procedure Diagnosis: DJD left knee Post-Op/Post-Procedure Diagnosis: DJD left knee Weight Bearing Status: Weight Bearing As Tolerated SIGNATURE: Taz Dean DO PATIENT NAME: Gilda Sorto DATE: December 05, 2019 TIME: 10:36 AM PAGER/CONTACT #: [facility] CASE MGT INIT [facility] 2019 CASE MGT INIT [facility] HNO ID: [id number] Author: Yanna (Rn) LOAN Barriga Service: Care Management Author Type: Registered Nurse Type: Care Mgt Initial Assessment Filed: 12/05/2019 1:53 PM Note Text: CARE MANAGEMENT: ASSESSMENT AND DISCHARGE PLAN SERVICE DATE: December 05, 2019 SERVICE TIME: 1:52 PM PRIMARY CARE PHYSICIAN: Gonsalo Hubbard MD ADMISSION STATUS: Ambulatory Surgery MEDICAL: [employer] MEDICARE PPO Patient/Animal Care Provider 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 Last discharge within 30 days: No Advance Directive: Current Advance Directive: Health Care Power of Peoplesoft Crm Developer;Living Will In Chart: Yes Up To Date [...] Primary Emergency Contact: Fareed Sorto Address: [address] [place] [address] [facility] Mobile Relation: Spouse Supportive Patient Contact:: [...] Completely I feel financially burdened by my fxm-le-nkjqve expenses for my prescription medication:: 0 - Disagree Completely Risk Score: 0 Patient is categorized as: Low risk < 2 Are you interested in bedside delivery of your medications? Yes Is Patient Psychosocially Complex?: No ASSESSMENT AND PLAN: Medical Needs: Medical Needs: None Psychosocial Needs: Psychosocial Needs: None FREEDOM OF CHOICE EXPLAINED: [facility] of Choice Given: No Reason Not Given: No placements necessary POTENTIAL TRANSITION PLANS Outpatient Therapy Patient from home with spouse. Has equipment. Has OP PT on 12/09 at 11:45 in [place]. SIGNATURE: Yanna Barriga RN PATIENT NAME: Gilda Sorto DATE: December 05, 2019 TIME: 1:52 PM PAGER/CONTACT #: [phone] [facility] NURSING PROGon 12-05-2019 NURSING PROG HNO ID: [id number] Author: Ekaterina NavasRn) LOAN Erickson Service: Nursing Author Type: Registered Nurse Type: Nursing Progress Note Filed: 12/05/2019 12:58 PM Note Text: Nursing Progress Note Patient Name: Gilda Sorto Patient Location: AV Surgery/AV Surgery Daily Note: Patient arrived in room 510 via bed transport. Patient alert and oriented x 3. This note was completed by: Ekaterina Erickson RN [facility] OPERATIVE NOon 12-05-2019 OPERATIVE NO HNO ID: [id number] Author: Taz Dean Service: Orthopaedic Surgery Author Type: Physician Type: Operative Report Filed: 12/05/2019 8:42 PM Note Text: [facility] OPERATIVE REPORT PATIENT NAME: Gilda Sorto AGE: [age] year old SEX: female LOG ID: [id number] SURGERY DATE: 12/05/2019 SURGEON: Taz Dean D.O. [place] MAORI: Gavin Ballard PA-C, her role in the [...] patellar bone calipers?were? used?to measure the patient's [place] patella and guide the amount of?bone resection needed.? Following this, the articular side of the patella was? resected?with a?bone saw, taking the appropriate amount of bone from the patella.??The? patellar sizing guide was then positioned?and?the patient?matched a 29-mm patellar component.? The appropriate size patellar guide was?positioned and the 3 harbor boat pilot holes were drilled. The 29-mm trial [...] followed by interrupted #1?Vicryl suture in a [id number] alternating fashion, sealing off the remaining portions [...] time.? Patient was then transferred to a [facility], and taken to?the recovery room in stable condition having?tolerated the?procedure well.?? Sponge and needle counts were correct.? The case was? clean and? elective.? There were no complications. Incision Start: 8:08 AM Incision Stop: 10:34 AM SIGNATURE: Taz Dean, DATE: December 05, 2019 TIME: 8:33 PM [facility] PT EDon 12-05-2019 PT ED HNO ID: [id number] Author: Jazz (Rn) LOAN Hilario Service: ? Author Type: Registered Nurse Type: Patient Education Filed: 12/05/2019 6:55 AM Note Text: PRE OP LEARNING ASSESSMENT PROCEDURE/SURGERY: left TKR READINESS TO LEARN COGNITIVE ABILITY: Alert and oriented MOTIVATION TO LEARN: Eager FAMILY SUPPORT: None - Unavailable/disinterest ed PATIENT LEARNS BEST BY: Individual Instruction FACTORS AFFECTING LEARNING: None PHYSICAL LIMITATIONS AFFECTING LEARNING: None [facility] THERAPY NTon 12-05-2019 THERAPY NT HNO ID: [id number] Author: Yadira (Pt) Christos Service: Physical Therapy Author Type: Physical Therapist Type: Therapy (PT/OT/Speech/Resp) Filed: 12/05/2019 5:45 PM Note Text: Physical Therapy Evaluation SERVICE DATE: 12/05/2019 SERVICE TIME: to 1703 ROOM: [place] [address] Recommended Discharge Disposition: Outpatient Physical Therapy Anticipated [...] on feet;Difficulty walking-musculoskeletal Interventions Provided: Evaluation;Gait Training (78385);Therapeutic Exercise (99175) $ Evaluation-Low (96319) Billed Units: 1 unit Therapeutic Exercise (28692) Treatment Minutes: 10 1 unit Skilled Intervention(s): Instruction in therapeutic exercise Verbal and tactile cuing provided for proper HEP completion Education in knee precautions and pain science Gait Training (29958) Treatment Minutes: 13 1 unit Skilled Intervention(s): [...] DATE: December 05, 2019 TIME: 5:30 PM [facility] Type and Screenon 12-05-2019 ABO/RH(D) Positive [facility] CNPNon 12-04-2019 CNPN Telephone (AVPRAD) NOREENGILDA Melissa ([id number]) 1950 F Date Time Provider Department 12/04/19 GAVIN BALLARD) PETTY During your visit today, we recorded the [...] was advised to stay at home after micahels virus test. Gavin Ballard PA-C Allergies As of Date: 12/04/2019 Noted Allergy Reaction SULFA (SULFONAMIDE ANTIBIOTICS) 03/25/2004 10 - Anaphylaxis Comments: rash, trouble breathing DOXYCYCLINE 08/11/2017 2 - Rash Date Reviewed: 12/04/2019 Reviewed by: Gavin L (Pa-C) [place] - Fully Assessed Reason for Visit: labs [...] left knee [M17.12] 10/13/2017 Breast asymmetry between [place] breast and jennifer*12/02/2017 More... S/P partial mastectomy, right [Z90.11] 12/02/2017 More... History of breast cancer [Z85.3] 12/02/2017 More... Mass of left knee [R22.42] 01/05/2018 Tear of lateral meniscus of left knee [S83.282A]01/06/2018 More... Complex tear of lateral meniscus of left knee a*01/06/2018 Encounter Status:Closed by GAVIN BALLARD on 12/04/19 [facility] NURSING PROGon 11-26-2019 NURSING PROG HNO ID: [id number] Author: Stephanie Cuevas (Rn) LOAN Bryant Service: [...] Bryant RN November 30, 2019 10:58 AM [facility] HOSPon 11-01-2019 HOSP Patient:Gilda Sorto MRN: [...] of left knee [M17.12] Breast asymmetry between [place] breast and reconstructed breast [N65.1] S/P partial [...] virus test. Gavin Ballard PA-C Progress Notes ([facility]): Ashleigh Alex APRN.AMARI 11/28/2019 8:45 AM Signed Please call patient and advise that on pre-op labs UA showed leukocytes and urine culture revealed possible contaimination Due to surgery being 12/04- will treat with low dose antibiotics for possible infection Rx for Macrobid sent to pharmacy. Advise to start AMBER and take BID for 7 days Thank you Ashleigh Alex APRN.[facility] Na Beltre LPN 11/28/2019 8:56 AM Signed Patient aware. Pharmacy verified. Will package pick up and start first does this am. Na Beltre LPN [facility] Vital Signs Date Time Vital Sign Value Performing Clinician Facility 03-19-2024 10:54-0500 Body height 160 cm Delfin Sears PA-C Work Phone: [facility] 03-19-2024 10:54-0500 Body mass index (BMI) [Ratio] 34.54 kg/m2 Delfin Sears PA-C Work Phone: [facility] 03-19-2024 10:54-0500 Body temperature 98.2 [degF] Delfin Sears PA-C Work Phone: [facility] 03-19-2024 10:54-0500 Body weight 88.45 kg Delfin Sears PA-C Work Phone: [facility] 03-19-2024 10:54-0500 Diastolic blood pressure 67 mm[Hg] Delfin Sears PA-C Work Phone: [facility] 03-19-2024 10:54-0500 Heart rate 89 /min Delfin Sears PA-C Work Phone: [facility] 03-19-2024 10:54-0500 Systolic blood pressure 130 mm[Hg] Delfin Sears PA-C Work Phone: [facility] 03-15-2024 08:39-0400 Body height 160 cm Summer Workman PA Work Phone: [facility] 03-15-2024 08:39-0400 Body mass index (BMI) [Ratio] 35.78 kg/m2 Summer Workman PA Work Phone: [facility] 03-15-2024 08:39-0400 Body weight 91.63 kg Summer Workman PA Work Phone: [facility] 03-15-2024 08:39-0400 Diastolic blood pressure 78 mm[Hg] Summer Workman PA Work Phone: [facility] 03-15-2024 08:39-0400 Heart rate 81 /min Summer Workman PA Work Phone: [facility] 03-15-2024 08:39-0400 SaO2% (BldA) [Mass fraction] 96 % Summer Workman PA Work Phone: [facility] 03-15-2024 08:39-0400 Systolic blood pressure 126 mm[Hg] Summer Workman PA Work Phone: [facility] 02-28-2024 15:03-0400 Body height 160 cm Summer Workman PA Work Phone: [facility] 02-28-2024 15:03-0400 Diastolic blood pressure 80 mm[Hg] Summer Workman PA Work Phone: [facility] 02-28-2024 15:03-0400 Heart rate 87 /min Summer Workman PA Work Phone: [facility] 02-28-2024 15:03-0400 SaO2% (BldA) [Mass fraction] 96 % Summer Workman PA Work Phone: [facility] 02-28-2024 15:03-0400 Systolic blood pressure 118 mm[Hg] Summer Workman PA Work Phone: [facility] 02-21-2024 12:55-0400 Body height 160.02 cm MD Gonsalo Hubbard Work Phone: [facility] 02-21-2024 12:55-0400 Body temperature 97.8 [degF] MD Gonsalo Hubbard Work Phone: [facility] 02-21-2024 12:55-0400 Body weight 91 kg MD Gonsalo Hubbard Work Phone: [facility] 02-21-2024 12:55-0400 Diastolic blood pressure 87 mm[Hg] MD Gonsalo Hubbard Work Phone: [facility] 02-21-2024 12:55-0400 Heart rate 93 /min MD Gonsalo Hubbard Work Phone: [facility] 02-21-2024 12:55-0400 Respiratory rate 18 /min MD Gonsalo Hubbard Work Phone: [facility] 02-21-2024 12:55-0400 SaO2% (BldA) [Mass fraction] 99 % MD Gonsalo Hubbard Work Phone: [facility] 02-21-2024 12:55-0400 Systolic blood pressure 145 mm[Hg] MD Gonsalo Hubbard Work Phone: [facility] 06-30-2023 09:46-0500 Body mass index (BMI) [Ratio] 35.07 kg/m2 Samia Warren CAFETERIA DIRECTOR Work Phone: [facility] 06-30-2023 09:46-0500 Body temperature 97.11 [degF] Samia Warren CAFETERIA DIRECTOR Work Phone: [facility] 06-30-2023 09:46-0500 Body weight 89.81 kg Samia Warren CAFETERIA DIRECTOR Work Phone: [facility] 06-30-2023 09:46-0500 Diastolic blood pressure 80 mm[Hg] Samia Sanz-Maria Esther CAFETERIA DIRECTOR Work Phone: [facility] 06-30-2023 09:46-0500 Heart rate 96 /min Samia Sanz-Maria Esther CAFETERIA DIRECTOR Work Phone: [facility] 06-30-2023 09:46-0500 SaO2% (BldA) [Mass fraction] 97 % Samia Sanz-Maria Esther CAFETERIA DIRECTOR Work Phone: [facility] 06-30-2023 09:46-0500 Systolic blood pressure 128 mm[Hg] Samia Sanz-Maria Esther CAFETERIA DIRECTOR Work Phone: [facility] 04-16-2022 11:52-0500 Body temperature 98.1 [degF] Sharon Rg APRN.INVENTORY CLERK Work Phone: [facility] 04-16-2022 11:52-0500 Diastolic blood pressure 60 mm[Hg] Sharon Rg DISH MACHINE OPERATOR.INVENTORY CLERK Work Phone: [facility] 04-16-2022 11:52-0500 Heart rate 85 /min Sharon Rg DISH MACHINE OPERATOR.INVENTORY CLERK Work Phone: [facility] 04-16-2022 11:52-0500 Respiratory rate 20 /min Sharon Rg APRN.INVENTORY CLERK Work Phone: [facility] 04-16-2022 11:52-0500 SaO2% (BldA) [Mass fraction] 100 % Sharon Rg APRN.INVENTORY CLERK Work Phone: [facility] 04-16-2022 11:52-0500 Systolic blood pressure 117 mm[Hg] Sharon Rg DISH MACHINE OPERATOR.INVENTORY CLERK Work Phone: [facility] Encounters Encounter Date Encounter Type Care Provider Facility Start: 03-19-2024 End: 03-19-2024 Patient encounter procedure Delfin Sears PA-C Work Phone: Plastic Surgery Comment on above: Pain in both hands ( Primary Dx) Start: 03-19-2024 End: 03-19-2024 ambulatory GONSALO HUBBARD Facility:[facility] Start: 03-16-2024 End: 03-16-2024 ambulatory SUMMER M WORKMAN Not Available Start: 03-15-2024 End: 03-15-2024 Office outpatient visit 15 minutes Summer M Workman PA Work Phone: [facility] Comment on above: Right leg pain (Prim chris Dx); Contusion of right lower leg, subsequent encounter Start: 03-15-2024 End: 03-15-2024 ambulatory SUMMER M WORKMAN Not Available Start: 02-28-2024 End: 02-28-2024 ambulatory SUMMER M WORKMAN Not Available Start: 02-28-2024 End: 02-28-2024 Office outpatient visit 25 minutes Summer M Workman PA Work Phone: [facility] Comment on above: Contusion of right l ower leg, initial encounter (Primary Dx); Pain in right lower leg; Traumatic hematoma of right lower leg, initial encounter Start: 02-28-2024 End: 02-28-2024 ambulatory SUMMER M WORKMAN Not Available Start: 02-21-2024 End: 02-21-2024 Emergency department patient visit MD Gonsalo Hubbard Work Phone: [facility] Work Phone: Start: 01-06-2024 End: 01-06-2024 ambulatory GRAZYNA R RISALITI Not Available Start: 12-28-2023 End: 12-28-2023 ambulatory GRAZYNA R RISALITI Not Available Start: 09-26-2023 End: 09-26-2023 ambulatory GONSALO HUBBARD Not Available Start: 06-30-2023 End: 06-30-2023 Office outpatient visit 15 minutes Samia Warren CAFETERIA DIRECTOR Work Phone: [facility] Comment on above: Viral upper respirat ory tract infection (Primary Dx); Cough, unspecified type; Insomnia, unspecified type; Morbid obesity (CMS/HCC); History of breast cancer Start: 06-30-2023 End: 06-30-2023 ambulatory GONSALO HUBBARD Not Available Start: 04-26-2023 End: 04-26-2023 ambulatory GONSALO HUBBARD Not Available Start: 04-19-2023 End: 04-19-2023 ambulatory Gonsalo Hubbard Facility:[facility] Start: 04-12-2023 End: 04-12-2023 ambulatory GONSALO HUBBARD Facility:[facility] Start: 04-12-2023 End: 04-12-2023 Subsequent hospital visit by physician [facility] Work Phone: Radiology Comment on above: Pain [R52] Start: 05-04-2022 ambulatory JALEN GOBEZIE Facility :UNKNOWN Start: 04-16-2022 Documentation procedure Mammog samantha Coordinator [facility] Start: 04-16-2022 Letter encounter Mammography Coordinator [facility] Department Start: 04-16-2022 End: 04-16-2022 ambulatory Sharon Rg APRN.INVENTORY CLERK Work Phone: Hematology/Oncology Comment on above: Encounter for screen ing mammogram for breast cancer (Primary Dx); Stage 1 breast cancer, ER-, left (HCC) Start: 04-16-2022 End: 04-16-2022 Patient encounter procedure Sharon Rg APRN.INVENTORY CLERK Work Phone: [facility] Start: 04-16-2022 End: 04-16-2022 Subsequent [...] Radiology Start: 11-20-2021 Orders Only Sharon castelan DISH MACHINE OPERATOR.INVENTORY CLERK Work Phone: Hematology/Oncology Comment on above: Encounter [...] hospital visit by physician Xr [facility] [employer] General Radiology Comment on above: S/P total knee arthr oplasty, left [Z96.652] Start: 04-01-2020 End: 04-01-2020 Subsequent hospital visit by physician Xr [facility] Work Phone: Radiology Comment on above: post op Start: 12-20-2019 End: 12-20-2019 Subsequent hospital visit by physician Xr [facility] [employer] General Radiology Comment on above: Primary osteoarthrit is of left knee [M17.12] Procedures Date Procedure Procedure Detail Performing Clinician Start: 02-21-2024 Plain X-ray of left wrist MD Gonsalo Hubbard Work Phone: Start: 02-21-2024 X-ray of right knee, four views MD Gonsalo Hubbard Work Phone: Start: 06-30-2023 STATUS COVID-19/FLU Obie tlin E Chadd-Maria Esther CAFETERIA DIRECTOR Work Phone: Start: 04-12-2023 Radex hand minimum 3 views Kayla Mata MD Work Phone: Start: 04-16-2022 JAKE SCREENING W JOE Rg DISH MACHINE OPERATOR.INVENTORY CLERK Work Phone: Start: 04-16-2022 Mammography Sharon Hernandez DISH MACHINE OPERATOR.INVENTORY CLERK Work Phone: Start: 11-25-2021 Ct angio abd&plvis cntrst mtrl w/wo cntrst img Paco Ramirez MD Work Phone: Start: 11-25-2021 Creatinine [Mass/vol ume] in Serum or Plasma [facility] Provider Start: 12-04-2020 Radiologic exam knee complete 4/more views Tazlonnie Wilsonjose antonio DO Work Phone: Start: 11-24-2020 Mammography Paco [...] Start: 12-09-2024 Diabetes Screening Diabetes Screenin g [facility] Start: 05-01-2024 End: 05-01-2024 Patient encounter procedure 05/01/2024 3:00 PM EST Office Visit [facility] [address] [place] [address] Kemar Blandon PA [address] [place] [address] [facility] Start: 04-26-2024 Medicare Annual Well ness (AWV) Medicare Annual Wellness (AWV) [facility] Start: 04-24-2024 End: 04-24-2024 Patient encounter procedure [facility] Start: 04-19-2024 Screening for malign ant neoplasm of breast Mammogram Screening [facility] Start: 03-16-2024 End: 03-16-2024 Professional / ancillary services management 03/16/2024 1:45 PM EDT Ancillary Procedure [facility] [address] [place] [id number] Start: 01-15-2024 Covid-19 Vaccine ( season) Covid-19 Vaccine () [facility] Start: 01-15-2024 Influenza vaccination Influenza Vacc ine (#1) [facility] Start: 11-25-2023 DIABETES SCREEN DIABETES SCREEN [facility] Start: 11-25-2023 Diabetes Screening Diabetes Screenin g [facility] Start: 05-16-2023 Advance Directive Discussion Advance Directive Discussion [facility] Start: 04-16-2023 BP CONTROLLED (<130/80) BP CONTROLLE D (<130/80) [facility] Start: 04-16-2023 End: 05-16-2023 JAKE SCREENING JAKE SCREENING Radiology Routine Encounter for screening mammogram for breast cancer Expected: 04/16/2023, Expires: 05/16/2023 [facility] Work Phone: Comment on above: Expected: 04/16/2023 , Expires: 05/16/2023 Start: 04-16-2023 Mammography [facility] Start: 04-16-2023 Screening for malign ant neoplasm of breast Mammogram Screening [facility] Start: 01-14-2023 Covid-19 Vaccine () Covid-19 Vaccine () [facility] Start: 01-14-2023 Influenza vaccination Influenza Vacc ine (#1) [facility] Start: 05-16-2022 Advance Directive Discussion Advance Directive Discussion [facility] Start: 05-16-2022 Depression Assessment Depression Ass essment [facility] Start: 01-14-2022 Influenza vaccination INFLUENZA (#1) [facility] Start: 11-24-2021 Mammography MAMMOGRAM [facility] Start: 11-21-2021 Adult depression screening assessment DEPRESSION SCREENING [facility] Start: 09-23-2021 End: 11-23-2021 CREATININE BLD CREATININE BLD Lab Routine Renal artery aneurysm (HCC) Expected: 09/23/2021, Expires: 11/23/2021 [facility] Work Phone: Comment on above: Expected: 09/23/2021 , Expires: 11/23/2021 Start: 08-08-2021 COVID-19 VACCINE (3 - Booster for Moderna series) COVID-19 VACCINE (3 - Booster for Moderna series) [facility] Start: 07-11-2021 COVID-19 VACCINE (4 - Booster for Moderna series) COVID-19 VACCINE (4 - Booster for Moderna series) [facility] Start: 05-16-2021 ADVANCE DIRECTIVE DISCUSSION ADVANCE DIRECTIVE DISCUSSION [facility] Start: 05-16-2021 DEPRESSION ASSESSMENT DEPRESSION ASS ESSMENT [facility] Start: 09-06-2017 Lipid 1996 panel - S compa or Plasma Lipid Screening [facility] Start: 09-06-2017 Lipid panel Lipid Screening [facility] Start: 09-06-2017 LIPID SCREEN LIPID SCREEN [facility] Start: 2015 BONE DENSITY BONE DENSITY [facility] Start: 2015 Bone Density Screening Bone Density Screening [facility] Start: 2015 PNEUMOCOCCAL: 65+ (1 - PCV) PNEUMOCOCCAL: 65+ (1 - PCV) [facility] Start: 2015 PNEUMOVAX AGE 65 AND OVER WITH 5YR LOOKBACK (#1) PNEUMOVAX AGE 65 AND OVER WITH 5YR LOOKBACK (#1) [facility] Start: 2015 Screening for osteoporosis Bone Density Screening [facility] Start: 11-08-2014 Urine microalbumin profile DTaP,Tdap,Td Vaccine (1 - Tdap) [facility] Start: 2010 RSV Vaccine (1 - 1-d ose 60+ series) RSV Vaccine (1 - 1-dose 60+ series) [facility] Start: 2010 RSV Vaccine (1 - Ris k 60-74 years 1-dose series) RSV Vaccine (1 - Risk 60-74 years 1-dose series) [facility] Start: 2000 SHINGRIX VACCINE (1 of 2) SHINGRIX VACCINE (1 of 2) [facility] Start: 1995 COLOGUARD (FIT-DNA) COLOGUARD (FIT-D NA) [facility] Start: 1995 Colonoscopy COLONOSCOPY [facility] Start: 1995 COLORECTAL CANCER SCREENING COLORECTAL CANCER SCREENING [facility] Start: [address] COLONOGRAPHY [facility] Start: 1995 FECAL OCCULT BLOOD FECAL OCCULT BLOO D [facility] Start: 1995 Screening for malign ant neoplasm of colon [facility] Start: 1995 [facility]COPY [facility] Start: 1969 Urine microalbumin profile DTAP,TDAP,TD (1 - Tdap) [facility] Start: 1968 ANNUAL PCP TEAM CASING INSPECTOR LOIS DISEASE VISIT ANNUAL PCP TEAM CHRONIC DISEASE VISIT [facility] Start: 1968 Anxiety Screening Anxiety Screening [facility] Start: 1968 BP CONTROLLED (<130/80) BP CONTROLLE D (<130/80) [facility] Start: 1968 Depression Screening Depression Scre ening [facility] Start: 1968 HEPATITIS C SCREENING HEPATITIS C [facility] Start: 1968 Hepatitis C screening Hepatitis C [facility] Start: 1950 Screening for malign ant neoplasm of colon [facility] End: 10-23-2022 Ct angio abd&plvis cntrst mtrl w/wo cntrst img CTA ABD/PEL WO/W IVCON Radiology Routine Renal artery aneurysm (HCC) 1 Occurrences starting 09/23/2021 until 10/23/2022 [facility] Work Phone: Comment on above: 1 Occurrences starti ng 09/23/2021 until 10/23/2022 Patient Education General Trauma (DC) [facility] Work Phone: Patient referral [facility] Work Phone: End: 12-20-2022 Screening mammography bi 2-view breast inc cad JAKE SCREENING Radiology Routine Encounter for screening mammogram for breast cancer 1 Occurrences starting 11/20/2021 until 12/20/2022 [facility] Work Phone: Comment on above: 1 Occurrences starti ng 11/20/2021 until 12/20/2022 XR Tibia and Fibula - right 2 Views XR tibia fibula 2 views right Imaging STAT Contusion of right lower leg, initial encounter Pain in right lower leg 02/28/2024 4:09 PM EDT [facility] Work Phone: [facility] Immunizations Immunization Date Immunization Notes Care Provider Sugey anaya 02-27-2024 Seasonal trivalent influenza vaccine, adjuvanted, preservative free Summer Workman PA Work Phone: [facility] 03-19-2023 Influenza, Seasonal, Quadrivalent, Adjuvanted Samia Chadd-Maria Esther CAFETERIA DIRECTOR Work Phone: [facility] 03-19-2023 influenza virus vaccine, unspecified formulation Xr [place] Work Phone: [facility] 03-30-2022 SARS-COV-2 (COVID-19 ) vaccine, mRNA, spike protein, LNP, bivalent, PF Samia Chadd-Maria Esther CAFETERIA DIRECTOR Work Phone: [facility] 03-12-2022 Influenza, High-dose Seasonal, Quadrivalent, Preservative Free Samia Chadd-Maria Esther CAFETERIA DIRECTOR Work Phone: [facility] 03-12-2022 influenza virus vaccine, unspecified formulation Xr [facility] 03-10-2021 COVID-19 mRNA-1273 (Moderna) MD Gonsalo Hubbard Work Phone: [facility] 02-12-2021 Influenza, High-dose Seasonal, Quadrivalent, Preservative Free Samia Chadd-Maria Esther CAFETERIA DIRECTOR Work Phone: [facility] 07-21-2020 COVID-19 vaccine, fu ll dose (MODERNA) Ct (I-Stat) Work Phone: [facility] 06-23-2020 COVID-19 vaccine, fu ll dose (MODERNA) Ct (I-Stat) Work Phone: [facility] 01-17-2020 influenza, high dose seasonal, preservative-free Samia Chadd-Maria Esther CAFETERIA DIRECTOR Work Phone: [facility] 01-17-2020 influenza, injectabl e, quadrivalent, preservative free Summer Workman PA Work Phone: [facility] 12-24-2019 zoster vaccine recombinant Samia Chadd-Maria Esther CAFETERIA DIRECTOR Work Phone: [facility] 10-16-2019 zoster vaccine recombinant Samia Chadd-Maria Esther CAFETERIA DIRECTOR Work Phone: [facility] 03-19-2019 pneumococcal polysaccharide vaccine, 23 valent Samia Chadd-Maria Esther CAFETERIA DIRECTOR Work Phone: [facility] 03-15-2019 influenza, high dose seasonal, preservative-free Summer Workman PA Work Phone: [facility] 02-20-2018 influenza, high dose seasonal, preservative-free Summer Workman PA Work Phone: [facility] 03-01-2017 pneumococcal polysaccharide vaccine, 23 valent Samia Chadd-Maria Esther CAFETERIA DIRECTOR Work Phone: [facility] 02-13-2017 influenza, injectabl e, quadrivalent, preservative free Samia Chadd-Maria Esther CAFETERIA DIRECTOR Work Phone: [facility] 02-06-2017 influenza, high dose seasonal, preservative-free Summer Workman PA Work Phone: [facility] 12-06-2016 hepatitis A and hepatitis B vaccine Samia Chadd-Maria Esther CAFETERIA DIRECTOR Work Phone: [facility] 05-28-2016 hepatitis A and hepatitis B vaccine Samia Chadd-Maria Esther CAFETERIA DIRECTOR Work Phone: [facility] 04-27-2016 hepatitis A and hepatitis B vaccine Samia Chadd-Maria Esther CAFETERIA DIRECTOR Work Phone: [facility] 04-27-2016 typhoid capsular polysaccharide vaccine Samia Chadd-Maria Esther CAFETERIA DIRECTOR Work Phone: [facility] 03-29-2016 influenza, high dose seasonal, preservative-free Summer Workman PA Work Phone: [facility] 03-24-2015 pneumococcal conjuga te vaccine, 13 valent Samia Warren CAFETERIA DIRECTOR Work Phone: [facility] 03-20-2015 influenza, injectabl e, quadrivalent, preservative free Samia Warren CAFETERIA DIRECTOR Work Phone: [facility] 11-07-2014 tetanus and diphther ia toxoids, adsorbed, preservative free, for adult use (2 Lf of tetanus toxoid and 2 Lf of diphtheria toxoid) Samia Warren CAFETERIA DIRECTOR Work Phone: [facility] 01-08-2013 zoster vaccine, live Samia Warren CAFETERIA DIRECTOR Work Phone: [facility] Payers Date Payer Category Payer Self-pay [id number] 2022 Medicaid [employer] MEDICARE A DVANTAGE [id number] 2021 Medicare AET[employer] MEDICARE A ETNA MEDICARE PPO [id number] 2021-Present [phone] [address] [place] [address] [facility] [id number] 2021 Private Health Insurance [facility] [id number] 2019 Medicare AETNA MEDICARE A ETNA MEDICARE PPO [id number] 2019-Present [phone] [address] [place] [address] PPO [id number] 2019 Medicare [id number] 1950 Unknown [id number] [id number]. 693 1950 Unknown [id number] 2.16.840.1.800781.3.579.2. 693 1950 Unknown [id number] 2.16.840.1.342318.3.579.2. 693 1950 Unknown [id number] 2.16.840.1.891639.3.579.2. 693 1950 Unknown [id number] 2.16.840.1.082332.3.579.2. 693 1950 Unknown [id number] 2.16.840.1.190641.3.579.2. 1259 1950 Unknown [id number] 2.16.840.1.550660.3.579.2. 9 1950 Unknown [id number] 2.16.840.1.337483.3.579.2. 1259 1950 Unknown [id number] 2.16.840.1.165478.3.579.2. 1259 1950 Unknown [id number] 2.16.840.1.783996.3.579.2. 9 1950 Unknown [id number] 2.16.840.1.128787.3.579.2. 1259 1950 Unknown [id number] 2.16.840.1.147511.3.579.2. 1259 1950 Unknown [id number] 2.16.840.1.407604.3.579.2. 1259 1950 Unknown [id number] 2.16.840.1.872175.3.579.2. 1259 Medicare Medicare [id number] Unknown [id number] [id number]. 531 Unknown [id number] 2..[id number]. 531 Social History Date Type Detail Facility Start: 05-01-2012 End: 04-12-2023 Tobacco smoking status NHIS Never smoked tobacco [facility] Start: 11-24-2020 End: 04-12-2023 Alcohol intake Current drinker of alcohol (finding) [facility] Start: 11-26-2019 End: 12-05-2019 History SDOH Alcohol Frequency 5 [facility] Start: 11-26-2019 End: 12-05-2019 History SDOH Alcohol Std Drinks 1 [facility] Start: 11-26-2019 History SDOH Alcohol Comment A GLASS OF WINE ALMOST EVERY NIGHT BEFORE BED [facility] Start: 12-05-2019 History SDOH Transport Med 2 [facility] Start: 1950 Sex Assigned At Not on file [facility] Start: 09-12-2021 End: 09-22-2021 Exposure to SARS-CoV-2 (event) Unable to assess [facility] Start: 11-20-2019 End: 04-16-2022 Exposure to SARS-CoV-2 (event) Not sure [facility] Start: 05-01-2012 End: 04-12-2023 Tobacco use and exposure Smokeless tobacco non-user [facility] Start: 11-26-2019 End: 04-12-2023 History of Social function [facility] Work Phone: Start: 11-26-2019 End: 04-12-2023 Alcohol Use Disorder Identification Test - Consumption [AUDIT-C] [facility] Work Phone: How often to you hav e a drink containing alcohol? 4 or more times a week [facility] Work Phone: How many standard dr inks containing alcohol do you have on a typical day? 1 or 2 [facility] Work Phone: How often do you hav e 6 or more drinks on 1 occasion? Never [facility] Work Phone: How hard is it for y ou to pay for the very basics like food, housing, medical care, and heating Not hard at all [facility] (I/We) worried kev er (my/our) food would run out before (I/we) got money to buy more. Never true [facility] Start: 06-30-2023 End: 03-15-2024 Alcohol intake Ex-drinker (finding) [facility] Start: 01-15-2023 Alcohol Comment caffeine: 1-2 cups per day of coffee [facility] Start: 1950 Sex Assigned At Female [facility] Start: 12-07-2022 Gender identity Identifies as female gender (finding) [facility] Medical Equipment Procedure Code Equipment Code Equipment Origin al Text Equipment Identifier Dates Cement Simplex P Bone Radiopaque Full Dose Sterile - [id number] Start: 12-05-2019 Putnam Cv 6x6in Thk1.65mm Ptfe - [id number] Start: 09-12-2012 Insert Persona 6 -9 C-D Polyethylene 10mm Articular Posterior Stabilized - [id number] Start: 12-05-2019 Component 29mm A ll Poly Patellar Psn - [id number] Start: 12-05-2019 Component Person a 6 Narrow Cocr Femoral Cemented Posterior Stabilize Knee - [id number] Start: 12-05-2019 Baseplate Person a 5d D Tivanium Tibial Cemented Stem Knee Left - [id number] Start: 12-05-2019 Clinical Notes 12-20-2019 to 03-19-2024 Delfin Sears PA-C - 03/19/2024 10:43 AM BUDDY Wolf - 03/15/2024 8:45 AM BUDDY Tran - 02/28/2024 3:00 PM Conor Warren NP - 06/30/2023 9:45 AM EST Note Date & Type Note Facility 03-19-2024 Note HNO ID: [id number] Author: DELFIN SEARS PA-C Service: ? Author Type: Physician Diet Counselor Type: Progress Notes Filed: 03/19/2024 14:52 Note Text: PLASTIC SURGERY DEPARTMENT [facility] Hand Surgery Note [x] New referred by []self []physician.......... [] Follow-up CC: ..bilateral wrist/hand pain............ ? HPI: Gilda is a 73 year old female who presents today for bilateral wrist and hand pain. Patient states that her left hand is hurting significantly more than her right but would like injections in each one. She was last seen by Dr. Mata on 04/12/24 where she had bilateral CMCJ injections to her thumbs. The pain just started coming back this past month. Job:.retired......... Recreational activities with hands: .beading....... Dominant [...] PREVIOUS STEROID INJECTION: NO [] YES [x] .....100.......% []R []L []R=L []R>L []R Symptoms improved: Tingling [] Numbness [] Pain [x] ANY TINGLING OR NUMBNESS IN THE FEET: NO [] YES [] .............. No results found for: HBA1C Last 10 Encounter BP Readings: Date: BP: 04/16/2022 117/60 11/25/2021 139/89 11/24/2020 130/71 12/05/2019 111/63 11/26/2019 129/61 11/22/2019 123/64 11/22/2019 116/51 11/01/2019 134/57 11/14/2018 134/62 11/01/2018 136/77 Latest Ref Rng AND Units 09/15/2012 11/26/2019 12/06/2019 CBC WBC 3.70 - 11.00 k/uL 8.86 5.18 9.31 RBC 3.90 - 5.20 m/uL 2.86 4.52 3.10 Hemoglobin 11.5 - 15.5 g/dL 8.5 14.0 9.5 Hematocrit 36.0 - 46.0 % 26.9 44.6 30.3 MCV 80.0 - 100.0 fL 94.1 98.7 97.7 MCH 26.0 - 34.0 pG 29.7 31.0 30.6 MCHC 30.5 - 36.0 g/dL 31.6 31.4 31.4 RDW-CV 11.5 - 15.0 % 13.4 12.8 12.5 Platelet Count 150 - 400 k/uL 164 259 188 MPV 9.0 - 12.7 fL 9.5 10.2 10.2 Baso% % 0.8 Abs Neut (ANC) 1.45 - 7.50 k/uL 3.16 Abs Lymph 1.00 - 4.00 k/uL 1.29 Abs Florence <0.87 k/uL 0.41 Abs Eosin <0.46 k/uL 0.26 Abs Baso <0.11 k/uL 0.04 Diff Type Auto Diff Latest Ref Rng AND Units 11/24/2020 11/24/2020 11/25/2021 CMP Sodium 136 - 144 mmol/L 138 Potassium 3.7 - 5.1 mmol/L 4.5 Chloride 97 - 105 mmol/L 100 CO2 22 - 30 mmol/L 28 Glucose 74 - 99 mg/dL 111 BUN 7 - 21 mg/dL 19 Creatinine 0.58 - 0.96 mg/dL 1.34 Creatinine (POCT) 0.7 - 1.4 mg/dL 1.30 1.20 EGFR-All Other Races . 39 EGFR- 47 Calcium 8.5 - 10.2 mg/dL 9.2 YES NO Smoking, vaping, nicotine, cannabis [] [...] meds infusion, etc) [] [x] What........... Reason:........... Upper extremity AV fistula (dialysis) or vessels injury or disease [] [x] Overhead activities [] [x] Cervical problems [] [x] []C3 []C4 []C5 []C6 []C7 []C8 []T1 []Conservative []Fusion []Discectomy []Other... Pt AGAINST blood transfusion? [] [x] Objective: PAS (more content not included)... [facility] 03-19-2024 History of Present illness Narrative Images from the original note were not included. PLASTIC SURGERY DEPARTMENT [facility] Hand Surgery Note [x] New referred by []self []physician.......... [] Follow-up CC: ..bilateral wrist/hand pain............ ? HPI: Gilda is a 73 year old female who presents today for bilateral wrist and hand pain. Patient states that her left hand is hurting significantly more than her right but would like injections in each one. She was last seen by Dr. Mata on 04/12/24 where she had bilateral CMCJ injections to her thumbs. The pain just started coming back this past month. Job:.retired......... Recreational activities with hands: .beading....... Dominant [...] PREVIOUS STEROID INJECTION: NO [] YES [x] .....100.......% []R []L []R=L []R>L []R<L Symptoms improved: Tingling [] Numbness [] Pain [x] ANY TINGLING OR NUMBNESS IN THE FEET: NO [] YES [] .............. No results found for: HBA1C Last 10 Encounter BP Readings: Date: BP: 04/16/2022 117/60 11/25/2021 139/89 11/24/2020 130/71 12/05/2019 111/63 11/26/2019 129/61 11/22/2019 123/64 11/22/2019 116/51 11/01/2019 134/57 11/14/2018 134/62 11/01/2018 136/77 Latest Ref Rng & Units 09/15/2012 11/26/2019 12/06/2019 CBC WBC 3.70 - 11.00 k/uL 8.86 5.18 9.31 RBC 3.90 - 5.20 m/uL 2.86 4.52 3.10 Hemoglobin 11.5 - 15.5 g/dL 8.5 14.0 9.5 Hematocrit 36.0 - 46.0 % 26.9 44.6 30.3 MCV 80.0 - 100.0 fL 94.1 98.7 97.7 MCH 26.0 - 34.0 pG 29.7 31.0 30.6 MCHC 30.5 - 36.0 g/dL 31.6 31.4 31.4 RDW-CV 11.5 - 15.0 % 13.4 12.8 12.5 Platelet Count 150 - 400 k/uL 164 259 188 MPV 9.0 - 12.7 fL 9.5 10.2 10.2 Baso% % 0.8 Abs Neut (ANC) 1.45 - 7.50 k/uL 3.16 Abs Lymph 1.00 - 4.00 k/uL 1.29 Abs Florence <0.87 k/uL 0.41 Abs Eosin <0.46 k/uL 0.26 Abs Baso <0.11 k/uL 0.04 Diff Type Auto Diff Latest Ref Rng & Units 11/24/2020 11/24/2020 11/25/2021 CMP Sodium 136 - 144 mmol/L 138 Potassium 3.7 - 5.1 mmol/L 4.5 Chloride 97 - 105 mmol/L 100 CO2 22 - 30 mmol/L 28 Glucose 74 - 99 mg/dL 111 BUN 7 - 21 mg/dL 19 Creatinine 0.58 - 0.96 mg/dL 1.34 Creatinine (POCT) 0.7 - 1.4 mg/dL 1.30 1.20 EGFR-All Other Races . 39 EGFR- 47 Calcium 8.5 - 10.2 mg/dL 9.2 YES NO Smoking, vaping, nicotine, cannabis [] [...] meds infusion, etc) [] [x] What........... Reason:........... Upper extremity AV fistula (dialysis) or vessels injury or disease [] [x] Overhead activities [] [x] Cervical problems [] [x] []C3 []C4 []C5 []C6 []C7 []C8 []T1 []Conservative []Fusion []Discectomy []Other... Pt AGAINST blood transfusion? 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 Imani ASHLEY Main Depression Generalized OA H/O breast lump right Ca no Right UE - IV H/O hyperparathyroidism treated syrgicaly History of breast cancer HTN (hypertension) htn Obese PAST SURGICAL HISTORY Procedure Laterality Date BX BREAST NEEDLE CORE W/O IMAGING GUIDANCE SPX 10-30-07 right breast u/s guided mammotome core biopsy DELIVERY ONLY , low cervical ENDOVENOUS LASER, 1ST VEIN Right 02/09/16 GSV EVLT MASTECTOMY, PARTIAL 11-27-07 right partial mastectomy with lymphatic mapping and node dissection PAST SURGICAL HISTORY OF tonsils, appendix, , gallblader, parathyroid, , laser eye, neck lift, bunion surgery PAST SURGICAL HISTORY OF partial parathyroidectomy PAST SURGICAL HISTORY OF cataracts PAST SURGICAL HISTORY OF breast biopsy PAST SURGICAL HISTORY OF 2012 right renal artery aneurysm repair PHLEBECTOMY VEINS, 1 EXTREM. 10-20 STAB Right 03/17/2016 Right leg-Dr. Corral TOTAL ABDOMINAL HYSTERECT W/WO RMVL TUBE OVARY 1990 KERVIN-BSO Current Outpatient Medications Medication Sig Dispense Refill potassium chloride (K-TAB) 10 mEq tablet Take 10 mEq by mouth twice daily. amoxicillin (POLYMOX, AMOXIL) 500 mg capsule Take 4 capsules by mouth 1 hour before dental procedure 20 capsule 0 docusate sodium (COLACE) 100 mg capsule Take 1 capsule by mouth twice daily as needed for Constipation. 60 capsule 0 OTC NUTRITIONAL SUPPLEMENT Take 1 tablet by mouth once daily. Allergy medication triamterene-hydrochlorothiazide 37.5-25 mg per capsule Take 1 capsule by mouth once daily. zolpidem (AMBIEN) 5 mg tablet Take 1 tablet by mouth daily at bedtime. ALPRAZolam (XANAX) 0.25 mg tablet Take 1 tablet by mouth as needed. citalopram hydrobromide 10 mg tablet Take 10 mg by mouth once daily. L-LYSINE 500MG TABLET takes daily 0 OCUVITE TABLET takes one per day 0 No current facility-administered medications for this visit. ALLERGIES Allergen Reactions Sulfa (Sulfonamide * Anaphylaxis rash, trouble breathing Doxycycline Rash There is no height or weight on file to calculate BMI. Estimated body surface area is 1.97 meters squared as calculated from the following: Height as of 12/05/19: 160 cm (5' 3 ). Weight as of 11/24/20: 87.1 kg (192 lb 1.6 oz). There were no vitals taken for this visit. IMAGING (date/result): EMG/NCS (date/result): ROS: All negative except for: GENERAL: []weight loss []malaise []fevers HEENT: []frequent or significant headaches []changes in hearing []change in vision []nose bleeds []other nasal problems NECK: []lumps []goiter []pain and significant neck swelling RESPIRATORY: []cough []hemoptysis []wheezing []COPD []dyspnea []shortness of breath CARDIOVASCULAR: []chest pain []leg swelling []hypertension []CHF []palpitations GI: []nausea []vomiting []diarrhea MUSCULOSKELETAL: see HPI SKIN: [] skin lesions []rash []itching PSYCH: []sleep disturbance []mood disorder []recent psychosocial stressors HEMATOLOGY/LYMPHOLOGY: []prolonged bleeding []bruising easily []swollen nodes ENDOCRINE: []cold intolerance []heat intolerance []polyuria []polydipsia []goiter Physical Exam Awake, alert, and oriented x3. LUNGS: Lungs clear to auscultation, Good diaphragmatic excursion CARDIAC: Normal S1 and S2; no rubs, murmurs, or gallops, Rhythm: regular rate and rhythm, Rate: normal 2-POINT DISCRIMINATION RIGHT (radial) RIGHT (ulnar) RIGHT overall LEFT (radial) LEFT (ulnar) LEFT overall thumb 6 ? 6 index ?6 ? 6 long ?6 ? 6 ring ?6 ? 6 small 6 6 TINEL'S (symptoms referred to) RIGHT (digit) LEFT (digit) 1 2 3 4 5 - 1 2 3 4 5 - Carpal Tunnel [] [] [] [] [] [] [] [] [] [] [] [] Guyon's Canal [] [] [] [] [] [] [] [] [] [] [] [] Pronator [] [] [] [] [] [] [] [] [] [] [] [] Cubital Tunnel [] [] [] [] [] [] [] [] [] [] [] [] Midarm medial [] [] [] [] [] [] [] [] [] [] [] [] Infraclavicular [] [] [] [] [] [] [] [] [] [] [] [] Supraclavicular [] [] [] [] [] [] [] [] [] [] [] [] COMPRESSION (symptoms referred to) RIGHT (digit) LEFT (digit) 1 2 3 4 5 - 1 2 3 4 5 - Phalens [] [] [] [] [] [] [] [] [] [] [] [] Pronator [] [] [] [] [] [] [] [] [] [] [] [] Forced flexion [] [] [] [] [] [] [] [] [] [] [] [] Elbow Hyperflexion [] [] [] [] [] [] [] [] [] [] [] [] Infraclavicular [] [] [] [] [] [] [] [] [] [] [] [] Supraclavicular [] [] [] [] [] [] [] [] [] [] [] [] Pari [] [] [] [] [] [] [] [] [] [] [] [] LEGEND: TINEL'S and COMPRESSION tests are referred to symptoms localized to 1=thumb, 2=index, 3=middle, 4=ring, 5=small finger ? STRENGTH Strength in pounds RIGHT LEFT Painter Helper (Christiano) 40 44 Garcia pinch (thumb pad to lateral aspect of middle phalanx of index finger) 11 10 Tip pinch (thumb tip to index fingertip) 6 5 Palmar pinch (thumb pad to pads of index and middle fingers) 9 6 MRC Muscle Power Scale RIGHT LEFT 0 1 2 3 4 5 0 1 2 3 4 5 APB [] [] [] [] [] [] [] [] [] [] [] [] Intrinsics [] [] [] [] [] [] [] [] [] [] [] [] RIGHT LEFT positive negative positive negative APB atrophy [] [] [] [] Intrinsics atrophy [] [] [] [] Clawing [] [] [] [] RIGHT LEFT 0 1 2 3 4 5 6 7 8 9 10 0 1 2 3 4 5 6 7 8 9 10 Destinyandji score (thumb) [] [] [] [] [] [] [] [] [] [] [] [] [] [] [] [] [] [] [] [] [] [] THUMB degenerative RIGHT LEFT 1st CMC tenderness +[] -[] +[] -[] 1st CMC grind +[] -[] +[] -[] 1st Extensor Compartment tenderness +[] -[] +[] -[] Katerin's positive +[] -[] +[] -[] A1 Alicia Tenderness +[] -[] +[] -[] A1 Triggering +[] -[] +[] -[] Intersection tenderness +[] -[] +[] -[] STT tenderness +[] -[] +[] -[] The four stages of the Eaton-Littler classification Right [] Left [] Stage Description [] I Subtle carpometacarpal joint space widening [] II Slight carpometacarpal joint space narrowing, sclerosis, and cystic changes with osteophytes or loose bodies < 2 mm [] III Advanced carpometacarpal joint space narrowing, sclerosis, and cystic changes with osteophytes or loose bodies > 2 mm [] IV Arthritic changes in the carpometacarpal joint as in Stage III with scaphotrapezial arthritis FINGERS DEGENERATIVE []RIGHT []LEFT []Thumb []IF []MF []RF []SF DIPJ tenderness +[] -[] DIPJ deformity +[] -[] PIPJ tenderness +[] -[] PIPJ deformity +[] -[] MCPJ tenderness +[] -[] MCPJ deformity +[] -[] CMCJ tenderness +[] -[] CMCJ deformity +[] -[] A1 Alicia Tenderness +[] -[] A1 Triggering +[] -[] Trigger finger Green Classification []RIGHT []LEFT []Thumb []IF []MF []RF []SF []Grade I Palm pain and tenderness at A-1 alicia []Grade II Catching of digit []Grade III Locking of digit, passively correctable []Grade IV Fixed, locked digit WRIST RIGHT LEFT Distal Radius +[] -[] +[] -[] Distal Ulna +[] -[] +[] -[] Anatomical Snuff Box tenderness +[] -[] +[] -[] Scaphoid tubercle tenderness +[] -[] +[] -[] Scaphoid waist tenderness +[] -[] +[] -[] Scaphoid fossa tenderness +[] -[] +[] -[] Scapho-capitate joint tenderness +[] -[] +[] -[] S-L ligament tenderness +[] -[] +[] -[] Coffman's test +[] -[] +[] -[] S-L shear test Unst[] []Stable Unst[] []Stable Lunate tenderness +[] -[] +[] -[] Lunate fossa tenderness +[] -[] +[] -[] Luno-capitate tenderness +[] -[] +[] -[] L-T ligament tenderness +[] -[] +[] -[] L-T shear test Unst[] []Stable Unst[] []Stable Triquetrum tenderness +[] -[] +[] -[] Ulnar Fovea tenderness +[] -[] +[] -[] Ulnar Snuffbox tenderness +[] -[] +[] -[] ECU tenderness +[] -[] +[] -[] Pain with forced ulnar deviation +[] -[] +[] -[] DRUJ tenderness +[] -[] +[] -[] DRUJ Supination stability Unst[] []Stable Unst[] []Stable DRUJ Pronation stability Unst[] []Stable Unst[] []Stable Pisiform tenderness +[] -[] +[] -[] P-T grind test tenderness +[] -[] +[] -[] Hamate hook tenderness +[] -[] +[] -[] STT tenderness +[] -[] +[] -[] Capitate tenderness +[] -[] +[] -[] Hamate tenderness +[] -[] +[] -[] FCR tenderness +[] -[] +[] -[] FCU tenderness +[] -[] +[] -[] FDPs FDSs tenderness +[] -[] +[] -[] ECRL/ECRB tenderness +[] -[] +[] -[] EDCs tenderness +[] -[] +[] -[] Active Range of Motion table ([x] Ticked box means full active ROM) RIGHT [] LEFT [] Thumb Index Long Ring Small DIPJ [] [] [] [] [] PIPJ [] [] [] [] [] MCPJ [] [] [] [] [] CMCJ [] [] [] [] [] RIGHT [] LEFT [] Radial Ulnar Flexion Extension Wrist [] [] [] [] RIGHT [] LEFT [] Pronation Supination DRUJ [] [] Subcutaneous Mass location and characteristics: []Right []Left []Thumb []Index []Middle []Ring []Small [] P3 []DIPJ []P2 []PIPJ []P1 []MCPJ []Metacarpal []CMCJ []wrist []DRUJ []Forearm []Elbow []Arm []Shoulder []Infra/Supraclavicular []Volar []Dorsal []Radial []Ulnar []Medial []Lateral []Mobile Fixed to([]skin []tendon []sheath/capsule []joint []bone []nerve []vessel) []none []nail plate grooving []ulceration []skin discoloration/thinning []pulsation/thrill []positive Tinel's/compression test (to.................) Size...........mm Patient Entered Questionnaires 03/18/2024 PRWE SCORE Pain Score 39 Function Score Incomplete Total Score Incomplete 03/18/2024 DASH SCORE Total Score 25.83 PROMIS Score Percentiles 02/19/2021 04/13/2022 03/12/2024 PROMIS Global Health Scale Physical Health Percentile 41 78 53 Mental Health Percentile 73 82 82 Percentiles provide an indication of how the patient's score ranks in relation to the general population. Higher percentile rankings indicate better function/quality of life. 50th percentile is the average of the general population and indicates half of respondents had a worse score. > 31st percentile is within normal limits or better * < 31st percentile is at least SD worse than population, which may be clinically relevant < 16th percentile is at least 1 SD worse than population and warrants attention ................................. ...... Assessment:..... bilateral first CMC joint osteoarthritis ...... Plan:....... []Pictures []Conservative []Medications [x]Steroid injection []Splint []Cast []OT []PT []CAST ROOM []EMG/ NCS []neuromuscular US []radiology []xrays []US []CT []MRI []Surgery []consult neurology []consult rheumatology []consult spine center []consult pain management []consult orthopedics Follow-up: [x]with CAFETERIA DIRECTOR [] with []after tests completed [x]PRN []1 week []2 weeks []3 weeks []4 weeks []6 weeks []2 months []3 months []6 months []9 months []1 year otherwise []weeks []months The patient was informed about possible options for treatment: Conservative vs. Operative, possible pros and cons with complications of both were discussed. The patient elects to have []conservative treatment []surgery All anesthestic options discussed with patient: wide awake local anesthesia, peripheral nerve block with possible sedation, peripheral nerve block with pain catheter and possible sedation, general anesthesia. Patient voiced understanding and has chosen []local []block ([]single shot []catheter) []WALANT []MAC []general anesthesia No guarantee that symptoms like pain, tingling and numbness will improve after surgery, the patient understands this. The risk, benefits and alternatives of injection and no injection therapy were discussed. The patient consented for an injection. The injection site was prepped with an alcohol swab. The INJECTION SITE RIGHT LEFT CARPAL TUNNEL [] [] CMCJ 1[x] 2[] 3[] 4[] 5[] 1[x] 2[] 3[] 4[] 5[] TRIGGER FINGER 1[] 2[] 3[] 4[] 5[] 1[] 2[] 3[] 4[] 5[] EXTENSOR COMP 1[] 2[] 3[] 4[] 5[] 6[] 1[] 2[] 3[] 4[] 5[] 6[] STT [] [] RADIOCARPAL [] [] MIDCARPAL [] [] DRUJ [] [] MCPJ 1[] 2[] 3[] 4[] 5[] 1[] 2[] 3[] 4[] 5[] PIPJ 1[] 2[] 3[] 4[] 5[] 1[] 2[] 3[] 4[] 5[] DIPJ 1[] 2[] 3[] 4[] 5[] 1[] 2[] 3[] 4[] 5[] was/were injected with a 27 gauge needle with a total of []10mg [x]20mg []30mg []40mg []50mg Kenalog and a total of []0.5 ml []1ml [x]1.5ml []2ml []5ml []10ml []15ml []20ml of 1% Lidocaine plain. The patient was assessed for application of a splint. The []right []left splint ([]finger []CT []thumb spica []cool comfort) was/were applied and the patient was informed how to use it. The patient was agreeable with the plan. Work restrictions: []none []one handed duty []no lifting, pulling, pushing, squeezing more than ..........pounds []until FU [] for ..........weeks The patient is seen and examined by Chung Sears PA-C and the following reflects his/her service. Scribed by Cata Wagner RN I agree with the Chief Complaint, ROS, and Past Histories independently gathered by the clinical instructional support technician and the remaining scribed note accurately describes my personal service to the patient. 30 Minutes total visit spent face to face with patient. Greater than 50% of the time was spent for counseling and coordination of care, discussing treatment options and recommendations. Delfin Sears PA-C March 19, 2024 2:51 PM This note was generated with voice recognition software and may contain errors, including spelling, grammar, syntax and misrecognition of what was dictated, that are not fully corrected. documented in this encounter [facility] 03-15-2024 History of Present illness Narrative Images from the original note were not included. Gilda Sorto is a 73 y.o. female presents with chief complaint of right leg pain HPI: HPI History of Present Illness The patient presents for evaluation of leg pain. Pt was seen in office 02/27 for an ER follow up after a fall resulting in contusion of right lower leg & traumatic hematoma of right lower leg. CT was ordered and is scheduled for next week. We did call CT today during appointment to get that moved up which she is now scheduled to have done tomorrow at 1:45 PM. She reports persistent bruising on her right leg, which has significantly improved but is not entirely gone. Reports occasionally darkens and feels hard and numb to touch to the proximal right tibia. The bruising sometimes appears to be bleeding again. She experiences sharp, shooting pain that radiates down the side of her leg, leading her to suspect a nerve issue. The pain is more manageable in the morning but intensifies in the evening after a day of standing. She also notes fluid retention in her rt proximal leg, which is slightly warm to touch. She has been taking pain medication, with a total of four doses so far, typically after a day of standing, otherwise is using tylenol. She finds it difficult to get comfortable in bed. She experienced fever, chills, and body aches after receiving her COVID-19 vaccine, which is now gone and she has not had that again. Denies any calf pain, calf edema or erythema, sob. I have reviewed and reconciled the history and medication list with the patient today. HISTORIES: PAST MEDICAL HISTORY: Past Medical History: Diagnosis Date Anxiety Appendicitis Arthritis Breast cancer (CMS/HCC) Cataract Chicken pox Essential hypertension, benign. Hyperplasia of renal artery Family history of cancer Hallux malleus Hyperplasia of renal artery (CMS/HCC) Hypertension (CMS/HCC) Measles Primary hyperparathyroidism (CMS/HCC) S/P partial mastectomy, right 12/02/2017 Added automatically from request for surgery [id number] Tear of lateral meniscus of knee 01/06/2018 Added automatically from request for surgery [id number] Tonsillitis SURGICAL HISTORY: Past Surgical History: Procedure Laterality Date ADENOIDECTOMY APPENDECTOMY BREAST SURGERY 2008 Breast CA SECTION, LOW TRANSVERSE 1977 COLONOSCOPY 2008 (normal, small hemorrhoids) COLONOSCOPY 11/05/2020 CT ANGIOGRAM ABDOMEN PELVIS 11/22/2019 CT ANGIOGRAM ABDOMEN PELVIS 11/22/2019 CT ANGIOGRAM ABDOMEN PELVIS 11/25/2021 CT ANGIOGRAM ABDOMEN PELVIS 11/25/2021 FRACTURE SURGERY JOINT REPLACEMENT 1921 OTHER SURGICAL HISTORY 2010 S/P correction with deep K Wire (Lt 2nd hammertoe) OTHER SURGICAL HISTORY S/P R Renal artery aneursym repair PARATHYROIDECTOMY 2000 ND CORRECTION HAMMERTOE 2010 Partial Nail Avulsion SHOULDER SURGERY 01/2022 SQUAMOUS CELL CARCINOMA EXCISION [address] Peña TONSILLECTOMY TOTAL ABDOMINAL HYSTERECTOMY W/ BILATERAL SALPINGOOPHORECTOMY TOTAL KNEE ARTHROPLASTY Left 11/2019 Dr. Dean - [facility] SOCIAL HISTORY: Social History Tobacco Use Smoking status: Never Smokeless tobacco: Never Vaping Use Vaping status: Never Used Substance Use Topics Alcohol use: Not Currently Alcohol/week: 1.0 standard drink of alcohol Types: 1 Glasses of wine per week Comment: caffeine: 1-2 cups per day of coffee Drug use: Never Depression: Not at risk (04/26/2023) PHQ-2 PHQ-2 Score: 0 FAMILY HISTORY: Family History Problem Relation Name Age of Onset Hypertension Mother Kierra Heart disease Father Filippo No Known Problems Sister No Known Problems Paternal Grandfather MEDICATIONS: Current Outpatient Medications Medication Instructions citalopram (CELEXA) 10 mg, Oral, Every 24 hours eye vitamin supplement (Ocuvite Eye Health Formula) capsule 1 capsule, Daily fluticasone (Flonase) 50 MCG/ACT nasal spray USE 2 SPRAYS IN EACH NOSTRIL ONCE DAILY NEEDED levocetirizine (XYZAL) 5 mg, Every 24 hours LORazepam (ATIVAN) 0.5 mg, Oral, Every 8 hours PRN MISC NATURAL PRODUCTS PO 1 each, As needed Multiple Vitamin (Multivitamin Adult) tablet 1 tablet, Daily omeprazole (PRILOSEC) 20 mg, Oral, Daily before breakfast Probiotic Product (ALIGN PO) 1 capsule, Daily triamterene-hydroCHLOROthiazide (Dyazide) 37.5-25 MG capsule 1 capsule, Oral, Every morning zolpidem (AMBIEN) 5 mg, Oral, Nightly PRN ALLERGIES: Allergies Allergen Reactions Claus Inhibitors Angioedema Doxycycline Rash Nitrofurantoin GI intolerance Sulfa Antibiotics Unknown Other Reaction(s): Difficulty Breathing PHYSICAL EXAM: Visit Vitals BP 126/78 Pulse 81 Ht 5' 3 Wt 202 lb SpO2 96% BMI 35.78 kg/m Smoking Status Never BSA 2.02 m BP Readings from Last 3 Encounters: 03/15/24 126/78 02/28/24 118/80 12/28/23 122/78 Wt Readings from Last 3 Encounters: 03/15/24 202 lb 12/28/23 193 lb 09/26/23 195 lb Physical Exam General Examination: alert, oriented, normal affect, well-appearing, in no acute distress, well developed, well nourished. MSK: full arom right knee with tugging sensation on full flexion. Full arom rt ankle and strength 5/5. Ecchymosis resolved to right lower anterior leg with exception of some mild bruising persistent at proximal tibia over tibial tuberosity with most pain noted in this area, no pain along distal tibia or fibula. Neuro: light touch RLE intact but decreased over proximal tibia compared to distal and femur Vasc: cap refill < 2 seconds, DP and PT 2+ left Psych: alert, oriented, cognitive function intact, cooperative with exam. Results ASSESSMENT AND PLAN: Assessment & Plan 1. Right leg pain (Primary) See below 2. Contusion of right lower leg, subsequent encounter The leg pain might be due to a hematoma exerting pressure on a nerve, causing pain and tingling sensations. The bruising and edema appears to be improving externally, but mild swelling persists. A CT scan has been scheduled for tomorrow at 1:45 PM to provide a clearer picture of the situation. A referral to an internal communications specialist has been made. She reports no pain in her back or groin, and no recent fevers, chills, or body aches except for symptoms following a recent Covid shot. She is to use tylenol, elevate leg, warm compresses 20 min on/off. Return for immediate re-eval if any new/worse sx. Patient and voiced understanding and agreement with the plan. All questions/concerns addressed. documented in this encounter [facility] 02-28-2024 History of Present illness Narrative Images from the original note were not included. Gilda Sorto is a 73 y.o. female presents with chief complaint of ER Follow-up HPI: HPI History of Present Illness The patient presents for evaluation of a fall. She is accompanied by her . Patient was seen at [facility] [place] [place] ER on 02/21/2024 after falling inside her home. She has complaints of rt leg pain, left wrist pain and facial pain, reports the left wrist pain and facial pain is entirely gone but she continues with severe right lower leg pain anteriorly over her proximal tib/fib. Pain is worse with weight bearing and certain positional movements. She is taking Advil prn and trying to keep elevated when she can. She reports her pain is not controlled with the advil. She has taken percocet in the past after a surgery and did well with it, she did hallucinate once but she lives with her who will keep a close eye on her. She experienced a fall, resulting in a scrape on her cheek and injuries to her knee and wrist. She recalls falling on a ceramic floor, hitting her nose and face, and was initially concerned about a broken nose but reports she has no pain whatsoever to her face, denies headache, vision changes, nausea, vomiting. However, there was no bleeding from her nose. Despite the absence of acute findings on her x-rays, she continues to experience significant pain of the proximal lower rt leg. The bruising and swelling have improved, but she can still feel some fluid when pressure is applied over the proximal rt lower leg. Her ankle swelled significantly recently, and she reports tenderness at the site of the bruising but denies any ankle pain, she denies any posterior calf pain whatsoever. She also notes slight tenderness in her kneecap. Her wrist, which had been previously broken and has arthritis, this pain is gone. She takes Advil twice a day for pain management but finds it difficult to get comfortable at night. 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 She is concerned about the lack of improvement in her condition. She received a flu shot yesterday and is not currently taking any blood thinners. She reports no fevers, chills, or body aches. She has been applying ice to her injuries and wearing compression hose, which initially helped with the swelling but is now difficult to wear due to the pain. She spent 2.5 hours on her feet this morning. She admits some tingling over the proximal tib/fib that is intermittent and does not extend down to her ankle or cause her entire leg to become numb. I have reviewed and reconciled the history and medication list with the patient today. No data to display HISTORIES: PAST MEDICAL HISTORY: Past Medical History: Diagnosis Date Anxiety Appendicitis Arthritis Breast cancer (CMS/HCC) Cataract Chicken pox Essential hypertension, benign. Hyperplasia of renal artery Family history of cancer Hallux malleus Hyperplasia of renal artery (CMS/HCC) Hypertension (CMS/HCC) Measles Primary hyperparathyroidism (CMS/HCC) S/P partial mastectomy, right 12/02/2017 Added automatically from request for surgery [id number] Tear of lateral meniscus of knee 01/06/2018 Added automatically from request for surgery [id number] Tonsillitis SURGICAL HISTORY: Past Surgical History: Procedure Laterality Date ADENOIDECTOMY APPENDECTOMY BREAST SURGERY 2008 Breast CA SECTION, LOW TRANSVERSE 1977 COLONOSCOPY 2008 (normal, small hemorrhoids) COLONOSCOPY 11/05/2020 CT ANGIOGRAM ABDOMEN PELVIS 11/22/2019 CT ANGIOGRAM ABDOMEN PELVIS 11/22/2019 CT ANGIOGRAM ABDOMEN PELVIS 11/25/2021 CT ANGIOGRAM ABDOMEN PELVIS 11/25/2021 FRACTURE SURGERY JOINT REPLACEMENT 1921 OTHER SURGICAL HISTORY 2009 S/P correction with deep K Wire (Lt 2nd hammertoe) OTHER SURGICAL HISTORY S/P R Renal artery aneursym repair PARATHYROIDECTOMY 2000 ND CORRECTION HAMMERTOE 2009 Partial Nail Avulsion SHOULDER SURGERY 01/2022 SQUAMOUS CELL CARCINOMA EXCISION [address] Peña TONSILLECTOMY TOTAL ABDOMINAL HYSTERECTOMY W/ BILATERAL SALPINGOOPHORECTOMY TOTAL KNEE ARTHROPLASTY Left 11/[address] [facility] SOCIAL HISTORY: Social History Tobacco Use Smoking status: Never Smokeless tobacco: Never Vaping Use Vaping status: Never Used Substance Use Topics Alcohol use: Not Currently Alcohol/week: 1.0 standard drink of alcohol Types: 1 Glasses of wine per week Comment: caffeine: 1-2 cups per day of coffee Drug use: Never Depression: Not at risk (04/26/2023) PHQ-2 PHQ-2 Score: 0 FAMILY HISTORY: Family History Problem Relation Name Age of Onset Hypertension Mother Kierra Heart disease Father Filippo No Known Problems Sister No Known Problems Paternal Grandfather MEDICATIONS: Current Outpatient Medications Medication Instructions citalopram (CELEXA) 10 mg, Oral, Every 24 [...] (PRILOSEC) 20 mg, Oral, Daily before breakfast Probiotic Product (ALIGN PO) 1 capsule, Oral, Daily triamterene-hydroCHLOROthiazide (Dyazide) 37.5-25 MG capsule 1 capsule, Oral, Daily zolpidem (AMBIEN) 5 mg, Oral, Nightly PRN ALLERGIES: Allergies Allergen Reactions Claus Inhibitors Angioedema Doxycycline Rash Nitrofurantoin GI intolerance Sulfa Antibiotics Unknown Other Reaction(s): Difficulty Breathing PHYSICAL EXAM: Visit Vitals Ht 5' 3 BMI 34.19 kg/m Smoking Status Never BSA 1.97 m BP Readings from Last 3 Encounters: 12/28/23 122/78 09/26/23 128/78 06/30/23 128/80 Wt Readings from Last 3 Encounters: 12/28/23 193 lb 09/26/23 195 lb 06/30/23 198 lb Physical Exam General Examination: alert, oriented, normal affect, well-appearing, in no acute distress, well developed, well nourished. Head: normocephalic, atraumatic, no ecchymosis, edema or erythema to face/head Eyes: PERRLA, EOMI Heart: regular rate and rhythm, S1, S2 normal Lungs: clear to auscultation bilaterally. No wheezes, rales, rhonchi. MSK: full arom right knee and ankle and strength 5/5. Significant ecchymosis to right lower anterior leg from proximal tib fib to ankle with associated ttp along tibia from proximal tibia to distal with worst area being proximal tibia with associated generalized edema but localized over proximal tibia Neuro: light touch RLE intact Vasc: cap refill < 2 seconds, DP and PT 2+ left Extremities: no edema, no cyanosis Psych: alert, oriented, cognitive function intact, cooperative with exam. Results Imaging Knee and wrist X-ray showed no acute findings. ASSESSMENT AND PLAN: Assessment & Plan 1. Contusion of right lower leg, initial encounter (Primary) She has significant pain and tenderness in her leg, with a minor hematoma that may take several weeks to resolve. An x-ray of her tibia and fibula will be conducted today. She is advised to elevate her leg and apply ice for 20 minutes at a time, several times a day. A prescription for Percocet will be sent to [facility] at [facility] for use as needed, OARRS reviewed, she is only to take exactly as prescribed and she understands this is an opioid and only to take as directed. She has taken before, advised to call for any side effects. She is encouraged to avoid prolonged standing, although complete non-weightbearing is not necessary. If there is no improvement within a week, a CT scan of her lower leg will be considered to rule out an infected hematoma. She is to call if not better in 1 week and will order CT right tib/fib. - oxyCODONE-acetaminophen (Percocet) 5-325 MG tablet; Take 1 tablet by mouth every 6 (six) hours if needed for moderate pain or severe pain for up to 7 days Dispense: 28 tablet; Refill: 0 - XR tibia fibula 2 views right 2. Pain in right lower leg See above. - XR tibia fibula 2 views right 3. Traumatic hematoma of right lower leg, initial encounter See above. documented in this encounter [facility] 06-30-2023 History of Present illness Narrative Gilda [...] 12/02/2017 Added automatically from request for surgery [id number] Tear of lateral meniscus of knee 01/06/2018 Added automatically from request for surgery [id number] Tonsillitis REVIEW OF SYMPTOMS: Review of Systems [...] follow-ups on file. documented in this encounter [facility] 04-12-2023 Note HNO ID: [id number] Author: Kayla Mata MD Service: ? Author Type: Physician Type: Progress Notes Filed: 04/12/2023 4:51 PM Note Text: PLASTIC SURGERY DEPARTMENT [facility] Hand Surgery Note [x] New [...] What........... Reason:........... Upp (more content not included)... [facility] 04-16-2022 History of Present illness Narrative [...] which included preparing to see the patient, [id number] patient care, completing clinical documentation, performing a medically appropriate examination, counseling and educating the patient/family/caregiver, ordering medications, tests, or procedures, communicating with other HCPs (not separately reported), independently interpreting results (not separately reported), communicating results to the patient/family/caregiver, and care coordination (not separately reported). Sharon Rg APRN.AMARI documented in this encounter [facility] 04-16-2022 Nurse Note Additional intake questions: Has the patient had fever, nausea, vomiting, diarrhea, constipation, fatigue for > 1 week? No Does the patient have a decreased appetite? No Does patient want to see a Nutritionist? No (yes to any of above refer patient to schedulers for dietitian appointment) ) Does patient have any new or increased numbness or tingling of extremities? No Is patient interested in fertility information? No Does patient need any prescription refills? No Does patient have an advanced directive in place? Yes, copies are in [employer] documented in this encounter [facility] 04-16-2022 Miscellaneous Notes April 16, 2022 PID: [id number] Gilda Sorto [address] [place] [address] Dear Ms. Sorto, We are pleased to [...] report will be kept on file at [facility] as part of your permanent medical record and are available for your continuing care. Thank you for allowing us to help in meeting your health care needs. Sincerely, Dr. Perez Interpreting Radiologist [facility] (Normal over 40) documented in this encounter [facility] 04-16-2022 History of Present illness [...] 2022 11:39 AM documented in this encounter [facility] 11-25-2021 History of Present illness Narrative [...] TIME: 12:06 PM documented in this encounter [facility] 09-21-2021 Miscellaneous Notes Mrs Sorto called and she would like to schedule her yearly follow up appointment with DR. Ramirez [place] and cell number: [phone] Kind Regards, Nima Wilkinson documented in this encounter [facility] 04-29-2021 Note HISTORY: Bone densit y [...] signed by Gonsalo Alvarez on 04/29/2021 12[address] [facility] 04-01-2020 History of Present illness Narrative [...] 2020 1:04 PM documented in this encounter [facility] 12-20-2019 History of Present illness Narrative [...] 2019 12:45 PM documented in this encounter [facility] Evaluation note Diagnosis Renal artery aneurysm (HCC)- Primary Aneurysm of renal artery Abdominal aortic aneurysm without rupture (HCC) Abdominal aneurysm without mention of rupture [facility] Diagnosis Encounter for screening mammogram for breast cancer- Primary [facility] Diagnosis Renal artery aneurysm (HCC) Aneurysm of renal artery [facility] Diagnosis Encounter for screening mammogram for breast cancer- Primary Stage 1 breast cancer, ER-, left (HCC) [facility] Diagnosis Encounter for screening mammogram for breast cancer [facility] Diagnosis S/P TKR (total knee replacement), left [facility] Diagnosis Primary osteoarthritis of left knee Primary localized osteoarthrosis, lower leg [facility] Diagnosis S/P total knee arthroplasty, left [facility] Diagnosis Viral upper respiratory tract infection- Primary Acute upper respiratory infections of unspecified site Cough, unspecified type Insomnia, unspecified type Morbid obesity (CMS/HCC) Morbid obesity History of breast cancer Personal history of malignant neoplasm of breast [facility] Preop examination- Primary Preoperative examination, unspecified Primary osteoarthritis of left knee Primary localized osteoarthrosis, lower leg Renal artery aneurysm (HCC) Aneurysm of renal artery Essential hypertension Unspecified essential hypertension History of breast cancer Personal history of malignant neoplasm of breast Pain Generalized pain [facility] noteNo assessment information availableSelect [facility] Work Phone: Evaluation note* Diagnosis Contusion of right lower leg, initial encounter- Primary Pain in right lower leg Traumatic hematoma of right lower leg, initial encounter documented [facility]* Diagnosis Right leg pain- Primary Pain in soft tissues of limb Contusion of right lower leg, subsequent encounter documented in this encounter [facility]* Diagnosis Preop examination- Primary Preoperative examination, unspecified Primary osteoarthritis of left knee Primary localized osteoarthrosis, lower leg Renal artery aneurysm (HCC) Aneurysm of renal artery Essential hypertension Unspecified essential hypertension History of breast cancer Personal history of malignant neoplasm of breast Pain in both hands- Primary [facility] Diagnostic Procedure Only (Routine) - Pending Review Specialty Diagnoses / Procedures Referred By Elisha tang Referred To Contact [facility] Diagnoses Encounter for screening mammogram for breast cancer Procedures JAKE SCREENING SCREENING MAMMOGRAPHY BI 2-VIEW BREAST INC Sharon Gallagher APRN.CNP [id number] [address] [facility] [address] [place] [id number] Referral ID Status Reason Start Date Expiration Date Visits Requested Visits Authorized [id number] Pending Review Auto-Generat ed Referral 11/20/2021 12/20/2022 1 1 [facility] Diagnostic Procedure Only (Routine) - Pending Review Specialty Diagnoses / Procedures Referred By Elisha tang Referred To Contact [facility] Diagnoses Encounter for screening mammogram for breast cancer Procedures JAKE SCREENING SCREENING MAMMOGRAPHY BI 2-VIEW BREAST INC Sharon Gallagher APRN.CNP [id number] [address] [facility] [address] [place] [address] Referral ID Status Reason Start Date Expiration Date Visits Requested Visits Authorized [id number] Pending Review Auto-Generat ed Referral 04/16/2023 05/16/2023 1 [facility] Diagnostic Procedure Only (Routine) - Closed Specialty Diagnoses / Procedures Referred By Contac t Referred To Contact XR IMAGING Diagnoses Pain Procedures XR WRIST GENERAL 3V PA/LAT/OBL BILATERAL RADEX WRIST COMPLETE MINIMUM 3 VIEWS Kayla Mata MD [address] [place] [address] [place] [address] Referral ID Status Reason Start Date Expiration Date V isits Requested Visits Authorized [id number] Closed Auto-Generate d Referral 03/21/2023 04/19/2024 1 1 * Diagnostic Procedure Only (Routine) - Closed Specialty Diagnoses / Procedures Referred By Contac t Referred To Contact XR IMAGING Diagnoses Pain Procedures XR HAND GENERAL 3V PA/LAT/OBL BILATERAL RADEX HAND MINIMUM 3 VIEWS Kayla Mata MD [address] [place] [address] [place] [address] Referral ID Status Reason Start Date Expiration Date V isits Requested Visits Authorized [id number] Closed Auto-Generate d Referral 03/21/2023 04/19/2024 1 1 [facility] Summary Purpose Family History No Family History Records Found Relationship Condition Age at Onset Recorded Date/T devon father Unknown Heart disease Unknown Advance Directives No Advanced Directives Records FoundDocuments on File Type Date Recorded Patient Animal Care Provider Expl anation Advance Directive(s) Advance Directive(s) 12/05/2019 6:09 AM Advance Directive(s) 04/20/2018 10:36 AM Advance Directive(s) 04/12/2018 2:54 PM Advance Directive(s) 09/18/2012 9:11 PM Documents on File Type Date Recorded Patient Animal Care Provider Expl anation Advance Directive(s) Advance Directive(s) 12/05/2019 6:09 AM Advance Directive(s) 04/20/2018 10:36 AM Advance Directive(s) 04/12/2018 2:54 PM Advance Directive(s) 09/18/2012 9:11 PM Documents on File Type Date Recorded Patient Animal Care Provider Expl anation Advance Directive(s) 04/12/2018 2:54 PM Advance Directive(s) 09/18/2012 9:11 PM Documents on File Type Date Recorded Patient Animal Care Provider Expl anation Advance Directive(s) 04/12/2018 2:54 PM Advance Directive(s) 09/18/2012 9:11 PM Advance Directive Response Recorded Date/ Time Advance Directives No January 01, 2018 12:08pm Hospital Course Note HNO ID: [id number] Author: Ez Dean Service: Orthopaedic Surgery Author [...] (more content not included)... Note HNO ID: [id number] Author: Melissa Mccarthy Service: ? Author Type: Nurse Educational Manager Type: Anesthesia Procedure Notes Filed: 12/05/2019 [...] (more content not included)... Note HNO ID: [id number] Author: Melissa Mccarthy Service: ? Author Type: Nurse Educational Manager Type: Anesthesia Procedure Notes Filed: 12/05/2019 7:45 AM Note Text: ANESTHESIOLOGY PROCEDURE NOTE Spinal Block General Information Procedure Start Time/Medication Administration: 12/05/2019 7:39 AM Patient location during procedure: ORTimeout Performed Pre-procedure: timeout performed Consent Obtained: Yes (via Surgical Consent) Patient identity confirmed: arm band Reason for Block: primary surgical anesthetic Staffing FINGERPRINT EXPERT: Jailene Mccarthy Preparation Sterility Preparation: hand hygiene [...] not included)... Procedure Findings Note HNO ID: [id number] Author: Melissa Mccarthy Service: ? Author Type: Nurse Educational Manager Type: Anesthesia Procedure Notes Filed: 12/05/2019 [...] (more content not included)... Note HNO ID: [id number] Author: Melissa Mccarthy Service: ? Author Type: Nurse Educational Manager Type: Anesthesia Procedure Notes Filed: 12/05/2019 7:45 AM Note Text: ANESTHESIOLOGY PROCEDURE NOTE Spinal Block General Information Procedure Start Time/Medication Administration: 12/05/2019 7:39 AM Patient location during procedure: ORTimeout Performed Pre-procedure: timeout performed Consent Obtained: Yes (via Surgical Consent) Patient identity confirmed: arm band Reason for Block: primary surgical anesthetic Staffing FINGERPRINT EXPERT: Jailene Mccarthy Preparation Sterility Preparation: hand hygiene [...] CNTRST MTRL W/WO CNTRST Paco Haddad MD [address] [place] [address] Ct [facility] Referral ID Status Reason Start Date Expiration Date Visits Requested Visits Authorized [id number] Authorized Auto-Generat ed Referral 09/23/2021 10/23/2022 1 1 Chief Complaint and Reason for Visit Chief Complaint Fall, knee injury Additional Source Comments INFORMATION SOURCE (unrecogn ized section and content) DATE CREATED AUTHOR 12/08/2019 [facility] DATE CREATED AUTHOR AUTHOR'S ORGANIZ ATION 10/22/2021 [facility] Specialist DATE CREATED AUTHOR AUTHOR'S ORGANIZ ATION 05/08/2022 [facility] em DATE CREATED AUTHOR AUTHOR'S ORGANIZ ATION 03/07/2024 [facility] DATE CREATED AUTHOR AUTHOR'S ORGANIZ ATION 03/21/2024 [facility] EPIC DATE CREATED AUTHOR AUTHOR'S ORGANIZ ATION 03/25/2024 [facility] Source Comments (unrecognize d section and content) In the event this informatio n is protected by the Federal Confidentiality of Alcohol and Drug Abuse Patient Records regulations: The Federal rules restrict any use of the information to criminally investigate or prosecute any alcohol or drug abuse patient.[facility] the event this information is protected by the Federal Confidentiality of Alcohol and Drug Abuse Patient Records regulations: The Federal rules restrict any use of the information to criminally investigate or prosecute any alcohol or drug abuse patient.[facility] Hospital[facility] the event this information is protected by the Federal Confidentiality of Alcohol and Drug Abuse Patient Records regulations: The Federal rules restrict any use of the information to criminally investigate or prosecute any alcohol or drug abuse patient.[facility] Hospital[facility] the event this information is protected by the Federal Confidentiality of Alcohol and Drug Abuse Patient Records regulations: The Federal rules restrict any use of the information to criminally investigate or prosecute any alcohol or drug abuse patient.[facility] HospitalIn the event this information is protected by the Federal Confidentiality of Alcohol and Drug Abuse Patient Records regulations: The Federal rules restrict any use of the information to criminally investigate or prosecute any alcohol or drug abuse patient.[facility] HospitalIn the event this information is protected by the Federal Confidentiality of Alcohol and Drug Abuse Patient Records regulations: The Federal rules restrict any use of the information to criminally investigate or prosecute any alcohol or drug abuse patient.[facility] HospitalIn the event this information is protected by the Federal Confidentiality of Alcohol and Drug Abuse Patient Records regulations: The Federal rules restrict any use of the information to criminally investigate or prosecute any alcohol or drug abuse patient.[facility] HospitalIn the event this information is protected by the Federal Confidentiality of Alcohol and Drug Abuse Patient Records regulations: The Federal rules restrict any use of the information to criminally investigate or prosecute any alcohol or drug abuse patient.[facility] HospitalIn the event this information is protected by the Federal Confidentiality of Alcohol and Drug Abuse Patient Records regulations: The Federal rules restrict any use of the information to criminally investigate or prosecute any alcohol or drug abuse patient.[facility] HospitalIn the event this information is protected by the Federal Confidentiality of Alcohol and Drug Abuse Patient Records regulations: The Federal rules restrict any use of the information to criminally investigate or prosecute any alcohol or drug abuse patient.[facility] HospitalIn the event this information is protected by the Federal Confidentiality of Alcohol and Drug Abuse Patient Records regulations: The Federal rules restrict any use of the information to criminally investigate or prosecute any alcohol or drug abuse patient.[facility] HospitalIn the event this information is protected by the Federal Confidentiality of Alcohol and Drug Abuse Patient Records regulations: The Federal rules restrict any use of the information to criminally investigate or prosecute any alcohol or drug abuse patient.[facility] Reason for Visit (unrecogniz ed section and content) Reason Comments Appointment Reason Comments Radiology CT Specialty Diagnoses / Procedures Referred By Elisha t Referred To Contact CT IMAGING Diagnoses Renal artery aneurysm (HCC) Procedures CTA ABD/PEL WO/W IVCON CT ANGIO ABD&PLVIS CNTRST MTRL W/WO CNTRST Paco Haddad MD [address] [place] [address] Ct Imaging Referral ID Status Reason Start Date Expiration Date V isits Requested Visits Authorized [id number] Closed Auto-Generate d Referral 09/23/2021 10/23/2022 1 1 Reason Comments Established Patient Reason Comments Radiology Mammogram Specialty Diagnoses / Procedures Referred By Elisha t Referred To Contact [facility] Diagnoses Encounter for screening mammogram for breast cancer Procedures JAKE SCREENING SCREENING MAMMOGRAPHY BI 2-VIEW BREAST INC Sharon Gallagher, DISH MACHINE OPERATOR.INVENTORY CLERK [address] [facility] [address] [place] [address] Br Imaging [address] [place] [address] Referral ID Status Reason Start Date Expiration Date V isits Requested Visits Authorized [id number] Closed Auto-Generate d Referral 11/20/2021 12/20/2022 1 1 Reason Comments Radio Gen RMP Reason Comments Radiology XR Reason Comments Cough Nasal Congestion Reason Comments Radio Gen RMP Radiology Service Pr ogress NotePATIENT NAME: Gilda SortoMRN: [id number] OF SERVICE: April 12, 2023TIME: 12:30 PMPATIENT [...] COMPLETE MINIMUM 3 VIEWS Kayla Mata MD [address] [place] [address] [place] [address] Referral ID Status Reason Start Date Expiration Date V isits Requested Visits Authorized [id number] Closed Auto-Generate d Referral 03/21/2023 04/19/2024 1 1 Reason Comments ER Follow-up Reason Comments right leg pain Pt was seen in offic e 02/27 after a fall resulting in contusion of right lower leg & traumatic hematoma of right lower leg. CT was ordered, waiting to be scheduled. Reason Comments Consult Care Teams (unrecognized sec tion and content) Php Developer Relationship Specialty Start Date End Date Gonsalo Hubbard MD [address] [place] [address] PCP - General 08/31/00 Php Developer Relationship Specialty Start Date End Date Gonsalo Hubbard MD [address] [place] [address] PCP - General 08/31/00 Php Developer Relationship Specialty Start Date End Date Gonsalo Hubbard MD [address] [place] [address] PCP - General 08/31/00 Php Developer Relationship Specialty Start Date End Date Gonsalo Hubbard MD [address] [place] [address] PCP - General 08/31/00 Php Developer Relationship Specialty Start Date End Date Gonsalo Hubbard MD [address] [place] [address] PCP - General 08/31/00 Php Developer Relationship Specialty Start Date End Date Gonsalo Hubbard MD [address] [place] [address] PCP - General 08/31/00 Php Developer Relationship Specialty Start Date End Date Gonsalo Hubbard MD [address] [place] [address] PCP - General 08/31/00 Php Developer Relationship Specialty Start Date End Date Gonsalo Hubbard MD [address] [place] [address] PCP - [employer] 05/16/21 Gonsalo Hubbard MD [address] [place] [address] PCP - General Internal Medicine 12/07/22 Eliud Weiss DPM [address] [place] [address] Referring Physician Podiatry 04/20/23 Ifeanyi Leavitt MD [address] [place] [address] Consulting Physician Dermatology 04/26/23 Sandro Trejo MD [address] [place] [address] [address] Consulting Physician Ophthalmology 04/26/23 Dr Ramirez [facility] 11/25/21 Php Developer Relationship Specialty Start Date End Date Gonsalo Hubbard MD [address] [place] [address] PCP - General 08/31/00 Team Status: Active Member Role Status Dates Gonsalo Hubbard MD Primary Care Provider Active Team Status: Inactive Member Role Status Dates Gonsalo Hubbard MD Primary Care Provider Active St art: February 21, 2024 End: February 21, 2024 Juan Lundberg APRN Emergency Provider Active Start: February 21, 2024 End: February 21, 2024 Php Developer Relationship Specialty Start Date End Date Gonsalo Hubbard MD [address] [place] [address] PCP - [employer] 05/16/21 Gonsalo Hubbard MD [address] [place] [address] PCP - General Internal Medicine 12/07/22 Eliud Weiss DPM [address] [place] [address] Referring Physician Podiatry 04/20/23 Ifeanyi Leavitt MD [address] [place] [address] Consulting Physician Dermatology 04/26/23 Sandro Trejo MD [address] [place] [address] Consulting Physician Ophthalmology 04/26/23 Dr Ramirez [facility] 11/25/21 Php Developer Relationship Specialty Start Date End Date Gonsalo Hubbard MD [address] [place] [address] PCP - [employer] 05/16/21 Gonsalo Hubbard MD [address] [place] [address] PCP - General Internal Medicine 12/07/22 Eliud Weiss DPM [address] [place] [address] Referring Physician Podiatry 04/20/23 Ifeanyi Leavitt MD [address] [place] [address] Consulting Physician Dermatology 04/26/23 Sandro Trejo MD [address] [place] [address] Consulting Physician Ophthalmology 04/26/23 Dr Ramirez [facility] V[facility] Surgery 11/25/21 Php Developer Relationship Specialty Start Date End Date Gonsalo Hubbard MD [address] [facility] [address] [place] [address] PCP - General 08/31/00 Goals (unrecognized section and content) Goals may [...] BE BASED ON THE PRIMARY CLINICAL RECORDS. [employer] [facility]. provides no warranty or guarantee of the accuracy or completeness of information in this document.
== END 2024-03-28 12:41 | disposition home or self-care (01) ==
LOC: VC 08:55
PROVIDERS: PCP Radiology Diagnostic Radiology; Visit Provider Radiology Diagnostic Radiology
DX: I83.813 Varicose veins of bilateral lower extremities with pain (principal)
CPT/HCPCS: 36471

== ENCOUNTER 2024-04-04 13:48 | Outpatient (OUT) | payer MEDICARE, SELFPAY ==
--- NOTE | 2024-04-03 15:39 | VEINCLINIC_ITS ---
Vital Signs 04/04/24 14:54 BP 132/88 BP Location Left Brachial BP Position Sitting BP Cuff Size Large Adult BP Source Manual Cuff Respiration 16 Pulse 62 Pulse Source Monitor Pulse Oximetry (%) 98 Comment The patient's blood pressure is elevated. Varicose Veins Patient in today for sclerotherapy Jb Garcia MD personally performed the services described in this documentation, as scribed by Veto Allred RN in my presence and it is both accurate and complete. IVeto RN, am scribing for, and in the presence of, Dr. Jb Li and in the presence of the patient. thigh: bilateral (symptoms left > right leg), knee: bilateral, calf: bilateral, ankle: bilateral and beltre: bilateral aching, cramping and dull 5 20 years Worsened in recent months: Yes standing elevating extremities, compression stockings and exercise Reports fatigue, heaviness, limb pain, edema and leg edema History of lower extremity trauma: No Superficial thrombophlebitis: No Family history of varicose veins: yes (Patient's mother) Has patient had previous lower extremity venous surgery: Yes Patient has previously received the following treatment(s) for lower extremity varicose veins: Reports sclerotherapy and laser therapy Does patient have a history of : yes Does patient intend to have future pregnancies: no Has patient had lower extremity venous scan with relux testing: Yes Support hose used: Yes Problems walking or doing physical activity: Yes How does it affect you: decreased ability secondary to pain/edema Do you walk much: Yes Do you stand much: No Review of Systems ROS Narrative Jb Garcia MD personally performed the services described in this documentation, as scribed by Veto Allred RN in my presence and it is both accurate and complete. Veto Garcia RN, am scribing for, and in the presence of, Dr. Jb Li and in the presence of the patient. Status of ROS 10 or more systems reviewed and unremark able except as noted in history and below Cardiovascular Reports: edema Integumentary/Breast Reports: skin pain, skin tenderness and changes in skin color Neurological Reports: weakness in extremities [facility] Medical History (Updated 02/08/24 @ 09:26 by Charisma Alexandre) Phlebitis and thrombophlebitis of superficial vessels of right lower extremity ?I80.01 - Phlebitis and thrombophlebitis of superficial vessels of right lower extremity (ICD-10) Phlebitis and thrombophlebitis of superficial vessels of left lower extremity ?I80.02 - Phlebitis and thrombophlebitis of superficial vessels of left lower extremity (ICD-10) Renal artery aneurysm ?I72.2 - Aneurysm of renal artery (ICD-10) delivery delivered ?O82 - Encounter for delivery without indication (ICD-10) Pain due to varicose veins of both lower extremities ?I83.813 - Varicose veins of bilateral lower extremities with pain (ICD-10) Squamous cell carcinoma Hyperparathyroidism ?E21.3 - Hyperparathyroidism, unspecified (ICD-10) 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 - Other specified disorders of arteries and arterioles (ICD-10) Hypertension ?I10 - Essential (primary) hypertension (ICD-10) Cataract ?H26.9 - Unspecified cataract (ICD-10) Breast cancer ?C50.919 - Malignant neoplasm of unspecified site of unspecified female breast (ICD-10) Arthritis ?M19.90 - Unspecified osteoarthritis, unspecified site (ICD-10) Anxiety ?F41.9 - Anxiety disorder, unspecified (ICD-10) Surgical History (Updated 04/04/24 @ 14:55 by Veto Allred) S/P sclerotherapy of varicose veins ?Z98.890 - Other specified postprocedural states (ICD-10) ?Z86.79 - Personal history of other diseases of the circulatory system (ICD- 10) S/P sclerotherapy of varicose veins ?Z98.890 - Other specified postprocedural states (ICD-10) ?Z86.79 - Personal history of other diseases of the circulatory system (ICD- 10) S/P sclerotherapy of varicose veins ?Z98.890 - Other specified postprocedural states (ICD-10) ?Z86.79 - Personal history of other diseases of the circulatory system (ICD- 10) S/P sclerotherapy of varicose veins ?Z98.890 - Other specified postprocedural states (ICD-10) ?Z86.79 - Personal history of other diseases of the circulatory system (ICD- 10) S/P sclerotherapy of varicose veins ?Z98.890 - Other specified postprocedural states (ICD-10) ?Z86.79 - Personal history of other diseases of the circulatory system (ICD- 10) Status post ablation of incompetent vein using laser ?Z98.890 - Other specified postprocedural states (ICD-10) History of arthroplasty of left knee ?Z96.652 - Presence of left artificial knee joint (ICD-10) History of tonsillectomy and adenoidectomy ?Z90.89 - Acquired absence of other organs (ICD-10) H/O: hysterectomy ?Z90.710 - Acquired absence of both cervix and uterus (ICD-10) History of surgical removal of squamous cell carcinoma of skin of islam region ?Z98.890 - Other specified postprocedural states (ICD-10) ?Z85.828 - Personal history of other malignant neoplasm of skin (ICD-10) H/O parathyroidectomy ?Z98.890 - Other specified postprocedural states (ICD-10) ?Z90.89 - Acquired absence of other organs (ICD-10) Hx of appendectomy ?Z90.49 - Acquired absence of other specified parts of digestive tract (ICD- 10) Family History (Updated 01/17/24 @ 11:24 by Veto Allred) Other Family history of hypertension Heart disease Pain due to varicose veins of both lower extremities Social History (Updated 01/17/24 @ 11:24 by Veto Allred) Within the past year, how often did you have a drink containing alcohol: 2-4 times a month Smoking status: Never smoker Non-prescribed substance use: denies use Meds Home Medications and Allergies Home Medications ?Medication ?Instructions ?Recorded ?Confirmed ?Type lorazepam 0.5 mg tablet (Ativan) 0.25 mg PO DAILY PRN anxiety 01/17/24 01/17/24 History multivitamin (Daily Multi-Vitamin 1 tab PO DAILY 01/17/24 01/17/24 History tablet) omeprazole 40 mg capsule,delayed 40 mg PO DAILY 01/17/24 01/17/24 History release triamterene 37.5 1 cap PO DAILY 01/17/24 01/17/24 History mg-hydrochlorothiazide 25 mg capsule zolpidem 5 mg tablet (Ambien) 01/17/24 History Allergies Allergy/AdvReac Type Severity Reaction Status Date / Time TRACY Inhibitors Allergy Severe Swelling Verified 01/17/24 11:28 of Lip/Tongue/Throat doxycycline Allergy Intermediate Rash Verified 01/17/24 11:28 nitrofurantoin Allergy Intermediate Rash Verified 01/17/24 11:28 Sulfa (Sulfonamide Allergy Rash Verified 01/17/24 11:28 Antibiotics) Exam Narrative Exam Narrative: Jb Garcia MD personally performed the services described in this documentation, as scribed by Veto Allred RN in my presence and it is both accurate and complete. IVeto RN, am scribing for, and in the presence of, Dr. Jb iL and in the presence of the patient. Constitutional Documenting provider has reviewed patient's vital signs: yes Common normals: oriented x3 Cardio Peripheral pulses: posterior tibial pulses present and dorsalis pedis pulses present Extremity Common normals: normal capillary refill General: calf tenderness and edema Right lower extremity: lower leg Right lower leg: inspection and palpation Left lower extremity: lower leg Left lower leg: inspection and palpation Neuro Common normals: oriented x3 Assessment and Plan Assessment and Plan (1) Pain due to varicose veins of both lower extremities: Plan varithena/microfoam chemical ablation right leg IJb MD personally performed the services described in this documentation, as scribed by Veto Allred RN in my presence and it is both accurate and complete. IVeto RN, am scribing for, and in the presence of, Dr. Jb Li and in the presence of the patient. Procedures Procedure Instructions Procedures sclerotherapy: Risks and benefits of the procedure were discussed at length and informed writte n consent was obtained.? Time-out procedure was performed and the correct patient and procedure were confirmed.? Staff present during time-out: Veto Allred RN and Jb Li MD.? Patient prepped and procedure performed in usual sterile fashion. Injections performed by and Veto Allred RN Sclerosing Agent:?? 4cc 0.5% Polidocanol Site Injected: right leg Number of Injections: 22 Anesthesia: Supercooled air The patient tolerated the procedure well without complication.? Hemostasis was obtained and thigh-high compression stocking was applied by patient.? Instructed patient to wear stocking for at least 96 hours and sleep with it and only remove for showering.? Will wear stocking for 2 weeks.? The patient verbalizes understanding and states they will comply.? Patient was given post-procedure instructions. Patient was discharged in good condition.? Scheduled to undergo additional injection sclerotherapy on 04/19/2024 IJb MD personally performed the services described in this docum entation, as scribed by Veto Allred RN in my presence and it is both accurate and complete. I, Veto Allred RN, am scribing for, and in the presence of, Dr. Jb Li and in the presence of the patient.
--- NOTE | 2024-04-03 15:40 | W.VEIN ---
Discharge Plan Discharge Disposition: Home, Self-Care Print Language: Malawian
--- NOTE | 2024-04-04 13:59 | VEIN_ITS ---
[address] [address] Patient Name: JACQUELIN SORTO MRN: [id number] date: 1950 Sex: F Assigned Patient Location: Current Patient Location: Accession/Order Number: [id number] Exam Date: 04/04/2024 13:59 Report Date: 04/04/2024 15:04 At the request of: JABARI SAENZ Procedure: VC INJ Sclerosing SOLMULT Vein EXAMINATION: VC INJ Sclerosing SOLMULT Vein HISTORY: I83.813 - Varicose veins of bilateral lower extremities w... COMPARISON: No relevant comparison available. TECHNIQUE: The risks and benefits of the procedure were explained at length to the patient and informed written consent was obtained. Veto Allred was present and assisted. The procedure was performed under sterile technique. The patient's leg was wrapped with Coban and postprocedural verbal and written instructions provided. SCLEROSANT: 4 cc, 0.5% polidocanol VEIN(S) INJECTED: 22 veins in the right leg VISUALIZATION: Ultrasound was not used to visualize the sclerosant ANESTHESIA: Supercooled air COMPLICATIONS: None VEIN/VC INJ Sclerosing SOLMULT Vein IMPRESSION: Technically successful sclerotherapy as described Electronically authenticated by: JABARI SAENZ Date: 04/04/2024 15:04
[2024-04-04 14:54] VITALS: BP 132/88; PULSE 62; O2SAT 98
== END 2024-04-04 14:53 | disposition home or self-care (01) ==
LOC: VC 13:58
PROVIDERS: PCP Radiology Diagnostic Radiology; Visit Provider Radiology Diagnostic Radiology
DX: I83.813 Varicose veins of bilateral lower extremities with pain (principal)
CPT/HCPCS: 36471

== ENCOUNTER 2024-04-19 14:30 | Outpatient (OUT) | payer MEDICARE, SELFPAY ==
--- NOTE | 2024-04-19 11:36 | VEINCLINIC_ITS ---
Vital Signs 04/19/24 14:28 BP 118/60 BP Location Left Brachial BP Position Sitting BP Cuff Size Adult BP Source Manual Cuff Respiration 18 Pulse 87 Pulse Source Monitor Pulse Oximetry (%) 96 Oxygen Delivery Method Room Air Varicose Veins Patient in today for Varithena/microfoam chemical ablation right leg. Jb Garcia MD personally performed the services described in this documentation, as scribed by Natalia Turk RN in my presence and it is both accurate and complete. INatalia RN, am scribing for, and in the presence of, Dr. Jb Li and in the presence of the patient. thigh: bilateral (symptoms left > right leg), knee: bilateral, calf: bilateral, ankle: bilateral and beltre: bilateral aching, cramping and dull 5 20 years Worsened in recent months: Yes standing elevating extremities, compression stockings and exercise Reports fatigue, heaviness, limb pain, edema and leg edema History of lower extremity trauma: No Superficial thrombophlebitis: No Family history of varicose veins: yes (Patient's mother) Has patient had previous lower extremity venous surgery: Yes Patient has previously received the following treatment(s) for lower extremity varicose veins: Reports sclerotherapy and laser therapy Does patient have a history of : yes Does patient intend to have future pregnancies: no Has patient had lower extremity venous scan with relux testing: Yes Support hose used: Yes Problems walking or doing physical activity: Yes How does it affect you: decreased ability secondary to pain/edema Do you walk much: Yes Do you stand much: No Review of Systems ROS Narrative Jb Garcia MD personally performed the services described in this documentation, as scribed by Natalia Turk RN in my presence and it is both accurate and complete. Natalia Garcia RN, am scribing for, and in the presence of, Dr. Jb Li and in the presence of the patient. Status of ROS 10 or more systems reviewed and unremark able except as noted in history and below Cardiovascular Reports: edema Integumentary/Breast Reports: skin pain, skin tenderness and changes in skin color Neurological Reports: weakness in extremities [facility] Medical History (Updated 02/08/24 @ 09:26 by Charisma Alexandre) Phlebitis and thrombophlebitis of superficial vessels of right lower extremity ?I80.01 - Phlebitis and thrombophlebitis of superficial vessels of right lower extremity (ICD-10) Phlebitis and thrombophlebitis of superficial vessels of left lower extremity ?I80.02 - Phlebitis and thrombophlebitis of superficial vessels of left lower extremity (ICD-10) Renal artery aneurysm ?I72.2 - Aneurysm of renal artery (ICD-10) delivery delivered ?O82 - Encounter for delivery without indication (ICD-10) Pain due to varicose veins of both lower extremities ?I83.813 - Varicose veins of bilateral lower extremities with pain (ICD-10) Squamous cell carcinoma Hyperparathyroidism ?E21.3 - Hyperparathyroidism, unspecified (ICD-10) 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 - Other specified disorders of arteries and arterioles (ICD-10) Hypertension ?I10 - Essential (primary) hypertension (ICD-10) Cataract ?H26.9 - Unspecified cataract (ICD-10) Breast cancer ?C50.919 - Malignant neoplasm of unspecified site of unspecified female breast (ICD-10) Arthritis ?M19.90 - Unspecified osteoarthritis, unspecified site (ICD-10) Anxiety ?F41.9 - Anxiety disorder, unspecified (ICD-10) Surgical History (Updated 04/04/24 @ 14:55 by Veto Allred) S/P sclerotherapy of varicose veins ?Z98.890 - Other specified postprocedural states (ICD-10) ?Z86.79 - Personal history of other diseases of the circulatory system (ICD- 10) S/P sclerotherapy of varicose veins ?Z98.890 - Other specified postprocedural states (ICD-10) ?Z86.79 - Personal history of other diseases of the circulatory system (ICD-10) S/P sclerotherapy of varicose veins ?Z98.890 - Other specified postprocedural states (ICD-10) ?Z86.79 - Personal history of other diseases of the circulatory system (ICD- 10) S/P sclerotherapy of varicose veins ?Z98.890 - Other specified postprocedural states (ICD-10) ?Z86.79 - Personal history of other diseases of the circulatory system (ICD- 10) S/P sclerotherapy of varicose veins ?Z98.890 - Other specified postprocedural states (ICD-10) ?Z86.79 - Personal history of other diseases of the circulatory system (ICD- 10) Status post ablation of incompetent vein using laser ?Z98.890 - Other specified postprocedural states (ICD-10) History of arthroplasty of left knee ?Z96.652 - Presence of left artificial knee joint (ICD-10) History of tonsillectomy and adenoidectomy ?Z90.89 - Acquired absence of other organs (ICD-10) H/O: hysterectomy ?Z90.710 - Acquired absence of both cervix and uterus (ICD-10) History of surgical removal of squamous cell carcinoma of skin of yarsani region ?Z98.890 - Other specified postprocedural states (ICD-10) ?Z85.828 - Personal history of other malignant neoplasm of skin (ICD-10) H/O parathyroidectomy ?Z98.890 - Other specified postprocedural states (ICD-10) ?Z90.89 - Acquired absence of other organs (ICD-10) Hx of appendectomy ?Z90.49 - Acquired absence of other specified parts of digestive tract (ICD- 10) Family History (Updated 01/17/24 @ 11:24 by Veto Allred) Other Family history of hypertension Heart disease Pain due to varicose veins of both lower extremities Social History (Updated 01/17/24 @ 11:24 by Veto Allred) Within the past year, how often did you have a drink containing alcohol: 2-4 times a month Smoking status: Never smoker Non-prescribed substance use: denies use Meds Home Medications and Allergies Home Medications ?Medication ?Instructions ?Recorded ?Confirmed ?Type lorazepam 0.5 mg tablet (Ativan) 0.25 mg PO DAILY PRN anxiety 01/17/24 01/17/24 History multivitamin (Daily Multi-Vitamin 1 tab PO DAILY 01/17/24 01/17/24 History tablet) omeprazole 40 mg capsule,delayed 40 mg PO DAILY 01/17/24 01/17/24 History release triamterene 37.5 1 cap PO DAILY 01/17/24 01/17/24 History mg-hydrochlorothiazide 25 mg capsule zolpidem 5 mg tablet (Ambien) 01/17/24 History Allergies Allergy/AdvReac Type Severity Reaction Status Date / Time TRACY Inhibitors Allergy Severe Swelling Verified 01/17/24 11:28 of Lip/Tongue/Throat doxycycline Allergy Intermediate Rash Verified 01/17/24 11:28 nitrofurantoin Allergy Intermediate Rash Verified 01/17/24 11:28 Sulfa (Sulfonamide Allergy Rash Verified 01/17/24 11:28 Antibiotics) Exam Narrative Exam Narrative: IJb MD personally performed the services described in this documentation, as scribed by Natalia Turk RN in my presence and it is both accurate and complete. I, Natalia Turk RN, am scribing for, and in the presence of, Dr. Jb Li and in the presence of the patient. Constitutional Documenting provider has reviewed patient's vital signs: yes Common normals: oriented x3 Cardio Peripheral pulses: posterior tibial pulses present and dorsalis pedis pulses present Extremity Common normals: normal capillary refill General: calf tenderness and edema Right lower extremity: lower leg Right lower leg: inspection and palpation Left lower extremity: lower leg Left lower leg: inspection and palpation Neuro Common normals: oriented x3 Assessment and Plan Assessment and Plan (1) Pain due to varicose veins of both lower extremities: Plan The patient tolerated the procedure well without complication.? The patient verbalizes understanding and states they will comply.? Patient was given post- procedure instructions. Patient was discharged in good condition.? Scheduled to undergo follow-up evaluation on 04/24/24. The patient tolerated the procedure well without complication.? The patient verbalizes understanding and states they will comply.? Patient was given post- procedure instructions. Patient was discharged in good condition.? Scheduled to undergo follow-up evaluation/additional laser treatment on?04/24/24. Procedures Procedure Instructions Procedures leg microfoam chemical ablation/Varithena: Risks and benefits of the procedure were discussed at length and informed written consent was obtained.? Time-out procedure was performed and the correct patient and procedure were confirmed.? Staff present during time-out: Natalia Turk RN and Jb Li MD.? Patient prepped and procedure performed in usual sterile fashion.? Patient was placed in Trendelenburg prior to Polidocanol/Varithena injections. Sclerosing Agent:?? 4cc 1% Polidocanol/Varithena Site Injected: right leg Number of Injections:? 4cc into 4mm vein right lateral knee 2cc into 4mm vein right lateral mid thigh 3cc into 3mm vein right posterior knee 2cc into 3mm vein right posterior mid thigh 2cc into 3mm vein right posterior mid calf The patient tolerated the procedure well without complication.? Hemostasis was obtained and thigh-high compression stocking was applied with foam pads.? Instructed patient to wear stocking for at least 96 hours and sleep with it and only remove for showering.? The patient was instructed to? wear stocking for 2 weeks.? Patient verbalizes understanding and states they will comply.? Patient was given post-procedure instructions. Patient was discharged in good condition.? Scheduled to undergo limited venous ultrasound and? exam on 04/24/24. IJb MD personally performed the services described in this documentation, as scribed by Natalia Turk RN in my presence and it is both accurate and complete. I, Natalia Turk RN, am scribing for, and in the presence of, Dr. Jb Li and in the presence of the patient.
--- NOTE | 2024-04-19 11:44 | P.DS_ITS ---
Discharge Plan Discharge Disposition: Home, Self-Care Outpatient Diagnostics: VC Facility EST LMTD (Routine) Timeframe: 2 Weeks Facility: [facility] - Location: [facility] Ordered By: Jb Li VC EXT Venous RT LMTD (Routine) Timeframe: 2 Weeks Facility: [facility] - Location: Vein Center Ordered By: Jb Li Follow Up Appointments: 04/24/24 Plan of Treatment: u/s follow following varithena right leg 04/19/24 Patient Instructions: Polidocanol (By injection) (Taty Jolley) Print Language: Ukrainian Discharge Date/Time: 04/19/24 15:21
[2024-04-19 14:28] VITALS: BP 118/60; PULSE 87; O2SAT 96
--- NOTE | 2024-04-19 14:32 | VEIN_ITS ---
[address] [address] Patient Name: JACQUELIN SORTO MRN: [id number] date: 1950 Sex: F Assigned Patient Location: Current Patient Location: Accession/Order Number: [id number] Exam Date: 04/19/2024 14:32 Report Date: 04/19/2024 15:31 At the request of: ELPIDIO IRIZARRY Procedure: VC INJ Foam Sclerosant WUS HUNTING GUIDE PROCEDURE: VC INJ Foam Sclerosant WUS HUNTING GUIDE COMPARISON: None. HISTORY: I83.813 - Varicose veins of bilateral lower extremities w... Pre-operative Diagnosis: CEAP class C4a venous insufficiency with pain, tenderness, edema and incompetent right saphenous and varicose vein(s), chronic venous insufficiency right leg secondary to venous incompetence Post-operative Diagnosis: CEAP class C4a venous insufficiency with pain, tenderness, edema and incompetent right saphenous and varicose vein(s), chronic venous insufficiency right leg secondary to venous incompetence Procedure Performed: 1. Ultrasound-guided microfoam chemical ablation with Varithenaregistered 2. Intraoperative ultrasound guidance Anesthesia: None Indications for Procedure: 73-year-old female who presents with a long history of lower extremity pain swelling varicose veins and hemosiderin staining. The patient failed conservative medical therapy including medical compression stockings, exercise and analgesics. Prior procedures include an endometrial ablation and Microfoam chemical ablation. Multiple incompetent varicosities of the left leg. Duplex scan showed reflux and enlarged diameters up to 4 mm. The patient underwent informed consent including management options where the complications of infection, bleeding, pain, and skin injury were discussed. Particular attention was spent discussing thrombus extension and deep vein thrombosis as well as the possibility of pulmonary embolus and treatment with oral or injectable blood thinners. Procedure: The patient walked to the procedure room. All applicable staff donned appropriate apparel. A procedure timeout was performed to confirm correct patient, correct extremity, correct procedure, and correct room set-up including presence of all applicable supplies, devices, and drugs. A duplex ultrasound, performed by myself confirmed the location and incompetence of branch saphenous varicosities and their course was marked on the skin together with the dilated tributaries. The extent of treatment of the vein and the associated varicosities was determined through ultrasound mapping. The skin was prepped and then punctured with a butterfly needle and advanced under ultrasound guidance. The Varithenaregistered canister was activated and the canister was primed and purged as required in the instructions for use. Varithenaregistered was drawn into a sterile syringe. Following injections were made: 4 cc injected into a 4 mm varicose vein right lateral knee 2 cc injected into a 4 mm varicose vein right lateral mid thigh 3 cc injected into a 3 cc varicose vein right posterior knee varicose vein 2 cc injected into a 3 mm right posterior thigh varicose vein 2 cc injected into a right posterior 3 mm midcalf varicose vein Varithenaregistered was slowly administered at 0.5-1.0 cc/second with close observation by ultrasound of its course in the vessels. Total volume utilized was: 13cc. Following administration of Varithenaregistered the leg was elevated and the patient was asked to repeatedly dorsiflex the ankle to limit flow of Varithenaregistered into perforating veins. Once appropriate spasm had been confirmed in the treated veins, the vascular catheter was removed from the leg and light pressure was applied over the puncture site for hemostasis. The common femoral and deep superficial veins were then evaluated for flow and compressibility prior to dressing placement. The lower extremity was kept elevated at 45 degrees above the horizontal and cording material was applied over the saphenous segments and tributaries to allow for eccentric compression over the target vessels including the targeted saphenous vein(s). A multilayer dressing was applied consisting of foam pads, coban and thigh-high 20-30 mm Hg compression elastic support hose were placed on the patient. The leg was lowered only after compression had been applied and the patient was immediately ambulatory. The patient ambulated 10 minutes under supervision and was without apparent concerns at time of release. Post-care instructions include advising patient to keep post-treatment bandages in place and dry for 48 hours, avoid extended periods of inactivity, avoid heavy exercise for one week, wear compression stockings on the treated leg continuously for two weeks, to walk daily for 10 minutes over the next month. The patient was instructed to take an anti-inflammatory medicine as needed and to follow up for color duplex scan of the Saphenous veins, the treated branch saphenous varicosities, the adjacent deep veins, and additional treatment within 7 days. PERSONNEL: Natalia Turk Electronically authenticated by: JABARI SAENZ Date: 04/19/2024 15:31
== END 2024-04-19 15:21 | disposition home or self-care (01) ==
LOC: VC 14:31
PROVIDERS: PCP Radiology Diagnostic Radiology; Visit Provider Radiology Diagnostic Radiology
DX: I83.813 Varicose veins of bilateral lower extremities with pain (principal)
CPT/HCPCS: 36466

== ENCOUNTER 2024-04-24 13:33 | Outpatient (OUT) | payer MEDICARE, SELFPAY ==
--- NOTE | 2024-04-24 08:33 | VEINCLINIC_ITS ---
Varicose Veins Patient in today for follow up ultrasound post Varithena/microfoam chemical ablation right leg. Carlos Garcia MD personally performed the services described in this documentation, as scribed by Zandra Mota RVT, RDMS in my presence and it is both accurate and complete. Zandra Garcia RVT, RDMS, am scribing for, and in the presence of, Dr. Carlos Yeung and in the presence of the patient. thigh: bilateral (symptoms left > right leg), knee: bilateral, calf: bilateral, ankle: bilateral and beltre: bilateral aching, cramping and dull 5 20 years Worsened in recent months: Yes standing elevating extremities, compression stockings and exercise Reports fatigue, heaviness, limb pain, edema and leg edema History of lower extremity trauma: No Superficial thrombophlebitis: No Family history of varicose veins: yes (Patient's mother) Has patient had previous lower extremity venous surgery: Yes Patient has previously received the following treatment(s) for lower extremity varicose veins: Reports sclerotherapy and laser therapy Does patient have a history of : yes Does patient intend to have future pregnancies: no Has patient had lower extremity venous scan with relux testing: Yes Support hose used: Yes Problems walking or doing physical activity: Yes How does it affect you: decreased ability secondary to pain/edema Do you walk much: Yes Do you stand much: No Review of Systems ROS Narrative Carlos Garcia MD personally performed the services described in this documentation, as scribed by Zandra Mota RVT, RDMS in my presence and it is both accurate and complete. Zandra Garcia RVT, RDMS, am scribing for, and in the presence of, Dr. Carlos Yeung and in the presence of the patient. Status of ROS 10 or more systems reviewed and unremark able except as noted in history and below Cardiovascular Reports: edema Integumentary/Breast Reports: skin pain, skin tenderness and changes in skin color Neurological Reports: weakness in extremities [facility] Medical History (Updated 02/08/24 @ 09:26 by Charisma Alexandre) Phlebitis and thrombophlebitis of superficial vessels of right lower extremity ?I80.01 - Phlebitis and thrombophlebitis of superficial vessels of right lower extremity (ICD-10) Phlebitis and thrombophlebitis of superficial vessels of left lower extremity ?I80.02 - Phlebitis and thrombophlebitis of superficial vessels of left lower extremity (ICD-10) Renal artery aneurysm ?I72.2 - Aneurysm of renal artery (ICD-10) delivery delivered ?O82 - Encounter for delivery without indication (ICD-10) Pain due to varicose veins of both lower extremities ?I83.813 - Varicose veins of bilateral lower extremities with pain (ICD-10) Squamous cell carcinoma Hyperparathyroidism ?E21.3 - Hyperparathyroidism, unspecified (ICD-10) 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 - Other specified disorders of arteries and arterioles (ICD-10) Hypertension ?I10 - Essential (primary) hypertension (ICD-10) Cataract ?H26.9 - Unspecified cataract (ICD-10) Breast cancer ?C50.919 - Malignant neoplasm of unspecified site of unspecified female breast (ICD-10) Arthritis ?M19.90 - Unspecified osteoarthritis, unspecified site (ICD-10) Anxiety ?F41.9 - Anxiety disorder, unspecified (ICD-10) Surgical History (Updated 04/04/24 @ 14:55 by Veto Allred) S/P sclerotherapy of varicose veins ?Z98.890 - Other specified postprocedural states (ICD-10) ?Z86.79 - Personal history of other diseases of the circulatory system (ICD- 10) S/P sclerotherapy of varicose veins ?Z98.890 - Other specified postprocedural states (ICD-10) ?Z86.79 - Personal history of other diseases of the circulatory system (ICD- 10) S/P sclerotherapy of varicose veins ?Z98.890 - Other specified postprocedural states (ICD-10) ?Z86.79 - Personal history of other diseases of the circulatory system (ICD- 10) S/P sclerotherapy of varicose veins ?Z98.890 - Other specified postprocedural states (ICD-10) ?Z86.79 - Personal history of other diseases of the circulatory system (ICD- 10) S/P sclerotherapy of varicose veins ?Z98.890 - Other specified postprocedural states (ICD-10) ?Z86.79 - Personal history of other diseases of the circulatory system (ICD- 10) Status post ablation of incompetent vein using laser ?Z98.890 - Other specified postprocedural states (ICD-10) History of arthroplasty of left knee ?Z96.652 - Presence of left artificial knee joint (ICD-10) History of tonsillectomy and adenoidectomy ?Z90.89 - Acquired absence of other organs (ICD-10) H/O: hysterectomy ?Z90.710 - Acquired absence of both cervix and uterus (ICD-10) 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 ?Z98.890 - Other specified postprocedural states (ICD-10) ?Z85.828 - Personal history of other malignant neoplasm of skin (ICD-10) H/O parathyroidectomy ?Z98.890 - Other specified postprocedural states (ICD-10) ?Z90.89 - Acquired absence of other organs (ICD-10) Hx of appendectomy ?Z90.49 - Acquired absence of other specified parts of digestive tract (ICD- 10) Family History (Updated 01/17/24 @ 11:24 by Veto Allred) Other Family history of hypertension Heart disease Pain due to varicose veins of both lower extremities Social History (Updated 01/17/24 @ 11:24 by Veto Allred) Within the past year, how often did you have a drink containing alcohol: 2-4 times a month Smoking status: Never smoker Non-prescribed substance use: denies use Meds Home Medications and Allergies Home Medications ?Medication ?Instructions ?Recorded ?Confirmed ?Type lorazepam 0.5 mg tablet (Ativan) 0.25 mg PO DAILY PRN anxiety 01/17/24 01/17/24 History multivitamin (Daily Multi-Vitamin 1 tab PO DAILY 01/17/24 01/17/24 History tablet) omeprazole 40 mg capsule,delayed 40 mg PO DAILY 01/17/24 01/17/24 History release triamterene 37.5 1 cap PO DAILY 01/17/24 01/17/24 History mg-hydrochlorothiazide 25 mg capsule zolpidem 5 mg tablet (Ambien) 01/17/24 History Allergies Allergy/AdvReac Type Severity Reaction Status Date / Time TRACY Inhibitors Allergy Severe Swelling Verified 01/17/24 11:28 of Lip/Tongue/Throat doxycycline Allergy Intermediate Rash Verified 01/17/24 11:28 nitrofurantoin Allergy Intermediate Rash Verified 01/17/24 11:28 Sulfa (Sulfonamide Allergy Rash Verified 01/17/24 11:28 Antibiotics) Exam Narrative Exam Narrative: Carlos Garcia MD personally performed the services described in this documentation, as scribed by aZndra Mota RVT, RDMS in my presence and it is both accurate and complete. Zandra Garcia RVT, RDMS, am scribing for, and in the presence of, Dr. Carlos Yeung and in the presence of the patient. Constitutional Documenting provider has reviewed patient's vital signs: yes Common normals: oriented x3 Cardio Peripheral pulses: posterior tibial pulses present and dorsalis pedis pulses present Extremity Common normals: normal capillary refill General: calf tenderness and edema Right lower extremity: lower leg Right lower leg: inspection and palpation Left lower extremity: lower leg Left lower leg: inspection and palpation Neuro Common normals: oriented x3 Results Imaging Venous US: Radiologist's impression: The ultrasound demonstrates Varithena induced thrombus at mid/lat thigh, lateral knee, and mid/lat calf. Assessment and Plan Assessment and Plan (1) Phlebitis and thrombophlebitis of superficial vessels of right lower extremity: Plan Patient in today for follow up ultrasound of lower extremity following treatment of Varithena/microfoam completed on 04/19/24. Carlos Garcia MD personally performed the services described in this documentation, as scribed by Zandra Mota RVT, RDMS in my presence and it is both accurate and complete. Zandra Garcia RVT, RDMS, am scribing for, and in the presence of, Dr. Carlos Yeung and in the presence of the patient.
--- NOTE | 2024-04-24 08:35 | P.DS_ITS ---
Discharge Plan Discharge Disposition: Home, Self-Care Plan of Treatment: The patient is currently done with treatment and will call and return if/when symptoms occur again. Print Language: [place] Discharge Date/Time: 04/24/24 14:01
--- NOTE | 2024-04-24 13:35 | VEIN_ITS ---
Patient Name: JACQUELIN SORTO MR#: [id number] : 1950 Exam Date: 04/24/2024 Ordering Doctor: DR JABARI SAENZ M.D. RADIOLOGY REPORT PROCEDURE: [facility] EST [facility] VEIN [facility] - OFFICE VISIT FOLLOW UP [facility] PROGRESS NOTES: The patient reports improvement in leg symptoms. There has been interval reduction in varicosities. The patient has followed our recommendations to walk 20-30 minutes once or twice per day since the procedure. Physical exam demonstrates decrease in varicosities of the leg. No appreciable varicosities still in need of treatment. Review of the ultrasound performed the same day demonstrates occlusive thrombus extending throughout the treated vein(s), see separate report, consistent with a successful ablation. No thrombus extending into or beyond the saphenofemoral junction. The patient expressed great improvement in leg symptoms and is happy with treatment. [facility]: 1. Successful ablation of the right leg treated branch saphenous vein(s). 2. No remaining veins in need of treatment at this time. PLAN: Followup in future as needed. Nurse notes, history and physical were reviewed and confirmed, see attached forms. The nurse was present throughout the physical exam and consultation Dictated by: Carlos Yeung M.D. on 04/24/2024 at 14:15 Approved by: Carlos eYung M.D. on 04/24/2024 at 14:17
--- NOTE | 2024-04-24 13:35 | VEIN_ITS ---
Patient Name: AJCQUELIN SORTO MR#: [id number] : 1950 Exam Date: 04/24/2024 Ordering Doctor: DR JABARI SAENZ M.D. RADIOLOGY REPORT PROCEDURE: VC EXT VENOUS RT LMTD COMPARISON: VC EXT VENOUS RT LMTD, 02/08/2024. INDICATIONS: I80.01 - Phlebitis and thrombophlebitis of superficial ve... TECHNIQUE: Lower extremity natarajan scale and Duplex Doppler evaluation of the deep venous system from the inguinal ligament through the calf veins. FINDINGS: REGION: Left lower extremity. THROMBI: Negative for DVT. Varithena induced thrombus visualized at lateral knee, mid/lat calf, and mid/lat thigh. COMPRESSIBILITY: Non-compressible segments corresponding to thrombus FLOW: Areas of no flow corresponding to thrombus OTHER: No varicose veins remain. CONCLUSION: 1. Successful post ablation occlusion of right leg treated branch saphenous varicosities. Dictated by: Carlos Yeung M.D. on 04/24/2024 at 14:15 Approved by: Carlos Yeung M.D. on 04/24/2024 at 14:15
== END 2024-04-24 14:01 | disposition home or self-care (01) ==
LOC: VC 13:34
PROVIDERS: PCP Radiology Diagnostic Radiology; Visit Provider Radiology Diagnostic Radiology
DX: I80.01 Phlebitis and thrombophlebitis of superficial vessels of right lower extremity (principal)
CPT/HCPCS: 93971; G0463

== ENCOUNTER 2025-01-17 09:47 | Outpatient (OUT) | payer MEDICARE, SELFPAY ==
--- OUTSIDE RECORDS SUMMARY | 2025-01-07 14:00 | XMS_ITS | Encounter Summary ---
Author Organization [facility] Address [address] [place] [address] Care Team Providers Care Property Damage Claims Adjustor Name Role Phone Sean Haines MD Unavailable [phone] Sean Haines MD Primary Care Provider [phone] Eliud Weiss DPM Unavailable [phone] Ifeanyi Leavitt MD Unavailable [phone] Sandro Trejo MD Unavailable [phone] Jb Li MD Unavailable Reason for Referral * Consultation (Stat) - Authorized Specialty Diagnoses / Procedures Referred By Contac t Referred To Contact Orthopaedic Surgery Diagnoses Acute pain of right knee History of fall Swelling of right knee Carrie Blanco NP [address] [facility] [address] [place] [address] Phone: tel: fax: Shaheen Moody MD [facility] Referrals ONLY fax: Referral ID Status Reason Start Date Expiration Date Visits Requested Visits Authorized [id number] Authorized Specialty Services Required 01/07/2025 07/06/2025 1 1 Scheduling Instructions Please schedule with first available with Jose Juan Fernandez, or Dr. Shipley Reason for Visit * Reason Comments Knee Pain Encounter Details Date Type Department Care Team (Late st Contact Info) Description 01/07/2025 2:00 PM EDT Office Visit [facility] [address] [facility] [address] [place] [id number] Carrie Blanco NP [address] [place] [address] Acute pain of right knee (Primary Dx); History of fall; Swelling of right knee Social History Tobacco Use Types Packs/Day Years Used Date Smoking Tobacco: Never Smokeless Tobacco: Never Alcohol Use Standard Drinks/Week Comments Not Currently 1 (1 standard drink = 0.6 oz pure alcohol) caffeine: 1-2 cups per day of coffee PHQ-2 Answer Date Recorded Patient Health Questionnaire-2 Score 0 04/24/2024 Comments Unknown Sex and Gender Information Value Date Recorded Sex Assigned at Female 12/07/2022 1:35 PM EDT Legal Sex Female 7:17 PM EDT Gender Identity Female 12/07/2022 1:35 PM EDT Sexual Orientation Not on file 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 Subjective Patient ID: Gilda Shipley (: 1950) is a 74 y.o. female who presents for Knee Pain. HPI History of Present Illness The patient presents for evaluation of knee pain. She experienced a fall on 02/21/2024, which resulted in a visit to the ER and subsequent x-rays. Although no fractures were identified, she was referred for additional x-rays and a CT scan by [facility].The diagnosis was a severe hematoma. She was prescribed pain medication, of which she took the lasthalf dose the previous night. Despite her high pain tolerance, she rates her current pain at 9 out of 10, describing it as persistent and accompanied by swelling. The area of impact is sensitive to touch, feels hot, and appears swollen, andrew to a balloon. She reports intermittent pain that is not improving. She has not sought orthopedic consultation for this issue. She attempted to contact Dr. Marcos lastTuesday, but he has not yet reviewed her x-rays. A physical therapist suggested an MRI during her trip. She has tried both ice and heat for relief, with heat providing some comfort. Layv-byv-mebmaiq medications like Tylenol and Aleve have been ineffective, although Aleve provides some relief. Current Outpatient Medications Medication Instructions azithromycin (ZITHROMAX) 250 mg, Oral, Daily, Take 2 tabs on day 1 and 1 tab on days 2-5 then stop citalopram (CELEXA) 10 mg, Oral, Every 24 hours eye vitamin supplement (Ocuvite Eye Health Formula) capsule 1 capsule, Daily fluticasone (Flonase) 50 MCG/ACT nasal spray USE 2 SPRAYS IN EACH NOSTRIL ONCE DAILY NEEDED levocetirizine (XYZAL) 5 mg, Every 24 hours LORazepam (ATIVAN) 0.5 mg, Oral, Every 8 hours PRN methylPREDNISolone (Medrol Dospak) 4 MG tablets Take as directed on package. MISC NATURAL PRODUCTS PO 1 each, As needed Multiple Vitamin (Multivitamin Adult) tablet 1 tablet, Daily omeprazole (PriLOSEC) [address] capsule TAKE 1 CAPSULE BY MOUTH IN THE MORNING BEFORE MEALS. oxyCODONE-acetaminophen (Percocet) 5-325 MG tablet 1 tablet, Oral, Every 6 hours PRN Probiotic Product (ALIGN EXTRA STRENGTH PO) 1 tablet, Daily triamterene-hydroCHLOROthiazide (Dyazide) 37.5-25 MG capsule 1 capsule, Oral, Every morning zolpidem (AMBIEN) 5 mg, Oral, Nightly PRN Allergies Allergen Reactions Claus Inhibitors Angioedema Doxycycline Rash Nitrofurantoin GI intolerance Percocet [Oxycodone-Acetaminophen] Hallucinations Sulfa Antibiotics Unknown Other Reaction(s): Difficulty Breathing Patient Active Problem List Diagnosis Diverticulosis Essential hypertension SIOBHAN (generalized anxiety disorder) Gastroesophageal reflux disease Hammertoe of right foot Idiopathic urticaria Insomnia Mild major depression Morbid obesity (CMS-HCC) Peripheral venous insufficiency Renal artery aneurysm Seasonal allergic rhinitis Stage 3a chronic kidney disease ([facility]) Vitamin D deficiency Primary hyperparathyroidism ([facility]) Varicose veins of leg with edema Sensorineural hearing loss History of breast cancer Primary osteoarthritis involving multiple joints Review of Systems Constitutional: Negative for chills, fatigue and fever. Musculoskeletal: Positive for gait problem and joint swelling. Objective Vital signs: BP 138/82 (Patient Position: Sitting) Pulse 90 Resp 16 SpO2 98% Physical Exam HENT: Mouth/Throat: Mouth: Mucous membranes are moist. Eyes: Pupils: Pupils are equal, round, and reactive to light. Musculoskeletal: Right knee: Swelling and effusion present. No ecchymosis. Decreased range of motion. Tenderness present. Skin: General: Skin is warm and dry. Neurological: Mental Status: She is alert and oriented to person, place, and time. Psychiatric: Mood and Affect: Mood normal. Assessment/Plan Assessment & Plan 1. Knee pain: -Patient had been doing well with knee pain and it has been very tolerable until a recent vacation.She did a lot of walking and a lot of sitting and standing on the bus. Today she states the pain issevere, rated at 9 out of 10, and persistent despite the use of amhp-aqm-veudbxh medications like Tylenol and Aleve. - A referral to an food safety field specialist, either Dr. Shipley, Dr. Pablo, or Dr. Manazno, has been made for further evaluation and potential MRI. The patient is advised to contact this office if she does not receive a response from the orthopedic office within 5-7 business days. - A prescription for Percocet (oxycodone/acetaminophen 5/325 mg) has been provided to manage the pain until the orthopedic appointment. She is advised to apply ice or heat to the affected area, depending on which provides more relief, and to consider using compression. OARRS reviewed. Problem List Items Addressed This Visit None Visit Diagnoses Acute pain of right knee - Primary Relevant Medications oxyCODONE-acetaminophen (Percocet) 5-325 MG tablet Other Relevant Orders Ambulatory referral to Orthopaedic Surgery History of fall Relevant Medications oxyCODONE-acetaminophen (Percocet) 5-325 MG tablet Other Relevant Orders Ambulatory referral to Orthopaedic Surgery Swelling of right knee Relevant Medications oxyCODONE-acetaminophen (Percocet) 5-325 MG tablet Other Relevant Orders Ambulatory referral to Orthopaedic Surgery Health Maintenance Topic Date Due Influenza Vaccine (1) 01/14/2025 Medicare Annual Wellness (AWV) 05/01/2025 Colorectal Cancer Screening 11/05/2030 Pneumococcal Vaccine: 65+ Years Completed Mammogram Discontinued Immunization History Administered Date(s) Administered Hep A / Hep B 04/27/2016, 05/28/2016, 12/06/2016 Influenza, High Dose Seasonal, Preservative Free 03/29/2016, 02/06/2017, 02/20/2018, 03/15/2019, 01/17/2020 Influenza, High-dose Seasonal, Quadrivalent, Preservative Free 02/12/2021, 03/12/2022 Influenza, Seasonal, Quadrivalent, Adjuvanted 03/19/2023 Influenza, injectable, quadrivalent, preservative free 03/20/2015, 02/13/2017, 01/17/2020 Influenza, trivalent, adjuvanted 02/27/2024 Moderna SARS-CoV-2 Vaccination 06/23/2020, 07/21/2020, 03/10/2021 Pneumococcal Conjugate PCV 13 03/24/2015 Pneumococcal Polysaccharide PPSV23 03/01/2017, 03/19/2019 SARS-COV-2 (COVID-19) vaccine, mRNA, spike protein, LNP, PF, marvin-sucrose, 30 mcg/0.3 mL 03/24/2023, 03/12/2024 SARS-COV-2 (COVID-19) vaccine, mRNA, spike protein, LNP, bivalent, PF 03/30/2022 TD (adult), 2 Lf tetanus toxoid, preservative free, adsorbed 11/07/2014 Typhoid, ViCPs 04/27/2016 Zoster, Recombinant 10/16/2019, 12/24/2019 Zoster, live 01/08/2013 -Patient's chronic conditions have been reviewed in preparation for this appointment. Protocols reviewed and updated. A collaborative plan of care has been created for pt regarding specific health concerns. Any barriers to care have been identified and addressed. Any part of this document that has been added/copied from other documents has been reviewed for accuracy and updated as appropriate at the time of the patient encounter. -Follow up for Next scheduled follow-up. Carrie Blanco NP documented in this encounter Plan of Treatment Upcoming Encounters Date Type Department Care Team (Late st Contact Info) Description 04/30/2025 2:30 PM EST Office Visit [facility] [place] [facility] [address] [facility] [address] [place] [phone] Scheduled Referrals Name Type Priority Associated Diagnoses Order Schedule Ambulatory referral to Orthopaedic Surgery Outpatient Referral STAT Acute pain of right knee History of fall Swelling of right knee Expected: 01/07/2025 (Approximate), Expires: 07/10/2025 documented as of this encounter Visit Diagnoses Diagnosis Acute pain of right knee- Primary History of fall Personal history of fall Swelling of right knee documented in this encounter Care Teams Property Damage Claims Adjustor Relationship Specialty Start Date End Date Sean Haines MD [address] [facility] [address] [place] [address] PCP - [employer] 05/16/21 Sean Haines MD [address] [facility] [address] [place] [address] PCP - General Internal Medicine 12/07/22 Eliud Weiss DPM [address] [facility] [address] [place] [address] Referring Physician Podiatry 04/20/23 Ifeanyi Leavitt MD [address] [place] [address] Consulting Physician Dermatology 04/26/23 Sandro Trejo MD [address] [place] [address] Consulting Physician Ophthalmology 04/26/23 Jb Li MD [address] [facility], [place] [address] Referring Physician Diagnostic Radiology 05/01/24 Dr Ramirez [facility] Vascular Surgery 11/25/21 documented as of this encounter
--- NOTE | 2025-01-17 | XR_ITS ---
The [address] [address] Patient Name: JACQUELIN SORTO MRN: [id number] date: 1950 Sex: F Assigned Patient Location: [facility] Current Patient Location: [facility] Accession/Order Number: [id number] Exam Date: 01/17/2025 10:00 Report Date: 01/17/2025 10:29 At the request of: GIOVANNI SORTO DO Procedure: XR knee LT 2V CLINICAL DATA: Chronic right knee pain since fall one year ago. Left knee comparison. Prior left knee replacement. COMPARISON: None RIGHT KNEE - 4 views Weightbearing AP, tunnel, lateral and patellar views were obtained. There is no acute fracture or dislocation. There is slight lateral tibiofemoral joint, narrowing. No patellar subluxation is seen. There is minor marginal spurring. A trace amount joint fluid is visualized. There is no focal soft tissue swelling. XR/XR knee LT 2V IMPRESSION: MINOR DEGENERATIVE CHANGES. NO ACUTE BONY FINDINGS. LEFT KNEE - 2 views Weightbearing AP and patellar views were obtained. There is a knee prosthesis. The hardware appears intact and in appropriate position. There is no acute fracture, dislocation or patellar subluxation. No soft tissue abnormalities are visualized. IMPRESSION: SATISFACTORY APPEARANCE OF KNEE REPLACEMENT. NO ACUTE BONY FINDINGS. Impression dictated by: Jessica Au M.D. 01/17/2025 10:29 AM Dictation Location: [place] [address] Electronically authenticated by: [id number] Y Date: 01/17/2025 10:29
--- NOTE | 2025-01-17 | XR_ITS ---
The [address] [address] Patient Name: JACQUELIN SORTO MRN: [id number] date: 1950 Sex: F Assigned Patient Location: [facility] Current Patient Location: [facility] Accession/Order Number: [id number] Exam Date: 01/17/2025 10:00 Report Date: 01/17/2025 10:29 At the request of: GIOVANNICE SORTO DO Procedure: XR knee LT 2V CLINICAL DATA: Chronic right knee pain since fall one year ago. Left knee comparison. Prior left knee replacement. COMPARISON: None RIGHT KNEE - 4 views Weightbearing AP, tunnel, lateral and patellar views were obtained. There is no acute fracture or dislocation. There is slight lateral tibiofemoral joint, narrowing. No patellar subluxation is seen. There is minor marginal spurring. A trace amount joint fluid is visualized. There is no focal soft tissue swelling. XR/XR knee RT 4V IMPRESSION: MINOR DEGENERATIVE CHANGES. NO ACUTE BONY FINDINGS. LEFT KNEE - 2 views Weightbearing AP and patellar views were obtained. There is a knee prosthesis. The hardware appears intact and in appropriate position. There is no acute fracture, dislocation or patellar subluxation. No soft tissue abnormalities are visualized. IMPRESSION: SATISFACTORY APPEARANCE OF KNEE REPLACEMENT. NO ACUTE BONY FINDINGS. Impression dictated by: Jessica Au M.D. 01/17/2025 10:29 AM Dictation Location: [place] [address] Electronically authenticated by: [id number] Y Date: 01/17/2025 10:29
--- OUTSIDE RECORDS SUMMARY | 2025-01-17 09:51 | XMS_ITS | Encounter Summary ---
Author Organization [facility] Address [address] [place] [address] Care Team Providers Care High School Librarian Name Role Phone Sean Haines MD Unavailable [phone] Sean Haines MD Primary Care Provider [phone] Eliud Weiss DPM Unavailable [phone] Ifeanyi Leavitt MD Unavailable [phone] Sandro Trejo MD Unavailable Jb Li MD Unavailable Encounter Details Date Type Department Care Team (Late st Contact Info) Description 11/29/2022 Abstract [facility] [address] [place] [phone] Nalini Paris, PEDRO PABLO [address] [facility] [place] [address] [place] [address] Social History Tobacco Use Types Packs/Day Years Used Date Smoking Tobacco: Never Smokeless Tobacco: Never Tobacco Cessation:Counseling Given: Not Answered Alcohol Use Standard Drinks/Week Comments Not Currently 0 (1 standard drink = 0.6 oz pur e alcohol) Comments Unknown Sex and Gender Information Value Date Recorded Sex Assigned at Female 12/07/2022 1:35 PM EDT Legal Sex Female 7:17 PM EDT Gender Identity Female 12/07/2022 1:35 PM EDT Sexual Orientation Not on file COVID-19 Exposure Response Date Recorded In the last 10 days, have yo u been in contact with someone who was confirmed or suspected to have Coronavirus/COVID-19? No / Unsure 11/30/2022 10:01 AM EDT documented as of this encounter Plan of Treatment Upcoming Encounters Date Type Department Care Team (Late st Contact Info) Description 04/30/2025 2:30 PM EST Office Visit [facility] [place] [facility] [address] [place] [address] documented as of this encounter Visit Diagnoses Not on filedocumented in this encounter Care Teams High School Librarian Relationship Specialty Start Date End Date Sean Haines MD [address] [place] [address] PCP - [employer] 05/16/21 Sean Haines MD [address] [place] [address] PCP - General Internal Medicine 12/07/22 Eliud Weiss, DPM [address] [place] [address] Referring Physician Podiatry 04/20/23 Ifeanyi Leavitt MD [address] [place] [address] Consulting Physician Dermatology 04/26/23 Sandro Trejo MD [address] [place] [address] Consulting Physician Ophthalmology 04/26/23 Jb Li MD [address] [place] [address], [facility] [address], [place] [address] Referring Physician Diagnostic Radiology 05/01/24 Dr Ramirez [facility] Vascular Surgery 11/25/21 documented as of this encounter
--- OUTSIDE RECORDS SUMMARY | 2025-01-17 09:51 | XMS_ITS | Encounter Summary ---
Author Organization [facility] Address [facility] [place] [address] Care Team Providers Care Hot Saw Helper Name Role Phone Sean Haines MD Primary Care Provider [phone] Sammi Staley MD Unavailable [phone] Source Comments In the event this information is protected by the Federal Confidentiality of Alcohol and Drug AbusePatient Records regulations: The Federal rules restrict any use of the information to criminally investigate or prosecute any alcohol or drug abuse patient.[facility] Encounter Details Date Type Department Care Team (Late st Contact Info) Description 09/05/2012 Abstract Vascular Surg Dept [address] [place] [address] [place], [place] [address] [place] [address] Social History Tobacco Use Types Packs/Day Years Used Date Smoking Tobacco: Never Smokeless Tobacco: Never Alcohol Use Standard Drinks/Week Comments Yes 0 (1 standard drink = 0.6 oz pur e alcohol) occasional Comments No Sex and Gender Information Value Date Recorded Sex Assigned at Not on file Legal Sex Female 9:40 AM EST Gender Identity Not on file Sexual Orientation Not on file documented as of this encounter Plan of Treatment Not on file documented as of this encounter Visit Diagnoses Not on filedocumented in this encounter Care Teams Hot Saw Helper Relationship Specialty Start Date End Date Sean Haines MD [address] [place] [address] [place] [address] PCP - General 08/31/00 [place] [address] [place], [place] [id number] Primary Staff Physician Cardiology 08/14/14 6 documented as of this encounter
--- OUTSIDE RECORDS SUMMARY | 2025-01-17 09:51 | XMS_ITS | Encounter Summary ---
Author Organization [facility] Address [facility] [place] [address] Care Team Providers Care Pneumatic Jacketer Name Role Phone Sean Haines MD Primary Care Provider [phone] Sammi Staley MD Unavailable [phone] Source Comments In the event this information is protected by the Federal Confidentiality of Alcohol and Drug AbusePatient Records regulations: The Federal rules restrict any use of the information to criminally investigate or prosecute any alcohol or drug abuse patient.[facility] Encounter Details Date Type Department Care Team (Late st Contact Info) Description 03/14/2014 Patient Msg Medical Records [address] [place] [address] Provider, [facility] Updated Schedule Reminder Social History Tobacco Use Types Packs/Day Years [...] on file documented as of this encounter Functional Status * Are you deaf or do you have serious difficulty hearing? Answer Date of Assessment Author No 11/05/2013 9:52 AM Jen Horne RN * Are you blind or do you have serious difficulty seeing, even when wearing glasses? Answer Date of Assessment Author No 11/05/2013 9:52 AM Jen Horne RN * Do you have serious difficulty walking or climbing stairs? Answer Date of Assessment Author No 11/05/2013 9:52 AM Jen Horne RN * Do you have difficulty dressing or bathing? Answer Date of Assessment Author No 11/05/2013 9:52 AM Jen Horne RN * Because of a physical, mental, or emotional condition, do you have difficulty doing errands alone such as visiting a doctor's office or shopping? Answer Date of Assessment Author No 11/05/2013 9:52 AM Jen Horne RN documented as of this encounter Mental Status * Because of a physical, mental, or emotional condition, do you have serious difficulty concentrating, remembering, or making decisions? Answer Entry Date Author No 11/05/2013 9:52 AM Jen Horne RN documented in this encounter Plan of Treatment Not on file documented as of this encounter Visit Diagnoses Not on filedocumented in this encounter Care Teams Pneumatic Jacketer Relationship Specialty Start Date End Date Sean Haines MD [address] [address] PCP - General 08/31/00 [place] [address] [place] [address] Primary Staff Physician Cardiology 08/14/14 6 documented as of this encounter
--- OUTSIDE RECORDS SUMMARY | 2025-01-17 09:51 | XMS_ITS | Encounter Summary ---
Author Organization [facility] Address [facility] [place] [address] Care Team Providers Care Switch Operators Supervisor Name Role Phone Sean Haines MD Primary Care Provider [phone] Sammi Staley MD Unavailable [phone] Source Comments In the event this information is protected by the Federal Confidentiality of Alcohol and Drug AbusePatient Records regulations: The Federal rules restrict any use of the information to criminally investigate or prosecute any alcohol or drug abuse patient.[facility] Encounter Details Date Type Department Care Team (Late st Contact Info) Description 11/16/2007 Patient Msg Medical Records [address] [place] [address] Provider, [facility]cf RE: Patient Registration Completed Social History Tobacco Use Types Packs/Day Years Used Date Smoking Tobacco: Never Alcohol Use Standard Drinks/Week Comments [...] on filedocumented in this encounter Care Teams Switch Operators Supervisor Relationship Specialty Start Date End Date Sean Haines MD [address] [facility] [address] [place] [address] PCP - General 08/31/00 Sammi Staley MD [facility]0 [place] [id number] Primary Staff Physician Cardiology 08/14/14 6 documented as of this encounter
--- OUTSIDE RECORDS SUMMARY | 2025-01-17 09:51 | XMS_ITS | Encounter Summary ---
Author Organization [facility] Address [address] [facility] [address] Care Team Providers Care Transit Vehicle Inspector Name Role Phone Sean Haines MD Unavailable [phone] Sean Haines MD Primary Care Provider [phone] Eliud Weiss DPM Unavailable [phone] Ifeanyi Leavitt MD Unavailable [phone] Sandro Trejo MD Unavailable [phone] Jb Li MD Unavailable Reason for Visit * Reason Comments Med Refill Encounter Details Date Type Department Care Team (Late st Contact Info) Description 08/04/2023 Refill [facility] [address] [facility] [address] [place] [phone] Sean Haines MD [address] [facility] [address] [place] [address] Social History Tobacco Use Types Packs/Day Years Used Date Smoking Tobacco: Never Smokeless Tobacco: Never Alcohol Use Standard Drinks/Week Comments Not Currently 1 (1 standard drink = 0.6 oz pure alcohol) caffeine: 1-2 cups per day of coffee PHQ-2 Answer Date Recorded Patient Health Questionnaire-2 Score 0 04/26/2023 Comments Unknown Sex and Gender Information Value [...] Medicine [address] [place] [address] documented as of this encounter Visit Diagnoses Not on filedocumented in this encounter Care Teams Transit Vehicle Inspector Relationship Specialty Start Date End Date Sean Haines MD [address] [place] [address] PCP - [employer] 05/16/21 Sean Haines MD [address] [place] [address] PCP - General Internal Medicine 12/07/22 Eliud Weiss DPM [address] [place] [address] Referring Physician Podiatry 04/20/23 Ifeanyi Leavitt MD [address] [place] [address] Consulting Physician Dermatology 04/26/23 Sandro Trejo MD [address] [place] [address] Consulting Physician Ophthalmology 04/26/23 Jb Li MD [address] [facility], [facility] [address], [place] [address] Referring Physician Diagnostic Radiology 05/01/24 Dr Ramirez CC Vascular Surgery 11/25/21 documented as of this encounter
--- OUTSIDE RECORDS SUMMARY | 2025-01-17 09:51 | XMS_ITS | Encounter Summary ---
Author Organization [facility] Address [address] [facility] [place] [place] [address] Care Team Providers Care Provider Scribe Name Role Phone Sean Haines MD Unavailable [phone] Sean Haines MD Primary Care Provider [phone] Eliud Weiss DPEricka Unavailable [phone] Ifeanyi Leavitt MD Unavailable [phone] Sandro Trejo MD Unavailable [phone] Jb Li MD Unavailable Encounter Details Date Type Department Care Team (Late st Contact Info) Description 04/12/2023 Clinisync Result Encounter [facility] External Department Unsolicited Provider, Generic External Data Social History Tobacco Use Types Packs/Day Years Used Date Smoking Tobacco: Never Smokeless Tobacco: Never Alcohol Use Standard Drinks/Week Comments Not Currently 1 (1 standard drink = 0.6 oz pure alcohol) caffeine: 1-2 cups per day of coffee Comments Unknown Sex and Gender Information Value [...] Description 04/30/2025 2:30 PM EST Office Visit [facility] Internal Medicine [address] [place] [address] documented as of this encounter Procedures Procedure Name Priority Date/Time Associated Diagnosis Comments XR WRIST 3V PA/LAT/OBL KAYLIE 04/12/2023 12:29 PM EST documented in this encounter Results * XR WRIST 3V PA/LAT/OBL KAYLIE (04/12/2023 12:29 PM EST) Anatomical Region Laterality Modality Other 04/12/2023 12:2 9 PM EST Narrative 04/12/2023 1:58 PM EST * * *Final Report* * * DATE [...] IMPRESSION: 1. Degenerative arthrosis of both wrists. Ceramic Tile Installation Helper: [facility] Transcribe Date/Time: Apr 12 2023 1:54P Dictated by : EDITH LAZO MD This examination was interpreted and the report reviewed and electronically signed by: EDITH LAZO MD on Apr 12 2023 1:55PM EST [id number] Procedure Note Radiology, Radiologist, - 04/12/2023 * * *Final Report* * [...] IMPRESSION: 1. Degenerative arthrosis of both wrists. Ceramic Tile Installation Helper: PSCB Transcribe Date/Time: Apr 12 2023 1:54P Dictated by : EDITH LAZO MD This examination was interpreted and the report reviewed and electronically signed by: EDITH LAZO MD on Apr 12 2023 1:55PM EST [id number] us Generic External Data Provider [facility] Final Result documented in this encounter Visit Diagnoses Not on filedocumented in this encounter Care Teams Provider Scribe Relationship Specialty Start Date End Date Sean Haines MD [address] [place] [address] PCP - [employer] 05/16/21 Sean Haines MD [address] [place] [address] PCP - General Internal Medicine 12/07/22 Eliud Weiss DPM [address] [place] [address] Referring Physician Podiatry 04/20/23 Ifeanyi Leavitt MD [address] [place] [address] Consulting Physician Dermatology 04/26/23 Sandro Trejo MD [address] [place] [address] Consulting Physician Ophthalmology 04/26/23 Jb Li MD [address] [place] [address], [facility], [place] [address] Referring Physician Diagnostic Radiology 05/01/24 Dr Ramirez [facility] Vascular Surgery 11/25/21 documented as of this encounter
--- OUTSIDE RECORDS SUMMARY | 2025-01-17 09:51 | XMS_ITS | Clinical Summary ---
Author Organization [facility] Address [address] [place] [address] Phone Care Team Providers Care Spraying Machine Operator Name Role Phone Unavailable Primary Care Provider Unavailabl e Social History Tobacco Use Types Packs/Day Years Used Date Smoking Tobacco: Never Assessed Comments Unknown Sex and Gender Information Value Date Recorded Sex Assigned at Not on file Legal Sex Female 2:41 AM EDT Gender Identity Not on file Sexual Orientation Not on file Plan of Treatment Health Maintenance Due Date Last Done Comments CT Colonography 1950 Colonoscopy 1950 Colorectal Cancer Screening 1950 FIT-DNA (Cologuard) 1950 FIT 1950 Lipid Panel 1950 Sigmoidoscopy 1950 Yearly Adult Physical 1950 MMR Vaccines (1 of 1 - Stand sid series) 1951 Hepatitis C Screening 1968 DTaP/Tdap/Td Vaccines (1 - Tdap) 1972 Mammogram 1990 Pneumococcal Vaccine (1 of 1 - PCV) 2000 Zoster Vaccines (1 of 2) 2000 Bone Density Scan 2015 COVID-19 Vaccine (1 - 2023-2 5 season) 2024 Influenza Vaccine (#1) 2025 RSV High Risk: (Elderly (60+ ) or Population) (1 - 1-dose 75+ series) 2025 HIB Vaccines Aged Out No longer eligi ble based on patient's age to complete this topic HPV Vaccines Aged Out No longer eligi ble based on patient's age to complete this topic Hepatitis A Vaccines Aged Out No long er eligible based on patient's age to complete this topic Hepatitis B Vaccines Aged Out No long er eligible based on patient's age to complete this topic IPV Vaccines Aged Out No longer eligi ble based on patient's age to complete this topic Meningococcal Vaccine Aged Out No jana mojgan eligible based on patient's age to complete this topic Rotavirus Vaccines Aged Out No longer eligible based on patient's age to complete this topic
--- OUTSIDE RECORDS SUMMARY | 2025-01-17 09:51 | XMS_ITS | Encounter Summary ---
Author Organization [facility] Address [facility] [place] [address] Care Team Providers Care Computer Help Desk Specialist Name Role Phone Sean Haines MD Primary Care Provider [phone] Sammi Staley MD Unavailable [phone] Source Comments In the event this information is protected by the Federal Confidentiality of Alcohol and Drug AbusePatient Records regulations: The Federal rules restrict any use of the information to criminally investigate or prosecute any alcohol or drug abuse patient.[facility] Encounter Details Date Type Department Care Team (Late st Contact Info) Description 11/07/2014 Abstract Hematology/Oncology [address] [place] [address] Georgie Avendano, WARDROBE ASSISTANT.PRODUCTION CONTROL EXPERT [address] [place] [address] Social History Tobacco Use Types Packs/Day Years [...] hearing? Answer Date of Assessment Author No 11/07/2014 10:24 AM Chelsey Walker RN * Are you blind or do you have serious difficulty seeing, even when wearing glasses? Answer Date of Assessment Author No 11/07/2014 10:24 AM Chelsey Walker RN * Do you have serious difficulty walking or climbing stairs? Answer Date of Assessment Author No 11/07/2014 10:24 AM Chelsey Walker RN * Do you have difficulty dressing or bathing? Answer Date of Assessment Author No 11/07/2014 10:24 AM Chelsey Walker RN * Because of a physical, mental, or emotional condition, do you have difficulty doing errands alone such as visiting a doctor's office or shopping? Answer Date of Assessment Author No 11/07/2014 10:24 AM Chelsey Walker RN documented as of this encounter Mental Status * Because of a physical, mental, or emotional condition, do you have serious difficulty concentrating, remembering, or making decisions? Answer Entry Date Author No 11/07/2014 10:24 AM Chelsey Walker RN documented in this encounter Plan of Treatment Not on file documented as of this encounter Visit Diagnoses Not on filedocumented in this encounter Care Teams Computer Help Desk Specialist Relationship Specialty Start Date End Date Sean Haines MD [address] [facility] [address] [place] [address] PCP - General 08/31/00 [place] [address] [place] [address] Primary Staff Physician Cardiology 08/14/14 6 documented as of this encounter
--- OUTSIDE RECORDS SUMMARY | 2025-01-17 09:51 | XMS_ITS | Clinical Summary ---
Author Organization [facility] Address [address] [facility] [place] [address] Care Team Providers Care Casket Upholsterer Name Role Phone Sean Haines MD Unavailable [phone] Sean Haines MD Primary Care Provider [phone] Eliud Weiss DPM Unavailable [phone] Ifeanyi Leavitt MD Unavailable [phone] Sandro Trejo MD Unavailable [phone] Jb Li MD Unavailable Allergies Active Allergy Reactions Criticality Noted Date Comments Claus Inhibitors Angioedema Low 11/29/2022 Doxycycline Rash Low 11/29/2022 Nitrofurantoin GI intolerance Low 11/29/2022 Oxycodone-Acetaminophen Hallucinations Low 03/20/20 24 Sulfa Antibiotics Unknown Low 11/21/2021 Other Reaction(s): Difficulty Breathing Medications levocetirizine (Xyzal) 5 MG tablet Take 5 mg by mouth 1 (one) time each day at the same time. Active Multiple Vitamin (Multivitamin Adult) tablet Take 1 tablet by mouth 1 (one) time each day. Active MISC NATURAL PRODUCTS PO Take 1 each by mouth if needed. CBD Gummies Active eye vitamin supplement (Ocuvite Eye Health Formula) capsule Take 1 capsule by mouth in the morning. 04/14/20 12 Active fluticasone (Flonase) 50 MCG/ACT nasal sprayIndications:S easonal allergic rhinitis, unspecified trigger USE 2 SPRAYS IN EACH NOSTRIL ONCE DAILY NEEDED 48 g 3 09/21/19 24 Active triamterene-hydroC HLOROthiazide (Dyazide) 37.5-25 MG capsuleIndications :Essential hypertension TAKE 1 CAPSULE BY MOUTH EVERY MORNING 90 capsule 3 03/09/20 24 Active omeprazole (PriLOSEC) [address] capsuleIndications :Gastroesophageal reflux disease without esophagitis TAKE 1 CAPSULE BY MOUTH IN THE MORNING BEFORE MEALS. 90 capsule 3 04/06/20 24 Active citalopram (CeleXA) 10 MG tabletIndications: Mild major depression Take 1 tablet (10 mg) by mouth 1 (one) time each day at the same time 90 tablet 3 07/26/19 25 Active Probiotic Product (ALIGN EXTRA STRENGTH PO) Take 1 tablet by mouth Daily Active zolpidem (Ambien) 5 MG tabletIndications: Primary insomnia Take 1 tablet (5 mg) by mouth as needed at bedtime for sleep 90 tablet 1 10/26/19 25 Active LORazepam (Ativan) 0.5 MG tabletIndications: SIOBHAN (generalized anxiety disorder) Take 1 tablet (0.5 mg) by mouth every 8 (eight) hours if needed for anxiety 90 tablet 10/26/19 25 Active methylPREDNISolone (Medrol Dospak) 4 MG tabletsIndications :Primary osteoarthritis involving multiple joints Take as directed on package. 21 tablet 09/21/19 25 025 Discontinu ed(Other) azithromycin (Zithromax) 250 MG tabletIndications: Acute cough,Bronchitis Take 1 tablet (250 mg) by mouth Daily Take 2 tabs on day 1 and 1 tab on days 2-5 then stop 6 tablet 10/02/19 25 025 Discontinu ed(Other) oxyCODONE-acetamin ophen (Percocet) 5-325 MG tabletIndications: Acute pain of right knee,History of fall,Swelling of right knee Take 1 tablet by mouth every 6 (six) hours if needed for moderate pain or severe pain for up to 7 days 28 tablet 01/08/20 25 025 Active Problems Problem Noted Date Diagnosed Date Primary osteoarthritis involving multiple joints 04/26/2023 Diverticulosis 11/29/2022 Essential hypertension 11/29/2022 SIOBHAN (generalized anxiety disorder) 11/29/2022 Gastroesophageal reflux disease 11/29/2022 Hammertoe of right foot 11/29/2022 Idiopathic urticaria 11/29/2022 Insomnia 11/29/2022 Mild major depression 11/29/2022 Morbid obesity 11/29/2022 Peripheral venous insufficiency 11/29/2022 Renal artery aneurysm 11/29/2022 Seasonal allergic rhinitis 11/29/2022 Stage 3a chronic kidney disease 11/29/2022 Vitamin D deficiency 11/29/2022 History of breast cancer 12/02/2017 Overview (04/26/2023): Added automatically from request for surgery [id number] Last Assessment & Plan: Assessment: s/p right part mastectomy and SLNB, chemo and radiation NO BP/IV in right arm Varicose veins of leg with edema 10/28/2015 Primary hyperparathyroidism 09/10/2015 Sensorineural hearing loss 11/26/2004 Resolved Problems Problem Noted Date Diagnosed Date Resolved Date Tear of lateral meniscus of knee 01/06/2018 04/26/2023 Overview (04/26/2023): Added automatically from request for surgery [id number] S/P partial mastectomy, right 12/02/2017 04/26/2023 Overview (04/26/2023): Added automatically from request for surgery [id number] Encounters Date Type Department Care Team Description 01/07/2025 2:00 PM EDT Office Visit [facility] Internal Medicine [address] [place] [address] Carrie Blanco, CICI Acute pain of right knee (Primary Dx); History of fall; Swelling of right knee 01/07/2025 Travel 10/25/2024 Refill [facility] Internal Medicine [address] [place] [address] Gi Blandon PA Primary insomnia; SIOBHAN (generalized anxiety disorder) from Last 3 Months Immunizations Immunization Administration Dates Next Due Hep A / Hep B 12/06/2016,05/28/2016,04/27/2016 Influenza, High Dose Seasona l, Preservative Free 01/17/2020,03/15/2019,02/20/2018,02/06,03/29/2016 Influenza, High-dose Seasona l, Quadrivalent, Preservative Free 03/12/2022,02/12/2021 Influenza, Seasonal, Quadriv alent, Adjuvanted 03/19/2023 Influenza, injectable, quadr ivalent, preservative free 01/17/2020,02/13/2017,03/20/2015 Influenza, trivalent, adjuvanted 02/27/2024 Moderna SARS-CoV-2 Vaccination 07/21/2020,2020 Pneumococcal Conjugate PCV 13 03/24/2015 Pneumococcal Polysaccharide PPSV23 03/19/2019, SARS-COV-2 (COVID-19) vaccin e, mRNA, spike protein, LNP, bivalent, PF 03/30/2022 TD (adult), 2 Lf tetanus tox oid, preservative free, adsorbed 11/07/2014 Typhoid, ViCPs 04/27/2016 Zoster, Recombinant 12/24/2019,10/16/2019 Zoster, live 01/08/2013 Family History Medical History Relation Name Comments Heart disease Father Filippo Hypertension Mother Kirera No Known Problems Paternal Grandfather No Known Problems Sister Relation Name Status Comments Father Filippo Mother Kierar Paternal Grandfather Sister 1 sister Social History Tobacco Use Types Packs/Day Years [...] file Not on file Not on file Last Filed Vital Signs Vital Sign Reading Time Taken Comments Blood Pressure 138/82 01/07/2025 2:33 PM EDT Pulse 90 01/07/2025 2:33 PM EDT Temperature 36.1 C (97 F) 10/01/2024 2:26 PM EDT Respiratory Rate 16 01/07/2025 2:33 PM EDT Oxygen Saturation 98% 01/07/2025 2:33 PM EDT Inhaled Oxygen Concentration - - Weight 89.9 kg (198 lb 3.1 oz) 10/01/2024 2:23 P M EDT Height 160 cm (5' 3 ) 09/20/2024 9:14 AM EDT Body Mass Index 35.11 09/20/2024 9:14 AM EDT Plan of Treatment Upcoming Encounters Date Type Department Care Team (Late st Contact Info) Description 04/30/2025 2:30 PM EST Office Visit [facility]RIEL Rodrigues Internal Medicine [address] [place] [phone] Health Maintenance Due Date Last Done Comments CT Colonography 1950 FIT-DNA 1950 FIT 1950 FOBT 1950 Sigmoidoscopy 1950 Influenza Vaccine (#1) 2025 , 03/19/2023, 03/12/2022, Additional history exists Medicare Annual Wellness (AWV) 05/01/2025 1 07/02/2023, 05/01/2024, 05/05/2022, Additional history exists Colonoscopy 11/05/2030 11/05/2020 Colorectal Cancer Screening 11/05/2030 Pneumococcal Vaccine: 65+ Years Completed 03/19/2019, 03/01/2017, 03/24/2015 Mammogram Discontinued 09/05/2024, 12/0 09/2022, 04/16/2022, Additional history exists Procedures Procedure Name Priority Date/Time Associated Diagnosis Comments BI MAMMOGRAM SCREENING TOMOSYNTHESIS BILATERAL 09/05/2024 11:25 AM EDT COLONOSCOPY Routine 11/05/2020 12:00 PM EDT Encounter for screening for malignant neoplasm of colon from Last 3 Months or Most Recently Relevant to Health Maintenance Results * Bilateral screening mammogram with tomosynthesis (09/05/2024 11:25 AM EDT) Anatomical Region Laterality Modality Breast Bilateral Mammography 09/05/2024 11:2 5 AM EDT Impressions 09/05/2024 12:42 PM EDT No mammographic evidence of malignancy. Routine follow-up recommended in one year. RESULT CODE: 2 Benign Findings(s) DENSITY CODE: 2 (approximately 25-50% glandular) There are scattered areas of fibroglandular density. FOLLOW UP: 1YR THE FALSE-NEGATIVE RATE OF MAMMOGRAPHY IS APPROXIMATELY 10%. IMAGING OF A PALPABLE ABNORMALITY MUST BE BASED ON CLINICAL GROUNDS. PATIENT WAS ENTERED INTO A REMINDER SYSTEM WITH A TARGET DUE DATE FOR THE NEXT MAMMOGRAM. Impression dictated by: Trey Gutierrez M.D.09/05/2024 11:26 AM Dictation Location: [facility] Dictated By: Trey Gutierrez DO 09/05/241124 Signed By: <Electronically signed by Trey Gutierrez DO in OV> 09/05/24 1126 Narrative 09/05/2024 12:42 PM EDT [facility] [address] [place] [address] Mammography Report Signed Patient: Gilda Shipley MR#: [id number] 0 : 1950 Acct:[id number] Age/Sex: 74 / F Adm Date: 09/05/24 Loc: [place] Room: Type: [facility] Attending Dr: Gi Blandon PA-C Ordering Provider: Gi Blandon PA-C Date of Service: 09/05/24 Procedure(s): MM screening mammo BI w/CAD Accession Number(s): ([id number]) MM/MM screening mammo BI w/CAD: SCREENING Copies to: MD Gi Sandoval PA-C BILATERAL Screening Full Field digital mammogram with 3-D imaging. Full field digital CC and MLO imaging performed. CAD utilized. COMPARISON: 04/19/2023 HISTORY: Right lumpectomy. History of breast cancer. BREAST COMPOSITION: Scattered fibroglandular densities of the breast parenchyma identified BREAST CALCIFICATIONS: Benign calcifications present. VASCULAR CALCIFICATIONS: None ARCHITECTURAL DISTORTION: None BREAST NODULE: None AXILLARY LYMPH NODES: Normal POSTSURGICAL CHANGES: Right lumpectomy changes MM/MM screening mammo BI w/CAD Procedure Note Radiology, Radiologist, - 09/05/[address] [place], [place] [id number] Mammography Report Signed Patient: Gilda Shipley DMR#: [id number] 0 : 1950cct:[id number] Age/Sex: 74 / FAdm Date: 09/05/24 Loc: [place] Room:Type: [facility] Attending Dr: Gi Blandon PA-C Ordering Provider: Gi Blandon PA-C Date of Service: 09/05/24 Procedure(s): MM screening mammo BI w/CAD Accession Number(s): ([id number]) MM/MM screening mammo BI w/CAD:SCREENING Copies to: MD Gi Sandoval PA-C BILATERAL Screening Full Field digital mammogram with 3-D imaging. Full field digital CC and MLO imaging performed. CAD utilized. COMPARISON: 04/19/2023 HISTORY: Right lumpectomy. History of breast cancer. BREAST COMPOSITION: Scattered fibroglandular densities of the breastparenchyma identified BREAST CALCIFICATIONS: Benign calcifications present. VASCULAR CALCIFICATIONS: None ARCHITECTURAL DISTORTION: None BREAST NODULE: None AXILLARY LYMPH NODES: Normal POSTSURGICAL CHANGES: Right lumpectomy changes MM/MM screening mammo BI w/CAD IMPRESSION: No mammographic evidence of malignancy. Routine follow-up recommended inone year. RESULT CODE: 2 Benign Findings(s) DENSITY CODE: 2 (approximately 25-50% glandular) There are scattered areasof fibroglandular density. FOLLOW UP: 1YR THE FALSE-NEGATIVE RATE OF MAMMOGRAPHY IS APPROXIMATELY 10%. IMAGING OF A PALPABLE ABNORMALITY MUST BE BASED ON CLINICAL GROUNDS. PATIENT WAS ENTERED INTO A REMINDER SYSTEM WITH A TARGET DUE DATE FOR THENEXT MAMMOGRAM. Impression dictated by: Trey Gutierrez M.D.09/05/2024 11:26 AM Dictation Location: [facility] Dictated By: Trey Gutierrez DO 09/05/24 1125 Signed By: <Electronically signed by Trey Gutierrez DO in OV> 09/05/24 1126 Gi GOODWIN IMG BI PROCEDURES Final Resu lt * Colonoscopy (11/05/2020 12:00 PM EDT) Anatomical Region Laterality Modality Endoscopy 11/05/2020 12:0 0 PM EDT Narrative 11/05/2020 12:00 PM EDT PERFORMED AT [facility] LOCATION:[id number] Procedure Note CONVERSION, GENERIC - 09/29/2022 PERFORMED AT [facility] LOCATION:[id number] Chad Rodriguez DO ENDOSCOPY PROCEDURE ORDERABLES Final Result from Last 3 Months or Most Recently Relevant to Health Maintenance Insurance [employer] MED[employer]ARE [employer]VANTAGE Care Teams Casket Upholsterer Relationship Specialty Start Date End Date Sean Haines MD [address] [place] [address] PCP - [employer] 05/16/21 Sean Haines MD [address] [place] [address] PCP - General Internal Medicine 12/07/22 Eliud Weiss DPM [address] [place] [address] Referring Physician Podiatry 04/20/23 Ifeanyi Leavitt MD [address] [facility] [place] [address] Consulting Physician Dermatology 04/26/23 Sandro Trejo MD [address] [place] [address] Consulting Physician Ophthalmology 04/26/23 Jb Li MD [address] [place] [address], [facility] [address], [place] [address] Referring Physician Diagnostic Radiology 05/01/24 Dr Ramirez F Vascular Surgery 11/25/21
--- OUTSIDE RECORDS SUMMARY | 2025-01-17 09:51 | XMS_ITS | Encounter Summary ---
Author Organization [facility] Address [address] [facility] [place] [address] Care Team Providers Care Customer Operations Associate Name Role Phone Sean Haines MD Unavailable [phone] Sean Haines MD Primary Care Provider [phone] Eliud Weiss DPM Unavailable [phone] Ifeanyi Leavitt MD Unavailable [phone] Sandro Trejo MD Unavailable [phone] Jb Li MD Unavailable Encounter Details Date Type Department Care Team (Latest Contact Info) Description 09/05/2024 [facility] [address] [facility] [address] [place] [address] Myriam Senior, BAND BOOKER [address] [facility] [address] [place], [place] [id number] Bilateral screening mammogram with tomosynthesis Social History Tobacco Use Types Packs/Day Years [...] Description 04/30/2025 2:30 PM EST Office Visit [facility] [address] [place] [address] documented as of this encounter Visit Diagnoses Not on filedocumented in this encounter Care Teams Customer Operations Associate Relationship Specialty Start Date End Date Sean Haines MD [address] [place] [address] PCP - [employer] 05/16/21 Sean Haines MD [address] [place] [address] PCP - General Internal Medicine 12/07/22 Eliud Weiss DPM [address] [place] [address] Referring Physician Podiatry 04/20/23 Ifeanyi Leavitt MD [address] [place] [address] Consulting Physician Dermatology 04/26/23 Sandro Trejo MD [address] [place] [address] Consulting Physician Ophthalmology 04/26/23 Jb Li MD [address] [facility], [facility] [address], [place] [address] Referring Physician Diagnostic Radiology 05/01/24 Dr Ramirez [facility] Vascular Surgery 11/25/21 documented as of this encounter
--- OUTSIDE RECORDS SUMMARY | 2025-01-17 09:51 | XMS_ITS | Encounter Summary ---
Author Organization [facility] Address [facility] [place] [address] Care Team Providers Care Customer Care Manager Name Role Phone Sean Haines MD Primary Care Provider [phone] Sammi Staley MD Unavailable [phone] Source Comments In the event this information is protected by the Federal Confidentiality of Alcohol and Drug AbusePatient Records regulations: The Federal rules restrict any use of the information to criminally investigate or prosecute any alcohol or drug abuse patient.[facility] Encounter Details Date Type Department Care Team (Late st Contact Info) Description 11/16/2007 Patient Msg Medical Records [address] [place] [address] Provider, [facility] Patient Registration Social History Tobacco Use Types Packs/Day Years [...] filedocumented in this encounter Care Teams Customer Care Manager Relationship Specialty Start Date End Date Sean Haines MD [address] [facility] [address] [place] [address] PCP - General 08/31/00 Sammi Staley MD [address] [place] [address] Primary Staff Physician Cardiology 08/14/14 6 documented as of this encounter
--- OUTSIDE RECORDS SUMMARY | 2025-01-17 09:51 | XMS_ITS | Encounter Summary ---
Author Organization [facility] Address [address] [facility] [place] [address] Care Team Providers Care Flange Turner Name Role Phone Sean Haines MD Unavailable [phone] Sean Haines MD Primary Care Provider Eliud Weiss DPM Unavailable [phone] Ifeanyi Leavitt MD Unavailable [phone] Sandro Trejo MD Unavailable [phone] Jb Li MD Unavailable Reason for Visit * Reason Comments Med Refill Encounter Details Date Type Department Care Team (Late st Contact Info) Description 04/30/2024 Refill [facility] [place] [facility] [address] [facility] [address] [place] [address] Sean Haines MD [address] [facility] [address] [place] [address] SIOBHAN (generalized anxiety disorder) Social History Tobacco Use Types Packs/Day Years [...] on file documented as of this encounter Miscellaneous Notes * Telephone Encounter - Jadiel Jenkins MA - 04/30/2024 1:20 PM EST Patient needs to call to request the refill documented in this encounter Plan of Treatment Upcoming Encounters Date Type Department Care Team (Late st Contact Info) Description 04/30/2025 2:30 PM EST Office Visit [facility] [place] [facility] [address] [place] [address] documented as of this encounter Visit Diagnoses Diagnosis SIOBHAN (generalized anxiety disorder) Generalized anxiety disorder documented in this encounter Care Teams Flange Turner Relationship Specialty Start Date End Date Sean Haines MD [address] [place] [address] PCP - [employer] 05/16/21 Sean Haines MD [address] [place] [address] PCP - General Internal Medicine 12/07/22 Eliud Weiss DPM [address] [place] [address] Referring Physician Podiatry 04/20/23 Ifeanyi Leavitt MD [address] [place] [address] Consulting Physician Dermatology 04/26/23 Sandro Trejo MD [address] [facility] [place] [address] Consulting Physician Ophthalmology 04/26/23 Jb Li MD [address] [place] [address], [facility] [address], [place] [address] Referring Physician Diagnostic Radiology 05/01/24 Dr Ramirez [facility] Vascular Surgery 11/25/21 documented as of this encounter
--- OUTSIDE RECORDS SUMMARY | 2025-01-17 09:51 | XMS_ITS | Encounter Summary ---
Author Organization [facility] Address [address] [place] [address] Care Team Providers Care Galvanizing Pot Runner Name Role Phone Sean Haines MD Primary Care Provider [phone] Source Comments In the event this information is protected by the Federal Confidentiality of Alcohol and Drug AbusePatient Records regulations: The Federal rules restrict any use of the information to criminally investigate or prosecute any alcohol or drug abuse patient.[facility] Encounter Details Date Type Department Care Team (Late st Contact Info) Description 04/10/2023 Patient Msg Hematology/Oncology [address] [place] [address] Renee Luis APRN.MEDICAL CODING TECHNICIAN [address] [place] [address] Appointment Cancellation Request Social History Tobacco Use Types Packs/Day Years Used Date Smoking Tobacco: Never Smokeless Tobacco: Never Alcohol Use Standard Drinks/Week Comments Yes 0 (1 standard drink = 0.6 oz pure alcohol) A GLASS OF WINE ALMOST EVERY NIGHT BEFORE BED AUDIT-C Answer Date Recorded Q1: How often do you have a drink containing alcohol? 4 or more times a week 11/26/2019 Q2: How many drinks containi ng alcohol do you have on a typical day when you are drinking? 1 or 2 0 Q3: How often do you have si x or more drinks on one occasion? Never 11/26/2019 Overall Financial Resource Strain (CARDIA) Answe r Date Recorded How hard is it for you to pa y for the very basics like food, housing, medical care, and heating? Not hard at all 12/05/2019 PHQ-2 Answer Date Recorded PHQ-2 score 0 04/13/2022 Hunger Vital Sign Answer Date Recorded Within the past 12 months, y ou worried that your food would run out before you got the money to buy more. Never true 12/05/19 20 Within the past 12 months, t he food you bought just didn't last and you didn't have money to get more. Never true 12/05/2019 PRAPARE - Transportation Answer Date Re corded In the past 12 months, has l ack of transportation kept you from medical appointments or from getting medications? No 11/14 In the past 12 months, has l ack of transportation kept you from meetings, work, or from getting things needed for daily living? No 12/05/2019 Area Deprivation Index Answer Date Lam rded National Score (1-100), lower number is lower ri sk 54 04/12/2023 State Score (1-10), lower number is lower risk 3 04/12/2023 Data from: https://www.neighborhoodatlas.medicine.[facility].edu/. Last address used for calculation [address] 04/12/2023 Comments No Sex and Gender Information Value Date Recorded Sex Assigned at Not on file Legal Sex Female 9:40 AM EST Gender Identity Not on file Sexual Orientation Not on file documented as of this encounter Functional Status * Are you deaf or do you have serious difficulty hearing? Answer Date of Assessment Author No 12/06/2019 3:51 PM Anette Werner sa, RN * Are you blind or do you have serious difficulty seeing, even when wearing glasses? Answer Date of Assessment Author No 12/06/2019 3:51 PM Anette Werner sa, RN * Do you have serious difficulty walking or climbing stairs? Answer Date of Assessment Author No 12/06/2019 3:51 PM EDT Anette Alvarenga sa, RN * Do you have difficulty dressing or bathing? Answer Date of Assessment Author No 12/06/2019 3:51 PM EDT Anette Alvarenga sa, RN * Because of a physical, mental, or emotional condition, do you have difficulty doing errands alone such as visiting a doctor's office or shopping? Answer Date of Assessment Author No 12/06/2019 3:51 PM EDT Anette Alvarenga sa, RN documented as of this encounter Mental Status * Because of a physical, mental, or emotional condition, do you have serious difficulty concentrating, remembering, or making decisions? Answer Entry Date Author No 12/06/2019 3:51 PM EDT Anette Alvarenga sa, RN documented in this encounter Plan of Treatment Not on file documented as of this encounter Visit Diagnoses Not on filedocumented in this encounter Care Teams Galvanizing Pot Runner Relationship Specialty Start Date End Date Sean Haines MD [address] [address] PCP - General 08/31/00 documented as of this encounter
--- OUTSIDE RECORDS SUMMARY | 2025-01-17 09:51 | XMS_ITS | Encounter Summary ---
Author Organization [facility] Address [address] [facility] [[email or web address] [address] Care Team Providers Care Graduation Coach Name Role Phone Sean Haines MD Unavailable Sean Haines MD Primary Care Provider [phone] Eliud Weiss DPEricka Unavailable [phone] Ifeanyi Leavitt MD Unavailable [phone] Sandro Trejo MD Unavailable [phone] Jb Li MD Unavailable Encounter Details Date [...] Visit [facility] [address] [place] [address] documented as of this encounter Procedures Procedure Name Priority Date/Time Associated Diagnosis Comments XR HAND 3V PA/LAT/OBL KAYLIE 04/12/2023 12:29 PM EST documented in this encounter Results * XR HAND 3V PA/LAT/OBL KAYLIE (04/12/2023 12:29 PM EST) Anatomical Region Laterality Modality Other 04/12/2023 12:2 9 PM EST Narrative 04/12/2023 1:56 PM EST * * *Final Report* * [...] 1. Osteoarthritis of both hands and wrists. Business Process Manager: PSCB Transcribe Date/Time: Apr 12 2023 1:52P Dictated by : EDITH LAZO MD This examination was interpreted and the report reviewed and electronically signed by: EDITH LAZO MD on Apr 12 2023 1:54PM EST [id number]^SI^ACN Procedure Note Radiology, Radiologist, - 04/12/2023 * [...] 1. Osteoarthritis of both hands and wrists. Business Process Manager: PSCB Transcribe Date/Time: Apr 12 2023 1:52P Dictated by : EDITH LAZO MD This examination was interpreted and the report reviewed and electronically signed by: EDITH LAZO MD on Apr 12 2023 1:54PM EST [id number]^SI^ACN us Generic External Data Provider [facility] Final Result documented in this encounter Visit Diagnoses Not on filedocumented in this encounter Care Teams Graduation Coach Relationship Specialty Start Date End Date Sean Haines MD [address] [place] [address] PCP - [employer] 05/16/21 Sean Haines MD [address] [place] [address] PCP - General Internal Medicine 12/07/22 Eliud Weiss DPM [address] [place] [address] Referring Physician Podiatry 04/20/23 Ifeanyi Leavitt MD [address] [place] [address] Consulting Physician Dermatology 04/26/23 Sandro Trejo MD [address] [place] [address] Consulting Physician Ophthalmology 04/26/23 Jb Li MD [address] [place] [address], [facility] [address], [place] [address] Referring Physician Diagnostic Radiology 05/01/24 Dr Ramirez [facility] Vascular Surgery 11/25/21 documented as of this encounter
--- OUTSIDE RECORDS SUMMARY | 2025-01-17 09:51 | XMS_ITS | Clinical Summary ---
Author Organization [facility] Address [address] [place] [address] Care Team Providers Care Insecticide Mixer Name Role Phone Sean Haines MD Primary Care Provider Allergies Active Allergy Reactions Criticality Noted Date Comments Doxycycline Rash Low 08/11/2017 Sulfa (Sulfonamide Antibiotics) Anaphylaxis High 03/25/2004 rash, trouble breathing Medications L-LYSINE 500MG TABLET takes daily 0 4 Active OCUVITE TABLET takes one per day 0 4 Active triamterene-hyd rochlorothiazid e 37.5-25 mg per capsule Take 1 capsule by mouth once daily. 5 Active zolpidem (AMBIEN) 5 mg tablet Take 1 tablet by mouth daily at bedtime. 5 Active OTC NUTRITIONAL SUPPLEMENT Take 1 tablet by mouth once daily. Allergy medication Active omeprazole (PRILOSEC) 20 mg capsule TAKE 1 CAPSULE BY MOUTH IN THE MORNING BEFORE MEALS. Active methylPREDNISol one (MEDROL) 4 mg Follow schedule on package instructions 3 Active LORazepam (ATIVAN) 0.5 mg Take 0.5 mg by mouth every 8 hours as needed. Active hydrOXYzine HCl (ATARAX) 25 mg tablet Take 25 mg by mouth three times a day as needed. 3 Active fluticasone (FLONASE) 50 mcg/actuation nasal spray USE 2 SPRAYS IN EACH NOSTRIL ONCE DAILY NEEDED 4 Active oxyCODONE-aceta minophen (PERCOCET) 5-325 mg tablet TAKE 1 TABLET BY MOUTH EVERY 6 HOURS NEEDED FOR MODERATE OR SEVERE PAIN FOR UP TO 7 DAYS 4 Active Active Problems Problem Noted Date Diagnosed Date Morbid obesity 04/12/2023 Pain in joint of right shoulder 02/20/2021 Stage 1 breast cancer, ER-, left 11/24/2020 Encounter for screening mammogram for breast can cer 11/24/2020 Abnormality of gait 12/12/2019 Tear of lateral meniscus of left knee 01/06/2018 Overview (01/06/2018): Added automatically from request for surgery [id number] Complex tear of lateral meni scus of left knee as current injury 01/06/2018 Mass of left knee 01/05/2018 Breast asymmetry between ni santiago breast and reconstructed breast 12/02/2017 Overview (12/02/2017): Added automatically from request for surgery [id number] S/P partial mastectomy, right 12/02/2017 Overview (12/02/2017): Added automatically from request for surgery [id number] History of breast cancer 12/02/2017 Overview (12/02/2017): Added automatically from request for surgery [id number] Assessment & Plan (11/26/2019 8:47 AM EDT): Assessment: s/p right part mastectomy and SLNB, chemo and radiation NO BP/IV in right arm Acute medial meniscus tear of left knee 10/14/19 18 Primary osteoarthritis of left knee 10/13/2017 Spider veins of both lower extremities 6 Varicose veins of leg with pain 11/27/2015 Varicose veins of leg with edema 10/28/2015 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 Await return of bowel function to advance diet. Mobilize. Pain controlled with epidural 09/14/12 +flatus, advance diet. Start PO pain medications. D/C epidural in a.m. 09/15/12 Tolerating diet. Epidural d/c'd. Incision c/d/i. Anticipate d/c to home tomorrow. 09/16/12 Pain well controlled. Incision c/d/i. D/C home Assessment & Plan (11/26/2019 8:46 AM EDT): Assessment: s/p repair 2012- last imaging 11/2019- stable Vascular OV 11/2019- stable- follow up in 2 years Hypertension 09/14/2012 Overview (09/15/2012): Home medications- lisinopril 5 mg daily 09/14/2012 Resume home meds. SBP well controlled Assessment & Plan (11/26/2019 8:46 AM EDT): Assessment: controlled BP 129/61 DISPOSITION AND FOLLOW-UP 09/14/2012 Overview (09/18/2012): CM following for d/c meds. PT to evaluate. No needs for home 09/16/12 D/C home Wrist arthritis 11/25/2010 Malignant neoplasm of breast (female), unspecifi ed site 11/09/2007 Cancer Staging:Pathologic stage from 11/27/2007:Stage I(T1b, N0, M0) - Signed by Merary Chaudhary on 11/12/2017 Other plastic surgery for unacceptable cosmetic appearance 07/21/2006 Dysfunction of eustachian tube 11/26/2004 Sensorineural hearing loss, unspecified 11/27/19 05 Unspecified hypertrophic and atrophic condition of skin 03/25/2004 Immunizations Immunization Administration Dates Next Due COVID-19 original vaccine, f ull dose, monovalent (MODERNA) 07/21/2020,06/23/2020 Family History Medical History Relation Comments Heart Father Breast Cancer Maternal Aunt Relation Status Comments Father Maternal Aunt Mother Social History Tobacco Use Types Packs/Day Years Used Date Smoking Tobacco: Never Smokeless Tobacco: Never Tobacco Cessation:Counseling Given: Not Answered Alcohol Use Standard Drinks/Week Comments Yes 0 [...] is lower risk 3 04/12/2023 Data from: https://www.neighborhoodatlas.medicine.[facility].edu/. Last address used for calculation [address] 04/12/2023 Comments No Sex and Gender Information Value Date Recorded Sex Assigned at Not on file Legal Sex Female 9:40 AM EST Gender Identity Not on file Sexual Orientation Not on file Last Filed Vital Signs Vital Sign Reading Time Taken Comments Blood Pressure 130/67 03/19/2024 10:54 AM EST Pulse 89 03/19/2024 10:54 AM EST Temperature 36.8 C (98.2 F) 03/19/2024 10:54 AM EST Respiratory Rate 20 04/16/2022 11:52 AM EST Oxygen Saturation 100% 04/16/2022 11:52 AM EST Inhaled Oxygen Concentration - - Weight 88.5 kg (195 lb) 03/19/2024 10:54 AM EST Height 160 cm (5' 3 ) 03/19/2024 10:54 AM EST Body Mass Index 34.54 03/19/2024 10:54 AM EST Plan of Treatment Health Maintenance Due Date Last Done Comments Annual PCP Team Chronic Dise ase Visit 1968 Anxiety Screening 1968 Depression Screening 1968 Hepatitis C Screening 1968 CT Colonography 1995 Cologuard (FIT-DNA) 1995 Colonoscopy 1995 Colorectal Cancer Screening 1995 Fecal Occult Blood 1995 Sigmoidoscopy 1995 RSV Vaccine (1 - Risk 60-74 years 1-dose series) 2010 DTaP,Tdap,Td Vaccine (1 - Tdap) 11/08/2014 5 Lipid Screening 09/06/2017 09/06/2012 Mammogram Screening 04/19/2024 04/19/2023, 04/19/2023, 04/16/2022, Additional history exists Advance Directive Discussion 05/16/2024 Medicare Advantage Annual We llness Visit 05/16/2024 Diabetes Screening 12/09/2024 12/09/2021, 0 11/24/2020, 12/08/2019, Additional history exists Influenza Vaccine (#1) 2025 , 03/19/2023, 03/12/2022, Additional history exists Pneumococcal Vaccine: 50+ Completed 2018, 03/01/2017, 03/24/2015 Shingrix Vaccine Completed 12/24/2019, 06/2019, 01/08/2013 Bone Density Screening Completed 04/29/2021 Medical Devices Implanted Type Area Riveter Pneumatic Device Identifier Shelf Expiration Date Model / Serial / Lot Cement Simplex P Bone Radiopaque Full Dose Sterile - [id number] Implanted:2019 at [facility] (Quantity not on file) Cement / Putty Left: Bone - Knee [employer] 07/13/2021 [id number] / / [id number] [place] Cv 6x6in Thk1.65mm Ptfe - [id number] Implanted:Qty: 1 on 09/12/2012 at [facility] Implant BARD PERIPHERAL VASC[employer] [id number] / / Insert Persona 6-9 C-D Polyethylene 10mm Articular Posterior Stabilized - [id number] Implanted:2019 at [facility] (Quantity not on file) Joint - Knee Left: Bone - Knee [employer] 06/15/2027 [id number] / / [id number] Component 29mm All Poly Patellar Psn - [id number] Implanted:2019 at [facility] (Quantity not on file) Joint - Knee Left: Bone - Knee [employer] 11/12/2025 [id number] / / [id number] Component Persona 6 Narrow Cocr Femoral Cemented Posterior Stabilize Knee - [id number] Implanted:2019 at [facility] (Quantity not on file) Joint - Knee Left: Bone - Knee [employer] 05/15/2028 [id number] / / [id number] Baseplate Persona 5d D Tivanium Tibial Cemented Stem Knee Left - [id number] Implanted:2019 at [facility] (Quantity not on file) Joint Left: Bone - Knee [employer] 07/13/2029 [id number] / / [id number] Procedures Procedure Name Priority Date/Time Associated Diagnosis Comments JAKE SCREENING W JOE Routine 04/16/2022 11:39 AM EST BASIC METABOLIC PANEL Routine 11/24/2020 10:54 AM EDT Multiple lung nodules on CT LIPID PANEL, FASTING Routine 09/06/2012 10:14 AM EDT Fibromuscular dysplasia Hypertension from Last 3 Months or Most Recently Relevant to Health Maintenance Results * JAKE SCREENING W JOE (04/16/2022 11:39 AM EST) Anatomical Region Laterality Modality Mammography 04/16/2022 11:1 2 AM EST Impressions 04/16/2022 11:39 AM EST IMPRESSION: BENIGN FINDING There is no mammographic evidence of malignancy. A 1 year screening mammogram is recommended. Bernardo garay/silvia:04/16/2022 11:38:26 Hydroponics Worker(s): RT Mario(R)(M)(BS), [facility] letter sent: [...] Health, Family Medicine, and Medical/Surgical Oncology, the [facility] has carefully reviewed the data and [...] their providers when to stop screening mammograms. Gear Lapper: Silvia Transcribe Date/Time: Apr 16 2022 11:12A Dictated by : BERNARDO CUNNINGHAM MD This examination was interpreted and the report reviewed and electronically signed by: BERNARDO CUNNINGHAM MD on Apr 16 2022 11:38AM EST Narrative 04/16/2022 11:39 AM EST * * *Final Report* * * DATE OF EXAM: Apr 16 2022 11:12AM CA [id number] - JAKE SCREENING W JOE / PROCEDURE REASON: Encounter for screening mammogram for breast cancer * * * * Physician Interpretation * * * * RESULT: #[id number] - JAKE SCREENING W JOE BILATERAL DIGITAL [...] to exams dated: 11/24/2020 mammogram - [facility], 11/22/2019 mammogram, 11/14/2018 [facility], 11/11/2017 mammogram, and 11/02/2016 mammogram - [facility]. There are scattered fibroglandular elements in both breasts. The patient is status post lumpectomy right breast. The right breast has post-operative findings. The patient is status post reduction left breast. The left breast has post-operative findings. No significant masses, calcifications, or other findings are seen in either breast. Procedure Note Provider, [facility] - 04/16/2022 * * *Final Report* * * DATE OF EXAM: Apr 16 2022 11:12AM CAW [id number] - [facility] SCREENING W JOE / PROCEDURE REASON: Encounter for screening mammogram for breast cancer * * * * Physician Interpretation * * * * RESULT: #[id number] - [facility] SCREENING W JOE BILATERAL DIGITAL SCREENING MAMMOGRAM [...] to exams dated: 11/24/2020 mammogram - [facility], 11/22/2019 mammogram, 11/14/2018 mammogram - [facility] [place], 11/11/2017 mammogram, and 11/02/2016 mammogram - [facility]. There are scattered fibroglandular elements in both breasts. The patient is status post lumpectomy right breast. The right breast has post-operative findings. The patient is status post reduction left breast. The left breast has post-operative findings. No significant masses, calcifications, or other findings are seen in either breast. IMPRESSION IMPRESSION: BENIGN FINDING There is no mammographic evidence of malignancy. A 1 year screening mammogram is recommended. Bernardo garay/penrad:04/16/2022 11:38:26 Hydroponics Worker(s): RT Maroi(R)(M)(BS), [facility] letter sent: Normal over [...] Health, Family Medicine, and Medical/Surgical Oncology, the [facility] has carefully reviewed the data and [...] their providers when to stop screening mammograms. Gear Lapper: Silvia Transcribe Date/Time: Apr 16 2022 11:12A Dictated by : BERNARDO CUNNINGHAM MD This examination was interpreted and the report reviewed and electronically signed by: BERNARDO CUNNINGHAM MD on Apr 16 2022 11:38AM EST Sharon Rg APRN.APPLICATIONS SYSTEM ANALYST JAKE-PAMA Final Result * (ABNORMAL) BASIC METABOLIC PNL (11/24/2020 10:54 AM EDT) Glucose 111(H) 74 - 99 mg/dL 11/24/2020 11:43 AM EDT [facility] Comment: The [place] Diabetes Association (ADA) provides guidance for cutoff [...] Standards of Medical Care in Diabetes 2016, [place] Diabetes Association. Diabetes Care. 2016.39(Suppl 1). BUN 19 7 - 21 mg/dL 11/24/2020 11:43 AM EDT [facility] Creatinine 1.34(H) 0.58 - 0.96 mg/dL 11/24/2020 11:43 AM EDT [facility] Sodium 138 136 - 144 mmol/L 11/24/2020 11:43 AM EDT [facility] Potassium 4.5 3.7 - 5.1 mmol/L 11/24/2020 11:[address] Chloride 100 97 - 105 mmol/L 11/24/2020 11:43 AM EDT [facility] CO2 28 22 - 30 mmol/L 11/24/2020 11:43 AM [facility] Anion Gap 10 9 - 18 mmol/L 11/24/2020 11:43 AM T [facility] Calcium 9.2 8.5 - 10.2 mg/dL 11/24/2020 11:43 AM [facility] eGFR- 47 11/24/2020 11:43 AM [facility] eGFR-All Other Races 39 . 11/24/2020 11:43 AM [facility] Comment: eGFR (Estimated GFR) Units of measure: [...] eGFR may not accurately reflect actual GFR. Blood BLOOD SPECIMEN / Unknown 11/24/2020 10:54 AM EDT 11/24/2020 10:56 AM EDT us Merary Chaudhary MD LABORATORY Final Result [facility] [address] [place] [address] [facility] [address] [place] [address] * (ABNORMAL) LIPID PANEL BASIC (09/06/2012 10:14 AM EDT) Triglyceride 128 30 - 149 mg/dL [facility] Cholesterol, Total 165 100 - 199 mg/dL [facility] HDL Cholesterol 55(L) >55 mg/dL [facility] VLDL Cholesterol 26 6 - 40 mg/dL [facility] LDL Cholesterol, Calculated 84 60 - 129 mg/dL [facility] Fasting Time 3 hrs [facility] TC:HDL Ratio 3.00 1.00 - 5.00 [facility] LDL:HDL Ratio 1.53 0.50 - 3.55 [facility] Non HDL Cholesterol 110 90 - 159 mg/dL [facility] Blood specimen (specimen) BLOOD SPECIMEN / Unknown 09/06/2012 10:14 AM EDT 09/06/2012 10:16 AM EDT us Sammi Mendoza MD LABORATORY Fin al Result [facility] [address] [place] [address] from Last 3 Months or Most Recently Relevant to Health Maintenance [facility] Advance Directives Documents on File Type Date Recorded Patient Parking Supervisor Expl anation Advance Directive(s) 04/12/2018 2:54 PM Advance Directive(s) 09/18/2012 9:11 PM Care Teams Insecticide Mixer Relationship Specialty Start Date End Date Sean Haines MD [address] [place] [address] PCP - General 08/31/00
--- OUTSIDE RECORDS SUMMARY | 2025-01-17 09:51 | XMS_ITS | Encounter Summary ---
Author Organization [facility] Address [address] [place] [address] Care Team Providers Care Aquaculturist Name Role Phone Sean Haines MD Unavailable [phone] Sean Haines MD Primary Care Provider [phone] Eliud Weiss DPM Unavailable [phone] Ifeanyi Leavitt MD Unavailable [phone] Sandro Trejo MD Unavailable [phone] Jb Li MD Unavailable Encounter Details Date Type Department Care Team (Late st Contact Info) Description 02/29/2024 Orders Only [facility] [address] [facility] [address] [place] [id number] A, Unknown Practice [address] [place], [place] [id number] Social History Tobacco Use Types Packs/Day Years [...] Visit [facility] [address] [facility] [address] [place] [address] documented as of this encounter Procedures Procedure Name Priority Date/Time Associated Diagnosis Comments XR KNEE 4+ VIEWS RIGHT Routine 02/21/2024 4:35 PM EDT documented in this encounter Results * XR knee 4+ views right (02/21/2024 4:35 PM EDT) Anatomical Region Laterality Modality Lower Extremities, Knee Right Radiogra phic Imaging us Unknown Practice A IMG XR PROCEDURES Final Resul t documented in this encounter Visit Diagnoses Not on filedocumented in this encounter Care Teams Aquaculturist Relationship Specialty Start Date End Date Sean Haines MD [address] [facility] [address] [place] [address] PCP - [employer] 05/16/21 Sean Haines MD [address] [facility] [address] [place] [address] PCP - General Internal Medicine 12/07/22 Eliud Weiss DPM [address] [facility] [address] [place] [address] Referring Physician Podiatry 04/20/23 Ifeanyi Leavitt MD [address] [facility] [place] [address] Consulting Physician Dermatology 04/26/23 Sandro Trejo MD [address] [place] [address] Consulting Physician Ophthalmology 04/26/23 Jb Li MD [address] [facility], [place] [address] Referring Physician Diagnostic Radiology 05/01/24 Dr Ramirez [facility] Vascular Surgery 11/25/21 documented as of this encounter
--- OUTSIDE RECORDS SUMMARY | 2025-01-17 09:51 | XMS_ITS | Encounter Summary ---
Author Organization [facility] Address [address] [facility] [place] [address] Care Team Providers Care Software Architect Name Role Phone Sean Haines MD Unavailable [phone] Sean Haines MD Primary Care Provider [phone] Eliud Weiss DPM Unavailable [phone] Ifeanyi Leavitt MD Unavailable [phone] Sandro Trejo MD Unavailable [phone] Jb Li MD Unavailable Encounter Details Date Type Department Care Team (Latest Contact Info) Description 09/26/2024 [facility] [address] [facility] [address] [place] [address] Gi Blandon [place] [address] [facility] [address] [place] [address] Cyclic citrul peptide antibody, IgG, Sedimentation rate, automated, TSH, JESSICA by IFA, Reflex to Titer and Pattern Social History Tobacco Use Types Packs/Day Years [...] [address] [place] [address] documented as of this encounter Visit Diagnoses Not on filedocumented in this encounter Care Teams Software Architect Relationship Specialty Start Date End Date Sean Haines MD [address] [place] [address] PCP - [employer] 05/16/21 Sean Haines MD [address] [place] [address] PCP - General Internal Medicine 12/07/22 Eliud Weiss DPM [address] [place] [address] Referring Physician Podiatry 04/20/23 Ifeanyi Leavitt MD [address] [place] [address] Consulting Physician Dermatology 04/26/23 Sandro Trejo MD [address] [place] [address] Consulting Physician Ophthalmology 04/26/23 Jb Li MD [address] [place] [address], [facility], [place] [address] Referring Physician Diagnostic Radiology 05/01/24 Dr Ramirez [facility] Vascular Surgery 11/25/21 documented as of this encounter
--- OUTSIDE RECORDS SUMMARY | 2025-01-17 09:51 | XMS_ITS | Encounter Summary ---
Author Organization [facility] Address [address] [place] [address] Care Team Providers Care Brainer Name Role Phone Sean Haines MD Primary Care Provider [phone] Sammi Staley MD Unavailable [phone] Source Comments In the event this information is protected by the Federal Confidentiality of Alcohol and Drug AbusePatient Records regulations: The Federal rules restrict any use of the information to criminally investigate or prosecute any alcohol or drug abuse patient.[facility] Reason for Visit * Reason Comments PHOTOS TAKEN Encounter Details Date Type Department Care Team (Late st Contact Info) Description 12/26/2006 Abstract Plastic Surgery [address] [place] [id number] Paco Rodney MD [address] [place] [address] PHOTOS TAKEN Social History Tobacco Use Types Packs/Day Years Used Date Smoking Tobacco: Never Alcohol Use Standard Drinks/Week Comments No 0 (1 standard drink = 0.6 oz pur e alcohol) Comments No Sex and Gender Information Value Date Recorded Sex Assigned at Not on file Legal Sex Female 9:40 AM EST Gender Identity Not on file Sexual Orientation Not on file documented as of this encounter Progress Notes * 12/26/2006 11:59 PM EDT [id number] DATES OF PHOTOS: 01/31/2007 TAKEN WITH LENS: 3-7ft / 105mm x5 FACE POSES: PHOTO INFO: DIAGNOSIS: FACELIFT/NECKLIFT Emily Morel Photo documented in this encounter Plan of Treatment Not on file documented as of this encounter Visit Diagnoses Not on filedocumented in this encounter Care Teams Brainer Relationship Specialty Start Date End Date Sean Haines MD [address] [facility] [address] [place] [address] PCP - General 08/31/00 Sammi Staley MD [address] [place] [address] Primary Staff Physician Cardiology 08/14/14 6 documented as of this encounter
--- OUTSIDE RECORDS SUMMARY | 2025-01-17 09:51 | XMS_ITS | Encounter Summary ---
Author Organization [facility] Address [address] [place] [address] Care Team Providers Care Shop Foreman Name Role Phone Sean Haines MD Unavailable [phone] Sean Haines MD Primary Care Provider [phone] Eliud Weiss DPM Unavailable [phone] Ifeanyi Leavitt MD Unavailable Sandro Trejo MD Unavailable Jb Li MD Unavailable Encounter Details Date Type Department Care Team (Late st Contact Info) Description 04/19/2023 External Result Encounter [facility] External Department Unsolicited Sean Haines MD [address] [place] [address] Social History Tobacco Use Types Packs/Day Years [...] file Not on file Not on file COVID-19 Exposure Response Date Recorded In the last 10 days, have yo u been in contact with someone who was confirmed or suspected to have Coronavirus/COVID-19? No / Unsure 04/19/2023 8:56 PM EST documented as of this encounter Plan of Treatment Upcoming Encounters Date Type Department Care Team (Late st Contact Info) Description 04/30/2025 2:30 PM EST Office Visit [facility] [address] [place] [phone] documented as of this encounter Procedures Procedure Name Priority Date/Time Associated Diagnosis Comments BI MAMMOGRAM SCREENING BILATERAL 04/19/2023 1:32 PM EST documented in this encounter Results * Bilateral screening mammogram (04/19/2023 1:32 PM EST) Anatomical Region Laterality Modality Breast Bilateral Mammography 04/19/2023 1:32 PM EST Impressions 04/20/2023 10:19 AM EST NO MAMMOGRAPHIC EVIDENCE OF MALIGNANCY. ROUTINE FOLLOW-UP [...] Azam Cason M.D.04/19/2023 1:37 PM Dictation Location: [facility] Transcribed By: [facility] 04/19/231336 Dictated By: Azam Cason II, MD 04/19/23 133 Signed By: <Electronically signed by Azam Cason II, MD in OV> 04/19/23 1337 Narrative 04/20/2023 10:19 AM EST [facility] Main [address] [address] Mammography Report Signed Patient: Gilda Shipley MR#: [id number] 0 : 1950 Acct:[id number] Age/Sex: 72 / F ADM Date: 04/19/23 Loc: [place] Room: Type: [facility] Attending Dr: Sean Haines MD Copies to: Sean Haines MD Ordering Provider: Sean Haines MD Date of Service: 04/19/23 MM/MM screening [...] interval change. MM/MM screening mammo BI w/CAD Procedure Note Radiology, Radiologist, - 04/20/2023 [facility] Main Reading [address] [place] [address] Mammography Report Signed Patient: Gilda Shipley DMR#: [id number] 0 : 1Acct:[id number] Age/Sex: 72 / FADM Date: 04/19/23 Loc: [place] Room:Type: [facility] Attending Dr: Sean Haines MD Copies to: Sean Haines MD Ordering Provider: Sean Haines MD Date of Service: 04/19/23 MM/MM screening mammo BI w/CAD: SCREENING CLINICAL DATA: Screening for malignancy. BILATERAL SCREENING MAMMOGRAMS - FULL FIELD DIGITAL WITH TOMOSYNTHESIS ANDCAD Conventional and Tomosynthesis craniocaudal and mediolateral oblique viewsof both breasts were obtained using low-dose digital technique. Comparison is made to priorstudies from 04/16/2022, 11/24/2000, and 11/22/2019. This examination was reviewed with the aid ofCAD. There are scattered fibroglandular densities. There is architecturaldistortion with scarring associated with biopsy clips in the right breast consistent with a historyof infected. Benign-appe aring calcifications are present bilaterally. Surgical clips are alsonoted along the right chest wall consistent with prior axillary lymph node biopsy. There are similarfocal asymmetries. There are no dominant masses, typically malignant calcifications orarchitectural distortion. There has been no significant interval [...] system with a target due date for thenext mammogram. Impression dictated by: Azam Cason M.D.04/19/2023 1:37 PM Dictation Location: [facility] Transcribed By: [facility] 04/19/23 1337 Dictated By: Azam Cason II, MD 04/19/23 1332 Signed By: <Electronically signed by Azam Cason II, MD inOV> 04/19/23 1337 Sean Haines MD IMG BI PROCEDURES Final Result documented in this encounter Visit Diagnoses Not on filedocumented in this encounter Care Teams Shop Foreman Relationship Specialty Start Date End Date Sean Haines MD [address] [place] [address] PCP - [employer] 05/16/21 Sean Haines MD [address] [place] [address] PCP - General Internal Medicine 12/07/22 Eliud Weiss DPM [address] [place] [address] Referring Physician Podiatry 04/20/23 Ifeanyi Leavitt MD [address] [place] [address] Consulting Physician Dermatology 04/26/23 Sandro Trejo MD [address] [place] [address] Consulting Physician Ophthalmology 04/26/23 Jb iL MD [address] [place] [address], [facility] [address], [place] [address] Referring Physician Diagnostic Radiology 05/01/24 Dr Ramirez [facility] Surgery 11/25/21 documented as of this encounter
--- OUTSIDE RECORDS SUMMARY | 2025-01-17 09:51 | XMS_ITS | Encounter Summary ---
Author Organization [facility] Address [facility] [place] [address] Care Team Providers Care Lace Winder Name Role Phone Sean Haines MD Primary Care Provider [phone] Source Comments In the event this information is protected by the Federal Confidentiality of Alcohol and Drug AbusePatient Records regulations: The Federal rules restrict any use of the information to criminally investigate or prosecute any alcohol or drug abuse patient.[facility] Encounter Details Date Type Department Care Team (Late st Contact Info) Description 11/19/2021 Get Medical Advice Hematology/Oncology [address] [place] [address] Sharon Rg APRN.[employer] [address] [facility] [place] [address] Mammogram Social History Tobacco Use Types Packs/Day Years [...] PHQ-2 Answer Date Recorded PHQ-2 score 0 11/21/2020 Hunger Vital Sign Answer Date Recorded Within [...] (1-100), lower number is lower ri sk Not on file 04/21/2020 State Score (1-10), lower number is lower risk N ot on file 04/21/2020 Data from: https://www.neighborhoodatlas.medicine.[facility].edu/. Last address used for calculation Not on file 04/21/2020 Comments No Sex and Gender Information Value Date Recorded Sex Assigned at Not on file Legal Sex Female 9:40 AM EST Gender Identity Not on file Sexual Orientation Not on file COVID-19 Exposure Response Date Recorded In the last 10 days, have yo u been in contact with someone who was confirmed or suspected to have Coronavirus/COVID-19? No / Unsure 11/19/2021 3:27 PM EDT documented as of this encounter Functional Status * Are you deaf or do you have serious difficulty hearing? Answer Date of Assessment Author No 12/06/2019 3:51 PM EDT Anette Alvarenga sa, RN * Are you blind or do you have serious difficulty seeing, even when wearing glasses? Answer Date of Assessment Author No 12/06/2019 3:51 PM EDT Anette Alvaernga sa, RN * Do you have serious [...] Entry Date Author No 12/06/2019 3:51 PM RONDAT Anette Alvarenga sa, RN documented in this encounter Plan of Treatment Not on file documented as of this encounter Visit Diagnoses Not on filedocumented in this encounter Care Teams Lace Winder Relationship Specialty Start Date End Date Sean Haines MD [address] [address] PCP - General 08/31/00 documented as of this encounter
--- OUTSIDE RECORDS SUMMARY | 2025-01-17 09:51 | XMS_ITS | Encounter Summary ---
Author Organization [facility] Address [address] [place] [address] Care Team Providers Care Silver Service Waiter Name Role Phone Gonsalo Hubbard MD Unavailable [phone] Gonsalo Hubbard MD Primary Care Provider [phone] Eliud Weiss DPM Unavailable [phone] Ifeanyi Leavitt MD Unavailable [phone] Sandro Trejo MD Unavailable [phone] Jabari Saenz MD Unavailable Encounter Details Date Type Department Care Team (Late st Contact Info) Description 10/12/2023 Clinisync Result Encounter [facility] External Department Unsolicited [...] Medicine [address] [place] [address] documented as of this encounter Procedures Procedure Name Priority Date/Time Associated Diagnosis Comments VC EXT VENOUS REFLUX KAYLIE LMTD 10/12/2023 3:28 PM EDT documented in this encounter Results * VC EXT VENOUS REFLUX KAYLIE LMTD (10/12/2023 3:28 PM EDT) Anatomical Region Laterality Modality Other 10/12/2023 3:28 PM EDT Narrative 10/12/2023 3:29 PM EDT [address] [address] Vein Report Signed Patient: Jacquelin Shipley MR#: [id number] : 1950 Acct:[id number] Age/Sex: 73 / F ADM Date: 10/12/23 Loc: [facility] Attending Dr: GONSALO HUBBARD Ordering Physician: Jabari Saenz M.D. Date of Service: 10/12/23 Procedure(s): VC EXT Venous Reflux KAYLIE LMTD Accession Number(s): [id number] cc: GONSALO HUBBARD ; Jabari Saenz M.D. Patient Name: JACQUELIN SHIPLEY MR#: [id number] : 1950 Exam Date: 10/12/2023 Ordering Doctor: DR JABARI SAENZ M.D. RADIOLOGY REPORT PROCEDURE: VC EXT VENOUS REFLUX KAYLIE LMTD COMPARISON: None. INDICATIONS: I83.813 Pain due to varicose veins of bilateral legs TECHNIQUE: Duplex imaging of the lower extremity to assess the deep and superficial venous system for the presence of deep or superficial venous incompetence and to document the location and severity of disease. The study includes evaluation of the great saphenous vein (GSV), anterior accessory saphenous vein (AASV) and small saphenous vein (SSV). Patient scanned in reverse Trendelenburg and standing. FINDINGS: RIGHT LOWER EXTREMITY: Saphenofemoral Junction Reflux: Yes 7.9mm 3.0 sec GSV: Diam (mm) Reflux/ Time (sec) Proximal Thigh 9.0 Yes 0.9 Mid Thigh 4.0 Yes 2.5 Distal Thigh N/A Prox Calf N/A Mid Calf N/A Saphenopopliteal Junction Reflux: 5.8mm Yes 0.9 SSV: Proximal Calf 5.9 Yes 0.7 Mid Calf 1.9 Yes 0.4 AASV: Not present Thrombi: No acute or chronic thrombus. Compressibility: Normal. Flow: Mild deep venous reflux. Preforator: Dist/med lower leg 3.2 mm, 0.9s reflux. Prox/med lower leg 3.1 mm, 3.3s reflux. Multiple perfs connected to VV in thigh anterior. Largest 3.9 mm. Tech Note: GSV was previously treated. Incompetent varicose vein medial/anterior knee measures 4.1 mm with 0.6s reflux. Varicose vein medial/anterior/distal thigh measures 4.2 mm with 1.5s reflux. LEFT LOWER EXTREMITY: Saphenofemoral Junction Reflux: Yes 8.4 mm 4.8 sec GSV: Diam (mm) Reflux/Time (sec) Proximal Thigh 8.1 Yes 1.5 Mid Thigh 3.0 Yes 0.5 Distal Thigh 3.2 Yes 0.5 Prox Calf 2.4 Yes 0.9 Mid Calf 2.0 Yes 0.4 Saphenopopliteal Junction Relux: 4.1 mm Yes 0.4 SSV: Proximal Calf 6.0 Yes 0.3 Mid Calf 2.4 No AASV: Proximal Thigh 3.9 Yes 1.7 Mid Thigh 2.3 Yes 0.6 Distal Thigh Thrombi: No acute or chronic thrombus. Compressibility: Normal. Flow: Minimal deep venous reflux. Tier And Detonator: Mid medial lower leg 2.6 mm with 0.7s reflux. Prox anterior lower leg 1.8 mm with 0.4s reflux. Tech Note: Edema noted in proximal anterior lower leg in area of pain. Incompetent varicose vein proximal anterior lower leg measures 3.1 mm with 0.5s reflux. CONCLUSION: 1. Venous insufficiency in the remainder of the proximal right great saphenous vein with no associated varicosities 2. Nvag-nd-tocgvkuv venous insufficiency left great saphenous vein with saphenopopliteal junction reflux and dilatation 3. Gomc-ba-guibfaas reflux left anterior accessory saphenous vein without dilatation 4. Bilateral incompetent varicose veins Dictated by: Jabari Saenz MD on 10/12/2023 at 15:23 Approved by: Jabari Saenz MD on 10/12/2023 at 15:28 Dictated By: Jabari Saenz M.D. Signed By: 10/12/23 1529 DD/ 1528 TD/TT: Senior Front End Developer: Procedure Note Radiology, Radiologist, - 10/12/[address] [address] Vein Report Signed Patient: Jacquelin ShipleyMR#: [id number] : 1950cct:[id number] Age/Sex: 73 / FADM Date: 10/12/23 Loc: [facility] Attending Dr: GONSALO HUBBARD Ordering Physician: Jabari Saenz M.D. Date of Service: 10/12/23 Procedure(s): VC EXT Venous Reflux KAYLIE LMTD Accession Number(s): [id number] cc: GONSALO HUBBARD ; Jabari Saenz M.D. Patient Name: JACQUELIN SHIPLEY MR#: [id number] : 1950 Exam Date: 10/12/2023 Ordering Doctor: DR JABARI SAENZ M.D. RADIOLOGY REPORT PROCEDURE: VC EXT VENOUS REFLUX KAYLIE LMTD COMPARISON: None. INDICATIONS: I83.813 Pain due to varicose veins of bilateral legs TECHNIQUE: Duplex imaging of the lower extremity to assess the deepand superficial venous system for the presence of deep or superficial venous incompetence and to document the location and severity of disease. Thestudy includes evaluation of the great saphenous vein (GSV), anterior accessory saphenous vein (AASV) and small saphenous vein (SSV). Patient scanned in reverse Trendelenburg and standing. FINDINGS: RIGHT LOWER EXTREMITY: Saphenofemoral Junction Reflux: Yes 7.9mm 3.0 sec GSV: Diam (mm) Reflux/ Time (sec) Proximal Thigh 9.0 Yes 0.9 Mid Thigh 4.0 Yes 2.5 Distal Thigh N/A Prox Calf N/A Mid Calf N/A Saphenopopliteal Junction Reflux: 5.8mm Yes 0.9 SSV: Proximal Calf 5.9 Yes 0.7 Mid Calf 1.9 Yes 0.4 AASV: Not present Thrombi: No acute or chronic thrombus. Compressibility: Normal. Flow: Mild deep venous reflux. Preforator: Dist/med lower leg 3.2 mm, 0.9s reflux. Prox/med lower leg 3.1 mm, 3.3s reflux. Multiple perfs connected to VV in thigh anterior. Largest 3.9 mm. Tech Note: GSV was previously treated. Incompetent varicose vein medial/anterior knee measures 4.1 mm with 0.6s reflux. Varicose vein medial/anterior/distal thigh measures 4.2 mm with 1.5s reflux. LEFT LOWER EXTREMITY: Saphenofemoral Junction Reflux: Yes 8.4 mm 4.8 sec GSV: Diam (mm) Reflux/Time (sec) Proximal Thigh 8.1 Yes 1.5 Mid Thigh 3.0 Yes 0.5 Distal Thigh 3.2 Yes 0.5 Prox Calf 2.4 Yes 0.9 Mid Calf 2.0 Yes 0.4 Saphenopopliteal Junction Relux: 4.1 mm Yes 0.4 SSV: Proximal Calf 6.0 Yes 0.3 Mid Calf 2.4 No AASV: Proximal Thigh 3.9 Yes 1.7 Mid Thigh 2.3 Yes 0.6 Distal Thigh Thrombi: No acute or chronic thrombus. Compressibility: Normal. Flow: Minimal deep venous reflux. Tier And Detonator: Mid medial lower leg 2.6 mm with 0.7s reflux. Prox anterior lower leg 1.8mm with 0.4s reflux. Tech Note: Edema noted in proximal anterior lower leg in area of pain. Incompetent varicose vein proximal anterior lower leg measures 3.1 mm with 0.5s reflux. CONCLUSION: 1. Venous insufficiency in the remainder of the proximal right greatsaphenous vein with no associated varicosities 2. Qfgg-gr-rshcwbsg venous insufficiency left great saphenous vein with saphenopopliteal junction reflux and dilatation 3. Tywf-sb-wfyxhibg reflux left anterior accessory saphenous vein without dilatation 4. Bilateral incompetent varicose veins Dictated by: Jabari Saenz MD on 10/12/2023 at 15:23 Approved by: Jabari Saenz MD on 10/12/2023 at 15:28 Dictated By: Jabari Saenz M.D. Signed By:10/12/23 1529 DD/ 1528 TD/TT: Senior Front End Developer: us Generic External Data Provider [facility] Final Result documented in this encounter Visit Diagnoses Not on filedocumented in this encounter Care Teams Silver Service Waiter Relationship Specialty Start Date End Date Gonsalo Hubbard MD [address] [place] [address] PCP - [employer] 05/16/21 Gonsalo Hubbard MD [address] [place] [address] PCP - General Internal Medicine 12/07/22 Eliud Weiss DPM [address] [place] [address] Referring Physician Podiatry 04/20/23 Ifeanyi Leavitt MD [address] [place] [address] Consulting Physician Dermatology 04/26/23 Sandro Trejo MD [address] [place] [address] Consulting Physician Ophthalmology 04/26/23 Jabari Saenz MD [address] [facility], [place] [address] Referring Physician Diagnostic Radiology 05/01/24 Dr Ramirez [facility] 11/25/21 documented as of this encounter
--- OUTSIDE RECORDS SUMMARY | 2025-01-17 09:51 | XMS_ITS | Encounter Summary ---
Author Organization [facility] Address [address] [place] [address] Care Team Providers Care Lime Kiln And Recausticizing Operator Name Role Phone Gonsalo Hubbard MD Unavailable [phone] Gonsalo Hubbard MD Primary Care Provider [phone] Eliud Weiss DPM Unavailable [phone] Ifeanyi Leavitt MD Unavailable [phone] Sandro Trejo MD Unavailable [phone] Jabari Saenz MD Unavailable Encounter Details Date [...] [facility] [address] [place] [address] documented as of this encounter Procedures Procedure Name Priority Date/Time Associated Diagnosis Comments [facility] EST COMPREHENSIVE 10/12/2023 4:36 PM EDT documented in this encounter Results * [facility] COMPRE[facility]ENS[facility] (10/12/2023 4:36 PM EDT) Anatomical Region Laterality Modality Other 10/12/2023 4:36 PM EDT Narrative 10/12/2023 4:37 PM EDT [address] [address] Vein Report Signed Patient: Jacquelin Shipley MR#: [id number] : 1950 Acct:[id number] Age/Sex: 73 / F ADM Date: 10/12/23 Loc: Attending Dr: GONSALO HUBBARD Ordering Physician: Jabari Saenz M.D. Date of Service: 10/12/23 Procedure(s): [facility] Accession Number(s): [id number] cc: GONSALO HUBBARD ; Jabari Saenz M.D. Patient Name: JACQUELIN SHIPLEY MR#: [id number] : 1950 Exam Date: 10/12/2023 Ordering Doctor: DR JABARI SAENZ M.D. RADIOLOGY REPORT PROCEDURE: [facility] - OFFICE VISIT INITIAL COMPARISON: None. PROGRESS NOTES: 72-year-old female who presents with a long history of lower extremity pain swelling and varicose veins going back more than 20 years. [facility] of the right great saphenous vein in 2001 followed by injection sclerotherapy in 2016. The patient reports aching heavy dull pain rating the pain as a 5 on a scale of 1-10. The patient's symptoms are significantly exacerbated by prolonged standing and are only partially relieved by rest, leg elevation, exercise, support stockings which she has worn for many years and over the counter Advil. The patient has had 2 episodes of acute right leg hemorrhage related to razor trauma from pre hemorrhagic veins. The patient denies any signs and symptoms to suggest arterial ischemia. The patient describes a family history significant for hypertension in her mother fluid heart disease in her father. . Fourth grandchildren. Patient's medical history is significant for breast cancer 15 years ago, hypertension, hyperparathyroidism, squamous cell carcinoma. Past surgical history significant for appendectomy, , parathyroidectomy, shoulder surgery, total hysterectomy, left knee replacement. The patient occasionally drinks alcohol. The patient has never smoked. No illicit drug use. No history of deep venous thrombus or pulmonary embolus. See separate history and physical for medication list. The patient has worn compression stockings for 20 years After review of nurse notes, history and physical exam I discussed at length the pathophysiology of venous hypertension and possible treatments, therapies and strategies available. We discussed at length the importance of elevating the lower extremities above the level of the heart, increased physical activity and compression stocking use. We discussed intravenous laser ablation, micro foam chemical ablation and injection sclerotherapy. Risks benefits alternatives were discussed. Surgical interventions including ligation and stripping and phlebectomy were discussed with the patient. The patient's questions were answered. Ultrasound venous reflux study performed the same day was discussed at length with the patient. The report demonstrates mild to moderate left great saphenous vein venous insufficiency. Mild to moderate left anterior accessory saphenous vein venous insufficiency. Bilateral incompetent varicose veins. PHYSICAL EXAM: The right leg demonstrates multiple dilated varicose veins along the anterior and medial thigh, knee and lower leg. Moderate diffuse reticular and spider veins. Scattered pre hemorrhagic veins on the medial and lateral lower leg. Mild hemosiderin staining. No active ulceration. The left leg demonstrates scattered varicose reticular and spider veins. No subcutaneous edema or hemosiderin staining. No active ulceration. Both thighs, legs and feet were symmetrically warm to the touch. Good posterior tibial and dorsalis pedis pulses were present bilaterally. VEIN/VC Facility NEW Comprehensive IMPRESSION: 1. Left great and anterior accessory saphenous vein venous insufficiency with dilatation 2. Bilateral lower extremity varicose veins, right greater than left. Bilateral pre hemorrhagic veins, right greater than left 3. No significant lower extremity subcutaneous edema. Mild hemosiderin staining on the right 4. No flow significant arterial disease 5. CEAP: C4a, Ep, As, Pr PLAN: 1. Possible endovenous laser ablation of the left great saphenous vein followed by left anterior accessory saphenous vein 2. Bilateral micro foam chemical ablation of incompetent varicose veins 3. Injection sclerotherapy bilateral reticular and spider veins 4. Continue long-term use of bilateral near thigh-high 20-30 mm compression stockings 5. Continue leg elevation and physical activity for symptomatic relief Nurse notes, history and physical were reviewed and confirmed, see attached forms. The nurse was present throughout the physical exam and consultation Dictated by: Jabari Saenz MD on 10/12/2023 at 16:18 Approved by: Jabari Saenz MD on 10/12/2023 at 16:36 Dictated By: Jabari Saenz M.D. Signed By: 10/12/23 1637 DD/ 1636 TD/TT: Wood Shop Teacher: Procedure Note Radiology, Radiologist, - 10/12/2023 [place] [address] Vein Report Signed Patient: Jacquelin ShipleyMR#: [id number] : 1950cct:[id number] Age/Sex: 73 / FADM Date: 10/12/23 Loc: Attending Dr: GONSALO HUBBARD Ordering Physician: Jabari Saenz M.D. Date of Service: 10/12/23 Procedure(s): [facility] Accession Number(s): [id number] cc: GONSALO HUBBARD ; Jabari Saenz M.D. Patient Name: JACQUELIN SHIPLEY MR#: [id number] : 1950 Exam Date: 10/12/2023 Ordering Doctor: DR JABARI SAENZ M.D. RADIOLOGY REPORT PROCEDURE: [facility] - OFFICE VISIT INITIAL COMPARISON: None. PROGRESS NOTES: 72-year-old female who presents with a long history of lower extremitypain swelling and varicose veins going back more than 20 years. [facility] of the right great saphenous vein in 2001 followed by injection sclerotherapy in 2016. The patient reports aching heavy dull pain rating the pain as a 5on a scale of 1-10. The patient's symptoms are significantly exacerbated by prolonged standing and are only partially relieved by rest, leg elevation, exercise, support stockings which she has worn for many years and over the counter Advil. The patient has had 2 episodes of acute right leghemorrhage related to razor trauma from pre hemorrhagic veins. The patient deniesany signs and symptoms to suggest arterial ischemia. The patient describes a family history significant for hypertension in her mother fluid heart disease in her father. . Fourth grandchildren. Patient's medical history is significant for breast cancer 15 years ago, hypertension, hyperparathyroidism, squamous cell carcinoma. Past surgical history significant for appendectomy, , parathyroidectomy,shoulder surgery, total hysterectomy, left knee replacement. The patientoccasionally drinks alcohol. The patient has never smoked. No illicit drug use. No history of deep venous thrombus or pulmonary embolus. See separate history and physical for medication list. The patient hasworn compression stockings for 20 years After review of nurse notes, history and physical exam I discussed atlength the pathophysiology of venous hypertension and possible treatments,therapies and strategies available. We discussed at length the importance ofelevating the lower extremities above the level of the heart, increased physical activity and compression stocking use. We discussed intravenous laser ablation, micro foam chemical ablation and injection sclerotherapy. Risks benefits alternatives were discussed. Surgical interventions including ligation and stripping and phlebectomy were discussed with the patient.The patient's questions were answered. Ultrasound venous reflux study performed the same day was discussed atlength with the patient. The report demonstrates mild to moderate left great saphenous vein venous insufficiency. Mild to moderate left anterioraccessory saphenous vein venous insufficiency. Bilateral incompetent varicoseveins. PHYSICAL EXAM: The right leg demonstrates multiple dilated varicose veins along theanterior and medial thigh, knee and lower leg. Moderate diffuse reticular andspider veins. Scattered pre hemorrhagic veins on the medial and lateral lowerleg. Mild hemosiderin staining. No active ulceration. The left leg demonstrates scattered varicose reticular and spider veins.No subcutaneous edema or hemosiderin staining. No active ulceration. Both thighs, legs and feet were symmetrically warm to the touch. Good posterior tibial and dorsalis pedis pulses were present bilaterally. VEIN/VC Facility NEW Comprehensive IMPRESSION: 1. Left great and anterior accessory saphenous vein venous insufficiencywith dilatation 2. Bilateral lower extremity varicose veins, right greater than left. Bilateral pre hemorrhagic veins, right greater than left 3. No significant lower extremity subcutaneous edema. Mild hemosiderin staining on the right 4. No flow significant arterial disease 5. CEAP: C4a, Ep, As, Pr PLAN: 1. Possible endovenous laser ablation of the left great saphenous vein followed by left anterior accessory saphenous vein 2. Bilateral micro foam chemical ablation of incompetent varicose veins 3. Injection sclerotherapy bilateral reticular and spider veins 4. Continue long-term use of bilateral near thigh-high 20-30 mmcompression stockings 5. Continue leg elevation and physical activity for symptomatic relief Nurse notes, history and physical were reviewed and confirmed, seeattached forms. The nurse was present throughout the physical exam and consultation Dictated by: Jabari Saenz MD on 10/12/2023 at 16:18 Approved by: Jabari Saenz MD on 10/12/2023 at 16:36 Dictated By: Jabari Saenz M.D. Signed By:10/12/237 DD/ 35 TD/TT: Wood Shop Teacher: us Generic External Data Provider [facility] Final Result documented in this encounter Visit Diagnoses Not on filedocumented in this encounter Care Teams Lime Kiln And Recausticizing Operator Relationship Specialty Start Date End Date Gonsalo Hubbard MD [address] [facility] [address] [place] [address] PCP - [employer] 05/16/21 Gonsalo Hubbard MD [address] [facility] [address] [place] [address] PCP - General Internal Medicine 12/07/22 Eliud Weiss DPM [address] [facility] [address] [place] [address] Referring Physician Podiatry 04/20/23 Ifeanyi Leavitt MD [address] [place] [address] Consulting Physician Dermatology 04/26/23 Sandro Trejo MD [address] [place] [address] Consulting Physician Ophthalmology 04/26/23 Jabari Saenz MD [address] [place] [address], [facility] [address], [place] [address] Referring Physician Diagnostic Radiology 05/01/24 Dr Ramirez [facility] Vascular Surgery 11/25/21 documented as of this encounter
--- OUTSIDE RECORDS SUMMARY | 2025-01-17 09:51 | XMS_ITS | Encounter Summary ---
Author Organization [facility] Address [address] [place] [address] Care Team Providers Care Transmission Design Engineer Name Role Phone Sean Haines MD Primary Care Provider [phone] Sammi Staley MD Unavailable [phone] Source Comments In the event this information is protected by the Federal Confidentiality of Alcohol and Drug AbusePatient Records regulations: The Federal rules restrict any use of the information to criminally investigate or prosecute any alcohol or drug abuse patient.[facility] Reason for Visit * Reason Comments PHOTOS TAKEN Encounter Details Date Type Department Care Team (Late st Contact Info) Description 09/06/2007 Abstract Plastic Surgery [address] [place], [place] [id number] Paco Rodney MD [address] [place] [address] PHOTOS TAKEN Social History Tobacco Use [...] on filedocumented in this encounter Care Teams Transmission Design Engineer Relationship Specialty Start Date End Date Sean Haines MD [address] [place] [address] PCP - General 08/31/00 Sammi Staley MD [address] [place] [address] Primary Staff Physician Cardiology 08/14/14 6 documented as of this encounter
--- OUTSIDE RECORDS SUMMARY | 2025-01-17 09:51 | XMS_ITS | Encounter Summary ---
Author Organization [facility] Address [address] [place] [address] Care Team Providers Care Gear Lapper Name Role Phone Sean Haines MD Primary Care Provider [phone] Source Comments In the event this information is protected by the Federal Confidentiality of Alcohol and Drug AbusePatient Records regulations: The Federal rules restrict any use of the information to criminally investigate or prosecute any alcohol or drug abuse patient.[facility] Encounter Details Date Type Department Care Team (Late st Contact Info) Description 01/02/2018 Patient Msg Pre Anesthesia [address] [place] [address] Provider, [facility] PACC APPT Social History Tobacco Use Types Packs/Day Years Used Date Smoking Tobacco: Never Smokeless Tobacco: Never Alcohol Use Standard Drinks/Week Comments Yes 0 (1 standard drink = 0.6 oz pure alcohol) occasional A GLASS OF WINE EVERY NIGHT BEFORE BED Comments No Sex and Gender Information Value [...] on filedocumented in this encounter Care Teams Gear Lapper Relationship Specialty Start Date End Date Sean Haines MD [address] [address] PCP - General 08/31/00 documented as of this encounter
--- OUTSIDE RECORDS SUMMARY | 2025-01-17 09:51 | XMS_ITS | Encounter Summary ---
Author Organization [facility] Address [address] [facility] [place] [address] Care Team Providers Care Boat Wrapper Name Role Phone Sean Haines MD Unavailable [phone] Sean Haines MD Primary Care Provider [phone] Eliud Weiss DPM Unavailable [phone] Ifeanyi Leavitt MD Unavailable [phone] Sandro Trejo MD Unavailable [phone] Jb Li MD Unavailable Encounter Details Date Type Department Care Team (Late st Contact Info) Description 09/05/2024 External Result Encounter [facility] External Department Unsolicited WorkGi fairchild PA [address] [facility] [place] [address] Social History Tobacco Use Types Packs/Day Years [...] [facility] [address] [place] [address] documented as of this encounter Procedures Procedure Name Priority Date/Time Associated Diagnosis Comments BI MAMMOGRAM SCREENING TOMOSYNTHESIS BILATERAL 09/05/2024 11:25 AM EDT documented in this encounter Results * Bilateral screening mammogram with tomosynthesis [...] Trey Gutierrez M.D.09/05/2024 11:26 AM Dictation Location: [facility] Dictated By: Trey Gutierrez DO 09/05/24 1125 Signed By: <Electronically signed by Trey Gutierrez DO in OV> 09/05/24 1126 Narrative 09/05/2024 12:42 PM EDT [facility] [address] [place] [address] [address] [place] [address] Mammography Report Signed Patient: Gilda Shipley MR#: [id number] : 1950 Acct:[id number] Age/Sex: 74 / F Adm Date: 09/05/24 Loc: [place] Room: Type: [facility] Attending Dr: Gi Blandon PA-C Ordering Provider: Gi Blandon PA-C Date of Service: 09/05/24 Procedure(s): MM screening mammo BI w/CAD Accession Number(s): ([id number] MM/MM screening mammo BI w/CAD: SCREENING Copies [...] mammo BI w/CAD Procedure Note Radiology, Radiologist, MD - 09/05/2024 [place] [address] Mammography Report Signed Patient: Gilda Shipley DMR#: [id number] : 1950cct:[id number] Age/Sex: 74 / FAdm Date: 09/05/24 Loc: [place] Room:Type: [facility] Attending Dr: Gi Blandon PA-C Ordering Provider: Gi Blandon PA-C Date of Service: 09/05/24 Procedure(s): MM screening mammo BI w/CAD Accession Number(s): ([id number] MM/MM screening mammo BI w/CAD:SCREENING Copies to: [...] Trey Gutierrez M.D.09/05/2024 11:26 AM Dictation Location: [facility] Dictated By: Trey Gutierrez DO 09/05/24 1125 Signed By: <Electronically signed by Trey Gutierrez DO in OV> 09/05/24 1126 Gi [facility] BI PROCEDURES Final Resu lt documented in this encounter Visit Diagnoses Not on filedocumented in this encounter Care Teams Boat Wrapper Relationship Specialty Start Date End Date Sean Haines MD [address] [facility] [address] [place] [address] PCP - [employer] 05/16/21 Sean Haines MD [address] [facility] [address] [place] [address] PCP - General Internal Medicine 12/07/22 Eliud Weiss DPM [address] [facility] [address] [place] [address] Referring Physician Podiatry 04/20/23 Ifeanyi Leavitt MD [address] [place] [address] Consulting Physician Dermatology 04/26/23 Sandro Trejo MD [address] [place] [address] Consulting Physician Ophthalmology 04/26/23 Jb Li MD [address] [facility] [address], [place] [address] Referring Physician Diagnostic Radiology 05/01/24 Dr Ramirez [facility] 11/25/21 documented as of this encounter
--- OUTSIDE RECORDS SUMMARY | 2025-01-17 09:51 | XMS_ITS | Encounter Summary ---
Author Organization [facility] Address [address] [place] [address] Care Team Providers Care Sign Letterer Name Role Phone Sean Haines MD Primary Care Provider [phone] Sammi Staley MD Unavailable [phone] Source Comments In the event this information is protected by the Federal Confidentiality of Alcohol and Drug AbusePatient Records regulations: The Federal rules restrict any use of the information to criminally investigate or prosecute any alcohol or drug abuse patient.[facility] Reason for Visit * Reason Comments PHOTOS TAKEN Encounter Details Date Type Department Care Team (Late st Contact Info) Description 07/21/2006 Abstract Plastic Surgery [address] [place], [place] [id number] Paco Rodney MD [address] [place] [address] PHOTOS TAKEN Social History Tobacco Use [...] as of this encounter Progress Notes * 07/21/2006 3:23 PM EST [id number] DATES OF PHOTOS: 07/20/2006 TAKEN WITH LENS: 3-7ft / 105mm x5 FACE POSES: PHOTO INFO: DIAGNOSIS: FACELIFT BROOKE SOT documented in this encounter Plan of Treatment Not on file documented as of this encounter Visit Diagnoses Not on filedocumented in this encounter Care Teams Sign Letterer Relationship Specialty Start Date End Date Sean Haines MD [address] [facility] [address] [place] [address] PCP - General 08/31/00 Sammi Staley MD [address] [place] [address] Primary Staff Physician Cardiology 08/14/14 6 documented as of this encounter
--- OUTSIDE RECORDS SUMMARY | 2025-01-17 09:51 | XMS_ITS | Encounter Summary ---
Author Organization [facility] Address [address] [place] [address] Care Team Providers Care Chin Strap Maker Name Role Phone Sean Haines MD Primary Care Provider [phone] Sammi Staley MD Unavailable [phone] Source Comments In the event this information is protected by the Federal Confidentiality of Alcohol and Drug AbusePatient Records regulations: The Federal rules restrict any use of the information to criminally investigate or prosecute any alcohol or drug abuse patient.[facility] Reason for Visit * Reason Comments PHOTOS TAKEN Encounter Details Date Type Department Care Team (Late st Contact Info) Description 11/28/2006 Abstract Plastic Surgery [address] [place], [place] [phone] Paco Rodney MD [address] [place] [address] PHOTOS TAKEN Social History Tobacco Use [...] as of this encounter Progress Notes * 11/28/2006 11:59 PM EDT [id number] DATES OF PHOTOS: 11/28/2006 TAKEN WITH LENS: 3-7ft / 105mm x5 FACE POSES: PHOTO INFO: DIAGNOSIS: FACELIFT Emily Shoakin Photo documented in this encounter Plan of Treatment Not on file documented as of this encounter Visit Diagnoses Not on filedocumented in this encounter Care Teams Chin Strap Maker Relationship Specialty Start Date End Date Sean Haines MD [address] [address] PCP - General 08/31/00 Sammi Staley MD [address] [place] [address] Primary Staff Physician Cardiology 08/14/14 6 documented as of this encounter
--- OUTSIDE RECORDS SUMMARY | 2025-01-17 09:51 | XMS_ITS | Encounter Summary ---
Author Organization [facility] Address [address] [facility] [place] [place] [address] Care Team Providers Care Grant Coordinator Name Role Phone Sean Haines MD Unavailable [phone] Sean Haines MD Primary Care Provider [phone] Eliud Weiss DPEricka Unavailable Ifeanyi Leavitt MD Unavailable [phone] Sandro Trejo MD Unavailable [phone] Jb Li MD Unavailable Encounter Details Date Type Department Care Team (Latest Contact Info) Description 01/07/2025 Travel Social History Tobacco Use Types Packs/Day Years [...] Visit GABRIEL [facility] [address] [facility] [address] [place] [address] documented as of this encounter Visit Diagnoses Not on filedocumented in this encounter Care Teams Grant Coordinator Relationship Specialty Start Date End Date Sean Haines MD [address] [place] [address] PCP - [employer] 05/16/21 Sean Haines MD [address] [place] [address] PCP - General Internal Medicine 12/07/22 Eliud Weiss DPM [address] [place] [address] Referring Physician Podiatry 04/20/23 Ifeanyi Leavitt MD [address] [place] [address] Consulting Physician Dermatology 04/26/23 Sandro Trejo MD [address] [place] [address] Consulting Physician Ophthalmology 04/26/23 Jb Li MD [address] [facility] [address], [place] [address] Referring Physician Diagnostic Radiology 05/01/24 Dr Ramirez [facility] 11/25/21 documented as of this encounter
--- OUTSIDE RECORDS SUMMARY | 2025-01-17 09:52 | XMS_ITS | Encounter Summary ---
Author Organization [facility] Address [facility] [place] [address] Care Team Providers Care Community Resource Consultant Name Role Phone Sean Haines MD Primary Care Provider [phone] Sammi Staley MD Unavailable [phone] Source Comments In the event this information is protected by the Federal Confidentiality of Alcohol and Drug AbusePatient Records regulations: The Federal rules restrict any use of the information to criminally investigate or prosecute any alcohol or drug abuse patient.[facility] Encounter Details Date Type Department Care Team (Late st Contact Info) Description 10/04/2007 Patient Msg Medical Records [address] [place] [address] Provider, [facility] Patient Registration Social History Tobacco [...] on filedocumented in this encounter Care Teams Community Resource Consultant Relationship Specialty Start Date End Date Sean Haines MD [address] [facility] [address] [place] [address] PCP - General 08/31/00 Sammi Staley MD [address] [place] [address] Primary Staff Physician Cardiology 08/14/14 6 documented as of this encounter
--- OUTSIDE RECORDS SUMMARY | 2025-01-17 09:52 | XMS_ITS | Encounter Summary ---
Author Organization [facility] Address [facility] [place] [address] Care Team Providers Care Pomology Teacher Name Role Phone Sean Haines MD Primary Care Provider [phone] Sammi Staley MD Unavailable [phone] Source Comments In the event this information is protected by the Federal Confidentiality of Alcohol and Drug AbusePatient Records regulations: The Federal rules restrict any use of the information to criminally investigate or prosecute any alcohol or drug abuse patient.[facility] Encounter Details Date Type Department Care Team (Late st Contact Info) Description 10/05/2007 Patient Msg Medical Records [address] [place] [address] Provider, [facility] RE: Patient Registration Completed Social [...] on filedocumented in this encounter Care Teams Pomology Teacher Relationship Specialty Start Date End Date Sean Haines MD [address] [place] [address] PCP - General 08/31/00 Sammi Staley MD [address] [place] [id number] Primary Staff Physician Cardiology 08/14/14 6 documented as of this encounter
--- OUTSIDE RECORDS SUMMARY | 2025-01-17 09:56 | XMS_ITS | CCD ---
Author Organization [facility] Inform ion Partnership [facility] Care Team Providers Care Sonogram Technician Name Role Phone Gonsalo Hubbard MD Primary [...] Gonsalo Hubbard MD Primary Care Provider Abhishek DPM, Eliud R Unavailable [phone] Dagmar JACK, Ifeanyi Unavailable [phone] Maya JACK, Sandro Gamez Unavailable Gonsalo Hubbard MD Primary Care Provider MD Gonsalo Hubbard Primary Care Provider RUPERT Lundberg Emergency Provider [phone] GONSALO HUBBARD Primary Care Unavailable DELFIN SEARS Attending Unavailable GONSALO HUBBARD Primary Care Unavailable KAYLA MATA Referring Unavailable KAYLA MATA Attending Unavailable KAYLA MATA Referring Unavailable GONSALO HUBBARD Primary Care Unavailable Jb Li MD Unavailable Gonsalo Hubbard MD Primary Care Provider Gi Blandon PA-C Attending Provider Gonsalo Hubbard Primary Care Unavailable Gi Blandon Admitting Unavailable Gi Blandon Attending Unavailable Gonsalo Hubbard Primary Care Unavailable Gonsalo Hubbard Attending Unavailable Gonsalo Hubbard Admitting Unavailable Gonsalo Hubbard Primary Care Unavailable Myriam Bermudez Admitting Unavailable Myriam Bermudez Attending Unavailable Gonsalo Hubbard Primary Care Unavailable Juan Lundberg Admitting Unavailable Juan Lundberg Attending Gonsalo Banks MD Primary Care Provider [phone] Chelsey Denton DNP Attending Provider Donya Ortiz RD Attending Provider Unavailable WORKMAN, SUMMER M Attending Unavailable ZANA FUCHS Attending Unavailable WORKMAN, SUMMER M Attending Unavailable WORKMAN, SUMMER M Referring Unavailable WORKMAN, SUMMER M Attending Unavailable GONSALO HUBBARD Referring Unavailable CARRIE BLANCO Attending Unavailable WORKMAN, SUMMER M Referring Unavailable WORKMAN, SUMMER M Attending Unavailable MYRIAM BERMUDEZ R Attending Unavailable GONSALO HUBBARD Referring Unavailable MYRIAM BERMUDEZ R Attending Unavailable Allergies Allergy Classification Reported Allergen(s) Allergy Type Date of Onset Reaction(s) Facility (20 sources) Doxycycline; Translations: [DOXYCYCLINE] Drug Allergy 08-12-19 18 Rash [facility] Work Phone: (20 sources) Sulfonamides (Antibiotic); Translations: [SULFA (SULFONAMIDE ANTIBIOTICS)] Drug Allergy 03-25-20 04 Anaphylaxis, Unknown [facility] (20 sources) Angiotensin-conver ting enzyme inhibitor agent Drug Allergy 11-30-19 23 Angioedema [facility] (20 sources) Nitrofurantoin Drug Allergy 11-30-19 23 GI intolerance [facility] (17 sources) Acetaminophen / oxyCODONE Drug Allergy 03-20-20 Hallucinations [facility] (1 source) Doxycycline Drug Allergy 02-21-20 [facility] (1 source) Sulfonamides (Antibiotic) Drug allergy (disorder) 02-21-20 [facility] Medications Current Medications Medication Drug Class(es) Dates Sig (Normalized) Sig (Original) acetaminophen 325 mg / oxyCODONE hydrochloride 5 mg oral tablet (5 sources) Opioid Agonist Start: 01-07-2025 End: 01-14-2025 take 1 tablet by mouth every six hours for pain oxyCODONE-acetami nophen (Percocet) 5-325 MG tablet Indications: Acute pain of right knee , History of fall , Swelling of right knee Take 1 tablet by mouth every 6 (six) hours if needed for moderate pain or severe pain for up to 7 days 28 tablet 01/07/2025 01/14/2025 Active Start: 02-28-2024 End: 03-06-2024 take 1 tablet by mouth every six hours as needed for pain oxyCODONE-acetaminophen (PERCOCET) 5-325 mg tablet TAKE 1 TABLET [...] / zinc oxide 40 mg oral tablet (20 sources) Vitamin C take 1 tablet by mouth once daily Multiple Vitamin (Multivitamin Adult) tablet Take 1 tablet by mouth 1 (one) time each day. Active Ascorbic Acid / Beta Carotene / cuprous oxide / Lutein / sodium selenate / Vitamin E / Zinc Oxide (12 sources) Vitamin C Start: 03-25-20 04 OCUVITE TABLET takes one per day 0 03/25/2004 Active Comment on above: takes one per day ascorbic acid 60 mg / cuprous oxide 2 mg / dl-alpha tocopheryl acetate 30 mg / lutein 6 mg / zinc oxide 15 mg oral capsule (7 sources) Vitamin C Start: 04-14-20 12 take 1 capsule by mouth in the morning eye vitamin supplement (Ocuvite Eye Health Formula) capsule Take 1 capsule by mouth in the morning. 04/14/2012 Active bifidobacterium infantis 4 mg oral capsule (2 sources) End: 06-30-19 24 take 1 capsule by mouth once daily Probiotic Product (Align) capsule Take 1 capsule by mouth 1 (one) time each day at the same time. 0 06/30/2023 Discontinued (Other) citalopram 10 mg oral tablet (20 sources) Serotonin Reuptake Inhibitor Start: 07-26-19 25 take 1 tablet by mouth once daily citalopram (CeleXA) 10 MG tablet Indications: Mild major depression Take 1 tablet (10 mg) by mouth 1 (one) time each day at the same time 90 tablet 3 07/25/2024 Active Start: 01-01-2018 End: 03-19-2024 take 1 tablet by mouth once daily Comment on above: Take 10 mg by mouth once daily. eye vitamin supplement (Ocuvite Eye Health Formula) capsule (16 sources) Start: 04-14-2012 take 1 capsule by mouth in the morning eye vitamin supplement (Ocuvite Eye Health Formula) capsule Take 1 capsule by mouth in the morning. 04/14/2012 Active Start: 04-14-2012 take 1 capsule by mo uth in the morning eye vitamin supplement (Ocuvite Eye Health Formula) capsule Take 1 capsule by mouth in the morning. 0 04/14/2012 Active fluticasone propionate 0.05 mg/actuat metered dose nasal spray (20 sources) Corticosteroid Start: 09-21-2023 take 2 spray(s) nasal route once daily as needed fluticasone (Flonase) 50 MCG/ACT nasal spray Indications: Seasonal allergic rhinitis, unspecified trigger USE 2 SPRAYS IN EACH NOSTRIL ONCE DAILY NEEDED 48 g 3 09/21/2023 Active Start: 09-21-2023 take 2 spray(s) nasa l route once daily as needed fluticasone (FLONASE) 50 mcg/actuation nasal spray USE 2 SPRAYS IN EACH NOSTRIL ONCE DAILY NEEDED 09/21/2023 Active Start: 02-28-2023 take 2 spray(s) nasa l route once daily as needed fluticasone (Flonase) 50 MCG/ACT nasal spray Indications: Seasonal allergic rhinitis, unspecified trigger USE 2 SPRAYS IN EACH NOSTRIL ONCE DAILY NEEDED 48 g 3 02/28/2023 Active hydroCHLOROthiazide 25 mg / triamterene 37.5 mg oral capsule (20 sources) Potassium-sparing Diuretic, Thiazide Diuretic Start: 03-25-2023 take 1 capsule by mouth in the morning triamterene-hydroCHLOROthiazide (Dyazide) 37.5-25 MG capsule Indications: Essential hypertension (CMS/HCC) Take 1 capsule by mouth in the morning. 90 capsule 3 03/25/2023 Active Start: 09-12-2014 take 1 capsule by mouth once daily in the morning triamterene-hydroCHLOROthiazide (Dyazide ) 37.5-25 MG capsule Indications: Essential hypertension TAKE 1 CAPSULE BY MOUTH EVERY MORNING 90 capsule 3 03/09/2024 Active Comment on above: Take 1 capsule by mo uth once daily. hydrOXYzine hydrochloride 25 mg oral tablet (1 source) Antihistamine Start: 023 take 1 tablet by mouth every eight hours as needed hydrOXYzine HCl (ATARAX) 25 mg tablet Take 25 mg by mouth three times a day as needed. 07/01/2022 Active levocetirizine dihydrochloride 5 mg oral tablet (20 sources) Histamine-1 Receptor Antagonist take 1 tablet by mouth once daily levocetirizine (Xyzal) 5 MG tablet Take 5 mg by mouth 1 (one) time each day at the same time. Active LORazepam 0.5 mg oral tablet (20 sources) Benzodiazepine Start: 025 take 1 tablet by mouth once daily as needed Start: 04-26-2023 End: 11-24-2024 take 1 tablet by mouth every eight hours for anxiety LORazepam (Ativan) 0.5 MG tablet Indications: SIOBHAN (generalized anxiety disorder) Take 1 tablet (0.5 mg) by mouth every 8 (eight) hours if needed for anxiety 90 tablet 10/25/2024 Active lysine 500 mg oral tablet (16 sources) Start: 03-25-2004 take 1 tablet by mouth once daily Comment on above: takes daily MISC NATURAL PRODUCTS PO (20 sources) MISC NATURAL PRODUCTS PO Take 1 each by mouth if needed. CBD Gummies Active MISC NATURAL PRO DUCTS PO Take 1 each by mouth if needed. CBD Gummies 0 Active Tp-Mf-Cbjk-Tqwpx-Guh-Dly-Hc1 24 (Airborne (Ascorbate Sodium)) 333-1.7 mg tablet,chewable (2 sources) Start: 12-06-2024 Start: 12-06-2024 Aq-Rh-Evfg-Asb lm-Gbf-Rix-Hc124 (Airborne (Ascorbate Sodium)) 333-1.7 mg tablet,chewable Active TAB PO December 06, 2024 12:00am Complies with drug therapy omeprazole 20 mg delayed release oral capsule (20 sources) Proton Pump Inhibitor Start: 04-06-2024 take 1 capsule by mouth once daily Start: 03-25-2023 take 1 capsule by mo uth before mealtime omeprazole (PriLOSEC) [address] capsule Indications: Gastroesophageal reflux disease without esophagitis Take 1 capsule (20 mg) by mouth in the morning. Take before meals. 90 capsule 3 03/25/2023 Active OTC NUTRITIONAL SUPPLEMENT (12 sources) take 1 tablet by twyla th once daily OTC NUTRITIONAL SUPPLEMENT Take 1 tablet by mouth once daily. Allergy medication Active take 1 tablet by mouth once guillermo y OTC NUTRITIONAL SUPPLEMENT Take 1 tablet by mouth once daily. Allergy medication 0 Active Comment on above: Take 1 tablet by twyla th once daily. Allergy medication Probiotic Product (ALIGN EXTRA STRENGTH PO) (7 sources) take 1 tablet by mouth once daily Probiotic Product (ALIGN EXTRA STRENGTH PO) Take 1 tablet by mouth Daily Active Probiotic Product (ALIGN PO) (16 sources) End: take 1 capsule by mouth once daily Probiotic Product (ALIGN PO) Take 1 capsule by mouth Daily 09/20/2024 Discontinued take 1 capsule by mouth once conor ly Probiotic Product (ALIGN PO) Take 1 capsule by mouth Daily Active Semaglutide/NAM/MeCbl 0.3 mg /0.25 mL (2 sources) Start: 12-06-2024 Start: 12-06-2024 Semaglutide/NA M/MeCbl 0.3 mg/0.25 mL Active 0.25 ML SUBCUT every week 1 December 06, 2024 12:00am [facility] Pre-filled Syringes using Semaglutide Base 0.3 mg/Niacinamide 0.25 mg and Methylcobalamin 1 mcg Dispense 1 mL - (Four 0.25 mL pre-filled syringes) Complies with drug therapy Vit C-Vit E-Sdxsmr-Ldx-Om-3 (Ocuvite) 236-22-7-150 ok-njxe-vd-mg Capsule (4 sources) Start: 01-01-2018 take 1 capsule by [facility] once daily Start: 01-01-2018 take 1 capsule by [facility] once daily Vit C-Vit P-Glzbmp-Wor-Om-3 (Ocuvite) 372-96-7-150 kh-wlim-ru-mg Capsule Active 1 CAP PO Daily January 01, 2018 12:00am Complies with drug therapy Start: 01-01-2018 take 1 capsule by [facility] once daily Vit C-Vit C-Zqhfbt-Ach-Om-3 (Ocuvite) 418-17-9-150 yn-zmny-ve-mg Capsule Active 1 CAP PO Daily January 01, 2018 12:00am zolpidem tartrate 5 mg oral tablet (20 sources) gamma-Aminobutyric Acid-ergic Agonist Start: 09-25-2014 End: 10-25-2024 take 1 tablet by mouth once daily at bedtime as needed Comment on above: Take 1 tablet by twyla th daily at bedtime. Completed/Discontinued Medications Medication Drug Class(es) Dates Sig (Normalized) Sig (Original) [id number] 200 actuat albuterol 0.09 mg/actuat metered dose inhaler (4 sources) beta2-Adrenergic Agonist Start: 01-01-2018 End: 01-01-2018 take 1 puff(s) by inhalation every four to six hours as needed for wheezing Albuterol Sulfate (Ventolin Hfa) 90 mcg/actuation Hfa Aerosol Inhaler Discontinued 2 PUFF INHALATION EVERY 4-6 HOURS as needed for Shortness Of Breath Or Wheezing January 01, 2018 12:00am January 01, 2018 [...] by out 1 hour before dental procedure aspirin [...] 1 tablet by twyla th twice daily. azithromycin 250 mg oral tablet (5 sources) Macrolide Antimicrobial Start: 10-01-2024 End: 01-07-2025 azithromycin (Zithromax) 250 MG tablet Indications: Acute cough , Bronchitis Take 1 tablet (250 mg) by mouth Daily Take 2 tabs on day 1 and 1 tab on days 2-5 then stop 6 tablet 10/01/2024 01/07/2025 Discontinued (Other) docusate sodium 100 mg oral capsule (12 sources) Start: 12-06-2019 End: 03-19-2024 take 1 capsule by mouth every twelve hours as needed docusate sodium (COLACE) 100 mg capsule Take 1 capsule by mouth twice daily as needed for Constipation. 60 capsule 12/06/2019 03/19/2024 Discontinued Comment on above: Take 1 capsule by [facility] twice daily as needed for Constipation. fexofenadine hydrochloride 180 mg oral tablet (4 sources) Histamine-1 Receptor Antagonist Start: 01-01-2018 End: 12-06-2024 take 1 tablet by mouth once daily Fexofenadine (Lotus Allergy) 180 mg Tablet Discontinued 180 MG PO Daily January 01, 2018 12:00am December 06, 2024 1:16pm Lidocaine (2 sources) Antiarrhythmic, Amide Local Anesthetic Start: 03-19-2024 End: 03-19-2024 lidocaine 10 mg/mL (1 %) 15 mg injection (XYLOCAINE) Start: 03-19-2024 End: 03-19-2024 15 mg (1.5 mL), OTHER, ONCE, 1 dose, On 03/19/24 at 1500 methylPREDNISolone (8 sources) Corticosteroid Start: 09-20-2024 End: 01-07-2025 methylPREDNISolone (Medrol Dospak) 4 MG tablets Indications: Primary osteoarthritis involving multiple joints Take as directed on package. 21 tablet 09/20/2024 01/07/2025 Discontinued (Other) Start: 09-20-2024 methylPREDNISo lone (Medrol Dospak) 4 MG tablets Indications: Primary osteoarthritis involving multiple joints Take as directed on package. 21 tablet 09/20/2024 Active Start: 07-01-2022 methylPREDNISo lone (MEDROL) 4 mg Follow schedule on package instructions 07/01/2022 Active potassium chloride 20 meq extended release oral tablet (9 sources) Start: 11-21-2021 End: 12-06-2024 take 1 tablet by mouth twice daily Potassium Chloride (K-Tab) 20 mEq tablet extended release Discontinued 20 MEQ PO Twice daily November 21, 2021 12:00am December 06, 2024 1:17pm End: 03-19-2024 take 1 tablet by mouth twice daily potassium chloride (K-TAB) 10 mEq tablet Take 10 mEq by mouth twice daily. 03/19/2024 Discontinued Comment on above: Take 10 mEq by mouth twice daily. triamcinolone acetonide 10 mg/ml injectable suspension (2 sources) Corticosteroid Start: 03-19-2024 End: 03-19-2024 triamcinolone acetonide 20 mg injection (KeNALog 10) Start: 03-19-2024 End: 03-19-2024 20 mg, INTRALESIONAL, ONCE, 1 dose, On 03/19/24 at 1500 Problems Active Problems Problem Classification Problem Date Documented Date Episodic/Chronic Acquired foot deformities (20 sources) Hammer toe; Translations: [Other hammer toe(s) (acquired), right foot] Onset: 11-29-2022 11-29-2022 Chronic Anxiety disorders (20 sources) Generalized anxiety disorder; Translations: [Generalized anxiety disorder] Onset: 11-29-2022 11-29-2022 Chronic Aortic; peripheral; and visceral artery aneurysms (20 sources) Aneurysm of renal artery; Translations: [Aneurysm of renal artery] Onset: 09-14-2012 05-11-2021 Chronic Cancer of breast (20 sources) Malignant neoplasm of female breast; Translations: [Malignant neoplasm of unspecified site of unspecified female breast] Onset: 11-09-2007 11-12-2017 Chronic Comment on above: RIGHT Chronic kidney disease (20 sources) Chronic kidney disease, unspecified; Translations: [Chronic kidney disease stage 3A ] Onset: 12-15-2021 11-29-2022 Chronic Chronic obstructive pulmonary disease and bronchiectasis (2 sources) Bronchitis; Translations: [Bronchitis, not specified as acute or chronic] 10-01-2024 Episodic Diverticulosis and diverticulitis (20 sources) Diverticular disease; Translations: [Diverticulosis of intestine, part unspecified, without perforation or abscess without bleeding] Onset: 11-29-2022 11-29-2022 Chronic Esophageal disorders (20 sources) Gastroesophageal reflux disease; Translations: [Gastro-esophageal reflux disease without esophagitis] Onset: 11-29-2022 11-29-2022 Chronic Essential hypertension (20 sources) Hypertensive disorder; Translations: [Essential (primary) hypertension] Onset: 09-14-2012 11-29-2022 Chronic Fluid and electrolyte disorders (4 sources) Hypokalemia; Translations: [Hypokalemia] 11-21-2021 Episodic Genitourinary symptoms and ill-defined conditions (2 sources) Urinary incontinence; Translations: [Unspecified urinary incontinence] 12-06-2024 Chronic Hypertension with complications and secondary hypertension (1 source) Hypertensive chronic kidney disease with stage 1 through stage 4 chronic kidney disease, or unspecified chronic kidney disease; Translations: [Hypertensive chronic kidney disease w stg 1-4/unsp chr kdny] Onset: 12-15-2021 Chronic Malaise and fatigue (2 sources) Fatigue; Translations: [Other fatigue] 09-20-2024 Episodic Menopausal disorders (2 sources) Disorder associated with menstruation AND/OR menopause; Translations: [Menopausal and female climacteric states] 05-01-2024 Chronic Miscellaneous mental health disorders (3 sources) Primary insomnia; Translations: [Primary insomnia] 04-30-2024 Chronic Mood disorders (20 sources) Mild major depression; Translations: [Major depressive disorder, single episode, mild] Onset: 11-29-2022 11-29-2022 Chronic Nutritional deficiencies (20 sources) Vitamin D deficiency; Translations: [Vitamin D [...] Episodic Other ear and sense organ disorders (20 sources) Sensorineural hearing loss; Translations: [Unspecified sensorineural hearing loss] Onset: 11-26-2004 11-26-2004 Chronic Other ear and sense organ disorders (3 sources) Impacted cerumen in right ear; Translations: [Impacted cerumen, right ear] 05-07-2024 Episodic Other endocrine disorders (1 source) Primary hyperparathyroidism; Translations: [Primary hyperparathyroidism] Onset: 12-15-2021 Chronic Other endocrine disorders (20 sources) Primary hyperparathyroidism; Translations: [Primary hyperparathyroidism] Onset: 09-10-2015 04-26-2023 Chronic Other injuries and conditions due to external causes (4 sources) Contusion; Translations: [Other injury of unspecified body region, initial encounter] 02-21-2024 Episodic Other injuries and conditions due to external causes (4 sources) History of fall; Translations: [History of falling] 01-07-2025 Episodic Other lower respiratory disease (2 sources) Cough; Translations: [Cough, unspecified type] 06-30-2023 Episodic Other lower respiratory disease (2 sources) Cough; Translations: [Acute cough] 10-01-2024 Episodic Other non-traumatic joint disorders (3 sources) Pain in right knee; Translations: [Pain in joint, lower leg] Onset: 02-21-2024 01-07-2025 Episodic Other non-traumatic joint disorders (4 sources) Swollen knee region; Translations: [Effusion, right knee] 01-07-2025 Episodic Other nutritional; endocrine; and metabolic disorders (1 source) Obesity, unspecified; Translations: [Obesity, unspecified] Onset: 01-12-2022 Chronic Other nutritional; endocrine; and metabolic disorders (1 source) Body mass index (BMI) 33.0-33.9, adult; Translations: [Body mass index [BMI] 33.0-33.9, adult] Onset: 01-12-2022 Chronic Other nutritional; endocrine; and metabolic disorders (20 sources) Morbid obesity; Translations: [Morbid (severe) obesity due to excess calories] Onset: 11-29-2022 06-30-2023 Chronic Other nutritional; endocrine; and metabolic disorders (4 sources) Obese class II; Translations: [Class 2 obesity] 12-06-2024 Chronic Other nutritional; endocrine; and metabolic disorders (4 sources) Body mass index 30+ - obesity; Translations: [Body mass index (BMI) 36.0-36.9, adult] 12-06-2024 Chronic Other nutritional; endocrine; and metabolic disorders (4 sources) Abnormal weight gain; Translations: [Abnormal weight gain] 12-06-2024 Episodic Other screening for suspected conditions (not mental disorders or infectious disease) (20 sources) Patient encounter status; Translations: [Encounter for screening mammogram for malignant neoplasm of breast] Onset: 07-21-2006 11-24-2020 Episodic Other upper respiratory disease (20 sources) Seasonal allergic rhinitis; Translations: [Other seasonal allergic rhinitis] Onset: 11-29-2022 11-29-2022 Chronic Other upper respiratory infections (2 sources) Viral upper respiratory tract infection; Translations: [Acute upper respiratory infection, unspecified] 06-30-2023 Episodic Residual codes; unclassified (1 source) Pain; Translations: [Pain, unspecified] 04-12-2023 Episodic Residual codes; unclassified (2 sources) Edema of lower extremity; Translations: [Localized edema] 12-06-2024 Episodic Unclassified (12 sources) DISPOSITION AND FOLLOW-UP Onset: 09-14-2012 05-11-2021 Unclassified (1 source) Personal history of COVID-19; Translations: [Personal history of COVID-19] Onset: 01-12-2022 Viral infection (1 source) COVID-19; Translations: [COVID-19] Onset: 12-15-2021 Past or Other Problems Problem Classification Problem Date Documented Da te Episodic/Chronic Allergic reactions (20 sources) Allergy status to sulfonamides status; Translations: [Allergy status to other antibiotic agents status] Onset: 12-15-2021 11-29-2022 Episodic Cancer of breast (20 sources) History of malignant neoplasm of breast; Translations: [Personal history of malignant neoplasm of breast] Onset: 12-02-2017 12-02-2017 Episodic Genitourinary symptoms and ill-defined conditions (1 source) Dysuria; Translations: [Dysuria] Onset: 04-17-2024 Episodic Joint disorders and dislocations; trauma-related (20 sources) Acute tear of medial meniscus of left knee; Translations: [Other tear of medial meniscus, current injury, left knee, initial encounter] Onset: 10-13-2017 Resolved: 04-26-2023 10-27-2017 Episodic Nonmalignant breast conditions (12 sources) Breasts asymmetrical; Translations: [Disproportion of reconstructed breast] Onset: 12-02-2017 12-02-2017 Episodic Other aftercare (1 source) 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; Translations: [Other retirement (current) drug therapy] Onset: 01-12-2022 Episodic Other [...] Episodic Other diseases of veins and lymphatics (20 sources) Peripheral venous insufficiency; Translations: [Venous insufficiency [...] in right shoulder] Onset: 01-21-2022 Episodic Other skin disorders (12 sources) Disorder [...] Onset: 11-26-2004 11-26-2004 Episodic Residual codes; unclassified (20 sources) History of right mastectomy; Translations: [Acquired [...] contraindication] Onset: 12-15-2021 Episodic Residual codes; unclassified (20 sources) Insomnia; Translations: [Insomnia, unspecified] Onset: 11-29-2022 06-30-2023 Episodic Residual codes; unclassified (1 source) Pain, unspecified; Translations: [Pain] Onset: 04-12-2023 Episodic Sprains and strains (2 sources) Strain of muscle, fascia and tendon of other parts of biceps, right arm, initial encounter; Translations: [Strain of musc/fasc/tend prt biceps, right arm, init] Onset: 01-12-2022 Episodic Superficial injury; contusion (8 sources) Right lower leg contusion; Translations: [Contusion of right lower leg, initial encounter] Onset: 02-21-2024 02-28-2024 Episodic Unclassified (2 sources) Acute pain of right knee 01-07-2025 Varicose veins of lower extremity (20 sources) Varicose veins of lower limb co-occurrent with edema; Translations: [Varicose veins of unspecified lower extremity with other complications] Onset: 10-28-2015 10-28-2015 Episodic Results Test Name Value Interpretation Reference Range Facility MM screening mammo BI w/CADo n 09-05-2024 MM screening mammo BI w/CAD [facility] [address] [place] [address] Mammography Report Signed Patient: Gilda Sorto MR#: [id number] : 1950 Acct:[id number] Age/Sex: 74 / F Adm Date: 09/05/24 Loc: [place] Room: Type: [facility] Attending Dr: Gi Blandon PA-C Ordering Provider: Gi Blandon PA-C Date of Service: 09/05/24 Procedure(s): MM screening mammo BI w/CAD Accession Number(s): ([id number]) MM/MM screening mammo BI w/CAD: SCREENING Copies [...] Trey Gutierrez M.D.09/05/2024 11:26 AM Dictation Location: [facility] Dictated By: Trey Gutierrez DO 09/05/241124 Signed By: 09/05/24 1126 Normal [facility] Mammography reportOrdered By : Trey Gutierrez on 09-05-2024 Diagnostic imaging study [facility] [address] [place], [place] [id number] Mammography Report Signed Patient: Gilda Sorto MR#: [id number] : 1950 Acct:[id number] Age/Sex: 74 / F Adm Date: 5 Loc: [place] Room: Type: [facility] Attending Dr: Gi Blandon PA-C Ordering Provider: Gi Blandon PA-C Date of Service: 09/05/24 Procedure(s): MM screening mammo BI w/CAD Accession Number(s): ([id number]) MM/MM screening mammo BI w/CAD: SCREENING Copies to: MD Gi Sandoval PA-C~ BILATERAL Screening Full Field digital mammogram with [...] Trey Gutierrez M.D.09/05/2024 11:26 AM Dictation Location: [id number] Dictated By: Trey uGtierrez DO 09/05/241124 Signed By: 09/05/24 1126 [facility] CBC W Auto Differential pane l (Bld)on 04-23-2024 Basophils (Bld) [#/Vol] 0 10*3/uL 0.0 - 0.2 10*3/uL [facility] Basophils/100 WBC Manual cnt (Syn fld) 0.8 % . [facility] Eosinophils (Bld) [#/Vol] 0.3 10*3/uL 0.0 - 0.45 10*3/uL [facility] Eosinophils/100 WBC Manual cnt (Syn fld) 5.2 % . [facility] Erythrocyte distribution width (RBC) [Ratio] 14.2 % 11.9 - 15.3 % [facility] Hematocrit (Bld) [Volume fraction] 37 % 34.0 - 46.4 % [facility] Hemoglobin (Bld) [Mass/Vol] 12.3 g/dL 11.8 - 15.4 g/dL [facility] Lymphocytes (Bld) [#/Vol] 1.1 10*3/uL 1.00 - 4.8 10*3/uL [facility] Lymphocytes/100 WBC Manual cnt (Syn fld) 20.2 % . [facility] MCH (RBC) [Entitic mass] 29.7 pg 24.7 - 34.3 pg [facility] MCHC (RBC) [Mass/Vol] 33.1 g/dL 32.0 - 35.0 g/dL [facility] MCV (RBC) [Entitic vol] 89.8 fL 80 - 100 fL [facility] Monocytes (Bld) [#/Vol] 0.4 10*3/uL 0.0 - 0.8 10*3/uL [facility] Monocytes+Macrophage s/100 WBC Manual cnt (Syn fld) 6.8 % . [facility] Neutrophils (Bld) [#/Vol] 3.6 10*3/uL 1.8 - 7.7 10*3/uL [facility] Neutrophils/100 WBC Manual cnt (Syn fld) 67 % . [facility] NRBC 0.1 /100{WBC} 0 - 0.5 /100{WBC} [facility] Platelet mean volume (Bld) [Entitic vol] 7.9 fL 6.3 - 10.7 fL [facility] Platelets (Bld) [#/Vol] 269 10*3/uL 150 - 450 10*3/uL [facility] RBC LM.HPF (Urine sed) [#/Area] 4.13 10*6/uL 3.60 - 5.00 10*6/uL [facility] WBC (Bld) [#/Vol] 5.4 10*3/uL 3.8 - 11.6 10*3/uL [facility] WBC LM.HPF (Urine sed) [#/Area] 5.4 10*3/uL 3.8 - 11.6 10*3/uL [facility] FASTING.JKW [facility] Complete Blood Count Auto Di ffon 04-23-2024 Basophils (Bld) [#/Vol] 0.0 10*3/uL Normal 0.0-0.2 [facility] Comment on above: Order Comment: FASTI NG.JKW Result Comment: PERF ORMED BY: [place] [address] PATHOLOGIST CRYOGENICS ENGINEER DIAN SHAH M.D. Performed By: #### L IPID, [id number], ADDONUAPLUS, PHOS, PTH, CMP, CBC, URMACRERAT #### [address] Basophils/100 WBC (Bld) 0.8 % Normal . [facility] Comment on above: Order Comment: FASTI NG.JKW Performed By: #### L IPID, [id number], ADDONUAPLUS, PHOS, PTH, CMP, CBC, URMACRERAT #### [address] Eosinophils (Bld) [#/Vol] 0.3 10*3/uL Normal 0.0-0.45 [facility] Comment on above: Order Comment: FASTI NG.JKW Performed By: #### L IPID, [id number], ADDONUAPLUS, PHOS, PTH, CMP, CBC, URMACRERAT #### [address] Eosinophils/100 WBC (Bld) 5.2 % Normal . [facility] Comment on above: Order Comment: FASTI NG.JKW Performed By: #### L IPID, [id number], ADDONUAPLUS, PHOS, PTH, CMP, CBC, URMACRERAT #### [address] Erythrocyte distribution width (RBC) [Ratio] 14.2 % Normal 11.9-15.3 [facility] Comment on above: Order Comment: FASTI NG.JKW Performed By: #### L IPID, [id number], ADDONUAPLUS, PHOS, PTH, CMP, CBC, URMACRERAT #### [address] Hematocrit (Bld) [Volume fraction] 37.0 % Normal 34.0-46.4 [facility] Comment on above: Order Comment: FASTI NG.JKW Performed By: #### L IPID, [id number], ADDONUAPLUS, PHOS, PTH, CMP, CBC, URMACRERAT #### [address] Hemoglobin (Bld) [Mass/Vol] 12.3 g/dL Normal 11.8-15.4 [facility] Comment on above: Order Comment: FASTI NG.JKW Performed By: #### L IPID, [id number], ADDONUAPLUS, PHOS, PTH, CMP, CBC, URMACRERAT #### [address] Lymphocytes (Bld) [#/Vol] 1.1 10*3/uL Normal 1.00-4.8 [facility] Comment on above: Order Comment: FASTI NG.JKW Performed By: #### L IPID, [id number], ADDONUAPLUS, PHOS, PTH, CMP, CBC, URMACRERAT #### [address] Lymphocytes/100 WBC (Bld) 20.2 % Normal . [facility] Comment on above: Order Comment: FASTI NG.JKW Performed By: #### L IPID, [id number], ADDONUAPLUS, PHOS, PTH, CMP, CBC, URMACRERAT #### [address] MCH (RBC) [Entitic mass] 29.7 pg Normal 24.7-34.3 [facility] Comment on above: Order Comment: FASTI NG.JKW Performed By: #### L IPID, [id number], ADDONUAPLUS, PHOS, PTH, CMP, CBC, URMACRERAT #### [address] MCV (RBC) [Entitic vol] 89.8 fL Normal 80-100 [facility] Comment on above: Order Comment: FASTI NG.JKW Performed By: #### L IPID, [id number], ADDONUAPLUS, PHOS, PTH, CMP, CBC, URMACRERAT #### [address] Mean Corpuscular HGB Conc 33.1 g/dL Normal 32.0-35.0 [facility] Comment on above: Order Comment: FASTI NG.JKW Performed By: #### L IPID, [id number], ADDONUAPLUS, PHOS, PTH, CMP, CBC, URMACRERAT #### [address] Monocytes (Bld) [#/Vol] 0.4 10*3/uL Normal 0.0-0.8 [facility] Comment on above: Order Comment: FASTI NG.JKW Performed By: #### L IPID, [id number], ADDONUAPLUS, PHOS, PTH, CMP, CBC, URMACRERAT #### [address] Monocytes/100 WBC (Bld) 6.8 % Normal . [facility] Comment on above: Order Comment: FASTI NG.JKW Performed By: #### L IPID, [id number], ADDONUAPLUS, PHOS, PTH, CMP, CBC, URMACRERAT #### [address] Neutrophils (Bld) [#/Vol] 3.6 10*3/uL Normal 1.8-7.7 [facility] Comment on above: Order Comment: FASTI NG.JKW Performed By: #### L IPID, [id number], ADDONUAPLUS, PHOS, PTH, CMP, CBC, URMACRERAT #### [address] Neutrophils/100 WBC (Bld) 67.0 % Normal . [facility] Comment on above: Order Comment: FASTI NG.JKW Performed By: #### L IPID, [id number], ADDONUAPLUS, PHOS, PTH, CMP, CBC, URMACRERAT #### [address] NRBC% 0.1 /100{WBC} Normal 0-0.5 [facility] Comment on above: Order Comment: FASTI NG.JKW Performed By: #### L IPID, [id number], ADDONUAPLUS, PHOS, PTH, CMP, CBC, URMACRERAT #### [address] Platelet mean volume (Bld) [Entitic vol] 7.9 fL Normal 6.3-10.7 [facility] Comment on above: Order Comment: FASTI NG.JKW Performed By: #### L IPID, [id number], ADDONUAPLUS, PHOS, PTH, CMP, CBC, URMACRERAT #### [place] [address] [place] Platelets (Bld) [#/Vol] 269 10*3/uL Normal 150-450 [facility] Comment on above: Order Comment: FASTI NG.JKW Performed By: #### L IPID, [id number], ADDONUAPLUS, PHOS, PTH, CMP, CBC, URMACRERAT #### [address] RBC (Bld) [#/Vol] 4.13 10*6/uL Normal 3.60-5.00 [facility] Comment on above: Order Comment: FASTI NG.JKW Performed By: #### L IPID, [id number], ADDONUAPLUS, PHOS, PTH, CMP, CBC, URMACRERAT #### [address] WBC (Bld) [#/Vol] 5.4 10*3/uL Normal 3.8-11.6 [facility] Comment on above: Order Comment: FASTI NG.JKW Performed By: #### L IPID, [id number], ADDONUAPLUS, PHOS, PTH, CMP, CBC, URMACRERAT #### [address] Comprehensive Metabolic Pane [facility] 04-23-2024 Albumin [Mass/Vol] 3.8 g/dL Normal 3.5-5.7 [facility] Comment on above: Order Comment: FASTI NG.JKW Performed By: #### L IPID, [id number], ADDONUAPLUS, PHOS, PTH, CMP, CBC, URMACRERAT #### [address] Albumin/Globulin [Mass ratio] 1.4 {ratio} Normal [facility] Comment on above: Order Comment: FASTI NG.JKW Performed By: #### L IPID, [id number], ADDONUAPLUS, PHOS, PTH, CMP, CBC, URMACRERAT #### [address] ALP [Catalytic activity/Vol] 81 U/L Normal 34-104 [facility] Comment on above: Order Comment: FASTI NG.JKW Performed By: #### L IPID, [id number], ADDONUAPLUS, PHOS, PTH, CMP, CBC, URMACRERAT #### [address] ALT [Catalytic activity/Vol] 17 U/L Normal 7-52 [facility] Comment on above: Order Comment: FASTI NG.JKW Performed By: #### L IPID, [id number], ADDONUAPLUS, PHOS, PTH, CMP, CBC, URMACRERAT #### [address] Anion gap [Moles/Vol] 10.6 mmol/L Normal 6.0-15.0 [facility] Comment on above: Order Comment: FASTI NG.JKW Performed By: #### L IPID, [id number], ADDONUAPLUS, PHOS, PTH, CMP, CBC, URMACRERAT #### [address] AST [Catalytic activity/Vol] 22 U/L Normal 13-39 [facility] Comment on above: Order Comment: FASTI NG.JKW Performed By: #### L IPID, [id number], ADDONUAPLUS, PHOS, PTH, CMP, CBC, URMACRERAT #### [address] Bilirubin [Mass/Vol] 0.6 mg/dL Normal 0.3-1.0 [facility] Comment on above: Order Comment: FASTI NG.JKW Performed By: #### L IPID, [id number], ADDONUAPLUS, PHOS, PTH, CMP, CBC, URMACRERAT #### [address] Calcium [Mass/Vol] 9.0 mg/dL Normal 8.6-10.3 [facility] Comment on above: Order Comment: FASTI NG.JKW Performed By: #### L IPID, [id number], ADDONUAPLUS, PHOS, PTH, CMP, CBC, URMACRERAT #### [address] Chloride [Moles/Vol] 105 mmol/L Normal 98-107 [facility] Comment on above: Order Comment: FASTI NG.JKW Performed By: #### L IPID, [id number], ADDONUAPLUS, PHOS, PTH, CMP, CBC, URMACRERAT #### [address] CO2 [Moles/Vol] 28.7 mmol/L Normal 21.0-31.0 [facility] Comment on above: Order Comment: FASTI NG.JKW Performed By: #### L IPID, [id number], ADDONUAPLUS, PHOS, PTH, CMP, CBC, URMACRERAT #### [address] Creatinine [Mass/Vol] 1.32 mg/dL High 0.60-1.20 [facility] Comment on above: Order Comment: FASTI NG.JKW Performed By: #### L IPID, [id number], ADDONUAPLUS, PHOS, PTH, CMP, CBC, URMACRERAT #### [address] Estimated GFR 42.631 mL/Min Normal [facility] Comment on above: Order Comment: FASTI NG.JKW Performed By: #### L IPID, [id number], ADDONUAPLUS, PHOS, PTH, CMP, CBC, URMACRERAT #### [address] Globulin (S) [Mass/Vol] 2.7 g/dL Normal [facility] Comment on above: Order Comment: FASTI NG.JKW Performed By: #### L IPID, [id number], ADDONUAPLUS, PHOS, PTH, CMP, CBC, URMACRERAT #### [address] Glucose [Mass/Vol] 101 mg/dL High 70-100 [facility] Comment on above: Order Comment: FASTI NG.JKW Result Comment: [place] Glucose Reference Range is dependent on time and content of last meal. Glucose of more than 200 mg/dL in a nonstressed, ambulatory subject supports the diagnosis of Diabetes Mellitus. ADA recommended reference range Performed By: #### L IPID, [id number], ADDONUAPLUS, PHOS, PTH, CMP, CBC, URMACRERAT #### [address] Potassium [Moles/Vol] 4.3 mmol/L Normal 3.5-5.1 [facility] Comment on above: Order Comment: FASTI NG.JKW Performed By: #### L IPID, [id number], ADDONUAPLUS, PHOS, PTH, CMP, CBC, URMACRERAT #### [address] Protein [Mass/Vol] 6.5 g/dL Normal 6.4-8.9 [facility] Comment on above: Order Comment: FASTI NG.JKW Performed By: #### L IPID, [id number], ADDONUAPLUS, PHOS, PTH, CMP, CBC, URMACRERAT #### [address] Sodium [Moles/Vol] 140 mmol/L Normal 136-145 [facility] Comment on above: Order Comment: FASTI NG.JKW Performed By: #### L IPID, [id number], ADDONUAPLUS, PHOS, PTH, CMP, CBC, URMACRERAT #### [address] Urea nitrogen [Mass/Vol] 21 mg/dL Normal 7-25 [facility] Comment on above: Order Comment: FASTI NG.JKW Performed By: #### L IPID, [id number], ADDONUAPLUS, PHOS, PTH, CMP, CBC, URMACRERAT #### [place] [address] [place] Dipstick and Microscopicon 1 06-24-2023 Appearance (U) Clear Normal Clear [facility] Comment on above: Order Comment: FASTI NG.JKW Name Collection Type:: Clean-Voided Midstream Performed By: #### L IPID, [id number], ADDONUAPLUS, PHOS, PTH, CMP, CBC, URMACRERAT #### [address] [place] [address] [place] Bacteria,Urine None Seen Normal None Seen [facility] Comment on above: Order Comment: DENG CASTRO.PatrickKW Name Collection Type:: Clean-Voided Midstream Performed By: #### L IPID, [id number], ADDONUAPLUS, PHOS, PTH, CMP, CBC, URMACRERAT #### [address] Bilirubin,Urine Negative Normal Negative [facility] Comment on above: Order Comment: FASTI GLORIA.JKW Name Collection Type:: Clean-Voided Midstream Performed By: #### L IPID, [id number], ADDONUAPLUS, PHOS, PTH, CMP, CBC, URMACRERAT #### [address] Color (U) Yellow Normal Yellow [facility] Comment on above: Order Comment: DENG CASTRO.JKW Name Collection Type:: Clean-Voided Midstream Performed By: #### L IPID, [id number], ADDONUAPLUS, PHOS, PTH, CMP, CBC, URMACRERAT #### [place] [address] [place] Glucose Ql (U) Normal Normal Normal [facility] Comment on above: Order Comment: DENG CASTRO.JKW Name Collection Type:: Clean-Voided Midstream Performed By: #### L IPID, [id number], ADDONUAPLUS, PHOS, PTH, CMP, CBC, URMACRERAT #### [place] [address] [place] Hyaline Casts,Urine None Normal 0-8 [facility] Comment on above: Order Comment: FASTI GLORIA.JKW Name Collection Type:: Clean-Voided Midstream Performed By: #### L IPID, [id number], ADDONUAPLUS, PHOS, PTH, CMP, CBC, URMACRERAT #### [place] [address] [place] Ketones Ql (U) Negative Normal Negative [facility] Comment on above: Order Comment: FASTI GLORIA.JKW Name Collection Type:: Clean-Voided Midstream Performed By: #### L IPID, [id number], ADDONUAPLUS, PHOS, PTH, CMP, CBC, URMACRERAT #### [address] Leukocyte esterase Test strip Ql (U) Negative Normal Negative [facility] Comment on above: Order Comment: FASTI NG.JKW Name Collection Type:: Clean-Voided Midstream Performed By: #### L IPID, [id number], ADDONUAPLUS, PHOS, PTH, CMP, CBC, URMACRERAT #### [address] Mucus,Urine Rare Normal [facility] Comment on above: Order Comment: DENG CASTRO.JKW Name Collection Type:: Clean-Voided Midstream Result Comment: PERF ORMED BY: [place] [address] PATHOLOGIST CRYOGENICS ENGINEER DIAN SHAH M.D. Performed By: #### L IPID, [id number], ADDONUAPLUS, PHOS, PTH, CMP, CBC, URMACRERAT #### [address] Nitrite,Urine Negative Normal Negative [facility] Comment on above: Order Comment: NAEEMI GLORIA.JKW Name Collection Type:: Clean-Voided Midstream Performed By: #### L IPID, [id number], ADDONUAPLUS, PHOS, PTH, CMP, CBC, URMACRERAT #### [address] Occult Blood,Urine Negative Normal Negative [facility] Comment on above: Order Comment: FASTI NG.JKW Name Collection Type:: Clean-Voided Midstream Performed By: #### L IPID, [id number], ADDONUAPLUS, PHOS, PTH, CMP, CBC, URMACRERAT #### [address] pH (U) 6.0 [pH] Normal 5.0-9.0 [facility] Comment on above: Order Comment: NAEEMI GLORIA.JKW Name Collection Type:: Clean-Voided Midstream Performed By: #### L IPID, [id number], ADDONUAPLUS, PHOS, PTH, CMP, CBC, URMACRERAT #### [address] Protein,Urine Negative Normal Negative [facility] Comment on above: Order Comment: FASTI NG.JKW Name Collection Type:: Clean-Voided Midstream Performed By: #### L IPID, [id number], ADDONUAPLUS, PHOS, PTH, CMP, CBC, URMACRERAT #### [address] RBC,Urine 1 [HPF] Normal 0-4 [facility] Comment on above: Order Comment: FASTI GLORIA.JKW Name Collection Type:: Clean-Voided Midstream Performed By: #### L IPID, [id number], ADDONUAPLUS, PHOS, PTH, CMP, CBC, URMACRERAT #### [address] Specificy Turrell,Urine 1.026 Normal 1.001-1.030 [facility] Comment on above: Order Comment: FASTI NG.JKW Name Collection Type:: Clean-Voided Midstream Performed By: #### L IPID, [id number], ADDONUAPLUS, PHOS, PTH, CMP, CBC, URMACRERAT #### [address] Squamous Epithelial Cell,Urine 1 [HPF] Normal 0-2 [facility] Comment on above: Order Comment: FASTI NG.JKW Name Collection Type:: Clean-Voided Midstream Performed By: #### L IPID, [id number], ADDONUAPLUS, PHOS, PTH, CMP, CBC, URMACRERAT #### [place] [id number] [place] Urobilinogen,Urine Normal Normal Normal [facility] Comment on above: Order Comment: FASTI NG.JKW Name Collection Type:: Clean-Voided Midstream Performed By: #### L IPID, [id number], ADDONUAPLUS, PHOS, PTH, CMP, CBC, URMACRERAT #### [facility] [address] WBC,Urine 1 [HPF] Normal 0-4 [facility] Comment on above: Order Comment: FASTI NG.JKW Name Collection Type:: Clean-Voided Midstream Performed By: #### L IPID, [id number], ADDONUAPLUS, PHOS, PTH, CMP, CBC, URMACRERAT #### [address] Lipid Panelon 04-23-2024 Cholesterol [Mass/Vol] 142 mg/dL Normal 140-200 [facility] Comment on above: Order Comment: FASTI NG.JKW Result Comment: Chol less than 200 mg/dl low risk Chol 201-239 mg/dl borderline risk Chol 240 mg/dl and greater high risk Performed By: #### L IPID, [id number], ADDONUAPLUS, PHOS, PTH, CMP, CBC, URMACRERAT ####[address] Cholesterol in HDL [Mass/Vol] 52 mg/dL Normal 23-92 [facility] Comment on above: Order Comment: FASTI NG.JKW Result Comment: HDL CHOL ATP-III CLASSIFICATION Cardiovascular Risk HDL > or equal to 60 mg/dL LOW HDL < 40 mg/dL HIGH Performed By: #### L IPID, [id number], ADDONUAPLUS, PHOS, PTH, CMP, CBC, URMACRERAT ####[place] [id number] [address] Cholesterol.total/Ch olesterol in HDL [Mass ratio] 2.7 {ratio} Normal <5.0 [facility] Comment on above: Order Comment: FASTI NG.JKW Performed By: #### L IPID, [id number], ADDONUAPLUS, PHOS, PTH, CMP, CBC, URMACRERAT ####[address] LDL Cholesterol,Calculat ed 74 mg/dL Normal 0-100 [facility] Comment on above: Order Comment: DENG SHIPLEYKW Result Comment: LDL ATP III CLASSIFICATION LDL less than 100 mg/dL Optimal LDL 100-129 mg/dL Near or above optimal LDL 130-159 mg/dL Borderline high LDL 160-189 mg/dL High LDL greater than 189 mg/dL Very high Performed By: #### L IPID, [id number], ADDONUAPLUS, PHOS, PTH, CMP, CBC, URMACRERAT ####[address] Triglyceride w/Reflex 80 mg/dL Normal 0-149 [facility] Comment on above: Order Comment: DENG MCINTOSHW Result Comment: TRIG ATP III CLASSIFICATION TRIG less than 150 mg/dL Normal TRIG 150-199 mg/dL Borderline high TRIG 200-500 mg/dL High TRIG greater than 500 mg/dL Very high Standard traceable to the Center for Disease Conrtrol and Prevention (CDC) test method. Performed By: #### L IPID, [id number], ADDONUAPLUS, PHOS, PTH, CMP, CBC, URMACRERAT ####[address] VLDL CHOLESTEROL 16 mg/dL Normal [facility] Comment on above: Order Comment: DENG MCINTOSHW Performed By: #### L IPID, [id number], ADDONUAPLUS, PHOS, PTH, CMP, CBC, URMACRERAT ####[address] MicroAlb Creat Ratio,Uon Albumin DL <= 20 mg/L (U) [Mass/Vol] 0.9 mg/dL Normal 0.0-1.8 [facility] Comment on above: Order Comment: DENG MCINTOSHW Performed By: #### L IPID, [id number], ADDONUAPLUS, PHOS, PTH, CMP, CBC, URMACRERAT #### [facility] [address] Creatinine, Urine (Random) 176.00 mg/dL Normal [facility] Comment on above: Order Comment: FASTI NG.JKW Result Comment: No r eference range established Performed By: #### L IPID, [id number], ADDONUAPLUS, PHOS, PTH, CMP, CBC, URMACRERAT #### [facility] [address] Microalbumin/Creatin ine Ratio 5.1 mg/g Normal 0.0-30.0 [facility] Comment on above: Order Comment: FASTI NG.JKW Result Comment: 30-3 00 mg/g indicates an increased risk for diabetic nephropathy. Greater than 300 mg/g is consistent with clinical nephropathy. (Am. J. Kidney Disease 1994, 25:107) PERFORMED BY: [place] [address] PATHOLOGIST CRYOGENICS ENGINEER DIAN SHAH M.D. Performed By: #### L IPID, [id number], ADDONUAPLUS, PHOS, PTH, CMP, CBC, URMACRERAT #### [facility] [address] Microalbumin/Creatinine rati o panel (U)on 04-23-2024 Albumin [Mass/Vol] 0.9 mg/dL 0.0 - 1.8 mg/dL [facility] Creatinine spec 2 (U) [Mass/Vol] 176 mg/dL [facility] Comment on above: No reference range e stablished MICROALBUMIN/CREATIN INE RATIO 5.1 mg/g 0.0 - 30.0 mg/g [facility] Comment on above: 30-300 mg/g indicate s an increased risk for diabetic nephropathy. Greater than 300 mg/g is consistent with clinical nephropathy. (Am. J. Kidney Disease 1995, 25:107) FASTING.JKW [facility] Parathyrin.intact [Mass/Vol] on 04-23-2024 PARATHYROID HORMONE INTACT 53.8 pg/mL pg/mL [facility] FASTING.JKW [facility] Parathyroid Hormone Intacton 04-23-2024 Parathyroid Hormone Intact 53.8 pg/mL Normal 12-88 [facility] Comment on above: Order Comment: DENG CASTRO.JKW Result Comment: PERF ORMED BY: [place] [address] PATHOLOGIST CRYOGENICS ENGINEER DIAN SHAH M.D. Performed By: #### L IPID, [id number], ADDONUAPLUS, PHOS, PTH, CMP, CBC, URMACRERAT #### [facility] [address] Phosphoruson 04-23-2024 Phosphate [Mass/Vol] 3.9 mg/dL Normal 2.5-4.5 [facility] Comment on above: Order Comment: DENG CASTRO.JKW Performed By: #### L IPID, [id number], ADDONUAPLUS, PHOS, PTH, CMP, CBC, URMACRERAT #### [facility] [address] [place] [id number] [facility] Vitamin D 25 Hydroxy Totalon 04-23-2024 Vitamin D 25 Hydroxy Total 60.0 ng/mL Normal 30-100 [facility] Comment on above: Order Comment: DENG CASTRO.JKW Result Comment: CALLY MIN D STATUS 25(OH)VITAMIN D RANGE (ng/mL) Deficient <20 Insufficient 20 to <30 Sufficient 30 to 100 Reference: Anahy MF,Sumeet NC, Juventino OQUENDO, et al. Evaluation,treatment, and prevention of vitamin D deficiency; an Endocrine Society clinical practice guideline. JCEM. 2010; 96(7):1911-30. PERFORMED BY: [facility] [address] [place] [address] PATHOLOGIST CRYOGENICS ENGINEER DIAN SHAH M.D. Performed By: #### L IPID, [id number], ADDONUAPLUS, PHOS, PTH, CMP, CBC, URMACRERAT ####[facility] [id number] [place] [id number] [facility] Dipstick and Microscopicon 1 06-18-2023 Appearance (U) Cloudy Critically abnormal Clear [facility] Comment on above: Order Comment: Name Collection Type:: Clean-Voided Midstream Performed By: #### A DDONUAPLUS #### [place] [address] [place] Bacteria,Urine None Seen Normal None Seen The [facility] Comment on above: Order Comment: Name Collection Type:: Clean-Voided Midstream Performed By: #### A DDONUAPLUS #### [place] [address] [place] Bilirubin,Urine Negative Normal Negative The [facility] Comment on above: Order Comment: Name Collection Type:: Clean-Voided Midstream Performed By: #### A DDONUAPLUS #### [address] Color (U) Yellow Normal Yellow [facility] Comment on above: Order Comment: Name Collection Type:: Clean-Voided Midstream Performed By: #### A DDONUAPLUS #### [address] Glucose Ql (U) Normal Normal Normal [facility] Comment on above: Order Comment: Name Collection Type:: Clean-Voided Midstream Performed By: #### A DDONUAPLUS #### [place] [address] [place] Hyaline Casts,Urine None Normal 0-8 [facility] Comment on above: Order Comment: Name Collection Type:: Clean-Voided Midstream Performed By: #### A DDONUAPLUS #### [place] [address] [place] Ketones Ql (U) Negative Normal Negative [facility] Comment on above: Order Comment: Name Collection Type:: Clean-Voided Midstream Performed By: #### A DDONUAPLUS #### [place] [id number] [place] Leukocyte esterase Test strip Ql (U) 3+ High Negative [facility] Comment on above: Order Comment: Name Collection Type:: Clean-Voided Midstream Performed By: #### A DDONUAPLUS #### [place] [address] [place] Mucus,Urine Rare Normal [facility] Comment on above: Order Comment: Name Collection Type:: Clean-Voided Midstream Result Comment: PERF ORMED BY: [place] [address] PATHOLOGIST CRYOGENICS ENGINEER DIAN SHAH M.D. Performed By: #### A DDONUAPLUS #### [place] [address] [place] Nitrite,Urine Negative Normal Negative The [facility] Comment on above: Order Comment: Name Collection Type:: Clean-Voided Midstream Performed By: #### A DDONUAPLUS #### [address] Non-Squamous Epithelial Cell,U 5 [HPF] High None Seen [facility] Comment on above: Order Comment: Name Collection Type:: Clean-Voided Midstream Performed By: #### A DDONUAPLUS #### [place] [address] [place] Occult Blood,Urine Negative Normal Negative The [facility] Comment on above: Order Comment: Name Collection Type:: Clean-Voided Midstream Performed By: #### A DDONUAPLUS #### [place] [address] [place] pH (U) 6.0 [pH] Normal 5.0-9.0 [facility] Comment on above: Order Comment: Name Collection Type:: Clean-Voided Midstream Performed By: #### A DDONUAPLUS #### [place] [address] [place] Protein,Urine Trace High Negative The [facility] Comment on above: Order Comment: Name Collection Type:: Clean-Voided Midstream Performed By: #### A DDONUAPLUS #### [place] [address] [place] RBC,Urine 1 [HPF] Normal 0-4 [facility] Comment on above: Order Comment: Name Collection Type:: Clean-Voided Midstream Performed By: #### A DDONUAPLUS #### [address] Specificy Turrell,Urine 1.023 Normal 1.001-1.030 [facility] Comment on above: Order Comment: Name Collection Type:: Clean-Voided Midstream Performed By: #### A DDONUAPLUS #### [address] Squamous Epithelial Cell,Urine 5 [HPF] High 0-2 [facility] Comment on above: Order Comment: Name Collection Type:: Clean-Voided Midstream Performed By: #### A DDONUAPLUS #### [address] Urobilinogen,Urine 2 mg/dL High Normal The [facility] Comment on above: Order Comment: Name Collection Type:: Clean-Voided Midstream Performed By: #### A DDONUAPLUS #### [address] WBC CLUMP, Urine Occasional High None Seen The [facility] Comment on above: Order Comment: Name Collection Type:: Clean-Voided Midstream Performed By: #### A DDONUAPLUS #### [address] WBC,Urine 10 [HPF] High 0-4 [facility] Comment on above: Order Comment: Name Collection Type:: Clean-Voided Midstream Performed By: #### A DDONUAPLUS #### [address] Urine Cultureon 04-17-2024 Bacteria identified Cx Nom (U) >100,000 colonies/ml mixed bacterial skin contaminants 2 Days PERFORMED BY: [place] [address] PATHOLOGIST CRYOGENICS ENGINEER DIAN SHAH M.D. Normal [facility] Comment on above: Performed By: #### C UU #### [address] [place] [address] [facility] CNOVon 03-19-2024 CNOV Office Visit (PLASMN ) NOREENGILDA CULLEN Melissa ([id number]) 1950 F Date Time Provider Department 03/19/24 10:40 AM DELFIN SEARS During your visit today, we recorded the following information about you: Temperature Pulse Blood pressure Weight 98.2 degrees 89/minute 130/67 88.5 kg Height 1.6 m Delfin Sears PA-C 03/19/2024 2:52 PM Signed PLASTIC SURGERY DEPARTMENT [facility] Hand Surgery Note [x] New referred [...] Lymph 1.00 - 4.00 k/uL 1.29 Abs Custer <0.87 k/uL 0.41 Abs Eosin <0.46 k/uL [...] What........... Reason:.... (more content not included)... Normal [facility] CT LOWER EXTREMITY RIGHT WO IV CONTRASTon [...] Not Available XR TIBIA FIBULA 2 VIEWS [facility] 02-28-2024 XR TIBIA FIBULA 2 VIEWS RIGHT [...] RT 4V*on 02-21-2024 XR knee RT 4V* [facility] [place] [address] [place] [address] XRay Report Signed Patient: Gilda Sorto MR#: [id number] 0 : 1950 Acct:[id number] Age/Sex: 73 / F ADM Date: 02/21/24 Loc: ER Room: Type: [facility] ER Attending Dr: Copies to: Juan Lundberg APRN Ordering Provider: Juan Lundberg APRN Date of Service: 02/21/24 XR/XR wrist LT min 3V*: Fall ([id number]) XR/XR knee RT 4V*: Fall LEFT WRIST [...] NOTED. Impression dictated by: Alexis Rosa Jr., DDave02/21/2024 1:44 PM Dictation Location: [place] [address] Transcribed By: [facility] 02/21/24 1344 Dictated By: Alexis Rosa Jr, DO 02/21/24 134 Signed By: 02/21/24 134 Normal [facility] Laboratory - Microbiology an d Antimicrobial susceptibilityon 06-30-2023 SARS-CoV-2 (COVID-19) RNA ANGELICA+probe Ql (Unsp spec) Negative [facility] No Panel Informationon 06-30 FLU A Negative [facility] FLU B Negative [facility] CNOVon 04-12-2023 CNOV Office Visit (PLASST ) GILDA SORTO ([id number]) 1950 F Date Time Provider Department 04/12/23 1:00 PM KAYLA MATA During your visit today, we recorded the following information about you: Kayla Mata MD 04/12/2023 4:51 PM Signed PLASTIC SURGERY DEPARTMENT [facility] Hand Surgery Note [x] New referred [...] [x] Anticoagula (more content not included)... Normal [facility] No Panel Informationon 04-12 Radiology Study observation (narrative) [facility] XR HAND 3V PA/LAT/OBL BILon [...] 1. Osteoarthritis of both hands and wrists. Breaker Machine Tender: CHARLOTTE Transcribe Date/Time: Apr 12 2023 1:52P Dictated by : EDITH LAZO MD This examination was interpreted and the report reviewed and electronically signed by: EDITH LAZO MD on Apr 12 2023 1:54PM EST [id number] Normal [facility] XR Hand - bilateral PA and L ateral and Obliqueon 04-12-2023 IMPRESSION: 1. Osteoarthritis of both hands and wrists. Breaker Machine Tender: PSCB Transcribe Date/Time: Apr 12 2023 1:52P [...] erosions are demonstrated. DIVISION OF RADIOLOGY Provider, Frances ruth [place] - 04/12/2023 * * *Final Report* * [...] 1. Osteoarthritis of both hands and wrists. Breaker Machine Tender[facility] Transcribe Date/Time: Apr 12 2023 1:52P Dictated by : EDITH LAZO MD This examination was interpreted and the report reviewed and electronically signed by: EDITH LAZO MD on Apr 12 2023 1:54PM EST [facility] XR Hand - bilateral PA and L ateral and ObliqueOrdered By: Ccf Provider on 04-12-2023 [facility] XR WRIST 3V PA/LAT/OBL BILon [...] IMPRESSION: 1. Degenerative arthrosis of both wrists. Breaker Machine Tender: CHARLOTTE Transcribe Date/Time: Apr 12 2023 1:54P Dictated by : EDITH LAZO MD This examination was interpreted and the report reviewed and electronically signed by: EDITH LAZO MD on Apr 12 2023 1:55PM EST [id number] Normal [facility] XR Wrist - bilateral PA and Lateral and Obliqueon 04-12-2023 IMPRESSION: 1. Degenerative arthrosis of both wrists. Breaker Machine Tender: CHARLOTTE Transcribe Date/Time: Apr 12 2023 1:54P [...] erosions are demonstrated. DIVISION OF RADIOLOGY Provider, Frances Keyes [facility] - 04/12/2023 * * *Final Report* [...] IMPRESSION: 1. Degenerative arthrosis of both wrists. Breaker Machine Tender: CHARLOTTE Transcribe Date/Time: Apr 12 2023 1:54P Dictated by : EDITH LAZO MD This examination was interpreted and the report reviewed and electronically signed by: EDITH LAZO MD on Apr 12 2023 1:55PM EST [facility] JAKE SCREENING W TOMOon 04-16 [facility] SARS-CoV-2,INFLUENZA A/B NUC LEI ACID TESTon 12-15-2021 EUA DISCLAIMER Normal [facility] Comment on above: Result Comment: Infl [...] is terminated or revoked sooner. Performed at [facility] [address] [facility] [address] FLU A by PCR Negative Normal [facility] FLU B by PCR Negative Normal [facility] SARS-CoV-2 (COVID-19) RNA ANGELICA+probe Ql (Unsp spec) Abnormal NEG [facility] Comment on above: Result Comment: Posi tive for COVID-19 CRITICAL VALUE-PHYSICIAN MUST BE NOTIFIED RESULTS PHONED TO: Carmel Tinajero RN at 0928 VERBAL RESULT VERIFICATION RECEIVED EUA DISCLAIMER Normal [facility] Comment on above: Result Comment: Infl [...] is terminated or revoked sooner. Performed at [place] [id number] FLU A by PCR Negative [facility] FLU B by PCR Negative [facility] SARS-CoV-2 (COVID-19) RNA ANGELICA+probe Ql (Unsp spec) Abnormal NEG [facility] Comment on above: Result Comment: Posi tive for COVID-19 CRTV RESULTS PHONED TO: Jenny Fitzpatrick RN at 0854 VERBAL RESULT VERIFICATION RECEIVED CBC with Diffon 12-09-2021 AB IMMATURE NEUT 0.02 K/UL Normal 0.0-0.1 [facility] ABS BASO 0.02 K/UL Normal 0.00-0.22 [facility] ABS EOS 0.32 K/UL Normal 0-0.45 [facility] ABS NEUTROPHILS 4.34 K/UL Normal 1.8-7.7 [facility] ABS.NEUT.CALCULATED 4.34 K/UL Normal [facility] Comment on above: Result Comment: Perf ormed at [address] [address] Basophils/100 WBC (Bld) 0.30 % Normal 0-1 [facility] DIFF TYPE AUTO DIFF Normal [facility] Eosinophils/100 WBC (Bld) 5.10 % High 0-3 [facility] Erythrocyte distribution width (RBC) [Ratio] 12.7 % Normal 11.7-15.0 [facility] Hematocrit (Bld) [Volume fraction] 41.9 % Normal 36-44 [facility] Hemoglobin (Bld) [Mass/Vol] 13.5 g/dL Normal 12.0-15.0 [facility] Lymphocytes (Bld) [#/Vol] 1.15 10*3/uL Low 1.2-3.2 [facility] Lymphocytes/100 WBC (Bld) 18.30 % Low 20-40 [facility] MCH (RBC) [Entitic mass] 31.0 pg Normal 26-34 [facility] MCHC 32.2 % Normal 31-37 [facility] MCV (RBC) [Entitic vol] 96.3 fL Normal 80-100 [facility] MEAN PLT VOL 9.0 CU Normal 7.0-12.6 [facility] Monocytes (Bld) [#/Vol] 0.44 10*3/uL Normal 0-0.8 [facility] Monocytes/100 WBC (Bld) 7.00 % Normal 0-8 [facility] Neutrophils/100 WBC (Bld) 0.30 % Normal 0.0-1.0 [facility] Neutrophils/100 WBC (Bld) 69.00 % Normal 50-70 [facility] Platelets (Bld) [#/Vol] 240 10*3/uL Normal 150-450 [facility] RBC (Bld) [#/Vol] 4.35 10*6/uL Normal 4.0-4.9 [facility] RDW-SD 45.4 FL Normal 37.0-54.0 [facility] WBC (Bld) [#/Vol] 6.3 10*3/uL Normal 4.5-11.[address] [facility] COMPREHENSIVE METABOLIC PANE Juanito 12-09-2021 Albumin [Mass/Vol] 4.2 g/dL Normal 3.5-5.[address] [facility] Albumin/Globulin [Mass ratio] 1.6 {ratio} Normal 1.5-3.0 [facility] ALP [Catalytic activity/Vol] 80 U/L Normal 35-125 [facility] ALT [Catalytic activity/Vol] 26 U/L Normal 5-40 [facility] Anion gap [Moles/Vol] 7 mmol/L Normal 0-19 [facility] AST [Catalytic activity/Vol] 32 U/L Normal 5-40 [facility] Bilirubin [Mass/Vol] 0.3 mg/dL Normal 0.1-1.2 [facility] Calcium [Mass/Vol] 9.4 mg/dL Normal 8.5-10.[address] [facility] Chloride [Moles/Vol] 103 mmol/L Normal 97-107 [facility] CO2 [Moles/Vol] 31 mmol/L Normal 24-31 [facility] Creatinine [Mass/Vol] 1.2 mg/dL Normal 0.4-1.6 [facility] ESTIMATED GFR 48 mL/min/1.73 m2 Normal [facility] Comment on above: Result Comment: CALCULATIONS OF ESTIMATED GFR ARE PERFORMED USING THE 2020 CKD-EPI STUDY REFIT EQUATION WITHOUT THE RACE VARIABLE FOR THE IDMS-TRACEABLE CREATININE METHODS. https://jasn.asnjournals.org/content//ASN.7140173 988 Performed at [address] [address] Globulin (S) [Mass/Vol] 2.6 g/dL Normal 1.9-3.7 [facility] Glucose [Mass/Vol] 87 mg/dL Normal 65-[address] [facility] Potassium [Moles/Vol] 4.8 mmol/L Normal 3.4-5.1 [facility] Protein [Mass/Vol] 6.8 g/dL Normal 5.9-7.[address] [facility] Sodium [Moles/Vol] 141 mmol/L Normal 133-[address] [facility] Urea nitrogen [Mass/Vol] 13 mg/dL Normal 8-25 [facility] Urea nitrogen/Creatinine [Mass ratio] 10.8 mg/mg Normal 8-21 [facility] UA-REFLEX TO CULTUREon 12-09 EPI Normal [facility] Comment on above: Result Comment: Occa sional SQUAMOUS Performed at [address] [address] RBC NONE SEEN Normal 0-3 [facility] Urinalysis dipstick W Reflex Microscopic panel (U) MANUAL MICROSCOPIC URINES Normal [facility] WBC NONE SEEN Normal 0-3 [facility] Bacteria identified Cx Nom (U) CULTURE NOT INDICATED Normal [facility] Comment on above: Result Comment: CULT URE NOT INDICATED Performed at [place] [address] [facility] [address] BILI Negative Normal NEG Replaced By [facility] Clarity (U) CLEAR Normal Replaced By [facility] Color (U) YELLOW Normal [facility] GLUC Negative Normal NEG Replaced By [facility] Hemoglobin Ql (U) Negative Normal NEG [facility] KET Negative Normal NEG [facility] LEUK Negative Normal NEG [facility] NIT Negative Normal NEG Replaced By [facility] pH (U) 8.0 [pH] Normal 4.6-8.0 [facility] PROT Negative Normal NEG [facility] SP GRAV,URINE 1.015 Normal 1.005-1.030 [facility] URO 0.2 MG/DL Normal 0-1.0 [facility] CREATININE, BLOOD (POC)on Creatinine [Mass/Vol] 1.20 mg/dL 0.7 - 1.4 mg/dL [facility] eGFR (POCT) 48 mL/min/1.73 m2 [facility] CTA ABD/PEL W IVCONon 2021 [facility] MRI Shoulder w/o Righton MRI [...] by Gonsalo Alvarez on 10/21/2021 1010 Normal [facility] Complete Blood Count with Au to Diffon 04-21-2021 Basophils (Bld) [#/Vol] 0.03 10*3/uL Normal 0.00-0.20 [facility] Specialist Comment on above: Performed By: #### C BCAD, VITD, LIPD, CMP #### [facility] [address] [place], [place] [id number] Basophils/100 WBC (Bld) 0.5 % Normal [facility] Comment on above: Performed By: #### C BCAD, VITD, LIPD, CMP #### [facility] [address] [place], [place] [id number] Eosinophils (Bld) [#/Vol] 0.27 10*3/uL Normal 0.02-0.50 [facility] Comment on above: Performed By: #### C BCAD, VITD, LIPD, CMP #### [facility] [address] [place], [place] [id number] Eosinophils/100 WBC (Bld) 4.6 % Normal [facility] Specialist Comment on above: Performed By: #### C BCAD, VITD, LIPD, CMP #### [facility] [address] [place], [place] [id number] Erythrocyte distribution width (RBC) [Ratio] 13.1 % Normal 11.0-15.0 [facility] Comment on above: Performed By: #### C BCAD, VITD, LIPD, CMP #### [facility] [address] [place], [place] [id number] Hematocrit (Bld) [Volume fraction] 43.9 % Normal 35.0-47.0 [facility] Specialist Comment on above: Performed By: #### C BCAD, VITD, LIPD, CMP #### [facility] [address] [place], [place] [id number] Hemoglobin (Bld) [Mass/Vol] 14.0 g/dL Normal 11.6-15.5 [facility] Special[facility] Comment on above: Performed By: #### C BCAD, VITD, LIPD, CMP #### [facility] [address] [place], [place] [id number] Lymphocytes (Bld) [#/Vol] 1.9 10*3/uL Normal 0.9-3.9 [facility] Comment on above: Performed By: #### C BCAD, VITD, LIPD, CMP #### [facility] [address] [place], [place] [id number] Lymphocytes/100 WBC (Bld) 31.8 % Normal [facility] Special[facility] Comment on above: Performed By: #### C BCAD, VITD, LIPD, CMP #### [facility] [address] [place], [place] [id number] MCH (RBC) [Entitic mass] 30.0 pg Normal 27.0-33.0 [facility] Comment on above: Performed By: #### C BCAD, VITD, LIPD, CMP #### [facility] [address] [place], [place] [id number] MCHC (RBC) [Mass/Vol] 31.9 g/dL Low 32.0-36.0 [facility] Comment on above: Performed By: #### C BCAD, VITD, LIPD, CMP #### [facility] [address] [place], [place] [id number] MCV (RBC) [Entitic vol] 94 fL Normal 80-100 [facility] Special[facility] Comment on above: Performed By: #### C BCAD, VITD, LIPD, CMP #### [facility] [address] [place], [place] [id number] Monocytes (Bld) [#/Vol] 0.5 10*3/uL Normal 0.2-0.9 [facility] Comment on above: Performed By: #### C BCAD, VITD, LIPD, CMP #### [facility] [address] [place], [place] [id number] Monocytes/100 WBC (Bld) 7.9 % Normal [facility] Comment on above: Performed By: #### C BCAD, VITD, LIPD, CMP #### [facility] [address] [place], [place] [id number] Neutrophils (Bld) [#/Vol] 3.2 10*3/uL Normal 1.5-7.8 [facility] Comment on above: Performed By: #### C BCAD, VITD, LIPD, CMP #### [facility] [address] [place], [place] [id number] Neutrophils/100 WBC (Bld) 54.9 % Normal [facility] Comment on above: Performed By: #### C BCAD, VITD, LIPD, CMP #### [facility] [address] [place], [place] [id number] Platelet mean volume (Bld) [Entitic vol] 9.90 fL Normal 7.50-12.50 [facility] Comment on above: Performed By: #### C BCAD, VITD, LIPD, CMP #### [facility] [address] [place], [place] [id number] Platelets (Bld) [#/Vol] 255 10*3/uL Normal 140-400 [facility] Comment on above: Performed By: #### C BCAD, VITD, LIPD, CMP #### [facility] [address] [place], [place] [id number] RBC (Bld) [#/Vol] 4.67 10*6/uL Normal 3.90-5.20 [facility] Comment on above: Performed By: #### C BCAD, VITD, LIPD, CMP #### [facility] [address] [place], [place] [id number] RDW-SD 44.8 fL Normal 37.0-50.0 [facility] Comment on above: Performed By: #### C BCAD, VITD, LIPD, CMP #### [facility] [address] [place], [place] [id number] WBC (Bld) [#/Vol] 5.8 10*3/uL Normal 3.8-11.[address] [facility] Comment on above: Performed By: #### C BCAD, VITD, LIPD, CMP #### [facility] [address] [place], [place] [id number] Comprehensive Metabolic Pane juanito 04-21-2021 Albumin [Mass/Vol] 4.5 g/dL Normal 3.6-5.[address] [facility] Comment on above: Performed By: #### C BCAD, VITD, LIPD, CMP #### [facility] [address] [place], [place] [id number] Albumin/Globulin [Mass ratio] 2.3 {ratio} Normal 1.0-2.5 [facility] Comment on above: Performed By: #### C BCAD, VITD, LIPD, CMP #### [facility] [address] [place], [place] [id number] ALP [Catalytic activity/Vol] 96 U/L Normal 35-119 [facility] Comment on above: Performed By: #### C BCAD, VITD, LIPD, CMP #### [facility] [address] [place], [place] [id number] ALT [Catalytic activity/Vol] 24 U/L Normal 6-33 [facility] Comment on above: Result Comment: 04/15 Female reference range changed. Performed By: #### C BCAD, VITD, LIPD, CMP #### [facility] [address] [place], [place] [id number] Anion gap [Moles/Vol] 18 mmol/L Normal 12-20 [facility] Comment on above: Result Comment: Effe ctive 05/21/2019 reference range changed. Performed By: #### C BCAD, VITD, LIPD, CMP #### [facility] [address] [place], [place] [id number] AST [Catalytic activity/Vol] 30 U/L Normal 9-34 [facility] Comment on above: Performed By: #### C BCAD, VITD, LIPD, CMP #### [facility] [address] [place], [place] [id number] Bilirubin [Mass/Vol] 0.51 mg/dL Normal 0.30-1.20 [facility] Comment on above: Performed By: #### C BCAD, VITD, LIPD, CMP #### [facility] [address] [place], [place] [id number] BUN/CREA 21 Ratio Normal 6-22 [facility] Comment on above: Performed By: #### C BCAD, VITD, LIPD, CMP #### [facility] [address] [place], [place] [id number] Calcium [Mass/Vol] 9.8 mg/dL Normal 8.6-10.[address] [facility] Comment on above: Performed By: #### C BCAD, VITD, LIPD, CMP #### [facility] [address] [place], [place] [id number] Chloride [Moles/Vol] 103 mmol/L Normal 98-107 [facility] Comment on above: Performed By: #### C BCAD, VITD, LIPD, CMP #### [facility] [address] [place], [place] [id number] CO2 [Moles/Vol] 26 mmol/L Normal 20-31 [facility] Comment on above: Performed By: #### C BCAD, VITD, LIPD, CMP #### [facility] [address] [place], [place] [id number] Creatinine [Mass/Vol] 1.1 mg/dL Normal 0.6-1.4 [facility] Specialist Comment on above: Performed By: #### C BCAD, VITD, LIPD, CMP #### [facility] [address] [place], [place] [id number] eGFRAA 58 mL/min/1.73m2 Low >60 [facility] Specialist Comment on above: Performed By: #### C BCAD, VITD, LIPD, CMP #### [facility] [address] [place], [place] [id number] eGFRNAA 48 mL/min/1.73m2 Low >60 [facility] Specialist Comment on above: Performed By: #### C BCAD, VITD, LIPD, CMP #### [facility] [address] [place], [place] [id number] Globulin (S) [Mass/Vol] 2.0 g/dL Normal 1.9-3.7 [facility] Specialist Comment on above: Performed By: #### C BCAD, VITD, LIPD, CMP #### [facility] [address] [place], [place] [id number] Glucose [Mass/Vol] 91 mg/dL Normal 65-99 [employer] rn [place] [employer] Worker Comment on above: Result Comment: For FASTING Glucose --- ADA reference ranges: Normal 65-99 mg/dl Prediabetes 100-125 Diabetes >/= 126 Performed By: #### C BCAD, VITD, LIPD, CMP #### [facility] [address] [place], [place] [id number] Potassium [Moles/Vol] 4.5 mmol/L Normal 3.5-5.5 [facility] [employer] Worker Comment on above: Performed By: #### C BCAD, VITD, LIPD, CMP #### [facility] [address] [place], [place] [id number] Protein [Mass/Vol] 6.5 g/dL Normal 6.1-8.1 [facility] rn [place] [employer] Worker Comment on above: Performed By: #### C BCAD, VITD, LIPD, CMP #### [facility] [address] [place], [place] [id number] Sodium [Moles/Vol] 142 mmol/L Normal 135-146 [facility] rn [place] [employer] Worker Comment on above: Performed By: #### C BCAD, VITD, LIPD, CMP #### [facility] [address] [place], [place] [id number] Urea nitrogen [Mass/Vol] 24 mg/dL Normal 7-25 [facility] [employer] Worker Comment on above: Performed By: #### C BCAD, VITD, LIPD, CMP #### [facility] [address] [place], [place] [id number] Lipid Panelon 04-21-2021 Cholesterol [Mass/Vol] 182 mg/dL Normal 125-200 [facility] [employer] Worker Comment on above: Result Comment: Low risk < 200mg/dL Borderline risk 201-239 mg/dl High risk > or equal to 240 Performed By: #### C BCAD, VITD, LIPD, CMP #### [facility] [address] [place], [place] [id number] Cholesterol in HDL [Mass/Vol] 62 mg/dL Normal >40 [facility] [employer] Worker Comment on above: Result Comment: High Cardiovascular Risk HDL <40 mg/dL Low Cardiovascular Risk HDL > or equal to 60 mg/dl Performed By: #### C BCAD, VITD, LIPD, CMP #### [facility] [address] [place], [place] [id number] Cholesterol in LDL [Mass/Vol] 98 mg/dL Normal [facility] Comment on above: Result Comment: LDL ATP III CLASSIFICATION LDL less than 100 mg/dl Optimal LDL 100-129 mg/dl Near or above optimal LDL 130-159 Borderline high LDL 160-189 High LDL greater than 189 mg/dl Very High Performed By: #### C BCAD, VITD, LIPD, CMP #### [facility] [address] [place], [place] [id number] Cholesterol in VLDL [Mass/Vol] 22 mg/dL Normal [facility] Specialist Comment on above: Performed By: #### C BCAD, VITD, LIPD, CMP #### [facility] [address] [place], [place] [id number] Cholesterol.total/Ch olesterol in HDL [Mass ratio] 3 {ratio} Normal [facility] Comment on above: Performed By: #### C BCAD, VITD, LIPD, CMP #### [facility] [address] [place] [place], [place] [id number] Triglyceride [Mass/Vol] 108 mg/dL Normal 30-150 [facility] Specialist Comment on above: Result Comment: TRIG ATPIII CLASSIFICATIONS TRIG less than 150 mg/dl Normal TRIG 150-199 mg/dl Borderline High TRIG 200-500 mg/dl High TRIG greather than 500 mg/dl Very High Performed By: #### C BCAD, VITD, LIPD, CMP #### [facility] [address] [place], [place] [id number] Microalbumin (with Creat)on 04-21-2021 mALB <1.2 Low [facility] Specialist Comment on above: Result Comment: Unab le to calculate mALB/Crea ratio, mALB is <1.2 mg/dL mALB reference range not established. Performed By: #### m ALBC #### [facility] [address] [place], [place] [id number] UCREA 183 mg/dL Normal 28-217 [facility] [employer] Worker Comment on above: Performed By: #### m ALBC #### [facility] [address] [place], [place] [id number] Q - URINALYSIS,COMPLETEon Appearance (U) CLEAR Normal CLEAR [facility] [employer] Worker Comment on above: Order Comment: [facility] performed at: [facility] [employer] [facility], [address] [facility], [address] [place] [address], [address] [place] [address], Ball Point Splitter: Clay Sparrow MD [facility] Date/Time: [facility] Results Received Date/Time: [facility] Reported Date/Time: Performed By: #### 3 4F #### [facility] [address] [place] [address] BACTERIA NONE SEEN Normal NONE SEEN [facility] [employer] Worker Comment on above: Order Comment: [facility] performed at: [employer] [employer] [facility], [address] , [address] [place] [address], [address] [place] [address], [employer] Point Splitter: Clay Sparrow MD [facility] Date/Time: [facility] Results Received Date/Time: [facility] Reported Date/Time: Performed By: #### 3 4F #### [facility] [address] [place] [address] Bilirubin Ql (U) Negative Normal NEGATIVE [facility] [employer] Worker Comment on above: Order Comment: [facility] performed at: [employer] [employer] [facility], [address] , [address] [place] [address], [address] [place] [address], [employer] Splitter: Clay Sparrow MD [facility] Date/Time: [facility] Results Received Date/Time: [facility] Reported Date/Time: Performed By: #### 3 4F #### [facility] [address] [place] [address] Color (U) YELLOW Normal YELLOW [facility] [employer] Worker Comment on above: Order Comment: [facility] performed at: [employer] [facility], [address] , [address] [place] [address], [address] [place] [address], Ball Point Splitter: Clay Sparrow MD [facility] Date/Time: [facility] Results Received Date/Time: [facility] Reported Date/Time: Performed By: #### 3 4F #### [facility] [address] [place] [address] Glucose Ql (U) Negative Normal NEGATIVE [facility] [employer] Worker Comment on above: Order Comment: [facility] performed at: [employer] [employer] [facility], [address] [facility], [address] [place] [address], [address] [place] [address], [employer] Point Splitter: Clay Sparrow MD [facility] Date/Time: [facility] Results Received Date/Time: [facility] Reported Date/Time: Performed By: #### 3 4F #### [facility] [address] [place] [address] HYALINE CAST NONE SEEN Normal NONE SEEN [facility] [employer] Worker Comment on above: Order Comment: [facility] performed at: [employer] [employer] [facility], [address] [facility], [address] [place] [address], [address] [place] [address], [employer] Point Splitter: Clay Sparrow MD [facility] Date/Time: [facility] Results Received Date/Time: [facility] Reported Date/Time: Performed By: #### 3 4F #### [facility] [address] [place] [address] Ketones Ql (U) Negative Normal NEGATIVE [facility] [employer] Worker Comment on above: Order Comment: [facility] performed at: [employer] [employer] [facility], [address] [facility], [address] [place] [address], [address] [place] [address], [employer] Point Splitter: Clay Sparrow MD [facility] Date/Time: [facility] Results Received Date/Time: [facility] Reported Date/Time: Performed By: #### 3 4F #### [facility] [address] [place] [address] Leukocyte esterase Test strip Ql (U) TRACE Abnormal NEGATIVE [facility] Specialist Comment on above: Order Comment: [facility] performed at: [facility], [employer] [facility], [address] [facility], [address] [place] [address], [address] [place] [address], [employer] Point Splitter: Clay Sparrow MD [facility] Date/Time: [facility] Results Received Date/Time: [facility] Reported Date/Time: Performed By: #### 3 4F #### [facility] [address] [place] [address] Nitrite Ql (U) Negative Normal NEGATIVE [facility] Specialist Comment on above: Order Comment: [facility] performed at: [facility], [employer] [facility], [address] [place] [address], [address] [place] [address], [address] [place] [address], [employer] Point Splitter: Clay Sparrow MD [facility] Date/Time: [facility] Results Received Date/Time: [facility] Reported Date/Time: Performed By: #### 3 4F #### [facility] [address] [place] [address] OCCULT BLOOD Negative Normal NEGATIVE [facility] [employer] Worker Comment on above: Order Comment: [facility] performed at: [facility], [employer] [facility], [address] [place] [address], [address] [place] [address], [address] [place] [address], [employer] Point Splitter: Clay Sparrow MD [facility] Date/Time: [facility] Results Received Date/Time: [facility] Reported Date/Time: Performed By: #### 3 4F #### [facility] [address] [place] [address] pH (U) 6.5 [pH] Normal 5.0-8.0 [facility] [employer] Worker Comment on above: Order Comment: [facility] performed at: [facility], [employer] [facility], [address] [place] [address], [address] [place] [address], [address] [place] [address], [employer] Point Splitter: Clay Sparrow MD [facility] Date/Time: [facility] Results Received Date/Time: [facility] Reported Date/Time: Performed By: #### 3 4F #### [facility] [address] [place] [address] Protein Ql (U) Negative Normal NEGATIVE [facility] Specialist Comment on above: Order Comment: [facility] performed at: [employer] [employer] [facility], [address] [facility], [address] [place] [address], [address] [place] [address], [employer] Splitter: Clay Sparrow MD [facility] Date/Time: [facility] Results Received Date/Time: [facility] Reported Date/Time: Performed By: #### 3 4F #### [facility] [address] [place] [address] RBC NONE SEEN Normal < OR = 2 [facility] [employer] Worker Comment on above: Order Comment: [facility] performed at: [employer] [employer] [facility], [address] [facility], [address] [place] [address], [address] [place] [address], [employer] Splitter: Clay Sparrow MD [facility] Date/Time: [facility] Results Received Date/Time: [facility] Reported Date/Time: Performed By: #### 3 4F #### [facility] [address] [place] [address] Specific gravity (U) [Rel density] 1.025 Normal 1.001-1.035 [facility] [employer] Worker Comment on above: Order Comment: [facility] performed at: [employer] [employer] [facility], [address] [place] [address], [address] [place] [address], [address] [place] [address], [employer] Splitter: Clay Sparrow MD [facility] Date/Time: [facility] Results Received Date/Time: [facility] Reported Date/Time: Performed By: #### 3 4F #### [facility] [address] [place] [address] SQUAMOUS EPITHELIAL CELLS 0-5 Normal < OR = 5 [facility] [employer] Worker Comment on above: Order Comment: [facility] performed at: [employer] [employer] [facility], [address] [facility], [address] [place] [address], [address] [place] [address], [employer] Splitter: Clay Sparrow MD [facility] Date/Time: [facility] Results Received Date/Time: [facility] Reported Date/Time: Performed By: #### 3 4F #### [facility] [address] [place] [address] WBC NONE SEEN Normal < OR = 5 [facility] [employer] Worker Comment on above: Order Comment: [facility] performed at: [employer] [employer] [facility], [address] [facility], [address] [place] [address], [address] [place] [address], [employer] Splitter: Clay Sparrow MD [facility] Date/Time: [facility] Results Received Date/Time: [facility] Reported Date/Time: Performed By: #### 3 4F #### [facility] [address] [place] [address] Vitamin D 25-OHon 04-21-2021 VIT D 25 OH 52 ng/ml Normal >29 [facility] [employer] Worker Comment on above: Result Comment: Cally min D Status Deficiency <20 ng/mL Insufficiency 20-29 ng/mL Optimal 30-100 ng/mL Possible Toxicity >=150 ng/mL Performed By: #### C BCAD, VITD, LIPD, CMP #### [facility] [address] [facility] [place], [place] [id number] XR KNEE GENERAL 4V AP BOTH/P A BOTH/LAT/MERC LTon 12-04-2020 [facility] XR KNEE POST OP 3V AP/LAT/ME RCHANT LTon 04-01-2020 [facility] XR KNEE GENERAL 4V AP BOTH/P A BOTH/LAT/MERC LTon 12-20-2019 [facility] Basic Metabolic Panlon 12-05 Anion gap [Moles/Vol] 8 mmol/L Low 01-31 [facility] Calcium [Mass/Vol] 6.8 mg/dL Low 8.5-10.2 [facility] Chloride [Moles/Vol] 108 mmol/L High 97-105 [facility] CO2 [Moles/Vol] 20 mmol/L Low 22-30 [facility] Creatinine [Mass/Vol] 1.07 mg/dL High 0.58-0.96 [facility] eGFR- Amer. >60 Normal [facility] GFR/1.73 sq M predicted among non-blacks MDRD (S/P/Bld) [Vol rate/Area] 51 . Normal [facility] Comment on above: Result Comment: eGFR [...] GFR. Glucose [Mass/Vol] 145 mg/dL High 74-99 [facility] Comment on above: Result Comment: The [place] Diabetes Association (ADA) provides guidance for cutoff [...] Standards of Medical Care in Diabetes 2016, [place] Diabetes Association. Diabetes Care. 2016.39(Suppl 1). Potassium [Moles/Vol] 3.3 mmol/L Low 3.7-5.1 [facility] Sodium [Moles/Vol] 136 mmol/L Normal 136-144 [facility] Urea nitrogen [Mass/Vol] 21 mg/dL Normal 7-21 [facility] CBCon 12-06-2019 Absolute nRBC <0.01 [facility] <0.01 [facility] distribution width (RBC) [Ratio] 12.5 % Normal 11.5-15.0 [facility] Hematocrit (Bld) [Volume fraction] 30.3 % Low 36.0-46.0 [facility] Hemoglobin (Bld) [Mass/Vol] 9.5 g/dL Low 11.5-15.5 [facility] MCH (RBC) [Entitic mass] 30.6 pG Normal 26.0-34.0 [facility] MCHC (RBC) [Mass/Vol] 31.4 g/dL Normal 30.5-36.0 [facility] MCV (RBC) [Entitic vol] 97.7 fL Normal 80.0-100.0 [facility] Platelet mean volume (Bld) [Entitic vol] 10.2 fL Normal 9.0-12.7 [facility] l Platelets (Bld) [#/Vol] 188 10*3/uL Normal 150-400 [facility] RBC (Bld) [#/Vol] 3.10 10*6/uL Low 3.90-5.20 [facility] WBC (Bld) [#/Vol] 9.31 10*3/uL Normal 3.70-11.00 [facility] NURSING PROGon 12-06-2019 NURSING PROG HNO ID: [id number] Author: Tae (Rn) LOAN Alvarenga Service: Nursing [...] note was completed by: Tae Alvarenga RN [facility] PLAN OF CAREon 12-06-2019 PLAN OF CARE HNO ID: [id number] Author: Carlie Beltre (Stone [employer] Sawyer) Service: ? Author Type: ? Type: Plan [...] macrocrystal 100 mg capsule Commonly known as: MACROAMBREEN Beltre ([employer]) PAGER: [email or web address] December 06, 2019 3:10 PM Normal [facility] PROGRESSon 12-06-2019 PROGRESS HNO ID: [id number] Author: Taz Dean Service: Orthopaedic Surgery Author [...] Osteoarthritis of Left Knee Breast Asymmetry Between [place] Breast and Reconstructed Breast S/P Partial Mastectomy, Right History of Breast Cancer Mass of Left Knee Tear of Lateral Meniscus of Left Knee Complex Tear of Lateral Meniscus of Left Knee As Current Injury Medication and Non-Pharmacologic VTE Prophylaxis/Anticoagula nts 12/05/19 1300 pneumatic compression stockings (ak,oh) 12/05/19 1300 graduated compression stockings (ak,de) VTE Prophylaxis: VTE prophylaxis appropriate POST OPERATIVE COMPLICATIONS: Complicated by: uneventful/none SIGNATURE: Taz Dean DO PATIENT NAME: Gilda Sorto DATE: December 06, 2019 TIME: 9:46 AM PAGER/CONTACT #: ANNIE [phone] [facility] THERAPY NTon 12-06-2019 THERAPY NT HNO ID: [id number] Author: Jessica (Ot) Simon Service: ? Author Type: Occupational Therapist Type: Therapy (PT/OT/Speech/Resp) Filed: 12/06/2019 3:16 PM Note Text: Occupational Therapy Evaluation SERVICE DATE: 12/06/2019 SERVICE TIME: 1423 to 1500 ROOM: [place] [address] Recommended Discharge Disposition: Home Recommended Discharge Disposition [...] of daily living (ADL) Interventions Provided: Evaluation;Self Shelter Management (88024) $ Evaluation-Low (41310) Billed Units: 1 unit Self Shelter Management (26106) Treatment Minutes: 20 1 unit Skilled Intervention(s): [...] relating to: -functional transfers (use of leg shell mold bonder to assist surgical leg in/out of bed, [...] of tub or shower seat/bench w/ leg shell mold bonder, importance of grab bars and not bathing [...] Walker;Shower Bench;Wheelchair;Elevat ed Toilet Seat;Long Handled Shoe Horn;Event Operations Manager Prior Functional Level: Within Functional Limits Prior [...] December 06, 2019 TIME: 3:10 PM Normal [facility] THERAPY NT HNO ID: [id number] Author: Yadira Sher Service: Physical Therapy Author Type: Physical Therapist Type: Therapy (PT/OT/Speech/Resp) Filed: 12/06/2019 3:32 PM Note Text: Physical Therapy Treatment SERVICE DATE: 12/06/2019 SERVICE TIME: 7154 to 1402 ROOM: [place] [address] Recommended Discharge Disposition: Outpatient Physical Therapy Anticipated [...] (ADL);Muscle Weakness (generalized) Interventions Provided: Therapeutic Exercise (40149);Gait Training (81195) Therapeutic Exercise (10862) Treatment Minutes: 13 1 unit Skilled Intervention(s): Instruction in therapeutic exercise Verbal and tactile cuing provided for supine HEP Education in importance of changing positions slowly, staying active Gait Training (30068) Treatment Minutes: 15 2 units Skilled Intervention(s): [...] Walker;Shower Bench;Wheelchair;Elevat ed Toilet Seat;Long Handled Shoe Horn;Event Operations Manager Prior Functional Level: Within Functional Limits Prior [...] December 06, 2019 TIME: 2:35 PM Normal [facility] THERAPY NT HNO ID: [id number] Author: Yadira (PtElayne Sher Service: Physical Therapy Author Type: Physical Therapist Type: Therapy (PT/OT/Speech/Resp) Filed: 12/06/2019 12:23 PM Note Text: Physical Therapy Treatment SERVICE DATE: 12/06/2019 SERVICE TIME: 1010 to 1050 ROOM: [place] [address] Recommended Discharge Disposition: Outpatient Physical Therapy Anticipated [...] ess on feet Interventions Provided: Therapeutic Exercise (28600);Gait Training (98091) Therapeutic Exercise (47385) Treatment Minutes: 15 1 unit Skilled Intervention(s): Instruction in therapeutic exercise Verbal and tactile cuing provided for proper HEP completion Education in importance of mobility (see flow sheet for exercises completed) Gait Training (84340) Treatment Minutes: 25 2 units Skilled Intervention(s): [...] December 06, 2019 TIME: 11:10 AM Normal [facility] ANES POSTPROC EVALon 020 ANES POSTPROC EVAL HNO ID: [id number] Author: Bayron Everett Service: ? Author Type: [...] December 05, 2019 TIME: 1:23 PM CSN: [id number] [facility] ANES PRE-OPon 12-05-2019 ANES PRE-OP HNO ID: [id number] Author: Bayron Everett Service: ? Author Type: [...] December 05, 2019 TIME: 7:11 AM CSN: [id number] [facility] BRIEF OP NOTon 12-05-2019 BRIEF OP NOT HNO ID: [id number] Author: Taz Dean Service: Orthopaedic Surgery Author Type: Physician Type: Brief Op Note Filed: 12/05/2019 10:38 AM Note Text: TOTAL KNEE ARTHROPLASTY BRIEF OPERATIVE / PROCEDURE NOTE LOG ID: [id number] Surgery/Procedure Date: 12/05/2019 Incision/Procedure Start Time: 8:08 AM Incision Close/Procedure End Time: 10:34 AM Surgeon(s)/Proceduralis t(s) and Aircraft Structural Design Engineer(s): Surgeon(s) and Role: * Taz Dean - Primary Physician Aircraft Structural Design Engineer: Gavin Ballard Procedure(s): Procedure(s) (LRB): ARTHROPLASTY REPLACE JOINT TOTAL KNEE (Left) Anesthesia: Monitored Anesthesia Care with spinal Peripheral Block Type: Saphenous/Adductor Approach: Median parapatellar Findings: Advanced DJD left knee Estimated Blood Loss: 75 mls Specimens: None Complications: None Implant: Implant Name Type Inv. Item Serial No. Billboard Mechanic Lot No. [id number] No. Used Action INSERT PERSONA 6-9 C-D POLYETHYLENE 10MM ARTICULAR POSTERIOR STABILIZED - [id number] Joint - Knee INSERT PERSONA 6-9 C-D POLYETHYLENE 10MM ARTICULAR POSTERIOR STABILIZED [employer] [id number] Left 1 Implanted COMPONENT 29MM ALL POLY PATELLAR PSN - [id number] Joint - Knee COMPONENT 29MM ALL POLY PATELLAR PSN [employer] [id number] Left 1 Implanted COMPONENT PERSONA 6 NARROW COCR FEMORAL CEMENTED POSTERIOR STABILIZE KNEE - [id number] Joint - Knee COMPONENT PERSONA 6 NARROW COCR FEMORAL CEMENTED POSTERIOR STABILIZE KNEE [facility] [id number] Left 1 Implanted BASEPLATE PERSONA 5D D TIVANIUM TIBIAL CEMENTED STEM KNEE LEFT - [id number] Joint BASEPLATE PERSONA 5D D TIVANIUM TIBIAL CEMENTED STEM KNEE LEFT [employer] [id number] Left 1 Implanted CEMENT SIMPLEX P BONE RADIOPAQUE FULL DOSE STERILE - [id number] Cement / Putty CEMENT SIMPLEX P BONE RADIOPAQUE FULL DOSE STERILE STRY/[facility] [id number] Left 1 Implanted Bearing Surface: Fixed Fixation: Cemented SSI Risk Factors: NA Constraint: Posterior Stabilized Other: None Pre-Op/Pre-Procedure Diagnosis: DJD left knee Post-Op/Post-Procedure Diagnosis: DJD left knee Weight Bearing Status: Weight Bearing As Tolerated SIGNATURE: Taz Dean DO PATIENT NAME: Gilda Sorto DATE: December 05, 2019 TIME: 10:36 AM PAGER/CONTACT #: [facility] CASE MGT INIT [facility] 2019 CASE MGT INIT [facility] HNO ID: [id number] Author: Yanna (Rn) LOAN Barriga Service: Care Management Author Type: Registered Nurse Type: Care Mgt Initial Assessment Filed: 12/05/2019 1:53 PM Note Text: CARE MANAGEMENT: ASSESSMENT AND DISCHARGE PLAN SERVICE DATE: December 05, 2019 SERVICE TIME: 1:52 PM PRIMARY CARE PHYSICIAN: Gonsalo Hubbard MD ADMISSION STATUS: Ambulatory Surgery MEDICAL: [employer] MEDICARE 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 Last discharge within 30 days: No Advance Directive: Current Advance Directive: Health Care Power of Job Tracer;Living Will In Chart: Yes Up To Date [...] Contact: Fareed Sorto Address: [address] [place] [address] [facility] Mobile Relation: Spouse Supportive [...] Completely I feel financially burdened by my [id number] expenses for my prescription medication:: 0 - Disagree Completely Risk Score: 0 Patient is categorized as: Low risk < 2 Are you interested in bedside delivery of your medications? Yes Is Patient Psychosocially Complex?: No ASSESSMENT AND PLAN: Medical Needs: Medical Needs: None Psychosocial Needs: Psychosocial Needs: None FREEDOM OF CHOICE EXPLAINED: [place] of Choice Given: No Reason Not Given: No placements necessary POTENTIAL TRANSITION PLANS Outpatient Therapy Patient from home with spouse. Has equipment. Has OP PT on 12/09 at 11:45 in [place]. SIGNATURE: Yanna Barriga RN PATIENT NAME: Gilda Sorto DATE: December 05, 2019 TIME: 1:52 PM PAGER/CONTACT #: [phone] [facility] NURSING PROGon 12-05-2019 NURSING PROG HNO ID: [id number] Author: Ekaterina NavasRn) LOAN Erickson Service: Nursing Author Type: Registered Nurse Type: Nursing Progress Note Filed: 12/05/2019 12:58 PM Note Text: Nursing Progress Note Patient Name: Gilda Sorto Patient Location: AV Surgery/AV Surgery Daily Note: Patient arrived in room 510 via bed transport. Patient alert and oriented x 3. This note was completed by: Ekaterina Erickson RN [facility] OPERATIVE NOon 12-05-2019 OPERATIVE NO HNO ID: [id number] Author: Taz Dean Service: Orthopaedic Surgery Author Type: Physician Type: Operative Report Filed: 12/05/2019 8:42 PM Note Text: [facility] OPERATIVE REPORT PATIENT NAME: Gilda Sorto AGE: [age] year old SEX: female LOG ID: [id number] SURGERY DATE: 12/05/2019 SURGEON: Taz Dean D.O. DIVERSITY MANAGER: Gavin Ballard PA-C, her role in the [...] position, the tibia was prepared using the Glue Networksstack reamer and keel?punch.? A trial tibial tray [...] patellar bone calipers?were? used?to measure the patient's [place] patella and guide the amount of?bone resection needed.? Following this, the articular side of the patella was? resected?with a?bone saw, taking the appropriate amount of bone from the patella.??The? patellar sizing guide was then positioned?and?the patient?matched a 29-mm patellar component.? The appropriate size patellar guide was?positioned and the [address] were drilled. The 29-mm trial patellar [...] followed by interrupted #1?Vicryl suture in a [id number] alternating fashion, sealing off the remaining portions [...] DATE: December 05, 2019 TIME: 8:33 PM [facility] PT EDon 12-05-2019 PT ED HNO ID: [id number] Author: Jazz (Rn) LOAN Hilario Service: ? Author Type: Registered Nurse Type: Patient Education Filed: 12/05/2019 6:55 AM Note Text: PRE OP LEARNING ASSESSMENT PROCEDURE/SURGERY: left TKR READINESS TO LEARN COGNITIVE ABILITY: Alert and oriented MOTIVATION TO LEARN: Eager FAMILY SUPPORT: None - Unavailable/disinterest ed PATIENT LEARNS BEST BY: Individual Instruction FACTORS AFFECTING LEARNING: None PHYSICAL LIMITATIONS AFFECTING LEARNING: None [facility] THERAPY NTon 12-05-2019 THERAPY NT HNO ID: [id number] Author: Yadira (PtElayne Sher Service: Physical Therapy Author Type: Physical Therapist Type: Therapy (PT/OT/Speech/Resp) Filed: 12/05/2019 5:45 PM Note Text: Physical Therapy Evaluation SERVICE DATE: 12/05/2019 SERVICE TIME: to 1703 ROOM: [place] [address] Recommended Discharge Disposition: Outpatient Physical Therapy Anticipated [...] on feet;Difficulty walking-musculoskeletal Interventions Provided: Evaluation;Gait Training (54710);Therapeutic Exercise (37553) $ Evaluation-Low (58505) Billed Units: 1 unit Therapeutic Exercise (98784) Treatment Minutes: 10 1 unit Skilled Intervention(s): Instruction in therapeutic exercise Verbal and tactile cuing provided for proper HEP completion Education in knee precautions and pain science Gait Training (49757) Treatment Minutes: 13 1 unit Skilled Intervention(s): [...] DATE: December 05, 2019 TIME: 5:30 PM [facility] Type and Screenon 12-05-2019 ABO/RH(D) Positive [facility] CNPNon 12-04-2019 CNPN Telephone (AVPRAD) NOREENGILDA ([id number]) 1950 F Date Time Provider Department 12/04/19 [...] left knee [M17.12] 10/13/2017 Breast asymmetry between [place] breast and jennifer*12/02/2017 More... S/P partial mastectomy, right [Z90.11] 12/02/2017 More... History of breast cancer [Z85.3] 12/02/2017 More... Mass of left knee [R22.42] 01/05/2018 Tear of lateral meniscus of left knee [S83.282A]01/06/2018 More... Complex tear of lateral meniscus of left knee a*01/06/2018 Encounter Status:Closed by NELLIE GAVIN Felipe on 12/04/19 [facility] NURSING PROGon 11-26-2019 NURSING PROG HNO ID: [id number] Author: Stephanie Cuevas (Rn) LOAN Bryant Service: [...] Bryant RN November 30, 2019 10:58 AM [facility] HOSPon 11-01-2019 HOSP Patient:Gilda Sorto [...] of left knee [M17.12] Breast asymmetry between [place] breast and reconstructed breast [N65.1] S/P partial [...] virus test. Gavin Ballard PA-C Progress Notes ([facility]): Ashleigh Alex APRN.AMARI 11/28/2019 8:45 AM Signed Please call patient and advise that on pre-op labs UA showed leukocytes and urine culture revealed possible contaimination Due to surgery being 12/04- will treat with low dose antibiotics for possible infection Rx for Macrobid sent to pharmacy. Advise to start AMBER and take BID for 7 days Thank you Ashleigh Alex APRN.[facility] Na Beltre LPN 11/28/2019 8:56 AM Signed Patient aware. Pharmacy verified. Will pickling machine operator and start first does this am. Na Bletre LPN [facility] Vital Signs Date Time Vital Sign Value Performing Clinician Facility 01-07-2025 14:33-0400 Diastolic blood pressure 82 mm[Hg] Carrie Blanco TOPPER PRESS OPERATOR AUTOMATIC Work Phone: [facility] 01-07-2025 14:33-0400 Heart rate 90 /min Carrie Blanco TOPPER PRESS OPERATOR AUTOMATIC Work Phone: [facility] 01-07-2025 14:33-0400 Respiratory rate 16 /min Carrie Blanco TOPPER PRESS OPERATOR AUTOMATIC Work Phone: [facility] 01-07-2025 14:33-0400 SaO2% (BldA) [Mass fraction] 98 % Carrie Blanco TOPPER PRESS OPERATOR AUTOMATIC Work Phone: [facility] 01-07-2025 14:33-0400 Systolic blood pressure 138 mm[Hg] Carrie Blanco TOPPER PRESS OPERATOR AUTOMATIC Work Phone: [facility] 12-06-2024 13:43-0400 Body height 158.09 cm Gonsalo Hubbard MD Work Phone: [facility] 12-06-2024 13:43-0400 Body mass index (BMI) [Ratio] 36.3 kg/m2 Gonsalo Hubbard MD Work Phone: [facility] 12-06-2024 13:43-0400 Body weight 90.95 kg Gonsalo Hubbard MD Work Phone: [facility] 12-06-2024 13:43-0400 Diastolic blood pressure 82 mm[Hg] Gonsalo Hubbard MD Work Phone: [facility] 12-06-2024 13:43-0400 Heart rate 86 /min Gonsalo Hubbard MD Work Phone: [facility] 12-06-2024 13:43-0400 Respiratory rate 18 /min Gonsalo Hubbard MD Work Phone: [facility] 12-06-2024 13:43-0400 Systolic blood pressure 151 mm[Hg] Gonsalo Hubbard MD Work Phone: [facility] 10-01-2024 14:26-0400 Body temperature 97 [degF] Zana Fuchs TOPPER PRESS OPERATOR AUTOMATIC Work Phone: [facility] 10-01-2024 14:26-0400 Diastolic blood pressure 82 mm[Hg] Zana Fuchs TOPPER PRESS OPERATOR AUTOMATIC Work Phone: [facility] 10-01-2024 14:26-0400 Heart rate 96 /min Zana Fuchs TOPPER PRESS OPERATOR AUTOMATIC Work Phone: [facility] 10-01-2024 14:26-0400 Respiratory rate 20 /min Zana Fuchs TOPPER PRESS OPERATOR AUTOMATIC Work Phone: [facility] 10-01-2024 14:26-0400 SaO2% (BldA) [Mass fraction] 98 % Zana Fuchs TOPPER PRESS OPERATOR AUTOMATIC Work Phone: [facility] 10-01-2024 14:26-0400 Systolic blood pressure 138 mm[Hg] Zana Fuchs TOPPER PRESS OPERATOR AUTOMATIC Work Phone: [facility] 10-01-2024 14:23-0400 Body mass index (BMI) [Ratio] 35.11 kg/m2 Zana Fuchs TOPPER PRESS OPERATOR [employer]OMATIC Work Phone: [facility] 10-01-2024 14:23-0400 Body weight 89.9 kg Zana Fuchs TOPPER PRESS OPERATOR AUTOMATIC Work Phone: [facility] 09-20-2024 09:14-0400 Body height 160 cm Summer Workman PA Work Phone: [facility] 09-20-2024 09:14-0400 Body mass index (BMI) [Ratio] 34.54 kg/m2 Summer Workman PA Work Phone: [facility] 09-20-2024 09:14-0400 Body weight 88.45 kg Summer Workman PA Work Phone: [facility] 09-20-2024 09:14-0400 Diastolic blood pressure 80 mm[Hg] Summer Workman PA Work Phone: [facility] 09-20-2024 09:14-0400 Heart rate 85 /min Summer Workman PA Work Phone: [facility] 09-20-2024 09:14-0400 SaO2% (BldA) [Mass fraction] 98 % Summer Workman PA Work Phone: [facility] 09-20-2024 09:14-0400 Systolic blood pressure 128 mm[Hg] Summer Workman PA Work Phone: [facility] 05-07-2024 09:56-0500 Body height 160 cm Myraim Risaliti TOPPER PRESS OPERATOR AUTOMATIC Work Phone: [facility] 05-07-2024 09:56-0500 Body mass index (BMI) [Ratio] 34.19 kg/m2 Myriam Risaliti TOPPER PRESS OPERATOR AUTOMATIC Work Phone: [facility] 05-07-2024 09:56-0500 Body weight 87.54 kg Myriam Risaliti TOPPER PRESS OPERATOR AUTOMATIC Work Phone: [facility] 05-07-2024 09:56-0500 Diastolic blood pressure 80 mm[Hg] Myriam Risaliti TOPPER PRESS OPERATOR AUTOMATIC Work Phone: [facility] 05-07-2024 09:56-0500 Heart rate 82 /min Myriam Risaliti TOPPER PRESS OPERATOR AUTOMATIC Work Phone: [facility] 05-07-2024 09:56-0500 SaO2% (BldA) [Mass fraction] 98 % Myriam Brandenaliti TOPPER PRESS OPERATOR AUTOMATIC Work Phone: [facility] 05-07-2024 09:56-0500 Systolic blood pressure 122 mm[Hg] Myriam Risaliti TOPPER PRESS OPERATOR AUTOMATIC Work Phone: [facility] 05-01-2024 15:11-0500 Body height 160 cm Summer Workman PA Work Phone: [facility] 05-01-2024 15:11-0500 Body mass index (BMI) [Ratio] 34.19 kg/m2 Summer Workman PA Work Phone: [facility] 05-01-2024 15:11-0500 Body weight 87.54 kg Summer Workman PA Work Phone: [facility] 05-01-2024 15:11-0500 Diastolic blood pressure 64 mm[Hg] Summer Workman PA Work Phone: [facility] 05-01-2024 15:11-0500 Heart rate 71 /min Summer Workman PA Work Phone: [facility] 05-01-2024 15:11-0500 SaO2% (BldA) [Mass fraction] 98 % Summer Workman PA Work Phone: [facility] 05-01-2024 15:11-0500 Systolic blood pressure 124 mm[Hg] Summer Workman PA Work Phone: [facility] 03-19-2024 10:54-0500 Body height 160 cm Delfin Sears PA-C Work Phone: [facility] 03-19-2024 10:54-0500 Body mass index (BMI) [Ratio] 34.54 kg/m2 Delfin Sears PA-C Work Phone: [facility] 03-19-2024 10:54-0500 Body temperature 98.2 [degF] Delfin Sears PA-C Work Phone: [facility] 03-19-2024 10:54-0500 Body weight 88.45 kg Delfin Sears PA-C Work Phone: [facility] 03-19-2024 10:54-0500 Diastolic blood pressure 67 mm[Hg] Delfin Sears PA-C Work Phone: [facility] 03-19-2024 10:54-0500 Heart rate 89 /min Delfin Sears PA-C Work Phone: [facility] 03-19-2024 10:54-0500 Systolic blood pressure 130 mm[Hg] Delfin Sierrafield PA-C Work Phone: [facility] 03-15-2024 08:39-0400 Body height 160 cm Summer [...] 02-28-2024 15:03-0400 Systolic blood pressure 118 mm[Hg] [facility] Workman PA Work Phone: [facility] 02-21-2024 12:55-0400 Body height 160.02 cm MD Gonsalo Hubbard Work Phone: [facility] 02-21-2024 12:55-0400 Body temperature 97.8 [degF] MD Gonsalo Hubbard Work Phone: [facility] 02-21-2024 12:55-0400 Body weight 91 kg MD Gonsalo Hubbard Work Phone: [facility] 02-21-2024 12:55-0400 Diastolic blood pressure 87 mm[Hg] MD Gonsalo Hubbard Work Phone: [facility] 02-21-2024 12:55-0400 Heart rate 93 /min MD Gonsalo Hubbard Work Phone: [facility] 02-21-2024 12:55-0400 Respiratory rate 18 /min MD Gonsalo Hubbard Work Phone: [facility] 02-21-2024 12:55-0400 SaO2% (BldA) [Mass fraction] 99 % MD Gonsalo Hubbard Work Phone: [facility] 02-21-2024 12:55-0400 Systolic blood pressure 145 mm[Hg] MD Gonsalo Hubbard Work Phone: [facility] 06-30-2023 09:46-0500 Body mass index (BMI) [Ratio] 35.07 kg/m2 Vandana Warren TOPPER PRESS OPERATOR AUTOMATIC Work Phone: [facility] 06-30-2023 09:46-0500 Body temperature 97.11 [degF] Vandana Guanon TOPPER PRESS OPERATOR AUTOMATIC Work Phone: [facility] 06-30-2023 09:46-0500 Body weight 89.81 kg Vandana Warren TOPPER PRESS OPERATOR AUTOMATIC Work Phone: [facility] 06-30-2023 09:46-0500 Diastolic blood pressure 80 mm[Hg] Vandana Guanon TOPPER PRESS OPERATOR AUTOMATIC Work Phone: [facility] 06-30-2023 09:46-0500 Heart rate 96 /min Vandana Guanon TOPPER PRESS OPERATOR AUTOMATIC Work Phone: [facility] 06-30-2023 09:46-0500 SaO2% (BldA) [Mass fraction] 97 % Vandana Warren TOPPER PRESS OPERATOR AUTOMATIC Work Phone: [facility] 06-30-2023 09:46-0500 Systolic blood pressure 128 mm[Hg] Vandana Guanon TOPPER PRESS OPERATOR AUTOMATIC Work Phone: [facility] 04-16-2022 11:52-0500 Body temperature 98.1 [degF] Sharon Rg APRN.RETOUCHING OPERATOR Work Phone: [facility] 04-16-2022 11:52-0500 Diastolic blood pressure 60 mm[Hg] Sharon Rg APRN.RETOUCHING OPERATOR Work Phone: [facility] 04-16-2022 11:52-0500 Heart rate 85 /min Sharon Rg APRN.RETOUCHING OPERATOR Work Phone: [facility] 04-16-2022 11:52-0500 Respiratory rate 20 /min Sharon Rg APRN.RETOUCHING OPERATOR Work Phone: [facility] 04-16-2022 11:52-0500 SaO2% (BldA) [Mass fraction] 100 % Sharon Rg APRN.RETOUCHING OPERATOR Work Phone: [facility] 04-16-2022 11:52-0500 Systolic blood pressure 117 mm[Hg] Sharonkraig Rg [employer] BUSINESS SEGMENT LEADER.RETOUCHING OPERATOR Work Phone: [facility] Encounters Encounter Date Encounter Type Care Provider Facility Start: 01-07-2025 End: 01-07-2025 Office outpatient visit 15 minutes Carrie Blanco TOPPER PRESS OPERATOR AUTOMATIC Work Phone: [facility] Comment on above: Acute pain of right knee (Primary Dx); History of fall; Swelling of right knee Start: 01-07-2025 End: 01-07-2025 ambulatory CARRIE BLANCO Not Available Start: 12-19-2024 End: 12-19-2024 ambulatory Gonsalo Hubbard MD Work Phone: [facility] Work Phone: Start: 12-19-2024 End: 12-19-2024 Patient encounter procedure Donya Ortiz [facility] Work Phone: Start: 12-06-2024 End: 12-06-2024 ambulatory Gonsalo Hubbard MD Work Phone: [facility] Work Phone: Start: 12-06-2024 End: 12-06-2024 Patient encounter procedure Chelsey Barnett [facility] Work Phone: Start: 10-25-2024 End: 10-25-2024 Refill Gi Barnett Workman PA Work Phone: [facility] Comment on above: Primary insomnia; SIOBHAN (generalized anxiety disorder) Start: 10-01-2024 End: 10-01-2024 Office outpatient visit 25 minutes Zana Fuchs TOPPER PRESS OPERATOR AUTOMATIC Work Phone: [facility] Comment on above: Acute cough (Primary Dx); Bronchitis Start: 10-01-2024 End: 10-01-2024 ambulatory ZANA FUCHS Not Available Start: 09-20-2024 End: 09-20-2024 Office outpatient visit 25 minutes Gi M Workman PA Work Phone: [facility] IM Comment on above: Essential hypertensi on (CMS/HCC) (Primary Dx); Peripheral venous insufficiency; Stage 3a chronic kidney disease (HCC) (CMS/HCC); Primary osteoarthritis involving multiple joints; Other fatigue Start: 09-20-2024 End: 09-20-2024 ambulatory summer WORKMAN Not Available Start: 09-05-2024 End: 09-05-2024 Patient encounter procedure Gonsalo Hubbard MD Work Phone: [facility] Work Phone: Start: 09-05-2024 End: 09-05-2024 ambulatory Gonsalo Hubbard MD Work Phone: [facility] Work Phone: Start: 05-11-2024 End: 05-11-2024 ambulatory MYRIAM BERMUDEZ Not Available Start: 05-11-2024 End: 05-11-2024 Office outpatient visit 15 minutes Myriam Bermudez NP Work Phone: [facility] IM Comment on above: Impacted cerumen of right ear (Primary Dx) Start: 05-07-2024 End: 05-07-2024 Clinical Support Myriam Bermudez NP Work Phone: [facility] IM Comment on above: Right ear impacted c erumen (Primary Dx) Start: 05-01-2024 End: 05-01-2024 Office outpatient visit 25 minutes summer Workman PA Work Phone: [facility] IM Comment on above: Essential hypertensi on (CMS/HCC) (Primary Dx); Stage 3a chronic kidney disease (HCC) (CMS/HCC); Primary hyperparathyroidism (CMS/HCC); Mild major depression (HCC) (CMS/HCC); SIOBHAN (generalized anxiety disorder) (CMS/HCC); Primary insomnia; Gastroesophageal reflux disease without esophagitis; Medicare annual wellness visit, subsequent; ACP (advance care planning); Vitamin D deficiency; Screening for lipid disorders; Postmenopausal syndrome; Screening mammogram for breast cancer Start: 05-01-2024 End: 05-01-2024 Patient encounter procedure summer Work PA Work Phone: [facility] Start: 05-01-2024 End: 05-01-2024 ambulatory SUMMER M WORKMAN Not Available Start: 04-23-2024 End: 04-23-2024 External Result Encounter Myriam Bermudez TOPPER PRESS OPERATOR [employer]OMATIC Work Phone: [facility] External Department Unsolicited Start: 04-23-2024 End: 04-23-2024 External Result Encounter Myriam Bermudez TOPPER PRESS OPERATOR [employer]ATIC Work Phone: [facility] External Department Unsolicited Start: 04-23-2024 End: 04-23-2024 ambulatory [facility] Facility:[facility] Start: 04-17-2024 End: 04-17-2024 ambulatory [facility] Facility:[facility] Start: 03-19-2024 End: 03-19-2024 Patient encounter procedure Delfin Sears PA-C Work Phone: Plastic Surgery Comment on above: Pain in both hands ( Primary Dx) Start: 03-19-2024 End: 03-19-2024 ambulatory [facility] Facility:[facility] Start: 03-16-2024 End: 03-16-2024 ambulatory SUMMER M WORKMAN Not Available Start: 03-15-2024 End: 03-15-2024 Office outpatient visit 15 minutes Summer M Workman PA Work Phone: [facility] Comment on above: Right leg pain (Prim chris Dx); Contusion of right lower leg, subsequent encounter Start: 03-15-2024 End: 03-15-2024 ambulatory SUMMER M WORKMAN Not Available Start: 02-28-2024 End: 02-28-2024 ambulatory SUMMER M WORKMAN Not Available Start: 02-28-2024 End: 02-28-2024 Office outpatient visit 25 minutes Summer M Workman PA Work Phone: [facility] Comment on above: Contusion of right l ower leg, initial encounter (Primary Dx); Pain in right lower leg; Traumatic hematoma of right lower leg, initial encounter Start: 02-28-2024 End: 02-28-2024 ambulatory SUMMER M WORKMAN Not Available Start: 02-21-2024 End: 02-21-2024 Emergency department patient visit MD Gonsalo Hubbard Work Phone: [facility] Work Phone: Start: 06-30-2023 End: 06-30-2023 Office outpatient visit 15 minutes Vandana Warren NP Work Phone: [facility] Comment on above: Viral upper respirat ory tract infection (Primary Dx); Cough, unspecified type; Insomnia, unspecified type; Morbid obesity (CMS/HCC); History of breast cancer Start: 04-12-2023 End: 04-12-2023 ambulatory [facility] Facility:[facility] Start: 04-12-2023 End: 04-12-2023 Subsequent hospital visit by physician Xr [facility] Work Phone: Radiology Comment on above: Pain [R52] Start: 05-04-2022 ambulatory JALEN GOBEZIE Facility :UNKNOWN Start: 04-16-2022 Documentation procedure Mammog samantha Coordinator [facility] Start: 04-16-2022 Letter encounter Mammography Coordinator [facility] Department Start: 04-16-2022 End: 04-16-2022 ambulatory Sharon Rg [employer] BUSINESS SEGMENT LEADER.RETOUCHING OPERATOR Work Phone: Hematology/Oncology Comment on above: Encounter for screen ing mammogram for breast cancer (Primary Dx); Stage 1 breast cancer, ER-, left (HCC) Start: 04-16-2022 End: 04-16-2022 Patient encounter procedure Sharon Rg [employer] BUSINESS SEGMENT LEADER.RETOUCHING OPERATOR Work Phone: [facility] Start: 04-16-2022 End: 04-16-2022 Subsequent [...] Start: 11-20-2021 Orders Only Sharon Shirley son [employer] BUSINESS SEGMENT LEADER.RETOUCHING OPERATOR Work Phone: Hematology/Oncology Comment on above: Encounter [...] 12-04-2020 Subsequent hospital visit by physician [facility] Comment on above: S/P total knee arthr oplasty, left [Z96.652] Start: 04-01-2020 End: 04-01-2020 Subsequent hospital visit by physician [facility]r [facility] Work Phone: Radiology Comment on above: post op Start: 12-20-2019 End: 12-20-2019 [facility] Comment on above: Primary osteoarthrit is of left knee [M17.12] Procedures Date Procedure Procedure Detail Performing Clinician Start: 09-05-2024 Screening mammography of bilateral breasts Gonsalo Hubbard MD Work Phone: Start: 04-23-2024 Assay of parathormone Myriam Mason Bermudez TOPPER PRESS OPERATOR AUTOMATIC Work Phone: Start: 04-23-2024 Complete blood count with white cell differential, automated Myriam Bermudez TOPPER PRESS OPERATOR AUTOMATIC Work Phone: Start: 04-23-2024 Urine albumin quantitative Myriam Mason Bermudez TOPPER PRESS OPERATOR AUTOMATIC Work Phone: Start: 02-21-2024 Plain X-ray of left wrist MD Gonsalo Hubbard Work Phone: Start: 02-21-2024 X-ray of right knee, four views MD Gonsalo Hubbard Work Phone: Start: 06-30-2023 STATUS COVID-19/FLU Vandana Warren TOPPER PRESS OPERATOR AUTOMATIC Work Phone: Start: 04-12-2023 Radex hand minimum 3 views Kayla Mata MD Work Phone: Start: 04-16-2022 JAKE SCREENING W JOE Sharon Rg [employer] BUSINESS SEGMENT LEADER.RETOUCHING OPERATOR Work Phone: Start: 04-16-2022 Mammography Sharon Rg [employer] BUSINESS SEGMENT LEADER.RETOUCHING OPERATOR Work Phone: Start: 11-25-2021 Ct angio abd&plvis cntrst mtrl w/wo cntrst img Paco Ramirez MD Work Phone: Start: 11-25-2021 Creatinine [Mass/volume] in Serum or Plasma [facility] Provider Start: 12-04-2020 Radiologic exam knee complete 4/more views Taz Dean DO Work Phone: Start: 11-24-2020 Mammography Paco Ramirez MD Work Phone: Start: 11-21-2020 Adult depression screening assessment Paco Ramirez MD Work Phone: Start: 11-05-2020 Colonoscopy Vandana Warren NP Work Phone: Start: 04-01-2020 Radiologic examination knee 3 views Gavin Ballard PA-C Work Phone: Start: 12-20-2019 Radiologic exam knee complete 4/more views Gavin GOODWIN-Angeli Work Phone: Start: 12-05-2019 Antibody screen Start: 12-02-2017 History of mastectomy S/P partial mastectomy, right Paco Ramirez MD Work Phone: Start: 09-06-2012 Lipid 1996 panel - Serum or Plasma [facility] H/O: hysterectomy H/O: hysterectomy Miquel Hubbard MD Work Phone: H/O: hysterectomy H/O: hysterectomy Marva Barentt DNP History of cholecystectomy Hx of cholecystectomy Chelsey Barnett DNP Plan of Treatment Date Care Activity Detail Author Start: 11-05-2030 Screening for malign ant neoplasm of colon [facility] Start: 05-01-2025 End: 07-30-2025 25-hydroxyvitamin D3 [Mass/volume] in Serum or Plasma Vitamin D 25 hydroxy Total Lab Routine Vitamin D deficiency Expected: 05/01/2025 (Approximate), Expires: 07/30/2025 [facility] Work Phone: Comment on above: Expected: 05/01/2025 (Approximate), Expires: 07/30/2025 Start: 05-01-2025 End: 07-30-2025 CBC W Auto Differential panel - Blood CBC and differential Lab Routine Essential hypertension (CMS/HCC) Expected: 05/01/2025 (Approximate), Expires: 07/30/2025 [facility] Comment on above: Expected: 05/01/2025 (Approximate), Expires: 07/30/2025 Start: 05-01-2025 End: 07-30-2025 Comprehensive metabolic 2000 panel - Serum or Plasma Comprehensive metabolic panel Lab Routine Essential hypertension (CMS/HCC) Expected: 05/01/2025 (Approximate), Expires: 07/30/2025 [facility] Comment on above: Expected: 05/01/2025 (Approximate), Expires: 07/30/2025 Start: 05-01-2025 End: 07-30-2025 Lipid 1996 panel - Serum or Plasma Lipid panel Lab Routine Screening for lipid disorders Expected: 05/01/2025 (Approximate), Expires: 07/30/2025 [facility] Comment on above: Expected: 05/01/2025 (Approximate), Expires: 07/30/2025 Start: 05-01-2025 Medicare Annual Wellness (AWV) Medicare Annual Wellness (AWV) [facility] Start: 05-01-2025 End: 07-30-2025 Microalbumin/Creatinine panel in random Urine Microalbumin / creatinine urine ratio Lab Routine Essential hypertension (CMS/HCC) Expected: 05/01/2025 (Approximate), Expires: 07/30/2025 [facility] Comment on above: Expected: 05/01/2025 (Approximate), Expires: 07/30/2025 Start: 05-01-2025 End: 07-30-2025 Parathyrin.intact [Mass/volume] in Serum or Plasma PTH, intact Lab Routine Stage 3a chronic kidney disease (HCC) ([facility]) Expected: 05/01/2025 (Approximate), Expires: 07/30/2025 [facility] Comment on above: Expected: 05/01/2025 (Approximate), Expires: 07/30/2025 Start: 05-01-2025 End: 07-30-2025 Phosphate [Moles/volume] in Serum or Plasma Phosphorus Lab Routine Stage 3a chronic kidney disease (HCC) ([facility]) Expected: 05/01/2025 (Approximate), Expires: 07/30/2025 [facility] Comment on above: Expected: 05/01/2025 (Approximate), Expires: 07/30/2025 Start: 05-01-2025 End: 07-30-2025 Urinalysis complete panel - Urine Urinalysis with microscopic Lab Routine Essential hypertension ([facility]) Expected: 05/01/2025 (Approximate), Expires: 07/30/2025 [facility] Comment on above: Expected: 05/01/2025 (Approximate), Expires: 07/30/2025 Start: 04-30-2025 End: 04-30-2025 Patient encounter procedure [facility] Start: 01-14-2025 Influenza vaccination Influenza Vacc ine (#1) [facility] Start: 12-09-2024 Diabetes Screening Diabetes Screenin [facility] Start: 09-20-2024 End: 12-21-2024 JESSICA by IFA, Reflex to Titer and Pattern JESSICA by IFA, Reflex to Titer and Pattern Lab Routine Primary osteoarthritis involving multiple joints Expected: 09/20/2024 (Approximate), Expires: 12/21/2024 [facility] Comment on above: Expected: 09/20/2024 (Approximate), Expires: 12/21/2024 Start: 09-20-2024 End: 12-21-2024 Cyclic citrul peptide antibody, IgG Cyclic citrul peptide antibody, IgG Lab Routine Primary osteoarthritis involving multiple joints Expected: 09/20/2024 (Approximate), Expires: 12/21/2024 [facility] Work Phone: Comment on above: Expected: 09/20/2024 (Approximate), Expires: 12/21/2024 Start: 09-20-2024 End: 12-21-2024 Erythrocyte sedimentation rate Sedimentation rate, automated Lab Routine Primary osteoarthritis involving multiple joints Expected: 09/20/2024 (Approximate), Expires: 12/21/2024 [facility] Comment on above: Expected: 09/20/2024 (Approximate), Expires: 12/21/2024 Start: 09-20-2024 End: 12-21-2024 Thyrotropin [Units/volume] in Serum or Plasma TSH Lab Routine Other fatigue Expected: 09/20/2024 (Approximate), Expires: 12/21/2024 [facility] Comment on above: Expected: 09/20/2024 (Approximate), Expires: 12/21/2024 Start: 05-11-2024 End: 05-11-2024 Patient encounter procedure 05/11/2024 8:15 AM EST Office Visit [facility] [address] [place] [address] Myriam Bermudez [employer] [address] [place] [address] [facility] Start: 05-07-2024 End: 05-07-2024 Clinical Support 05/07/2024 9:45 AM EST Clinical Support [facility] [address] [place] [id number] Myriam Bermudez [employer] [address] [place] [address] [facility] Start: 05-01-2024 End: 05-01-2024 Patient encounter procedure 05/01/2024 3:00 PM EST Office Visit [facility] [address] [place] [id number] Gi Blandon PA [address] [place] [address] [facility] Start: 04-26-2024 Medicare Annual Wellness (AWV) Medicare Annual Wellness (AWV) [facility] Start: 04-24-2024 End: 04-24-2024 Patient encounter procedure [facility] Start: 04-19-2024 Screening for malign ant neoplasm of breast Mammogram Screening [facility] Start: 03-16-2024 End: 03-16-2024 Professional / ancillary services management 03/16/2024 1:45 PM EDT Ancillary Procedure [facility] [address] [place] [address] [facility] [address] Start: 01-15-2024 Covid-19 Vaccine () Covid-19 Vaccine () [facility] Start: 01-15-2024 Influenza vaccination Influenza Vacc ine (#1) [facility] Start: 11-25-2023 DIABETES SCREEN DIABETES SCREEN [facility] Start: 11-25-2023 Diabetes Screening Diabetes Screenin g [facility] Start: 05-16-2023 Advance Directive Discussion Advance Directive Discussion [facility] Start: 04-16-2023 BP CONTROLLED (<130/80) BP CONTROLLE D (<130/80) [facility] Start: 04-16-2023 End: 05-16-2023 JAKE SCREENING JAKE SCREENING Radiology Routine Encounter for screening mammogram for breast cancer Expected: 04/16/2023, Expires: 05/16/2023 [facility] Work Phone: Comment on above: Expected: 04/16/2023 , Expires: 05/16/2023 Start: 04-16-2023 Mammography [facility] Start: 04-16-2023 Screening for malign ant neoplasm of breast Mammogram Screening [facility] Start: 01-14-2023 Covid-19 Vaccine () Covid-19 Vaccine () [facility] Start: 01-14-2023 Influenza vaccination Influenza Vacc ine (#1) [facility] Start: 05-16-2022 Advance Directive Discussion Advance Directive Discussion [facility] Start: 05-16-2022 Depression Assessment Depression Ass essment [facility] Start: 01-14-2022 Influenza vaccination INFLUENZA (#1) [facility] Start: 11-24-2021 Mammography MAMMOGRAM [facility] Start: 11-21-2021 Adult depression screening assessment DEPRESSION SCREENING [facility] Start: 09-23-2021 End: 11-23-2021 CREATININE BLD CREATININE BLD Lab Routine Renal artery aneurysm (HCC) Expected: 09/23/2021, Expires: 11/23/2021 [facility] Work Phone: Comment on above: Expected: 09/23/2021 , Expires: 11/23/2021 Start: 08-08-2021 COVID-19 VACCINE (3 - Booster for Moderna series) COVID-19 VACCINE (3 - Booster for Moderna series) [facility] Start: 07-11-2021 COVID-19 VACCINE (4 - Booster for Moderna series) COVID-19 VACCINE (4 - Booster for Moderna series) [facility] Start: 05-16-2021 ADVANCE DIRECTIVE DISCUSSION ADVANCE DIRECTIVE DISCUSSION [facility] Start: 05-16-2021 DEPRESSION ASSESSMENT DEPRESSION ASS ESSMENT [facility] Start: 09-06-2017 Lipid 1996 panel - Serum or Plasma Lipid Screening [facility] Start: 09-06-2017 Lipid panel Lipid Screening [facility] Start: 09-06-2017 LIPID SCREEN LIPID SCREEN [facility] Start: 2015 BONE DENSITY BONE DENSITY [facility] Start: 2015 Bone Density Screening Bone Density Screening [facility] Start: 2015 PNEUMOCOCCAL: 65+ (1 - PCV) PNEUMOCOCCAL: 65+ (1 - PCV) [facility] Start: 2015 PNEUMOVAX AGE 65 AND OVER WITH 5YR LOOKBACK (#1) PNEUMOVAX AGE 65 AND OVER WITH 5YR LOOKBACK (#1) [facility] Start: 2015 Screening for osteoporosis Bone Density Screening [facility] Start: 11-08-2014 Urine microalbumin profile DTaP,Tdap,Td Vaccine (1 - Tdap) [facility] Start: 2010 RSV Vaccine (1 - 1-d ose 60+ series) RSV Vaccine (1 - 1-dose 60+ series) [facility] Start: 2010 RSV Vaccine (1 - Ris k 60-74 years 1-dose series) RSV Vaccine (1 - Risk 60-74 years 1-dose series) [facility] Start: 2000 SHINGRIX VACCINE (1 of 2) SHINGRIX VACCINE (1 of 2) [facility] Start: 1995 COLOGUARD (FIT-DNA) COLOGUARD (FIT-D NA) [facility] Start: 1995 Colonoscopy COLONOSCOPY [facility] Start: 1995 COLORECTAL CANCER SCREENING COLORECTAL CANCER SCREENING [facility] Start: [address] COLONOGRAPHY [facility] Start: 1995 FECAL OCCULT BLOOD FECAL OCCULT BLOO D [facility] Start: 1995 Screening for malign ant neoplasm of colon [facility] Start: 1995 SIGMOIDOSCOPY SIGMOIDOSCOPY [facility] Start: 1969 Urine microalbumin profile DTAP,TDAP,TD (1 - Tdap) [facility] Start: 1968 ANNUAL PCP TEAM COGNOS REPORT DEVELOPER LOIS DISEASE VISIT ANNUAL PCP TEAM CHRONIC DISEASE VISIT [facility] Start: 1968 Anxiety Screening Anxiety Screening [facility] Start: 1968 BP CONTROLLED (<130/80) BP CONTROLLE D (<130/80) [facility] Start: 1968 Depression Screening Depression Scre ening [facility] Start: 1968 HEPATITIS C SCREENING HEPATITIS C [facility] Start: 1968 Hepatitis C screening Hepatitis C [facility] Start: 1950 Medicare Annual Wellness (AWV) Medicare Annual Wellness (AWV) [facility] Start: 1950 Screening for malign ant neoplasm of colon [facility] Comprehensive metabo lic 2000 panel - Serum or Plasma Comprehensive metabolic panel Lab Routine 04/23/2024 8:54 AM EST [facility] Work Phone: End: 10-23-2022 Ct angio abd&plvis cntrst mtrl w/wo cntrst img CTA ABD/PEL WO/W IVCON Radiology Routine Renal artery aneurysm (HCC) 1 Occurrences starting 09/23/2021 until 10/23/2022 [facility] Work Phone: Comment on above: 1 Occurrences starti ng 09/23/2021 until 10/23/2022 DBT Breast - bilater al screening Bilateral screening mammogram with tomosynthesis Imaging Routine Screening mammogram for breast cancer Ordered: 05/01/2024 [facility] Comment on above: Ordered: 05/01/2024 DXA Skeletal system Views for bone density DEXA bone density Imaging Routine Postmenopausal syndrome Ordered: 05/01/2024 [facility] Comment on above: Ordered: 05/01/2024 Lipid 1996 panel - Serum or Plasma Lipid panel Lab Routine 04/23/2024 8:54 AM EST [facility] Patient Education General Trauma (DC) [facility] Work Phone: Patient referral [facility] Work Phone: Phosphate [Moles/volume] in Serum or Plasma Phosphorus Lab Routine 04/23/2024 8:54 AM EST [facility] [employer] End: 12-20-2022 Screening mammography bi 2-view breast inc cad JAKE SCREENING Radiology Routine Encounter for screening mammogram for breast cancer 1 Occurrences starting 11/20/2021 until 12/20/2022 [facility] Work Phone: Comment on above: 1 Occurrences starti ng 11/20/2021 until 12/20/2022 Urinalysis complete panel - Urine Urinalysis with microscopic Lab Routine 04/23/2024 8:54 AM EST [facility] [employer] Work Phone: XR Tibia and Fibula - right 2 Views XR tibia fibula 2 views right Imaging STAT Contusion of right lower leg, initial encounter Pain in right lower leg 02/28/2024 4:09 PM EDT [facility] Work Phone: [facility] Immunizations Immunization Date Immunization Notes Care Provider [facility] 02-27-2024 Seasonal trivalent influenza vaccine, adjuvanted, preservative free Summer Jamia GOODWIN Work Phone: [facility] 02-27-2024 influenza virus vaccine, unspecified formulation Carrie Blanco [employer] Work Phone: [facility] 03-19-2023 Influenza, Seasonal, Quadrivalent, Adjuvanted Vandana Warren [employer] Work Phone: [facility] 03-19-2023 influenza virus vaccine, unspecified formulation Xr Thayer Work Phone: [facility] 03-30-2022 SARS-COV-2 (COVID-19 ) vaccine, mRNA, spike protein, LNP, bivalent, PF Vandana Chadd-Maria Esther [employer] Work Phone: [facility] 03-12-2022 Influenza, High-dose Seasonal, Quadrivalent, Preservative Free Vandana Chadd-Maria Esther [employer] Work Phone: [facility] 03-12-2022 influenza virus vaccine, unspecified formulation Xr Commons [facility] 03-10-2021 COVID-19 mRNA-1273 (Moderna) MD Gonsalo Hubbard Work Phone: [facility] 02-12-2021 Influenza, High-dose Seasonal, Quadrivalent, Preservative Free Vandana Chadd-Maria Esther [employer] Work Phone: [facility] 07-21-2020 COVID-19 vaccine, fu ll dose (MODERNA) Ct (I-Stat) Work Phone: [facility] 06-23-2020 COVID-19 vaccine, fu ll dose (MODERNA) Ct (I-Stat) Work Phone: [facility] 01-17-2020 influenza, high dose seasonal, preservative-free Vandana Chadd-Maria Esther [employer] Work Phone: [facility] 01-17-2020 influenza, injectabl e, quadrivalent, preservative free Summer Workman PA Work Phone: [facility] 12-24-2019 zoster vaccine recombinant Vandana Chadd-Maria Esther [employer] Work Phone: [facility] 10-16-2019 zoster vaccine recombinant Vandana Chadd-Maria Esther [employer] Work Phone: [facility] 03-19-2019 pneumococcal polysaccharide vaccine, 23 valent Vandana Chadd-Maria Esther [employer] Work Phone: [facility] 03-15-2019 influenza, high dose seasonal, preservative-free Summer Workman PA Work Phone: [facility] 02-20-2018 influenza, high dose seasonal, preservative-free Summer Workman PA Work Phone: [facility] 03-01-2017 pneumococcal polysaccharide vaccine, 23 valent Vandana Parkerverson [employer] Work Phone: [facility] 02-13-2017 influenza, injectabl e, quadrivalent, preservative free Vandana Florentino-Maria Esther [employer] Work Phone: [facility] 02-06-2017 influenza, high dose seasonal, preservative-free Summer Workman PA Work Phone: [facility] 12-06-2016 hepatitis A and hepatitis B vaccine Vandana Chadd-Maria Esther [employer] Work Phone: [facility] 05-28-2016 hepatitis A and hepatitis B vaccine Vandana Chadd-Maria Esther [employer] Work Phone: [facility] 04-27-2016 hepatitis A and hepatitis B vaccine Vandana Chadd-Maria Esther [employer] Work Phone: [facility] 04-27-2016 typhoid capsular polysaccharide vaccine Vandana Florentino-Maria Esther [employer] Work Phone: [facility] 03-29-2016 influenza, high dose seasonal, preservative-free Summer Workman PA Work Phone: [facility] 03-24-2015 pneumococcal conjuga te vaccine, 13 valent Vandana Parkerverson [employer] Work Phone: [facility] 03-20-2015 influenza, injectabl e, quadrivalent, preservative free Vandana Florentino-Maria Esther [employer] Work Phone: [facility] 11-07-2014 tetanus and diphther ia toxoids, adsorbed, preservative free, for adult use (2 Lf of tetanus toxoid and 2 Lf of diphtheria toxoid) Vandana Florentino-Maria Esther [employer] Work Phone: [facility] 01-08-2013 zoster vaccine, live Vandanachemo Florentino-Maria Esther [employer] Work Phone: [facility] Healthcare Payers Date Payer Category Payer Self-pay [id number] 2022 Medicaid [employer] MEDICARE A DVANTAGE [id number] 2021 Medicare AETNA MEDICARE A ETNA MEDICARE PPO [id number] 2021-Present [phone] [address] [place] [address] PPO [id number] 2021 Private Health Insurance 101 [id number] 2019 Medicare AETNA MEDICARE A ETNA MEDICARE PPO [id number] 2019-Present [phone] [address] [place] [address] PPO [id number] 2019 Medicare [id number] 1950 Unknown [id number] 2.16.840.1.146295.3.579.2. 693 1950 Unknown [id number] 2.16.840.1.608448.3.579.2. 693 1950 Unknown [id number] 2.16.840.1.533507.3.579.2. 693 1950 Unknown [id number] 2.16.840.1.135094.3.579.2. 693 1950 Unknown [id number] 2.16.840.1.094476.3.579.2. 693 1950 Unknown [id number] 2.16.840.1.162383.3.579.2. 9 1950 Unknown [id number] 2.16.840.1.908658.3.579.2. 1259 1950 Unknown [id number] 2.16.840.1.016795.3.579.2. 1258 1950 Unknown [id number] 2.16.840.1.822439.3.579.2. 9 1950 Unknown [id number] 2.16.840.1.671754.3.579.2. 1259 1950 Unknown [id number] 2.16.840.1.887059.3.579.2. 9 1950 Unknown [id number] 2.16.840.1.046525.3.579.2. 9 1950 Unknown [id number] 2.16.840.1.822997.3.579.2. 9 1950 Unknown [id number] 2.16.840.1.714105.3.579.2. 9 1950 Unknown [id number] 2.16.840.1.831174.3.579.2. 1259 Medicare Medicare [id number] Unknown [id number] 2.16.840.1.013943.3.579.2. 531 Unknown [id number] 2.16.840.1.624795.3.579.2. 531 Unknown [id number] 2.16.840.1.895346.3.579.2. 531 Unknown [id number] 2.16.840.1.805139.3.579.2. 531 Social History Date Type Detail Facility Start: 05-01-2012 End: 11-29-2022 Tobacco smoking status NHIS Never smoked tobacco [facility] Start: 11-24-2020 End: 04-12-2023 Alcohol intake Current drinker of alcohol (finding) [facility] Start: 11-26-2019 End: 12-05-2019 History SDOH Alcohol Frequency 5 [facility] Start: 11-26-2019 End: 12-05-2019 History SDOH Alcohol Std Drinks 1 [facility] Start: 11-26-2019 History SDOH Alcohol Comment A GLASS OF WINE ALMOST EVERY NIGHT BEFORE BED [facility] Start: 12-05-2019 History SDOH Transport Med 2 [facility] Start: 1950 Sex Assigned At Not on file [facility] Start: 09-12-2021 End: 09-22-2021 Exposure to SARS-CoV-2 (event) Unable to assess [facility] Start: 11-20-2019 End: 04-16-2022 Exposure to SARS-CoV-2 (event) Not sure [facility] Start: 05-01-2012 End: 11-29-2022 Tobacco use and exposure Smokeless tobacco non-user [facility] Start: 11-26-2019 End: 04-24-2024 History of Social function [facility] Work Phone: Start: 11-26-2019 End: 04-24-2024 Alcohol Use Disorder Identification Test - Consumption [AUDIT-C] [facility] Work Phone: How often to you hav e a drink containing alcohol? 4 or more times a week [facility] Work Phone: How many standard dr inks containing alcohol do you have on a typical day? 1 or 2 [facility] Work Phone: How often do you hav e 6 or more drinks on 1 occasion? Never [facility] Work Phone: How hard is it for y ou to pay for the very basics like food, housing, medical care, and heating Not hard at all [facility] (I/We) worried kev er (my/our) food would run out before (I/we) got money to buy more. Never true [facility] Start: 06-30-2023 End: 10-01-2024 Alcohol intake Ex-drinker (finding) [facility] Start: 01-15-2023 Alcohol Comment caffeine: 1-2 cups per day of coffee [facility] Start: 1950 Sex Assigned At Female [facility] Start: 12-07-2022 Gender identity Identifies as female gender (finding) [facility] Start: 09-06-2024 Sex Female (finding) [facility] Medical Equipment Procedure Code Equipment Code Equipment Origin al Text Equipment Identifier Dates Cement Simplex P Bone Radiopaque Full Dose Sterile - [id number] Start: 12-05-2019 [place] Cv 6x6in Thk1.65mm Ptfe - [id number] Start: 09-12-2012 Insert Persona 6 -9 C-D Polyethylene 10mm Articular Posterior Stabilized - [id number] Start: 12-05-2019 Component 29mm A ll Poly Patellar Psn - [id number] Start: 12-05-2019 Component Person a 6 Narrow Cocr Femoral Cemented Posterior Stabilize Knee - [id number] Start: 12-05-2019 Baseplate Person a 5d D Tivanium Tibial Cemented Stem Knee Left - [id number] Start: 12-05-2019 Clinical Notes 12-20-2019 to 01-07-2025 Carrie Blanco NP - 01/07/2025 2:00 PM EDT Note Date & Type Note Facility 01-07-2025 History of Presen t illness Narrative Images from the original note were not included. Subjective Patient ID: Gilda Sorto (: 1950) is a 74 y.o. female who presents for Knee Pain. HPI History of Present Illness The patient presents for evaluation of knee pain. She experienced a fall on 02/21/2024, which resulted in a visit to the ER and subsequent x-rays. Although no fractures were identified, she was referred for additional x-rays and a CT scan by Summer. The diagnosis was a severe hematoma. She was prescribed pain medication, of which she took the last half dose the previous night. Despite her high [...] issue. She attempted to contact Dr. Marcos last Tuesday, but he has not yet reviewed her x-rays. A physical therapist suggested an MRI during her trip. She has tried both ice and heat for relief, with heat providing some comfort. [id number] medications like Tylenol and Aleve have been [...] urticaria Insomnia Mild major depression Morbid obesity ([facility]) Peripheral venous insufficiency Renal artery aneurysm Seasonal allergic rhinitis Stage 3a chronic kidney disease ([facility]) Vitamin D deficiency Primary hyperparathyroidism ([facility]) Varicose veins of leg with edema [...] has been very tolerable until a recent vacation. She did a lot of walking and a lot of sitting and standing on the bus. Today she states the pain is severe, rated at 9 out of 10, and persistent despite the use of [id number] medications like Tylenol and Aleve. - A referral to an paralegal specialist, either Dr. Sorto, Dr. Pablo, or Dr. Manzano, has been made for further evaluation and [...] Carrie Blanco NP documented in this encounter [facility] 12-06-2024 Evaluation note Diagnosis Onset Date Resolution Abnormal weight gain acute December 06, 2024 1:02pm Anxiety acute December 06 1:02pm Arthritis acute December 06 1:02pm BMI 36.0-36.9,adult acute December 06, 2024 1:02pm Breast cancer acute December 06, 2024 1:02pm Dietary surveillance and counseling acute December 06, 2024 1:02pm Diverticulitis acute December 06, 2024 1:02pm Exercise counseling acute December 06, 2024 1:02pm GERD (gastroesophageal reflux disease) acute December 06, 2024 1:02pm H/O: hysterectomy acute December 062024 1:02pm Hx of cholecystectomy acute Nov 1:02pm Hypertension acute December 06, 025 1:02pm Obesity, Class II, BMI 35-39.9 acute December 06, 2024 1:02pm [facility] Work Phone: 1(661) 764-196307-24-2025 Evaluation note* Diagnosis Onset Date Resolution Status Admit Date Abnormal weight gain acute December 06, 2024 1:02pm Anxiety acute December 06 1:02pm Arthritis acute December 06 1:02pm BMI 36.0-36.9,adult acute December 06, 2024 1:02pm Breast cancer acute December 06, 2024 1:02pm Dietary surveillance and counseling acute December 06, 2024 1:02pm Diverticulitis acute December 06, 2024 1:02pm Exercise counseling acute December 06, 2024 1:02pm GERD (gastroesophageal reflu x disease) acute December 06, 2024 1:02pm H/O: hysterectomy acute December 062024 1:02pm Hx of cholecystectomy acute Nov 1:02pm Hypertension acute December 06, 2 025 1:02pm Obesity, Class II, BMI 35-39.9 acute December 06, 2024 1:02pm [facility] Work Phone: 1(516) 227-244806-12-2025 Telephone encounter Note* Telephone Encounter - Shira Ragland LPN - 10/25/2024 12:44 PM EDT Pt requesting a refill on Zolpidem and Lorazepam [id number] Miscellaneous Notes* Telephone Encounter - Shira Ragland LPN - 10/25/2024 12:44 PM EDT Pt requesting a refill on Zolpidem and [facility]azepam [facility] documented in this encounterBarn[facility] [id number] History of Present illness Narrative* Zana Fuchs NP - 10/01/2024 2:20 PM EDT Images from the original note were not included. [address] , [address] [facility], [address] P: [phone] F: [phone] HPI Historian of HPI: patient Gilda Sorto is a 74 y.o. female who presents today to the Urgent Care with the following complaints and denials which have been present for 5 day(s). C/O Denies Symptom Comments [x] [] Runny Nose [] [x] Difficulty Swallowing [] [x] Sore Throat [x] [] Cough [] [x] Ear Pain [] [x] Fever [x] [] Chills [x] [] Nasal Congestion [] [x] Myalgia [x] [] Sinus Pain [x] [] Sinus Pressure Additional Comments: pt has taken mucinex OTC medication without relief Pt would like to see provider before any testing. ROS A complete system ROS was performed and negative aside from the pertinent positives noted in the HPI and PE. Visit Vitals BP 138/82 Pulse 96 Temp 97 F Resp 20 Wt 198 lb 3.1 oz SpO2 98% BMI 35.11 kg/m Smoking Status Never BSA 2 m PHYSICAL EXAM Physical Exam Vitals reviewed. Constitutional: General: She is not in acute distress. Appearance: Normal appearance. HENT: Head: Normocephalic and atraumatic. Right Ear: Hearing, tympanic membrane, ear canal and external ear normal. Left Ear: Hearing, tympanic membrane, ear canal and external ear normal. Nose: Congestion present. Mouth/Throat: Lips: [place]. Mouth: Mucous membranes are moist. Pharynx: Oropharynx is clear. Uvula midline. Postnasal drip present. Eyes: Extraocular Movements: Extraocular movements intact. Conjunctiva/sclera: Conjunctivae normal. Pupils: Pupils are equal, round, and reactive to light. Cardiovascular: Rate and Rhythm: Normal rate and regular rhythm. Pulses: Normal pulses. Heart sounds: Normal heart sounds. Pulmonary: Effort: Pulmonary effort is normal. No respiratory distress. Breath sounds: Decreased air movement present. Decreased breath sounds present. No wheezing, rhonchi or rales. Musculoskeletal: General: Normal range of motion. Cervical back: Normal range of motion and neck supple. Skin: General: Skin is warm and dry. Findings: No rash. Neurological: General: No focal deficit present. Mental Status: She is alert and oriented to person, place, and time. Psychiatric: Mood and Affect: Mood normal. TREATMENT PLAN 1. Acute cough (Primary) Presents today for evaluation of cough and chest congestion. She declined testing today. She has a deep non productive cough with diminished LS on exam. She is in no acute distress. New medication asdirected. Acetaminophen or Ibuprofen for reduction of fever and pain. Increase fluids. Good handwashing. Discussed warning signs of worsening infection and when to report to ER. New toothbrush in 24 hours. Call PCP office if symptoms have not started to improve within the next 72 hours. Patient verbalized understanding of instructions. - azithromycin (Zithromax) 250 MG tablet; Take 1 tablet (250 mg) by mouth Daily Take 2 tabs on day 1 and 1 tab on days 2-5 then stop Dispense: 6 tablet; Refill: 0 2. Bronchitis -Take medication as prescribed below to completion -cough and deep breathe -May use Tylenol/Ibuprofen for pain/fever -May use OTC medication such as cough syrups especially at night time for relief, pseudoephedrine for nasal congestion, and/or Stephanie Pot or saline rinses. -Follow up with in 1 week if no improvement or go to the ED for worsening of symptoms such as SOB or CP. - azithromycin (Zithromax) 250 MG tablet; Take 1 tablet (250 mg) by mouth Daily Take 2 tabs on day 1 and 1 tab on days 2-5 then stop Dispense: 6 tablet; Refill: 0 documented in this encounterBarnes-Jewish [id number] History of Present illness Narrative* Gi BlandonBUDDY - 09/20/2024 9:15 AM EDT Images from the original note were not included. Gilda Sorto is a 74 y.o. female presents with chief complaint of Arthritis (Complaints of generalized arthritis pain, hurting all over She is taking Advil 2 po at bedtime and using heat. ) HPI: History of Present Illness The patient presents for evaluation of joint pain. She reports a general feeling of discomfort, with a specific incident during a winter trip to the [facility] where she was unable to keep pace with her companions due to lack of stamina and pain. She has a history of left knee replacement and a fall on her right knee, which continues to cause discomfort. Additionally, she reports the onset of foot pain and hand issues. She has had shoulder replacement on one side, while the other shoulder, although not requiring replacement, causes pain. Despite these issues, she is able to perform necessary tasks. Symptoms are intermittent, with periods of no discomfort followed by episodes of severe pain. She uses a heated lap blanket at night to aid sleep and takes 2 Advil tablets nightly, occasionallytaking an additional 2 tablets during the day if needed. Tylenol has been tried without success. She has previously taken hydrocodone, which was tolerated well. There are 24 oxycodone tablets remaining from a prescription of 30, which were taken on her trip and used on a few occasions when pain wassevere. Medrol Dosepak has not been tried, and there is concern about potential dependence on opioids. Voltaren gel and Aleve rub-on gel have been used and found helpful. Biofreeze is used on both knees. Annual injections are received from a hand specialist in [place], [facility]. She acknowledges being overweight and believes this exacerbates her condition. Despite efforts to lose weight through diet and exercise, she has been unsuccessful. Blood work was done in 04/2024, which included PTH but not thyroid function tests. 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 Surgery was performed for this condition. She had 2 of her parathyroid glands removed. PAST SURGICAL HISTORY: - Left knee replacement - Shoulder replacement - Surgery for aneurysm on renal artery - Removal of 2 parathyroid glands FAMILY HISTORY Her mother lived to be 96 and had arthritis. I have reviewed and reconciled the history [...] 12/02/2017 Added automatically from request for surgery [id number] Tear of lateral meniscus of knee 01/06/2018 Added automatically from request for surgery [id number] Tonsillitis SURGICAL HISTORY: Past Surgical History: Procedure Laterality Date ADENOIDECTOMY APPENDECTOMY BREAST SURGERY 2007 Breast CA SECTION, LOW TRANSVERSE 1977 COLONOSCOPY 2008 (normal, small hemorrhoids) COLONOSCOPY 11/05/2020 CT ANGIOGRAM ABDOMEN PELVIS 11/22/2019 CT ANGIOGRAM ABDOMEN PELVIS 11/22/2019 CT ANGIOGRAM ABDOMEN PELVIS 11/25/2021 CT ANGIOGRAM ABDOMEN PELVIS 11/25/2021 FRACTURE SURGERY JOINT REPLACEMENT 1921 OTHER SURGICAL HISTORY 2010 S/P correction with deep K Wire (Lt 2nd hammertoe) OTHER SURGICAL HISTORY S/P R Renal artery aneursym repair PARATHYROIDECTOMY 2000 [place] 2010 Partial Nail Avulsion SHOULDER SURGERY 01/2022 SQUAMOUS CELL CARCINOMA EXCISION [address] Peña TONSILLECTOMY TOTAL ABDOMINAL HYSTERECTOMY W/ BILATERAL SALPINGOOPHORECTOMY TOTAL KNEE ARTHROPLASTY Left 11/2019 Dr. Dean - [facility] SOCIAL HISTORY: Social History Tobacco Use Smoking status: Never Smokeless tobacco: Never Vaping Use Vaping status: Never Used Substance Use Topics Alcohol use: Not Currently Alcohol/week: 1.0 standard drink of alcohol Types: 1 Glasses of wine per week Comment: caffeine: 1-2 cups per day of coffee Drug use: Never Depression: Not at risk (04/24/2024) PHQ-2 PHQ-2 Score: 0 FAMILY HISTORY: Family [...] BY MOUTH IN THE MORNING BEFORE MEALS. Probiotic Product (ALIGN EXTRA STRENGTH PO) 1 tablet, Daily triamterene-hydroCHLOROthiazide (Dyazide) 37.5-25 MG capsule 1 capsule, Oral, Every morning zolpidem (AMBIEN) 5 mg, Oral, Nightly PRN ALLERGIES: Allergies Allergen Reactions Claus Inhibitors Angioedema Doxycycline Rash Nitrofurantoin GI intolerance Percocet [Oxycodone-Acetaminophen] Hallucinations Sulfa Antibiotics Unknown Other Reaction(s): Difficulty Breathing PHYSICAL EXAM: Visit Vitals BP 128/80 (BP Location: Left arm, Patient Position: Sitting) Pulse 85 Ht 5' 3 Wt 195 lb SpO2 98% BMI 34.54 kg/m Smoking Status Never BSA 1.98 m BP Readings from Last 3 Encounters: 09/20/24 128/80 05/07/24 122/80 05/01/24 124/64 Wt Readings from Last 3 Encounters: 09/20/24 195 lb 05/07/24 193 lb 05/01/24 193 lb Physical Exam General Examination: alert, oriented, normal affect, well-appearing, in no acute distress, well developed, well nourished. Head: normocephalic, atraumatic Heart: regular rate and rhythm, S1, S2 normal Lungs: clear to auscultation bilaterally. No wheezes, rales, rhonchi. 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 Results Labs - GFR: 42 ASSESSMENT AND PLAN: Assessment & Plan 1. Joint pain. - Her symptoms are likely attributed to age-related osteoarthritis, less likely potentially an inflammatory or autoimmune etiology. The pain in her hands appears more consistent with osteoarthritis than rheumatoid arthritis. - Given her chronic kidney disease, the use of NSAIDs is not recommended. A comprehensive set of laboratory tests will be conducted to exclude the possibility of inflammatory arthritis or an autoimmune cause for her pain. - A Medrol Dosepak will be prescribed to manage her inflammation. She is advised to complete the entire course of this medication. She will get blood work today prior to starting medrol. - Additionally, she is recommended to take 2 extra strength Tylenol at bedtime and again in the morning or around noon if necessary. If her symptoms persist, the use of chronic opioids may be considered. She has taken norco in the past with good results, she has some of them at home to use as needed. I advised her on the risks and benefits of chronic opioid use and if this pain impedes her life and causes a decrease her in quality of life we will consider her taking this chronically. 2. Chronic kidney disease. - Her kidney function is not optimal, with the last GFR recorded at 42. - The use of NSAIDs like Advil is not recommended due to the potential for further kidney damage. - She is advised to use Tylenol as it is safer for her kidneys. Take 2 extra strength Tylenol at bedtime and again 1-2 times during day as needed, not to exceed 3,000 mg daily. - Prescription Drug Monitoring Program was reviewed. 3. Weight management. - She reports difficulty losing weight despite limiting her food intake and exercising. - A TSH test will be conducted to evaluate thyroid function as a potential contributing factor to her weight issues. - Counseling on weight management and potential thyroid issues was provided. 4. Peripheral Vascular Insufficiency Likely contributing to her pain, although likely contributing, she has no intermittent claudication. 5. Essential hypertension Stable, continue current regimen. documented in this encounterBarnes-Jewish [id number] History of Present illness Narrative* Myriam Bermudez NP - 05/11/2024 8:15 AM EST Images from the original note were not included. Gilda Sorto is a 73 y.o. female presents with chief complaint of Cerumen Impaction HPI: History of Present Illness I have reviewed and reconciled the history [...] 12/02/2017 Added automatically from request for surgery [id number] Tear of lateral meniscus of knee 01/06/2018 Added automatically from request for surgery [id number] Tonsillitis SURGICAL HISTORY: Past Surgical History: Procedure Laterality Date ADENOIDECTOMY APPENDECTOMY BREAST SURGERY 2007 Breast CA SECTION, LOW TRANSVERSE 1977 COLONOSCOPY 2008 (normal, small hemorrhoids) COLONOSCOPY 11/05/2020 CT ANGIOGRAM ABDOMEN PELVIS 11/22/2019 CT ANGIOGRAM ABDOMEN PELVIS 11/22/2019 CT ANGIOGRAM ABDOMEN PELVIS 11/25/2021 CT ANGIOGRAM ABDOMEN PELVIS 11/25/2021 FRACTURE SURGERY JOINT REPLACEMENT 1921 OTHER SURGICAL HISTORY 2010 S/P correction with deep K Wire (Lt 2nd hammertoe) OTHER SURGICAL HISTORY S/P R Renal artery aneursym repair PARATHYROIDECTOMY 2000 [place] 2010 Partial Nail Avulsion SHOULDER SURGERY 01/2022 SQUAMOUS CELL CARCINOMA EXCISION [address] Peña TONSILLECTOMY TOTAL ABDOMINAL HYSTERECTOMY W/ BILATERAL SALPINGOOPHORECTOMY TOTAL KNEE ARTHROPLASTY Left 11/2019 Dr. Dean - [facility] SOCIAL HISTORY: Social History Tobacco Use Smoking status: Never Smokeless tobacco: Never Vaping Use Vaping status: Never Used Substance Use Topics Alcohol use: Not Currently Alcohol/week: 1.0 standard drink of alcohol Types: 1 Glasses of wine per week Comment: caffeine: 1-2 cups per day of coffee Drug use: Never Depression: Not at risk (04/24/2024) PHQ-2 PHQ-2 Score: 0 FAMILY HISTORY: Family [...] BY MOUTH IN THE MORNING BEFORE MEALS. Probiotic Product (ALIGN PO) 1 capsule, Daily triamterene-hydroCHLOROthiazide (Dyazide) 37.5-25 MG capsule 1 capsule, Oral, Every morning zolpidem (AMBIEN) 5 mg, Oral, Nightly PRN ALLERGIES: Allergies Allergen Reactions Claus Inhibitors Angioedema Doxycycline Rash Nitrofurantoin GI intolerance Percocet [Oxycodone-Acetaminophen] Hallucinations Sulfa Antibiotics Unknown Other Reaction(s): Difficulty Breathing PHYSICAL EXAM: Visit Vitals Smoking Status Never BP Readings from Last 3 Encounters: 05/07/24 122/80 05/01/24 124/64 03/15/24 126/78 Wt Readings from Last 3 Encounters: 05/07/24 193 lb 05/01/24 193 lb 03/15/24 202 lb Physical Exam HENT: Right Ear: Tympanic membrane and external ear normal. Ears: Comments: Clear after flushing Neurological: Mental Status: She is alert. Physical Exam Results ASSESSMENT AND PLAN: Assessment & Plan 1. Impacted cerumen of right ear (Primary) Ear cleaning done with water flush. Moderate amount removed. Pt tolerated well. documented in this encounterBarnes-Jewish [id number] History of Present illness Narrative* Myriam Bermudez NP - 05/07/2024 9:45 AM EST Images from the original note were not included. Gilda Sorto is a 73 y.o. female presents with chief complaint of Cerumen Impaction (Pt is being seen for right ear cleaning) HPI: History of Present Illness I have reviewed and reconciled the history [...] 12/02/2017 Added automatically from request for surgery [id number] Tear of lateral meniscus of knee 01/06/2018 Added automatically from request for surgery [id number] Tonsillitis SURGICAL HISTORY: Past Surgical History: Procedure [...] R Renal artery aneursym repair PARATHYROIDECTOMY 2000 [place] 2010 Partial Nail Avulsion SHOULDER SURGERY 01/2022 SQUAMOUS CELL CARCINOMA EXCISION [address] Peña TONSILLECTOMY TOTAL ABDOMINAL HYSTERECTOMY W/ BILATERAL SALPINGOOPHORECTOMY TOTAL KNEE ARTHROPLASTY Left 11/2019 Dr. Dean - [facility] SOCIAL HISTORY: Social History Tobacco Use Smoking status: Never Smokeless tobacco: Never Vaping Use Vaping status: Never Used Substance Use Topics Alcohol use: Not Currently Alcohol/week: 1.0 standard drink of alcohol Types: 1 Glasses of wine per week Comment: caffeine: 1-2 cups per day of coffee Drug use: Never Depression: Not at risk (04/24/2024) PHQ-2 PHQ-2 Score: 0 FAMILY HISTORY: Family [...] BY MOUTH IN THE MORNING BEFORE MEALS. Probiotic Product (ALIGN PO) 1 capsule, Daily triamterene-hydroCHLOROthiazide (Dyazide) 37.5-25 MG capsule 1 capsule, Oral, Every morning zolpidem (AMBIEN) 5 mg, Oral, Nightly PRN ALLERGIES: Allergies Allergen Reactions Claus Inhibitors Angioedema Doxycycline Rash Nitrofurantoin GI intolerance Percocet [Oxycodone-Acetaminophen] Hallucinations Sulfa Antibiotics Unknown Other Reaction(s): Difficulty Breathing PHYSICAL EXAM: Visit Vitals BP 122/80 Pulse 82 Ht 5' 3 Wt 193 lb SpO2 98% BMI 34.19 kg/m Smoking Status Never BSA 1.97 m BP Readings from Last 3 Encounters: 05/07/24 122/80 05/01/24 124/64 03/15/24 126/78 Wt Readings from Last 3 Encounters: 05/07/24 193 lb 05/01/24 193 lb 03/15/24 202 lb Physical Exam HENT: Right Ear: There is impacted cerumen. Neurological: Mental Status: She is alert. Results ASSESSMENT AND PLAN: Assessment & Plan 1. Right ear impacted cerumen (Primary) Ear cleaning attempted with tool but wax too far back. Ear canal irritated at 6:00 position with small amount of bleeding. Encouraged to leave it alone today and tomorrow and start using debrox dropsT evening daily. She will return Tuesday for ear cleaning. documented in this encounterBarnes-Jewish [id number] History of Present illness Narrative* BUDDY Benavides - 05/01/2024 3:00 PM EST Images from the original note were not included. Gilda Sorto is a 73 y.o. female presents with chief complaint of Annual Exam (Review lab drawn 04/23/2024) and Medicare Annual Wellness Visit Subsequent HPI: HPI History of Present Illness The patient presents for evaluation for her annual physical. She reports a daily intake of her medication, with one refill remaining, which typically sustains her for several months. She is seeking advice on how to obtain additional refills during her upcoming3.5-month stay in [place]. She is requesting a longer rx of her ativan so she has enough in [place]. Yualso mentions that she occasionally takes the medication at bedtime due to sleep disturbances. She has no refills on her Zolpidem and is requesting refill. She continues to experience issues with diarrhea, which she has had for several years. which she believes may be mood-related. Her also thinks it is mood-related. She experiences periods of 3to 4 days without symptoms, followed by episodes of diarrhea triggered by stress or certain foods. It takes her 3 days to get back to normal. She has been managing this condition for several years with a daily regimen of two Metamucil chewables and a probiotic. She reports no associated pain or cramping but does experience excessive gas. Her bowel movements are initially normal, but after an hour, they become loose and watery. This pattern varies depending on her mood. She did not take Imodium t ivan and anticipates not having a bowel movement tomorrow. She uses Imodium as needed, typically once or twice a week, and occasionally takes two doses if symptoms are severe. She has never experienced constipation. She has a known history of diverticulitis. She reports no chest pain, shortness of breath, or blood in stool. She missed her mammogram appointment in April 2023. She had a DEXA scan in 2020. Respiratory: no cough, wheeze, or shortness of breath. Cardiac: no chest pain, no edema, no palpitations, dizziness or fainting Gastrointestinal: denies rectal bleeding, abd pain or cramping Neurologic: denies memory loss, tingling/numbness, tremor Pt. can get up from the chair without using the arms of the chair in < 30 seconds. Denies issueswith depression. Denies more than 2 falls in the past year. IMMUNIZATIONS She is up to date on pneumonia and shingles vaccines. I have reviewed and reconciled the history and medication list with the patient today. CURRENT PCP/CARE TEAM: Patient Care Team: Gonsalo Hubbard MD as PCP - General (Internal Medicine) Gonsalo Hubbard MD as PCP - Melia Ramirez (Vascular Surgery) Eliud Weiss DPM as Referring Physician (Podiatry) Ifeanyi Leavitt MD as Consulting Physician (Dermatology) Sandro Trejo MD as Consulting Physician (Ophthalmology) Jb Li MD as Referring Physician (Diagnostic Radiology) Over the past 2 weeks, how often have you been bothered by any of the following problems? Little interest or pleasure in doing things: Not at all Feeling down, depressed, or hopeless: Not at all Patient Health Questionnaire-2 Score: 0 Parish Fall Risk History of Falling, Immediate or Within 3 Months: Yes Health Risk Assessment Form Do you need help eating, bathing, using the toilet, dressing, or getting around your home?: No Can you prepare your own meals?: Yes Can you do your own housework without help?: Yes Can you shop for groceries or clothes without help?: Yes Do you exercise for about 20 minutes 3 or more days a week?: Yes How confident are you that you can control and manage most of your health problems?: Very confident Can you mange your money, credit cards and accounts, pay bills and taxes?: Yes Vision Screening: Yes, patient sees regular computer recycling worker/jtac Cognitive Screening Self Assessment: No overt cognitive deficiency is apparent by direct observation Three Word Registration: Banana, [place], Chair Clock Drawing: Normal Clock - 2 Three Word Recall: All 3 words correct - 3 Total Score (0-5 Points): 5 Pain Assessment Pain Score: 0 - No pain HISTORIES: PAST MEDICAL HISTORY: Past Medical History: Diagnosis Date Anxiety Appendicitis Arthritis Breast cancer (CMS/HCC) Cataract Chicken pox Essential hypertension, benign. Hyperplasia of renal artery Family history of cancer Hallux malleus Hyperplasia of renal artery (CMS/HCC) Hypertension (CMS/HCC) Measles Primary hyperparathyroidism (CMS/HCC) S/P partial mastectomy, right 12/02/2017 Added automatically from request for surgery [id number] Tear of lateral meniscus of knee 01/06/2018 Added automatically from request for surgery [id number] Tonsillitis SURGICAL HISTORY: Past Surgical History: Procedure [...] R Renal artery aneursym repair PARATHYROIDECTOMY 2000 [place] 2010 Partial Nail Avulsion SHOULDER SURGERY 01/2022 SQUAMOUS CELL CARCINOMA EXCISION [address] Peña TONSILLECTOMY TOTAL ABDOMINAL HYSTERECTOMY W/ BILATERAL SALPINGOOPHORECTOMY TOTAL KNEE ARTHROPLASTY Left 11/2019 Dr. Dean - [facility] SOCIAL HISTORY: Social History Tobacco Use Smoking status: Never Smokeless tobacco: Never Vaping Use Vaping status: Never Used Substance Use Topics Alcohol use: Not Currently Alcohol/week: 1.0 standard drink of alcohol Types: 1 Glasses of wine per week Comment: caffeine: 1-2 cups per day of coffee Drug use: Never Depression: Not at risk (04/24/2024) PHQ-2 PHQ-2 Score: 0 FAMILY HISTORY: Family [...] BY MOUTH IN THE MORNING BEFORE MEALS. Probiotic Product (ALIGN PO) 1 capsule, Daily triamterene-hydroCHLOROthiazide (Dyazide) 37.5-25 MG capsule 1 capsule, Oral, Every morning zolpidem (AMBIEN) 5 mg, Oral, Nightly PRN ALLERGIES: Allergies Allergen Reactions Claus Inhibitors Angioedema Doxycycline Rash Nitrofurantoin GI intolerance Percocet [Oxycodone-Acetaminophen] Hallucinations Sulfa Antibiotics Unknown Other Reaction(s): Difficulty Breathing PHYSICAL EXAM: Visit Vitals BP 124/64 (BP Location: Left arm, Patient Position: Sitting) Pulse 71 Ht 5' 3 Wt 193 lb SpO2 98% BMI 34.19 kg/m Smoking Status Never BSA 1.97 m BP Readings from Last 3 Encounters: 05/01/24 124/64 03/15/24 126/78 02/28/24 118/80 Wt Readings from Last 3 Encounters: 05/01/24 193 lb 03/15/24 202 lb 12/28/23 193 lb Physical Exam General Examination: alert, oriented, normal affect, well-appearing, in no acute distress, well developed, well nourished. Head: normocephalic, atraumatic Eyes: sclera non-icteric Ears: auditory canal clear, tympanic membrane intact, clear Oral Cavity: no lesions, mucosa moist Throat: clear, symmetrical rise of soft palate and uvula, no erythema or exudate Heart: regular rate and rhythm, S1, S2 normal, no carotid bruits Lungs: clear to auscultation bilaterally. No wheezes, rales, rhonchi. Extremities: no edema, no cyanosis Psych: alert, oriented, cognitive function intact, cooperative with exam. Results Laboratory Studies Kidney function is stable. Electrolytes looked good. Imaging CT scan showed a hematoma. ASSESSMENT AND PLAN: Assessment & Plan 1. Essential hypertension (CMS/HCC) (Primary) Patient reports at home blood pressures have been at goal. Continue lifestyle modifications. Continue current regimen and call if at home BP is rising above goal BP of less than 140/90. - Urinalysis with microscopic; Future - Microalbumin / creatinine urine ratio; Future - Comprehensive metabolic panel; Future - CBC and differential; Future - Urinalysis with microscopic - Microalbumin / creatinine urine ratio - Comprehensive metabolic panel - CBC and differential 2. Stage 3a chronic kidney disease (HCC) (CMS/HCC) Stable. Discussed and reviewed most recent labs, we will continue the current medication regimen and review and modify all risk factors as we are able to do so to prevent the progression of chronic kidney disease. Follow-up labs again at next office visit. - PTH, intact; Future - Phosphorus; Future - PTH, intact - Phosphorus 3. Primary hyperparathyroidism (CMS/HCC) Stable, continue to monitor. 4. Mild major depression (HCC) (CMS/[facility]) Reports mood is stable, will continue current regimen. Advised to call with any changes. 5. SIOBHAN (generalized anxiety disorder) (CMS/HCC) See above. - LORazepam (Ativan) 0.5 MG tablet; Take 1 tablet (0.5 mg) by mouth every 8 (eight) hours if neededfor anxiety Dispense: 90 tablet; Refill: 0 6. Primary insomnia Doing well on current regimen. OARRS reviewed and no concerns. Continue current regimen and discussed our goal is to use the lowest dose possible for the shortest amount of time. - zolpidem (Ambien) 5 MG tablet; Take 1 tablet (5 mg) by mouth as needed at bedtime for sleep Dispense: 90 tablet; Refill: 1 7. Gastroesophageal reflux disease without esophagitis Denies any red flag symptoms. Continue current diet modification including working on a healthy BMI, avoiding caffeine, acidic foods, spicy foods, chocolate and avoiding large meals prior to laying supine. 8. Medicare annual wellness visit, subsequent Seen by Gi Blandon PA-C. Patient here for annual Medicare Wellness visit. Demographics were updated. Self-assessment was completed. Past medical, family, and social history were updated. The medication list, including supplements being taken, was updated. A list of other current medical providers was established/updated. Time was spent discussing health maintenance issues, ordering proper testing, and a schedule was provided regarding recommended screening. We discussed safety issues and fall risk. Depression screening was completed and addressed. Fall screening was completed and addressed. Cognitive function was assessed by direct observation and assessment of ability to perform ADL'sand IADL's was done. The current BMI was provide and will continue to be monitored at routine office visits as well. Major risk factors for chronic disease including family history were discussed kojo list was provided with the care plan. 9. ACP (advance care planning) Patient has living will, healthcare POA, wishes to be full code. 10. Vitamin D deficiency Labs with next visit. - Vitamin D 25 hydroxy Total; Future - Vitamin D 25 hydroxy Total 11. Screening for lipid disorders Ordered lipid screen. - Lipid panel; Future - Lipid panel 12. Postmenopausal syndrome Ordered. - DEXA bone density 13. Screening mammogram for breast cancer Ordered. - Bilateral screening mammogram with tomosynthesis 14. Diarrhea. Her diarrhea is likely related to her anxiety. She is currently taking Metamucil chewies and a probiotic daily. She uses Imodium as needed, typically once or twice a week. She was advised to continueusing Imodium as needed but to avoid overuse to prevent constipation. If symptoms worsen, Bentyl may be considered. She is UTD on colonoscopy. Denies unintentional weight loss, abd pain, blood in stool. 15. Cerumen impaction, right She has a significant amount of cerumen in her right ear, which may be impacting her auditory function. She was advised to use Debrox drops daily for 4 to 5 days to soften the wax. A follow-up appointment for ear irrigation will be scheduled for Tuesday. Patient is here for follow up of the above chronic problems. I am following Dr. Hubbard's established plan of care for these issues. Dr. Hubbard was not in the office suite today but is available via real-time, audio/visual technology to supervise patient care. documented in this encounterBarnes-Jewish [id number] NoteHNO ID: [id number] Author: DELFIN SEARS PA-C Service: ? Author Type: Physician Aircraft Structural Design Engineer Type: Progress Notes Filed: 03/19/2024 14:52 Note Text: PLASTIC SURGERY DEPARTMENT [facility] Hand Surgery Note [x] New referred [...] Lymph 1.00 - 4.00 k/uL 1.29 Abs Custer <0.87 k/uL 0.41 Abs Eosin <0.46 k/uL [...] [] [x] Objective: PAS (more content not included)...[facility]11-04-2024 History of Present illness Narrative* Delfin Sears PA-C - 03/19/2024 10:43 AM EST Images from the original note were not included. PLASTIC SURGERY DEPARTMENT [facility] Hand Surgery Note [x] New referred [...] Lymph 1.00 - 4.00 k/uL 1.29 Abs Custer <0.87 k/uL 0.41 Abs Eosin <0.46 k/uL [...] and is being monitored yearly - Dr. Macias Main Depression Generalized OA H/O breast lump [...] ABDOMINAL HYSTERECT W/WO RMVL TUBE OVARY 1990 KERVIN-O Current Outpatient Medications Medication Sig Dispense Refill [...] ? STRENGTH Strength in pounds RIGHT LEFT Alcohol Rubber (Christiano) 40 44 Garcai pinch (thumb pad to lateral aspect of [...] SD worse than population and warrants attention ....................................... Assessment:..... bilateral first CMC joint osteoarthritis ...... Plan:....... []Pictures []Conservative []Medications [x]Steroid injection []Splint []Cast []OT []PT []CAST ROOM []EMG/ NCS []neuromuscular US []radiology []xrays []US []CT []MRI []Surgery []consult neurology []consult rheumatology []consult spine center []consult pain management []consult orthopedics Follow-up: [x]with [employer]PERATOR [employer] [] with []after tests completed [x]PRN []1 week []2 weeks []3 weeks []4 weeks []6 weeks []2 months []3 months []6 months []9 months []1 year otherwise []weeks []months The patient was informed about possible options for treatment: Conservative vs. Operative, possiblepros and cons with complications of both were discussed. The patient elects to have []conservative treatment []surgery All anesthestic options discussed with patient: wide awake local anesthesia, peripheral nerve blockwith possible sedation, peripheral nerve block with pain catheter and possible sedation, general anesthesia. Patient voiced understanding and has chosen []local []block ([]single shot []catheter) []WALANT []MAC []general anesthesia No guarantee that symptoms like pain, tingling and numbness will improve after surgery, the patientunderstands this. The risk, benefits and alternatives of [...] Past Histories independently gathered by the clinical technical sales support specialist and the remaining scribed note accurately describes my personal service to the patient. 30 Minutes total visit spent face to face with patient. Greater than 50% of the time was spent for counseling and coordination of care, discussing treatment options and recommendations. Delfin Sears PA-C March 19, 2024 2:51 PM This note was generated with voice recognition software and may contain errors, including spelling,grammar, syntax and misrecognition of what was dictated, that are not fully corrected. documented in this encounterSumma Health [facility] History of Present illness Narrative* BUDDY Benavides 03/15/2024 8:45 AM EDT Images from the original note were [...] & traumatic hematoma of right lower leg. CTwas ordered and is scheduled for next week. We did call CT today during appointment to get that moved up which she is now scheduled to have done tomorrow at 1:45 PM. She reports persistent bruising on her right leg, which has significantly improved but is not entirely gone. Reports occasionally darkens and feels hard and numb to touch to the proximal right tibia.The bruising sometimes appears to be bleeding again. [...] of standing, otherwise is using tylenol. She findsit difficult to get comfortable in bed. She [...] 12/02/2017 Added automatically from request for surgery [id number] Tear of lateral meniscus of knee 01/06/2018 Added automatically from request for surgery [id number] Tonsillitis SURGICAL HISTORY: Past Surgical History: Procedure Laterality Date ADENOIDECTOMY APPENDECTOMY BREAST SURGERY 2007 Breast CA SECTION, LOW TRANSVERSE 1977 COLONOSCOPY 2008 (normal, small hemorrhoids) COLONOSCOPY 11/05/2020 CT ANGIOGRAM ABDOMEN PELVIS 11/22/2019 CT ANGIOGRAM ABDOMEN PELVIS 11/22/2019 CT ANGIOGRAM ABDOMEN PELVIS 11/25/2021 CT ANGIOGRAM ABDOMEN PELVIS 11/25/2021 FRACTURE SURGERY JOINT REPLACEMENT 1921 OTHER SURGICAL HISTORY 2009 S/P correction with deep K Wire (Lt 2nd hammertoe) OTHER SURGICAL HISTORY S/P R Renal artery aneursym repair PARATHYROIDECTOMY 2000 [place] CORRECTION HAMMERTOE 2009 Partial Nail Avulsion SHOULDER SURGERY 01/2022 SQUAMOUS CELL CARCINOMA EXCISION [address] Peña TONSILLECTOMY TOTAL ABDOMINAL HYSTERECTOMY W/ BILATERAL SALPINGOOPHORECTOMY TOTAL KNEE ARTHROPLASTY Left 11/2019 Dr. Dean - [facility] SOCIAL HISTORY: Social History Tobacco Use [...] full flexion. Full arom rt ankle and strength5/5. Ecchymosis resolved to right lower anterior leg [...] improving externally, but mild swelling persists. A CTscan has been scheduled for tomorrow at 1:45 PM to provide a clearer picture of the situation. A referral to an paralegal specialist has been made. She reports no pain in her back or groin, and no recent fevers, chills, or body aches except for symptoms following a recent Covid shot. She is to usetylenol, elevate leg, warm compresses 20 min on/off. Return for immediate re-eval if any new/worse sx. Patient and voiced understanding and agreement with the plan. All questions/concerns addr essed. documented in this encounterBarnes-Jewish [id number] History of Present illness Narrative* BUDDY Benavides - 02/28/2024 3:00 PM EDT Images from the original note were not included. Gilda Sorto is a 73 y.o. female presents with chief complaint of ER Follow-up HPI: HPI History of Present Illness The patient presents for evaluation of a fall. She is accompanied by her . Patient was [place] [facility] [place]24 after falling inside her home. She has complaints of rt leg pain, left wrist pain and facial pain, reports the left wrist pain andfacial pain is entirely gone but she continues with severe right lower leg pain anteriorly over herproximal tib/fib. Pain is worse with weight bearing and certain positional movements. She is takingAdvil prn and trying to keep elevated when she can. She reports her pain is not controlled with theadvil. She has taken percocet in the past after a surgery and did well with it, she did hallucinateonce but she lives with her who will [...] ice to her injuries and wearing compression hose,which initially helped with the swelling but is [...] 12/02/2017 Added automatically from request for surgery [id number] Tear of lateral meniscus of knee 01/06/2018 Added automatically from request for surgery [id number] Tonsillitis SURGICAL HISTORY: Past Surgical History: Procedure [...] R Renal artery aneursym repair PARATHYROIDECTOMY 2000 [place] CORRECTION [place]AM[place] 2010 Partial Nail Avulsion SHOULDER SURGERY 01/2022 SQUAMOUS CELL CARCINOMA EXCISION [address] Peña TONSILLECTOMY TOTAL ABDOMINAL HYSTERECTOMY W/ BILATERAL SALPINGOOPHORECTOMY TOTAL KNEE ARTHROPLASTY Left 11/2019 Dr. Dean - [facility] SOCIAL HISTORY: Social History Tobacco Use [...] Reaction(s): Difficulty Breathing PHYSICAL EXAM: Visit Vitals 5' 3 BMI 34.19 kg/m Smoking Status [...] times a day. A prescription for Percocet willbe sent to [facility] at [employer] for use as needed, OARRS reviewed, she is only to take exactly as prescribed and she understands this is an opioid and only to take as directed. She has taken before, advisedto call for any side effects. She is encouraged to avoid prolonged standing, although complete non-weightbearing is not necessary. If there is no improvement within a week, a CT scan of her lower legwill be considered to rule out an infected hematoma. She is to call if not better in 1 week and will order CT right tib/fib. - oxyCODONE-acetaminophen (Percocet) 5-325 MG tablet; Take 1 tablet by mouth every 6 (six) hours ifneeded for moderate pain or severe pain for up to 7 days Dispense: 28 tablet; Refill: 0 - XR tibia fibula 2 views right 2. Pain in right lower leg See above. - XR tibia fibula 2 views right 3. Traumatic hematoma of right lower leg, initial encounter See above. documented in this encounterBarnes-Jewish [id number] History of Present illness Narrative* Vandana Warren NP - 06/30/2023 9:45 AM EST Gilda Sorto is a 73 y.o. female presents for Cough and Nasal Congestion HPI: HPI Pt presents with a cough and runny nose. Loss of voice. When she takes a deep breathe or coughsher chest hurts. This started a few days [...] 12/02/2017 Added automatically from request for surgery [id number] Tear of lateral meniscus of knee 01/06/2018 Added automatically from request for surgery [id number] Tonsillitis REVIEW OF SYMPTOMS: Review of Systems [...] negative swab in office today. She continues touse flonase. Try to use nettipot to help clean out sinuses. She is contagious. Avoid exposure to vulnerable people. Discussed typical course of URI. Avoid antibiotics until it has been 7-10 days since onset of symptoms. Discussed supportive care including netti pot, coricidin, OTC medications. Callif no improvement. Let us know if hoarseness persists outside acute illness. 2. Cough, unspecified type STATUS COVID-19/FLU 3. Insomnia, unspecified type 4. Morbid obesity (CMS/HCC) 5. History of breast cancer No follow-ups on file. documented in this encounterBarnes-Jewish [id number] NoteHNO ID: [id number] Author: Kayla Mata MD Service: ? Author Type: Physician Type: Progress Notes Filed: 04/12/2023 4:51 PM Note Text: PLASTIC SURGERY DEPARTMENT [facility] Hand Surgery Note [x] New referred [...] [x] What........... Reason:........... Upp (more content not included)...[facility]12-02-2022 History of Present illness Narrative* Sharon Rg APRN.RETOUCHING OPERATOR - 04/16/2022 12:30 PM EST ATTENDING PHYSICIAN: Dr. Merary Chaudhary IDENTIFICATION: Gilda [...] which included preparing to see the patient, [id number] patient care, completing clinical documentation, performing a medically appropriate examination, counseling and educating the patient/family/caregiver, ordering medications, tests, or p rocedures, communicating with other HCPs (not separately reported), independently interpreting results (not separately reported), communicating results to the patient/family/caregiver, and care coordination (not separately reported). Sharon Rg APRN.AMARI documented in this encounterSumma Health Wad[facility]12-02-2022 Nurse Note* Sue Leblanc MA - 04/16/2022 11:51 AM EST Additional intake questions: Has the patient had fever, nausea, vomiting, diarrhea, constipation, fatigue for > 1 week? No Does the patient have a decreased appetite? No Does patient want to see a Field Director? No (yes to any of above refer patient to schedulers for dietitian appointment) ) Does patient have any new or increased numbness or tingling of extremities? No Is patient interested in fertility information? No Does patient need any prescription refills? No Does patient have an advanced directive in place? Yes, copies are in [facility] documented in this encounterSumma Health Wadsworth [facility]12-02-2022 Miscellaneous Notes* Letter - Mammography Coordinator - 04/16/2022 11:38 AM EST April 16, 2022 PID: [id number] Gilda Sorto [address] [place] [address] Dear Ms. Sorto, We are pleased to [...] report will be [facility] on [facility] at [facility] as part of your permanent medical record and are available for your continuing care. Thank you for allowing us to help in meeting your health care needs. Sincerely, Dr. Perez Interpreting Radiologist [facility] (Normal over 40) documented in this encounterSumma Health Wadsworth - [facility]12-02-2022 History of Present illness Narrative* RT Mario(R) - 04/16/2022 11:10 AM EST Radiology Service Progress Note PATIENT NAME: Gilda Sorto DATE OF SERVICE: April 16, 2022 TIME: 11:39 AM PATIENT IDENTITY VERIFICATION COMPLETED USING TWO (2) IDENTIFIERS: Name and Date of confirmedby patient verbally. FALL SCREENING: Has the patient [...] 16, 2022 11:39 AM documented in this encounterSumma Health Wadsworth [facility]07-13-2022 History of Present illness Narrative* GILBERT VillalobosR) - 11/25/2021 12:15 PM EDT Radiology Service Progress Note PATIENT NAME: Gilda Sorto DATE OF SERVICE: November 25, 2021 TIME: 12:30 PM PATIENT IDENTITY VERIFICATION COMPLETED USING TWO (2) IDENTIFIERS: Name and Date of confirmedby patient verbally and Name and Date of [...] and Intact, Site disposition Discontinued SIGNED BY: GILBERT VillalobosR) November 25, 2021 12:30 PM * Carrie Ortiz RN - 11/25/2021 12:15 PM EDT Radiology Service Progress Note DATE OF SERVICE: [...] Left antecubital site with a Angio cath: 20gauge. and A Saline lock was inserted per protocol. IV SITE APPEARANCE: Clean,Dry and Intact SIGNATURE: Carrie Ortiz RN PATIENT NAME: Gilda Sorto DATE: November 25, 2021 TIME: 12:06 PM documented in this encounterSumma Health Wadsworth [facility]05-09-2022 Miscellaneous Notes* Telephone Encounter - Nima Wilkinson - 09/21/2021 2:09 PM EDT Mrs Sorto called and she would like to schedule her yearly follow up appointment with DR. Ramirez [place] and cell number: [phone] Kind Regards, Nima Wilkinson documented in this encounterSumma Health Wadsworth [facility]12-15-2021 NoteHISTORY: Bone density screening. COMPARISON: None available PROCEDURE: Imaging of [...] and signed by Gonsalo Alvarez on 04/29/2021 1247NoJohn [facility]ir [facility] Medical [id number] History of Present illness Narrative* Sandy Wheeler (Rt) - 04/01/2020 12:45 PM EST Radiology Service Progress Note PATIENT NAME: Gilda Sorto DATE OF SERVICE: April 01, 2020 TIME: 1:04 PM PATIENT IDENTITY VERIFICATION COMPLETED USING TWO (2) IDENTIFIERS: Name and Date of confirmedby patient verbally. FALL SCREENING: Has the patient had 2 falls in the last year or 1 fall with injury or currently using an Ambulatory Assistive Device (Walker, Cane, Wheelchair, Crutches, etc.)? No PATIENT GENDER DATA: Female. status: : No status: NO. PATIENT RELEVANT IMPLANT DATA REVIEWED: Not Applicable RADIOLOGY DEPARTMENT: General X-ray: Exam(s) Completed: Lower Extremity X- Ray(s): Knee, AP / Lat / Merchant Left and Wt. Bearing: PERIPHERAL IV DATA: Not applicable SIGNED BY: Roma Reyez RT April 01, 2020 1:04 PM documented in this encounterSumma Health Wadsworth [facility]08-06-2020 History of Present illness Narrative* Altagracia Bennett - 12/20/2019 12:15 PM EDT Radiology Service Progress Note PATIENT NAME: Gilda Sorto DATE OF SERVICE: December 20, 2019 TIME: 12:45 PM PATIENT IDENTITY VERIFICATION COMPLETED USING TWO (2) IDENTIFIERS: Name and Date of confirmedby patient verbally. FALL SCREENING: Has the patient had 2 falls in the last year or 1 fall with injury or currently using an Ambulatory Assistive Device (Walker, Cane, Wheelchair, Crutches, etc.)? No PATIENT GENDER DATA: Female. status: : No status: NO. PATIENT RELEVANT IMPLANT DATA REVIEWED: Not Applicable RADIOLOGY DEPARTMENT: General X-ray: Exam(s) Completed: Lower Extremity X- Ray(s): Knee, AP / Lat / Tunne / Merchant Left: wt bearing PERIPHERAL IV DATA: Not applicable SIGNED BY: Altagracia Haywood December 20, 2019 12:45 PM documented in this encounterReg[facility]* Diagnosis Renal artery aneurysm (HCC)- Primary Aneurysm of renal artery Abdominal aortic aneurysm without rupture (HCC) Abdominal aneurysm without mention of rupture documented in this encounter [facility] note* Diagnosis Encounter for screening mammogram for breast cancer- Primary documented in this encounter [facility] note* Diagnosis Renal artery aneurysm (HCC) Aneurysm of renal artery documented in this encounter [facility] note* Diagnosis Encounter for screening mammogram for breast cancer- Primary Stage 1 breast cancer, ER-, left (HCC) documented in this encounter [facility] note* Diagnosis Encounter for screening mammogram for breast cancer [facility]* Diagnosis S/P TKR (total knee replacement), left documented in this encounter [facility] note* Diagnosis Primary osteoarthritis of left knee Primary localized osteoarthrosis, lower leg documented [facility] this encounter [facility]* Diagnosis S/P total knee arthroplasty, left documented in this encounter [facility] note* Diagnosis Viral upper respiratory tract infection- Primary Acute upper respiratory infections of unspecified site Cough, unspecified type Insomnia, unspecified type Morbid obesity (CMS/HCC) Morbid obesity History of breast cancer Personal history of malignant neoplasm of breast documented in this encounter [facility] HealthcareEvaluation note* Diagnosis Preop examination- Primary Preoperative examination, unspecified Primary osteoarthritis of left knee Primary localized osteoarthrosis, lower leg Renal artery aneurysm (HCC) Aneurysm of renal artery Essential hypertension Unspecified essential hypertension History of breast cancer Personal history of malignant neoplasm of breast Pain Generalized pain documented in this encounter [facility] CenterEvaluation noteNo assessment information availableZanesville City Hospital Work Phone: Evaluation note* Diagnosis Contusion of right lower leg, initial encounter- Primary Pain in right lower leg Traumatic hematoma of right lower leg, initial encounter documented in this encounter [facility] HealthcareEvaluation note* Diagnosis Right leg pain- Primary Pain in soft tissues of limb Contusion of right lower leg, subsequent encounter documented in this encounter [facility] HealthcareEvaluation note* Diagnosis Preop examination- Primary Preoperative examination, unspecified Primary osteoarthritis of left knee Primary localized osteoarthrosis, lower leg Renal artery aneurysm (HCC) Aneurysm of renal artery Essential hypertension Unspecified essential hypertension History of breast cancer Personal history of malignant neoplasm of breast Pain in both hands- Primary documented in this encounter [facility] note* Diagnosis Essential hypertension (CMS/HCC)- Primary Unspecified essential hypertension Stage 3a chronic kidney disease (HCC) (CMS/HCC) Primary hyperparathyroidism (CMS/HCC) Primary hyperparathyroidism Mild major depression (HCC) ([facility]/HCC) Major depressive disorder, single episode, mild SIOBHAN (generalized anxiety disorder) ([facility]/HCC) Generalized anxiety disorder Primary insomnia Persistent disorder of initiating or maintaining sleep Gastroesophageal reflux disease without esophagitis Esophageal reflux Medicare annual wellness visit, subsequent ACP (advance care planning) Other specified counseling Vitamin D deficiency Screening for lipid disorders Postmenopausal syndrome Screening mammogram for breast cancer documented in this encounter [facility] HealthcareEvaluation note* Diagnosis Right ear impacted cerumen- Primary Impacted cerumen documented in this encounter [facility] HealthcareEvaluation note* Diagnosis Impacted cerumen of right ear- Primary Impacted cerumen documented in this encounter [facility] HealthcareEvaluation note* Diagnosis Essential hypertension (CMS/HCC)- Primary Unspecified essential hypertension Peripheral venous insufficiency Unspecified venous (peripheral) insufficiency Stage 3a chronic kidney disease (HCC) (CMS/HCC) Primary osteoarthritis involving multiple joints Other fatigue documented in this encounter [facility]* Diagnosis Acute cough- Primary Bronchitis Bronchitis, not specified as acute or chronic documented in this encounter [facility]* Diagnosis Primary insomnia Persistent disorder of initiating or maintaining sleep SIOBHAN (generalized anxiety disorder) Generalized anxiety disorder documented in this encounter [facility]* Diagnosis Acute pain of right knee- Primary History of fall Personal history of fall Swelling of right knee documented in this encounter [facility] HealthcareReason for referral (narrative)* Diagnostic Procedure Only (Routine) - Pending Review Specialty Diagnoses / Procedures Referred By Elisha tang Referred To Contact [facility] Diagnoses Encounter for screening mammogram for breast cancer Procedures JAKE SCREENING SCREENING MAMMOGRAPHY BI 2-VIEW BREAST INC Sharon Gallagher APRN.CNP [address] [address] [facility] [address] [place] [address] Referral ID Status Reason Start Date Expiration Date Visits Requested Visits Authorized [id number] Pending Review Auto-Generat ed Referral 11/20/2021 12/20/2022 1 1 [facility] for referral (narrative)* Diagnostic Procedure Only (Routine) - Pending Review Specialty Diagnoses / Procedures Referred By Elisha tang Referred To Contact BR IMAGING Diagnoses Encounter for screening mammogram for breast cancer Procedures JKAE SCREENING SCREENING MAMMOGRAPHY 2-VIEW BREAST INC [facility] Sharon Rg APRN.RETOUCHING OPERATOR [address] [address] [facility] [address] [place] [address] Referral ID Status Reason Start Date Expiration Date Visits Requested Visits Authorized [id number] Pending Review Auto-Generat ed Referral 04/16/2023 05/16/2023 1 1 [facility] for referral (narrative)* Diagnostic Procedure Only (Routine) - Closed Specialty Diagnoses / Procedures Referred By Elisha tang Referred To Contact XR IMAGING Diagnoses Pain Procedures XR WRIST GENERAL 3V PA/LAT/OBL BILATERAL RADEX WRIST COMPLETE MINIMUM 3 VIEWS Kayla Mata MD [address] [place] [place] [id number] [place] [address] Referral ID Status Reason Start Date Expiration Date V isits Requested Visits Authorized [id number] Closed Auto-Generate d Referral 03/21/2023 04/19/2024 1 1 * Diagnostic Procedure Only (Routine) - Closed Specialty Diagnoses / Procedures Referred By Contac t Referred To Contact XR IMAGING Diagnoses Pain Procedures XR HAND GENERAL 3V PA/LAT/OBL BILATERAL RADEX HAND MINIMUM 3 VIEWS Kayla Mata MD [address] [place] [address] Xr Imaging [id number] Referral ID Status Reason Start Date Expiration Date V isits Requested Visits Authorized [id number] Closed Auto-Generate d Referral 03/21/2023 04/19/2024 1 1 [facility]No reason for referral information availableKettering [facility] Work Phone: Summary Purpose Family History No Family History Records Found Relationship Condition Age at Onset Recorded Date/T devon father Unknown Heart disease Unknown Relationship Condition Age at Onset Recorded Date/T devon father Unknown Heart disease Unknown Myocardial infarction Unknown sister Asthma Unknown Diabetes mellitus Unknown son History of impaired glucose tolerance Unk nown Overweight Unknown Advance Directives No Advanced Directives Records FoundDocuments on File Type Date Recorded Patient Drilling Engineering Manager Expl anation Advance Directive(s) Advance Directive(s) 12/05/2019 6:09 AM Advance Directive(s) 04/20/2018 10:36 AM Advance Directive(s) 04/12/2018 2:54 PM Advance Directive(s) 09/18/2012 9:11 PM Documents on File Type Date Recorded Patient Drilling Engineering Manager Expl anation Advance Directive(s) Advance Directive(s) 12/05/2019 6:09 AM Advance Directive(s) 04/20/2018 10:36 AM Advance Directive(s) 04/12/2018 2:54 PM Advance Directive(s) 09/18/2012 9:11 PM Documents on File Type Date Recorded Patient Drilling Engineering Manager Expl anation Advance Directive(s) 04/12/2018 2:54 PM Advance Directive(s) 09/18/2012 9:11 PM Documents on File Type Date Recorded Patient Drilling Engineering Manager Expl anation Advance Directive(s) 04/12/2018 2:54 PM Advance Directive(s) 09/18/2012 9:11 PM Advance Directive Response Recorded Date/ Time Advance Directives No January 01, 2018 12:08pm Hospital Course Note HNO ID: [id number] Author: Ez Dean Service: Orthopaedic Surgery Author [...] (more content not included)... Note HNO ID: [id number] Author: Melissa Mccarthy Service: ? Author Type: Nurse Teaching Manager Type: Anesthesia Procedure Notes Filed: 12/05/2019 [...] (more content not included)... Note HNO ID: [id number] Author: Melissa Mccarthy Service: ? Author Type: Nurse Teaching Manager Type: Anesthesia Procedure Notes Filed: 12/05/2019 7:45 AM Note Text: ANESTHESIOLOGY PROCEDURE NOTE Spinal Block General Information Procedure Start Time/Medication Administration: 12/05/2019 7:39 AM Patient location during procedure: ORTimeout Performed Pre-procedure: timeout performed Consent Obtained: Yes (via Surgical Consent) Patient identity confirmed: arm band Reason for Block: primary surgical anesthetic Staffing WAREHOUSE SUPERVISOR: Jailene Mccarthy Preparation Sterility Preparation: hand hygiene [...] not included)... Procedure Findings Note HNO ID: [id number] Author: Melissa Mccarthy Service: ? Author Type: Nurse Teaching Manager Type: Anesthesia Procedure Notes Filed: 12/05/2019 [...] (more content not included)... Note HNO ID: [id number] Author: Melissa Mccarthy Service: ? Author Type: Nurse Teaching Manager Type: Anesthesia Procedure Notes Filed: 12/05/2019 7:45 AM Note Text: ANESTHESIOLOGY PROCEDURE NOTE Spinal Block General Information Procedure Start Time/Medication Administration: 12/05/2019 7:39 AM Patient location during procedure: ORTimeout Performed Pre-procedure: timeout performed Consent Obtained: Yes (via Surgical Consent) Patient identity confirmed: arm band Reason for Block: primary surgical anesthetic Staffing WAREHOUSE SUPERVISOR: Jailene Mccarthy Preparation Sterility Preparation: hand hygiene [...] CNTRST MTRL W/WO CNTRST Paco Haddad MD [address] [place] [address] Ct Imaging Referral ID Status Reason Start Date Expiration Date Visits Requested Visits Authorized [id number] Authorized Auto-Generat ed Referral 09/23/2021 10/23/2022 1 1 Chief Complaint and Reason for Visit Chief Complaint Fall, knee injury Chief Complaint Admit Date Z12.31 September 05, 2024 10: 38am Chief Complaint Admit Date [facility] (QDone) December 06, 2024 1:02 pm Reason for Visit Admit Date Abnormal weight gain December 06, 2024 1:0 2pm Anxiety December 06, 2024 1:02 pm Arthritis December 06, 2024 1:02 pm BMI 36.0-36.9,adult December 06, 2024 1:02 pm Breast cancer December 06, 2024 1:02 pm Dietary surveillance and counseling Iliana 24th, 2025 1:02pm Diverticulitis December 06, 2024 1:02 pm Exercise counseling December 06, 2024 1:02 pm GERD (gastroesophageal reflux disease) J maria del rosario 2024 1:02pm H/O: hysterectomy December 06, 2024 1:02 pm Hx of cholecystectomy December 06, 2024 1: 02pm Hypertension December 06, 2024 1:02 pm Obesity, Class II, BMI 35-39.9 November 1:02pm Additional Source Comments INFORMATION SOURCE (unrecogn ized section and content) DATE CREATED AUTHOR 12/08/2019 [facility] DATE CREATED AUTHOR AUTHOR'S ORGANIZ ATION 10/22/2021 [facility] dical Specialist DATE CREATED AUTHOR AUTHOR'S ORGANIZ ATION 05/08/2022 [facility] DATE CREATED AUTHOR AUTHOR'S ORGANIZ ATION 03/25/2024 [facility] DATE CREATED AUTHOR AUTHOR'S ORGANIZ ATION 09/08/2024 [facility] DATE CREATED AUTHOR AUTHOR'S ORGANIZ ATION 01/12/2025 [facility] dical Specialists EPIC Source Comments (unrecognize d section and content) In the event this informatio n is protected by the Federal Confidentiality of Alcohol and Drug Abuse Patient Records regulations: The Federal rules restrict any use of the information to criminally investigate or prosecute any alcohol or drug abuse patient.[facility] Center[facility] the event this information is protected by the Federal Confidentiality of Alcohol and Drug Abuse Patient Records regulations: The Federal rules restrict any use of the information to criminally investigate or prosecute any alcohol or drug abuse patient.[facility] CenterIn the event this information is protected by the Federal Confidentiality of Alcohol and Drug Abuse Patient Records regulations: The Federal rules restrict any use of the information to criminally investigate or prosecute any alcohol or drug abuse patient.[facility] CenterIn the event this information is protected by the Federal Confidentiality of Alcohol and Drug Abuse Patient Records regulations: The Federal rules restrict any use of the information to criminally investigate or prosecute any alcohol or drug abuse patient.[facility] CenterIn the event this information is protected by the Federal Confidentiality of Alcohol and Drug Abuse Patient Records regulations: The Federal rules restrict any use of the information to criminally investigate or prosecute any alcohol or drug abuse patient.[facility] CenterIn the event this information is protected by the Federal Confidentiality of Alcohol and Drug Abuse Patient Records regulations: The Federal rules restrict any use of the information to criminally investigate or prosecute any alcohol or drug abuse patient.[facility] CenterIn the event this information is protected by the Federal Confidentiality of Alcohol and Drug Abuse Patient Records regulations: The Federal rules restrict any use of the information to criminally investigate or prosecute any alcohol or drug abuse patient.[facility] CenterIn the event this information is protected by the Federal Confidentiality of Alcohol and Drug Abuse Patient Records regulations: The Federal rules restrict any use of the information to criminally investigate or prosecute any alcohol or drug abuse patient.[facility] CenterIn the event this information is protected by the Federal Confidentiality of Alcohol and Drug Abuse Patient Records regulations: The Federal rules restrict any use of the information to criminally investigate or prosecute any alcohol or drug abuse patient.[facility] CenterIn the event this information is protected by the Federal Confidentiality of Alcohol and Drug Abuse Patient Records regulations: The Federal rules restrict any use of the information to criminally investigate or prosecute any alcohol or drug abuse patient.[facility] CenterIn the event this information is protected by the Federal Confidentiality of Alcohol and Drug Abuse Patient Records regulations: The Federal rules restrict any use of the information to criminally investigate or prosecute any alcohol or drug abuse patient.[facility] CenterIn the event this information is protected by the Federal Confidentiality of Alcohol and Drug Abuse Patient Records regulations: The Federal rules restrict any use of the information to criminally investigate or prosecute any alcohol or drug abuse patient.[facility] Reason for Visit (unrecogniz ed section and content) Reason Comments Appointment Reason Comments Radiology CT Specialty Diagnoses / Procedures Referred By Contac t Referred To Contact CT IMAGING Diagnoses Renal artery aneurysm (HCC) Procedures CTA ABD/PEL WO/W IVCON CT ANGIO ABD&PLVIS CNTRST MTRL W/WO CNTRST Paco Haddad MD [address] [place] [address] Ct Imaging Referral ID Status Reason Start Date Expiration Date V isits Requested Visits Authorized [id number] Closed Auto-Generate d Referral 09/23/2021 10/23/2022 1 1 Reason Comments Established Patient Reason Comments Radiology Mammogram Specialty Diagnoses / Procedures Referred By Contac t Referred To Contact BR IMAGING Diagnoses Encounter for screening mammogram for breast cancer Procedures JAKE SCREENING SCREENING MAMMOGRAPHY BI 2-VIEW BREAST INC Sharon Gallagher, [employer] BUSINESS SEGMENT LEADER.RETOUCHING OPERATOR [address] [place] [address] Br Imaging [address] [place] [address] Referral ID Status Reason Start Date Expiration Date V isits Requested Visits Authorized [id number] Closed Auto-Generate d Referral 11/20/2021 12/20/2022 1 1 Reason Comments Radio Gen RMP Reason Comments Radiology XR Reason Comments Cough Nasal Congestion Reason Comments Radio Gen RMP Radiology Service Pr ogress NotePATIENT NAME: Gilda SortoMRN: [id number] OF SERVICE: April 12, 2023TIME: 12:30 PMPATIENT [...] MINIMUM 3 VIEWS Kayla Mata MD [address] [place] [address] [place] [address] Referral ID Status Reason Start Date Expiration Date V isits Requested Visits Authorized [id number] Closed Auto-Generate d Referral 03/21/2023 04/19/2024 1 1 Reason Comments ER Follow-up Reason Comments right leg pain Pt was seen in offic e 02/27 after a fall resulting in contusion of right lower leg & traumatic hematoma of right lower leg. CT was ordered, waiting to be scheduled. Reason Comments Consult Reason Comments Annual Exam Review lab drawn 04/23/2024 Medicare Annual Wellness Visit Subsequen t Reason Comments Cerumen Impaction Pt is being seen for right ear cleaning Reason Comments Cerumen Impaction Reason Comments Arthritis Complaints of genera lized arthritis pain, hurting all over She is taking Advil 2 po at bedtime and using heat. Reason Onset Date Comments Med Refill 10/25/2024 Reason Comments Knee Pain Care Teams (unrecognized sec tion and content) Sonogram Technician Relationship Specialty Start Date End Date Gonsalo Hubbard MD [address] [place] [address] PCP - General 08/31/00 Sonogram Technician Relationship Specialty Start Date End Date Gonsalo Hubbard MD [address] [place] [address] PCP - General 08/31/00 Sonogram Technician Relationship Specialty Start Date End Date Gonsalo Hubbard MD [address] [place] [address] PCP - General 08/31/00 Sonogram Technician Relationship Specialty Start Date End Date Gonsalo Hubbard MD [address] [place] [address] PCP - General 08/31/00 Sonogram Technician Relationship Specialty Start Date End Date Gonsalo Hubbard MD [address] [place] [address] PCP - General 08/31/00 Sonogram Technician Relationship Specialty Start Date End Date Gonsalo Hubbard MD [address] [place] [address] PCP - General 08/31/00 Sonogram Technician Relationship Specialty Start Date End Date Gonsalo Hubbard MD [address] [place] [address] PCP - General 08/31/00 Sonogram Technician Relationship Specialty Start Date End Date Gonsalo Hubbard MD [address] [place] [address] PCP - [employer] 05/16/21 Gonsalo Hubbard MD [address] [place] [address] PCP - General Internal Medicine 12/07/22 lEiud Weiss DPM [address] [place] [address] Referring Physician Podiatry 04/20/23 Ifeanyi Leavitt MD [address] [place] [address] Consulting Physician Dermatology 04/26/23 Sandro Trejo MD [address] [place] [address] [place] [address] Consulting Physician Ophthalmology 04/26/23 Dr Ramirez [facility] Vascular Surgery 11/25/21 Sonogram Technician Relationship Specialty Start Date End Date Gonsalo Hubbard MD [address] [place] [address] PCP - General 08/31/00 Team Status: Active Member Role Status Dates Gonsalo Hubbard MD Primary Care Provider Active Team Status: Inactive Member Role Status Dates Gonsalo Hubbard MD Primary Care Provider Active St art: February 21, 2024 End: February 21, 2024 Juan Lundberg APRN Emergency Provider Active Start: February 21, 2024 End: February 21, 2024 Sonogram Technician Relationship Specialty Start Date End Date Gonsalo Hubbard MD [address] [place] [address] PCP - [employer] 05/16/21 Gonsalo Hubbard MD [address] [place] [address] PCP - General Internal Medicine 12/07/22 Eliud Weiss DPM [address] [place] [address] Referring Physician Podiatry 04/20/23 Ifeanyi Leavitt MD [address] [place] [address] Consulting Physician Dermatology 04/26/23 Sandro Trejo MD [address] [place] [address] Consulting Physician Ophthalmology 04/26/23 Dr Ramirez [facility] Vascular Surgery 11/25/21 Sonogram Technician Relationship Specialty Start Date End Date Gonsalo Hubbard MD [address] [place] [address] PCP - [employer] 05/16/21 Gonsalo Hubbard MD [address] [place] [address] PCP - General Internal Medicine 12/07/22 Elidu Weiss, GOM [address] [place] [address] Referring Physician Podiatry 04/20/23 Ifeanyi Leavitt MD [address] [place] [address] Consulting Physician Dermatology 04/26/23 Sandro Trejo MD [address] [place] [address] Consulting Physician Ophthalmology 04/26/23 Dr Ramirez [facility] Vascular Surgery 11/25/21 Sonogram Technician Relationship Specialty Start Date End Date Gonsalo Hubbard MD [address] [place] [address] PCP - General 08/31/00 Sonogram Technician Relationship Specialty Start Date End Date Gonsalo Hubbard MD [address] [place] [address] PCP - [employer] 05/16/21 Gonsalo Hubbard MD [address] [place] [address] PCP - General Internal Medicine 12/07/22 Eliud Weiss DPM [address] [place] [address] Referring Physician Podiatry 04/20/23 Ifeanyi Leavitt MD [address] [place] [address] Consulting Physician Dermatology 04/26/23 Sandro Trejo MD [address] [place] [address] Consulting Physician Ophthalmology 04/26/23 Dr Ramirez [facility] V[facility] Surgery 11/25/21 Sonogram Technician Relationship Specialty Start Date End Date Gonsalo Hubbard MD [address] [place] [address] PCP - [employer] 05/16/21 Gonsalo Hubbard MD [address] [place] [address] PCP - General Internal Medicine 12/07/22 Eliud Weiss DPM [address] [place] [address] Referring Physician Podiatry 04/20/23 Ifeanyi Leavitt MD [address] [place] [address] Consulting Physician Dermatology 04/26/23 Sandro Trejo MD [address] [place] [address] Consulting Physician Ophthalmology 04/26/23 Dr Ramirez [facility] 11/25/21 Sonogram Technician Relationship Specialty Start Date End Date Gonsalo Hubbard MD [address] [place] [address] PCP - [employer] 05/16/21 Gonsalo Hubbard MD [address] [place] [address] PCP - General Internal Medicine 12/07/22 Eliud Weiss DPM [address] [place] [address] Referring Physician Podiatry 04/20/23 Ifeanyi Leavitt MD [address] [place] [address] Consulting Physician Dermatology 04/26/23 Sandro Trejo MD [address] [place] [address] Consulting Physician Ophthalmology 04/26/23 Jb Li MD [address] [facility] [address], [place] [address] Referring Physician Diagnostic Radiology 05/01/24 Dr Ramirez [facility] Vascular Surgery 11/25/21 Sonogram Technician Relationship Specialty Start Date End Date Gonsalo Hubbard MD [address] [place] [address] PCP - [employer] 05/16/21 Gonsalo Hubbard MD [address] [place] [address] PCP - General Internal Medicine 12/07/22 Eliud Weiss DPM [address] [place] [address] Referring Physician Podiatry 04/20/23 Ifeanyi Leavitt MD [address] [place] [address] Consulting Physician Dermatology 04/26/23 Sandro Trejo MD [address] [place] [address] Consulting Physician Ophthalmology 04/26/23 Jb Li MD [address] [place] [address] [address], [place] [address] Referring Physician Diagnostic Radiology 05/01/24 Dr Ramirez [facility] Vascular Surgery 11/25/21 Team Status: Inactive Member Role Status Dates Gonsalo Hubbard MD Primary Care Provider Active St art: September 05, 2024 End: September 05, 2024 Gi Blandon PA-C Attending Provider Active Start: September 05, 2024 End: September 05, 2024 Sonogram Technician Relationship Specialty Start Date End Date Gonsalo Hubbard MD [address] [place] [address] PCP - [employer] 05/16/21 Gonsalo Hubbard MD [address] [place] [address] PCP - General Internal Medicine 12/07/22 Eliud Weiss DPM [address] [place] [address] Referring Physician Podiatry 04/20/23 Ifeanyi Leavitt MD [address] [place] [address] Consulting Physician Dermatology 04/26/23 Sandro Trejo MD [address] [place] [address] Consulting Physician Ophthalmology 04/26/23 Jb Li MD [address] [place] [address], [place] [address] Referring Physician Diagnostic Radiology 05/01/24 Dr Ramirez [facility] V[facility] 11/25/21 Sonogram Technician Relationship Specialty Start Date End Date Gonsalo Hubbard MD [address] [place] [address] PCP - [employer] 05/16/21 Gonsalo Hubbard MD [address] [place] [address] PCP - General Internal Medicine 12/07/22 Eliud Weiss DPM [address] [place] [address] Referring Physician Podiatry 04/20/23 Ifeanyi Leavitt MD [address] [place] [address] Consulting Physician Dermatology 04/26/23 Sandro Trejo MD [address] [place] [address] [place] [address] Consulting Physician Ophthalmology 04/26/23 Jb Li MD [address] [place] [address], [facility], [place] [address] Referring Physician Diagnostic Radiology 05/01/24 Dr Ramirez [facility] V[facility] Surgery 11/25/21 Sonogram Technician Relationship Specialty Start Date End Date Gonsalo Hubbard MD [address] [place] [address] PCP - [employer] 05/16/21 Gonsalo Hubbard MD [address] [place] [address] PCP - General Internal Medicine 12/07/22 Eliud Weiss DPM [address] [place] [address] Referring Physician Podiatry 04/20/23 Ifeanyi Leavitt MD [address] [place] [address] Consulting Physician Dermatology 04/26/23 Sandro Trejo MD [address] [place] [id number] Consulting Physician Ophthalmology 04/26/23 Jb Li MD [address] [place] [address], [facility] [address], [place] [address] Referring Physician Diagnostic Radiology 05/01/24 Dr Ramirez [facility] Vascular Surgery 11/25/21 Team Status: Inactive Member Role Status Dates Gonsalo Hubbard MD Primary Care Provider Active St art: December 06, 2024 End: December 06, 2024 Chelsey Denton DNP Attending Provider Active S tart: December 06, 2024 End: December 06, 2024 Team Status: Inactive Member Role Status Dates Gonsalo Hubbard MD Primary Care Provider Active St art: December 19, 2024 End: December 19, 2024 CARLINE Wood Attending Provider Active Start: December 19, 2024 End: December 19, 2024 Sonogram Technician Relationship Specialty Start Date End Date Gonsalo Hubbard MD [address] [place] [address] PCP - [employer] 05/16/21 Gonsalo Hubbard MD [address] [place] [address] PCP - General Internal Medicine 12/07/22 Eliud Weiss DPM [address] [place] [address] Referring Physician Podiatry 04/20/23 Ifeanyi Leavitt MD [address] [place] [address] Consulting Physician Dermatology 04/26/23 Sandro Trejo MD [facility] [place] [id number] Consulting Physician Ophthalmology 04/26/23 Jb Li MD [address] [place] [address], [facility] [address], [place] [address] Referring Physician Diagnostic Radiology 05/01/24 Dr Ramirez [facility] Vascular Surgery 11/25/21 Goals (unrecognized section and content) Goals may be documented in a n alternate sectionGoals may be documented in an alternate sectionGoals may be documented in an alternate sectionGoals may be documented in an alternate section FOR RECORDS PERTAINING TO PATIENTS [...] PRIMARY CLINICAL RECORDS. [facility] [employer] [facility]. provides no warranty or guarantee of the accuracy or completeness of information in this document.
== END 2025-01-17 09:48 | disposition home or self-care (01) ==
LOC: RAD 09:48
PROVIDERS: PCP Radiology Diagnostic Radiology; Visit Provider Physician Assistant
DX: M25.561 Pain in right knee (principal)
CPT/HCPCS: 73560; 73564